=== PATIENT | male | born 1950 | race Caucasian/White ===

== ENCOUNTER 2019-03-19 15:45 | Outpatient (RCR) | payer MEDICARE, MEDICAID, SELFPAY | END 2019-04-15 00:01 | LOC: SPT 15:45 | PROVIDERS: Family Provider Family Medicine; Visit Provider Specialist | DX: M50.020 Cervical disc disorder with myelopathy, mid-cervical region, unspecified level (principal) | CPT/HCPCS: 97161; 97530 ==

== ENCOUNTER 2019-04-16 06:00 | Outpatient (RCR) | payer MEDICARE, MEDICAID, SELFPAY | END 2019-05-16 23:59 | disposition home or self-care (01) | LOC: SPT 06:00 | PROVIDERS: Family Provider Family Medicine; PCP Family Medicine; Visit Provider Specialist | DX: M50.020 Cervical disc disorder with myelopathy, mid-cervical region, unspecified level (principal); M25.512 Pain in left shoulder ==

== ENCOUNTER → 2019-04-22 10:00 | Outpatient (BNVA) | payer MEDICARE, MEDICAID, SELFPAY | PROVIDERS: Family Provider Family Medicine; PCP Family Medicine; Visit Provider Nurse Practitioner | DX: F50.01 Anorexia nervosa, restricting type (principal); F41.1 Generalized anxiety disorder; F33.2 Major depressive disorder, recurrent severe without psychotic features | CPT/HCPCS: 99214 ==

== ENCOUNTER → 2019-05-06 08:00 | Outpatient (BNVA) | payer MEDICARE, MEDICAID, SELFPAY | PROVIDERS: Family Provider Family Medicine; PCP Family Medicine; Referring Provider Specialist; Visit Provider Psychiatry & Neurology Neurology | DX: M54.12 Radiculopathy, cervical region (principal); M79.602 Pain in left arm | CPT/HCPCS: 95886; 95908 ==

== ENCOUNTER → 2019-06-17 14:46 | Outpatient (BNVA) | payer MEDICARE, MEDICAID, SELFPAY | PROVIDERS: Family Provider Family Medicine; PCP Family Medicine; Visit Provider Nurse Practitioner | DX: F41.1 Generalized anxiety disorder (principal); F33.2 Major depressive disorder, recurrent severe without psychotic features; F50.01 Anorexia nervosa, restricting type | CPT/HCPCS: 80061; 83036; 99214 ==

== ENCOUNTER 2019-08-13 15:31 | Inpatient (IN) | payer MEDICARE, MEDICAID, SELFPAY ==
[2019-08-13 15:45] VITALS: BP 143/92; PULSE 131; RESP 22; TEMP 36.9; O2SAT 97; BMI 20.5
--- NOTE | 2019-08-13 15:59 | ECG_ITS ---
Measurements Intervals [place] Rate: 119 P: 70 [place]: 160 QRS: 22 QRSD: 86 T: 64 QT: 308 QTc: 433 SINUS TACHYCARDIA POSSIBLE LEFT ATRIAL ENLARGEMENT [-0.1mV P WAVE IN V1/V2] POSSIBLE RIGHT VENTRICULAR CONDUCTION DELAY [RSR (QR) IN V1/V2] Compared to ECG 09/20/2017 11:52:07 Sinus rhythm no longer present Electronically Signed On 08-13-2019 19:29:06 CDT by Kait Angela M.D. [email or web address]
--- NOTE | 2019-08-13 16:00 | W.ED.SOB ---
HPI - SOB/Dyspnea General: Chief Complaint: Shortness of Breath/Dyspnea Stated Complaint: COUGHING UP BLOOD Time Seen by Provider: 08/13/19 15:49 Source: patient Mode of arrival: ambulatory Limitations: no limitations History of Present Illness: HPI Narrative: 69-year-old gentleman with a history of anxiety and depression presents to the emergency department today with complaints of hemoptysis. Symptoms started about 2 weeks ago, he says it is mild and it is just a light amount of blood that he is coughing up. He has been hoping that it would resolve MD elicited complaint: shortness of breath and cough Onset (ago): week(s) (2) Timing: intermittent Severity: mild Exacerbating factors: nothing Relieving factors: nothing Associated symptoms: Reports chest pain, cough and hemoptysis; Deny abdominal pain, fever(s), nausea, polydipsia, polyuria or vomiting Review of Systems General: Reports: 10 or more systems reviewed and unremarkable except in HPI and below Const: Denies: fever, chills or body aches Eyes: Denies: change in vision or blurry vision ENMT: Denies: throat pain, enlarged tonsils, painful swallowing, hoarseness, mouth pain or swelling of lips/tongue Card: Reports: chest pain Resp: Reports: coughing up blood GI: Denies: abdominal pain, nausea or vomiting : Denies: flank pain, painful urination, urinary frequency, urinary urgency or urinary hesitancy Musc: Denies: neck pain, back pain or extremity swelling Skin/Breast: Denies: rash, itching or redness Neuro: Denies: headache, numbness in extremities or weakness in extremities Endo: Denies: excessive urination, excessive thirst or tired all the time [facility] ED PFSH: Medical History (Updated 08/13/19 @ 17:31 by Anjana Gonzalez MD, [facility] [place] Anorexia nervosa, restricting type Generalized anxiety disorder Social History Smoking and tobacco status: current every day smoker Physical Exam Const: COMMON NORMALS: no apparent distress, average body habitus, oriented x3, no limitations, healthy appearing, alert and well nourished HENMT: COMMON NORMALS: normocephalic, head/scalp atraumatic and moist oral mucous membranes HEAD & SCALP: normocephalic and atraumatic Eye: COMMON NORMALS: PERRL, EOMs intact bilaterally, conjunctivae normal and no scleral icterus CONJUNCTIVA: Yes conjunctivae normal PUPIL: Yes PERRL Neck/C-Spine: COMMON NORMALS: full ROM, supple, no meningeal signs, no JVD and no carotid bruits Chest: COMMONS NORMALS: inspection of chest normal and palpation of chest normal Resp: COMMON NORMALS: normal respiratory effort, no retractions, no use of accessory muscles, clear to auscultation bilaterally and percussion normal AUSCULTATION: clear to auscultation bilaterally and diminished lung sounds on the right in the upper lung haines PERCUSSION: percussion normal Cardio: COMMON NORMALS: no JVD, regular rate, regular rhythm, S1 normal heart sound, S2 normal heart sound, no gallops, no clicks, no murmurs, no rub and peripheral pulses 2+ throughout RATE: regular rate RHYTHM: regular rhythm HEART SOUNDS: S1 normal and S2 normal PERIPHERAL PULSES: pulses 2+ throughout GI: COMMON NORMALS: normal to inspection, nondistended, normoactive bowel sounds, soft to palpation, non-tender, no hepatosplenomegaly, no masses and no bruits PALPATION: Yes soft and Yes no hepatosplenomegaly : COMMON NORMALS: Yes no CVA tenderness BLADDER/KIDNEY EXAM: Yes no CVA tenderness Back/Pelvis: COMMON NORMALS: no CVA tenderness Extremity: COMMON NORMALS: normal to inspection, full ROM, normal capillary refill, no calf tenderness and no pedal edema Neuro: COMMON NORMALS: oriented x3 SENSORIUM/ORIENTATION: Yes alert MENINGEAL SIGNS: Yes no meningeal signs Skin: COMMON NORMALS: no rashes or lesions noted, no wounds, skin turgor normal, no jaundice, no petechiae and no mottling GENERAL SKIN EXAM: no rashes or lesions noted and turgor normal Course Consultations: Consultation #1: Dr. Spain, patient's primary care provider. He kindly accepted the patient to his service. Time: 17:46 Consultation #2: Dr. Wong, deicer element winder machine. He will see the patient in the hospital tomorrow. Time: 17:55 Vital Signs: Vital signs: Vital Signs Temperature 98.4 F 08/13/19 15:45 Pulse Rate 103 H 08/13/19 18:02 Respiratory Rate 18 08/13/19 18:02 Blood Pressure 128/81 08/13/19 18:02 Pulse Oximetry 97 08/13/19 18:02 MDM - SOB/Dyspnea MDM Narrative: Medical decision making narrative: 69-year-old male who presented to the emergency department with concerns of hemoptysis. Evaluation in the emergency department shows a pretty large right lung mass likely malignant which is causing an obstruction of his right main bronchus with postobstructive atelectasis and pneumonia. He is also septic as evidenced by tachycardia, elevated lactic acid, and his CT findings. He is therefore admitted to the hospital for IV antibiotics and evaluation by the deicer element winder machine. Lab Data: Labs: Lab Results 08/13/19 08/13/19 08/13/19 Range/Units 16:02 16:02 16:02 WBC 28.6 H (4.0-10.0) 10^3/ uL RBC 4.03 L (4.1-5.3) 10^6/u L Hgb 11.0 L (11.7-16.6) g/dL Hct 36.3 L (42.0-52.0) % MCV 90.1 (80-94) fL MCH 27.3 L (28.0-34.0) pg MCHC 30.3 (30.0-36.0) g/dL RDW 13.6 (12.1-15.1) % Plt Count 395 (130-400) 10^3/c mm MPV 9.7 (7.4-10.4) fL Neut % (Auto) 91.4 % Lymph % (Auto) 4.3 % [place] % (Auto) 2.9 % Eos % (Auto) 0.3 % Baso % (Auto) 0.4 % Neut # (Auto) 26.1 H (1.8-7.7) 10^3/u L Lymph # (Auto) 1.2 (0.8-4.8) 10^3/u L [place] # (Auto) 0.8 (0.2-0.9) 10^3/u L Eos # (Auto) 0.1 (0.0-0.8) 10^3/u L Baso # (Auto) 0.1 (0.0-0.1) 10^3/u L Nucleated RBC % (a uto) 0 % Nucleated RBCs # 0.0 /100WBC D-Dimer 0.42 (0-0.59) ug/mIFE U Sodium 138 (136-145) mmol/L Potassium 4.1 (3.5-5.1) mmol/L Chloride 100 (98-107) mmol/L Carbon Dioxide 22 (22-29) mmol/L Anion Gap 20.1 H (5-19) BUN 20 (8-23) mg/dL Creatinine 1.6 H (0.7-1.2) mg/dL GFR Calculation 42.9 L (90-130) mL/min Glucose 192 H (65-115) mg/dL Calculated Osmolal ity 288 (285-295) mOsm/k g Lactic Acid (0.5-2.2) mmol/L Calcium 9.9 (8.5-10.5) mg/dL Total Bilirubin 0.2 (0.15-1.2) mg/dL AST 16 (0-40) U/L ALT 13 (0-41) U/L Alkaline Phosphata se 93 (40-130) IU/L Total Protein 8.3 (6.6-8.7) g/dL Albumin 4.0 (3.5-5.2) g/dL Globulin 4.3 (1.3-4.6) g/dL 08/13/19 Range/Units 16:02 WBC (4.0-10.0) 10^3/ uL RBC (4.1-5.3) 10^6/u L Hgb (11.7-16.6) g/dL Hct (42.0-52.0) % MCV (80-94) fL MCH (28.0-34.0) pg MCHC (30.0-36.0) g/dL RDW (12.1-15.1) % Plt Count (130-400) 10^3/c mm MPV (7.4-10.4) fL Neut % (Auto) % Lymph % (Auto) % [place] % (Auto) % Eos % (Auto) % Baso % (Auto) % Neut # (Auto) (1.8-7.7) 10^3/u L Lymph # (Auto) (0.8-4.8) 10^3/u L [place] # (Auto) (0.2-0.9) 10^3/u L Eos # (Auto) (0.0-0.8) 10^3/u L Baso # (Auto) (0.0-0.1) 10^3/u L Nucleated RBC % (a uto) % Nucleated RBCs # /100WBC D-Dimer (0-0.59) ug/mIFE U Sodium (136-145) mmol/L Potassium (3.5-5.1) mmol/L Chloride (98-107) mmol/L Carbon Dioxide (22-29) mmol/L Anion Gap (5-19) BUN (8-23) mg/dL Creatinine (0.7-1.2) mg/dL GFR Calculation (90-130) mL/min Glucose (65-115) mg/dL Calculated Osmolal ity (285-295) mOsm/k g Lactic Acid 2.8 H (0.5-2.2) mmol/L Calcium (8.5-10.5) mg/dL Total Bilirubin (0.15-1.2) mg/dL AST (0-40) U/L ALT (0-41) U/L Alkaline Phosphata se (40-130) IU/L Total Protein (6.6-8.7) g/dL Albumin (3.5-5.2) g/dL Globulin (1.3-4.6) g/dL Imaging Data^: CTA Chest: Attestation: I personally reviewed and interpreted this imaging study as follows: Radiologist's impression: [place] [address] CT Scan Report Signed Patient: Jevon Jeffrey #: [id number] : 1950Acct#:[id number] Age/Sex: 69 / MADM Date: 08/13/19 [facility] Attending Dr: Ordering Provider/Ordering MD: Anjana Gonzalez MD, [facility] [place] Date of Service: 08/13/19 Procedure(s): CT angio chest PE protcl [id number] Accession Number(s): [id number] Report Number: [id number] PROCEDURE INFORMATION: Exam: CT Angiography Chest With Contrast Exam date and time: 08/13/2019 4:46 PM Age: 69 years old Clinical indication: Other: Hemoptysis; Other: Pain between shoulder blades; Prior surgery; Surgery type: Gb; Additional info: Hemoptysis, interscapular pain TECHNIQUE: Imaging protocol: Computed tomographic angiography of the chest with intravenous contrast. 3D rendering: MIP and/or 3D reconstructed images were created by the technologist. Radiation optimization: All CT scans at this facility use at least one of these dose optimization techniques: automated exposure control; mA and/or kV adjustment per patient size (includes targeted exams where dose is matched to clinical indication); or iterative reconstruction. Contrast material: VISI 320; Contrast volume: 70 ml; Contrast route: IV; COMPARISON: No relevant prior studies available. RADIATION DOSE METRICS: Total DLP: 530.42 mGy-cm FINDINGS: Pulmonary arteries: Normal. No pulmonary emboli. Great vessels off aortic arch: Calcification of the thoracic aorta and/or great vessels consistent with atherosclerotic vessel disease. Aorta: Unremarkable. No aortic aneurysm. No aortic dissection. Lungs: 6.2 x 3.9 x 4.8 cm right right superior hilar/upper lobe mass with obstruction of the right upper lobe bronchus with postobstructive pneumonia/atelectasis and loss of volume. Probable lung cancer. Moderate centrilobular emphysema. Pleural space: Probable pleural based metastasis over the right upper lung field. Heart: Unremarkable. No cardiomegaly. No pericardial effusion. Lymph nodes: Moderate mediastinal and right hilar adenopathy. Gallbladder and bile ducts: Surgical clips in the gallbladder fossa consistent with cholecystectomy. Bones/joints: Postoperative metallic fixation of the cervical spine with or without metallic artifact. Soft tissues: Unremarkable. CT/CT angio chest PE protcl [id number] IMPRESSION: 1. 6.2 x 3.9 x 4.8 cm right right superior hilar/upper lobe mass with obstruction of the right upper lobe bronchus with postobstructive pneumonia/atelectasis and loss of volume. Probable lung cancer. 2. Moderate mediastinal and right hilar metastatic adenopathy. 3. Probable pleural based metastasis over the right upper lung field. 4. Moderate centrilobular emphysema. 5. No pulmonary embolus or aortic dissection. Radiation Dose CTDIVOL = (mGy): DLP = 530.42 (mGy-cm) Dictated By:Gino Stephen MD Signed By:Gino Stephenigned Date/Time:08/13/19 1711 EKG Data^: EKG 1: Attestation: I personally reviewed and interpreted this EKG as follows: EKG Interpretation Date: 08/13/19 EKG interpretation time: 15:54 Interpretation: Sinus tachycardia. Heart rate 119. Right ventricular conduction delay. No ST changes. Discharge Plan Discharge Patient Disposition: Home, Self-Care Clinical Impression: Lung mass, Bronchial obstruction Pneumonia Qualifiers: Pneumonia type: due to unspecified organism Laterality: right Lung location: upper lobe of lung Qualified Code(s): J18.9 - Pneumonia, unspecified organism Condition: Stable Discharge Orders: Discharge Order (Routine); Ordered 08/13/19 Ordered By: Anjana Gonzalez Coding Level of Care Code ED Prospecting Driller for jamaal Killian
[2019-08-13 16:14] LABS: Basophils # 0.1 10^3/uL (0.0-0.1); Basophils % 0.4 %; Eosinophils # 0.1 10^3/uL (0.0-0.8); Eosinophils % 0.3 %; Hematocrit 36.3 % (42.0-52.0); Lymphocytes # 1.2 10^3/uL (0.8-4.8); Lymphocytes % 4.3 %; Mean Corpuscular HGB Conc 30.3 g/dL (30.0-36.0); Mean Corpuscular Hemoglobin 27.3 pg (28.0-34.0); Mean Corpuscular Volume 90.1 fL (80-94); Mean Platelet Volume 9.7 fL (7.4-10.4); Monocytes # 0.8 10^3/uL (0.2-0.9); Monocytes % 2.9 %; Neutrophils # 26.1 10^3/uL (1.8-7.7); Neutrophils % 91.4 %; Nucleated Red Blood Cells % 0 %; Platelet Count 395 10^3/cmm (130-400); Red Blood Count 4.03 10^6/uL (4.1-5.3); Red Cell Distribution Width 13.6 % (12.1-15.1); White Blood Count 28.6 10^3/uL (4.0-10.0)
[2019-08-13 16:30] LABS: D Dimer 0.42 ug/mIFEU (0-0.59)
[2019-08-13 16:34] LABS: Lactic Sepsis W/Reflex 2.8 mmol/L (0.5-2.2)
[2019-08-13 16:35] LABS: Alanine Aminotransferase 13 U/L (0-41); Alkaline Phosphatase 93 IU/L (40-130); Anion Gap 20.1 (5-19); Aspartate Amino Transferase 16 U/L (0-40); Blood Urea Nitrogen 20 mg/dL (8-23); Calcium 9.9 mg/dL (8.5-10.5); Carbon Dioxide 22 mmol/L (22-29); Chloride 100 mmol/L (98-107); Globulin 4.3 g/dL (1.3-4.6); Glomerular Filtration Rate 42.9 mL/min (90-130); Glucose 192 mg/dL (65-115); Osmolality Calculated 288 mOsm/kg (285-295); Potassium 4.1 mmol/L (3.5-5.1); Sodium 138 mmol/L (136-145); Total Bilirubin 0.2 mg/dL (0.15-1.2); Total Protein 8.3 g/dL (6.6-8.7)
[2019-08-13] MEDS: iodixanol 320 mg/mL 100mL Btl IV (16:54)
[2019-08-13 17:28] VITALS: BP 104/71; PULSE 116; RESP 16; O2SAT 97
[2019-08-13] MEDS: cefTRIAXone 1,000 MG in sodium chloride 0.9% (plus) 50 ML 100 MG IV (17:36)
[2019-08-13 17:59] LABS: Reflex Lactate Order REFLEX LACTIC ORDERD
[2019-08-13] MEDS: sodium chloride 0.9% 1,000 ML 999 ML IV (18:01)
[2019-08-13 18:02] VITALS: BP 128/81; PULSE 103; RESP 18; O2SAT 97
[2019-08-13] MEDS: HYDROcodone-acetaminophen 5-325 mg Tablet 1 TAB PO (18:26)
[2019-08-13] MEDS: piperacillin-tazobactam 3.375 GM in sodium chloride 0.9% (plus) 50 ML IV (18:36)
[2019-08-13 18:55] VITALS: BP 128/82; PULSE 98; RESP 18; O2SAT 97
--- NOTE | 2019-08-13 19:19 | PC.NURSE ---
Report received from Leyda GARCIA at this time in the ER. Patient arrive in the ER today with complaint of coughing up blood for two weeks. Patient stated that he did not come sooner because he thought it would go away. CT scan in the ER shows possible lung cancer. Patient is A&Ox4 per Leyda GARCIA. Patient has a # 18 gauge in his left AC. Patient was given 1 liter of fluids, 1 gram of Rocephin and a Hydrocodone in the ER. Patient has Zosyn running.
[2019-08-13 20:11] VITALS: BP 103/69; PULSE 89; RESP 22; TEMP 36.8; O2SAT 96
--- NOTE | 2019-08-13 20:19 | P.HP_ITS ---
Providers/Chief Complaint Admitting Physician: Silverio Spain MD Primary Care Provider: Silverio Spain MD Chief Complaint: COUGHING UP BLOOD History of Present Illness Chalino Jeffrey is a 69 year old male with past medical history of anxiety and depression who presented to the emergency department with 2 weeks of coughing up blood. The patient said that he has had a mild cough that started approximately 2 weeks ago and initially there was minimal blood tinge in it and it gradually has worsened. There is not a large amount of blood at this time. The patient has also felt like he would be losing weight if not drinking Ensure on a regular basis. The patient has felt more fatigued in general. Otherwise he has been doing well without any chest pains, fever, significant change in dyspnea, abdominal pain, nausea, vomiting, diarrhea, constipation. Medications/Allergies Home Medications Medication Instructions Recorded Confirmed Last Taken Type alprazolam 0.5 mg tablet 0.5 mg PO BID PRN #60 tab 06/18/19 08/13/19 08/12/19 Rx Zoloft 200 mg PO DAILY 08/13/19 08/13/19 08/13/19 History Zyprexa 15 mg PO BEDTIME 08/13/19 08/13/19 08/12/19 History amoxicillin-pot clavulanate 1 tab PO BID #14 tab 08/13/19 Unknown Rx [Augmentin] multivitamin [Multiple Vitamins] 1 tab PO DAILY 08/13/19 08/13/19 08/12/19 History Allergies Allergy/AdvReac Type Severity Reaction Status Date / Time No Known Allergies Allergy Verified 05/06/19 08:09 PFSH Acute PFSH: Medical History (Updated 08/13/19 @ 20:23 by Silverio Spain MD) Anorexia nervosa, restricting type Closed left clavicular fracture Generalized anxiety disorder Surgical History (Updated 08/13/19 @ 20:23 by Silverio Spain MD) H/O neck surgery Hx of cholecystectomy Social History (Updated 08/13/19 @ 20:24 by Silverio Spain MD) Smoking and tobacco status: current every day smoker cigarettes Years cigarettes smoked: 50 Alcohol intake: current Alcohol intake frequency: few times a month Vitals/I&O/Wt Last Vital Signs Temp 98.4 F 08/13/19 15:45 Pulse 98 08/13/19 18:55 Resp 18 08/13/19 18:55 BP 128/82 08/13/19 18:55 Pulse Ox 97 08/13/19 18:55 08/13/19 08/13/19 08/13/19 06:59 14:59 22:59 Intake Total 50 / 50 Balance 50 / 50 Weight last 48 hrs Weight 135 lb Physical Exam Narrative: EXAM NARRATIVE: General: Alert and oriented x3 Eyes: PERRLA, EOMI Mouth: Mucous membranes moist without lesions Cardiac: Regular rhythm with mild tachycardia without murmurs Lungs: Decreased air entry bilaterally. Scattered rhonchi. Mildly decreased air entry in the right upper lung. No significant wheezes or crackles at this time. Abdomen: Soft, nontender, no hepatosplenomegaly noted Extremities: No edema Data : 08/13/19 16:02 08/13/19 16:02 A&P Assessment and plan (1) Lung mass: Status: Acute (2) Pneumonia: Status: Acute Qualifiers: Laterality: right Lung location: upper lobe of lung Pneumonia type: due to unspecified organism Qualified Code(s): J18.9 - Pneumonia, unspecified organism (3) Major depressive disorder, recurrent severe without psychotic features: Status: Acute Additional A&P Information 1. Lung mass -the patient has a new finding of a lung mass in the right upper l obe that is causing obstruction of the bronchus. The mass is 6.2 cm in diameter and is causing a postobstructive pneumonia. Dr. Wong has been consulted by the ER physician and further recommendations will be given. I appreciate his consultation. The patient is in agreement with proceeding with biopsy and treatment options. 2. Right upper lobe pneumonia -the patient has a postobstructive pneumonia secondary to the above lung mass. His lactic acid level is 2.8. We will recheck this level to be sure that it is improving. The patient will have his pro calcitonin level checked. He will be given another fluid bolus to complete the 30mL/kg bolus. Blood cultures have been ordered. The patient has been given Zosyn in the ER and I will add levofloxacin for coverage. I would expect to give the patient IV antibiotics for the next 2 to 3 days. Currently the patient is stable. We will have him on telemetry in case of signs that he is worsening. 3. Depression -the patient is currently stable and seems to be taking the news well. We will certainly watch for signs of this worsening. 4. Prophylaxis -Lovenox for DVT prophylaxis. Attestations Medical Necessity Statement*: The patient will be here for greater than 2 midnights for treatment of postobstructive pneumonia secondary to a new lung mass finding. Coding Level of Care Code Acute Crawler Crane Operator for Padmini Killian Diagnoses Lung mass R91.8 Pneumonia J18.9 Laterality: right Lung location: upper lobe of lung Pneumonia type: due to unspecified organism Major depressive disorder, recurrent severe without psychotic features F33.2
[2019-08-13 20:49] LABS: Procalcitonin 0.13 ng/mL (0-0.5)
[2019-08-13] MEDS: sodium chloride 0.9% 500 ML IV (21:23)
[2019-08-13] MEDS: heparin 5,000 unit/mL INJ 1 mL 5000 UNIT SUBCUT (21:23)
[2019-08-13] MEDS: OLANZapine 10 mg TABLET PO (21:23)
[2019-08-13] MEDS: OLANZapine 5 mg TABLET PO (21:23)
[2019-08-13] MEDS: levofloxacin-dextrose 5 % 500 MG/100 ML PREMIX 100 MG IV (21:24)
[2019-08-13 22:23] VITALS: O2SAT 98
[2019-08-13] MEDS: sodium chloride 0.9% 1,000 ML 100 ML IV (22:45)
[2019-08-14] VITALS: BP 101/68; PULSE 77; RESP 18; O2SAT 96
[2019-08-14] MEDS: piperacillin-tazobactam 3.375 GM in sodium chloride 0.9% (plus) 50 ML IV ×3 (01:54→17:36)
[2019-08-14 04:00] VITALS: BP 100/63; PULSE 79; RESP 20; TEMP 36.6; O2SAT 96
[2019-08-14] MEDS: heparin 5,000 unit/mL INJ 1 mL 5000 UNIT SUBCUT ×3 (05:15→21:20)
[2019-08-14 05:39] LABS: Basophils # 0.1 10^3/uL (0.0-0.1); Basophils % 0.6 %; Eosinophils # 0.5 10^3/uL (0.0-0.8); Eosinophils % 3.2 %; Hematocrit 31.9 % (42.0-52.0); Hemoglobin 9.7 g/dL (11.7-16.6); Lymphocytes # 2.3 10^3/uL (0.8-4.8); Lymphocytes % 16.4 %; Mean Corpuscular HGB Conc 30.4 g/dL (30.0-36.0); Mean Corpuscular Hemoglobin 27.2 pg (28.0-34.0); Mean Corpuscular Volume 89.4 fL (80-94); Mean Platelet Volume 9.6 fL (7.4-10.4); Monocytes % 6.9 %; Neutrophils # 10.3 10^3/uL (1.8-7.7); Neutrophils % 72.3 %; Nucleated Red Blood Cells % 0 %; Platelet Count 349 10^3/cmm (130-400); Red Blood Count 3.57 10^6/uL (4.1-5.3); Red Cell Distribution Width 13.6 % (12.1-15.1); White Blood Count 14.3 10^3/uL (4.0-10.0)
[2019-08-14 06:03] LABS: Blood Urea Nitrogen 16 mg/dL (8-23); Calcium 8.5 mg/dL (8.5-10.5); Carbon Dioxide 21 mmol/L (22-29); Chloride 110 mmol/L (98-107); Glomerular Filtration Rate 59.9 mL/min (90-130); Glucose 92 mg/dL (65-115); Osmolality Calculated 290 mOsm/kg (285-295); Sodium 142 mmol/L (136-145)
[2019-08-14 06:04] LABS: Lactic Acid level (Lactate) 0.5 mmol/L (0.5-2.2)
[2019-08-14 07:07] LABS: Procalcitonin 0.55 ng/mL (0-0.5)
[2019-08-14 07:47] VITALS: BP 123/74; PULSE 80; RESP 18; TEMP 36.4; O2SAT 98
[2019-08-14] MEDS: sertraline 100 mg Tablet 200 MG PO (08:34)
[2019-08-14] MEDS: multivitamin therapeutic Tablet 1 TAB PO (08:34)
[2019-08-14] MEDS: sodium chloride 0.9% 1,000 ML 100 ML IV ×2 (09:25→19:26)
--- NOTE | 2019-08-14 09:43 | P.CONIM_ITS ---
Providers/Reason For Consult Consulting Physican/Specialty*: Pulmonary critical care medicine Reason for Consult*: Right upper lobe lung mass Attending Physician: Silverio Spain MD Primary Care Provider: Silverio Spain MD History of Present Illness History of Present Illness Chalino Jeffrey is a 69 year old male who presented to the ED yesterday with a complaint of 2 weeks history of hemoptysis. The patient is an active smoker and prior to experiencing hemoptysis he was having chronic cough with sputum production intermittent wheezing and exertional shortness of breath with walking. When the patient presented to the ED with hemoptysis yesterday, he underwent a CT scan of the chest which revealed a 6.2 cm right upper lobe lung mass with cavitary lesion as well as significant volume loss on the right side. The patient was found to have leukocytosis with elevated lactic acid and was admitted with a diagnosis of pneumonia. Currently the patient is on piperacillin tazobactam and Levaquin. It appears that the patient had quit smoking and has been vaping with nicotine products over the past 6 or so years in an attempt to quit smoking. The patient was seen and examined today. Patient is comfortable in bed. Denies any resting shortness of breath. He is complaining of some nausea but no vomiting. He is denying any history of significant weight loss or loss of appetite. Review of Systems Narrative: General: No fevers chills night sweats. Positive for fatigue Skin: No rash HEENT: No nasal congestion, rhinitis, sinusitis, sneezing, hoarseness of voice. Neck: There is no neck swelling, mass or swollen glands. Respiratory: Please see my HPI. Cardiovascular: No chest pain, resting shortness of breath, orthopnea, proximal nocturnal dyspnea, palpitation or lower extremity edema. Gastrointestinal: Mild nausea but no abdominal pain, vomiting, melena or symptoms suggestive of GERD. Musculoskeletal: No joint pain or swelling, muscle weakness, morning stiffness, numbness or tingling. Neurological: Patient is awake alert and oriented x3, no paralysis, gross motor function is normal. Psychiatric: Has history of anxiety Meds/Allergies Home Medications and Allergies Home Medications Medication Instructions Recorded Confirmed Last Taken Type alprazolam 0.5 mg tablet 0.5 mg PO BID PRN #60 tab 06/18/19 08/13/19 08/12/19 Rx Zoloft 200 mg PO DAILY 0408/13/19 08/13/19 History Zyprexa 15 mg PO BEDTIME 08/13/19 08/13/19 08/12/19 History amoxicillin-pot clavulanate 1 tab PO BID #14 tab 08/13/19 Unknown Rx [Augmentin] multivitamin [Multiple Vitamins] 1 tab PO DAILY 08/13/19 08/13/19 08/12/19 History Allergies Allergy/AdvReac Type Severity Reaction Status Date / Time No Known Allergies Allergy Verified 05/06/19 08:09 Current Medications Current Medications Generic Name Dose Route Start Last Admin Trade Name Freq PRN Reason Stop Dose Admin Hydrocodone Bitart/Acetaminophen 1 tab 08/13/19 17:55 08/13/19 18:26 [place] 5-325 Mg PO 1 tab Q4H PRN Administration MODERATE TO SEVERE PAIN Heparin Sodium (Beef Lung) 5,000 unit 08/13/19 21:00 08/14/19 05:15 Heparin SUBCUT 5,000 unit Q8H VIKY Administration Sodium Chloride 1,000 mls @ 100 mls/hr 08/13/19 18:00 08/14/19 09:25 Sodium Chloride 0.9% IV 100 mls/hr .Q10H VIKY Administration Levofloxacin/Dextrose 500 mg in 100 mls @ 100 mls/hr 08/13/19 20:15 08/13/19 22:31 Levaquin-D5w IV Infused Q24H VIKY Infusion Protocol Piperacillin Sod/Tazobactam 50 mls @ 12.5 mls/hr 08/14/19 02:00 08/14/19 05:09 Sod 3.375 gm/ Sodium Chloride IV Infused Q8H VIKY Infusion Protocol Multivitamins Therapeutic 1 tab 08/14/19 09:00 08/14/19 08:34 Multivitamin Tab PO 1 tab DAILY VIKY Administration Olanzapine 10 mg 08/13/19 21:00 08/13/19 21:23 Zyprexa PO 10 mg BEDTIME VIKY Administration Olanzapine 5 mg 08/13/19 21:00 08/13/19 21:23 Zyprexa PO 5 mg BEDTIME VIKY Administration Sertraline HCl 200 mg 08/14/19 09:00 08/14/19 08:34 Zoloft PO 200 mg DAILY VIKY Administration PFSH Acute PFSH: Medical History Anorexia nervosa, restricting type Closed left clavicular fracture Generalized anxiety disorder Surgical History H/O neck surgery Hx of cholecystectomy Social History Smoking and tobacco status: current every day smoker cigarettes Years cigarettes smoked: 50 Alcohol intake: current Alcohol intake frequency: few times a month Vitals/I&O/Wt Last Vital Signs Temp 97.6 F 08/14/19 07:47 Pulse 80 08/14/19 07:47 Resp 18 08/14/19 07:47 BP 123/74 08/14/19 07:47 Pulse Ox 98 08/14/19 07:47 08/13/19 08/14/19 08/14/19 22:59 06:59 14:59 Intake Total 1945 / 1945 200 / 2145 1000 / 1000 Output Total 275 / 275 450 / 725 250 / 250 Balance 1670 / 1670 -250 / 1420 750 / 750 Weight last 48 hrs Weight 135 lb Physical Exam Narrative: EXAM NARRATIVE: General: Patient is awake alert and oriented, in no distress. HEENT: Pupil bilateral symmetric, light and accommodation reflex present, extraocular muscle movement intact, no deformity of the nose Neck: No JVD, no cervical or supraclavicular lymphadenopathy. Respiratory: Inspection: No visible deformity of the chest wall, no scar, no mass lesion Palpation: Trachea is deviated to the right, reduced expansion in the right hemithorax anteriorly, reduced vocal fremitus in the right upper anterior chest Percussion: Dullness to percussion over the right upper anterior chest, tympanic do not radiates Auscultation: Vesicular breath sound with prolonged expiration, no crackles or wheezing occasional rhonchi, reduced breath sound over the right anterior upper chest Cardiovascular: Regular rate and rhythm, S1-S2 present, no murmur, no right ventricular heave, no peripheral edema. Abdomen: Soft, nontender, nondistended, positive bowel sound. No palpable organomegaly. Musculoskeletal: No obvious joint deformity, gait was not examined Skin: No rash, no evidence of erythema nodosum or multiforme. Neuro: Mental status is normal, no gross cranial nerve deficit, normal motor and coordination. Data Micro: Micro: Microbiology 08/13/19 21:57 Blood Culture - Pr eliminary Blood SPECIMEN [facility] 08/13/19 18:02 Blood Culture - Pr eliminary Blood SPECIMEN [facility] Other Data: Other data: I have reviewed the patient's laboratory, microbiologic and radiologic data. As described in the history of present illness the patient has right upper lobe cavitary lesion which is likely malignant. The leukocytosis has improved significantly. The sputum culture is negative so far. A&P Assessment and plan (1) Lung mass: The patient has a 6.2 cm right upper lobe cavitary mass with loss of volume and infiltration of the right upper lobe bronchus. There is also mediastinal hilar lymphadenopathy. This is malignant unless proven otherwise. 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 The patient is currently on antibiotic therapy for postobstructive pneumonia. I am going to perform a bronchoscopy tomorrow. I have discussed the risks and benefits involved with the procedure with the patient. The patient will undergo a bronchoscopy with bronchoalveolar lavage, endobronchial and transbronchial biopsies as well as endobronchial ultrasound-guided transbronchial needle aspiration of lymph nodes. I will also possibly perform a transthoracic needle biopsy of the right upper lobe lung mass. The patient also has evidence of emphysema on the CT scan. He will need optimization if he has COPD. He will need pulmonary function test, 6-minute walk test with pulse oximetry as part of work-up for possible COPD as well as lung mass. The patient will stay n.p.o. past midnight today. Please hold the subcu heparin tomorrow morning. If the patient is stable otherwise he can be discharged home after the bronchoscopy tomorrow and he can follow-up with me in the office in a week. Thank you for the consultation! 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
[2019-08-14 10:43] VITALS: BP 132/77; PULSE 91; RESP 15; TEMP 36.4; O2SAT 92
--- NOTE | 2019-08-14 12:05 | PM.PN ---
Subjective Subjective: Interval history: The patient states that he is feeling better today. His cough is improving and he denies any hemoptysis today. The patient spoke with Dr. Wong and he is in agreement with the plan of care. Patient denies any abdominal pain, nausea, vomiting, diarrhea, constipation. Vitals/I&O/Wt Last Vital Signs Temp 97.6 F 08/14/19 10:43 Pulse 91 08/14/19 10:43 Resp 15 08/14/19 10:43 BP 132/77 08/14/19 10:43 Pulse Ox 92 08/14/19 10:43 08/13/19 08/14/19 08/14/19 22:59 06:59 14:59 Intake Total 1945 / 1945 200 / 2145 1000 / 1000 Output Total 275 / 275 450 / 725 850 / 850 Balance 1670 / 1670 -250 / 1420 150 / 150 Weight last 48 hrs Weight 135 lb Physical Exam Narrative: EXAM NARRATIVE: General: Alert and oriented x3 Cardiac: Regular rhythm with mild tachycardia without murmurs Lungs: Decreased air entry bilaterally. Scattered rhonchi. Mildly decreased air entry in the right upper lung. No significant wheezes or crackles at this time. Abdomen: Soft, nontender, no hepatosplenomegaly noted Extremities: No edema Data : 08/14/19 05:20 08/14/19 05:20 Micro: Microbiology 08/13/19 21:57 Blood Culture - Preliminary Blood SPECIMEN COLLECTED 08/13/19 18:02 Blood Culture - Preliminary Blood SPECIMEN COLLECTED A&P Assessment and plan (1) Lung mass: Status: Acute (2) Pneumonia: Status: Acute Qualifiers: Laterality: right Lung location: upper lobe of lung Pneumonia type: due to unspecified organism Qualified Code(s): J18.9 - Pneumonia, unspecified organism (3) Major depressive disorder, recurrent severe without psychotic features: Status: Acute Additional A&P Information 1. Lung mass -the patient has a new finding of a lung mass in the right upper lobe that is causing obstruction of the bronchus. The mass is 6.2 cm in diameter and is causing a postobstructive pneumonia. Dr. Wong has seen the patient and plans for a bronchoscopy with biopsy tomorrow. If he is doing well after this, the patient may be able to be discharged home in the afternoon. Further follow-up per Dr. Wong. 2. Right upper lobe pneumonia -the patient's lactic acid levels have improved and overall his white blood cell count has significantly improved from 28 to 14. We will continue with current IV antibiotics and if he continues to do well tomorrow we will plan for discharge home with outpatient antibiotics by mouth. This is certainly due to a postobstructive pneumonia. 3. Depression -the patient is currently stable and seems to be taking the news well. We will certainly watch for signs of this worsening. 4. Anemia -the patient has anemia and it is likely due to anemia of chronic disease, however I will check iron, vitamin B12 and folic acid levels and we will replace these if needed. 5. Prophylaxis -Heparin for DVT prophylaxis. We will hold tomorrow a.m.'s dose prior to procedure. Attestations Medical Necessity Statement*: The patient continues to need IV antibiotic therapy and inpatient therapy for the above issues. Possible discharge home over the next 1 to 2 days depending on his course. 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
[2019-08-14 12:45] LABS: Iron 55 ug/dL (59-158); Percent Saturation 28.2 % (20-50); Total Iron Binding Capacity 195 mcg/dl; Unsaturated Iron Binding 140 ug/dL (112-347)
[2019-08-14 13:01] LABS: Vitamin B12 708 pg/mL (232-1245)
[2019-08-14 13:02] LABS: Folate Level 16.1 ng/mL (4.5-32.2)
[2019-08-14] MEDS: HYDROcodone-acetaminophen 5-325 mg Tablet 1 TAB PO ×2 (13:53→21:20)
[2019-08-14 15:15] VITALS: BP 119/73; PULSE 83; RESP 20; TEMP 36.8
[2019-08-14] MEDS: nicotine 14 mg Patch 1 PATCH TRANSDERMA (16:42)
[2019-08-14 20:00] VITALS: BP 147/84; PULSE 99; RESP 20; TEMP 37.5; O2SAT 97
[2019-08-14] MEDS: levofloxacin-dextrose 5 % 500 MG/100 ML PREMIX 100 MG IV (21:17)
[2019-08-14] MEDS: OLANZapine 5 mg TABLET PO (21:19)
[2019-08-14] MEDS: ALPRAZolam 0.5 mg Tablet PO (21:20)
[2019-08-14] MEDS: OLANZapine 10 mg TABLET PO (21:20)
[2019-08-15] VITALS (20 sets, daily range): BP systolic 118–158; BP diastolic 71–103; PULSE 96–134; RESP 16–20; TEMP 35.9–37.2; O2SAT 94–100
[2019-08-15] MEDS: piperacillin-tazobactam 3.375 GM in sodium chloride 0.9% (plus) 50 ML IV (02:08)
[2019-08-15 05:06] LABS: Alanine Aminotransferase 10 U/L (0-41); Albumin Level 3.1 g/dL (3.5-5.2); Alkaline Phosphatase 68 IU/L (40-130); Anion Gap 15.5 (5-19); Aspartate Amino Transferase 15 U/L (0-40); Blood Urea Nitrogen 10 mg/dL (8-23); Calcium 8.6 mg/dL (8.5-10.5); Carbon Dioxide 20 mmol/L (22-29); Chloride 106 mmol/L (98-107); Globulin 3.8 g/dL (1.3-4.6); Glomerular Filtration Rate 73.9 mL/min (90-130); Glucose 92 mg/dL (65-115); Osmolality Calculated 282 mOsm/kg (285-295); Potassium 3.5 mmol/L (3.5-5.1); Sodium 138 mmol/L (136-145); Total Bilirubin 0.2 mg/dL (0.15-1.2); Total Protein 6.9 g/dL (6.6-8.7)
[2019-08-15 05:12] LABS: Basophils # 0.1 10^3/uL (0.0-0.1); Basophils % 0.6 %; Eosinophils # 0.5 10^3/uL (0.0-0.8); Hematocrit 34.2 % (42.0-52.0); Hemoglobin 9.6 g/dL (11.7-16.6); Lymphocytes # 2.4 10^3/uL (0.8-4.8); Lymphocytes % 18.8 %; Mean Corpuscular HGB Conc 28.1 g/dL (30.0-36.0); Mean Corpuscular Hemoglobin 27.3 pg (28.0-34.0); Mean Corpuscular Volume 97.2 fL (80-94); Mean Platelet Volume 9.9 fL (7.4-10.4); Monocytes # 0.9 10^3/uL (0.2-0.9); Monocytes % 6.5 %; Neutrophils # 9.1 10^3/uL (1.8-7.7); Neutrophils % 69.8 %; Nucleated Red Blood Cells % 0 %; Platelet Count 286 10^3/cmm (130-400); Red Blood Count 3.52 10^6/uL (4.1-5.3); Red Cell Distribution Width 13.5 % (12.1-15.1)
[2019-08-15] MEDS: sodium chloride 0.9% 1,000 ML 100 ML IV (05:30)
--- NOTE | 2019-08-15 07:25 | PC.NURSE ---
To surgery via wheelchair for Bronchoscopy
--- NOTE | 2019-08-15 07:34 | P.ANESASSM_ITS ---
Pre-Anesthetic Assessment Pre-Anesthetic Assessment: Height/Weight: Height 1.73 m Weight 61.235 kg Temp Pulse Resp BP Pulse Ox 98.5 F 108 H 18 158/91 98 08/15/19 07:28 08/15/19 07:28 08/15/19 07:28 08/15/19 07:28 08/15/19 07:28 Preop Diagnosis: hemoptysis Proposed Procedure: Operation Date: 08/15/19 09:10 Proposed Procedures p Ebus(Right) - Biplab MD Judith Familial anesthetic complications: None Was Beta Jenniffer taken within 24 hours: N/A Last intake: Intake Last Liquid Date 08/14/19 Last Liquid Time 22:00 Last Solid Date 08/14/19 Last Solid Time 17:00 Social: Social History: No alcohol Comment: vapes - nicotine Exam: Pre-Anes Outpt Exam: alert, oriented x 3, clear to auscultation bilaterally and regular rate & rhythm Airway: Cervical ROM: WNL MP: 3 Additional comments: dentures Pulmonary: Comments: hemoptysis, lung mass, pnrumonia, bronchial obstruction CV/HEM: CV/HEM: None reported : : None reported Hepatic: Hepatic: None reported GI: GI: None reported Metabolic: Metabolic: None reported Musc/skel: Musc/skel: None reported Neuropsych: Neuropsych: None reported Anesthetic Plan: ASA status: 3 Anesthesia: General Risk of > 500 ml blood loss (7ml/kg in children): No Meds/Allergies Current Medications: Current Medications Generic Name Dose Route Start Last Admin Trade Name Freq PRN Reason Stop Dose Admin Hydrocodone Bitart /Acetaminophen 1 tab 08/13/19 17:55 08/14/19 21:20 [place] 5-325 Mg PO 1 tab Q4H PRN Administration MODERATE TO SEVER E PAIN Alprazolam 0.5 mg 08/13/19 20:18 08/14/19 21:20 Xanax PO 0.5 mg BID PRN Administration anxiety Heparin Sodium (Be ef Lung) 5,000 unit 08/13/19 21:00 08/15/19 05:11 Heparin SUBCUT Not Given Q8H VIKY Sodium Chloride 1,000 mls @ 100 m ls/hr 08/13/19 18:00 08/15/19 05:30 Sodium Chloride 0.9% IV 100 mls/hr .Q10H VIYK Administration Levofloxacin/Dextr ose 500 mg in 100 mls @ 100 mls/hr 08/13/19 20:15 08/14/19 21:17 Levaquin-D5w IV 100 mls/hr Q24H VIKY Administration Protocol Piperacillin Sod/T azobactam 50 mls @ 12.5 mls /hr 08/14/19 02:00 08/15/19 06:18 Sod 3.375 gm/ So dium Chloride IV Infused Q8H VIKY Infusion Protocol Multivitamins Ther apeutic 1 tab 08/14/19 09:00 08/14/19 08:34 Multivitamin Tab PO 1 tab DAILY VIKY Administration Nicotine 1 patch 08/14/19 16:30 08/14/19 16:42 Nicoderm 14 Mg P atch TRANSDERMA 1 patch DAILY VIKY Administration Olanzapine 10 mg 08/13/19 21:00 08/14/19 21:20 Zyprexa PO 10 mg BEDTIME VIKY Administration Olanzapine 5 mg 08/13/19 21:00 08/14/19 21:19 Zyprexa PO 5 mg BEDTIME VIKY Administration Sertraline HCl 200 mg 08/14/19 09:00 08/14/19 08:34 Zoloft PO 200 mg DAILY VIKY Administration PFSH Anesthesia PFSH: Medical History Anorexia nervosa, restricting type Closed left clavicular fracture Generalized anxiety disorder Surgical History H/O neck surgery Hx of cholecystectomy Social History Smoking and tobacco status: current every day smoker cigarettes Years cigarettes smoked: 50 Alcohol intake: current Alcohol intake frequency: few times a month Data Anesthesia CBC & Chem 7: 08/15/19 03:44 08/15/19 03:44 Other Labs: Laboratory Results - last 48 hr 08/13/19 08/13/19 08/13/19 16:02 16:02 16:02 WBC 28.6 H RBC 4.03 L Hgb 11.0 L Hct 36.3 L MCV 90.1 MCH 27.3 L MCHC 30.3 RDW 13.6 Plt Count 395 MPV 9.7 Neut % (Auto) 91.4 Lymph % (Auto) 4.3 [place] % (Auto) 2.9 Eos % (Auto) 0.3 Baso % (Auto) 0.4 Neut # (Auto) 26.1 H Lymph # (Auto) 1.2 [place] # (Auto) 0.8 Eos # (Auto) 0.1 Baso # (Auto) 0.1 Nucleated RBC % (auto) 0 Nucleated RBCs # 0.0 D-Dimer 0.42 Sodium 138 Potassium 4.1 Chloride 100 Carbon Dioxide 22 Anion Gap 20.1 H BUN 20 Creatinine 1.6 H GFR Calculation 42.9 L Glucose 192 H Calculated Osmolality 288 Lactic Acid Lactic Acid (Sepsis) Calcium 9.9 Iron TIBC % Saturation Unsat Iron Binding Total Bilirubin 0.2 AST 16 ALT 13 Alkaline Phosphatase 93 C-React Prot High Sens Total Protein 8.3 Albumin 4.0 Globulin 4.3 Vitamin B12 Folate Procalcitonin 08/13/19 08/13/19 08/13/19 16:02 16:02 18:59 WBC RBC Hgb Hct MCV MCH MCHC RDW Plt Count MPV Neut % (Auto) Lymph % (Auto) [place] % (Auto) Eos % (Auto) Baso % (Auto) Neut # (Auto) Lymph # (Auto) [place] # (Auto) Eos # (Auto) Baso # (Auto) Nucleated RBC % (auto) Nucleated RBCs # D-Dimer Sodium Potassium Chloride Carbon Dioxide Anion Gap BUN Creatinine GFR Calculation Glucose Calculated Osmolality Lactic Acid 2.8 H Lactic Acid (Sepsis) 1.0 Calcium Iron TIBC % Saturation Unsat Iron Binding Total Bilirubin AST ALT Alkaline Phosphatase C-React Prot High Sens Total Protein Albumin Globulin Vitamin B12 Folate Procalcitonin 0.13 08/14/19 08/14/19 08/14/19 05:20 05:20 05:20 WBC 14.3 H RBC 3.57 L Hgb 9.7 L Hct 31.9 L MCV 89.4 MCH 27.2 L MCHC 30.4 RDW 13.6 Plt Count 349 MPV 9.6 Neut % (Auto) 72.3 Lymph % (Auto) 16.4 [place] % (Auto) 6.9 Eos % (Auto) 3.2 Baso % (Auto) 0.6 Neut # (Auto) 10.3 H Lymph # (Auto) 2.3 [place] # (Auto) 1.0 H Eos # (Auto) 0.5 Baso # (Auto) 0.1 Nucleated RBC % (auto) 0 Nucleated RBCs # 0.0 D-Dimer Sodium 142 Potassium 4.0 Chloride 110 H Carbon Dioxide 21 L Anion Gap 15.0 BUN 16 Creatinine 1.2 GFR Calculation 59.9 L Glucose 92 Calculated Osmolality 290 Lactic Acid Lactic Acid (Sepsis) Calcium 8.5 Iron TIBC % Saturation Unsat Iron Binding Total Bilirubin AST ALT Alkaline Phosphatase C-React Prot High Sens 6.200 H Total Protein Albumin Globulin Vitamin B12 Folate Procalcitonin 0.55 H 08/14/19 08/14/19 08/14/19 05:20 05:20 05:20 WBC RBC Hgb Hct MCV MCH MCHC RDW Plt Count MPV Neut % (Auto) Lymph % (Auto) [place] % (Auto) Eos % (Auto) Baso % (Auto) Neut # (Auto) Lymph # (Auto) [place] # (Auto) Eos # (Auto) Baso # (Auto) Nucleated RBC % (auto) Nucleated RBCs # D-Dimer Sodium Potassium Chloride Carbon Dioxide Anion Gap BUN Creatinine GFR Calculation Glucose Calculated Osmolality Lactic Acid Lactic Acid (Sepsis) 0.5 Calcium Iron 55 L TIBC 195 % Saturation 28.2 Unsat Iron Binding 140 Total Bilirubin AST ALT Alkaline Phosphatase C-React Prot High Sens Total Protein Albumin Globulin Vitamin B12 708 Folate 16.1 Procalcitonin 08/15/19 08/15/19 03:44 03:44 WBC 13.0 H RBC 3.52 L Hgb 9.6 L Hct 34.2 L MCV 97.2 H D MCH 27.3 L MCHC 28.1 L D RDW 13.5 Plt Count 286 MPV 9.9 Neut % (Auto) 69.8 Lymph % (Auto) 18.8 [place] % (Auto) 6.5 Eos % (Auto) 4.0 Baso % (Auto) 0.6 Neut # (Auto) 9.1 H Lymph # (Auto) 2.4 [place] # (Auto) 0.9 Eos # (Auto) 0.5 Baso # (Auto) 0.1 Nucleated RBC % (auto) 0 Nucleated RBCs # 0.0 D-Dimer Sodium 138 Potassium 3.5 Chloride 106 Carbon Dioxide 20 L Anion Gap 15.5 BUN 10 Creatinine 1.0 GFR Calculation 73.9 L Glucose 92 Calculated Osmolality 282 L Lactic Acid Lactic Acid (Sepsis) Calcium 8.6 Iron TIBC % Saturation Unsat Iron Binding Total Bilirubin 0.2 AST 15 ALT 10 Alkaline Phosphatase 68 C-React Prot High Sens 6.120 H Total Protein 6.9 Albumin 3.1 L Globulin 3.8 Vitamin B12 Folate Procalcitonin Micro: Microbiology 08/13/19 21:57 Blood Culture - Preliminary Blood NEGATIVE TO DATE 08/13/19 18:02 Blood Culture - Preliminary Blood NEGATIVE TO DATE Cardiac Studies: No Data to Display
[2019-08-15] MEDS: sodium chloride 0.9% 1,000 ML 30 ML IV (07:50)
--- NOTE | 2019-08-15 09:50 | PC.CHAP ---
Pastoral Care Encounter/Spiritual Assessment Type of Contact [] Declined pricing actuary visit [] Patient/Family/Request visit [] Outpatient visit [] Follow-up visit [] Physician referral [] Code/Alert []x Routine visit [] Staff referral [] Actively dying [] Patient sleeping [] Family support [] [x] Out of room [] Palliative care [] [] Receiving care in room [] Pre-surgical visit [] Trauma [] Long length of stay [] ICU visit [] Other: Relational/Emotional Strength [] Patient feels connected with others/family/visitors/staff [] Distress [] Loneliness/isolation [] Abandonment Spirituality of Patient [] Person of Maru [] Attends Tenriism of their Maru [] Believes in Prayer [] Reads Bible or Episcopalian materials [] There are Spiritual issues to be addressed Airworthiness Safety Inspector Interventions [] Prayer [] Active listening [] Non-anxious presence [] Spiritual/emotional support [] Crisis/trauma care [] Spiritual counseling [] Bereavement support [] Provided bereavement packet [] Provided Bible/devotional materials [] Provided toy/stuffed animal, coloring book to patient or family member [] Provided Communion [] Anointing/[place] [] Salvation [x] Completed spiritual assessment [] Other: Impact on Illness or Injury [] Angry [] Fearful [] Anxious [] Often cries [] Exhaustion [] Unable to work [] Unable to attend holiness [] Unable to walk/stand [] Unable to read [] Unable to drive [] Unable to eat/drink [] Unable to sleep [] Unable to be with family [] Patient intubated [] Other: Summary Patient not present Out for testing Time spent with patient
[2019-08-15] MEDS: lidocaine 1% INJ 20 mL 3 ML XX (10:04)
--- NOTE | 2019-08-15 10:53 | PM.OP ---
Operative Report Date of procedure: August 15, 2019 Pre-op Diagnosis: Right upper lobe lung mass suspicion for lung malignancy Post-op diagnosis: same Brief History: 69-year-old gentleman came into the hospital with 2 weeks history of hemoptysis. On chest CT scan was found to have right upper lobe cavitary lesion. Procedure: Name of the procedure: Bronchoscopy with inspection of the airway, endobronchial biopsies, bronchoalveolar lavage, Cytobrush, endobronchial ultrasound-guided transbronchial aspiration of lymph nodes, control of bleeding. Indication: Right upper lobe cavitary lung mass suspicious for lung malignancy Anesthesia: General anesthesia. Local anesthesia: The magaly in the right and left mainstem bronchi were anesthetized with 1% lidocaine, 3 mL. Description of the procedure: The procedure was explained to the patient and the consent was obtained. The patient was brought to the OR. The patient underwent endotracheal intubation for general anesthesia. Following induction of general anesthesia, the bronchoscope was advanced through the ET tube. The lower trachea appeared to be normal. The magaly was sharp. The magaly, the right and left mainstem bronchi are anesthetized with 1% lidocaine. In a systematic manner bilateral bronchial tree was then examined. The bronchoscope was advanced into the left mainstem bronchus. The left upper lobe, lingula and left lower lobe bronchi were examined up to the third subsegmental level and no abnormalities were identified. There is no endobronchial lesion, active bleeding or mucous plug. The bronchoscope was then introduced into the right mainstem bronchus. Submucosal involvement was seen in the right mainstem bronchus. There was significant submucosal spread of the cancer with narrowing of the right upper lobe bronchus. There is also distortion of the airway. The bronchus could not be passed through the right upper lobe bronchus to examine the mental and subsegmental bronchi. The right upper lobe bronchus was very friable and bled easily to touch. The right bronchus intermedius appeared to have narrowing secondary to submucosal involvement. The orifice of the right middle lobe bronchus was narrow and could not be traversed. There was involvement of the submucosal area of the right lower lobe bronchus as well. Bronchoalveolar lavage was performed from the right upper lobe. 60 mL of saline was instilled, 10 mL of bloody fluid returned. Endobronchial biopsies were performed from the right secondary magaly, right mainstem bronchus 1 cm from the magaly, and right bronchus intermedius. Specimens were sent in different containers. The endobronchial ultrasound was introduced through the ET tube. Mediastinal and hilar lymphadenopathy was identified with the ultrasound. Transbronchial needle aspiration was performed from right hilar mass, station 7 and 4R. Samples: 1. Bronchoalveolar lavage specimen was sent for Gram stain and culture, fungal stain and culture, AFB stain and culture, and cytology. 2. The endobronchial biopsies are sent for histopathology. 3. The transbronchial needle aspiration of the aforementioned lymph node groups were sent for cytology. Complications: There was no immediate complications. The patient was extubated and brought to the PACU in stable condition. Follow-up: 1. Please have the patient follow-up with me in clinic in 2 weeks.
--- NOTE | 2019-08-15 11:19 | SUR.PHASEI ---
1116- DR RIDLEY AT THE BEDSIDE, MEDICATION ADMINISTERED PER ANESTHESIA
--- NOTE | 2019-08-15 11:45 | PC.NURSE ---
Back From surgery post bronchoscopy Received pt from PACU. Pt is Alert, awake, oriented. Gag reflex present. Not in respiratory distress. Denies any pain. Afebrile. Vital signs post surgery monitored.
[2019-08-15] MEDS: acetaminophen 325 mg Tablet 650 MG PO (13:42)
--- NOTE | 2019-08-15 14:38 | PM.DCS ---
Discharge Providers Date of Admission: 08/13/19 18:01 Date of Discharge: August 15, 2019 Attending Provider at Admission: Silverio Sapin MD Attending Provider at Discharge: Silverio Spain MD Primary Care Provider: Silverio Spain MD Diagnoses at Discharge Discharge Diagnosis (1) Lung mass: Status: Acute (2) Pneumonia: Status: Acute Qualifiers: Laterality: right Lung location: upper lobe of lung Pneumonia type: due to unspecified organism Qualified Code(s): J18.9 - Pneumonia, unspecified organism (3) Major depressive disorder, recurrent severe without psychotic features: Status: Acute (4) Anemia, iron deficiency: Status: Acute (5) BPH with obstruction/lower urinary tract symptoms: Status: Acute Reason for Visit Reason for Visit: Reason For Visit: COUGHING UP BLOOD Hospital Course Hospital Course: The patient was admitted to the hospital with new findings of a lung mass in the right upper lobe. He was coughing up small amounts of blood for approximately 2 weeks prior to presentation. The patient was found to have a postobstructive pneumonia and was placed on Zosyn and Levaquin. He was given IV fluids. Symptomatically the patient improved rapidly and there are signs that his pneumonia is improving. For this he will be discharged home on Levaquin for the next 7 days. The patient had a bronchoscopy done on 08/15/2019 and biopsies were taken. Please see the bronchoscopy note for full details. It did appear to be cancerous especially in the right upper lobe and possibly middle and lower lobe. Biopsies were taken and results will be discussed with the patient by Dr. Wong. Referral to oncology will be made at that time if needed. The patient was found to have anemia and had low iron levels. He will be discharged home with iron twice a day. The patient also noted that he is having troubles with emptying his bladder well and we will start him on Flomax for treatment. Overall the patient is feeling better compared to when he presented and we will follow-up with the above findings as an outpatient. Physical Exam Narrative: EXAM NARRATIVE: General: Alert and oriented x3 Cardiac: Regular rhythm with mild tachycardia without murmurs Lungs: Decreased air entry bilaterally. Scattered rhonchi. Mildly decreased air entry in the right upper lung. No significant wheezes or crackles at this time. Abdomen: Soft, nontender, no hepatosplenomegaly noted Extremities: No edema Discharge Data Data Completed and Pending: Completed Studies During Hospitalization Category Date Time Status CT angio chest PE protcl 92477 Urge nt Cat Scan 08/13/19 15:59 Completed Pending at discharge Category Date Time Status Blood Culture Sta t Lab 08/13/19 21:57 Results Bronch Washing Cu lture & GS Routine Lab 08/15/19 10:05 Received Fungal Culture no t HR/SK/BL Routine Lab 08/15/19 10:05 Received Mycobacteria, Cul ture w/Fluor Routi ne Lab 08/15/19 10:05 Received Sputum Culture an d Gram Stain Routi ne Lab 08/13/19 20:17 Uncollected Cytology [PTH] Ro utine Pth 08/15/19 10:18 Received Cytology [PTH] Ro utine Pth 08/15/19 10:19 Received Cytology [PTH] Ro utine Pth 08/15/19 10:20 Received Cytology [PTH] Ro utine Pth 08/15/19 10:24 Received Cytology [PTH] Ro utine Pth 08/15/19 10:29 Received Cytology [PTH] Ro utine Pth 08/15/19 10:54 Received Cytology [PTH] Ro utine Pth 08/15/19 11:31 Received Pathology: Surgic al [PTH] Routine Pth 08/15/19 10:52 Received Labs from last 24 hours 08/15/19 08/15/19 03:44 03:44 WBC 13.0 H RBC 3.52 L Hgb 9.6 L Hct 34.2 L MCV 97.2 H D MCH 27.3 L MCHC 28.1 L D RDW 13.5 Plt Count 286 MPV 9.9 Neut % (Auto) 69.8 Lymph % (Auto) 18.8 Lipscomb % (Auto) 6.5 Eos % (Auto) 4.0 Baso % (Auto) 0.6 Neut # (Auto) 9.1 H Lymph # (Auto) 2.4 Lipscomb # (Auto) 0.9 Eos # (Auto) 0.5 Baso # (Auto) 0.1 Nucleated RBC % (a uto) 0 Nucleated RBCs # 0.0 Sodium 138 Potassium 3.5 Chloride 106 Carbon Dioxide 20 L Anion Gap 15.5 BUN 10 Creatinine 1.0 GFR Calculation 73.9 L Glucose 92 Calculated Osmolal ity 282 L Calcium 8.6 Total Bilirubin 0.2 AST 15 ALT 10 Alkaline Phosphata se 68 C-React Prot High Sens 6.120 H Total Protein 6.9 Albumin 3.1 L Globulin 3.8 Vitals: Last Vital Signs Temp 96.7 F L 08/15/19 12:00 Pulse 104 H 08/15/19 12:45 Resp 19 H 08/15/19 12:45 BP 133/82 08/15/19 12:45 Pulse Ox 96 08/15/19 12:45 Discharge Plan Discharge Patient Disposition: Home, Self-Care Condition: Stable Prescriptions: New levofloxacin 500 mg tablet 500 mg PO DAILY 7 Days Qty: 7 RF: 0 tamsulosin 0.4 mg capsule 0.4 mg PO .qhs Qty: 30 RF: 0 ferrous sulfate 325 mg (65 mg iron) tablet 325 mg PO BID Qty: 60 RF: 2 Continued alprazolam [Xanax] 0.5 mg tablet 0.5 mg PO BID PRN (Reason: anxiety) Qty: 60 RF: 1 Multiple Vitamins Tablet 1 tab PO DAILY RF: 0 Zoloft 100 mg tablet 200 mg PO DAILY RF: 0 Zyprexa 15 mg tablet 15 mg PO BEDTIME RF: 0 Discharge Orders: Discharge Order (Routine); Ordered 08/15/19 Ordered By: Silverio Spain Referrals: Kirby Wong MD [Physician] - 2 weeks Silverio Spain MD [Primary Care Provider] - 4-7 days Discharge Diet: Regular Discharge Activity: Resume usual activity Activity Restrictions/Additional Instructions: If you begin coughing up a significant amount of blood or have further difficulty breathing, or if fevers restart, please return to the emergency department. Please call [facility] for an appointment next week. Discharge Attestations Time Spent in Discharge Care*: less than 30 min Quality Metrics Clinical Quality Measures During this hospital stay, did patient experience: None Coding Level of Care Code Acute Senior Training Specialist for Chg Fwd Diagnoses Lung mass R91.8 Pneumonia J18.9 Laterality: right Lung location: upper lobe of lung Pneumonia type: due to unspecified organism Major depressive disorder, recurrent severe without psychotic features F33.2 Anemia, iron deficiency D50.9 BPH with obstruction/lower urinary tract symptoms N40.1; N13.8
--- NOTE | 2019-08-15 16:40 | PC.NURSE ---
Discharge to home Instructed pt to follow-up with his PCP on Sunday for a follow-up schedule. Informed pt on follow-up schedule with his nurse care manager. Educaated pt on nathaniel meds dosing, timing, frequency/duration and side effects. 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 Discharge papers provided to pt.
--- NOTE | 2019-08-19 14:28 | PC.NURSE ---
Postive blood cultures Dr. Spain notified of 1 of 4 bottles positive blood cultures with gram positive cocci.
== END 2019-08-15 17:09 | disposition home or self-care (01) | DRG 194 ==
LOC: ER 17:31 → MEDSURG 18:41
PROVIDERS: Internal Medicine Critical Care Medicine; Admitting Provider Family Medicine; Emergency Provider Family Medicine; Family Provider Family Medicine; PCP Family Medicine; Visit Provider Family Medicine
PROC: BB4BZZZ Ultrasonography of Pleura (ICD-10-PCS; principal; 2019-08-15 08:10)
DX: J18.9 Pneumonia, unspecified organism (principal); F33.2 Major depressive disorder, recurrent severe without psychotic features; R91.8 Other nonspecific abnormal finding of lung field; F41.1 Generalized anxiety disorder; F17.210 Nicotine dependence, cigarettes, uncomplicated; D50.0 Iron deficiency anemia secondary to blood loss (chronic)
CPT/HCPCS: 12345; 36415; 71275; 80048; 80053; 82607; 82746; 83540; 83550; 83605; 84145; 85025; 85378; 86141; 87040; 87070; 87102; 87205; 87206; 88112; 88173; 88305; 88341; 88342; 93005; 94664; 96372; 96375; 99283; J0696; J1644; J1956; J2001; J2250; J2370; J2405; J2543; J2704; J3010; J3490; J7030; J7040; Q9967

== ENCOUNTER → 2019-08-20 08:35 | Outpatient (BNVA) | payer MEDICARE, MEDICAID, SELFPAY | PROVIDERS: Family Provider Family Medicine; PCP Family Medicine; Visit Provider Nurse Practitioner | DX: F33.2 Major depressive disorder, recurrent severe without psychotic features (principal); F50.01 Anorexia nervosa, restricting type; F41.1 Generalized anxiety disorder | CPT/HCPCS: 99213 ==

== ENCOUNTER 2019-08-28 12:26 | Emergency (ER) | payer MEDICARE, MEDICAID, SELFPAY ==
[2019-08-28 12:31] VITALS: BP 130/83; PULSE 116; RESP 18; TEMP 36.8; O2SAT 98; BMI 21.1
--- NOTE | 2019-08-28 12:50 | XR_ITS ---
WS: [id number] PORTABLE CHEST HISTORY: short of breath, h/o lung cancer COMPARISON: 08/13/2019 Volume loss of the RIGHT lung due to obstructive neoplastic process in the RIGHT upper lung field. De creased in amount of postobstructive pneumonia. There is continued soft tissue thickening at the brandon r region. LEFT lung is clear. No pleural effusion or pneumothorax. Cardiac size: Normal. Mediastinum/Aorta: Increased soft tissue in the RIGHT paratracheal and RIGHT hilar region from the kn own neoplastic process. No osseous abnormality seen. XR/XR chest 1V portable [id number] IMPRESSION: 1. Known RIGHT upper lobe neoplasm with postobstructive pneumonia. Slight impr ovement in aeration since 08/13/2019. 2. No new pneumonia.
--- NOTE | 2019-08-28 12:52 | ED_ITS ---
HPI - Weakness General: Chief complaint: Weakness Stated complaint: abnormal hr Time Seen by Provider: 08/28/19 12:42 History of Present Illness: HPI Narrative: Patient reports that he has been lightheaded with standing since being discharge from the hospital a few weeks ago. he was admitted with a lung mass and post obstructive pneumonia. He was found to have lung cancer. He has a history of anxiety and depression - has no history of prior lung or heart problems. He notes that his heart rate has been high and thinks his BP was low at home. He was started on flomax for urinary issues and iron for anemia while in the hospital. he thinks he was also started on another new med but isn't sure what it is for. He has been having hemopytsis - that was the presentation of his lung mass - and that still happens occasionally. He has not started any treatment for the lung cancer. Dr. Spain is his PCP. MD Complaint: generalized weakness and lack of energy Onset (ago): week(s) (2) Duration: constant Location: generalized Severity: severe Exacerbating factors: movement and exertion Context: new medication, recent illness and depression Associated symptoms: Reports decreased appetite and short of breath; Denies chest pain, dysuria, fever(s) or myalgias Review of Systems General: Reports: 10 or more systems reviewed and unremarkable except in HPI and below Const: Denies: fever(s) Card: Denies: chest pain : Denies: dysuria [facility] ED PFSH: Medical History Anorexia nervosa, restricting type Closed left clavicular fracture Generalized anxiety disorder Surgical History H/O neck surgery Hx of cholecystectomy Social History Smoking and tobacco status: former smoker Alcohol intake: former Lives independently: Yes Household members: children Current occupational status: disabled History of recent travel: No Current gender identity: Male Physical Exam Const: COMMON NORMALS: no acute distress, average body habitus and alert GENERAL APPEARANCE: cooperative, well kempt and anxious HENMT: COMMON NORMALS: atraumatic HEAD & SCALP: atraumatic FACE & SINUS: normal facial exam Eye: COMMON NORMALS: Equal, round and reactive pupils present and EOMs intact bilaterally PUPIL: Yes Equal, round and reactive pupils present Neck/C-Spine: COMMON NORMALS: full ROM, no lymphadenopathy and supple Resp: COMMON NORMALS: normal respiratory effort and No use of accessory muscles AUSCULTATION: rhonchi (mild, greater on the right) throughout Cardio: COMMON NORMALS: regular rhythm, No gallops present (Cardio) and No murmurs present (Cardio) RATE: tachycardic RHYTHM: regular rhythm Neuro: SENSORIUM/ORIENTATION: Yes alert Psych: COMMON NORMALS: mental status grossly normal, Normal thought process present, cooperative, normal affect, speech normal and activity/motor behavior normal APPEARANCE: Yes well kempt ATTITUDE: Yes calm ACTIVITY/MOTOR BEHAVIOR: Yes appropriate eye contact SPEECH: Yes normal speech THOUGHT PROCESS: Normal thought process present INSIGHT: Good insight present (Psych) JUDGEMENT: Good judgement present (Psych) Course ED course: CXR with some evidence of pneumonia, but improved from prior. WBC elevated. Hgb improving. Sats fine, and HR improved with resting and a small amount of fluids. Discussed with Dr. Spain - will restart levaquin but patient looks well enough to go home. He will follow with Dr. Spain - he will return to the ED if worsening in any way. Consultations: Consultation #1: Dr. Spain Vital Signs: Vital signs: Vital Signs Temperature 98.2 F 08/28/19 12:31 Pulse Rate 96 08/28/19 17:13 Respiratory Rate 18 08/28/19 17:13 Blood Pressure 146/86 08/28/19 17:13 Pulse Oximetry 94 08/28/19 17:13 MDM - Weakness Lab Data: Labs: Lab Results 08/28/19 08/28/19 08/28/19 Range/Units 13:03 13:03 13:03 WBC 20.3 H (4.0-10.0) 10^3/ uL RBC 3.90 L (4.1-5.3) 10^6/u L Hgb 10.5 L (11.7-16.6) g/dL Hct 34.1 L (42.0-52.0) % MCV 87.4 (80-94) fL MCH 26.9 L (28.0-34.0) pg MCHC 30.8 (30.0-36.0) g/dL RDW 14.4 (12.1-15.1) % Plt Count 411 H (130-400) 10^3/c mm MPV 9.4 (7.4-10.4) fL Neut % (Auto) 84.6 % Lymph % (Auto) 9.4 % Erath % (Auto) 4.8 % Eos % (Auto) 0.4 % Baso % (Auto) 0.3 % Neut # (Auto) 17.1 H (1.8-7.7) 10^3/u L Lymph # (Auto) 1.9 (0.8-4.8) 10^3/u L Erath # (Auto) 1.0 H (0.2-0.9) 10^3/u L Eos # (Auto) 0.1 (0.0-0.8) 10^3/u L Baso # (Auto) 0.1 (0.0-0.1) 10^3/u L Nucleated RBC % (a uto) 0 % Nucleated RBCs # 0.0 /100WBC Sodium 136 (136-145) mmol/L Potassium 3.9 (3.5-5.1) mmol/L Chloride 98 (98-107) mmol/L Carbon Dioxide 24 (22-29) mmol/L Anion Gap 17.9 (5-19) BUN 14 (8-23) mg/dL Creatinine 1.0 (0.7-1.2) mg/dL GFR Calculation 73.9 L (90-130) mL/min Glucose 200 H (65-115) mg/dL Calculated Osmolal ity 284 L (285-295) mOsm/k g Lactate 1.7 (0.5-2.2) mmol/L Calcium 9.1 (8.5-10.5) mg/dL Total Bilirubin 0.2 (0.15-1.2) mg/dL AST 22 (0-40) U/L ALT 22 (0-41) U/L Alkaline Phosphata se 102 (40-130) IU/L Total Protein 7.6 (6.6-8.7) g/dL Albumin 3.8 (3.5-5.2) g/dL Globulin 3.8 (1.3-4.6) g/dL EKG Data^: EKG 1: EKG interpretation date: 08/28/19 EKG interpretation time: 17:01 Interpretation: sinus rhythm 98, normal intervals, no ischemic changes, normal axis. Discharge Plan Discharge Patient Disposition: Home, Self-Care Clinical Impression: Lung mass Pneumonia Qualifiers: Pneumonia type: due to unspecified organism Laterality: right Lung location: upper lobe of lung Qualified Code(s): J18.9 - Pneumonia, unspecified organism Condition: Stable Prescriptions: New levofloxacin 500 mg tablet 500 mg PO DAILY 5 Days Qty: 5 RF: 0 No Action Zoloft 100 mg tablet 200 mg PO DAILY Qty: 30 RF: 2 Zyprexa 15 mg tablet 15 mg PO BEDTIME Qty: 30 RF: 2 alprazolam [Xanax] 0.5 mg tablet 0.5 mg PO BID PRN (Reason: anxiety) Qty: 60 RF: 1 multivitamin [Multiple Vitamins] Tablet 1 tab PO DAILY RF: 0 tamsulosin 0.4 mg capsule 0.4 mg PO .qhs Qty: 30 RF: 0 ferrous sulfate 325 mg (65 mg iron) tablet 325 mg PO BID Qty: 60 RF: 2 ibuprofen 800 mg Tablet 800 mg PO Q6H PRN (Reason: PAIN/HEADACHE) RF: 0 metoprolol tartrate 25 mg tablet 12.5 mg PO BID RF: 0 Discharge Orders: Discharge Order (Routine); Ordered 08/28/19 Ordered By: Apoorva Chua Referrals: Silverio Spain MD [Primary Care Provider] - 4-7 days Discharge Diet: Usual diet Discharge Activity: Resume usual activity Patient Instructions: Pneumonia (ED) Activity Restrictions/Additional Instructions: Return to the ED if worse in any way including fever, cough, trouble breathing. Discharge Date/Time: 08/28/19 17:13 Coding Level of Care Code ED Bobbin Collector for Chg Fwd Exam Detailed
[2019-08-28 13:16] LABS: Basophils # 0.1 10^3/uL (0.0-0.1); Basophils % 0.3 %; Eosinophils # 0.1 10^3/uL (0.0-0.8); Eosinophils % 0.4 %; Hematocrit 34.1 % (42.0-52.0); Hemoglobin 10.5 g/dL (11.7-16.6); Lymphocytes # 1.9 10^3/uL (0.8-4.8); Lymphocytes % 9.4 %; Mean Corpuscular HGB Conc 30.8 g/dL (30.0-36.0); Mean Corpuscular Hemoglobin 26.9 pg (28.0-34.0); Mean Corpuscular Volume 87.4 fL (80-94); Mean Platelet Volume 9.4 fL (7.4-10.4); Monocytes % 4.8 %; Neutrophils # 17.1 10^3/uL (1.8-7.7); Neutrophils % 84.6 %; Nucleated Red Blood Cells % 0 %; Platelet Count 411 10^3/cmm (130-400); Red Cell Distribution Width 14.4 % (12.1-15.1); White Blood Count 20.3 10^3/uL (4.0-10.0)
[2019-08-28 13:26] VITALS: BP 112/75; PULSE 98; RESP 16; O2SAT 98
[2019-08-28] MEDS: sodium chloride 0.9% 500 ML IV (13:26)
[2019-08-28 13:29] LABS: Lactate (Lactic Acid level) 1.7 mmol/L (0.5-2.2)
[2019-08-28 14:33] VITALS: BP 124/80; PULSE 94; RESP 14; O2SAT 98
[2019-08-28 15:53] LABS: Alanine Aminotransferase 22 U/L (0-41); Albumin Level 3.8 g/dL (3.5-5.2); Alkaline Phosphatase 102 IU/L (40-130); Anion Gap 17.9 (5-19); Aspartate Amino Transferase 22 U/L (0-40); Blood Urea Nitrogen 14 mg/dL (8-23); Calcium 9.1 mg/dL (8.5-10.5); Carbon Dioxide 24 mmol/L (22-29); Chloride 98 mmol/L (98-107); Globulin 3.8 g/dL (1.3-4.6); Glomerular Filtration Rate 73.9 mL/min (90-130); Glucose 200 mg/dL (65-115); Osmolality Calculated 284 mOsm/kg (285-295); Potassium 3.9 mmol/L (3.5-5.1); Sodium 136 mmol/L (136-145); Total Bilirubin 0.2 mg/dL (0.15-1.2); Total Protein 7.6 g/dL (6.6-8.7)
--- NOTE | 2019-08-28 16:21 | ECG_ITS ---
Measurements Intervals Allison Rate: 98 P: 73 WV: 149 QRS: 54 QRSD: 75 T: 63 QT: 328 QTc: 419 SINUS RHYTHM WITH OCCASIONAL SUPRAVENTRICULAR PREMATURE COMPLEXES POSSIBLE LEFT ATRIAL ENLARGEMENT [-0.1mV P WAVE IN V1/V2] Compared to ECG 08/13/2019 15:54:03 Sinus tachycardia no longer present Electronically Signed On 08-29-2019 13:03:11 CDT by Sekou Salinas M.D. [id number]
[2019-08-28 17:13] VITALS: BP 146/86; PULSE 96; RESP 18; O2SAT 94
== END 2019-08-28 17:13 | disposition home or self-care (01) ==
PROVIDERS: Emergency Provider Emergency Medicine; PCP Family Medicine
DX: J18.9 Pneumonia, unspecified organism (principal); J98.4 Other disorders of lung; Z87.891 Personal history of nicotine dependence
CPT/HCPCS: 12345; 71045; 80053; 83605; 85025; 93005; 99282; J7040

== ENCOUNTER 2019-09-02 14:40 | Outpatient (CLI) | payer MEDICARE, MEDICAID, SELFPAY ==
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
--- NOTE | 2019-09-02 20:17 | ONC CON_ITS ---
Dr. Sibley New Patient Note Patient: Chalino Jeffrey < Unit #: [id number]: 1950 Dicatated By: Samia Sibley M.D.Date of Visit: September 02, 2019 Onc MED New Patient/Consult Referring Physician: Dr. LUZ BURNS M.D. History of Present Illness: Mr. Chalino Jeffrey, is a 69-year-old gentleman with history of hemoptysis, initially noticed in mid July 2019,, it was progressive in nature, as per patient he went to hospital and on 08/13/[address] angiogram which showed no pulmonary emboli but 6.2 x 3.9 x 4.8 cm right superior hilar/upper lobe mass with obstruction of right upper lobe bronchus with postobstructive pneumonia/atelectasis and also volume. Moderate mediastinal and right hilar metastatic adenopathy and probable pleural-based metastasis over the right upper lung field. Moderate centrilobular emphysema. Patient was referred to pulmonology and underwent bronchoscopy on 08/15/2019 biopsy was obtained from the mediastinal lymph nodes and right hilar mass and bronchial washing all confirmed non-small cell lung cancer with immunophenotype consistent with squamous cell carcinoma. Patient decided to go to [facility] far evaluation and management, as per patient he was informed that he has stage IIIB disease so he is not a candidate for surgery so chemoradiation was recommended but prior to that staging workup with CT PET scan and MRI scan of the head was recommended. Patient decided to come back to [place] for further workup and management. Patient still complaining of mild hemoptysis especially with cough otherwise no fever or chills, no nausea or vomiting, no chest pain, no headaches or blurred vision or double vision. No jaundice, no bony pains, appetite is good. Patient also recently diagnosed with persistent tachycardia etiology unknown Patient has history of heavy smoking the past but quit in 2015 since then he was smoking e-cigarette which he quit recently too. Past Medical History: Mr. Jeffrey's medical history consists of anxiety. Past Surgical History: Mr. Fan surgical/procedural history consists of bronchoscopy, cataract excision, cholecystectomy, and neck surgery. Medications: Ferrous Sulfate 1 Tablet (of 325 (65 fe) mg) Oral b.i.d., Flomax 1 Tablet (of 0.4 mg) Capsule Oral daily, Ibuprofen 1 - 2 Capsule (of 200 mg) Oral daily PRN, Metoprolol Tartrate 0.5 Tablet (of 25 mg) Oral b.i.d., Xanax 1 Tablet (of 0.5 mg) Oral b.i.d., Zoloft 2 Tablet (of 100 mg) Oral daily, ZyPREXA 1 Tablet (of 10 mg) Oral daily Allergies: No Known Allergies. Social History: Mr. Jeffrey is . Mr. Jeffrey quit smoking 5 years ago but had smoked for 45 years. He has no history of drinking. Mr. Jeffrey reports the following support systems: lives with spouse, significant other, family, or friends, lives in own house, supportive family/friends willing to assist with needs, and adequate transportation available for expected visits. His diet consists of regular meals. He indicates his activity level as: regular exercise. used vape device daily until 07/2019. Family History: Mr. Jeffrey's mother at age 70: Alzheimer's disease. Mr. Jeffrey's father at age 65. Review Of Symptoms: Constitutional - Complains of lack of appetite, fatigue and change in weight. Denies fever and night sweats, ENMT - Denies dysphagia, Respiratory - Denies cough, dyspnea and pleuritic chest pain, Gastrointestinal - Denies constipation, diarrhea, heartburn / dyspepsia, nausea and vomiting, Genitourinary (M) - Complains of frequency and incontinence. Denies dysuria, hematuria and urgency, Musculoskeletal - Denies bone pain and joint pain, Neurologic - Denies headaches, Psychiatric - Complains of depression and anxiety, Hematologic/Lymphatic - Denies easy bruising, Constitutional - Appetite is poor and weight is slowly decreasing. No fever, chills, hot flashes, or night sweats. Energy level is poor, ENMT - No sinus congestion/drainage. No mouth sores. No sore throat or difficulty swallowing, Hematologic/Lymphatic - No abnormal bruising or bleeding, Respiratory - No shortness of breath. No cough. No pleuritic pain or hemoptysis, Cardiovascular - No angina pain. No palpitations, Gastrointestinal - No nausea or vomiting. No heartburn or acid reflux. No diarrhea or constipation. No blood in the stool or black stools, Genitourinary (M) - No dysuria or hematuria. Positive for urinary frequency. No urgency. Positive for incontinence, Musculoskeletal - No joint or bone pain, Neurologic - No headache or dizziness. No numbness/paresthesias or other focal neurologic symptoms, Psychiatric - Positive for anxiety. Vital Signs: Performed on September 02, 2019 15:59: 67 in, 131.4 lbs, 97.9 F, 122, 18, 123/79 mm(hg), 97 %, 0, Performed on September 02, 2019 15:59: 20.58 kg/m2, and Performed on September 02, 2019 15:04: 1.69 sq.m. Performance Status: 0 - Fully active, able to carry on all predisease activities without restrictions. (ECOG) Physical Examination: ENMT - no mouth sores, no thrush, no jaundice, Respiratory - Lungs are clear , poor air entry, Cardiovascular - Regular rate and rhythm of heart , tachycardia, Abdomen - soft, bowel sounds present, nontender, Extremities - no edema or rash. Lab/Imaging: Most recent lab results are not available for this patient. Impression: squamous cell carcinoma Per bronchoscopy done on 08/15/2019 showed fine-needle aspiration from lymph node, station 7, station 4R, right hilar mass, bronchial brushing right upper lobe, all confirmed squamous cell carcinoma Chest CT angiogram done on 08/13/2019 showed 6.2 x 3.9 x 4.8 cm right suprahilar/upper lobe mass with obstruction of right upper lobe bronchus with postobstructive pneumonia/atelectasis. Moderate mediastinal and right hilar metastatic lymphadenopathy Probable pleural-based metastasis over right upper lung field. No pulmonary embolism. Plan: Discussed with patient regarding his disease status and further workup and possible treatment options. At this point, we'll proceed with CT PET scan and MRI scan of the head to complete stagging workup and in the meantime, we will refer him to radiation oncology for evaluation for progressive hemoptysis. we will also refer him to cardiology for evaluation of persistent tachycardia and also refer him to surgery for Port-A-Cath placement. Patient will return to clinic after CT PET scan and MRI scan done with CBC and CMP and at that time after reviewing CT PET scan and MRI scan had findings, we will make further recommendations e.g. if locoregional disease, we'll consider combined chemoradiation with weekly carboplatin/Taxol, if distant metastatic disease, then will consider palliative radiation therapy to control hemoptysis and to relieve obstruction and also consider next generation sequencing to identify targetable therapy. Signed By: Samia Sibley M.D. <<Signature on File>>
== END 2019-09-02 14:41 | disposition home or self-care (01) ==
LOC: ONCMED 14:41
PROVIDERS: PCP Family Medicine; Visit Provider Internal Medicine Hematology & Oncology
DX: C34.11 Malignant neoplasm of upper lobe, right bronchus or lung (principal); C77.1 Secondary and unspecified malignant neoplasm of intrathoracic lymph nodes; Z87.891 Personal history of nicotine dependence; R00.0 Tachycardia, unspecified
CPT/HCPCS: 99205; G0463

== ENCOUNTER 2019-09-22 08:02 | Outpatient (CLI) | payer MEDICARE, MEDICAID, SELFPAY ==
[2019-09-22 08:57] LABS: Basophils # 0.1 10^3/uL (0.0-0.1); Basophils % 0.6 %; Eosinophils # 0.3 10^3/uL (0.0-0.8); Eosinophils % 1.1 %; Hematocrit 37.9 % (42.0-52.0); Hemoglobin 10.8 g/dL (11.7-16.6); Lymphocytes # 2.1 10^3/uL (0.8-4.8); Lymphocytes % 8.8 %; Mean Corpuscular HGB Conc 28.5 g/dL (30.0-36.0); Mean Corpuscular Hemoglobin 26.4 pg (28.0-34.0); Mean Corpuscular Volume 92.7 fL (80-94); Mean Platelet Volume 9.7 fL (7.4-10.4); Monocytes # 1.4 10^3/uL (0.2-0.9); Monocytes % 5.8 %; Neutrophils # 19.8 10^3/uL (1.8-7.7); Neutrophils % 82.9 %; Nucleated Red Blood Cells % 0 %; Platelet Count 373 10^3/cmm (130-400); Red Blood Count 4.09 10^6/uL (4.1-5.3); Red Cell Distribution Width 14.5 % (12.1-15.1); White Blood Count 23.9 10^3/uL (4.0-10.0)
[2019-09-22 09:51] LABS: Alanine Aminotransferase 19 U/L (0-41); Albumin Level 3.5 g/dL (3.5-5.2); Alkaline Phosphatase 114 IU/L (40-130); Anion Gap 18.3 (5-19); Aspartate Amino Transferase 17 U/L (0-40); Blood Urea Nitrogen 19 mg/dL (8-23); Calcium 10.9 mg/dL (8.5-10.5); Carbon Dioxide 23 mmol/L (22-29); Chloride 97 mmol/L (98-107); Globulin 4.9 g/dL (1.3-4.6); Glomerular Filtration Rate 59.9 mL/min (90-130); Glucose 137 mg/dL (65-115); Osmolality Calculated 277 mOsm/kg (285-295); Potassium 4.3 mmol/L (3.5-5.1); Sodium 134 mmol/L (136-145); Total Bilirubin 0.3 mg/dL (0.15-1.2); Total Protein 8.4 g/dL (6.6-8.7)
[2019-09-22] MEDS: sodium chloride 0.9% 500 ML 999 ML IV (11:15)
[2019-09-22 12:39] LABS: Urine Appearance Clear (CLEAR); Urine Color Yellow (Yellow); pH Urine 5 (5-7)
[2019-09-22 12:40] LABS: Bilirubin Urine Neg (NEGATIVE); Blood Urine Neg (Negative); Glucose Urine UA Norm (Normal); Ketones Urine Negative (Negative); Leukocyte Esterase Urine Negative (Negative); Nitrate Urine Negative (Negative); Protein Urine Neg (Negative); Urobilinogen Urine Neg (Negative)
[2019-09-22 12:46] LABS: RBC Urine RARE /hpf (0-2); WBC Urine 0-4 /hpf (0-5)
[2019-09-22 12:47] LABS: Add Urine Culture? No; Bacteria Urine TRACE; Mucus Urine 1+
--- NOTE | 2019-09-22 15:25 | ONC FU_ITS ---
Dr. Sibley follow up note Patient: Chalino Jeffrey < Unit #: [id number]: 1950 Dicatated By: Samia Sibley M.D.Date of Visit:Sep 22, 2019 Onc Med Follow-up/Prog Note History of Present Illness: Mr. Chalino Jeffrey, is a 69-year-old gentleman with history of hemoptysis, initially noticed in mid July 2019,, it was progressive in nature, as per patient he went to hospital and on 08/13/[address] angiogram which showed no pulmonary emboli but 6.2 x 3.9 x 4.8 cm right superior hilar/upper lobe mass with obstruction of right upper lobe bronchus with postobstructive pneumonia/atelectasis and also volume. Moderate mediastinal and right hilar metastatic adenopathy and probable pleural-based metastasis over the right upper lung field. Moderate centrilobular emphysema. Patient was referred to pulmonology and underwent bronchoscopy on 08/15/2019 biopsy was obtained from the mediastinal lymph nodes and right hilar mass and bronchial washing all confirmed non-small cell lung cancer with immunophenotype consistent with squamous cell carcinoma. Patient decided to go to [facility] far evaluation and management, as per patient he was informed that he has stage IIIB disease so he is not a candidate for surgery so chemoradiation was recommended but prior to that staging workup with CT PET scan and MRI scan of the head was recommended. Patient decided to come back to [place] for further workup and management. Patient still complaining of mild hemoptysis especially with cough otherwise no fever or chills, no nausea or vomiting, no chest pain, no headaches or blurred vision or double vision. No jaundice, no bony pains, appetite is good. Patient also recently diagnosed with persistent tachycardia etiology unknown Patient has history of heavy smoking the past but quit in 2015 since then he was smoking e-cigarette which he quit recently too. Staging CT PET scan done on September 16, 2019 showed large FDG avid anterior right upper lobe mass extending into the mediastinum measuring 7.7 x 6.7 cm. There are few avid mediastinal precarinal and pretracheal nodes the largest of which measures 1.4 cm. There is a left supraclavicular FDG avid 1.2 cm node. There is a weakly avid posterior left upper lobe 8 mm node. There is a posterior basal left upper lobe perifissural 6 mm node that is non-avid. No evidence of distant metastatic disease otherwise below diaphragm. MRI scan of the head done on September 16, 2019 showed no evidence of metastatic disease Came for follow-up, complaining of generalized weakness and fatigue patient said he did not drink or eat anything since midnight, as he was scheduled for Port-A-Cath placement today. Also complaining of off and on hemoptysis. But no fever or chills, no nausea or vomiting but generalized weakness and fatigue and poor appetite. Medications: Ferrous Sulfate 1 Tablet (of 325 (65 fe) mg) Oral b.i.d., Flomax 1 Tablet (of 0.4 mg) Capsule Oral daily, Ibuprofen 1 - 2 Capsule (of 200 mg) Oral daily PRN, Metoprolol Tartrate 0.5 Tablet (of 25 mg) Oral b.i.d., Xanax 1 Tablet (of 0.5 mg) Oral b.i.d., Zoloft 2 Tablet (of 100 mg) Oral daily, ZyPREXA 1 Tablet (of 10 mg) Oral daily Allergies: No Known Allergies. Review of Systems: Constitutional - Appetite is poor and weight is slowly decreasing. No fever, chills, hot flashes, or night sweats. Energy level is poor, ENMT - No sinus congestion/drainage. No mouth sores. No sore throat or difficulty swallowing, Hematologic/Lymphatic - No abnormal bruising or bleeding, Respiratory - No shortness of breath. No cough. No pleuritic pain or hemoptysis, Cardiovascular - No angina pain. No palpitations, Gastrointestinal - No nausea or vomiting. No heartburn or acid reflux. No diarrhea or constipation. No blood in the stool or black stools, Genitourinary (M) - No dysuria or hematuria. Positive for urinary frequency. No urgency. Positive for incontinence, Musculoskeletal - No joint or bone pain, Neurologic - No headache or dizziness. No numbness/paresthesias or other focal neurologic symptoms, Psychiatric - Positive for anxiety. Vital Signs: Performed on Sep 22, 2019 09:28 Height - 67.00 in Weight - 127.0 lbs (LOW) BSA - 1.67 sq.m BMI - 19.89 Temperature - 99.2 F (HIGH) Pulse - 120 /min (HIGH) Respiration - 22 /min BP - 99/57 mm(hg) O2 Sat - 97 % Pain - 0 Performance Status: 1 - No physically strenuous activity, but ambulatory and able to carry out light or sedentary work (e.g. office work, light house work). (ECOG) Physical Examination: ENMT - No mouth sores, no thrush, Respiratory - Lungs are clear, Cardiovascular - Regular rate and rhythm of heart, Abdomen - Soft, bowel sounds present, Extremities - No edema or rash. Lab/Imaging: Test performed on Sep 22, 2019 09:25 Sodium 134 mmol/L Potassium 4.3 mmol/L Chloride 97 mmol/L CO2 23 mmol/L Anion Gap 18.3 BUN 19 mg/dL Creatinine 1.2 mg/dL Cr Clearance (Est) 46.6700 mL/min eGFR 59.9 mL/min Glucose 137 mg/dL Calcium 10.9 mg/dL Protein, Total 8.4 g/dL Albumin 3.5 g/dL Globulin 4.9 g/dL Bilirubin, Total 0.3 mg/dL ALT (SGPT) 19 U/L AST (SGOT) 17 U/L Alkaline Phosphatase 114 IU/L Test performed on Sep 22, 2019 08:14 WBC 23.9 10 3/uL RBC 4.09 10 6/uL HGB 10.8 g/dL HCT 37.9 % MCV 92.7 fL MCH 26.4 pg MCHC 28.5 g/dL RDW 14.5 % Platelet Count 373 10 3/cmm MPV 9.7 fL Neutrophils 19.8 10 3/uL Lymphocytes 2.1 10 3/uL Monocytes 1.4 10 3/uL Eosinophils 0.3 10 3/uL Basophils 0.1 10 3/uL Neutrophil % 82.9 % Lymphocyte % 8.8 % Monocyte % 5.8 % Eosinophil % 1.1 % Basophils % 0.6 % Impression: squamous cell carcinoma Per bronchoscopy done on 08/15/2019 showed fine-needle aspiration from lymph node, station 7, station 4R, right hilar mass, bronchial brushing right upper lobe, all confirmed squamous cell carcinoma Chest CT angiogram done on 08/13/2019 showed 6.2 x 3.9 x 4.8 cm right suprahilar/upper lobe mass with obstruction of right upper lobe bronchus with postobstructive pneumonia/atelectasis. Moderate mediastinal and right hilar metastatic lymphadenopathy Probable pleural-based metastasis over right upper lung field. No pulmonary embolism. Plan: Discussed with patient regarding his labs white blood count 23.9 hemoglobin 10.8 hematocrit 37.9 platelets 373,000 CMP within normal limits except calcium 10.9, follow-up CT PET scan shows right upper lobe mass extending into mediastinum and precarinal and pretracheal lymphadenopathy as well as left supraclavicular lymphadenopathy but MRI scan of the head was unremarkable Clinically, patient is doing reasonably well now with, persistent mild hemoptysis and today with generalized weakness and fatigue and mild hypotension probably due to dehydration as patient did not drink or eat anything since midnight and in fact, since yesterday evening as he is scheduled for Port-A-Cath placement. Case was discussed with Dr. Mann radiation oncology, at this point we will consider further work-up FNA or resection of left supraclavicular lymph node seen on CT PET scan to rule out metastatic disease in the meantime proceed with palliative radiotherapy to the right upper lobe mass causing off-and-on hemoptysis and follow-up labs shows persistent mild to moderate anemia. If left supraclavicular lymph node shows metastatic disease then will let patient finish palliative radiotherapy alone to the right lung mass and request pathology to check PDL 1 status as well as next addition sequencing to identify targetable therapy. Patient will return to clinic after the left supraclavicular lymph node biopsy and Dr. Cowan was also requested to postpone Port-A-Cath placement and to see if left supraclavicular lymph node biopsy as well as Port-A-Cath can be placed on same date. As for generalized weakness fatigue is concerned probably due to poor oral intake due to poor appetite as well as preparation for Port-A-Cath placement this morning. As Port-A-Cath placement has been postponed till left supraclavicular lymph node biopsy, we will give him hydration with normal saline 500 cc, as his blood pressure was 99/60 and patient was somewhat symptomatic and also provide him with some food We will also check a urinalysis and CBC shows leukocytosis but no obvious sign of infection, patient may have postobstructive pneumonitis so we will start him on Levaquin 500 milligrams p.o. daily, patient was advised in case there is a worsening of symptoms or any fever he need to go to hospital immediately otherwise he will see radiation oncology for palliative treatment. Signed By: Samia Sibley M.D. <<Signature on File>>
== END 2019-09-22 08:03 | disposition home or self-care (01) ==
LOC: ONCMED 08:06
PROVIDERS: PCP Family Medicine; Visit Provider Internal Medicine Hematology & Oncology
DX: C34.11 Malignant neoplasm of upper lobe, right bronchus or lung (principal); C77.1 Secondary and unspecified malignant neoplasm of intrathoracic lymph nodes; D72.829 Elevated white blood cell count, unspecified; I95.9 Hypotension, unspecified; R53.83 Other fatigue; R53.1 Weakness; R04.2 Hemoptysis; D64.9 Anemia, unspecified; R63.0 Anorexia; Z68.1 Body mass index [BMI] 19.9 or less, adult
CPT/HCPCS: 36415; 80053; 81001; 85025; 96360; 99214; J7040

== ENCOUNTER → 2019-10-02 15:55 | Outpatient (BNVA) | payer MEDICARE, MEDICAID, SELFPAY | PROVIDERS: PCP Family Medicine; Visit Provider Internal Medicine Cardiovascular Disease | DX: R00.0 Tachycardia, unspecified (principal); R06.02 Shortness of breath; C34.91 Malignant neoplasm of unspecified part of right bronchus or lung | CPT/HCPCS: 84439; 84443 ==

== ENCOUNTER 2019-10-07 06:53 | Outpatient (RCR) | payer MEDICARE, MEDICAID, SELFPAY ==
--- NOTE | 2019-09-29 | CT_ITS ---
Radiation Therapy Planning CT images; total exam DLP: 201.77 mGy-cm MTDD
--- NOTE | 2019-09-29 11:07 | ONCRAD EPV_ITS ---
Radiation Oncology Established Patient Visit Patient: Neris MR#: [id number] : 1950> Age: 69> Sex: Male> Dictated by: Dr. Gino Santana Date of Service: 09/29/2019 Referring Physician(s) : Dr. 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 Chief Complaint / History of Present Illness: Mr. Jeffrey was seen by Dr. Menendez 09/02/2019. He was known to not be a surgical candidate that at that time. It was recommended that he have a PET/CT for staging purposes prior to initiating any treatment. Mr. Jeffrey has had an MRI of the brain and PET/CT. The MRI of the brain is negative for metastatic disease. The PET/CT shows intense uptake in the known primary cancer as well as mediastinal and hilar nodes. He also has a suspicious left supraclavicular node and 2 left lung nodules that are very small, but suspicious for metastatic disease. Mr. Jeffrey saw Dr. Sibley in follow-up. Dr. Sibley discussed the case with Dr. Mann. They decided that it would be appropriate to proceed with either an FNA or resection of the left supraclavicular lymph node seen on PET/CT and to have a Port-A-Cath placed for systemic therapy. In the meantime, it is recommended that palliative radiation be given to the large primary cancer. Mr. Jeffrey does not have severely acute symptoms, but he is experiencing progressive fatigue, worsening appetite, and increased right posterior shoulder and back pain. In addition he continues to have some troublesome cough and mild hemoptysis. Current Medications: Ferrous Sulfate, flomax, ibuprofen, levoFLOXacin, metoprolol Tartrate, xanax, zoloft, zyPREXA. Allergies: No Known Allergies Current Complaints / Review of Systems: Constitutional - Complains of no appetite. Complains of severe fatigue. Complains of change in weight Has lost about 7 lbs. in 2 to 3 months. Denies fever and night sweats. Eyes - Denies blurred vision and double vision. ENMT - Complains of altered taste. Denies dysphagia, ear pain, mouth dryness, stomatitis and tinnitus. Neck - Denies neck pain. Integumentary - Denies rash. Cardiovascular - Complains of arrhythmias associated with during normal activties. Denies chest pain and edema. Respiratory - Complains of a mild cough which is non-productive. Complains of a scant amount of hemoptysis occasionally. Complains of wheezing occasionally. Gastrointestinal - Complains of occasional constipation. Denies abdominal pain, diarrhea, heartburn / dyspepsia, melena / GI bleeding, nausea and vomiting. Genitourinary (M) - Complains of nocturia gets up about 2 to 3 times per night. Denies dysuria, frequency and urgency. Musculoskeletal - Complains of joint pain in the right shoulder and back. Denies bone pain and muscle weakness. Neurologic - Complains of frequent dizziness that occurs upon sitting to standing. Denies headaches and insomnia. Endocrine - Denies diabetes and thyroid disease. Hematologic/Lymphatic - Denies tender or enlarged lymph nodes.. Vital Signs: Performed on 09/29/2019 9:37 AM BMI - 19.797 kg/m2, Height - 67.00 in, Weight - 126.4 lbs, Temperature - 98.5 f, Pulse - 121, Respiration - 20, O2 Sat - 97 %, Pain - 5 and BP - 107/ 75 mm(hg). Physical Exam: General: Alert and oriented x 3. No acute distress. HEENT: Normocephalic, atraumatic. Extraocular Movements Intact: NECK: Supple without supraclavicular or jugular lymphadenopathy. LUNGS: Clear to auscultation bilaterally without rales, rhonchi or wheeze. No dullness to percussion HEART: Regular rate and rhythm, normal S1 and S2 without murmur, gallop or rub. MUSCULOSKELETAL: No tenderness to percussion. Normal gait. ABDOMEN: Soft, nontender, nondistended without masses or organomegaly. Bowell sounds are present and normal. Performance Status: 3 - Capable of only limited self-care, confined to bed or chair more than 50% of waking hours. (ECOG) Lab: None pending. Test performed on 09/22/2019 8:14 AM WBC - 23.9 10 3/ul (high), RBC - 4.09 10 6/ul (low), HGB - 10.8 g/dl (low), HCT - 37.9 % (low), MCH - 26.4 pg (low), MCHC - 28.5 g/dl (low), Neutrophils - 19.8 10 3/ul (high), Monocytes - 1.4 10 3/ul (high), Test performed on 09/22/2019 9:25 AM Sodium - 134 mmol/l (low), Chloride - 97 mmol/l (low), Cr Clearance (Est) - 46.6700 ml/min (low), eGFR - 59.9 ml/min (low), Glucose - 137 mg/dl (high), Calcium - 10.9 mg/dl (high) and Globulin - 4.9 g/dl (high). 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 Imaging: See HPI Impression: Mr. Jeffrey has a locally advanced non-small cell carcinoma of the right lung. His PET scan strongly suggest the possibility of metastatic disease. He is moderately symptomatic from the cancer, experiencing fatigue, decreased appetite, mild weight loss, cough, hemoptysis, and right upper shoulder and back pain. He is a candidate for palliative radiation. I discussed the palliative nature of treatment. I discussed that systemic therapy with either chemotherapy, immunotherapy or combination of the two, is being contemplated. He is aware that a biopsy of the supraclavicular node and placement of Port-A-Cath are planned and that it will be attempted to do those procedures on the same day. I discussed the acute side effects of radiation such as increased fatigue, decreased appetite, increased hemoptysis, and increased cough. Also discussed that a mild skin reaction will probably develop. He would not be expected to have major morbidity from a palliative course of radiation, but I did discuss the small risk of cardiac injury, pulmonary injury, or neurovascular injury. He wishes to proceed with treatment as recommended. Disposition: Simulation will be performed today. Signed by: 09/29/2019 11:05:22 AM <<Signature on File>> Time spent with patient: CPT Code: CPT Code:
--- NOTE | 2019-10-07 11:13 | ONCRAD TMN_ITS ---
Radiation Oncology Weekly Treatment Management Patient: Chalino Jeffrey MR#: [id number] : 1950> Age: 69> Sex: Male Dictated by: Dr. Gino Santana Date of Service: 10/07/2019 Referring Physician(s) : Dr. Sibley Diagnosis: C34.11 - Malignant neoplasm of upper lobe, right bronchus or lung, Diagnosed 09/02/2019 (Active) C77.1 - Secondary and unspecified malignant neoplasm of intrathoracic lymph nodes, Diagnosed 09/02/2019 (Active) Radiotherapy to date: Course: RT Lung 2019, Treatment Site: RT [id number], Ref. ID: [id number], Energy: 15X, Dose/Fx (cGy): 250, #Fx: , Dose Correction (cGy): 0, Total Dose (cGy): 500, Start Date: 10/06/2019, Elapsed Days: 1 Chief Complaint/History of Present Illness: Mr. Jeffrey is seen after 2 treatments. His general condition is a little worse. He is having less appetite and increased fatigue. His cough and occasional hemoptysis persist. Since last night he has been experiencing some nausea. He has not had vomiting. He also has noticed an increased heart rate. He has a history of this but feels there is been no change. Our nurse detected a heart rate of 145. His pulse was 121 when he was seen 615 and I do not recall any remarkable cardiac sounds on listening to his heart. Mr. Chalino Jeffrey, is a 69-year-old gentleman with history of hemoptysis, initially noticed in mid July 2019,, it was progressive in nature, as per patient he went to hospital and on 08/13/[address] angiogram which showed no pulmonary emboli but 6.2 x 3.9 x 4.8 cm right superior hilar/upper lobe mass with obstruction of right upper lobe bronchus with postobstructive pneumonia/atelectasis and also volume. Moderate mediastinal and right hilar metastatic adenopathy and probable pleural-based metastasis over the right upper lung field. Moderate centrilobular emphysema. Patient was referred to pulmonology and underwent bronchoscopy on 08/15/2019 biopsy was obtained from the mediastinal lymph nodes and right hilar mass and bronchial washing all confirmed non-small cell lung cancer with immunophenotype consistent with squamous cell carcinoma. Patient decided to go to [place] far evaluation and management, as per patient he was informed that he has stage IIIB disease so he is not a candidate for surgery so chemoradiation was recommended but prior to that staging workup with CT PET scan and MRI scan of the head was recommended. Patient decided to come back to [place] for further workup and management. Patient still complaining of mild hemoptysis especially with cough otherwise no fever or chills, no nausea or vomiting, no chest pain, no headaches or blurred vision or double vision. No jaundice, no bony pains, appetite is good. Patient also recently diagnosed with persistent tachycardia etiology unknown Patient has history of heavy smoking the past but quit in 2015 since then he was smoking e-cigarette which he quit recently too. Staging CT PET scan done on September 16, 2019 showed large FDG avid anterior right upper lobe mass extending into the mediastinum measuring 7.7 x 6.7 cm. There are few avid mediastinal precarinal and pretracheal nodes the largest of which measures 1.4 cm. There is a left supraclavicular FDG avid 1.2 cm node. There is a weakly avid posterior left upper lobe 8 mm node. There is a posterior basal left upper lobe perifissural 6 mm node that is non-avid. No evidence of distant metastatic disease otherwise below diaphragm. MRI scan of the head done on September 16, 2019 showed no evidence of metastatic disease Came for follow-up, complaining of generalized weakness and fatigue patient said he did not drink or eat anything since midnight, as he was scheduled for Port-A-Cath placement today. Also complaining of off and on hemoptysis. But no fever or chills, no nausea or vomiting but generalized weakness and fatigue and poor appetite. Current Medications: Ferrous Sulfate, flomax, hydrocodone-Acetaminophen, ibuprofen, metoprolol Tartrate, xanax, zoloft, zyPREXA. Allergies: No Known Allergies Current Complaints/Review of Systems: Vital Signs: Physical Exam: Alert, oriented, no distress. He appears chronically ill and appears not to feel well at this time. No cervical or supraclavicular lymphadenopathy. Lungs are clear bilaterally. His heart rhythm is regular but the rate is very rapid, around 150 bpm. Abdomen no distention. No tenderness. No mass or organomegaly. Performance Status: 3 - Capable of only limited self-care, confined to bed or chair more than 50% of waking hours. (ECOG) Lab: None pending in Radiation Oncology. Test performed on 09/22/2019 8:14 AM WBC - 23.9 10 3/ul (high), RBC - 4.09 10 6/ul (low), HGB - 10.8 g/dl (low), HCT - 37.9 % (low), MCH - 26.4 pg (low), MCHC - 28.5 g/dl (low), Neutrophils - 19.8 10 3/ul (high), Monocytes - 1.4 10 3/ul (high), Test performed on 09/22/2019 9:25 AM Sodium - 134 mmol/l (low), Chloride - 97 mmol/l (low), Cr Clearance (Est) - 46.6700 ml/min (low), eGFR - 59.9 ml/min (low), Glucose - 137 mg/dl (high), Calcium - 10.9 mg/dl (high) and Globulin - 4.9 g/dl (high). Imaging: No new diagnostic imaging was performed since the last weekly treatment visit. All radiation therapy related imaging (including but not limited to kV, MV, and CBCT generated images) was reviewed. Appropriate changes, if any, were made to assure accurate target localization. Impression/Plan: Discussed that the nausea is probably not treatment related. We discussed his heart rate. He has had an elevated heart rate in the past but no specific diagnosis has been reached. I told him that I thought he should go to the emergency room. He was in agreement and left the radiation center headed for [facility] ER. CPT: 43144 Signed by: Dr. Sylvester Santana>10/07/2019 11:04:24 AM <<Signature on File>>
== END 2019-10-07 11:30 | disposition home or self-care (01) ==
LOC: ONCMED 06:53
PROVIDERS: PCP Family Medicine; Visit Provider Specialist
DX: Z51.0 Encounter for antineoplastic radiation therapy (principal); C34.11 Malignant neoplasm of upper lobe, right bronchus or lung; C77.1 Secondary and unspecified malignant neoplasm of intrathoracic lymph nodes; R53.83 Other fatigue; R63.0 Anorexia; M25.511 Pain in right shoulder
CPT/HCPCS: 77290; 77295; 77300; 77334; 77387; 77412; 99214

== ENCOUNTER 2019-10-07 11:03 | Emergency (ER) | payer MEDICARE, MEDICAID, SELFPAY ==
[2019-10-07] VITALS (8 sets, daily range): BP systolic 89–131; BP diastolic 65–81; PULSE 107–128; RESP 16–24; TEMP 36.7–37.1; O2SAT 94; BMI 19.7
--- NOTE | 2019-10-07 12:31 | ED_ITS ---
HPI - Weakness General: Chief complaint: Weakness Stated complaint: high hr Time Seen by Provider: 10/07/19 11:58 History of Present Illness: HPI Narrative: 69-year-old male who was recently diagnosed with lung CA has had 2 radiation treatments to the right lung has a large mass that was biopsied via bronchoscopy is a squamous cell CA. He was initially found in the emergency room about 2 months ago. He has been having rapid heart rates and today has been lightheaded and dizzy orthostatic whenever he stands up he gets nauseous he denies any abdominal pain denies any dysuria urgency or frequency has not had any GI or symptoms no signs of GI blood los s. Is not had any hemoptysis or any change in cough. He reports his stools are hard and dark but that is been since he started taking iron. He is not had any dark tarry stools at all. Is also in quite a bit of pain in the right upper lobe of his lung especially with breathing's been generally felt very weak. Although this coincided with the 2 radiation treatments. MD Complaint: generalized weakness and lack of energy Onset (ago): day(s) Duration: constant Location: generalized Migration: none Severity: severe Relieving factors: rest Exacerbating factors: movement and exertion Context: recent illness and other (Radiation for lung CA) Associated symptoms: Reports melena (Secondary to supplemental iron intake), myalgias and nausea; Denies chest pain, chills, dysuria or fever(s) Review of Systems Const: Denies: fever(s), chills, body aches, change in appetite, fatigue or malaise ENMT: Denies: throat pain, ear or mastoid pain, nasal discharge or nasal congestion Card: Denies: chest pain, edema, dyspnea on exertion or orthopnea Resp: Denies: dyspnea, productive cough or non-productive cough GI: Reports: nausea and melena (Secondary to supplemental iron intake) : Denies: flank pain, dysuria, urinary frequency or urinary urgency Skin/Breast: Denies: rash or pruritus PFSH ED PFSH: Medical History Anemia Anorexia nervosa, restricting type Closed left clavicular fracture Generalized anxiety disorder H/O clavicle fracture with hardware Sinus tachycardia An EKG was done today which revealed a sinus tachycardia with a rate of 129 bpm. Poor R wave progression. Possible left atrial enlargement. SOB (shortness of breath) Tachycardia Surgical History H/O neck surgery Hx of cholecystectomy Family History Mother Cancer Bladder Denies family history of Anesthesia complication Bleeding disorder Social History Smoking and tobacco status: former smoker Alcohol intake: former Lives independently: Yes Household members: children Current occupational status: disabled History of recent travel: No Current gender identity: Male Physical Exam Const: COMMON NORMALS: no acute distress GENERAL APPEARANCE: cooperative and comfortable ORIENTATION/CONSCIOUSNESS: Yes awake, Yes oriented to person, Yes oriented to place and Yes oriented to time HENMT: COMMON NORMALS: normocephalic, atraumatic, hearing grossly normal bilaterally, external ears normal, EAC's normal, TM's normal bilaterally, Normal nasal mucous membranes and turbinates present, moist oral mucous membranes and oropharynx normal HEAD & SCALP: normocephalic and atraumatic NOSE: Normal nasal mucous membranes and turbinates present EXTERNAL EAR: Yes external ears normal EXTERNAL AUDITORY CANAL: EAC's normal TYMPANIC MEMBRANE: TM's normal bilaterally Eye: COMMON NORMALS: Equal, round and reactive pupils present, EOMs intact bilaterally, conjunctivae normal and no scleral icterus CONJUNCTIVA: Yes conjunctivae normal PUPIL: Yes Equal, round and reactive pupils present Neck/C-Spine: COMMON NORMALS: full ROM, no lymphadenopathy, supple and no JVD Lymph: LYMPHATIC: no lymphadenopathy noted and no lymphedema noted Resp: COMMON NORMALS: normal respiratory effort, No retractions, No use of accessory muscles and clear to auscultation bilaterally AUSCULTATION: clear to auscultation bilaterally Cardio: COMMON NORMALS: no JVD, regular rate, regular rhythm and No murmurs present (Cardio) RATE: regular rate RHYTHM: regular rhythm GI: COMMON NORMALS: Soft to palpation and No hepatosplenomegaly present AUSCULTATION: Yes normoactive bowel sounds PALPATION: Yes Soft to palpation, No Tenderness to palpation present (GI), No Guarding due to palpation present (GI) and Yes No hepatosplenomegaly present Extremity: COMMON NORMALS: normal to inspection, capillary refill normal, no clubbing, cyanosis or edema, no calf tenderness and no pedal edema Neuro: SENSORIUM/ORIENTATION: Yes oriented to person, Yes oriented to place and Yes oriented to time Skin: COMMON NORMALS: no rashes or lesions noted GENERAL SKIN EXAM: no rashes or lesions noted Course Vital Signs: Vital signs: Vital Signs Temperature 98.0 F 10/07/19 14:55 Pulse Rate 115 H 10/07/19 16:12 Respiratory Rate 18 10/07/19 16:12 Blood Pressure 129/76 10/07/19 16:12 Pulse Oximetry 94 10/07/19 16:12 MDM - Weakness MDM Narrative: Medical decision making narrative: After IV fluids patient is feeling much better is tachycardia is improved he prefer to go home we will go ahead and discharge him home encouraged him to use antiemetics as prescribed for home he states he does have some if he has any worsening problems recheck encourage fluid intake as well Lab Data: Labs: Lab Results 10/07/19 10/07/19 10/07/19 Range/Units 11:24 11:24 13:12 WBC 22.6 H (4.0-10.0) 10^3/ uL RBC 3.84 L (4.1-5.3) 10^6/u L Hgb 9.9 L (11.7-16.6) g/dL Hct 32.9 L (42.0-52.0) % MCV 85.7 (80-94) fL MCH 25.8 L (28.0-34.0) pg MCHC 30.1 (30.0-36.0) g/dL RDW 14.6 (12.1-15.1) % Plt Count 511 H (130-400) 10^3/c mm MPV 9.7 (7.4-10.4) fL Neut % (Auto) 87.8 % Lymph % (Auto) 5.7 % [place] % (Auto) 5.1 % Eos % (Auto) 0.3 % Baso % (Auto) 0.4 % Neut # (Auto) 19.9 H (1.8-7.7) 10^3/u L Lymph # (Auto) 1.3 (0.8-4.8) 10^3/u L [place] # (Auto) 1.2 H (0.2-0.9) 10^3/u L Eos # (Auto) 0.1 (0.0-0.8) 10^3/u L Baso # (Auto) 0.1 (0.0-0.1) 10^3/u L Nucleated RBC % (a uto) 0 % Nucleated RBCs # 0.0 /100WBC Sodium 135 L (136-145) mmol/L Potassium 4.1 (3.5-5.1) mmol/L Chloride 98 (98-107) mmol/L Carbon Dioxide 24 (22-29) mmol/L Anion Gap 17.1 (5-19) BUN 19 (8-23) mg/dL Creatinine 0.9 (0.7-1.2) mg/dL GFR Calculation 83.4 L (90-130) mL/min Glucose 171 H (65-115) mg/dL Calculated Osmolal ity 281 L (285-295) mOsm/k g Calcium 10.1 (8.5-10.5) mg/dL Total Bilirubin 0.2 (0.15-1.2) mg/dL AST 16 (0-40) U/L ALT 17 (0-41) U/L Alkaline Phosphata se 114 (40-130) IU/L Total Protein 7.5 (6.6-8.7) g/dL Albumin 3.6 (3.5-5.2) g/dL Globulin 3.9 (1.3-4.6) g/dL Urine Color Yellow (Yellow) Urine Appearance Clear (CLEAR) Urine pH 7 (5-7) Ur Specific Gravit y 1.015 (1.005-1.030) Urine Protein Neg (Negative) Urine Glucose (UA) Norm (Normal) Urine Ketones Negative (Negative) Urine Blood Neg (Negative) Urine Nitrate Negative (Negative) Urine Bilirubin Neg (NEGATIVE) Urine Urobilinogen Norm (Negative) mg/dL Ur Leukocyte Tracie ase Negative (Negative) Discharge Plan Discharge Patient Disposition: Home, Self-Care Clinical Impression: Squamous cell lung cancer, Physical deconditioning, Sinus tachycardia, Acute dehydration Condition: Stable Prescriptions: No Action Zoloft 100 mg tablet 200 mg PO DAILY Qty: 30 RF: 2 Zyprexa 15 mg tablet 15 mg PO BEDTIME Qty: 30 RF: 2 alprazolam [Xanax] 0.5 mg tablet 0.5 mg PO BID PRN (Reason: anxiety) Qty: 60 RF: 1 multivitamin [Multiple Vitamins] Tablet 1 tab PO DAILY RF: 0 ferrous sulfate 325 mg (65 mg iron) tablet 325 mg PO BID Qty: 60 RF: 2 metoprolol tartrate 25 mg tablet 12.5 mg PO BID RF: 0 hydrocodone-acetaminophen 5-325 mg Tablet 1 tab PO Q6H PRN (Reason: Pain) RF: 0 tamsulosin 0.4 mg capsule 0.4 mg PO BEDTIME RF: 0 Discharge Orders: Discharge Order (Routine); Ordered 10/07/19 Ordered By: Frandy Ingram Referrals: Silverio Spain MD [Primary Care Provider] - Discharge Diet: Usual diet Discharge Activity: Increase activity as tolerated Discharge Date/Time: 10/07/19 16:14 Coding Level of Care Code ED Senior 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
--- NOTE | 2019-10-07 12:32 | XRR_ITS ---
PROCEDURE INFORMATION: Exam: XR Chest, 1 View Exam date and time: 10/07/2019 12:33 PM Age: 69 years old Clinical indication: Cough and dyspnea; Additional info: Dyspnea/cough TECHNIQUE: Imaging protocol: XR of the chest Views: 1 view. COMPARISON: No relevant prior studies available. FINDINGS: Lungs: Right-sided volume loss with prominent right upper lobe airspace disease. Emphysematous change and interstitial prominence. Pleural space: Right pleural thickening. Heart/Mediastinum: Suspected right mediastinal and hilar lymphadenopathy. No cardiomegaly. Bones/joints: Postoperative change in the cervical spine in left clavicle. XR/XR chest 1V portable [id number] IMPRESSION: 1. Suspected right mediastinal and hilar lymphadenopathy. 2. Right-sided volume loss with prominent right upper lobe airspace disease. 3. Additional findings as described above.
--- NOTE | 2019-10-07 12:32 | ECG_ITS ---
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 Measurements Intervals [place] Rate: 113 P: 68 WV: 166 QRS: 48 QRSD: 80 T: 62 QT: 291 QTc: 400 Interpretive Statements SINUS TACHYCARDIA POSSIBLE LEFT ATRIAL ENLARGEMENT [-0.1mV P WAVE IN V1/V2] POSSIBLE RIGHT VENTRICULAR CONDUCTION DELAY [RSR (QR) IN V1/V2] ABNORMAL RHYTHM ECG Compared to ECG 08/28/2019 17:04:32 Sinus rhythm no longer present Electronically Signed On 10-07-2019 23:42:05 CDT by Lopez Gutierrez M.D. [id number]
[2019-10-07] MEDS: ondansetron 2 mg/ML SDV 2 mL 4 MG IVP (12:47)
[2019-10-07] MEDS: morphine 4 mg/mL SDV 1 mL 6 MG IVP (12:51)
[2019-10-07] MEDS: sodium chloride 0.9% 1,000 ML 999 ML IV (13:12)
[2019-10-07 13:28] LABS: Basophils # 0.1 10^3/uL (0.0-0.1); Basophils % 0.4 %; Eosinophils # 0.1 10^3/uL (0.0-0.8); Eosinophils % 0.3 %; Hematocrit 32.9 % (42.0-52.0); Hemoglobin 9.9 g/dL (11.7-16.6); Lymphocytes # 1.3 10^3/uL (0.8-4.8); Lymphocytes % 5.7 %; Mean Corpuscular HGB Conc 30.1 g/dL (30.0-36.0); Mean Corpuscular Hemoglobin 25.8 pg (28.0-34.0); Mean Corpuscular Volume 85.7 fL (80-94); Mean Platelet Volume 9.7 fL (7.4-10.4); Monocytes # 1.2 10^3/uL (0.2-0.9); Monocytes % 5.1 %; Neutrophils # 19.9 10^3/uL (1.8-7.7); Neutrophils % 87.8 %; Nucleated Red Blood Cells % 0 %; Platelet Count 511 10^3/cmm (130-400); Red Blood Count 3.84 10^6/uL (4.1-5.3); Red Cell Distribution Width 14.6 % (12.1-15.1); White Blood Count 22.6 10^3/uL (4.0-10.0)
[2019-10-07 13:35] LABS: Add Urine Microscopic? NO
[2019-10-07 13:48] LABS: Urine Appearance Clear (CLEAR); Urine Color Yellow (Yellow)
[2019-10-07 13:49] LABS: Bilirubin Urine Neg (NEGATIVE); Blood Urine Neg (Negative); Glucose Urine UA Norm (Normal); Ketones Urine Negative (Negative); Leukocyte Esterase Urine Negative (Negative); Nitrate Urine Negative (Negative); Protein Urine Neg (Negative); Specific Gravity, Urine 1.015 (1.005-1.030); Urobilinogen Urine Norm (Negative); pH Urine 7 (5-7)
[2019-10-07 13:55] LABS: Alanine Aminotransferase 17 U/L (0-41); Albumin Level 3.6 g/dL (3.5-5.2); Alkaline Phosphatase 114 IU/L (40-130); Anion Gap 17.1 (5-19); Aspartate Amino Transferase 16 U/L (0-40); Blood Urea Nitrogen 19 mg/dL (8-23); Calcium 10.1 mg/dL (8.5-10.5); Carbon Dioxide 24 mmol/L (22-29); Chloride 98 mmol/L (98-107); Creatinine Clr Calc Pharmacy 67.5383; Globulin 3.9 g/dL (1.3-4.6); Glomerular Filtration Rate 83.4 mL/min (90-130); Glucose 171 mg/dL (65-115); Osmolality Calculated 281 mOsm/kg (285-295); Potassium 4.1 mmol/L (3.5-5.1); Sodium 135 mmol/L (136-145); Total Bilirubin 0.2 mg/dL (0.15-1.2); Total Protein 7.5 g/dL (6.6-8.7)
[2019-10-07] MEDS: sodium chloride 0.9% 500 ML 999 ML IV (15:22)
== END 2019-10-07 16:14 | disposition home or self-care (01) ==
PROVIDERS: Emergency Provider Family Medicine; PCP Family Medicine
DX: C34.90 Malignant neoplasm of unspecified part of unspecified bronchus or lung (principal); R00.0 Tachycardia, unspecified; E86.0 Dehydration; Z87.891 Personal history of nicotine dependence
CPT/HCPCS: 12345; 71045; 80053; 81003; 85025; 93005; 96361; 96374; 96375; 99283; 99284; J2270; J2405; J7030; J7040

== ENCOUNTER 2019-10-09 06:21 | Day surgery (SDC) | payer MEDICARE, MEDICAID, SELFPAY ==
[2019-10-08 12:47] VITALS: BMI 19.7
--- NOTE | 2019-10-09 | SCC_ITS ---
Procedure Done: Left subclavian PowerPort Port-A-Cath placement 19.7 seconds of fluoroscopic guidance, for a cumulative dose of 2.74 mGy, was provided to Dr. Cowan by the radiology department. C-arm images of the chest were saved for the patient's permanent record. [facility]
--- NOTE | 2019-10-09 06:36 | SC_ITS ---
WS: [id number] C-ARM RADIOGRAPHS CHEST; 3 IMAGES HISTORY: Port-A-Cath placement COMPARISON: None available. Intraoperative imaging during Port-A-Cath placement to the LEFT subclavian vein. SC/C-arm FL for CVA [id number] IMPRESSION: Intraoperative imaging during Port-A-Cath placement.
[2019-10-09 06:42] VITALS: BP 100/80; PULSE 140; RESP 20; TEMP 36.8; O2SAT 96
--- NOTE | 2019-10-09 07:00 | ECG_ITS ---
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 Measurements Intervals [place] Rate: 124 P: 68 NM: 161 QRS: 53 QRSD: 75 T: 63 QT: 305 QTc: 438 Interpretive Statements SINUS TACHYCARDIA INDETERMINATE AXIS POSSIBLE RIGHT VENTRICULAR CONDUCTION DELAY [RSR (QR) IN V1/V2] SEPTAL MYOCARDIAL INFARCTION [40+ ms Q WAVE IN V1/V2], OF INDETERMINATE AGE Compared to ECG 10/07/2019 12:46:59 Indeterminate axis now present Myocardial infarct finding now present Electronically Signed On 10-09-2019 21:14:29 CDT by Afshin Frey M.D. [id number]
[2019-10-09] MEDS: sodium chloride 0.9% 1,000 ML 30 ML IV (07:10)
--- NOTE | 2019-10-09 07:41 | ANES.PREANE2 ---
Pre-Anesthetic Assessment Pre-Anesthetic Assessment: Height/Weight: Height 1.7 m Weight 57.153 kg Temp Pulse Resp BP Pulse Ox 98.3 F 140 H 20 H 100/80 96 10/09/19 06:42 10/09/19 06:42 10/09/19 06:42 10/09/19 06:42 10/09/19 06:42 Preop Diagnosis: Lung cancer Proposed Procedure: Operation Date: 10/09/19 08:00 Proposed Procedures p Portacath Placement 81916 C34.90 40356 R22.2(Not Applicable) - Raheem Cowan MD s Left Supraclavicular Biopsy(Left) - Raheem Cowan MD Last intake: Intake Last Liquid Date 10/08/19 Last Liquid Time 17:00 Last Solid Date 10/08/19 Last Solid Time 17:00 Social: Social History: Tobacco (quit 08/2019) and No alcohol Exam: Pre-Anes Outpt Exam: alert, oriented x 3, clear to auscultation bilaterally and regular rate & rhythm Airway: Submandibular: WNL Cervical ROM: WNL MP: 2 Dentition: False (upper and lower) History/ROS: No significant history except as noted Pulmonary: Pulmonary: COPD and SIMPSON CV/HEM: CV/HEM: Anemia, Arrythmia (SVT) and HTN : : None reported Hepatic: Hepatic: None reported GI: GI: None reported Metabolic: Metabolic: None reported Musc/skel: Comments: neck pain Neuropsych: Neuropsych: None reported Anesthetic Plan: ASA status: 3 Anesthesia: Anesthesia Evaluation and General Risk of > 500 ml blood loss (7ml/kg in children): No Meds/Allergies Current Medications: Current Medications Generic Name Dose Route Start Last Admin Trade Name Freq PRN Reason Stop Dose Admin Sodium Chloride 1,000 mls @ 30 ml s/hr 10/09/19 06:45 10/09/19 07:10 Sodium Chloride 0.9% IV 10/10/19 06:44 30 mls/hr .Q24H VIKY Administration PFSH Anesthesia PFSH: Medical History Anemia Anorexia nervosa, restricting type Closed left clavicular fracture Generalized anxiety disorder H/O clavicle fracture with hardware Sinus tachycardia An EKG was done today which revealed a sinus tachycardia with a rate of 129 bpm. Poor R wave progression. Possible left atrial enlargement. SOB (shortness of breath) Tachycardia Surgical History H/O neck surgery Hx of cholecystectomy Family History Mother Cancer Bladder Denies family history of Anesthesia complication Bleeding disorder Social History Smoking and tobacco status: former smoker Alcohol intake: former Lives independently: Yes Household members: children Current occupational status: disabled History of recent travel: No Current gender identity: Male Data Anesthesia Cardiac Studies: No Data to Display
--- NOTE | 2019-10-09 08:09 | W.PM.OPSUD ---
Surgery/Procedure H&P Update DATE OF PROCEDURE: October 09, 2019 DATE H&P PERFORMED: 10/02/19 H&P UPDATE INFORMATION: I have reviewed H&P completed within last 30 days, I have examined patient prior to procedure and No changes to prior documentation PREOP DIAGNOSIS: Lung cancer PRIMARY INDICATION FOR PROCEDURE: The same PLANNED PROCEDURE: Operation Date: 10/09/19 08:00 Proposed Procedures p Portacath Placement 05547 C34.90 64435 R22.2(Not Applicable) - Raheem Cowan MD s Left Supraclavicular Biopsy(Left) - Raheem Cowan MD
[2019-10-09] MEDS: lidocaine 2% INJ 20 mL INJECTION (08:49)
[2019-10-09] MEDS: heparin, porcine 1,000 unit/mL INJ 10 mL 9000 UNIT INJECTION (08:52)
--- NOTE | 2019-10-09 08:59 | PM.OP ---
Operative Report Date of procedure: October 09, 2019 Pre-op Diagnosis: Lung cancer Post-op diagnosis: other (Right lung cancer and left supraclavicular mass) Post-op Findings: Large supraclavicular mass measures about 5 x 7 cm, that was not appreciated prior Procedure Done: Left subclavian PowerPort Port-A-Cath placement under fluoroscopic guidance and under my interpretation through the whole entire procedure. Multiple Donavon-Cut needle biopsies using 18-gauge needle of left supraclavicular mass Implants: Left subclavian PowerPort Specimens removed/disposition: Multiple Donavon-Cut biopsies of left supraclavicular mass Surgeon: Raheem Cowan Community Recreation Coordinator: medical service technician Genia Circulating nurse Patricia Coy Anesthesia: MAC (Abdifatah Little) Estimated blood loss (mL): 5 Condition: stable Disposition: same day Brief History: This is a pleasant 69 years old gentleman diagnosed with right lung cancer and was found to have a supraclavicular mass on PET CT scan . plan of care; After thorough history physical examination and reviewing the chart, I counseled the patient for Port-A-Cath placement, and biopsy of left supraclavicular mass indications, risks including pneumothorax and injury of major vascular structures, benefits,indications and alternatives were all discussed with the patient, patient understands and is interested to proceed. Rationale was carefully and clearly discussed with the patient.Appropriate informed consent have been reviewed and signed. Procedure: Patient was identified in the holding area and taken to the operative room and placed in supine position IV propofol was given by the anesthesia provider ,both arms were tucked,Time-out was done verifying the patient's name/date of /planned procedure and destination after the procedure, all were in agreement. SCDs confirmed to be functioning, preoperative antibiotics administered per protocol, and beta tapan protocol was confirmed, appropriate positioning of the patient was done by me. Medications were reviewed to assess for anticoagulant usage. Risks and benefits and prevention of central line associated blood stream infection (CLABSI) were discussed with the patient/CPOA, and a consent was obtained. Monitors were in place and monitored throughout the procedure. All necessary supplies were available prior to start. Hand hygiene was completed prior to starting. Maximum barrier technique was utilized including a sterile gown, sterile gloves with a hat and mask. Site was was prepped with [chlorhexidine] and a full body drape was placed. 5 mL of 2% lidocaine was injected into the skin with a 25 gauge needle. Prep& drape was done under the usual sterile technique, lidocaine 2% was injected at the site of the stick, started by left subclavian stick that retrieved venous blood was obtained from the first stick, a guidewire was then threaded and under the guidance of fluoroscopy position was confirmed to be in the IVC and my interpretation, there was no PVC changes, at that point the guidewire was secured to the drapes with a hemostat and the needle was taken out, attention was then deviated towards creation of a pocket for the port were lidocaine 2% was injected using an 15 blade knife skin incision was created dissection using the Bovie to create a pocket for the Port-A-Cath to be accommodated, hemostasis was secured, after the port being appropriately flushed it was inserted into the pocket and a tunneler was used to accommodate the catheter of the port cath to be delivered through the incision first created at the site of the stick, at that point under fluoroscopy an estimated length was measured for the catheter and was cut at the designed level, followed by that a dilator with the sheath introduced onto the guidewire the dilator and the wire were retrieved and the catheter of the port was introduced via the sheath where it was peeled off and the catheter maintained to be in the SVC that was confirmed with fluoroscopy, and the fluoroscopy interpretation was done by me throughout the entire procedure. The port maintained to be stable at the pocket created Following that 3-0 Vicryl deep subdermal interrupted sutures, skin was then closed by 4-0 Monocryl as subcuticular closure.The stick site was closed by 4-0 Monocryl. Appropriate flushing of the port was done with heparin Attention was now deviated towards left supraclavicular mass which was more appreciated while the patient is asleep, lidocaine 2% was injected followed by multiple Donavon-Cut needle biopsies using 18-gauge specimens were passed to the circulating nurse on a piece of Telfa to be placed in formalin for permanent pathology. Patient tolerated the procedure well was taken to the recovery area Count was correct at the end of the procedure I was present for the whole entire procedure Position of the catheter was checked with a postoperative chest x-ray and it was in good position without evidence of pneumothorax
--- NOTE | 2019-10-09 09:05 | XRR_ITS ---
PROCEDURE INFORMATION: Exam: XR Chest, 1 View Exam date and time: 10/09/2019 9:39 AM Age: 69 years old Clinical indication: Device placement; Prior surgery; Surgery date: Post-operative (0-2 days); Surgery type: Port placement; Additional info: Left subclavian vein powerport placement TECHNIQUE: Imaging protocol: XR of the chest Views: 1 view. COMPARISON: CR XR chest 1V portable [id number] 10/07/2019 12:53 PM FINDINGS: Tubes, catheters and devices: Left subclavian Port-A-Cath terminates within the distal SVC. Lungs: There is progressive right upper lobe opacification. Pleural space: Unremarkable. No pleural effusion. No pneumothorax. Heart/Mediastinum: Unremarkable. No cardiomegaly. Diaphragm: There is elevation the right hemidiaphragm. Bones/joints: Unremarkable. XR/XR chest 1V portable [id number] IMPRESSION: Progressive right upper lobe opacification.
[2019-10-09 09:08] VITALS: BP 98/69; PULSE 122; RESP 16; TEMP 37.3; O2SAT 94
[2019-10-09 09:37] VITALS: BP 106/67; PULSE 114; RESP 14; TEMP 37.1; O2SAT 96
== END 2019-10-09 09:52 | disposition home or self-care (01) ==
PROVIDERS: PCP Family Medicine; Visit Provider Surgery
PROC: (CPT 11106; principal; 2019-10-09 08:00)
PROC: (CPT 11106; 2019-10-09 08:00)
DX: C34.91 Malignant neoplasm of unspecified part of right bronchus or lung (principal); R22.2 Localized swelling, mass and lump, trunk; J44.9 Chronic obstructive pulmonary disease, unspecified; I10 Essential (primary) hypertension; Z87.891 Personal history of nicotine dependence; F41.9 Anxiety disorder, unspecified; C34.11 Malignant neoplasm of upper lobe, right bronchus or lung; Z51.0 Encounter for antineoplastic radiation therapy; C77.1 Secondary and unspecified malignant neoplasm of intrathoracic lymph nodes; D64.9 Anemia, unspecified; F33.2 Major depressive disorder, recurrent severe without psychotic features; F41.1 Generalized anxiety disorder; F50.01 Anorexia nervosa, restricting type
CPT/HCPCS: 11106; 36561; 12345; 71045; 76000; 77001; 77387; 77412; 88309; 93005; C1788; J0690; J1644; J2001; J2704; J3010; J7030

== ENCOUNTER 2019-10-14 06:51 | Outpatient (RCR) | payer MEDICARE, MEDICAID, SELFPAY | END 2019-10-14 23:59 | disposition home or self-care (01) | LOC: ONCMED 06:51 | PROVIDERS: PCP Family Medicine; Visit Provider Specialist | DX: Z51.0 Encounter for antineoplastic radiation therapy (principal); C34.11 Malignant neoplasm of upper lobe, right bronchus or lung; C77.1 Secondary and unspecified malignant neoplasm of intrathoracic lymph nodes; D64.9 Anemia, unspecified; F33.2 Major depressive disorder, recurrent severe without psychotic features; F41.1 Generalized anxiety disorder; F50.01 Anorexia nervosa, restricting type | CPT/HCPCS: 77014; 77387; 77412 ==

== ENCOUNTER 2019-10-15 11:50 | Inpatient (IN) | payer MEDICARE, MEDICAID, SELFPAY ==
[2019-10-15] VITALS (11 sets, daily range): BP systolic 98–132; BP diastolic 68–83; PULSE 77–139; RESP 17–29; TEMP 36.8–38.4; O2SAT 93–98; BMI 19.8
--- NOTE | 2019-10-15 11:54 | XRR_ITS ---
PROCEDURE INFORMATION: Exam: XR Chest, 1 View Exam date and time: 10/15/2019 12:53 PM Age: 69 years old Clinical indication: Patient HX: HX lung cancer. Shortness of breath. Direct admit to hospital; Additional info: Dyspnea/cough TECHNIQUE: Imaging protocol: XR of the chest Views: 1 view. COMPARISON: CR XR chest 1V portable [id number] 10/09/2019 9:27 AM FINDINGS: Tubes, catheters and devices: There is a left subclavian catheter whose tip is at the cavoatrial junction. Lungs: There is consolidation in the right upper lobe of the lung. Consolidation in the right lower lobe has improved. There is volume loss in the right hemithorax. The left lung remains clear. Pleural space: Unremarkable. No pleural effusion. No pneumothorax. Heart/Mediastinum: Unremarkable. No cardiomegaly. Bones/joints: Unremarkable. XR/XR chest 1V portable [id number] IMPRESSION: There is consolidation in the right upper lobe of the lung. Consolidation in the right lower lobe has improved when compared with 10/09/2019.
--- NOTE | 2019-10-15 11:54 | ECG_ITS ---
[facility] Test Date: 2019-10-15 Pat Name: Cahlino Jeffrey Department: Room: Gender: Male Polarity Tester: : 1950 Requested By: Frandy Miller Order Number: [id number] Vicky MD: Sekou Salinas M.D. Measurements Intervals [place] Rate: 113 P: 64 AR: 163 QRS: 35 QRSD: 64 T: 58 QT: 301 QTc: 413 Interpretive Statements SINUS TACHYCARDIA POSSIBLE LEFT ATRIAL ENLARGEMENT [-0.1mV P WAVE IN V1/V2] ABNORMAL RHYTHM ECG Compared to ECG 10/09/2019 07:12:46 Indeterminate axis no longer present Myocardial infarct finding no longer present Electronically Signed On 10-15-2019 17:44:48 CDT by Sekou Salinas M.D. [id number]
[2019-10-15 12:18] LABS: Basophils # 0.1 10^3/uL (0.0-0.1); Basophils % 0.3 %; Eosinophils # 0.1 10^3/uL (0.0-0.8); Eosinophils % 0.4 %; Hematocrit 28.8 % (42.0-52.0); Hemoglobin 8.6 g/dL (11.7-16.6); Lymphocytes # 1.3 10^3/uL (0.8-4.8); Mean Corpuscular HGB Conc 29.9 g/dL (30.0-36.0); Mean Corpuscular Hemoglobin 24.9 pg (28.0-34.0); Mean Corpuscular Volume 83.5 fL (80-94); Mean Platelet Volume 10.1 fL (7.4-10.4); Monocytes # 1.5 10^3/uL (0.2-0.9); Monocytes % 5.5 %; Neutrophils # 23.4 10^3/uL (1.8-7.7); Neutrophils % 87.9 %; Nucleated Red Blood Cells % 0 %; Platelet Count 385 10^3/cmm (130-400); Red Blood Count 3.45 10^6/uL (4.1-5.3); Red Cell Distribution Width 15.2 % (12.1-15.1); White Blood Count 26.7 10^3/uL (4.0-10.0)
[2019-10-15 12:18] LABS: ABG PCO2 34.8 mmHg (35-45); ABG PH Result 7.46 (7.35-7.45); Alveolar-Arterial Oxygen Gradi 28.3 mmHg (5-10); Arterial Blood Gas Hematocrit 25.4 % (42-52); Base Excess ABG 0.8 mmol/L (-2.0-2.0); Blood Gas Allen Test Pos; Blood Gas Sample Site Radial, right; Blood Gas Sample Type Arterial; Carboxyhemoglobin 1.3 %THgb (0.4-20.1); HCO3 ABG 24.6 mmol/L (22-26); HGB O2 Sat 94.9 % (95-100); Ionized Calcium Level - ABG 1.2 mmol/L (1.1-1.4); Methemoglobin 0.5 % (0.4-1.5); Oxygen Saturation ABG 96.7; PO2 ABG 76.7 mmHg (80.0-100.0); Potassium Level - ABG 4.1 mmol/L (3.5-5.0); Total Hemoglobin 8.3 g/dL (14-18)
--- NOTE | 2019-10-15 12:19 | W.ED.SOB ---
HPI - SOB/Dyspnea General: Chief Complaint: General Medical Stated Complaint: DIRECT ADMIT Time Seen by Provider: 10/15/19 11:54 History of Present Illness: HPI Narrative: 69-year-old male sent over by Dr. Sibley as a direct admission for postobstructive lung pneumonia secondary to right upper lobe squamous cell CA. He is failing outpatient treatment. He had been on some Levaquin they have been monitoring him his hemoglobin is dropped 8 4 he was in the office today and his heart rate was in the 130s of blood pressure in the 120s Dr. Sibley felt he needed to be admitted for onset of sepsis and a failure of outpatient therapy. Patient arrives here stating is having increasing cough fully denies any hemoptysis he has had increasing shortness of breath with any activity as well. MD elicited complaint: shortness of breath Pertinent past history: COPD and other (Right upper lobe squamous cell CA with postobstructive pneumonia ) Context: recent illness (Outpatient therapy for postobstructive pneumonia) Associated symptoms: Deny abdominal pain, chest pain, fever(s), nausea, orthopnea or vomiting Review of Systems Const: Denies: fever(s), chills, body aches, change in appetite, fatigue or malaise ENMT: Denies: throat pain, ear or mastoid pain, nasal discharge or nasal congestion Card: Denies: chest pain, edema, dyspnea on exertion or orthopnea Resp: Denies: dyspnea, productive cough or non-productive cough GI: Denies: abdominal pain, nausea, vomiting, hematemesis, coffee ground emesis, diarrhea, constipation, bloating, hematochezia or melena : Denies: flank pain, dysuria, urinary frequency or urinary urgency Skin/Breast: Denies: rash or pruritus PFSH ED PFSH: Medical History Anemia Anorexia nervosa, restricting type Closed left clavicular fracture Generalized anxiety disorder H/O clavicle fracture with hardware Sinus tachycardia An EKG was done today which revealed a sinus tachycardia with a rate of 129 bpm. Poor R wave progression. Possible left atrial enlargement. SOB (shortness of breath) Tachycardia Surgical History H/O neck surgery Hx of cholecystectomy Family History Mother Cancer Bladder Denies family history of Anesthesia complication Bleeding disorder Social History Smoking and tobacco status: former smoker Alcohol intake: former Lives independently: Yes Household members: children Current occupational status: disabled History of recent travel: No Current gender identity: Male Physical Exam Const: COMMON NORMALS: no acute distress GENERAL APPEARANCE: cooperative and comfortable ORIENTATION/CONSCIOUSNESS: Yes awake, Yes oriented to person, Yes oriented to place and Yes oriented to time HENMT: COMMON NORMALS: normocephalic, atraumatic, hearing grossly normal bilaterally, external ears normal, EAC's normal, TM's normal bilaterally, Normal nasal mucous membranes and turbinates present, moist oral mucous membranes and oropharynx normal HEAD & SCALP: normocephalic and atraumatic NOSE: Normal nasal mucous membranes and turbinates present EXTERNAL EAR: Yes external ears normal EXTERNAL AUDITORY CANAL: EAC's normal TYMPANIC MEMBRANE: TM's normal bilaterally Eye: COMMON NORMALS: Equal, round and reactive pupils present, EOMs intact bilaterally, conjunctivae normal and no scleral icterus CONJUNCTIVA: Yes conjunctivae normal PUPIL: Yes Equal, round and reactive pupils present Neck/C-Spine: COMMON NORMALS: full ROM, no lymphadenopathy, supple and no JVD Lymph: LYMPHATIC: no lymphadenopathy noted and no lymphedema noted Resp: COMMON NORMALS: normal respiratory effort, No retractions, No use of accessory muscles and clear to auscultation bilaterally AUSCULTATION: clear to auscultation bilaterally Cardio: COMMON NORMALS: no JVD, regular rate, regular rhythm and No murmurs present (Cardio) RATE: regular rate RHYTHM: regular rhythm GI: COMMON NORMALS: Soft to palpation and No hepatosplenomegaly present AUSCULTATION: Yes normoactive bowel sounds PALPATION: Yes Soft to palpation, No Tenderness to palpation present (GI), No Guarding due to palpation present (GI) and Yes No hepatosplenomegaly present Extremity: COMMON NORMALS: normal to inspection, capillary refill normal, no clubbing, cyanosis or edema, no calf tenderness and no pedal edema Neuro: SENSORIUM/ORIENTATION: Yes oriented to person, Yes oriented to place and Yes oriented to time Skin: COMMON NORMALS: no rashes or lesions noted GENERAL SKIN EXAM: no rashes or lesions noted Course Vital Signs: Vital signs: Vital Signs Temperature 98.5 F 10/17/19 12:00 Pulse Rate 113 H 10/17/19 12:00 Respiratory Rate 20 H 10/17/19 12:00 Blood Pressure 106/71 10/17/19 12:00 Pulse Oximetry 93 10/17/19 12:00 MDM - SOB/Dyspnea MDM Narrative: Medical decision making narrative: Patient was sent to the ER as a direct admission for failure as an outpatient therapy he has pneumonia white count 26,000 has failed outpatient therapy he is to continue inpatient palliative radiation to try to relieve the postoperative obstruction I discussed with Dr. De Oliveira he will accept the patient admission have started on Zosyn Levaquin vancomycin for now. Lab Data: Labs: Lab Results 10/15/19 10/15/19 10/15/19 Range/Units 12:00 12:05 12:05 WBC 26.7 H (4.0-10.0) 10^3/ uL RBC 3.45 L (4.1-5.3) 10^6/u L Hgb 8.6 L (11.7-16.6) g/dL Hct 28.8 L (42.0-52.0) % MCV 83.5 (80-94) fL MCH 24.9 L (28.0-34.0) pg MCHC 29.9 L (30.0-36.0) g/dL RDW 15.2 H (12.1-15.1) % Plt Count 385 (130-400) 10^3/c mm MPV 10.1 (7.4-10.4) fL Neut % (Auto) 87.9 % Lymph % (Auto) 5.0 % Corson % (Auto) 5.5 % Eos % (Auto) 0.4 % Baso % (Auto) 0.3 % Neut # (Auto) 23.4 H (1.8-7.7) 10^3/u L Lymph # (Auto) 1.3 (0.8-4.8) 10^3/u L Corson # (Auto) 1.5 H (0.2-0.9) 10^3/u L Eos # (Auto) 0.1 (0.0-0.8) 10^3/u L Baso # (Auto) 0.1 (0.0-0.1) 10^3/u L Nucleated RBC % (a uto) 0 % Nucleated RBCs # 0.0 /100WBC Specimen Type Sample Site ABG pH (7.35-7.45) ABG pCO2 (35-45) mmHg ABG pO2 (80.0-100.0) mmH g ABG HCO3 (22-26) mmol/L ABG O2 Saturation ABG Base Excess (-2.0-2.0) mmol/ L Zafar Test A-a O2 Gradient (5-10) mmHg Hematocrit (42-52) % Hgb O2 Saturation (95-100) % Carboxyhemoglobin (0.4-20.1) %THgb Methemoglobin (0.4-1.5) % Total Hemoglobin (14-18) g/dL Ionized Calcium (1.1-1.4) mmol/L O2 Delivery Device FiO2 % Cumulative Effects Analyst ID Sodium 132 L (136-145) mmol/L Potassium 4.5 (3.5-5.1) mmol/L Chloride 95 L (98-107) mmol/L Carbon Dioxide 23 (22-29) mmol/L Anion Gap 18.5 (5-19) BUN 17 (8-23) mg/dL Creatinine 0.8 (0.7-1.2) mg/dL GFR Calculation 95.6 (90-130) mL/min Glucose 158 H (65-115) mg/dL Calculated Osmolal ity 274 L (285-295) mOsm/k g Lactic Acid (0.5-2.2) mmol/L Calcium 9.5 (8.5-10.5) mg/dL Total Bilirubin 0.2 (0.15-1.2) mg/dL AST 20 (0-40) U/L ALT 18 (0-41) U/L Alkaline Phosphata se 129 (40-130) IU/L Total Protein 7.0 (6.6-8.7) g/dL Albumin 3.4 L (3.5-5.2) g/dL Globulin 3.6 (1.3-4.6) g/dL Serum Ketones (Negative) Nasal/Oral COVID-1 9 PCR Negative Influenza Type A A g (Negative) Influenza Type B A g (Negative) 10/15/19 10/15/19 10/15/19 Range/Units 12:05 12:05 12:07 WBC (4.0-10.0) 10^3/ uL RBC (4.1-5.3) 10^6/u L Hgb (11.7-16.6) g/dL Hct (42.0-52.0) % MCV (80-94) fL MCH (28.0-34.0) pg MCHC (30.0-36.0) g/dL RDW (12.1-15.1) % Plt Count (130-400) 10^3/c mm MPV (7.4-10.4) fL Neut % (Auto) % Lymph % (Auto) % Cors[place] % (Auto) % Eos % (Auto) % Baso % (Auto) % Neut # (Auto) (1.8-7.7) 10^3/u L Lymph # (Auto) (0.8-4.8) 10^3/u L Corson # (Auto) (0.2-0.9) 10^3/u L Eos # (Auto) (0.0-0.8) 10^3/u L Baso # (Auto) (0.0-0.1) 10^3/u L Nucleated RBC % (a uto) % Nucleated RBCs # /100WBC Specimen Type Arterial Sample Site Radial, right ABG pH 7.46 H (7.35-7.45) ABG pCO2 34.8 L (35-45) mmHg ABG pO2 76.7 L (80.0-100.0) mmH g ABG HCO3 24.6 (22-26) mmol/L ABG O2 Saturation 96.7 ABG Base Excess 0.8 (-2.0-2.0) mmol/ L Zafar Test Pos A-a O2 Gradient 28.3 H (5-10) mmHg Hematocrit 25.4 L (42-52) % Hgb O2 Saturation 94.9 L (95-100) % Carboxyhemoglobin 1.3 (0.4-20.1) %THgb Methemoglobin 0.5 (0.4-1.5) % Total Hemoglobin 8.3 L (14-18) g/dL Ionized Calcium 1.2 (1.1-1.4) mmol/L O2 Delivery Device None FiO2 21.0 % Cumulative Effects Analyst ID ed Sodium 133.0 (136-145) mmol/L Potassium 4.1 (3.5-5.1) mmol/L Chloride (98-107) mmol/L Carbon Dioxide (22-29) mmol/L Anion Gap (5-19) BUN (8-23) mg/dL Creatinine (0.7-1.2) mg/dL GFR Calculation (90-130) mL/min Glucose 145.0 H (65-115) mg/dL Calculated Osmolal ity (285-295) mOsm/k g Lactic Acid 1.9 (0.5-2.2) mmol/L Calcium (8.5-10.5) mg/dL Total Bilirubin (0.15-1.2) mg/dL AST (0-40) U/L ALT (0-41) U/L Alkaline Phosphata se (40-130) IU/L Total Protein (6.6-8.7) g/dL Albumin (3.5-5.2) g/dL Globulin (1.3-4.6) g/dL Serum Ketones Negative (Negative) Nasal/Oral COVID-1 9 PCR Influenza Type A A g (Negative) Influenza Type B A g (Negative) 10/15/19 Range/Units 12:10 WBC (4.0-10.0) 10^3/ uL RBC (4.1-5.3) 10^6/u L Hgb (11.7-16.6) g/dL Hct (42.0-52.0) % MCV (80-94) fL MCH (28.0-34.0) pg MCHC (30.0-36.0) g/dL RDW (12.1-15.1) % Plt Count (130-400) 10^3/c mm MPV (7.4-10.4) fL Neut % (Auto) % Lymph % (Auto) % Corson % (Auto) % Eos % (Auto) % Baso % (Auto) % Neut # (Auto) (1.8-7.7) 10^3/u L Lymph # (Auto) (0.8-4.8) 10^3/u L [place] # (Auto) (0.2-0.9) 10^3/u L Eos # (Auto) (0.0-0.8) 10^3/u L Baso # (Auto) (0.0-0.1) 10^3/u L Nucleated RBC % (a uto) % Nucleated RBCs # /100WBC Specimen Type Sample Site ABG pH (7.35-7.45) ABG pCO2 (35-45) mmHg ABG pO2 (80.0-100.0) mmH g ABG HCO3 (22-26) mmol/L ABG O2 Saturation ABG Base Excess (-2.0-2.0) mmol/ L Zafar Test A-a O2 Gradient (5-10) mmHg Hematocrit (42-52) % Hgb O2 Saturation (95-100) % Carboxyhemoglobin (0.4-20.1) %THgb Methemoglobin (0.4-1.5) % Total Hemoglobin (14-18) g/dL Ionized Calcium (1.1-1.4) mmol/L O2 Delivery Device FiO2 % Cumulative Effects Analyst ID Sodium (136-145) mmol/L Potassium (3.5-5.1) mmol/L Chloride (98-107) mmol/L Carbon Dioxide (22-29) mmol/L Anion Gap (5-19) BUN (8-23) mg/dL Creatinine (0.7-1.2) mg/dL GFR Calculation (90-130) mL/min Glucose (65-115) mg/dL Calculated Osmolal ity (285-295) mOsm/k g Lactic Acid (0.5-2.2) mmol/L Calcium (8.5-10.5) mg/dL Total Bilirubin (0.15-1.2) mg/dL AST (0-40) U/L ALT (0-41) U/L Alkaline Phosphata se (40-130) IU/L Total Protein (6.6-8.7) g/dL Albumin (3.5-5.2) g/dL Globulin (1.3-4.6) g/dL Serum Ketones (Negative) Nasal/Oral COVID-1 9 PCR Influenza Type A A g Negative (Negative) Influenza Type B A g Negative (Negative) Discharge Plan Discharge Patient Disposition: Admitted As Inpatient Admit Provider: Silverio Spain Clinical Impression: Pneumonia, Squamous cell lung cancer, Anemia Condition: Stable Referrals: Silverio Spain MD [Primary Care Provider] - Discharge Date/Time: 10/15/19 18:08 Coding Level of Care Code ED Seo Marketing Specialist for Chg Fwd Exam Comprehensive
[2019-10-15 12:31] LABS: Ketone (Acetest) Serum Negative (Negative)
[2019-10-15] MEDS: levofloxacin-dextrose 5 % 750 MG/150 ML PREMIX 100 MG IV (12:36)
[2019-10-15 12:37] LABS: Lactic Sepsis W/Reflex 1.9 mmol/L (0.5-2.2)
[2019-10-15 12:38] LABS: Alanine Aminotransferase 18 U/L (0-41); Albumin Level 3.4 g/dL (3.5-5.2); Alkaline Phosphatase 129 IU/L (40-130); Anion Gap 18.5 (5-19); Blood Urea Nitrogen 17 mg/dL (8-23); Calcium 9.5 mg/dL (8.5-10.5); Carbon Dioxide 23 mmol/L (22-29); Chloride 95 mmol/L (98-107); Globulin 3.6 g/dL (1.3-4.6); Glomerular Filtration Rate 95.6 mL/min (90-130); Glucose 158 mg/dL (65-115); Osmolality Calculated 274 mOsm/kg (285-295); Potassium 4.5 mmol/L (3.5-5.1); Sodium 132 mmol/L (136-145); Total Bilirubin 0.2 mg/dL (0.15-1.2)
[2019-10-15 12:53] LABS: Aspartate Amino Transferase 20 U/L (0-40)
[2019-10-15] MEDS: vancomycin 750 MG in sodium chloride 0.9% 250 ML 250 MG IV (13:11)
[2019-10-15] MEDS: piperacillin-tazobactam 3.375 GM in sodium chloride 0.9% (plus) 50 ML IV (13:40)
[2019-10-15 13:42] LABS: Add Urine Microscopic? NO
[2019-10-15] MEDS: morphine 4 mg/mL SDV 1 mL IVP ×2 (13:45→18:03)
[2019-10-15 13:56] LABS: Bilirubin Urine Neg (NEGATIVE); Blood Urine Neg (Negative); Glucose Urine UA Norm (Normal); Ketones Urine Negative (Negative); Leukocyte Esterase Urine Negative (Negative); Nitrate Urine Negative (Negative); Protein Urine Neg (Negative); Specific Gravity, Urine 1.005 (1.005-1.030); Urine Appearance Clear (CLEAR); Urine Color Yellow (Yellow); Urobilinogen Urine Neg (Negative); pH Urine 7 (5-7)
[2019-10-15 15:31] LABS: Influenza A by IFA Negative (Negative); Influenza B by IFA Negative (Negative)
--- NOTE | 2019-10-15 16:42 | PM.HP ---
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 The patient was seen at Dr. Sibley's office today with concern for sepsis and pneumonia, and was sent to the ER for further evaluation. In the ER the patient was found to have a right upper lobe postobstructive pneumonia. The patient was started on IV levofloxacin, Zosyn and vancomycin. His hemoglobin was also noted to be low, so he will be set up for a transfusion. The patient feels dehydrated. He has a cough with scant white sputum. The patient denies any hemoptysis currently. The patient denies any fevers. The patient denies nausea, vomiting, constipation, diarrhea and dysuria. Medications/Allergies Home Medications Medication Instructions Recorded Confirmed Last Taken Type multivitamin [Multiple Vitamins] 1 tab PO DAILY 08/13/19 10/15/19 10/15/19 History ferrous sulfate 325 mg PO BID #60 tab 08/15/19 10/15/19 10/15/19 Rx olanzapine 15 mg tablet 15 mg PO BEDTIME #30 tab 08/20/19 10/15/19 10/14/19 Rx sertraline 100 mg tablet 200 mg PO DAILY #30 tab 08/20/19 10/15/19 10/15/19 Rx alprazolam 0.5 mg tablet 0.5 mg PO BID PRN #60 tab 08/21/19 10/15/19 10/15/19 Rx metoprolol tartrate 12.5 mg PO BID 08/28/19 10/15/19 10/15/19 History hydrocodone-acetaminophen 1 - 2 tab PO Q6H PRN 10/07/19 10/15/19 10/15/19 History tamsulosin 0.4 mg PO BEDTIME 10/07/19 10/15/19 10/14/19 History Allergies Allergy/AdvReac Type Severity Reaction Status Date / Time No Known Allergies Allergy Verified 10/15/19 12:01 PFSH Acute PFSH: Medical History Anemia Anorexia nervosa, restricting type Closed left clavicular fracture Generalized anxiety disorder H/O clavicle fracture with hardware Sinus tachycardia An EKG was done today which revealed a sinus tachycardia with a rate of 129 bpm. Poor R wave progression. Possible left atrial enlargement. SOB (shortness of breath) Tachycardia Surgical History H/O neck surgery Hx of cholecystectomy Family History Mother Cancer Bladder Denies family history of Anesthesia complication Bleeding disorder Social History Smoking and tobacco status: former smoker Alcohol intake: former Lives independently: Yes Household members: children Current occupational status: disabled History of recent travel: No Current gender identity: Male Vitals/I&O/Wt Last Vital Signs Pulse 77 10/15/19 16:13 Resp 18 10/15/19 16:13 BP 120/82 10/15/19 16:13 Pulse Ox 93 10/15/19 16:13 10/15/19 10/15/19 10/15/19 06:59 14:59 22:59 Intake Total 250 / 250 Balance 250 / 250 Weight last 48 hrs Weight 127 lb Physical Exam Narrative: EXAM NARRATIVE: General: Alert and oriented x3 Eyes: PERRLA, EOMI Mouth: Mucous membranes moist. Neck: No masses appreciated Cardiac: Tachycardia with distant heart sounds Lungs: Rhonchi noted in the right upper lung with decreased air entry bilaterally. No significant wheezes. Abdomen: Soft, nontender without hepatosplenomegaly. Extremities: No edema Data : 10/15/19 12:05 10/15/19 12:05 Micro: Microbiology 10/15/19 12:12 Blood Culture - Preliminary Blood SPECIMEN COLLECTED 10/15/19 12:05 Blood Culture - Preliminary Blood SPECIMEN COLLECTED A&P Assessment and plan (1) Pneumonia: Status: Acute (2) Anemia: Status: Acute (3) Sinus tachycardia: Status: Acute (4) Squamous cell lung cancer: Status: Acute Additional A&P Information 1. Sepsis secondary to pneumonia -the patient has signs of a right upper lobe pneumonia that is likely postobstructive secondary to his lung cancer. The patient recently failed a round of levofloxacin as an outpatient. We will treat him with IV Zosyn, vancomycin and levofloxacin. We can alter these medications if needed. Blood cultures are pending. We will order sputum culture if able to produce one. The patient's white blood cell count is quite elevated, so a C. difficile will be checked if possible. 2. Anemia -the patient's hemoglobin is 8.7, however he seems to be dry and I am suspicious that this will drop further upon recheck of labs. Proceed with transfusion of 1 unit of blood and follow labs. 3. Sinus tachycardia -likely secondary to the underlying cancer, however cannot rule out the pneumonia being a factor as well. 4. Squamous cell lung cancer -the patient has a stage IIIb squamous cell lung cancer in the right upper lobe. The patient has not received any chemo or radiation at this time. He will likely get treatment once his pneumonia is clearing. 5. Pain management -the patient is currently taking hydrocodone for pain in his right upper back. The pain is likely secondary to the tumor. Okay to proceed with this and we can increase dosage if needed. 6. Prophylaxis -Lovenox for now. Attestations Medical Necessity Statement*: The patient will be here for greater than 2 midnights due to treatment of sepsis secondary to pneumonia. Coding Level of Care Code Acute [employer] Design Engineer for [facility] Diagnoses Pneumonia J18.9 Anemia D64.9 Sinus tachycardia R00.0 Squamous cell lung cancer C34.90
[2019-10-15] MEDS: sodium chloride 0.9% 1,000 ML 125 ML IV (19:41)
[2019-10-15] MEDS: OLANZapine 10 mg TABLET PO (22:03)
[2019-10-15] MEDS: tamsulosin 0.4 mg Capsule PO (22:03)
[2019-10-15] MEDS: HYDROcodone-acetaminophen 5-325 mg Tablet PO (22:03)
[2019-10-15] MEDS: OLANZapine 5 mg TABLET PO (22:04)
--- NOTE | 2019-10-15 23:04 | PC.NURSE ---
Patient tolerating blood transfusion. No reactions observed at this time.
[2019-10-15] MEDS: sodium chloride 0.9% (100 ml) 100 ML 20 ML (23:51)
[2019-10-16] VITALS (16 sets, daily range): BP systolic 89–162; BP diastolic 57–95; PULSE 106–130; RESP 17–33; TEMP 36.6–37.6; O2SAT 90–98
--- NOTE | 2019-10-16 00:22 | PC.NURSE ---
Blood transfusion complete. Patient tolerated well. Denies any discomfort. Reinforced transaction education and reportable s/s of such. Patient verbalized complete understanding. No distress observed.
[2019-10-16 00:54] LABS: Glucose Point of Care 117 mg/dL (70-110)
[2019-10-16] MEDS: ALPRAZolam 0.5 mg Tablet PO ×2 (00:57→22:40)
[2019-10-16] MEDS: vancomycin 750 MG in sodium chloride 0.9% 250 ML 250 MG IV (02:01)
[2019-10-16] MEDS: sodium chloride 0.9% 1,000 ML 125 ML IV (02:02)
[2019-10-16 04:01] LABS: Basophils # 0.1 10^3/uL (0.0-0.1); Basophils % 0.3 %; Eosinophils # 0.3 10^3/uL (0.0-0.8); Eosinophils % 1.5 %; Hematocrit 26.6 % (42.0-52.0); Hemoglobin 8.2 g/dL (11.7-16.6); Lymphocytes # 1.6 10^3/uL (0.8-4.8); Lymphocytes % 8.5 %; Mean Corpuscular HGB Conc 30.8 g/dL (30.0-36.0); Mean Corpuscular Hemoglobin 26.4 pg (28.0-34.0); Mean Corpuscular Volume 85.5 fL (80-94); Mean Platelet Volume 9.7 fL (7.4-10.4); Monocytes # 1.2 10^3/uL (0.2-0.9); Monocytes % 6.5 %; Neutrophils # 15.1 10^3/uL (1.8-7.7); Neutrophils % 82.4 %; Nucleated Red Blood Cells % 0 %; Platelet Count 323 10^3/cmm (130-400); Red Blood Count 3.11 10^6/uL (4.1-5.3); Red Cell Distribution Width 14.9 % (12.1-15.1); White Blood Count 18.3 10^3/uL (4.0-10.0)
[2019-10-16 04:36] LABS: Alanine Aminotransferase 14 U/L (0-41); Albumin Level 2.8 g/dL (3.5-5.2); Alkaline Phosphatase 105 IU/L (40-130); Aspartate Amino Transferase 10 U/L (0-40); Blood Urea Nitrogen 11 mg/dL (8-23); Carbon Dioxide 24 mmol/L (22-29); Chloride 98 mmol/L (98-107); Globulin 3.8 g/dL (1.3-4.6); Glomerular Filtration Rate 111.5 mL/min (90-130); Glucose 97 mg/dL (65-115); Magnesium 1.9 mg/dL (1.7-2.3); NT Pro B Type Natriuretic Pept 301 pg/mL (0-125); Osmolality Calculated 274 mOsm/kg (285-295); Phosphorus 3.8 mg/dL (2.5-4.5); Sodium 134 mmol/L (136-145); Total Bilirubin 0.5 mg/dL (0.15-1.2); Total Protein 6.6 g/dL (6.6-8.7)
--- NOTE | 2019-10-16 06:19 | PC.NURSE ---
Addendum entered by Jenniffer Cordova RN 10/16/19 06:36: Dr Spain aware of decreased blood pressure prior to Metoprolol administration. Original Note: Currently patient's heart at 130s to 170s. Patient denies any palpitations or discomforts. No distress observed. Spoke with Dr Spain and received order to continue home Metoprolol 12.5mg PO with first dose given now.
[2019-10-16] MEDS: metoprolol tartrate 25 mg Tablet 12.5 MG PO ×2 (06:34→16:20)
--- NOTE | 2019-10-16 07:20 | CTR_ITS ---
PROCEDURE INFORMATION: Exam: CT Angiography Chest With Contrast Exam date and time: 10/16/2019 2:30 PM Age: 69 years old Clinical indication: Abnormal findings; Abnormal diagnostic tests; Elevated d-dimer; Shortness of breath; Prior surgery; Surgery type: Gb; Additional info: Tachycardia, dyspnea TECHNIQUE: Imaging protocol: Computed tomographic angiography of the chest with intravenous contrast. 3D rendering: MIP and/or 3D reconstructed images were created by the technologist. Radiation optimization: All CT scans at this facility use at least one of these dose optimization techniques: automated exposure control; mA and/or kV adjustment per patient size (includes targeted exams where dose is matched to clinical indication); or iterative reconstruction. Contrast material: OMNI 350; Contrast volume: 61 ml; Contrast route: INTRAVENOUS (IV); COMPARISON: CT angio chest PE protcl [id number] 08/13/2019 4:51 PM RADIATION DOSE METRICS: Total DLP (mGy-cm): 559.34 FINDINGS: Tubes, catheters and devices: The left subclavian venous portacatheter tip is in the lower SVC. Pulmonary arteries: No pulmonary emboli. Aorta: Mild aortic arch and descending thoracic aortic atherosclerotic calcification without ectasia. Thyroid: The partially imaged bilateral thyroid lobes are unremarkable. Lungs: Interval increase in size of right apical and anterior upper chest mass, currently measuring approximately 8.9 x 7.8 x 16.8 cm. Mediastinal extension to the magaly is more conspicuous than on the preceding study (series 2, image 149). Central necrosis appears to be present within the mass (series 2, image 116). Right upper lobe bronchial occlusion, inter lobar bronchial narrowing, right middle lobe bronchial occlusion redemonstrated. Increased right middle lobe atelectasis. New right lower lobe upper anterolateral basilar segment 5.7 mm noncalcified pulmonary nodule. New right lower lobe anterior basilar segment inferior 4.3 mm noncalcified nodule. New left lower lobe anterolateral basilar segment 5 0.4 mm noncalcified pulmonary nodule. New lateral left upper lobe posterior segment subpleural 6.8 mm noncalcified pulmonary nodule. Interval increase in size of superior segment lingular posterior subpleural nodule measuring 8.2 mm, previously 3.6 mm. Interval increase in size of posterior apical noncalcified pulmonary nodule measuring 11.0 mm, previously 5.5 mm. Left lower lobe calcified pulmonary parenchymal granuloma. Pleural space: There is increased posterolateral pleural thickening Moderate right pleural effusion, new. Right posterior pulmonary partial passive atelectasis. Heart: The heart is normal in size and contour. Lymph nodes: No enlarged lymph nodes. Diaphragm: The right hemidiaphragm remains moderately elevated. Gallbladder and bile ducts: The gallbladder is surgically absent, with metallic clips in the gallbladder fossa. Spleen: Calcified splenic granuloma. Adrenals: Stable 13 mm right adrenal nodule. Stomach and bowel: Gastric fluid/gaseous distension. Bones/joints: Interval destructive changes anterolateral right 2nd rib (series 2, image 100). Similar findings involving the anterolateral right 3rd rib. Previous left shoulder coracoid process repair with orthopedic screw. Lower cervical spinal anterior fixation hardware. Soft tissues: Mild bilateral gynecomastia. CT/CT angio chest PE protcl [id number] IMPRESSION: 1. No pulmonary embolism identified. 2. Interval increase in size of right apical and anterior upper chest mass, with chest wall invasion of the anterolateral 2nd and 3rd ribs. 3. Increased right middle lobe atelectasis. 4. New bilateral noncalcified pulmonary nodules. 5. Interval increase in size of previous noncalcified pulmonary nodule. 6. Moderate right pleural effusion, new. 7. Stable 13 mm right adrenal nodule. 8. Gastric fluid/gaseous distension. 9 Prior cholecystectomy. Radiation Dose CTDIVOL = (mGy): DLP = 559.34 (mGy-cm)
--- NOTE | 2019-10-16 07:22 | PM.PN ---
Subjective Subjective: Interval history: The patient states he feels about the same as yesterday. He continues to have pain in his right upper back. Mild dyspnea. Mild cough. He denies any abdominal pain, nausea, vomiting, diarrhea, constipation. The patient says that he feels weak in general. Vitals/I&O/Wt Last Vital Signs Temp 98.8 F 10/16/19 03:22 Pulse 121 H 10/16/19 03:22 Resp 30 H 10/16/19 03:22 BP 89/61 10/16/19 03:22 Pulse Ox 98 10/16/19 03:22 10/15/19 10/16/19 10/16/19 22:59 06:59 14:59 Intake Total 100 / 350 1514.417 / 1864.417 Output Total 500 / 500 1050 / 1550 Balance -400 / -150 464.417 / 314.417 Weight last 48 hrs Weight 127 lb Physical Exam Narrative: EXAM NARRATIVE: General: Alert and oriented x3 Eyes: PERRLA, EOMI Mouth: Mucous membranes moist. Neck: No masses appreciated Cardiac: Tachycardia with distant heart sounds Lungs: Rhonchi noted in the right upper lung with decreased air entry bilaterally. No significant wheezes. Abdomen: Soft, nontender without hepatosplenomegaly. Extremities: No edema Data : 10/16/19 03:27 10/16/19 03:27 Micro: Microbiology 10/15/19 12:12 Blood Culture - Preliminary Blood SPECIMEN COLLECTED 10/15/19 12:05 Blood Culture - Preliminary Blood SPECIMEN COLLECTED A&P Assessment and plan (1) Pneumonia: Status: Acute (2) Anemia: Status: Acute (3) Sinus tachycardia: Status: Acute (4) Squamous cell lung cancer: Status: Acute Additional A&P Information 1. Sepsis secondary to pneumonia -the patient has signs of a right upper lobe pneumonia that is likely postobstructive secondary to his lung cancer. The patient recently failed a round of levofloxacin as an outpatient. We will treat him with IV Zosyn, vancomycin and levofloxacin. We can alter these medications if needed. Blood cultures are pending. We will get a sputum culture if able to produce one. The patient's white blood cell count is decreasing well. It may have been elevated partially secondary to dehydration as well. 2. Anemia -the patient's hemoglobin is decreased to 8.1. This is after 1 unit of blood. I will have them transfuse 1 more unit and recheck. Recheck CBC this afternoon. 3. Sinus tachycardia -the patient has sinus tachycardia and it has increased as high as 170 overnight. The patient did not receive his night dose of metoprolol and this may be the reason. The patient received his morning dose and his heart rate has come down to the 120s. Due to increased risk for pulmonary embolism, we will get a CT angios to rule out a PE. Other likely causes would be secondary to his pneumonia and underlying cancer. If it continues to be significantly elevated and we are not finding other causes, we may consider a cardiology consultation. 4. Squamous cell lung cancer -the patient has a stage IIIb squamous cell lung cancer in the right upper lobe. The patient has not received any chemo or radiation at this time. He will likely get treatment once his pneumonia is clearing. His prognosis overall is quite poor. 5. Pain management -the patient is currently taking hydrocodone for pain in his right upper back. The pain is likely secondary to the tumor. I will write for Percocet as he does not feel that the hydrocodone is helping sufficiently. We will be able to watch and see how he responds in terms of blood pressure this way while he is in the hospital. 6. Prophylaxis -Lovenox. Attestations Medical Necessity Statement*: The patient will be here for greater than 2 midnights due to treatment of the above issues. Coding Level of Care Code Acute Authors Motivational for [facility] Diagnoses Pneumonia J18.9 Anemia D64.9 Sinus tachycardia R00.0 Squamous cell lung cancer C34.90
[2019-10-16] MEDS: sertraline 100 mg Tablet 200 MG PO (08:07)
[2019-10-16] MEDS: ferrous sulfate EC 325 mg Tablet PO ×2 (08:08→16:20)
[2019-10-16] MEDS: multivitamin therapeutic Tablet 1 TAB PO (08:08)
[2019-10-16] MEDS: oxyCODONE-APAP 5-325 mg Tablet PO ×2 (08:17→16:25)
[2019-10-16] MEDS: sodium chloride 0.9% (100 ml) 100 ML 50 ML (09:33)
[2019-10-16] MEDS: sodium chloride 0.9% 1,000 ML 100 ML IV ×2 (12:10→22:40)
[2019-10-16 12:42] LABS: Coronavirus Lab Test PTC Negative
[2019-10-16 13:12] LABS: Vancomycin Trough 6.3 ug/mL (10-15)
--- NOTE | 2019-10-16 13:29 | PC.NURSE ---
NOTIFIED DR BURNS THAT PATIENT'S COVID TEST IS NEGATIVE.
[2019-10-16] MEDS: iohexol 350 mg/mL 100 mL Btl IV (14:48)
[2019-10-16] MEDS: vancomycin 1,000 MG in sodium chloride 0.9% 250 ML 250 MG IV (15:29)
[2019-10-16 15:54] LABS: Basophils # 0.1 10^3/uL (0.0-0.1); Basophils % 0.3 %; Eosinophils # 0.4 10^3/uL (0.0-0.8); Eosinophils % 1.9 %; Hemoglobin 10.3 g/dL (11.7-16.6); Lymphocytes # 1.6 10^3/uL (0.8-4.8); Lymphocytes % 8.7 %; Mean Corpuscular HGB Conc 30.3 g/dL (30.0-36.0); Mean Corpuscular Hemoglobin 25.2 pg (28.0-34.0); Mean Corpuscular Volume 83.3 fL (80-94); Mean Platelet Volume 9.6 fL (7.4-10.4); Monocytes # 1.3 10^3/uL (0.2-0.9); Monocytes % 6.9 %; Neutrophils # 14.8 10^3/uL (1.8-7.7); Neutrophils % 81.6 %; Nucleated Red Blood Cells % 0 %; Platelet Count 377 10^3/cmm (130-400); Red Blood Count 4.08 10^6/uL (4.1-5.3); Red Cell Distribution Width 14.9 % (12.1-15.1); White Blood Count 18.2 10^3/uL (4.0-10.0)
[2019-10-16] MEDS: enoxaparin 40 mg/0.4 mL Syringe SUBCUT (16:20)
[2019-10-16] MEDS: tamsulosin 0.4 mg Capsule PO (22:40)
[2019-10-16] MEDS: OLANZapine 10 mg TABLET PO (22:40)
[2019-10-16] MEDS: OLANZapine 5 mg TABLET PO (22:40)
--- NOTE | 2019-10-16 23:32 | PC.NURSE ---
Patient does not have any complaints at this time. Will monitor.
[2019-10-17] VITALS (11 sets, daily range): BP systolic 98–134; BP diastolic 67–85; PULSE 74–127; RESP 18–31; TEMP 36.6–36.9; O2SAT 90–96
--- NOTE | 2019-10-17 00:03 | PC.NURSE ---
Bedtime medications were late due to assisting with call lights and confused patients.
[2019-10-17] MEDS: vancomycin 1,000 MG in sodium chloride 0.9% 250 ML 250 MG IV ×2 (02:31→13:57)
[2019-10-17] MEDS: oxyCODONE-APAP 5-325 mg Tablet PO ×3 (04:00→20:27)
--- NOTE | 2019-10-17 04:01 | PC.NURSE ---
Patient placed on 1 L NC due to oxygen saturation of 89-90 percent.
[2019-10-17 04:29] LABS: Basophils # 0.1 10^3/uL (0.0-0.1); Basophils % 0.4 %; Eosinophils # 0.5 10^3/uL (0.0-0.8); Eosinophils % 2.6 %; Hematocrit 32.4 % (42.0-52.0); Hemoglobin 10.2 g/dL (11.7-16.6); Lymphocytes # 2.1 10^3/uL (0.8-4.8); Lymphocytes % 11.3 %; Mean Corpuscular HGB Conc 31.5 g/dL (30.0-36.0); Mean Corpuscular Hemoglobin 26.5 pg (28.0-34.0); Mean Corpuscular Volume 84.2 fL (80-94); Mean Platelet Volume 10.6 fL (7.4-10.4); Monocytes # 1.3 10^3/uL (0.2-0.9); Monocytes % 6.9 %; Neutrophils # 14.5 10^3/uL (1.8-7.7); Neutrophils % 77.9 %; Nucleated Red Blood Cells % 0 %; Platelet Count 391 10^3/cmm (130-400); Red Blood Count 3.85 10^6/uL (4.1-5.3); Red Cell Distribution Width 15.4 % (12.1-15.1); White Blood Count 18.6 10^3/uL (4.0-10.0)
[2019-10-17 04:52] LABS: Alanine Aminotransferase 15 U/L (0-41); Albumin Level 2.8 g/dL (3.5-5.2); Alkaline Phosphatase 136 IU/L (40-130); Anion Gap 15.6 (5-19); Aspartate Amino Transferase 11 U/L (0-40); Blood Urea Nitrogen 9 mg/dL (8-23); Calcium 8.5 mg/dL (8.5-10.5); Carbon Dioxide 23 mmol/L (22-29); Chloride 100 mmol/L (98-107); Globulin 4.4 g/dL (1.3-4.6); Glomerular Filtration Rate 111.5 mL/min (90-130); Glucose 100 mg/dL (65-115); Magnesium 1.9 mg/dL (1.7-2.3); Osmolality Calculated 276 mOsm/kg (285-295); Phosphorus 3.1 mg/dL (2.5-4.5); Potassium 3.6 mmol/L (3.5-5.1); Sodium 135 mmol/L (136-145); Total Bilirubin 0.3 mg/dL (0.15-1.2); Total Protein 7.2 g/dL (6.6-8.7)
--- NOTE | 2019-10-17 05:40 | PC.NURSE ---
Patient is currently resting with eyes closed.
--- NOTE | 2019-10-17 06:17 | PC.NURSE ---
Patient does not have any complaints at this time. Will monitor.
[2019-10-17 06:40] LABS: Glucose Point of Care 97 mg/dL (70-110)
[2019-10-17] MEDS: multivitamin therapeutic Tablet 1 TAB PO (08:14)
[2019-10-17] MEDS: ferrous sulfate EC 325 mg Tablet PO ×2 (08:14→17:19)
[2019-10-17] MEDS: metoprolol tartrate 25 mg Tablet 12.5 MG PO ×2 (08:14→17:19)
[2019-10-17] MEDS: sertraline 100 mg Tablet 200 MG PO (08:14)
[2019-10-17] MEDS: sodium chloride 0.9% 1,000 ML 100 ML IV (08:20)
--- NOTE | 2019-10-17 08:21 | PC.NURSE ---
IV fluids Fluids scanned late because prior bag was not empty yet.
--- NOTE | 2019-10-17 10:49 | P.PN_ITS ---
Subjective Subjective: Interval history: The patient states that his dyspnea is slightly improved from admission, however he still does have mild to moderate dyspnea. The patient denies any chest pains at this time. The patient states that the Percocet seemed to help with his overall pain in his right upper back. He denies any other concerns. Vitals/I&O/Wt Last Vital Signs Temp 98.3 F 10/17/19 07:30 Pulse 114 H 10/17/19 07:30 Resp 25 H 10/17/19 08:18 BP 114/75 10/17/19 07:30 Pulse Ox 92 10/17/19 08:18 10/16/19 10/17/19 10/17/19 22:59 06:59 14:59 Intake Total 1490 / 2960.000 650 / 3610.000 1785.000 / 1785.000 Output Total 1200 / 2425 950 / 3375 300 / 300 Balance 290 / 535.000 -300 / 625.860 1007.000 / 1485.000 Weight last 48 hrs Weight 130 lb 14.4 oz Weight 127 lb Physical Exam Narrative: EXAM NARRATIVE: General: Alert and oriented x3 Mouth: Mucous membranes moist. Neck: No masses appreciated Cardiac: Tachycardia with distant heart sounds Lungs: Rhonchi noted in the right upper lung with decreased air entry bilaterally. No significant wheezes. Abdomen: Soft, nontender without hepatosplenomegaly. Extremities: No edema Data : 10/17/19 03:55 10/17/19 03:55 Micro: Microbiology 10/15/19 12:12 Blood Culture - Preliminary Blood NEGATIVE TO DATE 10/15/19 12:05 Blood Culture - Preliminary Blood NEGATIVE TO DATE A&P Assessment and plan (1) Pneumonia: Status: Acute (2) Anemia: Status: Acute (3) Sinus tachycardia: Status: Acute (4) Squamous cell lung cancer: Status: Acute Additional A&P Information 1. Sepsis secondary to pneumonia -the patient has signs of a right upper lobe pneumonia that is likely postobstructive secondary to his lung cancer. The patient recently failed a round of levofloxacin as an outpatient. We will treat him with IV Zosyn, vancomycin and imipenem. We can alter these medications if needed. Blood cultures are negative so far. We will get a sputum culture if able to produce one. The patient's white blood cell count is stable from yesterday. 2. Anemia -the patient's hemoglobin is improved after 2 units of blood. We will continue to watch for further signs of this dropping. This is likely sec ondary to his cancer. 3. Sinus tachycardia -the patient has sinus tachycardia and this is likely se condary to his lung cancer. CTA did not show signs of a blood clot. Certainly pneumonia could be playing a part. As an outpatient his heart rate does tend to run in the 100-120 range. We will continue with metoprolol to help keep it in this range. We have not been able to increase his metoprolol dose secondary to blood pressure levels getting too low. Currently he seems to be well-hydrated. 4. Squamous cell lung cancer -the patient has a stage IIIb squamous cell lung cancer in the right upper lobe. The patient has not received any chemo or radiation at this time. He will likely get treatment once his pneumonia is clearing. His prognosis overall is quite poor. 5. Pain management -the patient's pain is well controlled with Percocet at this time. He states that it is doing a better job than the hydrocodone did. 6. Right-sided pleural effusion -the patient has a moderate sized pleural effusion on the right. At this time I do not feel that we need to drain it, however if it is worsening, or his dyspnea is worsening, we will need to plan to get this drained. This is likely secondary to his cancer. 7. Prophylaxis -Lovenox. Attestations Medical Necessity Statement*: The patient continues need inpatient care as we continue to treat his right upper lobe pneumonia. 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
[2019-10-17] MEDS: levofloxacin-dextrose 5 % 500 MG/100 ML PREMIX 100 MG IV (11:57)
--- NOTE | 2019-10-17 12:30 | PC.NURSE ---
Radiation Dr. Spain at bedside. Physician requests that nurse contact [facility] to schedule patient's radiation since patient missed his radiation appointment yesterday.
[2019-10-17 13:52] LABS: Vancomycin Trough 9.9 ug/mL (10-15)
--- NOTE | 2019-10-17 15:41 | PC.NURSE ---
Radiation update Radiation was not able to be scheduled for patient today. Dr. Spain notified. Physician requests that radiation be scheduled for Sunday, October 18.
--- NOTE | 2019-10-17 16:30 | PC.NURSE ---
Physician notification Patient exhibiting SOB, lungs course with crackles throughout, o2 sats 90% on RA. Dr. Spain notified of findings. Physician gave RBVO for RT assess and treat and oxygen per protocol. RT has been notified and will see patient.
[2019-10-17] MEDS: enoxaparin 40 mg/0.4 mL Syringe SUBCUT (17:18)
[2019-10-17] MEDS: ipratropium-albuterol 3 mL Neb INHALATION ×2 (18:00→20:46)
--- NOTE | 2019-10-17 19:40 | PC.NURSE ---
Rounding: Patient resting in bed. Patient is on 1L of oxygen saturating 96%. Patient denies any needs at this time. assessment completed.
[2019-10-17] MEDS: ALPRAZolam 0.5 mg Tablet PO (20:27)
[2019-10-17] MEDS: OLANZapine 10 mg TABLET PO (20:27)
[2019-10-17] MEDS: tamsulosin 0.4 mg Capsule PO (20:27)
[2019-10-17] MEDS: OLANZapine 5 mg TABLET PO (20:28)
[2019-10-18] VITALS (18 sets, daily range): BP systolic 105–151; BP diastolic 67–89; PULSE 113–131; RESP 16–32; TEMP 36.6–37.1; O2SAT 90–96
[2019-10-18] MEDS: vancomycin 1,000 MG in sodium chloride 0.9% 250 ML 250 MG IV ×2 (02:17→15:19)
[2019-10-18] MEDS: ipratropium-albuterol 3 mL Neb INHALATION ×5 (03:50→20:11)
[2019-10-18] MEDS: oxyCODONE-APAP 5-325 mg Tablet PO ×3 (04:55→21:11)
--- NOTE | 2019-10-18 05:46 | PC.NURSE ---
End of shift: Patient has had a uneventful shift. Patient has rested well. Patient heart rate has stayed between 115 to 125 bpm. No complaints of chest pain. Patient denies any needs at this time.
[2019-10-18 06:35] LABS: Basophils % 0.2 %; Eosinophils # 0.5 10^3/uL (0.0-0.8); Eosinophils % 2.6 %; Hematocrit 34.9 % (42.0-52.0); Hemoglobin 10.3 g/dL (11.7-16.6); Lymphocytes % 10.9 %; Mean Corpuscular HGB Conc 29.5 g/dL (30.0-36.0); Mean Corpuscular Hemoglobin 25.4 pg (28.0-34.0); Mean Corpuscular Volume 86.2 fL (80-94); Mean Platelet Volume 11.1 fL (7.4-10.4); Monocytes # 1.1 10^3/uL (0.2-0.9); Monocytes % 5.8 %; Neutrophils # 14.7 10^3/uL (1.8-7.7); Neutrophils % 79.8 %; Nucleated Red Blood Cells % 0 %; Red Blood Count 4.05 10^6/uL (4.1-5.3); Red Cell Distribution Width 15.4 % (12.1-15.1); White Blood Count 18.4 10^3/uL (4.0-10.0)
[2019-10-18 06:36] LABS: Platelet Count 299 10^3/cmm (130-400)
[2019-10-18 06:37] LABS: Slide Review Slide Review Perform
[2019-10-18 06:43] LABS: Alanine Aminotransferase 14 U/L (0-41); Alkaline Phosphatase 142 IU/L (40-130); Anion Gap 16.9 (5-19); Aspartate Amino Transferase 14 U/L (0-40); Blood Urea Nitrogen 10 mg/dL (8-23); Carbon Dioxide 24 mmol/L (22-29); Chloride 97 mmol/L (98-107); Globulin 4.2 g/dL (1.3-4.6); Glomerular Filtration Rate 111.5 mL/min (90-130); Glucose 102 mg/dL (65-115); Magnesium 1.9 mg/dL (1.7-2.3); Osmolality Calculated 274 mOsm/kg (285-295); Phosphorus 3.3 mg/dL (2.5-4.5); Potassium 3.9 mmol/L (3.5-5.1); Sodium 134 mmol/L (136-145); Total Bilirubin 0.2 mg/dL (0.15-1.2); Total Protein 7.2 g/dL (6.6-8.7)
[2019-10-18] MEDS: multivitamin therapeutic Tablet 1 TAB PO (08:39)
[2019-10-18] MEDS: sertraline 100 mg Tablet 200 MG PO (08:39)
[2019-10-18] MEDS: ferrous sulfate EC 325 mg Tablet PO ×2 (08:39→17:24)
[2019-10-18] MEDS: metoprolol tartrate 25 mg Tablet 12.5 MG PO (08:40)
--- NOTE | 2019-10-18 09:38 | PC.SOCIAL ---
Pg 2 IMM Explained to pt Pg 2 IMM. Pt verbally understands. Provided pt a copy. Signed, dated, & timed a copy & placed in pt's chart.
[2019-10-18] MEDS: enoxaparin 40 mg/0.4 mL Syringe SUBCUT (17:24)
[2019-10-18] MEDS: metoprolol tartrate 25 mg Tablet PO (17:25)
--- NOTE | 2019-10-18 17:30 | PC.NURSE ---
Patient reported to nurse symptoms of constipation. Prune juice was administered with breakfast. Patient was unsuccessful at producing a BM. Dr. Hidalgo notified. Physician gave telephone order for Miralax 17 gm PO daily PRN, RBVO.
[2019-10-18] MEDS: polyethylene glycol 3350 Pkt 17 gm PO (17:59)
--- NOTE | 2019-10-18 18:05 | P.PN_ITS ---
Subjective Subjective: Interval history: Patient states feeling much improved. He is able to get out of bed and walk around. He is currently off of any supplemental oxygen. States feeling much improved since the time he was first admitted. 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 Sepsis secondary to pneumonia -the patient has signs of a right upper lobe pneumonia that is likely postobstructive secondary to his lung cancer. The patient recently failed a round of levofloxacin as an outpatient. We can alter these medications if needed. Blood cultures are negative so far. We will get a sputum culture if able to produce one. The patient's white blood cell count is stable from yesterday. Unlikely that the postobstructive component will improve given findings on his recent bronchoscopy. He remains at high very high risk of recurrent pneumonias from time to time because of the postobstructive nature of this lesion. For now we will continue the imipenem. This will provide broad coverage for gram- negative gram-positive's and any anaerobes. Discontinue levofloxacin is unlikely to be an atypical pneumonia. Will check urine Legionella antigen to rule out . discontinue IV vancomycin. We will check a MRSA swab from the nares to see if he is potentially colonized with MRSA which may require vancomycin treatment in the future. Currently he is on antibiotics day 3. Sputum culture is pending. Blood culture remains negative to date. Leukocytosis at 18, appears to be patient has had slowly rising leukocytosis over the past month, which may in large part be contributed by obstructive nature of the lesion. 2. Anemia -the patient's hemoglobin is improved after 2 units of blood. We will continue to watch for further signs of this dropping. This is likely secondary to his cancer. 3. Sinus tachycardia -the patient has sinus tachycardia and this is likely secondary to his lung cancer. CTA did not show signs of a blood clot. Certainly pneumonia could be playing a part. As an outpatient his heart rate does tend to run in the 100-120 range. We will continue with metoprolol to help keep it in this range. We have not been able to increase his metoprolol dose secondary to blood pressure levels getting too low. Currently he seems to be well-hydrated. 4. Squamous cell lung cancer -the patient has a stage IIIb squamous cell lung cancer in the right upper lobe. Patient states he has thus far received about 5 cycles of radiation starting next week. He is scheduled for another cycle on Sunday. He will likely get treatment once his pneumonia is clearing, however on the flip side, the pneumonia is unlikely to improve unless his underlying obstruction/anatomical issues are addressed concurrently.. His prognosis overall is quite poor. 5. Pain management -the patient's pain is well controlled with Percocet at this time. He states that it is doing a better job than the hydrocodone did. 6. Right-sided pleural effusion -the patient has a moderate sized pleural effusion on the right. At this time I do not feel that we need to drain it, however if it is worsening, or his dyspnea is worsening, we will need to plan to get this drained. This is likely secondary to his cancer. 7. Prophylaxis -Lovenox. 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
--- NOTE | 2019-10-18 18:39 | PC.NURSE ---
Patient had uneventful shift. Patient states that his feelings of shortness of breath has improved. Patient has been up to chair for meals and bathed himself today with minimal assist. Patient maintained o2 sats without supplemental o2 throughout shift. Voicemail was left at [facility] to schedule radiation appointment for Sunday.
--- NOTE | 2019-10-18 19:02 | PC.NURSE ---
Rounding: Patient resting in bed and watching tv. Patient denies any pain at this time. Will continue to monitor.
[2019-10-18] MEDS: OLANZapine 5 mg TABLET PO (21:10)
[2019-10-18] MEDS: OLANZapine 10 mg TABLET PO (21:10)
[2019-10-18] MEDS: tamsulosin 0.4 mg Capsule PO (21:11)
[2019-10-18] MEDS: ALPRAZolam 0.5 mg Tablet PO (21:11)
[2019-10-19] VITALS (12 sets, daily range): BP systolic 107–136; BP diastolic 66–95; PULSE 112–121; RESP 18–24; TEMP 36.6–37.2; O2SAT 90–92
[2019-10-19] MEDS: oxyCODONE-APAP 5-325 mg Tablet PO ×3 (04:47→20:33)
[2019-10-19 04:49] LABS: Basophils % 0.2 %; Eosinophils # 0.5 10^3/uL (0.0-0.8); Eosinophils % 2.7 %; Hematocrit 31.9 % (42.0-52.0); Hemoglobin 9.4 g/dL (11.7-16.6); Lymphocytes # 1.5 10^3/uL (0.8-4.8); Lymphocytes % 8.5 %; Mean Corpuscular HGB Conc 29.5 g/dL (30.0-36.0); Mean Corpuscular Hemoglobin 25.1 pg (28.0-34.0); Mean Corpuscular Volume 85.1 fL (80-94); Neutrophils # 14.1 10^3/uL (1.8-7.7); Neutrophils % 81.8 %; Nucleated Red Blood Cells % 0 %; Platelet Count 334 10^3/cmm (130-400); Red Blood Count 3.75 10^6/uL (4.1-5.3); Red Cell Distribution Width 15.4 % (12.1-15.1); White Blood Count 17.2 10^3/uL (4.0-10.0)
[2019-10-19 05:12] LABS: Alanine Aminotransferase 19 U/L (0-41); Albumin Level 2.5 g/dL (3.5-5.2); Alkaline Phosphatase 135 IU/L (40-130); Anion Gap 15.8 (5-19); Aspartate Amino Transferase 20 U/L (0-40); Blood Urea Nitrogen 10 mg/dL (8-23); Calcium 8.6 mg/dL (8.5-10.5); Carbon Dioxide 24 mmol/L (22-29); Chloride 98 mmol/L (98-107); Globulin 4.2 g/dL (1.3-4.6); Glomerular Filtration Rate 133.2 mL/min (90-130); Glucose 94 mg/dL (65-115); Osmolality Calculated 274 mOsm/kg (285-295); Potassium 3.8 mmol/L (3.5-5.1); Sodium 134 mmol/L (136-145); Total Bilirubin 0.2 mg/dL (0.15-1.2); Total Protein 6.7 g/dL (6.6-8.7)
--- NOTE | 2019-10-19 05:51 | PC.NURSE ---
End of shift: Patient has had uneventful shift and has rested well. Patient has had some back pain. No complaints of shortness of breath. Heart rate has been between 112-125 bpm.
[2019-10-19] MEDS: ferrous sulfate EC 325 mg Tablet PO ×2 (08:25→17:31)
[2019-10-19] MEDS: sertraline 100 mg Tablet 200 MG PO (08:25)
[2019-10-19] MEDS: multivitamin therapeutic Tablet 1 TAB PO (08:25)
[2019-10-19] MEDS: metoprolol tartrate 25 mg Tablet 12.5 MG PO ×2 (08:25→17:31)
--- NOTE | 2019-10-19 16:23 | PC.NURSE ---
Rt reports patient refusal of breathing treatments; patient asked about refusal patient states I don't feel like they are doing much for me. patient is not short of breath at this time no cough.
[2019-10-19] MEDS: enoxaparin 40 mg/0.4 mL Syringe SUBCUT (17:30)
--- NOTE | 2019-10-19 17:40 | PC.NURSE ---
patient has had a very poor appetite this shift only drinking his ensure with meals refusing to eat anything.
[2019-10-19] MEDS: ipratropium-albuterol 3 mL Neb INHALATION (20:02)
--- NOTE | 2019-10-19 20:09 | PC.NURSE ---
REPORT RECEIVED FROM OFF GOING SHIFT. PT C/O 10/23 PAIN IN LOWER BACK. PT REQUEST THAT THIS NURSE BRING PRN PERCOCET WITH NIGHT TIME MEDS. THIS NURSE INFORMED THE PT THAT THEY COULD HAVE PAIN MEDS NOW AND PT SAID NO JUST BRING THEM WITH MY NIGHT MEDS. PT ALSO STATES THAT ROOM IS TOO HOT. THIS NURSE ADJUSTED TEMPERATURE FOR THE ROOM AND SHOWED THE PT HOW TO USE THE REMOTE FOR TEMPERATURE CONTROL. WILL CONTINUE TO MONITOR.
[2019-10-19] MEDS: tamsulosin 0.4 mg Capsule PO (20:32)
[2019-10-19] MEDS: OLANZapine 5 mg TABLET 15 MG PO (20:32)
--- NOTE | 2019-10-19 21:17 | P.PN_ITS ---
Subjective Subjective: Interval history: Patient seen and examined earlier this morning. Feels well overall, no new symptoms. WBC stable at 17. Afebrile. refusing some of his nebulizations today. C/o pain over right chest wall. remains on room air Medications: Reviewed: Yes Vitals/I&O/Wt Last Vital Signs Temp 98.9 F 10/19/19 19:20 Pulse 119 H 10/19/19 20:10 Resp 24 H 10/19/19 20:33 BP 136/95 10/19/19 19:20 Pulse Ox 92 10/19/19 20:33 10/19/19 10/19/19 10/19/19 06:59 14:59 22:59 Intake Total 300 / 2550 460 / 460 460 / 920 Output Total 400 / 1325 200 / 200 520 / 720 Balance -100 / 1225 260 / 260 -60 / 200 Weight last 48 hrs Weight 59.33 kg Weight 59.012 kg Physical Exam Narrative: EXAM NARRATIVE: GEN: Awake, alert and oriented, no acute distress CVS: S1S2 N RS: Reduced air entry right upper lobe Abd: Soft, nt/nd , bs+ 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 Sepsis secondary to pneumonia -the patient has signs of a right upper lobe pneumonia that is likely postobstructive secondary to his lung cancer. The patient recently failed a round of levofloxacin as an outpatient. We can alter these medications if needed. Blood cultures are negative so far. Sputum cx with polymicrobial gram stain, likely to represent oral todd, awaiting final cultures. The patient's white blood cell count is stable from yesterday. Unlikely that the postobstructive component will improve given findings on his recent bronchoscopy unless underlying mass significantly changes. Unfortunately, he remains at high very high risk of recurrent pneumonias from time to time because of the postobstructive nature of this lesion. For now we will continue the imipenem. This will provide broad coverage for gram-negative gram-positive's and any anaerobes. Discontinued levofloxacin as is unlikely to be an atypical pneumonia. Will check urine Legionella antigen to rule out Bacterial antigen panel negative. discontinue IV vancomycin as MRSA nares screen negative. Currently he is on antibiotics day 4. Blood culture remains negative to date. Leukocytosis at 17,stable, appears to be patient has had slowly rising leukocytosis over the past month, which may in large part be contributed by obstructive nature of the lesion. 2. Anemia -the patient's hemoglobin is improved after 2 units of blood. currently at 9.4, mildly dropped since yesterday, We will continue to watch for further signs of this dropping. This is likely secondary to his cancer. 3. Sinus tachycardia -the patient has sinus tachycardia and this is likely secondary to his lung cancer. CTA did not show signs of a blood clot. Certainly pneumonia could be playing a part. As an outpatient his heart rate does tend to run in the 100-120 range. We will continue with metoprolol to help keep it in this range. We have not been able to increase his metoprolol dose secondary to blood pressure levels getting too low. Currently he seems to be well-hydrated. 4. Squamous cell lung cancer -the patient has a stage IIIb squamous cell lung cancer in the right upper lobe. Patient states he has thus far received about 5 cycles of radiation starting last week. He is scheduled for another cycle on Sunday. He will likely get treatment once his pneumonia is clearing, however on the flip side, the pneumonia is unlikely to improve unless his underlying obstruction/anatomical issues are addressed concurrently.. His prognosis overall is quite poor. 5. Pain management -the patient's pain is well controlled with Percocet at this time. He states that it is doing a better job than the hydrocodone did. add lidocaine patch to see if it helps 6. Right-sided pleural effusion -the patient has a moderate sized pleural effusion on the right. At this time I do not feel that we need to drain it, how ever if it is worsening, or his dyspnea is worsening, we will need to plan to get this drained. This is likely secondary to his cancer. 7. Prophylaxis -Lovenox. Attestations Medical Necessity Statement*: planned for radiation treatment tomorrow Coding Level of Care Code Acute Range Technician for [facility] Fwd Diagnoses Pneumonia J18.9 Anemia D64.9 Sinus tachycardia R00.0 Squamous cell lung cancer C34.90
[2019-10-20] VITALS (16 sets, daily range): BP systolic 96–144; BP diastolic 65–99; PULSE 79–148; RESP 16–31; TEMP 36.6–37.2; O2SAT 90–97
--- NOTE | 2019-10-20 06:19 | PC.NURSE ---
PT HAD AN UNEVENTFUL NIGHT. PT APPEARED TO BE SLEEPING MOST OF THE NIGHT. IV IN LEFT FA WAS REMOVED WITH CATHETER TIP INTACT. WILL GIVE REPORT TO ON COMING SHIFT.
--- NOTE | 2019-10-20 07:19 | PC.NURSE ---
Patient spilled urine in bed after using urinal. Total linen change performed. Patient in bathroom cleaning self up and attempting to have a BM. No further needs identified at this time.
--- NOTE | 2019-10-20 08:03 | PC.NURSE ---
Patient refused breakfast stating he just doesn't have an appetite. Nurse asked patient if he would drink his ensure. Patient was agreeable. Nurse to continue to monitor.
[2019-10-20] MEDS: sertraline 100 mg Tablet 200 MG PO (08:16)
[2019-10-20] MEDS: ferrous sulfate EC 325 mg Tablet PO ×2 (08:17→17:59)
[2019-10-20] MEDS: oxyCODONE-APAP 5-325 mg Tablet PO ×3 (08:17→20:47)
[2019-10-20] MEDS: metoprolol tartrate 25 mg Tablet 12.5 MG PO ×2 (08:18→17:59)
[2019-10-20] MEDS: multivitamin therapeutic Tablet 1 TAB PO (08:18)
[2019-10-20] MEDS: lidocaine 5% Patch 1 PATCH TOPICAL (08:19)
[2019-10-20] MEDS: polyethylene glycol 3350 Pkt 17 gm PO (08:23)
[2019-10-20] MEDS: ipratropium-albuterol 3 mL Neb INHALATION ×3 (08:27→15:26)
--- NOTE | 2019-10-20 09:58 | PC.NURSE ---
Patient to radiation. Transported by [facility]. Patient stable at this time.
--- NOTE | 2019-10-20 10:00 | XRR_ITS ---
PROCEDURE INFORMATION: Exam: XR Chest, 2 Views Exam date and time: 10/20/2019 6:34 PM Age: 69 years old Clinical indication: Dyspnea; Prior surgery; Additional info: Dyspnea, pneumonia, pleural effusion TECHNIQUE: Imaging protocol: XR of the chest Views: 2 views. COMPARISON: CR XR chest 1V portable [id number] 10/15/2019 12:43 PM FINDINGS: Tubes, catheters and devices: Chest port via the left subclavian approach with the tip overlying the superior vena cava. Lungs: Dense right hilum. Airspace consolidation right upper lobe. Volume loss with elevation right hemidiaphragm. Subpulmonic effusion. Left lung is well aerated. Pleural space: See Lungs finding. Heart/Mediastinum: Unremarkable. No cardiomegaly. Bones/joints: Prior surgical fixation of the caudal aspect of the cervical spine. XR/XR chest 2V* [id number] IMPRESSION: 1. Dense right hilum. Airspace consolidation right upper lobe. Volume loss with elevation right hemidiaphragm. Subpulmonic effusion. 2. Left lung is well aerated.
--- NOTE | 2019-10-20 10:46 | PC.NURSE ---
Patient back in room from radiation. VS stable, no changes in condition. Nurse to continue to monitor.
[2019-10-20] MEDS: ondansetron 2 mg/ML SDV 2 mL 4 MG IVP (11:44)
--- NOTE | 2019-10-20 11:54 | PC.NURSE ---
Patient refused lunch stating he was nauseous. Zofran administered. Nurse to continue to monitor.
--- NOTE | 2019-10-20 12:34 | PC.SOCIAL ---
IMM Updated Updated pt on Pg 2 IMM. Pt verbally understands. Provided pt a copy. Signed, dated, & timed the copy in pt's chart.
[2019-10-20 12:42] LABS: Basophils # 0.1 10^3/uL (0.0-0.1); Basophils % 0.4 %; Eosinophils # 0.1 10^3/uL (0.0-0.8); Eosinophils % 0.3 %; Hematocrit 31.3 % (42.0-52.0); Hemoglobin 9.5 g/dL (11.7-16.6); Lymphocytes % 5.2 %; Mean Corpuscular HGB Conc 30.4 g/dL (30.0-36.0); Mean Corpuscular Hemoglobin 26.1 pg (28.0-34.0); Mean Platelet Volume 9.5 fL (7.4-10.4); Monocytes % 5.1 %; Nucleated Red Blood Cells % 0 %; Platelet Count 349 10^3/cmm (130-400); Red Blood Count 3.64 10^6/uL (4.1-5.3); Red Cell Distribution Width 15.5 % (12.1-15.1); White Blood Count 19.3 10^3/uL (4.0-10.0)
[2019-10-20 13:19] LABS: Alanine Aminotransferase 24 U/L (0-41); Albumin Level 2.8 g/dL (3.5-5.2); Alkaline Phosphatase 143 IU/L (40-130); Anion Gap 16.8 (5-19); Aspartate Amino Transferase 19 U/L (0-40); Blood Urea Nitrogen 12 mg/dL (8-23); Calcium 8.8 mg/dL (8.5-10.5); Carbon Dioxide 26 mmol/L (22-29); Chloride 96 mmol/L (98-107); Globulin 4.1 g/dL (1.3-4.6); Glomerular Filtration Rate 133.2 mL/min (90-130); Glucose 148 mg/dL (65-115); Osmolality Calculated 279 mOsm/kg (285-295); Potassium 3.8 mmol/L (3.5-5.1); Sodium 135 mmol/L (136-145); Total Bilirubin 0.2 mg/dL (0.15-1.2); Total Protein 6.9 g/dL (6.6-8.7)
--- NOTE | 2019-10-20 16:50 | PM.PN ---
Subjective Subjective: Interval history: The patient felt nauseous this morning, however is feeling little better today. The patient had some constipation that improved with MiraLAX. The patient did receive radiation and had no complications with this. The patient continues to have some dyspnea. Medications: Reviewed: Yes Vitals/I&O/Wt Last Vital Signs Temp 98.4 F 10/20/19 15:04 Pulse 109 H 10/20/19 15:32 Resp 16 10/20/19 15:32 BP 108/68 10/20/19 15:04 Pulse Ox 92 10/20/19 15:32 10/20/19 10/20/19 10/20/19 06:59 14:59 22:59 Intake Total 450 / 1370 460 / 460 Output Total 1100 / 1820 450 / 450 625 / 1075 Balance -650 / -450 -625 / -615 Weight last 48 hrs Weight 130 lb 12.8 oz Physical Exam Narrative: EXAM NARRATIVE: General: Alert and oriented x3 Mouth: Mucous membranes moist. Neck: No masses appreciated Cardiac: Tachycardia with distant heart sounds Lungs: Decreased air entry in the right lower lung. Mild rhonchi noted in the right mid and upper lung. Abdomen: Soft, nontender without hepatosplenomegaly. Extremities: No edema Data : 10/20/19 11:50 10/20/19 11:50 Micro: Microbiology 10/15/19 12:12 Blood Culture - Final Blood NO GROWTH AFTER 5 DAYS 10/15/19 12:05 Blood Culture - Final Blood NO GROWTH AFTER 5 DAYS 10/17/19 17:45 Gram Stain - Final Sputum - Expectorated Sputum Sputum Culture - Preliminary 10/18/19 18:30 MRSA Culture - Final Nose A&P Assessment and plan (1) Pneumonia: Status: Acute (2) Anemia: Status: Acute (3) Sinus tachycardia: Status: Acute (4) Squamous cell lung cancer: Status: Acute Additional A&P Information 1. Sepsis secondary to pneumonia -the patient has signs of a right upper lobe pneumonia that is likely postobstructive secondary to his lung cancer. The patient is currently on imipenem and symptomatically improving, however continuing to have some dyspnea with exertion and his labs have not improved significantly recently. I agree that the patient's pneumonia will likely not improve until the obstruction is relieved either with radiation, chemo or a stent. Continue with imipenem for now and look for discharge over the next 1 to 2 days depending on how he is doing. 2. Anemia -the patient's hemoglobin is improved after 2 units of blood. We will continue to watch for further signs of this dropping. This is likely secondary to his cancer. 3. Sinus tachycardia -the patient has sinus tachycardia and this is likely secondary to his lung cancer. CTA did not show signs of a blood clot. Certainly pneumonia could be playing a part. As an outpatient his heart rate does tend to run in the 100-120 range. We will continue with metoprolol to help keep it in this range. We have not been able to increase his metoprolol dose secondary to blood pressure levels getting too low. Currently he seems to be well-hydrated. 4. Squamous cell lung cancer -the patient has a stage IIIb squamous cell lung cancer in the right upper lobe. The patient received radiation today. He will receive this daily this week. Continue with treatments per oncology. 5. Pain management -the patient's pain is well controlled with Percocet at this time. Lidocaine patch is helping with the pain on his back. 6. Right-sided pleural effusion -the patient has a moderate sized pleural effusion on the right. Will get a repeat chest x-ray today to see if this is worsening. If it is stable, we will hold off on draining it, however if it is worsening, we may consider draining. 7. Prophylaxis -Lovenox. Attestations Medical Necessity Statement*: The patient continues need inpatient therapy with IV antibiotics. Plan for discharge home over the next 1 to 2 days depending on his course. 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
--- NOTE | 2019-10-20 18:15 | PC.NURSE ---
Addendum entered by Annamarie Su 10/20/19 18:39: Dr. Spain contacted nurse and gave telephone order for Lovenox dose to be discontinued. Physician ordered Heparin 5000 units subq q8 hours to replace lovenox. RBVO. Original Note: Lovenox administration delay Nurse clarified lovenox administration with Dr. Spain as physician is tentatively planning a thoracentesis if the chest x-ray depicts worsening of the pleural effusion. Physician gave verbal order for nurse to administer dose of lovenox as ordered.
[2019-10-20] MEDS: heparin 5,000 unit/mL INJ 1 mL 5000 UNIT SUBCUT (20:48)
[2019-10-20] MEDS: tamsulosin 0.4 mg Capsule PO (20:48)
[2019-10-20] MEDS: OLANZapine 5 mg TABLET 15 MG PO (20:48)
--- NOTE | 2019-10-20 21:16 | PC.NURSE ---
Rounding: Patient resting in bed. Remains alert and oriented. Patient denies any needs at this time. Will continue to monitor.
[2019-10-21] VITALS (11 sets, daily range): BP systolic 96–111; BP diastolic 58–76; PULSE 78–119; RESP 14–22; TEMP 36.6–36.8; O2SAT 90–98
[2019-10-21] MEDS: oxyCODONE-APAP 5-325 mg Tablet PO ×2 (03:13→09:58)
[2019-10-21] MEDS: heparin 5,000 unit/mL INJ 1 mL 5000 UNIT SUBCUT (05:20)
--- NOTE | 2019-10-21 05:38 | PC.NURSE ---
End of shift: Patient has had a uneventful shift. Patient has rested this shift. Patient has had pain medication twice for back pain. No complaints of shortness of breath. Will continue to monitor.
[2019-10-21 05:55] LABS: Basophils % 0.3 %; Eosinophils # 0.4 10^3/uL (0.0-0.8); Eosinophils % 2.9 %; Hematocrit 31.4 % (42.0-52.0); Hemoglobin 9.4 g/dL (11.7-16.6); Lymphocytes % 6.5 %; Mean Corpuscular HGB Conc 29.9 g/dL (30.0-36.0); Mean Corpuscular Hemoglobin 25.8 pg (28.0-34.0); Mean Platelet Volume 9.6 fL (7.4-10.4); Monocytes # 0.9 10^3/uL (0.2-0.9); Monocytes % 5.7 %; Neutrophils # 12.9 10^3/uL (1.8-7.7); Neutrophils % 83.9 %; Nucleated Red Blood Cells % 0 %; Platelet Count 334 10^3/cmm (130-400); Red Blood Count 3.65 10^6/uL (4.1-5.3); Red Cell Distribution Width 15.5 % (12.1-15.1); White Blood Count 15.4 10^3/uL (4.0-10.0)
[2019-10-21 06:39] LABS: Alanine Aminotransferase 20 U/L (0-41); Albumin Level 2.7 g/dL (3.5-5.2); Alkaline Phosphatase 117 IU/L (40-130); Anion Gap 12.7 (5-19); Aspartate Amino Transferase 16 U/L (0-40); Blood Urea Nitrogen 13 mg/dL (8-23); Calcium 9.3 mg/dL (8.5-10.5); Carbon Dioxide 27 mmol/L (22-29); Chloride 100 mmol/L (98-107); Globulin 3.7 g/dL (1.3-4.6); Glomerular Filtration Rate 111.5 mL/min (90-130); Glucose 90 mg/dL (65-115); Osmolality Calculated 278 mOsm/kg (285-295); Potassium 3.7 mmol/L (3.5-5.1); Sodium 136 mmol/L (136-145); Total Bilirubin 0.2 mg/dL (0.15-1.2); Total Protein 6.4 g/dL (6.6-8.7)
--- NOTE | 2019-10-21 07:31 | P.PN_ITS ---
Subjective Subjective: Interval history: The patient states that he is feeling well overall. He continues to have some pain, however it is controlled. The patient denies significant dyspnea at rest. Medications: Reviewed: Yes Vitals/I&O/Wt Last Vital Signs Temp 97.9 F 10/21/19 07:18 Pulse 110 H 10/21/19 07:18 Resp 20 H 10/21/19 07:18 BP 110/69 10/21/19 07:18 Pulse Ox 90 10/21/19 07:18 10/20/19 10/21/19 10/21/19 22:59 06:59 14:59 Intake Total 460 / 920 400 / 1320 Output Total 625 / 1075 650 / 1725 200 / 200 Balance -165 / -155 -250 / -405 -200 / -200 Physical Exam Narrative: EXAM NARRATIVE: General: Alert and oriented x3 Mouth: Mucous membranes moist. Neck: No masses appreciated Cardiac: Tachycardia with distant heart sounds Lungs: Decreased air entry in the right lower lung, however slightly improved from yesterday. Mild rhonchi noted in the right lower, mid and upper lung. Abdomen: Soft, nontender without hepatosplenomegaly. Extremities: No edema Data : 10/21/19 04:43 10/21/19 04:43 Micro: Microbiology 10/15/19 12:12 Blood Culture - Final Blood NO GROWTH AFTER 5 DAYS 10/15/19 12:05 Blood Culture - Final Blood NO GROWTH AFTER 5 DAYS 10/17/19 17:45 Gram Stain - Final Sputum - Expectorated Sputum Sputum Culture - Preliminary A&P Assessment and plan (1) Pneumonia: Status: Acute (2) Anemia: Status: Acute (3) Sinus tachycardia: Status: Acute (4) Squamous cell lung cancer: Status: Acute Additional A&P Information 1. Sepsis secondary to pneumonia -the patient has signs of a right upper lobe pneumonia that is likely postobstructive secondary to his lung cancer. The patient is currently on imipenem and symptomatically improving, however continuing to have some dyspnea with exertion. His white blood cell count is starting to trend downwards. I agree that the patient's pneumonia will likely not improve until the obstruction is relieved either with radiation, chemo or a stent. Continue with imipenem for now and look for discharge over the next 1 to 2 days depending on how he is doing. 2. Anemia -the patient's hemoglobin is stable after 2 units of blood. 3. Sinus tachycardia -the patient has sinus tachycardia and this is likely secondary to his lung cancer. CTA did not show signs of a blood clot. Certainly pneumonia could be playing a part. As an outpatient his heart rate does tend to run in the 100-120 range. We will continue with metoprolol to help keep it in this range. We have not been able to increase his metoprolol dose secondary to blood pressure levels getting too low. Currently he seems to be well-hydrated. 4. Squamous cell lung cancer -the patient has a stage IIIb squamous cell lung cancer in the right upper lobe. The patient received radiation today. He will receive this daily this week. Continue with treatments per oncology. 5. Pain management -the patient's pain is well controlled with Percocet at this time. Lidocaine patch is helping with the pain on his back. 6. Right-sided pleural effusion -the patient has a moderate sized pleural ef fusion on the right. His repeat chest x-ray shows signs of a likely elevated hemidiaphragm. I will discuss with radiology today to see if they feel that this is a significant effusion that could be drained or not. If so, we will look at draining as he does have dyspnea with exertion. If not, we will likely look at discharge home as he is more stable than before. 7. Prophylaxis -Lovenox. Attestations Medical Necessity Statement*: The patient is currently hospitalized for the above issues. We will look for discharge home soon depending on the results of the chest x-ray. Coding Level of Care Code Acute [facility] for [facility] [place] Diagnoses Pneumonia J18.9 Anemia D64.9 Sinus tachycardia R00.0 Squamous cell lung cancer C34.90
--- NOTE | 2019-10-21 08:50 | P.DS_ITS ---
Discharge Providers Date of Admission: 10/15/19 13:15 Date of Discharge: October 21, 2019 Attending Provider at Admission: Silverio Spain MD Attending Provider at Discharge: Brianna Hidalgo MD Primary Care Provider: Silverio Spain MD Diagnoses at Discharge Discharge Diagnosis (1) Pneumonia: Status: Acute (2) Anemia: Status: Acute (3) Sinus tachycardia: Status: Acute (4) Squamous cell lung cancer: Status: Acute Reason for Visit Reason for Visit: DIRECT ADMIT Hospital Course Hospital Course: Patient was admitted with postobstructive pneumonia secondary to lung cancer. The patient had a significantly elevated white blood cell count and failed outpatient treatment with levofloxacin. The patient was continuing t o worsen, so was admitted for IV therapy. He was initially started on Zosyn, levofloxacin and vancomycin. After 2 days, he did not make significant improvement, so Zosyn was changed to imipenem. With this therapy he began to improve. The vancomycin and levofloxacin were discontinued. Imipenem was continued for total of 5 days IV. He will be discharged on Cefdinir for further treatment. The patient's white blood cell count has decreased to 15 from 26. It is unlikely that his pneumonia will completely clear until his tumor has shrunk. Continue with radiation and hopefully be able to start chemotherapy will be the best chance at this clearing. The patient did have a moderate pleural effusion and I discussed this case with the radiologist who felt that there was not enough there to be able to drain without the patient having significant risk from it. I am in agreement. The patient has no significant dyspnea at rest, however with exertion he does have dyspnea. We will need to c lishainue to follow for worsening of this and he may end up needing this fluid drained at some point. The patient has done well without oxygen so far, however he also may need oxygen at some point. The patient was also found to be anemic upon presentation and he was given 2 units of blood. He responded well to this and his blood count did maintain. The likely underlying causes his cancer. He will continue to take iron supplement to help with this. Overall patient is improved compared to when he was admitted. He continues to have some tachycardia which is stable and likely secondary to his tumor. His baseline rate at this time is in the 1 teens to 120s with metoprolol 12.5 mg twice a day. The patient is in agreement with discharge home at this time. All questions were answered. Physical Exam Narrative: EXAM NARRATIVE: General: Alert and oriented x3 Mouth: Mucous membranes moist. Neck: No masses appreciated Cardiac: Tachycardia with distant heart sounds Lungs: Decreased air entry in the right lower lung, however slightly improved from yesterday. Mild rhonchi noted in the right lower, mid and upper lung. Abdomen: Soft, nontender without hepatosplenomegaly. Extremities: No edema Discharge Data Data Completed and Pending: Completed Studies During Hospitalization Category Date Time Status CT angio chest PE protcl 40135 Rout ine Cat Scan 10/16/19 07:20 Completed XR chest 1V radha ble 55721 Stat Exams 10/15/19 11:54 Completed XR chest 2V* 7104 6 Routine Exams 10/20/19 10:00 Completed Pending at discharge Category Date Time Status Legionella Antige n STAT Routine Lab 10/19/19 21:22 Uncollected Sputum Culture an d Gram Stain Routi ne Lab 10/17/19 17:45 Results Labs from last 24 hours 10/21/19 10/21/19 10/20/19 04:43 04:43 11:50 WBC 15.4 H RBC 3.65 L Hgb 9.4 L Hct 31.4 L MCV 86.0 MCH 25.8 L MCHC 29.9 L RDW 15.5 H Plt Count 334 MPV 9.6 Neut % (Auto) 83.9 Lymph % (Auto) 6.5 [place] % (Auto) 5.7 Eos % (Auto) 2.9 Baso % (Auto) 0.3 Neut # (Auto) 12.9 H Lymph # (Auto) 1.0 [place] # (Auto) 0.9 Eos # (Auto) 0.4 Baso # (Auto) 0.0 Nucleated RBC % (a uto) 0 Nucleated RBCs # 0.0 Sodium 136 135 L Potassium 3.7 3.8 Chloride 100 96 L Carbon Dioxide 27 26 Anion Gap 12.7 16.8 BUN 13 12 Creatinine 0.7 0.6 L GFR Calculation 111.5 133.2 H Glucose 90 148 H Calculated Osmolal ity 278 L 279 L Calcium 9.3 8.8 Total Bilirubin 0.2 0.2 AST 16 19 ALT 20 24 Alkaline Phosphata se 117 143 H C-React Prot High Sens 15.430 H 17.270 H Total Protein 6.4 L 6.9 Albumin 2.7 L 2.8 L Globulin 3.7 4.1 10/20/19 11:50 WBC 19.3 H RBC 3.64 L Hgb 9.5 L Hct 31.3 L MCV 86.0 MCH 26.1 L MCHC 30.4 RDW 15.5 H Plt Count 349 MPV 9.5 Neut % (Auto) 88.0 Lymph % (Auto) 5.2 [place] % (Auto) 5.1 Eos % (Auto) 0.3 Baso % (Auto) 0.4 Neut # (Auto) 17.0 H Lymph # (Auto) 1.0 [place] # (Auto) 1.0 H Eos # (Auto) 0.1 Baso # (Auto) 0.1 Nucleated RBC % (a uto) 0 Nucleated RBCs # 0.0 Sodium Potassium Chloride Carbon Dioxide Anion Gap BUN Creatinine GFR Calculation Glucose Calculated Osmolal ity Calcium Total Bilirubin AST ALT Alkaline Phosphata se C-React Prot High Sens Total Protein Albumin Globulin Vitals: Last Vital Signs Temp 97.9 F 10/21/19 07:18 Pulse 110 H 10/21/19 07:18 Resp 20 H 10/21/19 07:18 BP 110/69 10/21/19 07:18 Pulse Ox 90 10/21/19 07:18 Discharge Plan Discharge Patient Disposition: Home, Self-Care Condition: Stable Prescriptions: New oxycodone-acetaminophen 5-325 mg Tablet 1 - 2 tab PO Q4H PRN (Reason: Moderate To Severe Pain) Qty: 120 RF: 0 cefdinir 300 mg capsule 300 mg PO BID 10 Days Qty: 20 RF: 0 Continued Zoloft 100 mg tablet 200 mg PO DAILY Qty: 30 RF: 2 Zyprexa 15 mg tablet 15 mg PO BEDTIME Qty: 30 RF: 2 alprazolam [Xanax] 0.5 mg tablet 0.5 mg PO BID PRN (Reason: anxiety) Qty: 60 RF: 1 multivitamin [Multiple Vitamins] Tablet 1 tab PO DAILY RF: 0 ferrous sulfate 325 mg (65 mg iron) tablet 325 mg PO BID Qty: 60 RF: 2 metoprolol tartrate 25 mg tablet 12.5 mg PO BID RF: 0 tamsulosin 0.4 mg capsule 0.4 mg PO BEDTIME RF: 0 Discontinued hydrocodone-acetaminophen 5-325 mg Tablet 1 - 2 tab PO Q6H PRN (Reason: Pain) RF: 0 Discharge Orders: Discharge Order (Routine); Ordered 10/21/19 Ordered By: Silverio Spain Referrals: Samia Sibley MD [Staff Physician] - 4-7 days Silverio Spain MD [Primary Care Provider] - 1 week Discharge Diet: Regular Discharge Activity: Increase activity as tolerated Discharge Attestations Time Spent in Discharge Care*: greater than 30 min Quality Metrics Clinical Quality Measures During this hospital stay, did patient experience: None Coding Level of Care Code Acute [employer] for [employer] Diagnoses Pneumonia J18.9 Anemia D64.9 Sinus tachycardia R00.0 Squamous cell lung cancer C34.90
[2019-10-21] MEDS: ipratropium-albuterol 3 mL Neb INHALATION ×2 (08:54→13:00)
[2019-10-21] MEDS: ferrous sulfate EC 325 mg Tablet PO (09:25)
[2019-10-21] MEDS: sertraline 100 mg Tablet 200 MG PO (09:25)
[2019-10-21] MEDS: lidocaine 5% Patch 1 PATCH TOPICAL (09:25)
[2019-10-21] MEDS: multivitamin therapeutic Tablet 1 TAB PO (09:26)
[2019-10-21] MEDS: metoprolol tartrate 25 mg Tablet 12.5 MG PO (09:26)
--- NOTE | 2019-10-21 12:06 | PC.NURSE ---
de-access port a cath: pac flushed with 5 cc ns.good blood return noted.pac flushed with 5000 units heparin.pac de-accessed using aseptic technique.bandaid applied.pt tolerated procedure well.
== END 2019-10-21 13:40 | disposition home or self-care (01) | DRG 871 ==
LOC: ER 12:41 → CSU 14:59
PROVIDERS: Family Medicine; Admitting Provider Family Medicine; PCP Family Medicine; Visit Provider Student in an Organized Health Care Education/Training Program
DX: A41.9 Sepsis, unspecified organism (principal); J18.9 Pneumonia, unspecified organism; J90 Pleural effusion, not elsewhere classified; C34.91 Malignant neoplasm of unspecified part of right bronchus or lung; Z79.899 Other long term (current) drug therapy; D63.0 Anemia in neoplastic disease; F41.1 Generalized anxiety disorder; Z87.891 Personal history of nicotine dependence
CPT/HCPCS: 12345; 36415; 36416; 36430; 36591; 36592; 36600; 71045; 71046; 71275; 77336; 77387; 77412; 80051; 80053; 80202; 81003; 82009; 82803; 82810; 82962; 83605; 83735; 83880; 83986; 84100; 85025; 86141; 86403; 86850; 86900; 86920; 87040; 87070; 87205; 87635; 87641; 87804; 93005; 94640; 94664; 96372; 96375; 99214; 99283; J0743; J1642; J1644; J1650; J1956; J2270; J2405; J2543; J3370; J7030; J7050; P9016; Q9967

== ENCOUNTER 2019-11-07 07:00 | Outpatient (RCR) | payer MEDICARE, MEDICAID, SELFPAY ==
[2019-10-15 10:09] LABS: Basophils # 0.1 10^3/uL (0.0-0.1); Basophils % 0.3 %; Eosinophils # 0.1 10^3/uL (0.0-0.8); Eosinophils % 0.5 %; Hematocrit 28.6 % (42.0-52.0); Hemoglobin 8.4 g/dL (11.7-16.6); Lymphocytes # 0.9 10^3/uL (0.8-4.8); Lymphocytes % 3.4 %; Mean Corpuscular HGB Conc 29.4 g/dL (30.0-36.0); Mean Corpuscular Hemoglobin 24.9 pg (28.0-34.0); Mean Corpuscular Volume 84.6 fL (80-94); Mean Platelet Volume 9.7 fL (7.4-10.4); Monocytes % 3.7 %; Neutrophils # 23.9 10^3/uL (1.8-7.7); Neutrophils % 90.8 %; Nucleated Red Blood Cells % 0 %; Platelet Count 405 10^3/cmm (130-400); Red Blood Count 3.38 10^6/uL (4.1-5.3); Red Cell Distribution Width 15.1 % (12.1-15.1); White Blood Count 26.4 10^3/uL (4.0-10.0)
[2019-10-15 10:41] LABS: Alanine Aminotransferase 17 U/L (0-41); Albumin Level 3.2 g/dL (3.5-5.2); Alkaline Phosphatase 121 IU/L (40-130); Anion Gap 18.1 (5-19); Aspartate Amino Transferase 13 U/L (0-40); Blood Urea Nitrogen 16 mg/dL (8-23); Calcium 9.4 mg/dL (8.5-10.5); Carbon Dioxide 23 mmol/L (22-29); Chloride 95 mmol/L (98-107); Globulin 4.1 g/dL (1.3-4.6); Glomerular Filtration Rate 95.6 mL/min (90-130); Glucose 208 mg/dL (65-115); Osmolality Calculated 276 mOsm/kg (285-295); Potassium 4.1 mmol/L (3.5-5.1); Sodium 132 mmol/L (136-145); Total Bilirubin 0.3 mg/dL (0.15-1.2); Total Protein 7.3 g/dL (6.6-8.7)
--- NOTE | 2019-10-15 13:38 | ONC FU_ITS ---
Dr. Sibley follow up note Patient: Chalino Jeffrey Unit #: [id number]: 1950 Dicatated By: Samia Sibley M.D.Date of Visit:Oct 15, 2019 Onc Med Follow-up/Prog Note History of Present Illness: Mr. Chalino Jeffrey, is a 69-year-old gentleman with history of hemoptysis, initially noticed in mid July 2019,, it was progressive in nature, as per patient he went to hospital and on 08/13/[address] angiogram which showed no pulmonary emboli but 6.2 x 3.9 x 4.8 cm right superior hilar/upper lobe mass with obstruction of right upper lobe bronchus with postobstructive pneumonia/atelectasis and also volume. Moderate mediastinal and right hilar metastatic adenopathy and probable pleural-based metastasis over the right upper lung field. Moderate centrilobular emphysema. Patient was referred to pulmonology and underwent bronchoscopy on 08/15/2019 biopsy was obtained from the mediastinal lymph nodes and right hilar mass and bronchial washing all confirmed non-small cell lung cancer with immunophenotype consistent with squamous cell carcinoma. Patient decided to go to [facility] far evaluation and management, as per patient he was informed that he has stage IIIB disease so he is not a candidate for surgery so chemoradiation was recommended but prior to that staging workup with CT PET scan and MRI scan of the head was recommended. Patient decided to come back to [place] for further workup and management. Patient still complaining of mild hemoptysis especially with cough otherwise no fever or chills, no nausea or vomiting, no chest pain, no headaches or blurred vision or double vision. No jaundice, no bony pains, appetite is good. Patient also recently diagnosed with persistent tachycardia etiology unknown Patient has history of heavy smoking the past but quit in 2015 since then he was smoking e-cigarette which he quit recently too. Staging CT PET scan done on September 16, 2019 showed large FDG avid anterior right upper lobe mass extending into the mediastinum measuring 7.7 x 6.7 cm. There are few avid mediastinal precarinal and pretracheal nodes the largest of which measures 1.4 cm. There is a left supraclavicular FDG avid 1.2 cm node. There is a weakly avid posterior left upper lobe 8 mm node. There is a posterior basal left upper lobe perifissural 6 mm node that is non-avid. No evidence of distant metastatic disease otherwise below diaphragm. MRI scan of the head done on September 16, 2019 showed no evidence of metastatic disease Because of persistent off and on hemoptysis and probable post obstructive pneumonitis, he was referred to radiation oncology for palliative radiation therapy which was started on October 06, 2019, and patient was also referred to Dr. everett for Port-A-Cath placement and left supraclavicular lymph node biopsy, patient underwent left supraclavicular biopsy on October 09, 2019 and final pathology report came back benign fibrous soft tissue, adipose fat and dystrophic calcification, no malignancy identified. ? missed lymphnode versus inflammation Came for follow-up, complaining of generalized weakness and fatigue dyspnea on exertion off and on mild hemoptysis but no fever chills, no nausea or vomiting but poor appetite and also complaining of palpitation. Not being treated with radiation therapy to the right lung Medications: Ferrous Sulfate 1 Tablet (of 325 (65 fe) mg) Tablet Oral b.i.d., Flomax 1 Tablet (of 0.4 mg) Capsule Oral daily, Hydrocodone-Acetaminophen 1 Tablet (of 5-325 mg) Tablet Oral q 6 hours, Metoprolol Tartrate 0.5 Tablet (of 25 mg) Oral b.i.d., Xanax 1 Tablet (of 0.5 mg) Oral b.i.d., Zoloft 2 Tablet (of 100 mg) Oral daily, ZyPREXA 1 Tablet (of 10 mg) Oral daily Allergies: No Known Allergies. Review of Systems: Review of Systems is not available for this patient. Vital Signs: Performed on Oct 15, 2019 11:09 Height - 67.00 in Weight - 127.0 lbs (LOW) BSA - 1.67 sq.m BMI - 19.89 Temperature - 98.9 F (HIGH) Pulse - 121 /min (HIGH) Respiration - 26 /min BP - 121/74 mm(hg) O2 Sat - 98 % Pain - 4 Performance Status: 2 - Ambulatory/capable of all self-care, unable to perform any work activities. Up and about more than 50% of waking hours. (ECOG) Physical Examination: ENMT - Dry mucosa, poor oral hygiene, no thrush or jaundice, Respiratory - Decreased breath sound right otherwise clear, Cardiovascular - Tachycardia otherwise regular rhythm, Abdomen - Soft, bowel sounds present, nontender, Extremities - No edema or rash. Lab/Imaging: Test performed on Sep 22, 2019 09:25 Sodium 134 mmol/L Potassium 4.3 mmol/L Chloride 97 mmol/L CO2 23 mmol/L Anion Gap 18.3 BUN 19 mg/dL Creatinine 1.2 mg/dL Cr Clearance (Est) 46.6700 mL/min eGFR 59.9 mL/min Glucose 137 mg/dL Calcium 10.9 mg/dL Protein, Total 8.4 g/dL Albumin 3.5 g/dL Globulin 4.9 g/dL Bilirubin, Total 0.3 mg/dL ALT (SGPT) 19 U/L AST (SGOT) 17 U/L Alkaline Phosphatase 114 IU/L Test performed on Sep 22, 2019 08:14 WBC 23.9 10 3/uL RBC 4.09 10 6/uL HGB 10.8 g/dL HCT 37.9 % MCV 92.7 fL MCH 26.4 pg MCHC 28.5 g/dL RDW 14.5 % Platelet Count 373 10 3/cmm MPV 9.7 fL Neutrophils 19.8 10 3/uL Lymphocytes 2.1 10 3/uL Monocytes 1.4 10 3/uL Eosinophils 0.3 10 3/uL Basophils 0.1 10 3/uL Neutrophil % 82.9 % Lymphocyte % 8.8 % Monocyte % 5.8 % Eosinophil % 1.1 % Basophils % 0.6 % Impression: squamous cell carcinoma Per bronchoscopy done on 08/15/2019 showed fine-needle aspiration from lymph node, station 7, station 4R, right hilar mass, bronchial brushing right upper lobe, all confirmed squamous cell carcinoma Chest CT angiogram done on 08/13/2019 showed 6.2 x 3.9 x 4.8 cm right suprahilar/upper lobe mass with obstruction of right upper lobe bronchus with postobstructive pneumonia/atelectasis. Moderate mediastinal and right hilar metastatic lymphadenopathy Probable pleural-based metastasis over right upper lung field. No pulmonary embolism. Plan: Discussed with patient regarding his labs white blood count 26.4 hemoglobin 8.4 hematocrit 28.6 platelets 405,000 CMP within normal limit except sodium 132 and glucose 208 Clinically, patient is not doing too well, looks fatigued and washed out his vitals showed pulse 121/min blood pressure 121/74 and CBC showed significant leukocytosis with left shift, concern is whether patient is developing sepsis and also there is a further drop in his hemoglobin could be due to chronic blood loss due to bronchial involvement with the tumor. Patient was given a course of antibiotic with Levaquin which he finished recently without significant improve in his persistent leukocytosis, at this point will refer him [place] [facility] [place] case was discussed with the ER physician for evaluation and possible inpatient care with IV antibiotics, patient may require blood transfusion as now he is symptomatic due to progressive anemia. Next GEN sequencing could not be done on tumor because of insufficient specimen and left supraclavicular lymph node which was seen on CT PET scan, was biopsied and pathology report showed no sign of malignancy but benign fibrous soft tissue, adipose tissue and concern was whether involved lymph node was missed or patient had inflammation seen on CT PET scan. We will consider next nation sequencing on the blood although yield is low but if it shows any abnormality to consider targeted therapy, will consider targeted therapy otherwise consider weekly carboplatin Taxol concurrent with radiation or after radiation is completed. He will return to clinic in 1 week with CBC CMP in the meantime we will get approval for chemotherapy with carboplatin AUC 2 and Taxol 50 mg/m??? weekly Signed By: Samia Sibley M.D. <<Signature on File>>
--- NOTE | 2019-10-22 13:52 | ONCRAD TMN_ITS ---
Radiation Oncology Weekly Treatment Management Patient: Cahlino Jeffrey MR#: [id number] : 1950 Age: 69 Sex: Male Dictated by: Dr. Tiago Rodas Date of Service: 10/22/2019 Referring Physician(s) : Diagnosis: C34.11 - Malignant neoplasm of upper lobe, right bronchus or lung, Diagnosed 09/02/2019 (Active) C77.1 - Secondary and unspecified malignant neoplasm of intrathoracic lymph nodes, Diagnosed 09/02/2019 (Active) Radiotherapy to date: Course: RT Lung 2019, Treatment Site: RT [id number], Ref. ID: [id number], Energy: 15X, Dose/Fx (cGy): 250, #Fx: , Dose Correction (cGy): 0, Total Dose (cGy): 2,250, Start Date: 10/06/2019, Elapsed Days: 16 Chief Complaint/History of Present Illness: lung cancer The patient is seen on today's on treatment visit after recently being discharged from the hospital due to a diagnosis of pneumonia/sepsis. Although the patient has an indwelling chemotherapy port, he reports that he has not been able to receive chemotherapy yet. The patient also shares that he does not have a good appetite and he continues to lose weight. The past week, his weight is down 2.8 pounds. The patient shares that food simply does not taste good and he is not eating secondary to nausea. He reports no chest wall pain, no hemoptysis, no painful swallowing, and no recent fever/chills. Current Medications: Ferrous Sulfate, flomax, hydrocodone-Acetaminophen, metoprolol Tartrate, xanax, zoloft, zyPREXA. Allergies: No Known Allergies Current Complaints/Review of Systems: Vital Signs: Performed on 10/22/2019 10:28 AM BMI - 19.547 kg/m2, Height - 67.00 in, Weight - 124.8 lbs, Temperature - 98.5 f, Pulse - 120, Respiration - 22, O2 Sat - 96 %, Pain - 0 and BP - 94/ 67 mm(hg). Physical Exam: Appears stable, no skin erythema or desquamation. Performance Status: 2 - Ambulatory/capable of all self-care, unable to perform any work activities. Up and about more than 50% of waking hours. (ECOG) Lab: None pending in Radiation Oncology. Test performed on 10/15/2019 9:50 AM WBC - 26.4 10 3/ul (high), RBC - 3.38 10 6/ul (low), HGB - 8.4 g/dl (low), HCT - 28.6 % (low), MCH - 24.9 pg (low), MCHC - 29.4 g/dl (low), Platelet Count - 405 10 3/cmm (high), Neutrophils - 23.9 10 3/ul (high), Monocytes - 1.0 10 3/ul (high), Sodium - 132 mmol/l (low), Chloride - 95 mmol/l (low), Glucose - 208 mg/dl (high) and Albumin - 3.2 g/dl (low). Imaging: No new diagnostic imaging was performed since the last weekly treatment visit. All radiation therapy related imaging (including but not limited to kV, MV, and CBCT generated images) was reviewed. Appropriate changes, if any, were made to assure accurate target localization. Impression/Plan: Tolerating treatment well with expected side effects. Continue treatment as planned. The patient was given a prescription for Zofran 8 mg p.o. every 8 hours as needed. We had a candid discussion regarding nutrition and the patient believes that with an appropriate antiemetic, he would be able to eat. CPT: 69954 Signed by: Dr. Tiago Rodas>10/22/2019 1:50:21 PM <<Signature on File>>
[2019-10-28 14:15] LABS: Basophils # 0.1 10^3/uL (0.0-0.1); Basophils % 0.4 %; Eosinophils # 0.3 10^3/uL (0.0-0.8); Eosinophils % 1.6 %; Hematocrit 36.4 % (42.0-52.0); Hemoglobin 10.8 g/dL (11.7-16.6); Lymphocytes # 1.6 10^3/uL (0.8-4.8); Lymphocytes % 7.7 %; Mean Corpuscular HGB Conc 29.7 g/dL (30.0-36.0); Mean Corpuscular Hemoglobin 24.8 pg (28.0-34.0); Mean Corpuscular Volume 83.7 fL (80-94); Mean Platelet Volume 9.8 fL (7.4-10.4); Monocytes # 1.2 10^3/uL (0.2-0.9); Neutrophils # 16.89 10^3/uL (1.8-7.7); Neutrophils % 83.6 %; Nucleated Red Blood Cells % 0 %; Platelet Count 430 10^3/cmm (130-400); Red Blood Count 4.35 10^6/uL (4.1-5.3); Red Cell Distribution Width 15.3 % (12.1-15.1); White Blood Count 20.2 10^3/uL (4.0-10.0)
[2019-10-28 14:48] LABS: C Reactive Protein 80.7 mg/L (0.0-4.9)
--- NOTE | 2019-10-28 15:07 | ONC FU_ITS ---
Dr. Sibley follow up note Patient: Chalino Jeffrey < Unit #: [id number]: 1950 Dicatated By: Samia Sibley M.D.Date of Visit:Oct 28, 2019 Onc Med Follow-up/Prog Note History of Present Illness: Mr. Chalino Jeffrey, is a 69-year-old gentleman with history of hemoptysis, initially noticed in mid July 2019,, it was progressive in nature, as per patient he went to hospital and on 08/13/[address] angiogram which showed no pulmonary emboli but 6.2 x 3.9 x 4.8 cm right superior hilar/upper lobe mass with obstruction of right upper lobe bronchus with postobstructive pneumonia/atelectasis and also volume. Moderate mediastinal and right hilar metastatic adenopathy and probable pleural-based metastasis over the right upper lung field. Moderate centrilobular emphysema. Patient was referred to pulmonology and underwent bronchoscopy on 08/15/2019 biopsy was obtained from the mediastinal lymph nodes and right hilar mass and bronchial washing all confirmed non-small cell lung cancer with immunophenotype consistent with squamous cell carcinoma. Patient decided to go to [facility] far evaluation and management, as per patient he was informed that he has stage IIIB disease so he is not a candidate for surgery, so chemoradiation was recommended but prior to that staging workup with CT PET scan and MRI scan of the head was recommended. Patient decided to come back to [place] for further workup and management. Patient still complaining of mild hemoptysis especially with cough otherwise no fever or chills, no nausea or vomiting, no chest pain, no headaches or blurred vision or double vision. No jaundice, no bony pains, appetite is good. Patient also recently diagnosed with persistent tachycardia etiology unknown Patient has history of heavy smoking the past but quit in 2015 since then he was smoking e-cigarette which he quit recently too. Staging CT PET scan done on September 16, 2019 showed large FDG avid anterior right upper lobe mass extending into the mediastinum measuring 7.7 x 6.7 cm. There are few avid mediastinal precarinal and pretracheal nodes the largest of which measures 1.4 cm. There is a left supraclavicular FDG avid 1.2 cm node. There is a weakly avid posterior left upper lobe 8 mm node. There is a posterior basal left upper lobe perifissural 6 mm node that is non-avid. No evidence of distant metastatic disease otherwise below diaphragm. MRI scan of the head done on September 16, 2019 showed no evidence of metastatic disease Because of persistent off and on hemoptysis and probable post obstructive pneumonitis, he was referred to radiation oncology for palliative radiation therapy which was started on October 06, 2019, and patient was also referred to Dr. everett for Port-A-Cath placement and left supraclavicular lymph node biopsy, patient underwent left supraclavicular biopsy on October 09, 2019 and final pathology report came back benign fibrous soft tissue, adipose fat and dystrophic calcification, no malignancy identified. ? missed lymphnode versus inflammation Patient was admitted to hospital on October 15, 2019 because of postobstructive pneumonia, tachycardia and leukocytosis, chest x-ray done on October 15, 2019 shows dense right hilum, airspace consolidation right upper lobe with volume loss, he was treated with broad-spectrum antibiotics Zosyn, levofloxacin and vancomycin, after 2 days it did not make significant improvement so Zosyn was changed to imipenem with that he started improving his blood count started improving white blood count dropped from 26,000-15,000 and patient was also receiving palliative radiation therapy for obstructive pneumonitis, his dyspnea improved and patient was also given 2 units of packed RBCs and continue with oral iron supplement. Patient also had CT angiogram done on October 16, 2019 which showed no pulmonary embolus identified, interval increase in size of right apical and right upper chest mass with chest wall invasion of anterior lateral second and third rib, moderate right pleural effusion, and new right lower lobe 5.7 mm noncalcified pulmonary nodule. Came for follow-up, denies any specific complaints, feeling much better since last visit and no more comfortable, breathing better, tolerating palliative radiation therapy well. No hemoptysis, no fever or chills no nausea or vomiting, appetite is better. Medications: Ferrous Sulfate 1 Tablet (of 325 (65 fe) mg) Tablet Oral b.i.d., Flomax 1 Tablet (of 0.4 mg) Capsule Oral daily, Metoprolol Tartrate 0.5 Tablet (of 25 mg) Oral b.i.d., oxyCODONE-Acetaminophen 1 Tablet (of 5-325 mg) Tablet Oral q 4 to 6 hours PRN, Xanax 1 Tablet (of 0.5 mg) Oral b.i.d., Zoloft 2 Tablet (of 100 mg) Oral daily, ZyPREXA 1 Tablet (of 10 mg) Oral daily Allergies: No Known Allergies. Review of Systems: Constitutional - Complains of a poor appetite. Complains of severe fatigue. Complains of night sweats which occur occasionally. Complains of change in weight down 3.2 lbs. since last OTV on 10/22/19. Drinks about 3 Ensures per day. Denies fever, ENMT - Complains of altered taste. Denies dysphagia and stomatitis, Cardiovascular - Denies arrhythmias, chest pain and edema, Respiratory - Complains of a mild cough which is non-productive. Complains of dyspnea associated with normal activity. Complains of wheezing occasionally. Denies hemoptysis, Constitutional - Appetite is poor and weight is slowly decreasing. No fever, chills, hot flashes, or night sweats. Energy level is poor, ENMT - No sinus congestion/drainage. No mouth sores. No sore throat or difficulty swallowing, Hematologic/Lymphatic - No abnormal bruising or bleeding, Respiratory - Positive for shortness of breath and cough. No pleuritic pain or hemoptysis, Cardiovascular - No angina pain. No palpitations, Gastrointestinal - No nausea or vomiting. No heartburn or acid reflux. No diarrhea or constipation. No blood in the stool or black stools, Genitourinary (M) - No dysuria or hematuria. Positive for urinary frequency. No urgency. Positive for incontinence, Musculoskeletal - No joint or bone pain, Neurologic - No headache or dizziness. No numbness/paresthesias or other focal neurologic symptoms, Psychiatric - Positive for anxiety. Vital Signs: Performed on Oct 28, 2019 10:40 Height - 67.00 in Weight - 121.6 lbs Temperature - 98.9 F Pulse - 117 Respiration - 24 BP - 107/75 mm(hg) O2 Sat - 98 % Pain - 3 Performed on Oct 28, 2019 10:40 BMI - 19.045 kg/m2 Performed on Oct 28, 2019 09:29 Height - 67.00 in Weight - 121.6 lbs (LOW) BSA - 1.64 sq.m BMI - 19.05 Temperature - 98.9 F (HIGH) Pulse - 122 /min (HIGH) Respiration - 24 /min BP - 107/75 mm(hg) O2 Sat - 98 % Pain - 4 Performance Status: 1 - No physically strenuous activity, but ambulatory and able to carry out light or sedentary work (e.g. office work, light house work). (ECOG) Physical Examination: ENMT - No mouth sores, no thrush no jaundice, Respiratory - Poor air entry, decreased breath sound at right base, Cardiovascular - Regular rate and rhythm of heart, Abdomen - Soft, bowel sounds present, Extremities - No visible edema. Lab/Imaging: Test performed on Oct 15, 2019 09:50 Sodium 132 mmol/L Potassium 4.1 mmol/L Chloride 95 mmol/L CO2 23 mmol/L Anion Gap 18.1 BUN 16 mg/dL Creatinine 0.8 mg/dL Cr Clearance (Est) 70.0100 mL/min eGFR 95.6 mL/min Glucose 208 mg/dL Calcium 9.4 mg/dL Protein, Total 7.3 g/dL Albumin 3.2 g/dL Globulin 4.1 g/dL Bilirubin, Total 0.3 mg/dL ALT (SGPT) 17 U/L AST (SGOT) 13 U/L Alkaline Phosphatase 121 IU/L WBC 26.4 10 3/uL RBC 3.38 10 6/uL HGB 8.4 g/dL HCT 28.6 % MCV 84.6 fL MCH 24.9 pg MCHC 29.4 g/dL RDW 15.1 % Platelet Count 405 10 3/cmm MPV 9.7 fL Neutrophils 23.9 10 3/uL Lymphocytes 0.9 10 3/uL Monocytes 1.0 10 3/uL Eosinophils 0.1 10 3/uL Basophils 0.1 10 3/uL Neutrophil % 90.8 % Lymphocyte % 3.4 % Monocyte % 3.7 % Eosinophil % 0.5 % Basophils % 0.3 % NRBC % 0 % Impression: squamous cell carcinoma Per bronchoscopy done on 08/15/2019 showed fine-needle aspiration from lymph node, station 7, station 4R, right hilar mass, bronchial brushing right upper lobe, all confirmed squamous cell carcinoma Chest CT angiogram done on 08/13/2019 showed 6.2 x 3.9 x 4.8 cm right suprahilar/upper lobe mass with obstruction of right upper lobe bronchus with postobstructive pneumonia/atelectasis. Moderate mediastinal and right hilar metastatic lymphadenopathy Probable pleural-based metastasis over right upper lung field. No pulmonary embolism. Plan: Discussed with patient regarding his labs from hospital done on October 21, 2019 which showed white blood count 15.4 compared to 26,000 earlier at the time of admission on October 15, 2019 hemoglobin 9.4 hematocrit 31.4 platelets 334,000, creatinine 0.7 Clinically, patient is doing reasonably well, now being treated with palliative radiation therapy to the right lung for postobstructive pneumonitis, and his postobstructive pneumonia was treated as inpatient with broad-spectrum antibiotics with good results, improvement in his leukocytosis and overall symptoms, now pneumonia is resolving Case was discussed with radiation oncology, his left supraclavicular lymph node biopsy was negative but concern was whether it was a missed target or inflammation. So planning was to proceed with a definitive combined chemoradiation but concern was now second and third rib involvement with tumor, so radiation oncology is planning to repeat CT scan of chest as a planning for definitive combined chemoradiation, in the meantime we will consider adding weekly carboplatin Taxol concurrent with radiation therapy will continue with oral antibiotics. All the risk versus benefits associated with chemotherapy especially in the setting of postobstructive pneumonia although is improving, were discussed with patient's son and patient, both agreed with the plan. And after conclusion of combined chemoradiation we will consider repeating scan and if it shows excellent response, then we may consider either resection of left supraclavicular lymph node or radiation. All the side effects possible benefit associated with weekly chemotherapy carboplatin/Taxol were discussed again, further teaching will be done by chemotherapy nurse., Patient already has Port-A-Cath placement. We will obtain approval for chemotherapy from the insurance and then patient return to clinic 1 week after chemotherapy initiated with CBC CMP Signed By: Samia Sibley M.D. <<Signature on File>>
--- NOTE | 2019-10-28 17:12 | ONCRAD TMN_ITS ---
Radiation Oncology Weekly Treatment Management Patient: Chalino Jeffrey MR#: [id number] : 1950> Age: 69> Sex: Male Dictated by: Dr. Tiago Rodas Date of Service: 10/28/2019 Referring Physician(s) : Diagnosis: C34.11 - Malignant neoplasm of upper lobe, right bronchus or lung, Diagnosed 09/02/2019 (Active) C77.1 - Secondary and unspecified malignant neoplasm of intrathoracic lymph nodes, Diagnosed 09/02/2019 (Active) Radiotherapy to date: Course: RT Lung 2019, Treatment Site: RT [id number], Ref. ID: [id number], Energy: 15X, Dose/Fx (cGy): 250, #Fx: , Dose Correction (cGy): 0, Total Dose (cGy): 3,250, Start Date: 10/06/2019, Elapsed Days: Chief Complaint/Current History: lung cancer The patient is seen today as part of his weekly on treatment visit. He reports severe fatigue, and a poor appetite. He has had weight loss of 3.2 pounds since the prior week. The patient is frustrated that his food has no taste. Furthermore, the patient has a nonproductive cough. He reports no shortness of breath, no swallowing difficulties, and no hemoptysis. Current Medications: Ferrous Sulfate, flomax, metoprolol Tartrate, ondansetron HCl, oxyCODONE-Acetaminophen, xanax, zoloft, zyPREXA. Allergies: No Known Allergies Current Complaints/Review of Systems: ROS Constitutional - Appetite is poor and weight is slowly decreasing. No fever, chills, hot flashes, or night sweats. Energy level is poor. ROS ENMT - No sinus congestion/drainage. No mouth sores. No sore throat or difficulty swallowing. ROS Hematologic/Lymphatic - No abnormal bruising or bleeding. ROS Respiratory - Positive for shortness of breath and cough. No pleuritic pain or hemoptysis. ROS Cardiovascular - No angina pain. No palpitations. ROS Gastrointestinal - No nausea or vomiting. No heartburn or acid reflux. No diarrhea or constipation. No blood in the stool or black stools. ROS Genitourinary (M) - No dysuria or hematuria. Positive for urinary frequency. No urgency. Positive for incontinence. ROS Musculoskeletal - No joint or bone pain. ROS Neurologic - No headache or dizziness. No numbness/paresthesias or other focal neurologic symptoms. ROS Psychiatric - Positive for anxiety. Vital Signs: Performed on 10/28/2019 9:29 AM Height - 67.00 in, Weight - 121.6 lbs (low), BSA - 1.64 sq.m, BMI - 19.05, Temperature - 98.9 f (high), Pulse - 122 /min (high), Respiration - 24 /min, O2 Sat - 98 %, Pain - 4 and BP - 107/ 75 mm(hg). Physical Exam: Appears stable, no skin erythema or desquamation. Performance Status: 3 - Capable of only limited self-care, confined to bed or chair more than 50% of waking hours. (ECOG) Lab: None pending in Radiation Oncology. Test performed on 10/15/2019 9:50 AM WBC - 26.4 10 3/ul (high), RBC - 3.38 10 6/ul (low), HGB - 8.4 g/dl (low), HCT - 28.6 % (low), MCH - 24.9 pg (low), MCHC - 29.4 g/dl (low), Platelet Count - 405 10 3/cmm (high), Neutrophils - 23.9 10 3/ul (high), Monocytes - 1.0 10 3/ul (high), Sodium - 132 mmol/l (low), Chloride - 95 mmol/l (low), Glucose - 208 mg/dl (high) and Albumin - 3.2 g/dl (low). Imaging: No new diagnostic imaging was performed since the last weekly treatment visit. All radiation therapy related imaging (including but not limited to kV, MV, and CBCT generated images) was reviewed. Appropriate changes, if any, were made to assure accurate target localization. Impression/Plan: The patient is tolerating treatment well. The patient's prescription will be modified such that the aggregate planned dose will be an equivalent dose to 60 Gy in 2 Gy fractions. Therefore, I am prescribing an additional 24 Gy in 12 fractions. We will complete a repeat CT simulation. Tolerating treatment well with expected side effects. Continue treatment as planned. CPT: 57603 Signed by: Dr. Tiago Rodas>10/28/2019 5:10:29 PM <<Signature on File>>
--- NOTE | 2019-10-29 | CT_ITS ---
Radiation Therapy Planning CT images; total exam DLP: 1152.51 mGy-cm MTDD
[2019-11-04 11:23] LABS: Basophils # 0.1 10^3/uL (0.0-0.1); Basophils % 0.4 %; Eosinophils # 0.3 10^3/uL (0.0-0.8); Eosinophils % 1.9 %; Hematocrit 36.9 % (42.0-52.0); Hemoglobin 10.9 g/dL (11.7-16.6); Lymphocytes # 0.8 10^3/uL (0.8-4.8); Lymphocytes % 6.2 %; Mean Corpuscular HGB Conc 29.5 g/dL (30.0-36.0); Mean Corpuscular Volume 84.6 fL (80-94); Mean Platelet Volume 9.8 fL (7.4-10.4); Monocytes # 0.8 10^3/uL (0.2-0.9); Neutrophils # 11.38 10^3/uL (1.8-7.7); Neutrophils % 84.8 %; Nucleated Red Blood Cells % 0 %; Platelet Count 298 10^3/cmm (130-400); Red Blood Count 4.36 10^6/uL (4.1-5.3); Red Cell Distribution Width 15.9 % (12.1-15.1); White Blood Count 13.4 10^3/uL (4.0-10.0)
[2019-11-04 11:33] LABS: Alanine Aminotransferase 17 U/L (0-41); Albumin Level 3.7 g/dL (3.5-5.2); Alkaline Phosphatase 143 IU/L (40-130); Anion Gap 13.4 (5-19); Aspartate Amino Transferase 18 U/L (0-40); Blood Urea Nitrogen 19 mg/dL (8-23); Calcium 9.5 mg/dL (8.5-10.5); Carbon Dioxide 25 mmol/L (22-29); Chloride 99 mmol/L (98-107); Globulin 4.1 g/dL (1.3-4.6); Glomerular Filtration Rate 95.6 mL/min (90-130); Glucose 119 mg/dL (65-115); Osmolality Calculated 274 mOsm/kg (285-295); Potassium 4.4 mmol/L (3.5-5.1); Sodium 133 mmol/L (136-145); Total Bilirubin 0.2 mg/dL (0.15-1.2); Total Protein 7.8 g/dL (6.6-8.7)
--- NOTE | 2019-11-04 12:54 | ONCRAD TMN_ITS ---
Radiation Oncology Weekly Treatment Management Patient: Chalino Jeffrey MR#: [id number] : 1950> Age: 69> Sex: Male Dictated by: Dr. Tiago Rodas Date of Service: 11/04/2019 Referring Physician(s) : Diagnosis: C34.11 - Malignant neoplasm of upper lobe, right bronchus or lung, Diagnosed 09/02/2019 (Active) C77.1 - Secondary and unspecified malignant neoplasm of intrathoracic lymph nodes, Diagnosed 09/02/2019 (Active) Radiotherapy to date: Course: RT Lung 2019, Treatment Site: RT [id number], Ref. ID: [id number], Energy: 15X, Dose/Fx (cGy): 250, #Fx: 14 / 14, Dose Correction (cGy): 0, Total Dose (cGy): 3,500, Start Date: 10/06/2019, End Date: 10/29/2019, Elapsed Days: 23 RT Lung 2019, Treatment Site: RT [id number], Ref. ID: [id number], Energy: 15X/6X, Dose/Fx (cGy): 200, #Fx: 12, Dose Correction (cGy): 0, Total Dose (cGy): 200, Start Date: 11/04/2019, Elapsed Days: 0 Current History: The patient reports no new symptoms from this past week. He still has a persistent mild cough which is nonproductive, and last week he had an episode where he had blood-tinged sputum but this has self resolved. He reports no progressive shortness of breath, Current Medications: Dexamethasone, ferrous Sulfate, flomax, lORazepam, metoprolol Tartrate, ondansetron HCl, oxyCODONE-Acetaminophen, xanax, zoloft, zyPREXA. Allergies: No Known Allergies Current Complaints/Review of Systems: Constitutional - Complains of mild fatigue. Denies lack of appetite, fever, night sweats and change in weight. ENMT - Denies dysphagia and stomatitis. Integumentary - Has no redness to the area of treatment. Cardiovascular - Denies chest pain but has right low chest wall pain. Respiratory - Complains of a mild cough which is non-productive. Complains of hemoptysis which happened a couple of times last week and none since then. Vital Signs: Performed on 11/04/2019 10:37 AM BMI - 19.139 kg/m2, Height - 67.00 in, Weight - 122.2 lbs, Temperature - 97.8 f, Pulse - 109, Respiration - 22, O2 Sat - 96 %, Pain - 0 and BP - 102/ 72 mm(hg). Physical Exam: Lungs are clear on the left. On the right, coarse & diminished breath sounds are appreciated. Performance Status: 1 - No physically strenuous activity, but ambulatory and able to carry out light or sedentary work (e.g. office work, light house work). (ECOG) Lab: None pending in Radiation Oncology. Test performed on 10/15/2019 9:50 AM WBC - 26.4 10 3/ul (high), RBC - 3.38 10 6/ul (low), HGB - 8.4 g/dl (low), HCT - 28.6 % (low), MCH - 24.9 pg (low), MCHC - 29.4 g/dl (low), Platelet Count - 405 10 3/cmm (high), Neutrophils - 23.9 10 3/ul (high), Monocytes - 1.0 10 3/ul (high), Sodium - 132 mmol/l (low), Chloride - 95 mmol/l (low), Glucose - 208 mg/dl (high) and Albumin - 3.2 g/dl (low). Imaging: Radiation therapy related imaging (including but not limited to kV, MV, and CBCT generated images) was reviewed. Appropriate changes, if any, were made to assure accurate target localization. Impression/Plan: Tolerating treatment well with expected side effects. Continue treatment as planned. Following completion of radiation therapy, I have requested office staff to schedule the patient for biopsy of his left supraclavicular lymph nodes on November 20, with a request for the patient to see Dr. Sibley in follow-up on November 24. CPT: 78367 Signed by: Dr. Tiago Rodas>11/04/2019 12:52:21 PM <<Signature on File>>
--- NOTE | 2019-11-05 11:32 | XRR_ITS ---
PROCEDURE INFORMATION: Exam: XR Chest, 2 Views Exam date and time: 11/05/2019 11:45 AM Age: 69 years old Clinical indication: Chest pain; Type not specified; Additional info: Lung cancer, chest pain TECHNIQUE: Imaging protocol: XR of the chest Views: 2 views. COMPARISON: CR XR chest 2V* [id number] 10/20/2019 6:29 PM FINDINGS: Lungs: Dense right hilum. Persistent opacity within the lung parenchyma in the suprahilar region mildly improved. Apical pleural thickening and or fluid. Volume loss right hemithorax. Subpulmonic effusion versus pleural thickening. Pleural space: See Lungs finding. Heart/Mediastinum: Unremarkable. No cardiomegaly. Vasculature: Chest port via the left subclavian approach with the tip overlying the superior vena cava. Bones/joints: Prior surgical fixation of the caudal aspect of the cervical spine. XR/XR chest 2V* [id number] IMPRESSION: 1. Dense right hilum. Persistent opacity within the lung parenchyma in the suprahilar region mildly improved. Apical pleural thickening and or fluid. 2. Volume loss right hemithorax. Subpulmonic effusion versus pleural thickening. Stable.
[2019-11-06] MEDS: sodium chloride 0.9% 250 ML 75 ML IV (10:50)
--- NOTE | 2019-11-07 11:14 | ONC FU_ITS ---
Dr. Sibley follow up note Patient: Chalino Jeffrey Unit #: [id number]: 1950 Dicatated By: Samia Sibley M.D.Date of Visit:Nov 07, 2019 Onc Med Follow-up/Prog Note History of Present Illness: Mr. Chalino Jeffrey, is a 69-year-old gentleman with history of hemoptysis, initially noticed in mid July 2019,, it was progressive in nature, as per patient he went to hospital and on 08/13/[address] angiogram which showed no pulmonary emboli but 6.2 x 3.9 x 4.8 cm right superior hilar/upper lobe mass with obstruction of right upper lobe bronchus with postobstructive pneumonia/atelectasis and also volume. Moderate mediastinal and right hilar metastatic adenopathy and probable pleural-based metastasis over the right upper lung field. Moderate centrilobular emphysema. Patient was referred to pulmonology and underwent bronchoscopy on 08/15/2019 biopsy was obtained from the mediastinal lymph nodes and right hilar mass and bronchial washing all confirmed non-small cell lung cancer with immunophenotype consistent with squamous cell carcinoma. Patient decided to go to [facility] far evaluation and management, as per patient he was informed that he has stage IIIB disease so he is not a candidate for surgery, so chemoradiation was recommended but prior to that staging workup with CT PET scan and MRI scan of the head was recommended. Patient decided to come back to [facility] for further workup and management. Patient still complaining of mild hemoptysis especially with cough otherwise no fever or chills, no nausea or vomiting, no chest pain, no headaches or blurred vision or double vision. No jaundice, no bony pains, appetite is good. Patient also recently diagnosed with persistent tachycardia etiology unknown Patient has history of heavy smoking the past but quit in 2015 since then he was smoking e-cigarette which he quit recently too. Staging CT PET scan done on September 16, 2019 showed large FDG avid anterior right upper lobe mass extending into the mediastinum measuring 7.7 x 6.7 cm. There are few avid mediastinal precarinal and pretracheal nodes the largest of which measures 1.4 cm. There is a left supraclavicular FDG avid 1.2 cm node. There is a weakly avid posterior left upper lobe 8 mm node. There is a posterior basal left upper lobe perifissural 6 mm node that is non-avid. No evidence of distant metastatic disease otherwise below diaphragm. MRI scan of the head done on September 16, 2019 showed no evidence of metastatic disease Because of persistent off and on hemoptysis and probable post obstructive pneumonitis, he was referred to radiation oncology for palliative radiation therapy which was started on October 06, 2019, and patient was also referred to Dr. everett for Port-A-Cath placement and left supraclavicular lymph node biopsy, patient underwent left supraclavicular biopsy on October 09, 2019 and final pathology report came back benign fibrous soft tissue, adipose fat and dystrophic calcification, no malignancy identified. ? missed lymphnode versus inflammation Patient was admitted to hospital on October 15, 2019 because of postobstructive pneumonia, tachycardia and leukocytosis, chest x-ray done on October 15, 2019 shows dense right hilum, airspace consolidation right upper lobe with volume loss, he was treated with broad-spectrum antibiotics Zosyn, levofloxacin and vancomycin, after 2 days it did not make significant improvement so Zosyn was changed to imipenem with that he started improving his blood count started improving white blood count dropped from 26,000-15,000 and patient was also receiving palliative radiation therapy for obstructive pneumonitis, his dyspnea improved and patient was also given 2 units of packed RBCs and continue with oral iron supplement. Patient also had CT angiogram done on October 16, 2019 which showed no pulmonary embolus identified, interval increase in size of right apical and right upper chest mass with chest wall invasion of anterior lateral second and third rib, moderate right pleural effusion, and new right lower lobe 5.7 mm noncalcified pulmonary nodule. Came for follow-up, complaining of episode of fall this morning, patient said he felt lightheaded dizzy immediately after he took his blood pressure medicine, he was also having shakes and chills but no fever. No seizure-like activity, no headaches blurred vision or double vision, no palpitation or tachycardia. Patient received his weekly chemotherapy concurrent with radiation therapy day before yesterday. Patient has been drinking of fluids.He was recently treated as inpatient for postobstructive pneumonia Medications: Ferrous Sulfate 1 Tablet (of 325 (65 fe) mg) Tablet Oral b.i.d., Flomax 1 Tablet (of 0.4 mg) Capsule Oral daily, Metoprolol Tartrate 0.5 Tablet (of 25 mg) Oral b.i.d., oxyCODONE-Acetaminophen 1 Tablet (of 5-325 mg) Tablet Oral q 4 to 6 hours PRN, Xanax 1 Tablet (of 0.5 mg) Oral b.i.d., Zoloft 2 Tablet (of 100 mg) Oral daily, ZyPREXA 1 Tablet (of 10 mg) Oral daily Allergies: No Known Allergies. Review of Systems: Review of Systems is not available for this patient. Vital Signs: Performed on Nov 07, 2019 10:58 Height - 67.00 in Temperature - 98.2 F (LOW) Pulse - 92 /min Respiration - 18 /min BP - 88/60 mm(hg) (LOW) O2 Sat - 85 % (LOW) Performance Status: 2 - Ambulatory/capable of all self-care, unable to perform any work activities. Up and about more than 50% of waking hours. (ECOG) Physical Examination: ENMT - No mouth sores, no thrush, no jaundice, Respiratory - Poor air entry, Cardiovascular - Regular rate and rhythm of heart, Abdomen - Soft, bowel sounds present, Extremities - No visible edema, gross neuro exam, nonfocal. Lab/Imaging: Test performed on Nov 04, 2019 11:00 Sodium 133 mmol/L Potassium 4.4 mmol/L Chloride 99 mmol/L CO2 25 mmol/L Anion Gap 13.4 BUN 19 mg/dL Creatinine 0.8 mg/dL Cr Clearance (Est) 67.3600 mL/min eGFR 95.6 mL/min Glucose 119 mg/dL Calcium 9.5 mg/dL Protein, Total 7.8 g/dL Albumin 3.7 g/dL Globulin 4.1 g/dL Bilirubin, Total 0.2 mg/dL ALT (SGPT) 17 U/L AST (SGOT) 18 U/L Alkaline Phosphatase 143 IU/L WBC 13.4 10 3/uL RBC 4.36 10 6/uL HGB 10.9 g/dL HCT 36.9 % MCV 84.6 fL MCH 25.0 pg MCHC 29.5 g/dL RDW 15.9 % Platelet Count 298 10 3/cmm MPV 9.8 fL Neutrophils 11.38 10 3/uL Lymphocytes 0.8 10 3/uL Monocytes 0.8 10 3/uL Eosinophils 0.3 10 3/uL Basophils 0.1 10 3/uL Neutrophil % 84.8 % Lymphocyte % 6.2 % Monocyte % 6.0 % Eosinophil % 1.9 % Basophils % 0.4 % NRBC % 0 % Impression: squamous cell carcinoma Per bronchoscopy done on 08/15/2019 showed fine-needle aspiration from lymph node, station 7, station 4R, right hilar mass, bronchial brushing right upper lobe, all confirmed squamous cell carcinoma Chest CT angiogram done on 08/13/2019 showed 6.2 x 3.9 x 4.8 cm right suprahilar/upper lobe mass with obstruction of right upper lobe bronchus with postobstructive pneumonia/atelectasis. Moderate mediastinal and right hilar metastatic lymphadenopathy Probable pleural-based metastasis over right upper lung field. No pulmonary embolism. Plan: Discussed with patient and his son regarding possibilities causing fall this morning and now his blood pressure is 88/60, pulse is 92/min regular temperature 98.2 and pulse ox is 85%, clinically it appears patient may have sepsis, due to persistent or unresolved postobstructive pneumonia and recently received weekly chemotherapy concurrent with radiation or other possibility could be due to mild to moderate dehydration due to poor oral intake and metoprolol he took this morning., Case was discussed with ER physician, patient being sent to ER for evaluation, for possible inpatient care as he is a high risk for sepsis And other possibility for fall could be seizure-like activity but patient denies any seizures or brain mets Signed By: Samia Sibley M.D. <<Signature on File>>
== END 2019-11-07 11:20 | disposition home or self-care (01) ==
LOC: ONCMED 07:00
PROVIDERS: Internal Medicine Hematology & Oncology; Absent Provider Radiology Radiation Oncology; PCP Family Medicine; Visit Provider Radiology Radiation Oncology
DX: Z51.0 Encounter for antineoplastic radiation therapy (principal); Z51.11 Encounter for antineoplastic chemotherapy; C34.11 Malignant neoplasm of upper lobe, right bronchus or lung; C77.1 Secondary and unspecified malignant neoplasm of intrathoracic lymph nodes; D72.829 Elevated white blood cell count, unspecified; D64.9 Anemia, unspecified; R59.0 Localized enlarged lymph nodes; R11.0 Nausea; J18.8 Other pneumonia, unspecified organism; Z79.899 Other long term (current) drug therapy
CPT/HCPCS: 36591; 71046; 77290; 77300; 77301; 77336; 77338; 77386; 77387; 77412; 80053; 85025; 86140; 96367; 96413; 96417; 99214; J1100; J1200; J2469; J3490; J7030; J7050; J9045; J9267

== ENCOUNTER 2019-11-07 11:02 | Observation (INO) | payer MEDICARE, MEDICAID, SELFPAY ==
[2019-11-07] VITALS (17 sets, daily range): BP systolic 73–122; BP diastolic 49–81; PULSE 106–175; RESP 16–27; TEMP 37; O2SAT 93–99; BMI 18.9
--- NOTE | 2019-11-07 11:19 | XRR_ITS ---
PROCEDURE INFORMATION: Exam: XR Chest, 1 View Exam date and time: 11/07/2019 12:01 PM Age: 69 years old Clinical indication: Dyspnea TECHNIQUE: Imaging protocol: XR of the chest Views: 1 view. COMPARISON: CR XR chest 2V* [id number] 11/05/2019 11:42 AM FINDINGS: Tubes, catheters and devices: Stable positioning of med port catheter. Lungs: Emphysematous change and interstitial prominence. Stable right upper lobe scarring and elevation of the right hemidiaphragm. Pleural space: Right pleural thickening. Heart/Mediastinum: Stable right mediastinal widening. Bones/joints: Cervical spine fusion. Osteopenia and degenerative change. Stigmata of remote trauma and postoperative change in the left clavicle. When correlating with the previous study, no significant interval changes are present. XR/XR chest 1V portable [id number] IMPRESSION: Stable appearance of the chest, not significantly changed from 11/05/2019 .
--- NOTE | 2019-11-07 11:20 | ECG_ITS ---
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 Measurements Intervals [place] Rate: 102 P: 66 MT: 152 QRS: 42 QRSD: 76 T: 64 QT: 343 QTc: 448 Interpretive Statements SINUS TACHYCARDIA WITH OCCASIONAL SUPRAVENTRICULAR PREMATURE COMPLEXES POSSIBLE LEFT ATRIAL ENLARGEMENT [-0.1mV P WAVE IN V1/V2] SEPTAL MYOCARDIAL INFARCTION , OF INDETERMINATE AGE [40+ ms Q WAVE IN V1/V2] Compared to ECG 10/15/2019 12:50:11 Myocardial infarct finding now present Electronically Signed On 11-07-2019 20:13:45 CDT by Afshin Frey M.D. [email or web address]
--- NOTE | 2019-11-07 11:39 | ED_ITS ---
HPI - Arrhythmia/Palpitations General: Chief Complaint: Arrhythmia/Palpitations Stated Complaint: FALL, DIZZY, LOW BP CANCER PT Time Seen by Provider: 11/07/19 11:13 History of Present Illness: HPI narrative: This patient is a pleasant 69-year-old male presenting today with a near syncopal episode this morning, high heart rate and low blood pressure. He said his oxygen level was also low. He was sent from Dr. Sibley's office this morning where he was being seen for radiation treatment. He has stage IV lung cancer and had his first chemotherapy treatment this week as well. He has not been feeling well for some time but just got this weak and dizzy over the last day or 2. He cannot feel the rapid heart rate. MD complaint: rapid heart beat Onset (ago): unknown Duration: constant Severity: severe Context: occurred during rest Arrhythmia history: other (Has had resting tachycardia in the 120s since his cancer diagnosis and recent bout of pneumonia.) Associated symptoms: Reports pre-syncope (While sitting on the edge of his bed today, he became dizzy and fell. He does not think he lost consciousness. He denies injury.) and short of breath; Deny nausea or vomiting Review of Systems General: Reports: 10 or more systems reviewed and unremarkable except in HPI and below Const: Reports: fatigue and malaise; Denies: fever(s) or chills Eyes: Denies: change in vision ENMT: Denies: odynophagia Card: Reports: pre-syncope (While sitting on the edge of his bed today, he became dizzy and fell. He does not think he lost consciousness. He denies injury.) Resp: Reports: dyspnea; Denies: productive cough or non-productive cough GI: Denies: abdominal pain, nausea or vomiting : Denies: flank pain Musc: Denies: neck pain or back pain Skin/Breast: Denies: rash Neuro: Reports: dizziness; Denies: headache(s), numbness in extremities or weakness in extremities Ignacio/Lymph: Denies: easy bruising or easy bleeding [facility] ED PFSH: Medical History (Updated 11/07/19 @ 14:09 by Dimas Demarco MD) Anemia Anorexia nervosa, restricting type Closed left clavicular fracture Generalized anxiety disorder H/O clavicle fracture with hardware Major depressive disorder, recurrent severe without psychotic features Sinus tachycardia SOB (shortness of breath) Squamous cell lung cancer Tachycardia Surgical History H/O neck surgery Hx of cholecystectomy Family History Mother Cancer Bladder Denies family history of Anesthesia complication Bleeding disorder Social History Smoking and tobacco status: former smoker Alcohol intake: former Lives independently: Yes Household members: children Current occupational status: disabled History of recent travel: No Current gender identity: Male Physical Exam Const: COMMON NORMALS: no acute distress, patient oriented x3, no limitations and alert GENERAL APPEARANCE: cooperative, anxious, ill appearing and frail appearing NUTRITIONAL APPEARANCE: thin HENMT: HEAD & SCALP: normal to inspection FACE & SINUS: normal facial exam Eye: GENERAL EYE: appearance normal, both eyes and all related structures Neck/C-Spine: COMMON NORMALS: supple, no meningeal signs and no JVD Chest: COMMONS NORMALS: normal inspection of the chest Resp: COMMON NORMALS: normal respiratory effort and No use of accessory muscles AUSCULTATION: diminished lung sounds on the right Cardio: COMMON NORMALS: no JVD and regular rhythm RATE: tachycardic RHYTHM: regular rhythm GI: COMMON NORMALS: Normal to inspection, nondistended, normoactive bowel sounds present, Soft to palpation and non-tender INSPECTION: Yes normal to inspection AUSCULTATION: Yes normoactive bowel sounds PALPATION: Yes Soft to palpation Back/Pelvis: COMMON NORMALS: thoracic and lumbar spine normal to inspection Extremity: COMMON NORMALS: normal to inspection Neuro: COMMON NORMALS: patient oriented x3, moves all extremities, no focal motor deficits and no sensory deficits noted SENSORIUM/ORIENTATION: Yes alert MENINGEAL SIGNS: Yes no meningeal signs Psych: COMMON NORMALS: mental status grossly normal, cooperative and normal affect Skin: COMMON NORMALS: no rashes or lesions noted and turgor normal GENERAL SKIN EXAM: no rashes or lesions noted and turgor normal Course Reevaluation(s): Reevaluation #1: Heart rate dropped from 170s to 110s. It was initially a sinus rhythm at the 110s and then sped back up into the 140s with what looked more like A. fib. I believe the initial EKG was sinus tachycardia but the baseline is very wavy and hard to interpret. With his heart rate down in the 120s to 110s he said he felt better and his blood pressure was 90/70. Time: 11:51 Reevaluation #2: Heart rate returned into the 170s and remain there. Blood pressure remained in the 90s. After the patient got about 750 mL's of fluid I did go ahead and give him a 10 mg IV bolus of Cardizem. Following that his heart rate was back to the 110s and definitely sinus. Consultations: Consultation #1: Dr. Demarco will admit Vital Signs: Vital signs: Vital Signs Temperature 98.6 F 11/07/19 11:32 Pulse Rate 119 H 11/07/19 17:58 Respiratory Rate 20 H 11/07/19 17:00 Blood Pressure 116/69 11/07/19 17:00 Pulse Oximetry 98 11/07/19 17:58 MDM - Arrhythmia/Palpitations Lab Data: Labs: Lab Results 11/07/19 11/07/19 11/07/19 Range/Units 11:28 11:31 11:31 WBC 21.2 H (4.0-10.0) 10^3/ uL RBC 4.64 (4.1-5.3) 10^6/u L Hgb 11.6 L (11.7-16.6) g/dL Hct 39.1 L (42.0-52.0) % MCV 84.3 (80-94) fL MCH 25.0 L (28.0-34.0) pg MCHC 29.7 L (30.0-36.0) g/dL RDW 16.8 H (12.1-15.1) % Plt Count 377 (130-400) 10^3/c mm MPV 9.9 (7.4-10.4) fL Neut % (Auto) 92.8 % Lymph % (Auto) 3.6 % Hardin % (Auto) 2.8 % Eos % (Auto) 0.0 % Baso % (Auto) 0.1 % Neut # (Auto) 19.65 H (1.8-7.7) 10^3/u L Lymph # (Auto) 0.8 (0.8-4.8) 10^3/u L Hardin # (Auto) 0.6 (0.2-0.9) 10^3/u L Eos # (Auto) 0.0 (0.0-0.8) 10^3/u L Baso # (Auto) 0.0 (0.0-0.1) 10^3/u L Nucleated RBC % (a uto) 0 % Nucleated RBCs # 0.0 /100WBC PT 14.70 H (10.5-13.3) SECO NDS INR 1.11 (0.8-1.2) D-Dimer (0-0.59) ug/mIFE U Specimen Type Arterial Sample Site Radial, right ABG pH 7.48 H (7.35-7.45) ABG pCO2 25.7 L (35-45) mmHg ABG pO2 145.0 H (80.0-100.0) mmH g ABG HCO3 19.0 L (22-26) mmol/L ABG Base Excess -3.2 L (-2.0-2.0) mmol/ L Zafar Test Pos Hematocrit 37.0 L (42-52) % O2 Delivery Device Room air Outreach Librarian ID cak Lactate (0.5-2.2) mmol/L Magnesium (1.7-2.3) mg/dL Troponin T Baselin e (0-15) ng/L Procalcitonin (0-0.5) ng/mL Urine Color (Yellow) Urine Appearance (CLEAR) Urine pH (5-7) Ur Specific Gravit y (1.005-1.030) Urine Protein (Negative) Urine Glucose (UA) (Normal) Urine Ketones (Negative) Urine Blood (Negative) Urine Nitrate (Negative) Urine Bilirubin (NEGATIVE) Urine Urobilinogen (Negative) mg/dL Ur Leukocyte Tracie ase (Negative) Blood Type Rho(D) Type Antibody Screen 11/07/19 11/07/19 11/07/19 Range/Units 11:31 11:31 11:31 WBC (4.0-10.0) 10^3/ uL RBC (4.1-5.3) 10^6/u L Hgb (11.7-16.6) g/dL Hct (42.0-52.0) % MCV (80-94) fL MCH (28.0-34.0) pg MCHC (30.0-36.0) g/dL RDW (12.1-15.1) % Plt Count (130-400) 10^3/c mm MPV (7.4-10.4) fL Neut % (Auto) % Lymph % (Auto) % Hardin % (Auto) % Eos % (Auto) % Baso % (Auto) % Neut # (Auto) (1.8-7.7) 10^3/u L Lymph # (Auto) (0.8-4.8) 10^3/u L Hardin # (Auto) (0.2-0.9) 10^3/u L Eos # (Auto) (0.0-0.8) 10^3/u L Baso # (Auto) (0.0-0.1) 10^3/u L Nucleated RBC % (a uto) % Nucleated RBCs # /100WBC PT (10.5-13.3) SECO NDS INR (0.8-1.2) D-Dimer (0-0.59) ug/mIFE U Specimen Type Sample Site ABG pH (7.35-7.45) ABG pCO2 (35-45) mmHg ABG pO2 (80.0-100.0) mmH g ABG HCO3 (22-26) mmol/L ABG Base Excess (-2.0-2.0) mmol/ L Zafar Test Hematocrit (42-52) % O2 Delivery Device Outreach Librarian ID Lactate 2.9 H (0.5-2.2) mmol/L Magnesium 2.0 (1.7-2.3) mg/dL Troponin T Baselin e (0-15) ng/L Procalcitonin 0.18 (0-0.5) ng/mL Urine Color (Yellow) Urine Appearance (CLEAR) Urine pH (5-7) Ur Specific Gravit y (1.005-1.030) Urine Protein (Negative) Urine Glucose (UA) (Normal) Urine Ketones (Negative) Urine Blood (Negative) Urine Nitrate (Negative) Urine Bilirubin (NEGATIVE) Urine Urobilinogen (Negative) mg/dL Ur Leukocyte Tracie ase (Negative) Blood Type O Positive Rho(D) Type Positive Antibody Screen Negative 11/07/19 11/07/19 11/07/19 Range/Units 11:31 11:31 13:16 WBC (4.0-10.0) 10^3/ uL RBC (4.1-5.3) 10^6/u L Hgb (11.7-16.6) g/dL Hct (42.0-52.0) % MCV (80-94) fL MCH (28.0-34.0) pg MCHC (30.0-36.0) g/dL RDW (12.1-15.1) % Plt Count (130-400) 10^3/c mm MPV (7.4-10.4) fL Neut % (Auto) % Lymph % (Auto) % Hardin % (Auto) % Eos % (Auto) % Baso % (Auto) % Neut # (Auto) (1.8-7.7) 10^3/u L Lymph # (Auto) (0.8-4.8) 10^3/u L Hardin # (Auto) (0.2-0.9) 10^3/u L Eos # (Auto) (0.0-0.8) 10^3/u L Baso # (Auto) (0.0-0.1) 10^3/u L Nucleated RBC % (a uto) % Nucleated RBCs # /100WBC PT (10.5-13.3) SECO NDS INR (0.8-1.2) D-Dimer 0.72 H (0-0.59) ug/mIFE U Specimen Type Sample Site ABG pH (7.35-7.45) ABG pCO2 (35-45) mmHg ABG pO2 (80.0-100.0) mmH g ABG HCO3 (22-26) mmol/L ABG Base Excess (-2.0-2.0) mmol/ L Zafar Test Hematocrit (42-52) % O2 Delivery Device Outreach Librarian ID Lactate (0.5-2.2) mmol/L Magnesium (1.7-2.3) mg/dL Troponin T Baselin e 17 H (0-15) ng/L Procalcitonin (0-0.5) ng/mL Urine Color Yellow (Yellow) Urine Appearance Clear (CLEAR) Urine pH 6.5 (5-7) Ur Specific Gravit y 1.015 (1.005-1.030) Urine Protein Neg (Negative) Urine Glucose (UA) Norm (Normal) Urine Ketones Negative (Negative) Urine Blood Neg (Negative) Urine Nitrate Negative (Negative) Urine Bilirubin Neg (NEGATIVE) Urine Urobilinogen Norm (Negative) mg/dL Ur Leukocyte Tracie ase Negative (Negative) Blood Type Rho(D) Type Antibody Screen EKG Data^: EKG 1: EKG interpretation date: 11/07/19 EKG interpretation time: 11:31 Interpretation: Tachycardia with a rate of 178. The computer interpretation was atrial fibrillation but I suspect this is actually sinus tach as I can definitely see P waves in most areas. There is much artifact in the baseline making it difficult to be certain. QRS duration is normal. No clear ST changes. Other EKG comments: Chest X-Ray 11/07/19 11:19 IMPRESSION: Stable appearance of the chest, not significantly changed from 11/05/2019 . 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
[2019-11-07] MEDS: sodium chloride 0.9% 1,000 ML 999 ML IV (11:40)
[2019-11-07 11:42] LABS: Basophils % 0.1 %; Hematocrit 39.1 % (42.0-52.0); Hemoglobin 11.6 g/dL (11.7-16.6); Lymphocytes # 0.8 10^3/uL (0.8-4.8); Lymphocytes % 3.6 %; Mean Corpuscular HGB Conc 29.7 g/dL (30.0-36.0); Mean Corpuscular Volume 84.3 fL (80-94); Mean Platelet Volume 9.9 fL (7.4-10.4); Monocytes # 0.6 10^3/uL (0.2-0.9); Monocytes % 2.8 %; Neutrophils # 19.65 10^3/uL (1.8-7.7); Neutrophils % 92.8 %; Nucleated Red Blood Cells % 0 %; Platelet Count 377 10^3/cmm (130-400); Red Blood Count 4.64 10^6/uL (4.1-5.3); Red Cell Distribution Width 16.8 % (12.1-15.1); White Blood Count 21.2 10^3/uL (4.0-10.0)
[2019-11-07 11:43] LABS: ABG PCO2 25.7 mmHg (35-45); ABG PH Result 7.48 (7.35-7.45); Base Excess ABG -3.2 mmol/L (-2.0-2.0); Blood Gas Allen Test Pos; Blood Gas Sample Site Radial, right; Blood Gas Sample Type Arterial; Oxygen Device ROOM AIR
[2019-11-07 11:52] LABS: INR 1.11 (0.8-1.2)
--- NOTE | 2019-11-07 11:56 | PC.NURSE ---
portable chest xray at bedside
[2019-11-07 12:02] LABS: Lactate (Lactic Acid level) 2.9 mmol/L (0.5-2.2)
[2019-11-07 12:04] LABS: Troponin(5th) Baseline 17 ng/L (0-15)
[2019-11-07] MEDS: morphine 4 mg/mL SDV 1 mL IVP (12:21)
[2019-11-07] MEDS: ondansetron 2 mg/ML SDV 2 mL 4 MG IVP (12:21)
[2019-11-07 12:24] LABS: Procalcitonin 0.18 ng/mL (0-0.5)
--- NOTE | 2019-11-07 12:36 | PC.NURSE ---
Repeat EKG done at 1235 and shown to ER doctor
--- NOTE | 2019-11-07 12:39 | ECG_ITS ---
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 Measurements Intervals Hobbs Rate: 178 P: VA: -1 QRS: 51 QRSD: 73 T: 64 QT: 249 QTc: 429 Interpretive Statements ATRIAL FIBRILLATION WITH RAPID VENTRICULAR RESPONSE POSSIBLE RIGHT VENTRICULAR CONDUCTION DELAY [RSR (QR) IN V1/V2] CRITICAL TEST RESULT Compared to ECG 10/15/2019 12:50:11 Sinus tachycardia no longer present Electronically Signed On 11-07-2019 20:14:15 CDT by Afshin Frey M.D. [id number]
--- NOTE | 2019-11-07 13:20 | ECG_ITS ---
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 Measurements Intervals Wilson Rate: 106 P: 66 NH: 150 QRS: 42 QRSD: 76 T: 60 QT: 331 QTc: 441 Interpretive Statements SINUS TACHYCARDIA POSSIBLE LEFT ATRIAL ENLARGEMENT [-0.1mV P WAVE IN V1/V2] POSSIBLE RIGHT VENTRICULAR CONDUCTION DELAY [RSR (QR) IN V1/V2] SEPTAL MYOCARDIAL INFARCTION , PROBABLY OLD [40+ ms Q WAVE IN V1/V2] Compared to ECG 11/07/2019 12:43:22 No significant changes Electronically Signed On 11-07-2019 20:16:28 CDT by Afshin Frey M.D. [id number]
[2019-11-07 13:48] LABS: Add Urine Microscopic? NO
[2019-11-07 13:52] LABS: Urine Appearance Clear (CLEAR); Urine Color Yellow (Yellow); pH Urine 6.5 (5-7)
[2019-11-07 13:53] LABS: Bilirubin Urine Neg (NEGATIVE); Blood Urine Neg (Negative); Glucose Urine UA Norm (Normal); Ketones Urine Negative (Negative); Leukocyte Esterase Urine Negative (Negative); Nitrate Urine Negative (Negative); Protein Urine Neg (Negative); Specific Gravity, Urine 1.015 (1.005-1.030); Urobilinogen Urine Norm (Negative)
[2019-11-07 13:55] LABS: D Dimer 0.72 ug/mIFEU (0-0.59)
--- NOTE | 2019-11-07 13:59 | PM.HP ---
Providers/Chief Complaint Primary Care Provider: Silverio Spain MD Chief Complaint: FALL, DIZZY, LOW BP CANCER PT History of Present Illness Chalino Jeffrey is a 69 year old male that presents to the emergency department from his radiation oncology visit. He reports he is currently getting chemotherapy as well as radiation. Last chemotherapy treatment Sunday. Radiation treatment was today and following the radiation his heart rate was 180 and he was feeling dizzy so he was sent to the ER. He denies any fever lately. Denies any change in his cough. Does report some hemoptysis around a week ago with initiation of his radiation which she was told was normal. No more shortness of breath than usual. Reports often his blood pressure is low. No chest pain. No vomiting, blood in stool, black or tarry stool. Reports this morning he felt dizzy, and fell over out of bed. He denies loss of consciousness. While in the emergency department several EKGs were done. Initial appears to show atrial fibrillation with rapid ventricular rate. He received some Cardizem, and converted to sinus tachycardia and then has drifted down to almost a normal rhythm. He reports he has some constipation as well, and would like something for this. Review of Systems General: Reports: 10 or more systems reviewed and unremarkable except in HPI and below Const: Denies: fever(s) or chills Eyes: Denies: change in vision ENMT: Denies: throat pain Card: Reports: lightheadedness; Denies: chest pain Resp: Reports: dyspnea; Denies: productive cough GI: Denies: abdominal pain, nausea or vomiting : Denies: flank pain or difficulty urinating Musc: Denies: neck pain Skin/Breast: Denies: rash Neuro: Reports: dizziness; Denies: headache(s) Psych: Denies: anxiety or depression Endo: Denies: polyuria Ignacio/Lymph: Denies: easy bruising All/Imm: Denies: urticaria Medications/Allergies Home Medications Medication Instructions Recorded Confirmed Last Taken Type multivitamin [Multiple Vitamins] 1 tab PO DAILY 08/13/19 11/07/19 11/07/19 08:00 History ferrous sulfate 325 mg PO BID #60 tab 08/15/19 11/07/19 11/07/19 08:00 Rx olanzapine 15 mg tablet 15 mg PO BEDTIME #30 tab 08/20/19 11/07/19 11/06/19 Rx sertraline 100 mg tablet 200 mg PO DAILY #30 tab 08/20/19 11/07/19 11/07/19 08:00 Rx alprazolam 0.5 mg tablet 0.5 mg PO BID PRN #60 tab 08/21/19 11/07/19 10/15/19 Rx metoprolol tartrate 12.5 mg PO BID 08/28/19 11/07/19 11/07/19 08:00 History tamsulosin 0.4 mg PO BEDTIME 10/07/19 11/07/19 11/06/19 History oxycodone-acetaminophen 1 - 2 tab PO Q4H PRN #120 tab 10/21/19 11/07/19 11/06/19 Rx dexamethasone See Rx Instructions .ROUTE .COMPLEX 11/07/19 11/07/19 11/05/19 History lorazepam 0.5 - 1 mg PO TID PRN 11/07/19 11/07/19 11/07/19 History ondansetron 8 mg PO Q8H PRN 11/07/19 11/07/19 Unknown History prochlorperazine maleate 10 mg PO Q4H PRN 11/07/19 11/07/19 11/07/19 08:00 History zolpidem 5 - 10 mg PO BEDTIME PRN 11/07/19 11/07/19 11/06/19 History 5 mg Allergies Allergy/AdvReac Type Severity Reaction Status Date / Time No Known Allergies Allergy Verified 11/07/19 12:16 PFSH Acute PFSH: Medical History (Updated 11/07/19 @ 14:09 by Dimas Demarco MD) Anemia Anorexia nervosa, restricting type Closed left clavicular fracture Generalized anxiety disorder H/O clavicle fracture with hardware Major depressive disorder, recurrent severe without psychotic features Sinus tachycardia SOB (shortness of breath) Squamous cell lung cancer Tachycardia Surgical History H/O neck surgery Hx of cholecystectomy Family History Mother Cancer Bladder Denies family history of Anesthesia complication Bleeding disorder Social History Smoking and tobacco status: former smoker Alcohol intake: former Lives independently: Yes Household members: children Current occupational status: disabled History of recent travel: No Current gender identity: Male Vitals/I&O/Wt Last Vital Signs Temp 98.6 F 11/07/19 11:32 Pulse 108 H 11/07/19 13:20 Resp 23 H 11/07/19 13:20 BP 73/49 11/07/19 13:20 Pulse Ox 98 11/07/19 13:20 11/06/19 11/07/19 11/07/19 22:59 06:59 14:59 Intake Total 1000 / 1000 Balance 1000 / 1000 Weight last 48 hrs Weight 54.885 kg Physical Exam Narrative: EXAM NARRATIVE: General exam demonstrates an elderly white male, reporting no particular concerns. Heart rate approximately 100. HEENT: Pupils equally round. Oropharynx clear. Neck is supple no lymphadenopathy or thyromegaly Cardiovascular slight tachycardia, regular, no murmur Lungs greatly diminished breath sounds right side of chest. Left clear. Abdomen is soft, positive bowel sounds, no obvious organomegaly was deferred Extremities no cyanosis clubbing or edema, cap refill brisk Skin no rash Neuro no focal deficits. Data : 11/07/19 11:31 11/07/19 13:41 Micro: Microbiology 11/07/19 11:54 Blood Culture - Preliminary Blood SPECIMEN COLLECTED 11/07/19 11:31 Blood Culture - Preliminary Blood SPECIMEN COLLECTED Other data: D-dimer is only slightly elevated at 0.72. ABG demonstrates pH of 7.48, PCO2 of 25, PO2 of 145 CMP is pending Lactate elevated at 2.9 Troponin XVII Urinalysis negative Recent TSH normal Chest x-ray no changes from previous, right pleural thickening with right upper lobe scarring, COPD A&P Assessment and plan (1) Atrial fibrillation with rapid ventricular response: Received Cardizem in the emergency department, and patient's rhythm converted to sinus. Although he does not have hypertension, diabetes, or qualify for age and his hypercoagulable state secondary to malignancy I think his risk of CVA is higher than baseline. He also has a significantly higher risk of DVT and pulmonary embolism. Secondary to this I will initiate Eliquis 2.5 mg twice daily. Risks and benefits discussed with the patient in detail including severe life-threatening bleeding. Initiate digoxin 500 mcg IV for control of heart rate, as his blood pressure will not tolerate increasing metoprolol further. Will reevaluate further digoxin dosing tomorrow. Continue metoprolol at current rate Telemetry Fluids Check magnesium, potassium Status: Acute (2) Acute hypotension: IV fluids Monitor closely Status: Acute (3) Leukocytosis: Procalcitonin level is normal. Recently completed 10 days of Levaquin following IV course of imipenem Monitor closely for improvement without antibiotics Status: Acute (4) Squamous cell lung cancer: Currently undergoing chemotherapy and radiation Status: Acute (5) Major depressive disorder, recurrent severe without psychotic features: Continue home medication Status: Acute Additional A&P Information Anemia, stable continue to monitor BPH, continue home meds Constipation. Initiate senna Full code Lovenox will suffice for DVT prophylaxis Attestations Medical Necessity Statement*: Will need less than 2 midnight stay for evaluation and treatment of atrial fibrillation with rapid ventricular rate. Time Spent in Patient Care: Greater than 35 minutes Coding Level of Care Code Acute Associate Media Director for [facility] Fwd Diagnoses Atrial fibrillation with rapid ventricular response I48.91 Acute hypotension I95.9 Leukocytosis D72.829 Squamous cell lung cancer C34.90 Major depressive disorder, recurrent severe without psychotic features F33.2
[2019-11-07 14:13] LABS: Alanine Aminotransferase 32 U/L (0-41); Albumin Level 3.1 g/dL (3.5-5.2); Alkaline Phosphatase 143 IU/L (40-130); Anion Gap 13.6 (5-19); Aspartate Amino Transferase 25 U/L (0-40); Blood Urea Nitrogen 27 mg/dL (8-23); Calcium 7.8 mg/dL (8.5-10.5); Carbon Dioxide 23 mmol/L (22-29); Chloride 104 mmol/L (98-107); Globulin 3.7 g/dL (1.3-4.6); Glomerular Filtration Rate 111.5 mL/min (90-130); Glucose 138 mg/dL (65-115); Osmolality Calculated 283 mOsm/kg (285-295); Potassium 3.6 mmol/L (3.5-5.1); Sodium 137 mmol/L (136-145); Total Bilirubin 0.2 mg/dL (0.15-1.2); Total Protein 6.8 g/dL (6.6-8.7)
[2019-11-07 14:14] LABS: Troponin 5 2HR 17.79 ng/L (0-15); Troponin 5 2HR Delta 0.79 ABS# (0-10)
--- NOTE | 2019-11-07 15:09 | USCV_ITS ---
Chalino Jeffrey Age: 69 Gender: M : 1950 Exam Date: 11/07/2019 15:39 Ordering Phys: Dimas Demarco MD Technologist: Yung Johnson Exam Location: [facility] [place] Indication: AFIB BP: 97 / 62 HR: 107 Rhythm: Sinus Technical Quality: Very technically difficult study MEASUREMENTS (Male / Female) Normal Values 2D ECHO LV Diastolic Diameter PLAX 3.3 cm 4.2 - 5.9 / 3.9 - 5.3 cm LV Systolic Diameter PLAX 2.4 cm IVS Diastolic Thickness 1.0 cm 0.6 - 1.0 / 0.6 - 0.9 cm IVS Systolic Thickness 0.9 cm LVPW Diastolic Thickness 0.8 cm 0.6 - 1.0 / 0.6 - 0.9 cm LVPW Systolic Thickness 1.1 cm LVOT Diameter 2.1 cm LV Ejection Fraction 2D Teich 57.9 % LA Diameter 3.5 cm LA Width 2.8 cm LA Height 3.5 cm RA Width 2.8 cm RA Height 3.3 cm M-MODE LV Diastolic Diameter MM 4.5 cm 4.2 - 5.9 / 3.9 - 5.3 cm LV Systolic Diameter MM 3.3 cm LV Ejection Fraction MM Teich 52.9 % IVS Diastolic Thickness MM 0.8 cm 0.6 - 1.0 / 0.6 - 0.9 cm IVS Systolic Thickness MM 0.9 cm LVPW Diastolic Thickness MM 0.9 cm 0.6 - 1.0 / 0.6 - 0.9 cm LVPW Systolic Thickness MM 1.5 cm RV Diastolic Diameter MM 0.8 cm Aortic Annulus Diameter 3.4 cm LA Ao Ratio MM 1.0 DOPPLER AV Peak Velocity 106.0 cm/s LVOT Peak Velocity 71.0 cm/s AV Area Cont Eq vti 2.7 cm squared AV Area Cont Eq pk 2.3 cm squared MV Area PHT 5.6 cm squared Mitral E to A Ratio 1.6 MV E' Velocity 56.0 cm/s TR Peak Velocity 118.0 cm/s TR Peak Gradient 5.5 mmHg TV Peak E Velocity 83.0 cm/s Right Atrial Pressure 3.0 mmHg Pulmonary Artery Systolic Pressu 8.6 mmHg PV Peak Velocity 121.0 cm/s FINDINGS Left Ventricle Technically very difficult study because of poor ultrasonic window. The left ventricular size and ejection fraction appears to be within normal limits . Segmental wall motion analysis difficult. Right Ventricle Right ventricle ,possibly of normal size and ejection fraction Right Atrium Right atrium not well visualized. Left Atrium Possibly of normal size Mitral Valve No gross abnormalities noted Aortic Valve Aortic valve appears to be thickened and stenotic. The leaflets morphology could not be delineated well Tricuspid Valve Tricuspid valve not well visualized. Pulmonic Valve Pulmonic valve not well visualized. Pericardium No pericardial effusion. Aorta Normal aortic annulus size. CONCLUSIONS Possibly normal LV size and ejection fraction. Aortic valve appears to be stenotic. Possibly normal RV size and ejection fraction. No pericardial effusion Technically very limited study. No previous study is available for comparison. Dr Lopez Gutierrez MD FACC (Electronically Signed) Final Date: 09 November 2019 19:41 S
[2019-11-07] MEDS: sodium chloride 0.9% 1,000 ML 50 ML IV (15:35)
[2019-11-07] MEDS: digoxin 250 mcg/ml INJ 2 mL 500 MCG IVP (15:38)
--- NOTE | 2019-11-07 16:35 | PC.NURSE ---
Admissions Note Patient arrived to floor from ER [facility]. Patient ambulated to bed. Patient denies any dizziness, palpitations, or chest pain at this time. See VS and physical assessments. Dr. Demarco gave verbal instruction to nurse to notify physician if patient HR becomes greater than 120 in sinus tach or if rhythm returns to a-fib. Administer Digoxin and continue to monitor. Patient oriented to room and call light. Patient does not have any further requests at this time.
--- NOTE | 2019-11-07 17:01 | PC.NURSE ---
Physician Claification Nurse clarified evening metoprolol administration with Dr. Demarco as SBP averaging high 90s- low 100s. Physician gave nurse telephone order to administer metoprolol if SBP is greater than 100. RBVO. Nurse to continue to monitor.
--- NOTE | 2019-11-07 17:20 | ECG_ITS ---
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 Measurements Intervals [place] Rate: 119 P: 69 MA: 147 QRS: 48 QRSD: 72 T: 66 QT: 314 QTc: 442 Interpretive Statements SINUS TACHYCARDIA POSSIBLE LEFT ATRIAL ENLARGEMENT [-0.1mV P WAVE IN V1/V2] POSSIBLE RIGHT VENTRICULAR CONDUCTION DELAY [RSR (QR) IN V1/V2] ABNORMAL RHYTHM ECG Compared to ECG 11/07/2019 13:30:08 Myocardial infarct finding no longer present Electronically Signed On 11-07-2019 20:16:45 CDT by Afshin Frey M.D. [id number]
[2019-11-07 17:39] LABS: Troponin 5 6HR 19.04 ng/L (0-15); Troponin 5 6HR Delta 2.04 ng/L (0-12)
[2019-11-07] MEDS: metoprolol tartrate 25 mg Tablet 12.5 MG PO (17:48)
[2019-11-07] MEDS: apixaban 5 mg Tablet 2.5 MG PO (17:49)
[2019-11-07] MEDS: sennosides 8.6 mg Tablet 17.2 MG PO (17:50)
--- NOTE | 2019-11-07 18:23 | PC.NURSE ---
Shift Summary Patient has remained ST 110s-120s on telemetry. Other VSS. Patient denies any pain. Patient resting in bed watching TV, even nonlabored breathing. No further needs identified at this time.
--- NOTE | 2019-11-07 19:24 | PC.NURSE ---
Rounding: Patient resting in bed watching TV. Patient denies any pain or needs. Will continue to monitor.
[2019-11-07] MEDS: oxyCODONE-APAP 5-325 mg Tablet 1 TAB PO (20:38)
[2019-11-07] MEDS: tamsulosin 0.4 mg Capsule PO (20:38)
[2019-11-07] MEDS: OLANZapine 10 mg TABLET 15 MG PO (20:39)
[2019-11-07] MEDS: LORazepam 0.5 mg Tablet 0.25 MG PO (20:40)
--- NOTE | 2019-11-07 21:26 | PC.NURSE ---
Patient requested his Ambien for sleep. Informed Doctor Ronak medications given to patient and Ambien 5mg ordered to help patient rest as patient requested. Doctor will put in the order.
[2019-11-07] MEDS: zolpidem 5 mg Tablet PO (21:34)
[2019-11-08] VITALS: BP 87/69; PULSE 103; RESP 95; TEMP 36.8; O2SAT 95
[2019-11-08 04:00] VITALS: BP 90/65; PULSE 112; RESP 21; TEMP 36.8; O2SAT 95
[2019-11-08 04:40] LABS: Basophils % 0.2 %; Eosinophils % 0.3 %; Hematocrit 31.6 % (42.0-52.0); Hemoglobin 9.3 g/dL (11.7-16.6); Lymphocytes # 0.8 10^3/uL (0.8-4.8); Lymphocytes % 9.4 %; Mean Corpuscular HGB Conc 29.4 g/dL (30.0-36.0); Mean Corpuscular Volume 84.9 fL (80-94); Mean Platelet Volume 10.1 fL (7.4-10.4); Monocytes # 0.4 10^3/uL (0.2-0.9); Monocytes % 4.2 %; Neutrophils # 7.47 10^3/uL (1.8-7.7); Neutrophils % 85.3 %; Nucleated Red Blood Cells % 0 %; Platelet Count 238 10^3/cmm (130-400); Red Blood Count 3.72 10^6/uL (4.1-5.3); Red Cell Distribution Width 16.9 % (12.1-15.1); White Blood Count 8.8 10^3/uL (4.0-10.0)
[2019-11-08 05:04] LABS: Anion Gap 12.2 (5-19); Blood Urea Nitrogen 21 mg/dL (8-23); Carbon Dioxide 25 mmol/L (22-29); Chloride 106 mmol/L (98-107); Glomerular Filtration Rate 111.5 mL/min (90-130); Glucose 79 mg/dL (65-115); Osmolality Calculated 284 mOsm/kg (285-295); Potassium 4.2 mmol/L (3.5-5.1); Sodium 139 mmol/L (136-145)
--- NOTE | 2019-11-08 05:23 | PC.NURSE ---
End of shift: Patient is has had a uneventful shift. Patient has rested well this shift. Patient remains alert and oriented. Will continue to monitor.
[2019-11-08 06:58] VITALS: BP 100/71; PULSE 119; RESP 17; TEMP 36.9; O2SAT 96
[2019-11-08] MEDS: digoxin 250 mcg/ml INJ 2 mL IVP (08:11)
[2019-11-08] MEDS: sennosides 8.6 mg Tablet 17.2 MG PO (08:11)
[2019-11-08] MEDS: metoprolol tartrate 25 mg Tablet 12.5 MG PO (08:11)
[2019-11-08] MEDS: multivitamin therapeutic Tablet 1 TAB PO (08:12)
[2019-11-08] MEDS: apixaban 5 mg Tablet 2.5 MG PO (08:12)
[2019-11-08] MEDS: sertraline 100 mg Tablet 200 MG PO (08:39)
[2019-11-08 10:41] VITALS: RESP 18
[2019-11-08] MEDS: oxyCODONE-APAP 5-325 mg Tablet 1 TAB PO (10:41)
[2019-11-08] MEDS: sodium chloride 0.9% 1,000 ML 50 ML IV (10:46)
[2019-11-08 10:47] VITALS: BP 94/69; PULSE 113; RESP 20; TEMP 37.2; O2SAT 95
--- NOTE | 2019-11-08 13:10 | PM.DCS ---
Discharge Providers Date of Admission: 11/07/19 13:36 Date of Discharge: November 08, 2019 Attending Provider at Admission: Dimas Demarco MD Attending Provider at Discharge: Dimas Demarco MD Primary Care Provider: Silverio Spain MD Diagnoses at Discharge Discharge Diagnosis (1) Atrial fibrillation with rapid ventricular response: Status: Acute Problem details: Converted to sinus tachycardia in the ER Initiated Eliquis Added digoxin to metoprolol. (2) Acute hypotension: Status: Acute (3) Leukocytosis: Status: Acute (4) Squamous cell lung cancer: Status: Acute (5) Major depressive disorder, recurrent severe without psychotic features: Status: Acute Reason for Visit Reason for Visit: FALL, DIZZY, LOW BP CANCER PT Hospital Course Hospital Course: Chalino is a 69-year-old white male who following his radiation treatment was noted to have a significantly elevated heart rate 1 60-1 80. Diagnosed with atrial fibrillation with rapid ventricular rate in the ER and given Cardizem, with improvement of heart rate to sinus tachycardia, 100. Electrolytes normal. Troponin with no significant delta. EKG with no ischemic changes. White blood cell count elevated but chest x-ray without new infiltrate and pro calcitonin normal so no antibiotics were started. During his hospital course digoxin was added to his regimen. Metoprolol at low-dose was continued but not increased secondary to borderline hypotension which is his baseline. The following day his heart rate ranged from 105-1 20, sinus tachycardia at rest which is what his baseline was last admission and at discharge. White blood cell count had decreased to normal. He had had no fevers. He felt back to his baseline, and therefore was discharged home. He refused home health. He will follow-up with his primary in 3 days. Physical Exam Narrative: EXAM NARRATIVE: General exam no apparent distress Cardiovascular tachycardic, regular with a heart rate of 110 during my examination. Lungs with significantly diminished breath sounds right lung Abdomen is soft with positive bowel sounds Extremities no cyanosis clubbing or edema Discharge Data Data Completed and Pending: Completed Studies During Hospitalization Category Date Time Status XR chest 1V radha ble [id number] Stat Exams 11/07/19 11:19 Completed Pending at discharge Category Date Time Status Blood Culture Sta t Lab 11/07/19 11:54 Results CV echo complete* [id number] Routine Ultrasound 11/07/19 15:09 Taken Labs from last 24 hours 11/08/19 11/08/1911/06/20 03:38 03:38 17:20 WBC 8.8 RBC 3.72 L Hgb 9.3 L Hct 31.6 L MCV 84.9 MCH 25.0 L MCHC 29.4 L RDW 16.9 H Plt Count 238 MPV 10.1 Neut % (Auto) 85.3 Lymph % (Auto) 9.4 [place] % (Auto) 4.2 Eos % (Auto) 0.3 Baso % (Auto) 0.2 Neut # (Auto) 7.47 Lymph # (Auto) 0.8 [place] # (Auto) 0.4 Eos # (Auto) 0.0 Baso # (Auto) 0.0 Nucleated RBC % (a uto) 0 Nucleated RBCs # 0.0 D-Dimer Sodium 139 Potassium 4.2 Chloride 106 Carbon Dioxide 25 Anion Gap 12.2 BUN 21 Creatinine 0.7 GFR Calculation 111.5 Glucose 79 Calculated Osmolal ity 284 L Calcium 8.0 L Magnesium Total Bilirubin AST ALT Alkaline Phosphata se Troponin T 120 Min [place] Troponin T Troponin T Hi Sens 6Hr 19.04 H Troponin T Hi Sens 6Hr [place] 2.04 Total Protein Albumin Globulin Urine Color Urine Appearance Urine pH Ur Specific Gravit y Urine Protein Urine Glucose (UA) Urine Ketones Urine Blood Urine Nitrate Urine Bilirubin Urine Urobilinogen Ur Leukocyte Tracie ase 11/07/19 11/07/19 11/07/19 13:41 13:41 13:41 WBC RBC Hgb Hct MCV MCH MCHC RDW Plt Count MPV Neut % (Auto) Lymph % (Auto) [place] % (Auto) Eos % (Auto) Baso % (Auto) Neut # (Auto) Lymph # (Auto) [place] # (Auto) Eos # (Auto) Baso # (Auto) Nucleated RBC % (a uto) Nucleated RBCs # D-Dimer Sodium 137 Potassium 3.6 Chloride 104 Carbon Dioxide 23 Anion Gap 13.6 BUN 27 H Creatinine 0.7 GFR Calculation 111.5 Glucose 138 H Calculated Osmolal ity 283 L Calcium 7.8 L Magnesium 2.0 Total Bilirubin 0.2 AST 25 ALT 32 Alkaline Phosphata se 143 H Troponin T 120 Min [place] 17.79 H Delta Troponin T 0.79 Troponin T Hi Sens 6Hr Troponin T Hi Sens 6Hr [place] Total Protein 6.8 Albumin 3.1 L Globulin 3.7 Urine Color Urine Appearance Urine pH Ur Specific Gravit y Urine Protein Urine Glucose (UA) Urine Ketones Urine Blood Urine Nitrate Urine Bilirubin Urine Urobilinogen Ur Leukocyte Tracie ase 11/07/19 11/07/19 13:16 11:31 WBC RBC Hgb Hct MCV MCH MCHC RDW Plt Count MPV Neut % (Auto) Lymph % (Auto) [place] % (Auto) Eos % (Auto) Baso % (Auto) Neut # (Auto) Lymph # (Auto) [place] # (Auto) Eos # (Auto) Baso # (Auto) Nucleated RBC % (a uto) Nucleated RBCs # D-Dimer 0.72 H Sodium Potassium Chloride Carbon Dioxide Anion Gap BUN Creatinine GFR Calculation Glucose Calculated Osmolal ity Calcium Magnesium Total Bilirubin AST ALT Alkaline Phosphata se Troponin T 120 Min [place] Troponin T Troponin T Hi Sens 6Hr Troponin T Hi Sens 6Hr [place] Total Protein Albumin Globulin Urine Color Yellow Urine Appearance Clear Urine pH 6.5 Ur Specific Gravit y 1.015 Urine Protein Neg Urine Glucose (UA) Norm Urine Ketones Negative Urine Blood Neg Urine Nitrate Negative Urine Bilirubin Neg Urine Urobilinogen Norm Ur Leukocyte Tracie ase Negative Vitals: Last Vital Signs Temp 98.9 F 11/08/19 10:47 Pulse 113 H 11/08/19 10:47 Resp 20 H 11/08/19 10:47 BP 94/69 11/08/19 10:47 Pulse Ox 95 11/08/19 10:47 Discharge Plan Discharge Patient Disposition: Home Condition: Stable Prescriptions: New Eliquis 5 mg Tablet 2.5 mg PO BID Qty: 60 RF: 0 digoxin 250 mcg (0.25 mg) tablet 250 mcg PO DAILY Qty: 30 RF: 0 Continued Zoloft 100 mg tablet 200 mg PO DAILY Qty: 30 RF: 2 Zyprexa 15 mg tablet 15 mg PO BEDTIME Qty: 30 RF: 2 alprazolam [Xanax] 0.5 mg tablet 0.5 mg PO BID PRN (Reason: anxiety) Qty: 60 RF: 1 multivitamin [Multiple Vitamins] Tablet 1 tab PO DAILY RF: 0 ferrous sulfate 325 mg (65 mg iron) tablet 325 mg PO BID Qty: 60 RF: 2 metoprolol tartrate 25 mg tablet 12.5 mg PO BID RF: 0 tamsulosin 0.4 mg capsule 0.4 mg PO BEDTIME RF: 0 oxycodone-acetaminophen 5-325 mg Tablet 1 - 2 tab PO Q4H PRN (Reason: Moderate To Severe Pain) Qty: 120 RF: 0 prochlorperazine maleate 10 mg tablet 10 mg PO Q4H PRN (Reason: mild nausea) RF: 0 ondansetron 8 mg tablet,disintegrating 8 mg PO Q8H PRN (Reason: unknown) RF: 0 dexamethasone 4 mg tablet See Rx Instructions .ROUTE .COMPLEX RF: 0 zolpidem 5 mg tablet 5 - 10 mg PO BEDTIME PRN (Reason: Sleep) RF: 0 lorazepam 1 mg tablet 0.5 - 1 mg PO TID PRN (Reason: unknown) RF: 0 Referrals: Silverio Spain MD [Primary Care Provider] - 1-3 days Discharge Diet: Usual diet Discharge Activity: Increase activity as tolerated Discharge Attestations Time Spent in Discharge Care*: greater than 30 min Quality Metrics Clinical Quality Measures During this hospital stay, did patient experience: None Coding Level of Care Code Acute Sieve Maker for jamaal Fwd Diagnoses Atrial fibrillation with rapid ventricular response I48.91 Acute hypotension I95.9 Leukocytosis D72.829 Squamous cell lung cancer C34.90 Major depressive disorder, recurrent severe without psychotic features F33.2
[2019-11-08 13:26] VITALS: BP 94/69; PULSE 113; RESP 20; TEMP 37.2; O2SAT 95
== END 2019-11-08 14:12 | disposition home or self-care (01) ==
LOC: ER 14:04 → CSU 14:17
PROVIDERS: Emergency Medicine; Admitting Provider Internal Medicine; PCP Family Medicine; Visit Provider Internal Medicine
DX: I48.91 Unspecified atrial fibrillation (principal); I95.9 Hypotension, unspecified; D72.829 Elevated white blood cell count, unspecified; C34.90 Malignant neoplasm of unspecified part of unspecified bronchus or lung; F33.2 Major depressive disorder, recurrent severe without psychotic features; D64.9 Anemia, unspecified; K59.00 Constipation, unspecified; Z79.891 Long term (current) use of opiate analgesic; Z87.891 Personal history of nicotine dependence
CPT/HCPCS: 12345; 36415; 36600; 71045; 80048; 80053; 81003; 82803; 83605; 83735; 84145; 84484; 85025; 85378; 85610; 86850; 86900; 87040; 93005; 93306; 96361; 96365; 96366; 96375; 99284; 99285; G0378; J0743; J1160; J2270; J2405; J3490; J7030

== ENCOUNTER 2019-11-12 12:09 | Emergency (ER) | payer MEDICARE, MEDICAID, SELFPAY ==
[2019-11-12 12:13] VITALS: BMI 18.8
[2019-11-12 12:15] VITALS: BP 132/84; PULSE 113; RESP 18; TEMP 36.8; O2SAT 98
--- NOTE | 2019-11-12 12:20 | ECG_ITS ---
[facility] Test Date: 2019-11-12 Pat Name: Chalino Jeffrey Department: Room: Gender: Male Client Service Associate: : 1950 Requested By: Frandy Miller Order Number: [id number] Vicky MD: Lopez Gutierrez M.D. Measurements Intervals [place] Rate: 111 P: 72 NC: 161 QRS: 49 QRSD: 67 T: 70 QT: 298 QTc: 405 Interpretive Statements SINUS TACHYCARDIA ABNORMAL RHYTHM ECG Compared to ECG 11/07/2019 17:46:30 No significant changes Electronically Signed On 11-13-2019 0:20:47 CDT by Lopez Gutierrez M.D. [id number]
--- NOTE | 2019-11-12 12:21 | XRR_ITS ---
PROCEDURE INFORMATION: Exam: XR Chest, 1 View Exam date and time: 11/12/2019 12:22 PM Age: 69 years old Clinical indication: Cough and dyspnea; Additional info: Dyspnea/cough TECHNIQUE: Imaging protocol: XR of the chest Views: 1 view. COMPARISON: CR XR chest 1V portable [id number] 11/07/2019 11:51 AM FINDINGS: Tubes, catheters and devices: Left chest port in place, unchanged. Lungs: See Heart/Mediastinum finding. Pleural space: See heart/mediastinum below. No pneumothorax. Heart/Mediastinum: Continued right upper lobe mass/consolidation with mediastinal extension and surrounding right apical region pleural fluid or pleural thickening. Probable increasing right upper lung region volume loss with further elevation of right hemidiaphragm. Bones/joints: Unremarkable. XR/XR chest 1V portable [id number] IMPRESSION: Continued right upper lobe mass/consolidation with mediastinal extension and surrounding right apical region pleural fluid or pleural thickening. Probable increasing right upper lung region volume loss with further elevation of right hemidiaphragm.
--- NOTE | 2019-11-12 12:39 | ED_ITS ---
HPI - General Adult General: Chief complaint: General Medical Stated complaint: sent from cancer treatment Time Seen by Provider: 11/12/19 12:20 History of Present Illness: HPI narrative: 69-year-old male sent here from the cancer center. This morning he was supposed to go to radiation he felt very weak he has fallen 3 times as several near syncopal-like episodes he did not injure himself when he fell is not actually lost consciousness he was recently hospitalized for A. fib with a RVR and was started on Eliquis when he went home he was discharged 4 days ago. He had a little bit of rectal bleeding with blood on the toilet paper this morning but no recognizable blood in the stool or on the feces itself. He denies any chest pain no respiratory symptoms at all he is not had any cough or hemoptysis. Onset (ago): hour(s) Radiation: non-radiation Severity: moderate Quality: burning and aching Pain Consistency: intermittent Relieving factors: none Associated symptoms: Deny chest pain, dyspnea, malaise, nausea, rash or vomiting Review of Systems Const: Denies: fever(s), chills, body aches, change in appetite, fatigue or malaise ENMT: Denies: throat pain, ear or mastoid pain, nasal discharge or nasal congestion Card: Denies: chest pain, edema, dyspnea on exertion or orthopnea Resp: Denies: dyspnea, productive cough or non-productive cough GI: Denies: abdominal pain, nausea, vomiting, hematemesis, coffee ground emesis, diarrhea, constipation, bloating, hematochezia or melena : Denies: flank pain, dysuria, urinary frequency or urinary urgency Skin/Breast: Denies: rash or pruritus PFSH ED PFSH: Medical History Anemia Anorexia nervosa, restricting type Closed left clavicular fracture Generalized anxiety disorder H/O clavicle fracture with hardware Major depressive disorder, recurrent severe without psychotic features Sinus tachycardia SOB (shortness of breath) Squamous cell lung cancer Tachycardia Surgical History H/O neck surgery Hx of cholecystectomy Family History Mother Cancer Bladder Denies family history of Anesthesia complication Bleeding disorder Social History Smoking and tobacco status: former smoker Alcohol intake: former Lives independently: Yes Household members: children Current occupational status: disabled History of recent travel: No Current gender identity: Male Physical Exam Const: COMMON NORMALS: no acute distress GENERAL APPEARANCE: cooperative and comfortable ORIENTATION/CONSCIOUSNESS: Yes awake, Yes oriented to person, Yes oriented to place and Yes oriented to time HENMT: COMMON NORMALS: normocephalic, atraumatic, hearing grossly normal bilaterally, external ears normal, EAC's normal, TM's normal bilaterally, Normal nasal mucous membranes and turbinates present, moist oral mucous membranes and oropharynx normal HEAD & SCALP: normocephalic and atraumatic NOSE: Normal nasal mucous membranes and turbinates present EXTERNAL EAR: Yes external ears normal EXTERNAL AUDITORY CANAL: EAC's normal TYMPANIC MEMBRANE: TM's normal bilaterally Eye: COMMON NORMALS: Equal, round and reactive pupils present, EOMs intact bilaterally, conjunctivae normal and no scleral icterus CONJUNCTIVA: Yes conjunctivae normal PUPIL: Yes Equal, round and reactive pupils present Neck/C-Spine: COMMON NORMALS: full ROM, no lymphadenopathy, supple and no JVD Lymph: LYMPHATIC: no lymphadenopathy noted and no lymphedema noted Resp: COMMON NORMALS: normal respiratory effort, No retractions, No use of accessory muscles and clear to auscultation bilaterally AUSCULTATION: clear to auscultation bilaterally Cardio: COMMON NORMALS: no JVD, regular rate, regular rhythm and No murmurs present (Cardio) RATE: regular rate RHYTHM: regular rhythm GI: COMMON NORMALS: Soft to palpation and No hepatosplenomegaly present AUSCULTATION: Yes normoactive bowel sounds PALPATION: Yes Soft to palpation, No Tenderness to palpation present (GI), No Guarding due to palpation present (GI) and Yes No hepatosplenomegaly present Extremity: COMMON NORMALS: normal to inspection, capillary refill normal, no clubbing, cyanosis or edema, no calf tenderness and no pedal edema Neuro: SENSORIUM/ORIENTATION: Yes oriented to person, Yes oriented to place and Yes oriented to time Skin: COMMON NORMALS: no rashes or lesions noted GENERAL SKIN EXAM: no rashes or lesions noted Course Vital Signs: Vital signs: Vital Signs Temperature 98.2 F 11/12/19 12:15 Pulse Rate 110 H 11/12/19 16:05 Respiratory Rate 16 11/12/19 16:05 Blood Pressure 135/88 11/12/19 16:05 Pulse Oximetry 97 11/12/19 16:05 MDM - General Adult MDM Narrative: Medical decision making narrative: The only rectal bleeding the patient has had is been small amount of streaking on the stool is not significantly discolored the toilet water. He is also noticed little bit of blood on the paper. He is feeling much better he prefer to go home we will go ahead and discharge home he needs to have a repeat hemoglobin tomorrow with his regular doctor if he has any worsening or change return to the emergency room. His hemoglobin today is actually improved from recent. Lab Data: Labs: Lab Results 11/12/19 11/12/19 11/12/19 Range/Units 13:09 13:09 13:09 WBC 6.8 (4.0-10.0) 10^3/ uL RBC 4.11 (4.1-5.3) 10^6/u L Hgb 10.4 L (11.7-16.6) g/dL Hct 35.0 L (42.0-52.0) % MCV 85.2 (80-94) fL MCH 25.3 L (28.0-34.0) pg MCHC 29.7 L (30.0-36.0) g/dL RDW 16.5 H (12.1-15.1) % Plt Count 272 (130-400) 10^3/c mm MPV 10.0 (7.4-10.4) fL Neut % (Auto) 92.8 % Lymph % (Auto) 4.8 % [place] % (Auto) 1.6 % Eos % (Auto) 0.0 % Baso % (Auto) 0.1 % Neut # (Auto) 6.33 (1.8-7.7) 10^3/u L Lymph # (Auto) 0.3 L (0.8-4.8) 10^3/u L [place] # (Auto) 0.1 L (0.2-0.9) 10^3/u L Eos # (Auto) 0.0 (0.0-0.8) 10^3/u L Baso # (Auto) 0.0 (0.0-0.1) 10^3/u L Nucleated RBC % (a uto) 0 % Nucleated RBCs # 0.0 /100WBC Sodium 133 L (136-145) mmol/L Potassium 4.8 (3.5-5.1) mmol/L Chloride 98 (98-107) mmol/L Carbon Dioxide 23 (22-29) mmol/L Anion Gap 16.8 (5-19) BUN 19 (8-23) mg/dL Creatinine 0.6 L (0.7-1.2) mg/dL GFR Calculation 133.2 H (90-130) mL/min Glucose 124 H (65-115) mg/dL Calculated Osmolal ity 274 L (285-295) mOsm/k g Lactic Acid 1.6 (0.5-2.2) mmol/L Calcium 9.3 (8.5-10.5) mg/dL Total Bilirubin 0.2 (0.15-1.2) mg/dL AST 17 (0-40) U/L ALT 20 (0-41) U/L Alkaline Phosphata se 133 H (40-130) IU/L Troponin T Baselin e (0-15) ng/L Troponin T 120 Min ede (0-15) ng/L Delta Troponin T (0-10) ABS# Total Protein 7.7 (6.6-8.7) g/dL Albumin 3.6 (3.5-5.2) g/dL Globulin 4.1 (1.3-4.6) g/dL Urine Color (Yellow) Urine Appearance (CLEAR) Urine pH (5-7) Ur Specific Gravit y (1.005-1.030) Urine Protein (Negative) Urine Glucose (UA) (Normal) Urine Ketones (Negative) Urine Blood (Negative) Urine Nitrate (Negative) Urine Bilirubin (NEGATIVE) Urine Urobilinogen (Negative) mg/dL Ur Leukocyte Tracie ase (Negative) 11/12/19 11/12/19 11/12/19 Range/Units 13:09 14:00 15:26 WBC (4.0-10.0) 10^3/ uL RBC (4.1-5.3) 10^6/u L Hgb (11.7-16.6) g/dL Hct (42.0-52.0) % MCV (80-94) fL MCH (28.0-34.0) pg MCHC (30.0-36.0) g/dL RDW (12.1-15.1) % Plt Count (130-400) 10^3/c mm MPV (7.4-10.4) fL Neut % (Auto) % Lymph % (Auto) % [place] % (Auto) % Eos % (Auto) % Baso % (Auto) % Neut # (Auto) (1.8-7.7) 10^3/u L Lymph # (Auto) (0.8-4.8) 10^3/u L [place] # (Auto) (0.2-0.9) 10^3/u L Eos # (Auto) (0.0-0.8) 10^3/u L Baso # (Auto) (0.0-0.1) 10^3/u L Nucleated RBC % (a uto) % Nucleated RBCs # /100WBC Sodium (136-145) mmol/L Potassium (3.5-5.1) mmol/L Chloride (98-107) mmol/L Carbon Dioxide (22-29) mmol/L Anion Gap (5-19) BUN (8-23) mg/dL Creatinine (0.7-1.2) mg/dL GFR Calculation (90-130) mL/min Glucose (65-115) mg/dL Calculated Osmolal ity (285-295) mOsm/k g Lactic Acid (0.5-2.2) mmol/L Calcium (8.5-10.5) mg/dL Total Bilirubin (0.15-1.2) mg/dL AST (0-40) U/L ALT (0-41) U/L Alkaline Phosphata se (40-130) IU/L Troponin T Baselin e 8 (0-15) ng/L Troponin T 120 Min ede 10.19 (0-15) ng/L Delta Troponin T 2.19 (0-10) ABS# Total Protein (6.6-8.7) g/dL Albumin (3.5-5.2) g/dL Globulin (1.3-4.6) g/dL Urine Color Yellow (Yellow) Urine Appearance Clear (CLEAR) Urine pH 7 (5-7) Ur Specific Gravit y 1.005 (1.005-1.030) Urine Protein Neg (Negative) Urine Glucose (UA) Norm (Normal) Urine Ketones Negative (Negative) Urine Blood Neg (Negative) Urine Nitrate Negative (Negative) Urine Bilirubin Neg (NEGATIVE) Urine Urobilinogen Norm (Negative) mg/dL Ur Leukocyte Tracie ase Negative (Negative) Discharge Plan Discharge Patient Disposition: Home Clinical Impression: Hematochezia, Anemia, Metastatic lung cancer (metastasis from lung to other site) Condition: Stable Prescriptions: New sennosides-docusate sodium 8.6-50 mg capsule 1 tab-cap PO BID Qty: 60 RF: 6 No Action Zoloft 100 mg tablet 200 mg PO DAILY Qty: 30 RF: 2 Zyprexa 15 mg tablet 15 mg PO BEDTIME Qty: 30 RF: 2 alprazolam [Xanax] 0.5 mg tablet 0.5 mg PO BID PRN (Reason: anxiety) Qty: 60 RF: 1 multivitamin [Multiple Vitamins] Tablet 1 tab PO DAILY RF: 0 ferrous sulfate 325 mg (65 mg iron) tablet 325 mg PO BID Qty: 60 RF: 2 metoprolol tartrate 25 mg tablet 12.5 mg PO BID RF: 0 tamsulosin 0.4 mg capsule 0.4 mg PO BEDTIME RF: 0 oxycodone-acetaminophen 5-325 mg Tablet 1 - 2 tab PO Q4H PRN (Reason: Moderate To Severe Pain) Qty: 120 RF: 0 prochlorperazine maleate 10 mg tablet 10 mg PO Q4H PRN (Reason: mild nausea) RF: 0 ondansetron 8 mg tablet,disintegrating 8 mg PO Q8H PRN (Reason: unknown) RF: 0 dexamethasone 4 mg tablet See Rx Instructions .ROUTE .COMPLEX RF: 0 zolpidem 5 mg tablet 5 - 10 mg PO BEDTIME PRN (Reason: Sleep) RF: 0 lorazepam 1 mg tablet 0.5 - 1 mg PO TID PRN (Reason: unknown) RF: 0 Eliquis 5 mg Tablet 2.5 mg PO BID Qty: 60 RF: 0 digoxin 250 mcg (0.25 mg) tablet 250 mcg PO DAILY Qty: 30 RF: 0 Discharge Orders: Discharge Order (Routine); Ordered 11/12/19 Ordered By: Frandy Ingram Referrals: Silverio Spain MD [Primary Care Provider] - Discharge Diet: Usual diet Discharge Activity: Resume usual activity Activity Restrictions/Additional Instructions: Follow-up with your primary care doctor tomorrow for repeat hemoglobin Discharge Date/Time: 11/12/19 16:07 Coding Level of Care Code ED Candy Maker for Chg Fwd Exam Comprehensive
[2019-11-12 13:14] LABS: Basophils % 0.1 %; Hemoglobin 10.4 g/dL (11.7-16.6); Lymphocytes # 0.3 10^3/uL (0.8-4.8); Lymphocytes % 4.8 %; Mean Corpuscular HGB Conc 29.7 g/dL (30.0-36.0); Mean Corpuscular Hemoglobin 25.3 pg (28.0-34.0); Mean Corpuscular Volume 85.2 fL (80-94); Monocytes # 0.1 10^3/uL (0.2-0.9); Monocytes % 1.6 %; Neutrophils # 6.33 10^3/uL (1.8-7.7); Neutrophils % 92.8 %; Nucleated Red Blood Cells % 0 %; Platelet Count 272 10^3/cmm (130-400); Red Blood Count 4.11 10^6/uL (4.1-5.3); Red Cell Distribution Width 16.5 % (12.1-15.1); White Blood Count 6.8 10^3/uL (4.0-10.0)
[2019-11-12 13:30] LABS: Lactic Sepsis W/Reflex 1.6 mmol/L (0.5-2.2)
[2019-11-12 13:31] LABS: Alanine Aminotransferase 20 U/L (0-41); Albumin Level 3.6 g/dL (3.5-5.2); Alkaline Phosphatase 133 IU/L (40-130); Anion Gap 16.8 (5-19); Aspartate Amino Transferase 17 U/L (0-40); Blood Urea Nitrogen 19 mg/dL (8-23); Calcium 9.3 mg/dL (8.5-10.5); Carbon Dioxide 23 mmol/L (22-29); Chloride 98 mmol/L (98-107); Globulin 4.1 g/dL (1.3-4.6); Glomerular Filtration Rate 133.2 mL/min (90-130); Glucose 124 mg/dL (65-115); Osmolality Calculated 274 mOsm/kg (285-295); Potassium 4.8 mmol/L (3.5-5.1); Sodium 133 mmol/L (136-145); Total Bilirubin 0.2 mg/dL (0.15-1.2); Total Protein 7.7 g/dL (6.6-8.7)
[2019-11-12 14:03] LABS: Troponin(5th) Baseline 8 ng/L (0-15)
[2019-11-12] MEDS: ondansetron 2 mg/ML SDV 2 mL 4 MG IVP (14:06)
[2019-11-12] MEDS: sodium chloride 0.9% 1,000 ML 999 ML IV (14:06)
[2019-11-12 14:12] LABS: Add Urine Microscopic? NO
[2019-11-12 14:18] LABS: Bilirubin Urine Neg (NEGATIVE); Blood Urine Neg (Negative); Glucose Urine UA Norm (Normal); Ketones Urine Negative (Negative); Leukocyte Esterase Urine Negative (Negative); Nitrate Urine Negative (Negative); Protein Urine Neg (Negative); Specific Gravity, Urine 1.005 (1.005-1.030); Urine Appearance Clear (CLEAR); Urine Color Yellow (Yellow); Urobilinogen Urine Norm (Negative); pH Urine 7 (5-7)
--- NOTE | 2019-11-12 15:19 | ECG_ITS ---
[facility] Test Date: 2019-11-12 Pat Name: Chalino Jeffrey Department: Room: Gender: Male Safety Assistant: : 1950 Requested By: Frandy Miller Order Number: [id number] Vicky MD: Lopez Gutierrez M.D. Measurements Intervals [place] Rate: 111 P: 68 ND: 165 QRS: 60 QRSD: 68 T: 73 QT: 301 QTc: 410 Interpretive Statements SINUS TACHYCARDIA ABNORMAL RHYTHM ECG Compared to ECG 11/12/2019 12:46:51 No significant changes Electronically Signed On 11-13-2019 0:29:28 CDT by Lopez Gutierrez M.D. [id number]
[2019-11-12 15:58] LABS: Troponin 5 2HR 10.19 ng/L (0-15); Troponin 5 2HR Delta 2.19 ABS# (0-10)
[2019-11-12 16:05] VITALS: BP 135/88; PULSE 110; RESP 16; O2SAT 97
== END 2019-11-12 16:07 | disposition home or self-care (01) ==
PROVIDERS: Emergency Provider Family Medicine; PCP Family Medicine
DX: K92.1 Melena (principal); D64.9 Anemia, unspecified; C34.90 Malignant neoplasm of unspecified part of unspecified bronchus or lung; Z79.01 Long term (current) use of anticoagulants; Z87.891 Personal history of nicotine dependence
CPT/HCPCS: 12345; 36415; 71045; 80053; 81003; 83605; 84484; 85025; 87040; 93005; 96360; 96361; 96374; 96375; 99283; 99284; J2405; J7030

== ENCOUNTER 2019-11-14 06:52 | Outpatient (RCR) | payer MEDICARE, MEDICAID, SELFPAY ==
--- NOTE | 2019-11-12 08:24 | ONCRAD TMN_ITS ---
Radiation Oncology Weekly Treatment Management Patient: Chalino Jeffrey MR#: [id number] : 1950> Age: 69> Sex: Male Dictated by: Dr. Tiago Rodas Date of Service: 11/11/2019 Referring Physician(s) : Diagnosis: C34.11 - Malignant neoplasm of upper lobe, right bronchus or lung, Diagnosed 09/02/2019 (Active) C77.1 - Secondary and unspecified malignant neoplasm of intrathoracic lymph nodes, Diagnosed 09/02/2019 (Active) Radiotherapy to date: Course: RT Lung 2019, Treatment Site: RT [id number], Ref. ID: [id number], Energy: 15X, Dose/Fx (cGy): 250, #Fx: 14 / 14, Dose Correction (cGy): 0, Total Dose (cGy): 3,500, Start Date: 10/06/2019, End Date: 10/29/2019, Elapsed Days: 23 RT Lung 2019, Treatment Site: RT [id number], Ref. ID: [id number], Energy: 15X/6X, Dose/Fx (cGy): 200, #Fx: , Dose Correction (cGy): 0, Total Dose (cGy): 1,200, Start Date: 11/04/2019, Elapsed Days: 7 Interim history: During today's weekly on treatment visit, the patient reports that he has a mild cough which is productive for clear sputum, his appetite is poor and his weight is down 1.2 pounds. He reports odynophagia, but he declined an offer for pain medication. Current Medications: CARBOplatin, dexamethasone, dexamethasone Sodium Phosphate, diphenhydrAMINE HCl, famotidine in NaCl, ferrous Sulfate, flomax, lORazepam, metoprolol Tartrate, ondansetron HCl, oxyCODONE-Acetaminophen, pACLitaxel, palonosetron HCl, prochlorperazine Maleate, xanax, zoloft, zyPREXA. Allergies: No Known Allergies Current Complaints/Review of Systems: Constitutional - Complains of a poor appetite. Complains of moderate fatigue. Complains of change in weight down 1.2 lbs. since last OTV. Denies fever and night sweats. ENMT - Complains of dysphagia that occurred recently. Complains of stomatitis. Complains of altered taste. Cardiovascular - Complains of infrequent arrhythmias. Denies chest pain and edema. Respiratory - Complains of a mild cough which is productive. Complains of dyspnea associated with normal activity. Complains of a scant amount of hemoptysis which happened this morning 1 time. Denies wheezing. Vital Signs: Performed on 11/11/2019 10:47 AM BMI - 18.951 kg/m2, Height - 67.00 in, Weight - 121.0 lbs, Temperature - 98.6 f, Pulse - 124, Respiration - 18, O2 Sat - 98 %, Pain - 5 and BP - 90/ 65 mm(hg). Physical Exam: Appears stable, no skin erythema or desquamation. Performance Status: 2 - Ambulatory/capable of all self-care, unable to perform any work activities. Up and about more than 50% of waking hours. (ECOG) Lab: None pending in Radiation Oncology. Imaging: . All radiation therapy related imaging (including but not limited to kV, MV, and CBCT generated images) was reviewed. Appropriate changes, if any, were made to assure accurate target localization. Impression/Plan: Tolerating treatment well with expected side effects. Continue treatment as planned. CPT: 93248 Signed by: Dr. Tiago Rodas>11/12/2019 8:22:23 AM <<Signature on File>>
[2019-11-12 10:57] LABS: Hematocrit 34.4 % (42.0-52.0); Hemoglobin 10.1 g/dL (11.7-16.6); Lymphocytes # 0.2 10^3/uL (0.8-4.8); Lymphocytes % 4.4 %; Mean Corpuscular HGB Conc 29.4 g/dL (30.0-36.0); Mean Corpuscular Hemoglobin 24.6 pg (28.0-34.0); Mean Corpuscular Volume 83.9 fL (80-94); Mean Platelet Volume 9.3 fL (7.4-10.4); Monocytes % 0.4 %; Neutrophils # 5.15 10^3/uL (1.8-7.7); Neutrophils % 94.5 %; Nucleated Red Blood Cells % 0 %; Platelet Count 278 10^3/cmm (130-400); Red Cell Distribution Width 16.5 % (12.1-15.1); White Blood Count 5.5 10^3/uL (4.0-10.0)
[2019-11-12 11:18] LABS: Alanine Aminotransferase 21 U/L (0-41); Albumin Level 3.8 g/dL (3.5-5.2); Alkaline Phosphatase 137 IU/L (40-130); Anion Gap 17.4 (5-19); Aspartate Amino Transferase 16 U/L (0-40); Blood Urea Nitrogen 19 mg/dL (8-23); Calcium 9.2 mg/dL (8.5-10.5); Carbon Dioxide 23 mmol/L (22-29); Chloride 97 mmol/L (98-107); Globulin 3.9 g/dL (1.3-4.6); Glomerular Filtration Rate 95.6 mL/min (90-130); Glucose 230 mg/dL (65-115); Osmolality Calculated 280 mOsm/kg (285-295); Potassium 4.4 mmol/L (3.5-5.1); Sodium 133 mmol/L (136-145); Total Bilirubin 0.2 mg/dL (0.15-1.2); Total Protein 7.7 g/dL (6.6-8.7)
[2019-11-13] MEDS: sodium chloride 0.9% 500 ML 999 ML IV (10:40)
[2019-11-13 11:06] LABS: Basophils % 0.1 %; Hematocrit 34.9 % (42.0-52.0); Hemoglobin 10.4 g/dL (11.7-16.6); Lymphocytes # 0.2 10^3/uL (0.8-4.8); Lymphocytes % 2.4 %; Mean Corpuscular HGB Conc 29.8 g/dL (30.0-36.0); Mean Corpuscular Hemoglobin 24.9 pg (28.0-34.0); Mean Corpuscular Volume 83.7 fL (80-94); Mean Platelet Volume 9.7 fL (7.4-10.4); Monocytes # 0.3 10^3/uL (0.2-0.9); Neutrophils # 8.39 10^3/uL (1.8-7.7); Neutrophils % 92.9 %; Nucleated Red Blood Cells % 0 %; Platelet Count 366 10^3/cmm (130-400); Red Blood Count 4.17 10^6/uL (4.1-5.3); Red Cell Distribution Width 17.2 % (12.1-15.1)
[2019-11-13] MEDS: sodium chloride 0.9% 250 ML 75 ML IV (12:22)
[2019-11-14 10:44] VITALS: RESP 16
[2019-11-14] MEDS: sodium chloride 0.9% 500 ML 999 ML IV (10:44)
[2019-11-14] MEDS: oxyCODONE 5 mg IR Tab/Cap PO (10:44)
--- NOTE | 2019-11-14 13:31 | ONC FU_ITS ---
Dr. Sibley follow up note Patient: Chalino Jeffrey < Unit #: [id number]: 1950 Dicatated By: Samia Sibley M.D.Date of Visit:Nov 13, 2019 Onc Med Follow-up/Prog Note History of Present Illness: Mr. Chalino Jeffrey, is a 69-year-old gentleman with history of hemoptysis, initially noticed in mid July 2019,, it was progressive in nature, as per patient he went to hospital and on 08/13/[address] angiogram which showed no pulmonary emboli but 6.2 x 3.9 x 4.8 cm right superior hilar/upper lobe mass with obstruction of right upper lobe bronchus with postobstructive pneumonia/atelectasis and also volume. Moderate mediastinal and right hilar metastatic adenopathy and probable pleural-based metastasis over the right upper lung field. Moderate centrilobular emphysema. Patient was referred to pulmonology and underwent bronchoscopy on 08/15/2019 biopsy was obtained from the mediastinal lymph nodes and right hilar mass and bronchial washing all confirmed non-small cell lung cancer with immunophenotype consistent with squamous cell carcinoma. Patient decided to go to [facility] far evaluation and management, as per patient he was informed that he has stage IIIB disease so he is not a candidate for surgery, so chemoradiation was recommended but prior to that staging workup with CT PET scan and MRI scan of the head was recommended. Patient decided to come back to [place] for further workup and management. Patient still complaining of mild hemoptysis especially with cough otherwise no fever or chills, no nausea or vomiting, no chest pain, no headaches or blurred vision or double vision. No jaundice, no bony pains, appetite is good. Patient also recently diagnosed with persistent tachycardia etiology unknown Patient has history of heavy smoking the past but quit in 2015 since then he was smoking e-cigarette which he quit recently too. Staging CT PET scan done on September 16, 2019 showed large FDG avid anterior right upper lobe mass extending into the mediastinum measuring 7.7 x 6.7 cm. There are few avid mediastinal precarinal and pretracheal nodes the largest of which measures 1.4 cm. There is a left supraclavicular FDG avid 1.2 cm node. There is a weakly avid posterior left upper lobe 8 mm node. There is a posterior basal left upper lobe perifissural 6 mm node that is non-avid. No evidence of distant metastatic disease otherwise below diaphragm. MRI scan of the head done on September 16, 2019 showed no evidence of metastatic disease Because of persistent off and on hemoptysis and probable post obstructive pneumonitis, he was referred to radiation oncology for palliative radiation therapy which was started on October 06, 2019, and patient was also referred to Dr. everett for Port-A-Cath placement and left supraclavicular lymph node biopsy, patient underwent left supraclavicular biopsy on October 09, 2019 and final pathology report came back benign fibrous soft tissue, adipose fat and dystrophic calcification, no malignancy identified. ? missed lymphnode versus inflammation Patient was admitted to hospital on October 15, 2019 because of postobstructive pneumonia, tachycardia and leukocytosis, chest x-ray done on October 15, 2019 shows dense right hilum, airspace consolidation right upper lobe with volume loss, he was treated with broad-spectrum antibiotics Zosyn, levofloxacin and vancomycin, after 2 days it did not make significant improvement so Zosyn was changed to imipenem with that he started improving his blood count started improving white blood count dropped from 26,000-15,000 and patient was also receiving palliative radiation therapy for obstructive pneumonitis, his dyspnea improved and patient was also given 2 units of packed RBCs and continue with oral iron supplement. Patient also had CT angiogram done on October 16, 2019 which showed no pulmonary embolus identified, interval increase in size of right apical and right upper chest mass with chest wall invasion of anterior lateral second and third rib, moderate right pleural effusion, and new right lower lobe 5.7 mm noncalcified pulmonary nodule. Came for follow-up, complaining of generalized weakness and fatigue and also has episode of dizziness this morning. Patient said he has history of lightheaded dizziness off and on for the last 3 years and now more frequent. Patient has history of atrial fibrillation now on Eliquis and being followed by Dr. Gutierrez, design transferrer. Patient also had episode of small rectal bleed x1. But denies any fever chills denies any nausea or vomiting denies any diarrhea or constipation denies any more blood in his stool. Tolerating radiation therapy and chemotherapy with weekly carboplatin/Taxol reasonably well Medications: Digoxin 1 Tablet (of 125 mcg) Oral daily, Eliquis 1 Tablet (of 2.5 mg) Oral b.i.d., Ferrous Sulfate 1 Tablet (of 325 (65 fe) mg) Tablet Oral b.i.d., Flomax 1 Tablet (of 0.4 mg) Capsule Oral daily, Metoprolol Tartrate 0.5 Tablet (of 25 mg) Oral b.i.d., oxyCODONE-Acetaminophen 1 Tablet (of 5-325 mg) Tablet Oral q 4 to 6 hours PRN, Xanax 1 Tablet (of 0.5 mg) Oral b.i.d. PRN, Zoloft 2 Tablet (of 100 mg) Oral daily, ZyPREXA 1 Tablet (of 10 mg) Oral daily Allergies: No Known Allergies. Review of Systems: Review of Systems is not available for this patient. Vital Signs: Performed on Nov 13, 2019 08:54 Height - 67.00 in Temperature - 98.4 F Pulse - 114 /min (HIGH) Respiration - 24 /min BP - 105/72 mm(hg) O2 Sat - 97 % Pain - 0 Performance Status: 2 - Ambulatory/capable of all self-care, unable to perform any work activities. Up and about more than 50% of waking hours. (ECOG) Physical Examination: ENMT - Dry oral mucosa but no thrush or mucositis, Respiratory - Poor air entry otherwise clear, Cardiovascular - Irregular rhythm/rate, tachycardia, Abdomen - Soft, bowel sounds present, Extremities - No visible edema. Lab/Imaging: Test performed on Nov 13, 2019 10:40 WBC 9.0 10 3/uL RBC 4.17 10 6/uL HGB 10.4 g/dL HCT 34.9 % MCV 83.7 fL MCH 24.9 pg MCHC 29.8 g/dL RDW 17.2 % Platelet Count 366 10 3/cmm MPV 9.7 fL Neutrophils 8.39 10 3/uL Lymphocytes 0.2 10 3/uL Monocytes 0.3 10 3/uL Eosinophils 0.0 10 3/uL Basophils 0.0 10 3/uL Neutrophil % 92.9 % Lymphocyte % 2.4 % Monocyte % 3.0 % Eosinophil % 0.0 % Basophils % 0.1 % NRBC % 0 % Test performed on Nov 12, 2019 10:50 Sodium 133 mmol/L Potassium 4.4 mmol/L Chloride 97 mmol/L CO2 23 mmol/L Anion Gap 17.4 BUN 19 mg/dL Creatinine 0.8 mg/dL Cr Clearance (Est) 67.3600 mL/min eGFR 95.6 mL/min Glucose 230 mg/dL Calcium 9.2 mg/dL Protein, Total 7.7 g/dL Albumin 3.8 g/dL Globulin 3.9 g/dL Bilirubin, Total 0.2 mg/dL ALT (SGPT) 21 U/L AST (SGOT) 16 U/L Alkaline Phosphatase 137 IU/L Impression: squamous cell carcinoma Per bronchoscopy done on 08/15/2019 showed fine-needle aspiration from lymph node, station 7, station 4R, right hilar mass, bronchial brushing right upper lobe, all confirmed squamous cell carcinoma Chest CT angiogram done on 08/13/2019 showed 6.2 x 3.9 x 4.8 cm right suprahilar/upper lobe mass with obstruction of right upper lobe bronchus with postobstructive pneumonia/atelectasis. Moderate mediastinal and right hilar metastatic lymphadenopathy Probable pleural-based metastasis over right upper lung field. No pulmonary embolism. Atrial fibrillation on Eliquis Plan: Discussed with patient regarding his labs white blood count 5.5 globin 10.1 hematocrit 34.4 platelets 278,000 CMP within normal limit except glucose 230 Clinically, patient is doing reasonably well but now with off and on dizziness, patient has orthostasis,, may be causing off and on dizziness and now responded well to hydration, feeling much better, will consider his next weekly dose of chemotherapy with weekly carboplatin and Taxol concurrent with radiation therapy and patient was encouraged to maintain good hydration in the meantime we will hydrate him on daily basis or every other day during radiation therapy. As far as hyperglycemia is concerned, patient took steroids as premedication for Taxol last night, we will consider sliding scale, discussed with his son, who will monitor at home. We will also consider MRI scan of the head to rule out brain mets. Patient was advised in case he has any more episode of GI bleeding, need to go to hospital and then will discuss with Dr. Gutierrez regarding anticoagulation for atrial fibrillation. Patient will return to clinic in 1 week with CBC CMP. Signed By: Samia Sibley M.D. <<Signature on File>>
== END 2019-11-14 23:59 | disposition home or self-care (01) ==
LOC: ONCMED 06:52
PROVIDERS: Internal Medicine Hematology & Oncology; Absent Provider Radiology Radiation Oncology; PCP Family Medicine; Visit Provider Radiology Radiation Oncology
DX: Z51.0 Encounter for antineoplastic radiation therapy (principal); Z51.11 Encounter for antineoplastic chemotherapy; C34.11 Malignant neoplasm of upper lobe, right bronchus or lung; C77.1 Secondary and unspecified malignant neoplasm of intrathoracic lymph nodes; I48.91 Unspecified atrial fibrillation; J43.2 Centrilobular emphysema; Z79.891 Long term (current) use of opiate analgesic; Z79.01 Long term (current) use of anticoagulants; R00.0 Tachycardia, unspecified; Z87.891 Personal history of nicotine dependence; Z87.01 Personal history of pneumonia (recurrent)
CPT/HCPCS: 36591; 77014; 77336; 77386; 80053; 85025; 96360; 96361; 96367; 96413; 96417; 99214; J1100; J1200; J2469; J3490; J7030; J7040; J7050; J9045; J9267

== ENCOUNTER 2019-11-19 05:38 | Outpatient (RCR) | payer MEDICARE, MEDICAID, SELFPAY ==
[2019-11-17] MEDS: sodium chloride 0.9% 500 ML 999 ML IV (10:40)
[2019-11-18] MEDS: sodium chloride 0.9% 500 ML 999 ML IV (11:04)
[2019-11-18 11:59] LABS: INR 1.05 (0.8-1.2)
--- NOTE | 2019-11-18 17:30 | ONCRAD TMN_ITS ---
Radiation Oncology Weekly Treatment Management Patient: Chalino Jeffrey MR#: [id number] : 1950> Age: 69> Sex: Male Dictated by: Dr. Tiago Rodas Date of Service: 11/18/2019 Diagnosis: Locally advanced versus metastatic non-small cell lung carcinoma (right upper lobe of lung) with concern for disease in the left supraclavicular region (biopsy pending 11/19/2019). Treatment Plan: Initially, palliative concurrent chemoradiation therapy was planned using weekly carbotaxol. Per the request of the medical oncologist, definitive concurrent chemoradiation therapy was requested. Initially, 35 Gy in 14 fractions was prescribed and then the radiation dose was modified to provide an EQD2 of 60 Gy (i.e., 24 Gy in 12 fractions boost). Radiotherapy to date: Course: RT Lung 2019, Treatment Site: RT [email or web address], Ref. ID: [id number], Energy: 15X, Dose/Fx (cGy): 250, #Fx: / 14, Dose Correction (cGy): 0, Total Dose (cGy): 3,500, Start Date: 10/06/2019, End Date: 10/29/2019, Elapsed Days: 23 RT Lung 2019, Treatment Site: RT [email or web address], Ref. ID: [id number], Energy: 15X/6X, Dose/Fx (cGy): 200, #Fx: , Dose Correction (cGy): 0, Total Dose (cGy): 2,200, Start Date: 11/04/2019, Elapsed Days: 14 Reason for visit: The patient is being seen today as part of their regularly scheduled weekly on treatment visits to assess for acute toxicities for radiotherapy. Interim History: The patient reports a poor appetite, moderate fatigue, and tolerable painful swallowing. Current Medications: CARBOplatin, dexamethasone, dexamethasone Sodium Phosphate, digoxin, diphenhydrAMINE HCl, eliquis, famotidine in NaCl, ferrous Sulfate, flomax, lORazepam, metoprolol Tartrate, ondansetron HCl, oxyCODONE-Acetaminophen, pACLitaxel, palonosetron HCl, prochlorperazine Maleate, sodium Chloride, xanax, zoloft, zyPREXA. Allergies: No Known Allergies Current Complaints/Review of Systems: Constitutional - Complains of a poor appetite. Complains of moderate fatigue. Complains of change in weight. Denies fever and night sweats. ENMT - Complains of dysphagia that occurred recently. Complains of stomatitis. Complains of altered taste. Cardiovascular - Denies chest pain and edema. Respiratory - Complains of a mild cough which is non-productive. Complains of mild dyspnea associated with normal activity. Complains of mild wheezing. Denies hemoptysis. Vital Signs: Performed on 11/18/2019 10:11 AM BMI - 18.763 kg/m2, Height - 67.00 in, Weight - 119.8 lbs, Temperature - 98.5 f, Pulse - 118, Respiration - 24, O2 Sat - 97 %, Pain - 0 and BP - 94/ 66 mm(hg). Physical Exam: Appears stable, no skin erythema or desquamation. Lungs are clear to auscultation bilaterally. Performance Status: 3 - Capable of only limited self-care, confined to bed or chair more than 50% of waking hours. (ECOG) Lab: None pending in Radiation Oncology. Test performed on 11/12/2019 10:50 AM Sodium - 133 mmol/l (low), Chloride - 97 mmol/l (low), Cr Clearance (Est) - 67.3600 ml/min (low), Glucose - 230 mg/dl (high), Alkaline Phosphatase - 137 iu/l (high), Test performed on 11/13/2019 10:40 AM HGB - 10.4 g/dl (low), HCT - 34.9 % (low), MCH - 24.9 pg (low), MCHC - 29.8 g/dl (low), RDW - 17.2 % (high), Neutrophils - 8.39 10 3/ul (high) and Lymphocytes - 0.2 10 3/ul (low). Imaging: Radiation therapy imaging related to accurate target localization (i.e. KV, MV and CBCT) was reviewed. Appropriate changes, if any, were made to ensure treatment accuracy. Plan: The patient is tolerating therapy reasonably well. Radiotherapy will continue as planned. He is scheduled to have a biopsy of the left supraclavicular lymph node tomorrow. CPT: 41574 Signed by: Dr. Tiago Rodas>11/18/2019 5:28:52 PM <<Signature on File>>
[2019-11-19] MEDS: sodium chloride 0.9% 500 ML 999 ML IV (09:55)
== END 2019-11-19 18:00 | disposition home or self-care (01) ==
LOC: ONCMED 05:38
PROVIDERS: Absent Provider Radiology Radiation Oncology; PCP Family Medicine; Visit Provider Radiology Radiation Oncology
DX: Z51.0 Encounter for antineoplastic radiation therapy (principal); Z01.812 Encounter for preprocedural laboratory examination; C34.11 Malignant neoplasm of upper lobe, right bronchus or lung; C77.1 Secondary and unspecified malignant neoplasm of intrathoracic lymph nodes; Z79.899 Other long term (current) drug therapy; Z79.01 Long term (current) use of anticoagulants
CPT/HCPCS: 77336; 77386; 85610; 88112; 88173; 96360; J7040

== ENCOUNTER → 2019-11-19 07:33 | Day surgery (SDC) | payer MEDICARE, MEDICAID, SELFPAY ==
[2019-11-19 07:46] VITALS: BP 124/88; PULSE 131; RESP 18; TEMP 36.1; O2SAT 98
--- NOTE | 2019-11-19 08:30 | US_ITS ---
WS: [id number] ULTRASOUND GUIDED BIOPSY LEFT NECK LYMPH NODE. HISTORY: Biopsy of left supraclavicular lymph node Procedure, risks, and complications are explained to the patient. Consent was obtained. Skin is clean sed with ChloraPrep and anesthetized with 1% buffered lidocaine. Prior imaging studies are reviewed. Abnormal lymph node is noted within the LEFT neck in the supraclavicular region. Skin is cleansed wit h ChloraPrep and anesthetized with 1% buffered lidocaine. Multiple fine-needle aspirations are obtain ed and placed in saline. Pathologist was also present and slides were prepared. No complications were encountered. Sterile dressing is placed over the puncture site. US/US biopsy lymph node [id number] IMPRESSION: Uncomplicated fine-needle aspiration of the LEFT supraclavicular lymph node. [facility] pathology results are pending.
[2019-11-19 09:04] VITALS: BP 107/70; PULSE 106; RESP 18; O2SAT 96
[2019-11-19 09:30] VITALS: BP 121/81; PULSE 112; RESP 18; O2SAT 96
[2019-11-19 09:39] VITALS: BP 113/78; PULSE 112; RESP 18; O2SAT 96
[2019-11-19 09:53] VITALS: BP 119/81; PULSE 116; RESP 18; O2SAT 97
== END ==
PROVIDERS: PCP Family Medicine; Visit Provider Radiology Diagnostic Radiology
DX: R59.0 Localized enlarged lymph nodes (principal)
CPT/HCPCS: 10005; 38505; 76942; 88305; 96374

== ENCOUNTER 2019-11-30 08:14 | Inpatient (IN) | payer MEDICARE, MEDICAID, SELFPAY ==
[2019-11-30] VITALS (14 sets, daily range): BP systolic 82–135; BP diastolic 57–85; PULSE 94–134; RESP 16–36; TEMP 36.3–37.3; O2SAT 86–99; BMI 17.2
--- NOTE | 2019-11-30 08:20 | ECG_ITS ---
[facility] Test Date: 2019-11-30 Pat Name: Chalino Jeffrey Department: Room: Gender: Male Porter Baggage: : 1950 Requested By: Wagner Phelps Order Number: [id number] Vicky MD: Afshin Frey M.D. Measurements Intervals [place] Rate: 134 P: 71 WA: 162 QRS: 26 QRSD: 71 T: 96 QT: 331 QTc: 495 Interpretive Statements SINUS TACHYCARDIA WITH OCCASIONAL ECTOPIC PREMATURE COMPLEXES POSSIBLE RIGHT VENTRICULAR CONDUCTION DELAY [RSR (QR) IN V1/V2] NONSPECIFIC ST & T-WAVE ABNORMALITY Compared to ECG 11/12/2019 15:20:05 T-wave abnormality now present Electronically Signed On 11-30-2019 18:12:02 CDT by Afshin Frey M.D. [id number]
--- NOTE | 2019-11-30 08:20 | XRR_ITS ---
PROCEDURE INFORMATION: Exam: XR Chest, 1 View Exam date and time: 11/30/2019 8:52 AM Age: 69 years old Clinical indication: Shortness of breath; Additional info: SOB TECHNIQUE: Imaging protocol: XR of the chest Views: 1 view. COMPARISON: CR XR chest 1V portable [id number] 11/12/2019 12:26 PM FINDINGS: Tubes, catheters and devices: Left chest wall port catheter tip terminates in the SVC. Lungs: Airspace consolidation/mass noted in the right lung apex. Pleural space: No pleural effusion. No pneumothorax. Heart/Mediastinum: Cardiomediastinal silhouette is unchanged. Bones/joints: Postsurgical changes of the cervical spine and distal left clavicle. XR/XR chest 1V portable [id number] IMPRESSION: No interval change.
--- NOTE | 2019-11-30 08:20 | CTR_ITS ---
PROCEDURE INFORMATION: Exam: CT Angiography Chest With Contrast Exam date and time: 11/30/2019 9:51 AM Age: 69 years old Clinical indication: Shortness of breath; Additional info: SOB TECHNIQUE: Imaging protocol: Computed tomographic angiography of the chest with intravenous contrast. 3D rendering: MIP and/or 3D reconstructed images were created by the technologist. Radiation optimization: All CT scans at this facility use at least one of these dose optimization techniques: automated exposure control; mA and/or kV adjustment per patient size (includes targeted exams where dose is matched to clinical indication); or iterative reconstruction. Contrast material: OMNIPAQUE 350; Contrast volume: 65 ml; Contrast route: INTRAVENOUS (IV); COMPARISON: CT angio chest PE protcl [id number] 10/16/2019 2:37 PM RADIATION DOSE METRICS: Total DLP (mGy-cm): 517.5 FINDINGS: Pulmonary arteries: Normal. No pulmonary emboli. Aorta: Unremarkable. No aortic aneurysm. No aortic dissection. Lungs: There is a heterogeneous mass involving the anterior and apical right lung which has decreased in size when compared to the prior study. At the apex the lesion currently measures 5.9 by 4.1 cm in the transverse/AP dimensions compared to 7.1 x 7.6 cm on the prior study. There are multiple noncalcified nodular densities in the lungs similar to the prior CT scan. Largest noncalcified nodular density is at the left lung apex posteriorly measuring 10 mm. This has not significantly changed when compared to the prior study. Pulmonary ground-glass opacities, more prominent on the left. Pleural space: Unremarkable. No pneumothorax. No pleural effusion. Heart: Unremarkable. No cardiomegaly. No pericardial effusion. Mediastinal space: There is mucosal thickening of the esophagus. Lymph nodes: Perihilar and mediastinal lymph nodes appear similar to the prior study. Bones/joints: Unremarkable. No acute fracture. Soft tissues: Unremarkable. CT/CT angio chest PE protcl [id number] IMPRESSION: 1. No evidence for pulmonary embolus. 2. There is mucosal thickening of the esophagus. Differential includes nonspecific esophagitis and neoplasm. 3. Interval decrease in size of the heterogeneous mass lesion at the anterior it and apical aspect of the right lung. 4. There are multiple noncalcified nodular densities in the lungs similar to the prior CT scan. Largest noncalcified nodular density measures 10 mm and is similar to the prior study.For patients at low risk (minimal or absent history of smoking and of other known risk factors), recommend CT at 3-6 months, then consider CT at 18-24 months. For patients at high risk (history of smoking or of other known risk factors), recommend CT at 3-6 months, then CT at 18-24 months. (Lauren et al., Fleischner Society, 2017) 5. Pulmonary ground-glass opacities, more prominent on the left. Differential includes pneumonia, pneumonitis, and pulmonary edema. Radiation Dose CTDIVOL = (mGy): DLP = 517.5 (mGy-cm)
--- NOTE | 2019-11-30 08:22 | W.ED.SOB ---
HPI - SOB/Dyspnea General: Chief Complaint: Shortness of Breath/Dyspnea Stated Complaint: SOB Time Seen by Provider: 11/30/19 08:16 Source: patient Mode of arrival: EMS Limitations: no limitations History of Present Illness: HPI Narrative: 69-year-old male with history of lung cancer. Patient states he was on chemo but has had a treatment in 2 weeks due to a pneumonia. Patient finished his antibiotics 2 weeks ago for pneumonia and states he had been doing improved. He states over the last week he has had shortness of breath and continues to have a cough. He states his cough is dry in nature. Denies any vomiting. Patient has been afebrile. Associated symptoms: Reports chest pain; Deny abdominal pain, fever(s), nausea or vomiting Review of Systems Const: Denies: fever(s), chills, body aches or change in appetite Eyes: Denies: blurry vision or eye discomfort ENMT: Denies: throat pain or dental pain Card: Reports: chest pain Resp: Reports: dyspnea GI: Denies: abdominal pain, nausea, vomiting or diarrhea : Denies: dysuria Musc: Denies: neck pain or back pain Skin/Breast: Denies: rash Neuro: Denies: headache(s) Psych: Denies: depression Ignacio/Lymph: Denies: easy bruising All/Imm: Denies: urticaria PFSH ED PFSH: Medical History Anemia Anorexia nervosa, restricting type Closed left clavicular fracture Generalized anxiety disorder H/O clavicle fracture with hardware Major depressive disorder, recurrent severe without psychotic features Sinus tachycardia SOB (shortness of breath) Squamous cell lung cancer Tachycardia Surgical History H/O neck surgery Hx of cholecystectomy Family History Mother Cancer Bladder Denies family history of Anesthesia complication Bleeding disorder Social History Smoking and tobacco status: former smoker Alcohol intake: former Lives independently: Yes Household members: children Current occupational status: disabled History of recent travel: No Current gender identity: Male Physical Exam Const: COMMON NORMALS: no acute distress, patient oriented x3 and healthy appearing HENMT: COMMON NORMALS: normocephalic and atraumatic HEAD & SCALP: normocephalic and atraumatic Eye: COMMON NORMALS: Equal, round and reactive pupils present and EOMs intact bilaterally PUPIL: Yes Equal, round and reactive pupils present Neck/C-Spine: COMMON NORMALS: full ROM and supple Chest: COMMONS NORMALS: normal inspection of the chest and normal palpation of entire chest wall Resp: COMMON NORMALS: No retractions, No use of accessory muscles and clear to auscultation bilaterally EFFORT & INSPECTION: Yes tachypneic AUSCULTATION: clear to auscultation bilaterally Cardio: COMMON NORMALS: regular rhythm and No murmurs present (Cardio) RATE: tachycardic RHYTHM: regular rhythm GI: COMMON NORMALS: Normal to inspection, nondistended, normoactive bowel sounds present, Soft to palpation, non-tender and no masses PALPATION: Yes Soft to palpation Extremity: COMMON NORMALS: normal to inspection and full ROM Neuro: COMMON NORMALS: patient oriented x3, moves all extremities and no focal motor deficits Psych: COMMON NORMALS: mental status grossly normal, Normal thought process present and cooperative THOUGHT PROCESS: Normal thought process present Skin: COMMON NORMALS: no rashes or lesions noted and no wounds GENERAL SKIN EXAM: no rashes or lesions noted Course Vital Signs: Vital signs: Vital Signs Temperature 99.1 F 11/30/19 08:26 Pulse Rate 111 H 11/30/19 10:33 Respiratory Rate 18 11/30/19 10:33 Blood Pressure 82/57 11/30/19 10:33 Pulse Oximetry 99 11/30/19 10:33 MDM - SOB/Dyspnea MDM Narrative: Medical decision making narrative: Patient presents here with cough along with shortness of breath has a history of lung cancer finishing radiation a few weeks ago. Patient CT shows possible pneumonitis versus pneumonia. Patient here is requiring 3 L of oxygen is typically on room air. Will start IV antibiotics I spoke to hospitalist and will admit. Patient given steroids here as well. Patient's blood pressure was originally in the 90s but is improved with IV fluids and is currently 122/72. Lab Data: Labs: Lab Results 11/30/19 11/30/19 11/30/19 Range/Units 08:38 08:38 08:38 WBC 6.5 (4.0-10.0) 10^3/ uL RBC 3.36 L (4.1-5.3) 10^6/u L Hgb 8.4 L (11.7-16.6) g/dL Hct 28.6 L (42.0-52.0) % MCV 85.1 (80-94) fL MCH 25.0 L (28.0-34.0) pg MCHC 29.4 L (30.0-36.0) g/dL RDW 18.6 H (12.1-15.1) % Plt Count 184 (130-400) 10^3/c mm MPV 10.1 (7.4-10.4) fL Neut % (Auto) 77.5 % Lymph % (Auto) 13.1 % Christian % (Auto) 7.4 % Eos % (Auto) 1.2 % Baso % (Auto) 0.5 % Neut # (Auto) 5.05 (1.8-7.7) 10^3/u L Lymph # (Auto) 0.9 (0.8-4.8) 10^3/u L Christian # (Auto) 0.5 (0.2-0.9) 10^3/u L Eos # (Auto) 0.1 (0.0-0.8) 10^3/u L Baso # (Auto) 0.0 (0.0-0.1) 10^3/u L Nucleated RBC % (a uto) 0 % Nucleated RBCs # 0.0 /100WBC Sodium 132 L (136-145) mmol/L Potassium 3.8 (3.5-5.1) mmol/L Chloride 99 (98-107) mmol/L Carbon Dioxide 22 (22-29) mmol/L Anion Gap 14.8 (5-19) BUN 9 (8-23) mg/dL Creatinine 0.6 L (0.7-1.2) mg/dL GFR Calculation 133.2 H (90-130) mL/min Glucose 210 H (65-115) mg/dL Calculated Osmolal ity 276 L (285-295) mOsm/k g Lactate 2.4 H (0.5-2.2) mmol/L Calcium 8.1 L (8.5-10.5) mg/dL Total Bilirubin 0.3 (0.15-1.2) mg/dL AST 17 (0-40) U/L ALT 12 (0-41) U/L Alkaline Phosphata se 114 (40-130) IU/L NT-Pro-B Natriuret Pep 705 H (0-125) pg/mL Total Protein 6.7 (6.6-8.7) g/dL Albumin 3.0 L (3.5-5.2) g/dL Globulin 3.7 (1.3-4.6) g/dL Imaging Data^: CT Chest: Radiologist's impression: [address] [place] [address] CT Scan Report Signed Patient: Chalino Jeffrey Unit #: [id number] : 1950 Age/Sex: 69 / M ADM Date: 11/30/19 Loc: ER Room/Bed: Attending Dr: Ordering Provider/Ordering MD: Wagner Phelps MD Date of Service: 11/30/19 Procedure(s): CT angio chest PE protcl [id number] Accession Number(s): [id number] Report Number: [id number] PROCEDURE INFORMATION: Exam: CT Angiography Chest With Contrast Exam date and time: 11/30/2019 9:51 AM Age: 69 years old Clinical indication: Shortness of breath; Additional info: SOB TECHNIQUE: Imaging protocol: Computed tomographic angiography of the chest with intravenous contrast. 3D rendering: MIP and/or 3D reconstructed images were created by the technologist. Radiation optimization: All CT scans at this facility use at least one of these dose optimization techniques: automated exposure control; mA and/or kV adjustment per patient size (includes targeted exams where dose is matched to clinical indication); or iterative reconstruction. Contrast material: OMNIPAQUE 350; Contrast volume: 65 ml; Contrast route: INTRAVENOUS (IV); COMPARISON: CT angio chest PE protcl [id number] 10/16/2019 2:37 PM RADIATION DOSE METRICS: Total DLP (mGy-cm): 517.5 FINDINGS: Pulmonary arteries: Normal. No pulmonary emboli. Aorta: Unremarkable. No aortic aneurysm. No aortic dissection. Lungs: There is a heterogeneous mass involving the anterior and apical right lung which has decreased in size when compared to the prior study. At the apex the lesion currently measures 5.9 by 4.1 cm in the transverse/AP dimensions compared to 7.1 x 7.6 cm on the prior study. There are multiple noncalcified nodular densities in the lungs similar to the prior CT scan. Largest noncalcified nodular density is at the left lung apex posteriorly measuring 10 mm. This has not significantly changed when compared to the prior study. Pulmonary ground-glass opacities, more prominent on the left. Pleural space: Unremarkable. No pneumothorax. No pleural effusion. Heart: Unremarkable. No cardiomegaly. No pericardial effusion. Mediastinal space: There is mucosal thickening of the esophagus. Lymph nodes: Perihilar and mediastinal lymph nodes appear similar to the prior study. Bones/joints: Unremarkable. No acute fracture. Soft tissues: Unremarkable. CT/CT angio chest PE protcl [id number] IMPRESSION: 1. No evidence for pulmonary embolus. 2. There is mucosal thickening of the esophagus. Differential includes nonspecific esophagitis and neoplasm. 3. Interval decrease in size of the heterogeneous mass lesion at the anterior it and apical aspect of the right lung. 4. There are multiple noncalcified nodular densities in the lungs similar to the prior CT scan. Largest noncalcified nodular density measures 10 mm and is similar to the prior study.For patients at low risk (minimal or absent history of smoking and of other known risk factors), recommend CT at 3-6 months, then consider CT at 18-24 months. For patients at high risk (history of smoking or of other known risk factors), recommend CT at 3-6 months, then CT at 18-24 months. (Lauren et al., Fleischner Society, 2017) 5. Pulmonary ground-glass opacities, more prominent on the left. Differential includes pneumonia, pneumonitis, and pulmonary edema. EKG Data^: EKG 1: Attestation: I personally reviewed and interpreted this EKG as follows: EKG Interpretation Date: 11/30/19 EKG interpretation time: 08:30 Interpretation: Sinus tachycardia heart rate [address] or T wave abnormalities QRS 71 QTc 410 Discharge Plan Discharge Patient Disposition: Admitted As Inpatient Clinical Impression: Pneumonia Condition: Stable Coding Level of Care Code ED Drop Wire Aligner for Chg Fwd Exam Comprehensive
[2019-11-30 08:45] LABS: Basophils % 0.5 %; Eosinophils # 0.1 10^3/uL (0.0-0.8); Eosinophils % 1.2 %; Hematocrit 28.6 % (42.0-52.0); Hemoglobin 8.4 g/dL (11.7-16.6); Lymphocytes # 0.9 10^3/uL (0.8-4.8); Lymphocytes % 13.1 %; Mean Corpuscular HGB Conc 29.4 g/dL (30.0-36.0); Mean Corpuscular Volume 85.1 fL (80-94); Mean Platelet Volume 10.1 fL (7.4-10.4); Monocytes # 0.5 10^3/uL (0.2-0.9); Monocytes % 7.4 %; Neutrophils # 5.05 10^3/uL (1.8-7.7); Neutrophils % 77.5 %; Nucleated Red Blood Cells % 0 %; Platelet Count 184 10^3/cmm (130-400); Red Blood Count 3.36 10^6/uL (4.1-5.3); Red Cell Distribution Width 18.6 % (12.1-15.1); White Blood Count 6.5 10^3/uL (4.0-10.0)
[2019-11-30] MEDS: LORazepam 2 mg/mL INJ 1 mL 1 MG IVP (08:51)
[2019-11-30] MEDS: ipratropium-albuterol 3 mL Neb INHALATION (09:00)
[2019-11-30 09:37] LABS: Alanine Aminotransferase 12 U/L (0-41); Alkaline Phosphatase 114 IU/L (40-130); Anion Gap 14.8 (5-19); Aspartate Amino Transferase 17 U/L (0-40); Blood Urea Nitrogen 9 mg/dL (8-23); Calcium 8.1 mg/dL (8.5-10.5); Carbon Dioxide 22 mmol/L (22-29); Chloride 99 mmol/L (98-107); Globulin 3.7 g/dL (1.3-4.6); Glomerular Filtration Rate 133.2 mL/min (90-130); Glucose 210 mg/dL (65-115); NT Pro B Type Natriuretic Pept 705 pg/mL (0-125); Osmolality Calculated 276 mOsm/kg (285-295); Potassium 3.8 mmol/L (3.5-5.1); Sodium 132 mmol/L (136-145); Total Bilirubin 0.3 mg/dL (0.15-1.2); Total Protein 6.7 g/dL (6.6-8.7)
[2019-11-30] MEDS: sodium chloride 0.9% 1,000 ML 999 ML IV (09:37)
[2019-11-30 09:48] LABS: Creatinine Clr Calc Pharmacy 60.6363
[2019-11-30] MEDS: iohexol 350 mg/mL 100 mL Btl IV (10:09)
[2019-11-30 11:01] LABS: Lactate (Lactic Acid level) 2.4 mmol/L (0.5-2.2)
[2019-11-30] MEDS: vancomycin 1,000 MG in sodium chloride 0.9% 250 ML 250 MG IV (11:06)
[2019-11-30] MEDS: piperacillin-tazobactam 3.375 GM in sodium chloride 0.9% (plus) 50 ML IV ×2 (11:07→17:53)
[2019-11-30 11:50] LABS: Add Urine Microscopic? NO
[2019-11-30 12:07] LABS: SARS Covid-2 Antigen Negative (Negative)
[2019-11-30 12:10] LABS: Bilirubin Urine Neg (NEGATIVE); Blood Urine Neg (Negative); Glucose Urine UA Norm (Normal); Ketones Urine Negative (Negative); Leukocyte Esterase Urine Negative (Negative); Nitrate Urine Negative (Negative); Protein Urine Neg (Negative); Urine Appearance Clear (CLEAR); Urine Color Yellow (Yellow); Urobilinogen Urine Norm (Negative); pH Urine 7 (5-7)
--- NOTE | 2019-11-30 12:20 | PM.HP ---
Providers/Chief Complaint Admitting Physician: Cathleen Gil MD Primary Care Provider: Silverio Spain MD Chief Complaint: SOB History of Present Illness Chalino Jeffrey is a 69 year old male with past medical history noted below presents accompanied by his son due to generally feeling unwell, dry cough, shortness of breath for approximately 2 weeks. He has a known history of squamous cell carcinoma and recently completed radiation therapy. There has been discussion about initiation of chemotherapy pending lymph node biopsy. Last radiation treatment was on November 18. Overall patient has had dizziness, gait instability and poor balance, typically ambulates with a walker. He has had some falls though denies any loss of consciousness or head trauma. He denies any fever/chills, chest pain or chest tightness, abdominal pain, nausea/vomiting, changes in his urination or bowel habits. He has had issues with decreased appetite and subsequent weight loss. He quit smoking approximately 3 months ago. He is not oxygen dependent at baseline. He has been admitted last month during which time he was treated for new onset A. fib with RVR and has been on digoxin and metoprolol as well as Eliquis for anticoagulation. He was found to be somewhat hypoxic on his arrival so is currently on 2 L nasal cannula. He is febrile with a temperature of 101.9F, with otherwise normal vital signs. Labs indicate a normal white count at 6.5, hemoglobin of 8.4, sodium of 132, normal renal function, blood glucose of 210, BNP of 205, lactate of 2.4, normal LFTs. Urinalysis is negative. I requested rapid COVID-19 testing which is negative. CT scanning of the chest shows bilateral lower lobe groundglass opacities, more apparent on the left as well as mucosal thickening of the esophagus which could be indicative of esophagitis. He has received vancomycin and Zosyn as well as IV steroids. He does not appear to be in any distress acutely during my assessment in the ER. Son is present at bedside during my encounter. He will require further IV antibiotics and close monitoring of his respiratory status with noted fever, oxygen requirement. Review of Systems Const: Reports: change in appetite (decreased appetite, chronic) and fatigue; Denies: fever(s) or chills Eyes: Denies: change in vision ENMT: Reports: dry mouth Card: Reports: dyspnea on exertion; Denies: chest pain, edema, swelling of feet/ankles, lightheadedness, syncope or pre-syncope Resp: Reports: dyspnea and non-productive cough; Denies: hemoptysis GI: Denies: abdominal pain, nausea, vomiting, hematemesis or hematochezia : Denies: dysuria, urinary frequency or hematuria Musc: Denies: back pain Skin/Breast: Denies: rash Neuro: Reports: weakness in extremities; Denies: numbness in extremities, difficulty walking, dizziness or confusion Psych: Denies: anxiety Medications/Allergies Home Medications Medication Instructions Recorded Confirmed Last Taken Type multivitamin [Multiple Vitamins] 1 tab PO DAILY 08/13/19 11/30/19 11/29/19 History ferrous sulfate 325 mg PO BID #60 tab 08/15/19 11/30/19 11/29/19 Rx metoprolol tartrate 12.5 mg PO BID 08/28/19 11/30/19 11/29/19 History tamsulosin 0.4 mg PO BEDTIME 10/07/19 11/30/19 11/29/19 History oxycodone-acetaminophen 1 - 2 tab PO Q4H PRN #120 tab 10/21/19 11/30/19 11/17/19 Rx lorazepam 0.5 - 1 mg PO TID PRN 11/07/19 11/30/19 11/29/19 History ondansetron 8 mg PO Q8H PRN 11/07/19 11/30/19 11/17/19 History prochlorperazine maleate 10 mg PO Q4H PRN 11/07/19 11/30/19 11/15/19 History zolpidem 5 - 10 mg PO BEDTIME PRN 11/07/19 11/30/19 11/29/19 History apixaban [Eliquis] 2.5 mg PO BID #60 tab 11/08/19 11/30/19 11/30/19 Rx digoxin 250 mcg PO DAILY #30 tab 11/08/19 11/30/19 11/30/19 Rx sennosides-docusate sodium 1 tab-cap PO BID #60 cap 11/12/19 11/30/19 11/29/19 Rx alprazolam 0.5 mg tablet 0.5 mg PO BID PRN #60 tab 11/13/19 11/30/19 11/29/19 Rx olanzapine 15 mg tablet 15 mg PO BEDTIME #30 tab 11/13/19 11/30/19 11/29/19 Rx sertraline 100 mg tablet 200 mg PO DAILY #30 tab 11/13/19 11/30/19 11/29/19 Rx Allergies Allergy/AdvReac Type Severity Reaction Status Date / Time No Known Allergies Allergy Verified 11/30/19 08:30 PFSH Acute PFSH: Medical History Anemia Anorexia nervosa, restricting type Closed left clavicular fracture Generalized anxiety disorder H/O clavicle fracture with hardware Major depressive disorder, recurrent severe without psychotic features Sinus tachycardia SOB (shortness of breath) Squamous cell lung cancer Tachycardia Surgical History H/O neck surgery Hx of cholecystectomy Family History Mother Cancer Bladder Denies family history of Anesthesia complication Bleeding disorder Social History (Updated 11/30/19 @ 20:55 by Cathleen Gil MD) Smoking and tobacco status: former smoker Quit status (tobacco): has quit using tobacco Former quit date comment: 3 months ago Alcohol intake: former Lives independently: Yes Household members: children Current occupational status: disabled History of recent travel: No Current gender identity: Male Vitals/I&O/Wt Last Vital Signs Temp 99.1 F 11/30/19 08:26 Pulse 111 H 11/30/19 10:33 Resp 18 11/30/19 10:33 BP 82/57 11/30/19 10:33 Pulse Ox 99 11/30/19 10:33 Weight last 48 hrs Weight 49.895 kg Physical Exam Const: COMMON NORMALS: no acute distress, patient oriented x3 and alert GENERAL APPEARANCE: cooperative and comfortable ORIENTATION/CONSCIOUSNESS: Yes awake OTHER: -appears pale HENMT: COMMON NORMALS: normocephalic, atraumatic, hearing grossly normal bilaterally and moist oral mucous membranes HEAD & SCALP: normocephalic and atraumatic Eye: COMMON NORMALS: Equal, round and reactive pupils present, EOMs intact bilaterally and conjunctivae normal CONJUNCTIVA: Yes conjunctivae normal PUPIL: Yes Equal, round and reactive pupils present Neck/C-Spine: COMMON NORMALS: full ROM GENERAL: Yes normal visual inspection and Yes trachea midline Chest: CHEST: Yes Vascular access present (port-A-cath in place on L; no drainage, no erythema) Resp: COMMON NORMALS: normal respiratory effort, No retractions and No use of accessory muscles EFFORT & INSPECTION: Yes able to speak in complete sentences, Yes symmetric chest movement and No tachypneic AUSCULTATION: diminished lung sounds OTHER: -on 2-3 L NC Cardio: COMMON NORMALS: regular rate, regular rhythm, S1 normal heart sound present, S2 normal heart sound present and No murmurs present (Cardio) RATE: regular rate RHYTHM: regular rhythm HEART SOUNDS: S1 normal heart sound present and S2 normal heart sound present GI: COMMON NORMALS: Normal to inspection, nondistended, normoactive bowel sounds present, Soft to palpation and non-tender PALPATION: Yes Soft to palpation Extremity: COMMON NORMALS: normal to inspection, full ROM and no clubbing, cyanosis or edema; negative for no pedal edema Neuro: COMMON NORMALS: patient oriented x3, moves all extremities, no focal motor deficits and no sensory deficits noted Psych: COMMON NORMALS: mental status grossly normal, Normal thought process present, cooperative, normal affect and speech normal SPEECH: Yes normal speech THOUGHT PROCESS: Normal thought process present Skin: COMMON NORMALS: no rashes or lesions noted, no jaundice, no petechiae and no mottling GENERAL SKIN EXAM: no rashes or lesions noted Data : 11/30/19 08:38 11/30/19 08:38 Micro: Microbiology 11/30/19 08:38 Blood Culture - Preliminary Blood SPECIMEN COLLECTED 11/30/19 11:00 Blood Culture - Preliminary Blood SPECIMEN COLLECTED A&P Assessment and plan (1) Pneumonia: -presented with c/o SOB, dry cough, found to be febrile (temp-101.7 F), hypoxic, -Chest x-ray pending report -CT scan of the chest is negative for PE, noted pulmonary groundglass opacities, more prominent on the left, multiple noncalcified nodular densities, interval decrease in size of mass involving the anterior and apical right lung -Currently requiring supplemental oxygen support -Monitor respiratory status closely -No leukocytosis, lactic acid 2.4, vital signs otherwise stable -Continue to monitor vital signs -Received dose of vancomycin, Zosyn in the ER; will continue this and add Levaquin -rapid COVID-19 negative -order bacterial antigens, Legionella, MRSA PCR -f/u blood cx -received IV steroids in ED, will continue oral steroids -gentle IVF hydration -not oxygen dependent at baseline Status: Acute Qualifiers: Pneumonia type: due to unspecified organism Laterality: bilateral Lung location: lower lobe of lung Qualified Code(s): J18.9 - Pneumonia, unspecified organism (2) Squamous cell lung cancer: -Has known history of squamous cell carcinoma involving the right lung with probable pleural-based metastasis of the right upper lung field -Had recent left clavicular lymph node biopsy done on 11/18 with pathology showing findings consistent with squamous cell carcinoma -Is pending further evaluation in [place] before initiation of chemotherapy -Completed radiation therapy on 11/18 -Follows up with Dr. Sibley -MRI head (09/2019): no evidence of metastatic disease -has port-A-cath in place Status: Chronic Qualifiers: Laterality: right Qualified Code(s): C34.91 - Malignant neoplasm of unspecified part of right bronchus or lung (3) Anemia: -Has known history of chronic normocytic anemia with baseline hemoglobin of around 10 -likely multifactorial given iron deficiency, underlying malignancy, poor nutrition status -Monitor H&H closely -Transfuse blood products if needed -Resume iron supplementation Status: Acute Qualifiers: Anemia type: unspecified type Qualified Code(s): D64.9 - Anemia, unspecified Additional A&P Information -Was recently diagnosed with new onset atrial fibrillation and started on anticoagulation with Eliquis. If blood pressure allows will resume beta-tapan and digoxin; check level in AM -Anxiety/depression; resume meds -At least moderate protein calorie malnutrition: BMI-17 kg/m2; liberal diet with Ensure supplements -Physical deconditioning: strict fall precautions, PT evaluation -GI ppx with PPI -DVT ppx with SCDs, no AC due to anemia -Dispo: home, lives with son -Code status: FULL code, discussed at bedside Attestations Medical Necessity Statement*: Chalino Jeffrey's hospital stay will require greater than 2 midnights for treatment of pneumonia in a patient with underlying immunocompromise secondary to squamous cell carcinoma, requires close monitoring of hemodynamic and respiratory status, IV antibiotics. Time Spent in Patient Care: Greater than 35 minutes (>than 50% of time spent in counselling and/or direct pt care on unit). Coding Level of Care Code Acute Order Fulfillment Specialist for Padmini Fwd Diagnoses Pneumonia J18.9 Pneumonia type: due to unspecified organism Laterality: bilateral Lung location: lower lobe of lung Squamous cell lung cancer C34.91 Laterality: right Anemia D64.9 Anemia type: unspecified type
[2019-11-30] MEDS: sodium chloride 0.9% 1,000 ML 75 ML IV (14:09)
[2019-11-30] MEDS: levofloxacin-dextrose 5 % 750 MG/150 ML PREMIX 100 MG IV (14:10)
[2019-11-30] MEDS: apixaban 5 mg Tablet 2.5 MG PO (17:53)
[2019-11-30] MEDS: metoprolol tartrate 25 mg Tablet 12.5 MG PO (17:53)
[2019-11-30] MEDS: sennosides-docusate Tablet 1 TAB PO (17:53)
[2019-11-30] MEDS: ferrous sulfate EC 325 mg Tablet PO (17:53)
[2019-11-30] MEDS: OLANZapine 10 mg TABLET PO (21:51)
[2019-11-30] MEDS: OLANZapine 5 mg TABLET PO (21:51)
[2019-11-30] MEDS: tamsulosin 0.4 mg Capsule PO (21:52)
[2019-12-01] VITALS (23 sets, daily range): BP systolic 110–169; BP diastolic 69–106; PULSE 77–121; RESP 16–22; TEMP 36.6–37.3; O2SAT 90–96; BMI 17.2
[2019-12-01] MEDS: piperacillin-tazobactam 3.375 GM in sodium chloride 0.9% (plus) 50 ML IV ×3 (01:08→17:12)
[2019-12-01 03:11] LABS: Basophils % 0.2 %; Hematocrit 26.9 % (42.0-52.0); Hemoglobin 7.8 g/dL (11.7-16.6); Lymphocytes # 0.9 10^3/uL (0.8-4.8); Lymphocytes % 15.1 %; Mean Corpuscular Hemoglobin 24.8 pg (28.0-34.0); Mean Corpuscular Volume 85.7 fL (80-94); Mean Platelet Volume 11.3 fL (7.4-10.4); Monocytes # 0.6 10^3/uL (0.2-0.9); Monocytes % 9.8 %; Neutrophils # 4.22 10^3/uL (1.8-7.7); Neutrophils % 73.8 %; Nucleated Red Blood Cells % 0 %; Platelet Count 184 10^3/cmm (130-400); Red Blood Count 3.14 10^6/uL (4.1-5.3); Red Cell Distribution Width 18.6 % (12.1-15.1); White Blood Count 5.7 10^3/uL (4.0-10.0)
[2019-12-01 03:31] LABS: Anion Gap 16.1 (5-19); Blood Urea Nitrogen 9 mg/dL (8-23); Calcium 8.7 mg/dL (8.5-10.5); Carbon Dioxide 22 mmol/L (22-29); Chloride 106 mmol/L (98-107); Creatinine Clr Calc Pharmacy 60.6363; Glomerular Filtration Rate 164.4 mL/min (90-130); Glucose 110 mg/dL (65-115); Osmolality Calculated 287 mOsm/kg (285-295); Potassium 4.1 mmol/L (3.5-5.1); Sodium 140 mmol/L (136-145)
[2019-12-01] MEDS: sodium chloride 0.9% 1,000 ML 75 ML IV ×2 (06:07→20:02)
[2019-12-01] MEDS: ferrous sulfate EC 325 mg Tablet PO ×2 (08:04→17:13)
[2019-12-01] MEDS: metoprolol tartrate 25 mg Tablet 12.5 MG PO ×2 (08:04→17:12)
[2019-12-01] MEDS: pantoprazole DR 40 mg Tablet PO (08:05)
[2019-12-01] MEDS: sennosides-docusate Tablet 1 TAB PO ×2 (08:05→17:12)
[2019-12-01] MEDS: apixaban 5 mg Tablet 2.5 MG PO ×2 (08:05→17:12)
[2019-12-01] MEDS: digoxin 250 mcg Tablet PO (08:05)
[2019-12-01] MEDS: multivitamin therapeutic Tablet 1 TAB PO (08:06)
[2019-12-01] MEDS: sertraline 100 mg Tablet 200 MG PO (08:06)
--- NOTE | 2019-12-01 08:16 | P.PN_ITS ---
Subjective Subjective: Interval history: The patient states that he feels slightly better than yesterday. He continues to be short of breath at rest and feel like he has little energy. He has not had a significant amount of coughing, however has had some mild cough. The patient states that he has had 2 biopsies done here and has not had sufficient material for an adequate biopsy. He says that they are planning to do a biopsy in [place] to further evaluate. The patient denies active chest pains. He continues to have pain in his right upper back. Vitals/I&O/Wt Last Vital Signs Temp 98.4 F 12/01/19 04:00 Pulse 110 H 12/01/19 08:05 Resp 17 12/01/19 07:46 BP 135/71 12/01/19 04:00 Pulse Ox 96 12/01/19 07:46 11/30/19 12/01/19 12/01/19 22:59 06:59 14:59 Intake Total 170 / 170 1050 / 1220 Output Total 1150 / 1150 1200 / 2350 500 / 500 Balance -980 / -980 -150 / -1130 -500 / -500 Weight last 48 hrs Weight 110 lb Physical Exam Narrative: EXAM NARRATIVE: General: Alert and oriented x3, slightly dyspneic at rest. Mouth: No lesions noted Cardiac: Tachycardic rate with regular rhythm Lungs: Decreased air entry in the right base with scattered rhonchi diffusely. No significant wheezes at this time. Abdomen: Soft, nontender Extremities: No edema Data : 12/01/19 02:39 12/01/19 02:39 Micro: Microbiology 11/30/19 08:38 Blood Culture - Preliminary Blood SPECIMEN COLLECTED 11/30/19 11:00 Blood Culture - Preliminary Blood SPECIMEN COLLECTED A&P Additional A&P Information 1. Bilateral pneumonia -the patient has groundglass opacities in the bilateral lungs. The question is whether this is due to a pneumonia versus pulmonary edema. The patient is currently being treated for pneumonia with Zosyn, Levaquin and vancomycin. We will consider a dose of Lasix if he is not improving clinically. We will certainly need to watch for signs of complications in regards to transfusion. 2. Anemia -the patient's hemoglobin has dropped from 8.4-7.8. He is dyspneic at rest and weak in general. The underlying cause is likely secondary to the radiation and anemia of chronic disease. We will transfuse 2 units of blood and watch for signs of fluid overload. 3. Hypoxia -the patient is currently on 2 L of oxygen. The reason for his hypoxia is neither the underlying pneumonia versus fluid overload. We will follow to see how he improves overall. 4. Metastatic lung cancer -the patient's tumor has shrunk with radiation t reatments. There are scattered nodules present though. The patient will have another biopsy done in [place] for further evaluation. 5. Pain control -the patient's pain seems to be well controlled with Percocet. Continue with this medication and change if needed. 6. Prophylaxis -the patient is currently on Eliquis for A. fib prophylaxis and this should cover him for DVT prophylaxis as well. Attestations Medical Necessity Statement*: The patient continues need inpatient therapy and will be here for greater than 2 midnights. Coding Level of Care Code Acute Velocity Shooter for Padmini Killian
[2019-12-01] MEDS: vancomycin 1,000 MG in sodium chloride 0.9% 250 ML 250 MG IV (10:58)
[2019-12-01] MEDS: oxyCODONE-APAP 5-325 mg Tablet PO ×2 (11:35→19:59)
[2019-12-01] MEDS: FUROsemide 10 mg/mL SDV 4mL 40 MG IVP (12:07)
[2019-12-01] MEDS: sodium chloride 0.9% (100 ml) 100 ML 125 ML (12:10)
[2019-12-01] MEDS: levofloxacin-dextrose 5 % 750 MG/150 ML PREMIX 100 MG IV (14:57)
[2019-12-01] MEDS: predniSONE 20 mg Tablet 40 MG PO (15:03)
[2019-12-01] MEDS: sodium chloride 0.9% (100 ml) 100 ML (17:11)
[2019-12-01] MEDS: tamsulosin 0.4 mg Capsule PO (22:22)
[2019-12-01] MEDS: OLANZapine 5 mg TABLET PO (22:22)
[2019-12-01] MEDS: OLANZapine 10 mg TABLET PO (22:22)
[2019-12-01] MEDS: zolpidem 5 mg Tablet PO (22:22)
[2019-12-02] VITALS (16 sets, daily range): BP systolic 117–138; BP diastolic 62–84; PULSE 74–125; RESP 18–24; TEMP 36.7–37.2; O2SAT 83–97
[2019-12-02] MEDS: piperacillin-tazobactam 3.375 GM in sodium chloride 0.9% (plus) 50 ML IV ×2 (03:30→16:18)
[2019-12-02 04:49] LABS: Basophils % 0.1 %; Eosinophils % 0.1 %; Hematocrit 36.8 % (42.0-52.0); Hemoglobin 11.6 g/dL (11.7-16.6); Lymphocytes % 12.8 %; Mean Corpuscular HGB Conc 31.5 g/dL (30.0-36.0); Mean Corpuscular Hemoglobin 26.1 pg (28.0-34.0); Mean Corpuscular Volume 82.7 fL (80-94); Mean Platelet Volume 9.9 fL (7.4-10.4); Monocytes # 0.6 10^3/uL (0.2-0.9); Monocytes % 7.3 %; Neutrophils # 6.22 10^3/uL (1.8-7.7); Neutrophils % 78.8 %; Nucleated Red Blood Cells % 0 %; Platelet Count 186 10^3/cmm (130-400); Red Blood Count 4.45 10^6/uL (4.1-5.3); Red Cell Distribution Width 18.5 % (12.1-15.1); White Blood Count 7.9 10^3/uL (4.0-10.0)
[2019-12-02 05:36] LABS: Alanine Aminotransferase 23 U/L (0-41); Alkaline Phosphatase 137 IU/L (40-130); Anion Gap 11.8 (5-19); Aspartate Amino Transferase 17 U/L (0-40); Blood Urea Nitrogen 10 mg/dL (8-23); Calcium 8.4 mg/dL (8.5-10.5); Carbon Dioxide 26 mmol/L (22-29); Chloride 106 mmol/L (98-107); Creatinine Clr Calc Pharmacy 60.6363; Globulin 3.8 g/dL (1.3-4.6); Glomerular Filtration Rate 164.4 mL/min (90-130); Glucose 110 mg/dL (65-115); NT Pro B Type Natriuretic Pept 1325 pg/mL (0-125); Osmolality Calculated 287 mOsm/kg (285-295); Phosphorus 3.3 mg/dL (2.5-4.5); Potassium 3.8 mmol/L (3.5-5.1); Sodium 140 mmol/L (136-145); Total Bilirubin 0.3 mg/dL (0.15-1.2); Total Protein 6.8 g/dL (6.6-8.7)
[2019-12-02] MEDS: ipratropium-albuterol 3 mL Neb INHALATION ×3 (07:30→20:56)
--- NOTE | 2019-12-02 08:15 | P.PN_ITS ---
Subjective Subjective: Interval history: The patient states that he is feeling more dyspneic this morning. He denies any chest pains. It has been gradual since receiving transfusion. Vitals/I&O/Wt Last Vital Signs Temp 98.2 F 12/02/19 07:39 Pulse 103 H 12/02/19 07:39 Resp 22 H 12/02/19 07:39 BP 124/84 12/02/19 07:39 Pulse Ox 92 12/02/19 07:39 12/01/19 12/02/19 12/02/19 22:59 06:59 14:59 Intake Total 1730 / 2380 140 / 2520 Output Total 1940 / 3640 450 / 450 Balance -210 / -1260 140 / -1120 -450 / -450 Weight last 48 hrs Weight 110 lb Weight 110 lb Physical Exam Narrative: EXAM NARRATIVE: General: Alert and oriented x3, slightly dyspneic at rest. Mouth: No lesions noted Cardiac: Tachycardic rate with regular rhythm Lungs: Decreased air entry in the right base with scattered rhonchi diffusely. Occasional wheezes present. Crackles present at the bilateral bases. Abdomen: Soft, nontender Extremities: Trace edema Data : 12/02/19 04:37 12/02/19 04:37 Micro: Microbiology 11/30/19 08:38 Blood Culture - Preliminary Blood NEGATIVE TO DATE 11/30/19 11:00 Blood Culture - Preliminary Blood NEGATIVE TO DATE A&P Additional A&P Information 1. Bilateral pneumonia -the patient has groundglass opacities in the bilateral lungs. The question is whether this is due to a pneumonia versus pulmonary edema. The patient is currently being treated for pneumonia with Zosyn, Levaquin and vancomycin. His breathing has worsened overnight. Certainly the transfusion could have done this. We will give Lasix twice daily and stop his IV fluids. His I's and O's yesterday had an overall negative balance, however he continues to have crackles in the lungs. 2. Anemia -the patient's hemoglobin improved to 11.4. No need for further transfusion at this time. 3. Hypoxia -the patient is currently on 4 L of oxygen. The underlying cause is likely secondary to a combination of pneumonia and fluid overload. We will treat the fluid overload and continue with IV antibiotics. 4. Metastatic lung cancer -the patient's tumor has shrunk with radiation treatments. There are scattered nodules present though. The patient will have another biopsy done in [place] for further evaluation. I spoke with his nurse who will help facilitate setting up his appointment for biopsy. 5. Pain control -the patient's pain seems to be well controlled with Percocet. Continue with this medication and change if needed. 6. Prophylaxis -the patient is currently on Eliquis for A. fib prophylaxis and this should cover him for DVT prophylaxis as well. Attestations Medical Necessity Statement*: The patient continues need inpatient care as we manage the above issues. Coding Level of Care Code Acute Senior Technical Business Analyst for Padmini Killian
[2019-12-02] MEDS: pantoprazole DR 40 mg Tablet PO (09:16)
[2019-12-02] MEDS: sertraline 100 mg Tablet 200 MG PO (09:16)
[2019-12-02] MEDS: sennosides-docusate Tablet 1 TAB PO ×2 (09:17→17:36)
[2019-12-02] MEDS: apixaban 5 mg Tablet 2.5 MG PO ×2 (09:17→17:36)
[2019-12-02] MEDS: digoxin 250 mcg Tablet PO (09:17)
[2019-12-02] MEDS: multivitamin therapeutic Tablet 1 TAB PO (09:17)
[2019-12-02] MEDS: ferrous sulfate EC 325 mg Tablet PO ×2 (09:17→17:36)
[2019-12-02] MEDS: FUROsemide 10 mg/mL SDV 10mL 60 MG IVP ×2 (09:18→22:08)
[2019-12-02] MEDS: metoprolol tartrate 25 mg Tablet 12.5 MG PO ×2 (09:19→17:37)
[2019-12-02] MEDS: oxyCODONE-APAP 5-325 mg Tablet PO ×3 (10:43→22:12)
[2019-12-02] MEDS: vancomycin 1,000 MG in sodium chloride 0.9% 250 ML 250 MG IV (13:24)
[2019-12-02] MEDS: OLANZapine 10 mg TABLET PO (22:11)
[2019-12-02] MEDS: tamsulosin 0.4 mg Capsule PO (22:11)
[2019-12-02] MEDS: zolpidem 5 mg Tablet PO (22:11)
[2019-12-02] MEDS: levofloxacin-dextrose 5 % 750 MG/150 ML PREMIX 100 MG IV (22:13)
[2019-12-02] MEDS: OLANZapine 5 mg TABLET PO (22:13)
[2019-12-03] VITALS (14 sets, daily range): BP systolic 97–130; BP diastolic 50–76; PULSE 62–115; RESP 17–22; TEMP 36.6–37.2; O2SAT 89–97
[2019-12-03] MEDS: ipratropium-albuterol 3 mL Neb INHALATION ×2 (02:27→20:18)
[2019-12-03] MEDS: piperacillin-tazobactam 3.375 GM in sodium chloride 0.9% (plus) 50 ML IV ×3 (02:38→17:17)
[2019-12-03 04:56] LABS: Basophils % 0.1 %; Hematocrit 39.1 % (42.0-52.0); Lymphocytes # 0.5 10^3/uL (0.8-4.8); Lymphocytes % 4.8 %; Mean Corpuscular HGB Conc 30.7 g/dL (30.0-36.0); Mean Corpuscular Hemoglobin 25.5 pg (28.0-34.0); Mean Corpuscular Volume 83.2 fL (80-94); Mean Platelet Volume 10.3 fL (7.4-10.4); Monocytes # 0.4 10^3/uL (0.2-0.9); Monocytes % 3.6 %; Neutrophils % 90.7 %; Nucleated Red Blood Cells % 0 %; Platelet Count 212 10^3/cmm (130-400); Red Cell Distribution Width 18.6 % (12.1-15.1); White Blood Count 10.8 10^3/uL (4.0-10.0)
[2019-12-03 05:31] LABS: Alanine Aminotransferase 22 U/L (0-41); Albumin Level 3.1 g/dL (3.5-5.2); Alkaline Phosphatase 156 IU/L (40-130); Anion Gap 15.4 (5-19); Aspartate Amino Transferase 19 U/L (0-40); Blood Urea Nitrogen 17 mg/dL (8-23); Calcium 8.4 mg/dL (8.5-10.5); Carbon Dioxide 28 mmol/L (22-29); Chloride 96 mmol/L (98-107); Globulin 4.1 g/dL (1.3-4.6); Glomerular Filtration Rate 133.2 mL/min (90-130); Glucose 162 mg/dL (65-115); Magnesium 2.2 mg/dL (1.7-2.3); NT Pro B Type Natriuretic Pept 807 pg/mL (0-125); Osmolality Calculated 282 mOsm/kg (285-295); Phosphorus 3.4 mg/dL (2.5-4.5); Potassium 3.4 mmol/L (3.5-5.1); Sodium 136 mmol/L (136-145); Total Bilirubin 0.3 mg/dL (0.15-1.2); Total Protein 7.2 g/dL (6.6-8.7)
[2019-12-03] MEDS: sertraline 100 mg Tablet 200 MG PO (08:19)
[2019-12-03] MEDS: apixaban 5 mg Tablet 2.5 MG PO ×2 (08:19→17:18)
[2019-12-03] MEDS: LORazepam 1 mg Tablet 0.5 MG PO ×2 (08:19→22:29)
[2019-12-03] MEDS: multivitamin therapeutic Tablet 1 TAB PO (08:19)
[2019-12-03] MEDS: digoxin 250 mcg Tablet PO (08:19)
[2019-12-03] MEDS: pantoprazole DR 40 mg Tablet PO (08:19)
[2019-12-03] MEDS: ferrous sulfate EC 325 mg Tablet PO ×2 (08:20→17:18)
[2019-12-03] MEDS: sennosides-docusate Tablet 1 TAB PO ×2 (08:20→17:18)
--- NOTE | 2019-12-03 08:20 | PM.PN ---
Subjective Subjective: Interval history: The patient is improving today. His shortness of breath is much more stable. The patient felt that the Lasix has helped. The patient is also having complaints of not being able to sleep well at night and would like to have Ambien again. Vitals/I&O/Wt Last Vital Signs Temp 98.2 F 12/03/19 07:13 Pulse 64 12/03/19 07:13 Resp 20 H 12/03/19 07:13 BP 102/50 12/03/19 07:13 Pulse Ox 96 12/03/19 07:13 12/02/19 12/03/19 12/03/19 22:59 06:59 14:59 Intake Total 530 / 1300 240 / 1540 Output Total 700 / 3325 140 / 3465 300 / 300 Balance -170 / -2025 100 / -1925 -300 / -300 Weight last 48 hrs Weight 121 lb 6.4 oz Weight 110 lb Physical Exam Narrative: EXAM NARRATIVE: General: Alert and oriented x3, slightly dyspneic at rest. Mouth: No lesions noted Cardiac: Tachycardic rate with regular rhythm Lungs: Decreased air entry in the right base with scattered rhonchi diffusely. Occasional wheezes present. Crackles present at the bilateral bases. Abdomen: Soft, nontender Extremities: Trace edema Data : 12/03/19 04:14 12/03/19 04:14 A&P Additional A&P Information 1. Bilateral pneumonia -the patient has groundglass opacities in the bilateral lungs. The patient is currently being treated for pneumonia with Zosyn, Levaquin and vancomycin. 2. Anemia -the patient's hemoglobin is stable. 3. Hypoxia -the patient is currently on 5 L of oxygen. The underlying cause is likely secondary to a combination of pneumonia and fluid overload. The patient's overall dyspnea has improved with Lasix therapy. We will continue with Lasix today and replace potassium by mouth. 4. Metastatic lung cancer -the patient's tumor has shrunk with radiation treatments. There are scattered nodules present though. The patient will have another biopsy done in [place] for further evaluation. I spoke with his nurse who will help facilitate setting up his appointment for biopsy. 5. Pain control -the patient's pain seems to be well controlled with Percocet. Continue with this medication and change if needed. 6. Prophylaxis -the patient is currently on Eliquis for A. fib prophylaxis and this should cover him for DVT prophylaxis as well. Attestations Medical Necessity Statement*: The patient will be here for greater than 2 midnights due to treatment of the above issues. My hope is that he will be able to be discharged over the next couple of days depending on his course. He may need to be discharged home with oxygen. Coding Level of Care Code Acute Solar Sales Manager for Padmini Killian
[2019-12-03] MEDS: FUROsemide 10 mg/mL SDV 10mL 60 MG IVP ×2 (08:22→22:39)
--- NOTE | 2019-12-03 08:30 | PC.SOCIAL ---
IMM Page 2 of IMM explained to patient. Initialed, dated, and timed and placed in chart. Copy provided to patient.
[2019-12-03] MEDS: potassium chloride ER 10 mEq Tablet 40 MEQ PO ×2 (08:46→17:18)
[2019-12-03 12:39] LABS: Vancomycin Trough 4.9 ug/mL (10-15)
[2019-12-03] MEDS: vancomycin 1,000 MG in sodium chloride 0.9% 250 ML 250 MG IV (13:22)
[2019-12-03] MEDS: metoprolol tartrate 25 mg Tablet 12.5 MG PO (17:18)
[2019-12-03] MEDS: oxyCODONE-APAP 5-325 mg Tablet PO ×2 (17:28→22:29)
[2019-12-03] MEDS: OLANZapine 10 mg TABLET PO (22:07)
[2019-12-03] MEDS: OLANZapine 5 mg TABLET PO (22:08)
[2019-12-03] MEDS: tamsulosin 0.4 mg Capsule PO (22:08)
[2019-12-03] MEDS: levofloxacin-dextrose 5 % 750 MG/150 ML PREMIX 100 MG IV (22:38)
[2019-12-04] VITALS (11 sets, daily range): BP systolic 101–133; BP diastolic 66–87; PULSE 95–117; RESP 16–22; TEMP 36.3–36.9; O2SAT 93–99
[2019-12-04] MEDS: piperacillin-tazobactam 3.375 GM in sodium chloride 0.9% (plus) 50 ML IV ×3 (02:29→17:27)
[2019-12-04] MEDS: vancomycin 750 MG in sodium chloride 0.9% 250 ML 250 MG IV ×2 (02:40→14:55)
[2019-12-04 05:41] LABS: Basophils % 0.2 %; Eosinophils % 0.1 %; Hematocrit 42.4 % (42.0-52.0); Hemoglobin 12.8 g/dL (11.7-16.6); Lymphocytes # 0.7 10^3/uL (0.8-4.8); Lymphocytes % 6.6 %; Mean Corpuscular HGB Conc 30.2 g/dL (30.0-36.0); Mean Corpuscular Hemoglobin 25.8 pg (28.0-34.0); Mean Corpuscular Volume 85.3 fL (80-94); Monocytes # 0.4 10^3/uL (0.2-0.9); Monocytes % 4.1 %; Neutrophils # 9.33 10^3/uL (1.8-7.7); Neutrophils % 87.9 %; Nucleated Red Blood Cells % 0 %; Platelet Count 207 10^3/cmm (130-400); Red Blood Count 4.97 10^6/uL (4.1-5.3); Red Cell Distribution Width 19.1 % (12.1-15.1); White Blood Count 10.6 10^3/uL (4.0-10.0)
[2019-12-04 06:26] LABS: Alanine Aminotransferase 31 U/L (0-41); Albumin Level 3.1 g/dL (3.5-5.2); Alkaline Phosphatase 169 IU/L (40-130); Anion Gap 12.7 (5-19); Aspartate Amino Transferase 24 U/L (0-40); Blood Urea Nitrogen 26 mg/dL (8-23); Calcium 8.9 mg/dL (8.5-10.5); Carbon Dioxide 29 mmol/L (22-29); Chloride 100 mmol/L (98-107); Globulin 4.5 g/dL (1.3-4.6); Glomerular Filtration Rate 111.5 mL/min (90-130); Glucose 133 mg/dL (65-115); NT Pro B Type Natriuretic Pept 320 pg/mL (0-125); Osmolality Calculated 283 mOsm/kg (285-295); Potassium 4.7 mmol/L (3.5-5.1); Sodium 137 mmol/L (136-145); Total Bilirubin 0.3 mg/dL (0.15-1.2); Total Protein 7.6 g/dL (6.6-8.7)
--- NOTE | 2019-12-04 08:12 | P.PN_ITS ---
Subjective Subjective: Interval history: The patient states that his breathing is starting to improve. He was able to get to the bathroom on his own, however still feels weak. He is still on oxygen at 4.5 L/min. Vitals/I&O/Wt Last Vital Signs Temp 97.8 F 12/04/19 07:39 Pulse 105 H 12/04/19 07:39 Resp 20 H 12/04/19 07:39 BP 110/73 12/04/19 07:39 Pulse Ox 95 12/04/19 07:39 12/03/19 12/04/19 12/04/19 22:59 06:59 14:59 Intake Total 690 / 1830 50 / 1880 Output Total 250 / 1500 1150 / 2650 Balance 440 / 330 -1100 / -770 Weight last 48 hrs Weight 118 lb 4.8 oz Weight 121 lb 6.4 oz Physical Exam Narrative: EXAM NARRATIVE: General: Alert and oriented x3, slightly dyspneic at rest. Mouth: No lesions noted Cardiac: Tachycardic rate with regular rhythm Lungs: Decreased air entry in the right base with scattered rhonchi diffusely. Occasional wheezes present. No crackles. Abdomen: Soft, nontender Extremities: Trace edema Data : 12/04/19 05:15 12/04/19 05:15 A&P Additional A&P Information 1. Bilateral pneumonia -the patient has groundglass opacities in the bilateral lungs. The patient is currently being treated for pneumonia with Zosyn, Levaquin and vancomycin. 2. Anemia -the patient's hemoglobin is stable. 3. Hypoxia -the patient is currently on 4.5 L of oxygen. The underlying cause is likely secondary to a combination of pneumonia and fluid overload. The patient's overall dyspnea has improved with Lasix therapy. I will switch to oral Lasix today. 4. Metastatic lung cancer -the patient's tumor has shrunk with radiation treatments. There are scattered nodules present though. The patient will have another biopsy done in [place] for further evaluation. I spoke with his nurse who will help facilitate setting up his appointment for biopsy. 5. Pain control -the patient's pain seems to be well controlled with Percocet. Continue with this medication and change if needed. 6. Prophylaxis -the patient is currently on Eliquis for A. fib prophylaxis and this should cover him for DVT prophylaxis as well. Attestations Medical Necessity Statement*: Patient continues need inpatient care and we will look at discharge over the next 1 to 2 days. Coding Level of Care Code Acute Ore Dressing Engineer for Padmini Killian
[2019-12-04] MEDS: ferrous sulfate EC 325 mg Tablet PO ×2 (08:51→17:28)
[2019-12-04] MEDS: metoprolol tartrate 25 mg Tablet 12.5 MG PO (08:51)
[2019-12-04] MEDS: sertraline 100 mg Tablet 200 MG PO (08:51)
[2019-12-04] MEDS: multivitamin therapeutic Tablet 1 TAB PO (08:51)
[2019-12-04] MEDS: sennosides-docusate Tablet 1 TAB PO ×2 (08:51→17:28)
[2019-12-04] MEDS: digoxin 250 mcg Tablet PO (08:51)
[2019-12-04] MEDS: apixaban 5 mg Tablet 2.5 MG PO ×2 (08:52→17:27)
[2019-12-04] MEDS: pantoprazole DR 40 mg Tablet PO (08:52)
[2019-12-04] MEDS: ondansetron 2 mg/ML SDV 2 mL 4 MG IVP (17:30)
[2019-12-04] MEDS: ipratropium-albuterol 3 mL Neb INHALATION (20:52)
[2019-12-04] MEDS: OLANZapine 10 mg TABLET PO (21:59)
[2019-12-04] MEDS: zolpidem 5 mg Tablet PO (21:59)
[2019-12-04] MEDS: OLANZapine 5 mg TABLET PO (21:59)
[2019-12-04] MEDS: tamsulosin 0.4 mg Capsule PO (21:59)
[2019-12-04] MEDS: levofloxacin-dextrose 5 % 750 MG/150 ML PREMIX 100 MG IV (22:19)
[2019-12-04] MEDS: oxyCODONE-APAP 5-325 mg Tablet PO (22:42)
[2019-12-05] VITALS (10 sets, daily range): BP systolic 110–130; BP diastolic 72–81; PULSE 89–112; RESP 16–22; TEMP 36.3–36.7; O2SAT 83–97
[2019-12-05] MEDS: piperacillin-tazobactam 3.375 GM in sodium chloride 0.9% (plus) 50 ML IV ×3 (01:25→16:31)
[2019-12-05] MEDS: vancomycin 750 MG in sodium chloride 0.9% 250 ML 250 MG IV ×2 (02:33→15:28)
[2019-12-05 04:29] LABS: Basophils % 0.1 %; Eosinophils % 0.2 %; Hematocrit 41.1 % (42.0-52.0); Hemoglobin 12.4 g/dL (11.7-16.6); Lymphocytes # 0.8 10^3/uL (0.8-4.8); Lymphocytes % 7.7 %; Mean Corpuscular HGB Conc 30.2 g/dL (30.0-36.0); Mean Corpuscular Hemoglobin 26.2 pg (28.0-34.0); Mean Corpuscular Volume 86.7 fL (80-94); Mean Platelet Volume 10.6 fL (7.4-10.4); Monocytes # 0.4 10^3/uL (0.2-0.9); Monocytes % 3.7 %; Neutrophils # 9.35 10^3/uL (1.8-7.7); Neutrophils % 87.5 %; Nucleated Red Blood Cells % 0 %; Platelet Count 217 10^3/cmm (130-400); Red Blood Count 4.74 10^6/uL (4.1-5.3); Red Cell Distribution Width 18.8 % (12.1-15.1); White Blood Count 10.7 10^3/uL (4.0-10.0)
[2019-12-05 04:58] LABS: Alanine Aminotransferase 42 U/L (0-41); Albumin Level 3.1 g/dL (3.5-5.2); Alkaline Phosphatase 152 IU/L (40-130); Anion Gap 11.9 (5-19); Aspartate Amino Transferase 30 U/L (0-40); Blood Urea Nitrogen 25 mg/dL (8-23); Carbon Dioxide 30 mmol/L (22-29); Chloride 101 mmol/L (98-107); Creatinine Clr Calc Pharmacy 66.4247; Glomerular Filtration Rate 111.5 mL/min (90-130); Glucose 101 mg/dL (65-115); NT Pro B Type Natriuretic Pept 274 pg/mL (0-125); Osmolality Calculated 283 mOsm/kg (285-295); Potassium 4.9 mmol/L (3.5-5.1); Sodium 138 mmol/L (136-145); Total Bilirubin 0.3 mg/dL (0.15-1.2); Total Protein 7.1 g/dL (6.6-8.7)
[2019-12-05] MEDS: multivitamin therapeutic Tablet 1 TAB PO (08:03)
[2019-12-05] MEDS: ferrous sulfate EC 325 mg Tablet PO ×2 (08:03→17:17)
[2019-12-05] MEDS: sertraline 100 mg Tablet 200 MG PO (08:03)
[2019-12-05] MEDS: metoprolol tartrate 25 mg Tablet 12.5 MG PO ×2 (08:04→17:16)
[2019-12-05] MEDS: sennosides-docusate Tablet 1 TAB PO ×2 (08:04→17:15)
[2019-12-05] MEDS: pantoprazole DR 40 mg Tablet PO (08:05)
[2019-12-05] MEDS: digoxin 250 mcg Tablet PO (08:05)
[2019-12-05] MEDS: FUROsemide 40 mg Tablet PO (08:06)
[2019-12-05] MEDS: apixaban 5 mg Tablet 2.5 MG PO ×2 (08:06→17:15)
[2019-12-05] MEDS: ipratropium-albuterol 3 mL Neb INHALATION (08:59)
--- NOTE | 2019-12-05 10:11 | DCPLANNER ---
Pg 2 of IM updated and reviewed with pt. No questions, copy provided.
[2019-12-05] MEDS: oxyCODONE-APAP 5-325 mg Tablet PO ×2 (10:23→21:16)
[2019-12-05] MEDS: ondansetron 2 mg/ML SDV 2 mL 4 MG IVP (13:03)
[2019-12-05 13:58] LABS: Vancomycin Trough 13.1 ug/mL (10-15)
--- NOTE | 2019-12-05 14:48 | P.PN_ITS ---
Subjective Subjective: Interval history: The patient continues to have some shortness of breath and had difficulty with getting to the bathroom today. Patient denies any chest pains at this time. He has had some dizziness. Vitals/I&O/Wt Last Vital Signs Temp 98.0 F 12/05/19 11:59 Pulse 106 H 12/05/19 11:59 Resp 16 12/05/19 11:59 BP 120/81 12/05/19 11:59 Pulse Ox 97 12/05/19 11:59 12/04/19 12/05/19 12/05/19 22:59 06:59 14:59 Intake Total 660 / 710 530 / 1240 480 / 480 Output Total 550 / 1350 30 / 30 Balance 660 / -90 -20 / -110 450 / 450 Weight last 48 hrs Weight 120 lb 8 oz Physical Exam Narrative: EXAM NARRATIVE: General: Alert and oriented x3, slightly dyspneic at rest. Mouth: No lesions noted Cardiac: Tachycardic rate with regular rhythm Lungs: Decreased air entry in the right base with scattered rhonchi diffusely. Occasional wheezes present. No crackles. Abdomen: Soft, nontender Extremities: Trace edema Data : 12/05/19 04:05 12/05/19 04:05 Micro: Microbiology 12/04/19 14:00 MRSA Culture - Final Nose 11/30/19 08:38 Blood Culture - Final Blood NO GROWTH AFTER 5 DAYS 11/30/19 11:00 Blood Culture - Final Blood NO GROWTH AFTER 5 DAYS 11/30/19 14:00 Legionella Urinary Antigen - Final Urine,Voided A&P Additional A&P Information 1. Bilateral pneumonia -the patient has groundglass opacities in the bilateral lungs. The patient is currently being treated for pneumonia with Zosyn, Levaquin and vancomycin. His CRP levels have been gradually improving that to me are consistent with the underlying process being a pneumonia. He continues to have some dyspnea, but is improving. Likely discharge home tomorrow. 2. Anemia -the patient's hemoglobin is stable. 3. Hypoxia -the patient is currently on 4 L of oxygen. The underlying cause is likely secondary to pneumonia in conjunction with his lung cancer. Fluid overload was a portion of this, however I feel that his fluid status is now euvolemic. I will stop Lasix for now. 4. Metastatic lung cancer -the patient's tumor has shrunk with radiation treatments. There are scattered nodules present though. The patient will have another biopsy done in [place] for further evaluation. I spoke with his nurse who will help facilitate setting up his appointment for biopsy. Currently still awaiting biopsy appointment in [place]. 5. Pain control -the patient's pain seems to be well controlled with Percocet. Continue with this medication and change if needed. 6. Prophylaxis -the patient is currently on Eliquis for A. fib prophylaxis and this should cover him for DVT prophylaxis as well. Attestations Medical Necessity Statement*: The patient still has significant difficulty with getting to the bathroom with dyspnea. I feel that 1 more day of IV antibiotics would be in line given his underlying significant cancer. He does show signs of improvement each day and I believe that he will be able to be discharged home over the weekend. Coding Level of Care Code Acute Saddle Stitching Machine Operator for Padmini Killian
--- NOTE | 2019-12-05 14:51 | XR_ITS ---
WS: [id number] EXAM: AP CHEST: PORTABLE UPRIGHT DATE OF EXAM: 12/05/2019, 1455 hours COMPARISON: Chest x-rays from 10/15/2019, 11/12/2019 and 11/30/2019 HISTORY: Patient is 69 years old with shortness of breath and pneumonia. Follow-up. History of lung cancer.. FINDINGS: The cardiac silhouette is stable and within normal limits The mediastinal contours are similar. So ft tissue mass extending out of the right hilum into the right upper lobe with right upper lobe colla pse again seen. The degree of apical capping appears similar. The degree of infiltrate involving the right upper lobe has slightly regressed. Left-sided port catheter remains in place with the catheter ending in the distal SVC region.. The pulmonary vascularity is normal. Patchy infiltrate within th e left mid and lower chest is new since 10/15/2019, unchanged in the short-term most likely representin g a pneumonia. 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 No effusion or pneumothorax. Postsurgical juany nges are seen in the cervical spine as well as in the left shoulder clavicle/coracoid process junctur e. XR/XR chest 1V portable [id number] IMPRESSION: Persistent findings of an infiltrate suggesting an interstitial pneumonitis lef t mid and lower chest. New since October. Not extensively changed in the last 5 da ys. Slight regression in infiltrate involving the right upper lobe. Persistent find ings of a tumor mass in the right hilum with right hilar retraction and apical capping on the right. Elevated of the right hemidiaphragm most likely represented paralyzed right hem idiaphragm.
--- NOTE | 2019-12-05 15:01 | PC.NURSE ---
Patient offered bath and linen change. Patient refused.
[2019-12-05] MEDS: tamsulosin 0.4 mg Capsule PO (21:16)
[2019-12-05] MEDS: OLANZapine 5 mg TABLET PO (21:16)
[2019-12-05] MEDS: OLANZapine 10 mg TABLET PO (21:16)
[2019-12-05] MEDS: levofloxacin-dextrose 5 % 750 MG/150 ML PREMIX 100 MG IV (21:17)
[2019-12-05] MEDS: zolpidem 5 mg Tablet PO (21:17)
[2019-12-06] VITALS (14 sets, daily range): BP systolic 108–140; BP diastolic 64–78; PULSE 72–126; RESP 18–20; TEMP 36.3–36.8; O2SAT 92–97
[2019-12-06] MEDS: vancomycin 750 MG in sodium chloride 0.9% 250 ML 250 MG IV ×2 (01:07→14:32)
[2019-12-06] MEDS: piperacillin-tazobactam 3.375 GM in sodium chloride 0.9% (plus) 50 ML IV ×3 (02:14→17:30)
[2019-12-06 04:29] LABS: Basophils % 0.1 %; Eosinophils % 0.2 %; Hematocrit 42.9 % (42.0-52.0); Hemoglobin 12.9 g/dL (11.7-16.6); Lymphocytes # 0.9 10^3/uL (0.8-4.8); Lymphocytes % 9.4 %; Mean Corpuscular HGB Conc 30.1 g/dL (30.0-36.0); Mean Corpuscular Hemoglobin 25.9 pg (28.0-34.0); Mean Corpuscular Volume 86.1 fL (80-94); Mean Platelet Volume 10.5 fL (7.4-10.4); Monocytes # 0.4 10^3/uL (0.2-0.9); Monocytes % 4.2 %; Neutrophils # 8.49 10^3/uL (1.8-7.7); Nucleated Red Blood Cells % 0 %; Platelet Count 252 10^3/cmm (130-400); Red Blood Count 4.98 10^6/uL (4.1-5.3); Red Cell Distribution Width 18.6 % (12.1-15.1)
[2019-12-06 05:03] LABS: Alanine Aminotransferase 39 U/L (0-41); Albumin Level 3.2 g/dL (3.5-5.2); Alkaline Phosphatase 161 IU/L (40-130); Anion Gap 12.7 (5-19); Aspartate Amino Transferase 22 U/L (0-40); Blood Urea Nitrogen 24 mg/dL (8-23); Calcium 8.7 mg/dL (8.5-10.5); Carbon Dioxide 30 mmol/L (22-29); Chloride 100 mmol/L (98-107); Creatinine Clr Calc Pharmacy 66.4247; Globulin 3.8 g/dL (1.3-4.6); Glomerular Filtration Rate 111.5 mL/min (90-130); Glucose 114 mg/dL (65-115); NT Pro B Type Natriuretic Pept 255 pg/mL (0-125); Osmolality Calculated 284 mOsm/kg (285-295); Potassium 4.7 mmol/L (3.5-5.1); Sodium 138 mmol/L (136-145); Total Bilirubin 0.3 mg/dL (0.15-1.2)
[2019-12-06] MEDS: sertraline 100 mg Tablet 200 MG PO (08:30)
[2019-12-06] MEDS: ferrous sulfate EC 325 mg Tablet PO ×2 (08:30→17:30)
[2019-12-06] MEDS: sennosides-docusate Tablet 1 TAB PO ×2 (08:30→17:30)
[2019-12-06] MEDS: pantoprazole DR 40 mg Tablet PO (08:30)
[2019-12-06] MEDS: digoxin 250 mcg Tablet PO (08:30)
[2019-12-06] MEDS: apixaban 5 mg Tablet 2.5 MG PO ×2 (08:31→17:31)
[2019-12-06] MEDS: multivitamin therapeutic Tablet 1 TAB PO (08:31)
[2019-12-06] MEDS: metoprolol tartrate 25 mg Tablet 12.5 MG PO ×2 (08:31→17:30)
[2019-12-06] MEDS: oxyCODONE-APAP 5-325 mg Tablet PO ×2 (12:28→21:14)
--- NOTE | 2019-12-06 14:36 | PM.PN ---
Subjective Subjective: Interval history: Chalino reports he is very winded, even with little amount of exertion. He was wanting to go home today, but when we got him up to moving around he recognizes he needs to stay until his oxygen requirement is less. Medications: Reviewed: Yes Vitals/I&O/Wt Last Vital Signs Temp 97.6 F 12/06/19 11:45 Pulse 72 12/06/19 11:45 Resp 20 H 12/06/19 12:28 BP 122/64 12/06/19 11:45 Pulse Ox 96 12/06/19 12:28 12/05/19 12/06/19 12/06/19 22:59 06:59 14:59 Intake Total 660 / 1190 300 / 1490 640 / 640 Output Total 100 / 130 800 / 930 1100 / 1100 Balance 560 / 1060 -500 / 560 -460 / -460 Weight last 48 hrs Weight 53.116 kg Physical Exam Narrative: EXAM NARRATIVE: General exam no apparent distress Cardiovascular regular rate and rhythm Lungs coarse bibasilar Abdomen is soft with positive bowel sounds Extremities no cyanosis clubbing or edema Data : 12/06/19 04:08 12/06/19 04:08 Micro: Microbiology 12/04/19 14:00 MRSA Culture - Final Nose 11/30/19 08:38 Blood Culture - Final Blood NO GROWTH AFTER 5 DAYS 11/30/19 11:00 Blood Culture - Final Blood NO GROWTH AFTER 5 DAYS A&P Assessment and plan (1) Pneumonia: On Zosyn, Levaquin, and vancomycin CT chest negative for pulmonary embolism COVID testing was negative As MRSA PCR negative, will discontinue vancomycin Blood culture is negative Discontinue IV steroids, changed to prednisone Nebulized treatments every 6 hours Wean oxygen as tolerated Status: Acute Qualifiers: Laterality: bilateral Lung location: lower lobe of lung Pneumonia type: due to unspecified organism Qualified Code(s): J18.9 - Pneumonia, unspecified organism (2) Squamous cell lung cancer: -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 Sibley -MRI head (09/2019): no evidence of metastatic disease -has port-A-cath in place Status: Chronic Qualifiers: Laterality: right Qualified Code(s): C34.91 - Malignant neoplasm of unspecified part of right bronchus or lung (3) Anemia: -Has known history of chronic normocytic anemia with baseline hemoglobin of around 10 -likely multifactorial given iron deficiency, underlying malignancy, poor nutrition status -Monitor H&H closely -Transfuse blood products if needed -Resume iron supplementation Status: Acute Qualifiers: Anemia type: unspecified type Qualified Code(s): D64.9 - Anemia, unspecified Additional A&P Information Atrial fibrillation, paroxysmal. Currently on Eliquis, for anticoagulation. On beta-blockers and digoini for rate control Probable COPD with acute exacerbation. Change to oral prednisone. Scheduled breathing treatments. Anxiety/depression, continue home meds Full code Eliquis for DVT prophylaxis No need for laboratory tomorrow, unless needed after review of clinical improvement tomorrow. Attestations Medical Necessity Statement*: Needs continued hospitalization for IV antibiotics secondary to pneumonia. Coding Level of Care Code Acute Mergers And Acquisitions Associate for Padmini Killian Diagnoses Pneumonia J18.9 Laterality: bilateral Lung location: lower lobe of lung Pneumonia type: due to unspecified organism Squamous cell lung cancer C34.91 Laterality: right Anemia D64.9 Anemia type: unspecified type
[2019-12-06] MEDS: ipratropium-albuterol 3 mL Neb INHALATION ×2 (15:12→22:08)
--- NOTE | 2019-12-06 15:21 | PC.CHAP ---
Pastoral Care Encounter/Spiritual Assessment Type of Contact [] Declined driller and reamer visit [] Patient/Family/Request visit [] Outpatient visit [] Follow-up visit [] Physician referral [] Code/Alert [X] Routine visit [] Staff referral [] Actively dying [] Patient sleeping [] Family support [] [] Out of room [] Palliative care [] [] Receiving care in room [] Pre-surgical visit [] Trauma [] Long length of stay [] ICU visit [] Other: Relational/Emotional Strength [X] Patient feels connected with others/family/visitors/staff [] Distress [] Loneliness/isolation [] Abandonment Spirituality of Patient [] Person of Maru [] Attends Oriental Orthodox of their [place] [] Believes in Prayer [] Reads Bible or Taoism materials [] There are Spiritual issues to be addressed Mailer Interventions [] Prayer [] Active listening [X] Non-anxious presence [] Spiritual/emotional support [] Crisis/trauma care [] Spiritual counseling [] Bereavement support [] Provided bereavement packet [] Provided Bible/devotional materials [] Provided toy/stuffed animal, coloring book to patient or family member [] Provided Communion [] Anointing/[place] [] Salvation [X] Completed spiritual assessment [] Other: Impact on Illness or Injury [] Angry [] Fearful [] Anxious [] Often cries [] Exhaustion [] Unable to work [] Unable to attend islam [] Unable to walk/stand [] Unable to read [] Unable to drive [] Unable to eat/drink [] Unable to sleep [] Unable to be with family [] Patient intubated [] Other: Summary: Pt hoping to be discharged tomorrow. He has lung cancer dx'ed in July. He has had 2 chemo tx but they've stopped in order to do another bx (per patient) before resuming chemo. He was solidly engaged in [employer] playoff game so I'll visit him again tomorrow. He was receptive to the visit, despite the basketball game. He lives with his son. Time spent with patient: <5mins
[2019-12-06] MEDS: OLANZapine 5 mg TABLET PO (21:14)
[2019-12-06] MEDS: levofloxacin-dextrose 5 % 750 MG/150 ML PREMIX 100 MG IV (21:14)
[2019-12-06] MEDS: OLANZapine 10 mg TABLET PO (21:14)
[2019-12-06] MEDS: zolpidem 5 mg Tablet PO (21:14)
[2019-12-06] MEDS: tamsulosin 0.4 mg Capsule PO (21:14)
[2019-12-07] VITALS (17 sets, daily range): BP systolic 97–126; BP diastolic 63–84; PULSE 68–120; RESP 16–22; TEMP 36.4–36.9; O2SAT 92–99; BMI 18.3
[2019-12-07] MEDS: piperacillin-tazobactam 3.375 GM in sodium chloride 0.9% (plus) 50 ML IV ×3 (00:32→16:39)
[2019-12-07] MEDS: ipratropium-albuterol 3 mL Neb INHALATION ×4 (03:23→20:24)
[2019-12-07] MEDS: metoprolol tartrate 25 mg Tablet 12.5 MG PO ×2 (08:36→16:40)
[2019-12-07] MEDS: sertraline 100 mg Tablet 200 MG PO (08:36)
[2019-12-07] MEDS: sennosides-docusate Tablet 1 TAB PO ×2 (08:36→16:39)
[2019-12-07] MEDS: predniSONE 20 mg Tablet 40 MG PO (08:36)
[2019-12-07] MEDS: ferrous sulfate EC 325 mg Tablet PO ×2 (08:37→16:43)
[2019-12-07] MEDS: digoxin 250 mcg Tablet PO (08:37)
[2019-12-07] MEDS: multivitamin therapeutic Tablet 1 TAB PO (08:37)
[2019-12-07] MEDS: apixaban 5 mg Tablet 2.5 MG PO ×2 (08:37→16:42)
[2019-12-07] MEDS: pantoprazole DR 40 mg Tablet PO (08:37)
--- NOTE | 2019-12-07 11:22 | PM.PN ---
Subjective Subjective: Interval history: Chalino reports he still feels pretty rough. Still pretty short of breath with any exertion. Yesterday when he got up his oxygen saturation dipped into the 70s with mild exertion. Medications: Reviewed: Yes Vitals/I&O/Wt Last Vital Signs Temp 98.3 F 12/07/19 08:12 Pulse 117 H 12/07/19 09:01 Resp 16 12/07/19 08:55 BP 124/84 12/07/19 08:12 Pulse Ox 96 12/07/19 08:55 12/06/19 12/07/19 12/07/19 22:59 06:59 14:59 Intake Total 830 / 1520 270 / 1790 820 / 820 Output Total 1200 / 2300 480 / 2780 180 / 180 Balance -370 / -780 -210 / -990 640 / 640 Weight last 48 hrs Weight 53.116 kg Weight 53.116 kg Physical Exam Narrative: EXAM NARRATIVE: General exam no apparent distress. Still requiring 4 L per nasal cannula Cardiovascular regular rate and rhythm Lungs coarse bibasilar Abdomen is soft with positive bowel sounds Extremities no cyanosis clubbing or edema Data : 12/06/19 04:08 12/06/19 04:08 Micro: Microbiology 12/06/19 14:35 Bacterial Antigens - Final Urine,Clean Catch A&P Assessment and plan (1) Pneumonia: On Zosyn, Levaquin. Vancomycin discontinued as MRSA PCR negative CT chest negative for pulmonary embolism COVID testing was negative Blood culture is negative Currently on steroids by mouth Nebulized treatments every 6 hours Wean oxygen as tolerated. 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 Sibley -MRI head (09/2019): no evidence of metastatic disease -has port-A-cath in place Status: Chronic Qualifiers: Laterality: right Qualified Code(s): C34.91 - Malignant neoplasm of unspecified part of right bronchus or lung (3) Anemia: -Has known history of chronic normocytic anemia with baseline hemoglobin of around 10 -likely multifactorial given iron deficiency, underlying malignancy, poor nutrition status -Monitor H&H closely -Transfuse blood products if needed -Resume iron supplementation Status: Acute Qualifiers: Anemia type: unspecified type Qualified Code(s): D64.9 - Anemia, unspecified Additional A&P Information Atrial fibrillation, paroxysmal. Currently on Eliquis, for anticoagulation. On beta-blockers and digoxin for rate control Probable COPD with acute exacerbation. Nebs, oral prednisone Anxiety/depression, continue home meds Full code Eliquis for DVT prophylaxis Attestations Medical Necessity Statement*: Needs continued hospitalization for IV antibiotics secondary to pneumonia. Coding Level of Care Code Acute Art Consultant for [facility] Fwd Diagnoses Pneumonia J18.9 Laterality: bilateral Lung location: lower lobe of lung Pneumonia type: due to unspecified organism Squamous cell lung cancer C34.91 Laterality: right Anemia D64.9 Anemia type: unspecified type
--- NOTE | 2019-12-07 15:14 | DCPLANNER ---
Pg 2 of IM updated and reviewed with pt. No questions, copy provided.
[2019-12-07] MEDS: guaiFENesin 600 mg Tablet PO (16:40)
[2019-12-07] MEDS: oxyCODONE-APAP 5-325 mg Tablet PO (20:15)
[2019-12-07] MEDS: OLANZapine 5 mg TABLET PO (20:17)
[2019-12-07] MEDS: levofloxacin-dextrose 5 % 750 MG/150 ML PREMIX 100 MG IV (20:17)
[2019-12-07] MEDS: OLANZapine 10 mg TABLET PO (20:17)
[2019-12-07] MEDS: zolpidem 5 mg Tablet PO (20:17)
[2019-12-07] MEDS: tamsulosin 0.4 mg Capsule PO (20:17)
[2019-12-08] VITALS (14 sets, daily range): BP systolic 99–111; BP diastolic 64–74; PULSE 77–127; RESP 16–22; TEMP 36.2–37.1; O2SAT 93–99
[2019-12-08] MEDS: piperacillin-tazobactam 3.375 GM in sodium chloride 0.9% (plus) 50 ML IV (00:54)
[2019-12-08] MEDS: ipratropium-albuterol 3 mL Neb INHALATION ×3 (02:31→14:39)
[2019-12-08 04:28] LABS: Basophils % 0.2 %; Eosinophils # 0.2 10^3/uL (0.0-0.8); Eosinophils % 2.4 %; Hematocrit 38.6 % (42.0-52.0); Hemoglobin 11.4 g/dL (11.7-16.6); Lymphocytes # 1.1 10^3/uL (0.8-4.8); Lymphocytes % 13.8 %; Mean Corpuscular HGB Conc 29.5 g/dL (30.0-36.0); Mean Corpuscular Hemoglobin 25.4 pg (28.0-34.0); Mean Corpuscular Volume 86.2 fL (80-94); Mean Platelet Volume 10.8 fL (7.4-10.4); Monocytes # 0.5 10^3/uL (0.2-0.9); Monocytes % 5.5 %; Neutrophils # 6.24 10^3/uL (1.8-7.7); Neutrophils % 76.5 %; Nucleated Red Blood Cells % 0 %; Platelet Count 245 10^3/cmm (130-400); Red Blood Count 4.48 10^6/uL (4.1-5.3); Red Cell Distribution Width 18.5 % (12.1-15.1); White Blood Count 8.2 10^3/uL (4.0-10.0)
[2019-12-08 04:48] LABS: Anion Gap 12.7 (5-19); Blood Urea Nitrogen 17 mg/dL (8-23); Calcium 8.8 mg/dL (8.5-10.5); Carbon Dioxide 30 mmol/L (22-29); Chloride 102 mmol/L (98-107); Glomerular Filtration Rate 111.5 mL/min (90-130); Glucose 92 mg/dL (65-115); Osmolality Calculated 288 mOsm/kg (285-295); Potassium 3.7 mmol/L (3.5-5.1); Sodium 141 mmol/L (136-145)
--- NOTE | 2019-12-08 08:22 | P.PN_ITS ---
Subjective Subjective: Interval history: The patient has continued to have a cough that is nonproductive. He feels like there is something in his lungs that will not come up. The patient becomes very short of breath with any exertion and even with standing at the bedside his oxygen will drop into the 70% range even with 4 L oxygen via nasal cannula. The patient denies any chest pains at this time. Medications: Reviewed: Yes Vitals/I&O/Wt Last Vital Signs Temp 97.6 F 12/08/19 07:22 Pulse 107 H 12/08/19 07:22 Resp 18 12/08/19 07:22 BP 102/74 12/08/19 07:22 Pulse Ox 97 12/08/19 07:22 12/07/19 12/08/19 12/08/19 22:59 06:59 14:59 Intake Total 410 / 1280 500 / 1780 Output Total 1000 / 1480 900 / 2380 250 / 250 Balance -590 / -200 -400 / -600 -250 / -250 Weight last 48 hrs Weight 117 lb 1.6 oz Weight 117 lb 1.6 oz Physical Exam Narrative: EXAM NARRATIVE: General: Alert and oriented x3, slightly dyspneic at rest. Mouth: No lesions noted Cardiac: Tachycardic rate with regular rhythm Lungs: Decreased air entry in the right base with scattered rhonchi diffusely. Occasional wheezes present. No crackles. Abdomen: Soft, nontender Extremities: Trace edema Data : 12/08/19 03:54 12/08/19 03:54 A&P Additional A&P Information 1. Bilateral pneumonia -the patient has groundglass opacities in the bilateral lungs. The patient is currently being treated for pneumonia with Zosyn and Levaquin and I will switch this regimen to Levaquin, imipenem and Bactrim To cover more atypical infections and resistant infections. His CRP levels have been gradually improving but clinically he continues to have significant dyspnea. Certainly his cancer is playing a part in this, however I feel that there is still a portion of infection that is playing a part as well. We will need to continue with inpatient care as we try this regimen. 2. Anemia -the patient's hemoglobin is stable. 3. Hypoxia -the patient is currently on 4 L of oxygen. His oxygen continues to desaturate with any levels of exertion. I would like this to improve to some degree prior to discharge. 4. Metastatic lung cancer -the patient's tumor has shrunk with radiation treatments. There are scattered nodules present though. The patient will have another biopsy done in [place] for further evaluation. I spoke with his nurse who will help facilitate setting up his appointment for biopsy. Currently still awaiting biopsy appointment in [place]. 5. Pain control -the patient's pain seems to be well controlled with Percocet. Continue with this medication and change if needed. 6. Prophylaxis -the patient is currently on Eliquis for A. fib prophylaxis and this should cover him for DVT prophylaxis as well. Attestations Medical Necessity Statement*: The patient continues need inpatient care as his oxygen saturations dropped significantly with any exertion. Coding Level of Care Code Acute Commission Specialist for Padmini Killian
[2019-12-08] MEDS: pantoprazole DR 40 mg Tablet PO (09:20)
[2019-12-08] MEDS: predniSONE 20 mg Tablet 40 MG PO (09:20)
[2019-12-08] MEDS: guaiFENesin 600 mg Tablet PO ×2 (09:21→17:10)
[2019-12-08] MEDS: digoxin 250 mcg Tablet PO (09:21)
[2019-12-08] MEDS: sennosides-docusate Tablet 1 TAB PO ×2 (09:21→17:10)
[2019-12-08] MEDS: sertraline 100 mg Tablet 200 MG PO (09:21)
[2019-12-08] MEDS: apixaban 5 mg Tablet 2.5 MG PO ×2 (09:23→17:10)
[2019-12-08] MEDS: multivitamin therapeutic Tablet 1 TAB PO (09:24)
[2019-12-08] MEDS: metoprolol tartrate 25 mg Tablet 12.5 MG PO ×2 (09:24→17:11)
[2019-12-08] MEDS: ferrous sulfate EC 325 mg Tablet PO ×2 (09:25→17:10)
[2019-12-08] MEDS: sulfamethoxazole-trimeth DS 160-800 mg Tablet 1 TAB PO ×2 (09:25→17:10)
--- NOTE | 2019-12-08 10:07 | PC.OT ---
OT note: Pt's heart rate 120 bpm, O2 sat 91% at rest sitting in chair. Pt requested back to bed, able to do independently. HR continued at 120 bpm and O2 sat continued at 91% on nasal cannula. Held further activity at this time. RN alerted to pt's status.
[2019-12-08] MEDS: tamsulosin 0.4 mg Capsule PO (20:51)
[2019-12-08] MEDS: OLANZapine 5 mg TABLET PO (20:51)
[2019-12-08] MEDS: OLANZapine 10 mg TABLET PO (20:51)
[2019-12-08] MEDS: oxyCODONE-APAP 5-325 mg Tablet PO (20:51)
[2019-12-08] MEDS: levofloxacin-dextrose 5 % 750 MG/150 ML PREMIX 100 MG IV (20:53)
[2019-12-08] MEDS: zolpidem 5 mg Tablet PO (22:33)
[2019-12-09] VITALS (13 sets, daily range): BP systolic 105–126; BP diastolic 69–80; PULSE 110–132; RESP 16–24; TEMP 36.6–36.9; O2SAT 87–98
[2019-12-09 05:02] LABS: Basophils % 0.2 %; Eosinophils # 0.3 10^3/uL (0.0-0.8); Eosinophils % 2.5 %; Hematocrit 41.3 % (42.0-52.0); Hemoglobin 12.4 g/dL (11.7-16.6); Lymphocytes % 9.3 %; Mean Corpuscular Hemoglobin 26.3 pg (28.0-34.0); Mean Corpuscular Volume 87.5 fL (80-94); Mean Platelet Volume 10.8 fL (7.4-10.4); Monocytes # 0.6 10^3/uL (0.2-0.9); Monocytes % 5.5 %; Neutrophils # 9.08 10^3/uL (1.8-7.7); Neutrophils % 81.4 %; Nucleated Red Blood Cells % 0 %; Platelet Count 251 10^3/cmm (130-400); Red Blood Count 4.72 10^6/uL (4.1-5.3); Red Cell Distribution Width 18.8 % (12.1-15.1); White Blood Count 11.2 10^3/uL (4.0-10.0)
[2019-12-09 05:43] LABS: Alanine Aminotransferase 34 U/L (0-41); Alkaline Phosphatase 138 IU/L (40-130); Anion Gap 11.3 (5-19); Aspartate Amino Transferase 23 U/L (0-40); Blood Urea Nitrogen 20 mg/dL (8-23); Calcium 8.6 mg/dL (8.5-10.5); Carbon Dioxide 28 mmol/L (22-29); Chloride 104 mmol/L (98-107); Globulin 3.5 g/dL (1.3-4.6); Glomerular Filtration Rate 133.2 mL/min (90-130); Glucose 88 mg/dL (65-115); NT Pro B Type Natriuretic Pept 366 pg/mL (0-125); Osmolality Calculated 284 mOsm/kg (285-295); Potassium 4.3 mmol/L (3.5-5.1); Sodium 139 mmol/L (136-145); Total Bilirubin 0.2 mg/dL (0.15-1.2); Total Protein 6.5 g/dL (6.6-8.7)
--- NOTE | 2019-12-09 08:26 | P.PN_ITS ---
Subjective Subjective: Interval history: The patient states that even with sitting up in bed he is feeling more short of breath than before. The patient denies any chest pains. He feels like he has some congestion in his lungs that he cannot get out. He has no productive cough currently. He feels that he is worse today than yesterday. Medications: Reviewed: Yes Vitals/I&O/Wt Last Vital Signs Temp 98.4 F 12/09/19 07:41 Pulse 122 H 12/09/19 07:41 Resp 16 12/09/19 07:41 BP 105/71 12/09/19 07:41 Pulse Ox 93 12/09/19 07:41 12/08/19 12/09/19 12/09/19 22:59 06:59 14:59 Intake Total 400 / 837 Output Total 550 / 1050 450 / 1500 380 / 380 Balance -150 / -213 -450 / -663 -380 / -380 Weight last 48 hrs Weight 117 lb 1.6 oz Physical Exam Narrative: EXAM NARRATIVE: General: Alert and oriented x3, slightly dyspneic at rest. Mouth: No lesions noted Cardiac: Tachycardic rate with regular rhythm Lungs: Decreased air entry in the right base with mild scattered rhonchi diffusely. Occasional wheezes present. No crackles. Abdomen: Soft, nontender Extremities: Trace edema Data : 12/09/19 04:33 12/09/19 04:33 A&P Additional A&P Information 1. Bilateral pneumonia - The patient is currently being treated for pneumonia with Levaquin, imipenem and Bactrim. He was on Levaquin and Zosyn for 9 days without significant improvement, so was changed to the current regiment on 12/08/2019 to help cover for atypicals or resistant strains. The patient is not improving well at this time. The underlying causes could be secondary to his underlying cancer. We will continue with current antibiotics. I will add IV steroids back and will consult pulmonology to further evaluate. 2. Anemia -the patient's hemoglobin is stable. 3. Hypoxia -the patient is currently on 4 L of oxygen. His oxygen continues to desaturate with any levels of exertion. I would like this to improve to some degree prior to discharge. 4. Metastatic lung cancer -the patient's tumor has shrunk with radiation treatments. There are scattered nodules present though. The patient will have another biopsy done in [place] for further evaluation. I spoke with his nurse today who will help facilitate setting up his appointment for biopsy. Currently still awaiting biopsy appointment in [place]. The patient sees Dr. Sibley locally. 5. Pain control -the patient's pain seems to be well controlled with Percocet. Continue with this medication and change if needed. 6. Prophylaxis -the patient is currently on Eliquis for A. fib prophylaxis and this should cover him for DVT prophylaxis as well. Attestations Medical Necessity Statement*: The patient continues need inpatient care as his breathing is not improving and continues need significant amounts of oxygen. Coding Level of Care Code Acute Procurement Professional Logistics for Padmini Killian
--- NOTE | 2019-12-09 08:30 | XRR_ITS ---
PROCEDURE INFORMATION: Exam: XR Chest, 1 View Exam date and time: 12/09/2019 8:46 AM Age: 69 years old Clinical indication: Shortness of breath; Additional info: Pneumonia TECHNIQUE: Imaging protocol: XR of the chest Views: Frontal portable view of the chest. COMPARISON: CR XR chest 1V portable [id number] 12/05/2019 2:54 PM FINDINGS: Tubes, catheters and devices: A left subclavian catheter is present with the tip in the cavoatrial junction. Lower cervical spinal anterior fixation hardware. EKG leads are present overlying the chest. Lungs: Right hilar pulmonary mass and right upper lobe atelectasis/scarring, stable. Increase in patchy infiltrates in the left mid-lower lung zone. The pulmonary vasculature is obscured by increased lung attenuation. Pleural space: No pleural effusion. No pneumothorax. Heart/Mediastinum: The heart is normal in size and contour. Mediastinum: Stable. Vasculature: Mild aortic arch atherosclerotic calcification without ectasia. Diaphragm: The right hemidiaphragm remains moderately elevated. Bones/joints: Stable. Organs: The gallbladder is likely surgically absent, with metallic clips overlying the gallbladder fossa. XR/XR chest 1V portable [id number] IMPRESSION: 1. Right hilar pulmonary mass and right upper lobe atelectasis/scarring, stable. 2. Increase in patchy infiltrates in the left mid-lower lung zone. Pneumonitis is difficult to exclude. Clinical correlation is recommended. 3. Prior cholecystectomy.
--- NOTE | 2019-12-09 09:17 | PC.RESP ---
Pt HR 126
[2019-12-09 09:39] LABS: ABG PCO2 38.8 mmHg (35-45); ABG PH Result 7.45 (7.35-7.45); Alveolar-Arterial Oxygen Gradi 16.7 mmHg (5-10); Arterial Blood Gas Hematocrit 41.6 % (42-52); Base Excess ABG 2.9 mmol/L (-2.0-2.0); Blood Gas Operator Identificat glc; Blood Gas Sample Site Brachial, left; Blood Gas Sample Type Arterial; Carboxyhemoglobin 1.1 %THgb (0.4-20.1); HGB O2 Sat 95.3 % (95-100); Ionized Calcium Level - ABG 1.3 mmol/L (1.1-1.4); Methemoglobin 0.8 % (0.4-1.5); Oxygen Device NC; Oxygen Saturation ABG 97.2; PO2 ABG 80.4 mmHg (80.0-100.0); Potassium Level - ABG 3.8 mmol/L (3.5-5.0); Total Hemoglobin 13.6 g/dL (14-18)
[2019-12-09] MEDS: guaiFENesin 600 mg Tablet PO ×2 (09:59→17:23)
[2019-12-09] MEDS: digoxin 250 mcg Tablet PO (09:59)
[2019-12-09] MEDS: sertraline 100 mg Tablet 200 MG PO (09:59)
[2019-12-09] MEDS: multivitamin therapeutic Tablet 1 TAB PO (10:00)
[2019-12-09] MEDS: sulfamethoxazole-trimeth DS 160-800 mg Tablet 1 TAB PO ×2 (10:00→17:21)
[2019-12-09] MEDS: apixaban 5 mg Tablet 2.5 MG PO ×2 (10:01→17:22)
[2019-12-09] MEDS: ferrous sulfate EC 325 mg Tablet PO ×2 (10:01→17:23)
[2019-12-09] MEDS: sennosides-docusate Tablet 1 TAB PO ×2 (10:01→17:23)
[2019-12-09] MEDS: pantoprazole DR 40 mg Tablet PO (10:01)
[2019-12-09] MEDS: metoprolol tartrate 25 mg Tablet 12.5 MG PO ×2 (10:02→17:23)
[2019-12-09] MEDS: ondansetron 2 mg/ML SDV 2 mL 4 MG IVP (10:49)
--- NOTE | 2019-12-09 11:34 | DCPLANNER ---
Pg 2 of IM updated and reviewed with pt. No questions, copy provided.
[2019-12-09] MEDS: ipratropium-albuterol 3 mL Neb INHALATION (14:47)
[2019-12-09] MEDS: oxyCODONE-APAP 5-325 mg Tablet PO ×2 (17:19→22:04)
[2019-12-09] MEDS: OLANZapine 10 mg TABLET PO (22:05)
[2019-12-09] MEDS: tamsulosin 0.4 mg Capsule PO (22:06)
[2019-12-09] MEDS: zolpidem 5 mg Tablet PO (22:06)
[2019-12-09] MEDS: OLANZapine 5 mg TABLET PO (22:06)
[2019-12-09] MEDS: levofloxacin-dextrose 5 % 750 MG/150 ML PREMIX 100 MG IV (22:48)
[2019-12-10] VITALS (15 sets, daily range): BP systolic 96–117; BP diastolic 63–81; PULSE 97–140; RESP 16–24; TEMP 36.5–36.9; O2SAT 84–97
[2019-12-10] MEDS: ipratropium-albuterol 3 mL Neb INHALATION ×2 (03:26→08:57)
[2019-12-10 05:17] LABS: Basophils % 0.1 %; Hematocrit 40.6 % (42.0-52.0); Hemoglobin 12.3 g/dL (11.7-16.6); Lymphocytes # 0.8 10^3/uL (0.8-4.8); Lymphocytes % 5.8 %; Mean Corpuscular HGB Conc 30.3 g/dL (30.0-36.0); Mean Corpuscular Hemoglobin 25.9 pg (28.0-34.0); Mean Corpuscular Volume 85.7 fL (80-94); Mean Platelet Volume 9.8 fL (7.4-10.4); Monocytes # 0.2 10^3/uL (0.2-0.9); Monocytes % 1.4 %; Neutrophils # 11.72 10^3/uL (1.8-7.7); Neutrophils % 91.3 %; Nucleated Red Blood Cells % 0 %; Platelet Count 292 10^3/cmm (130-400); Red Blood Count 4.74 10^6/uL (4.1-5.3); Red Cell Distribution Width 18.8 % (12.1-15.1); White Blood Count 12.8 10^3/uL (4.0-10.0)
[2019-12-10 05:49] LABS: Alanine Aminotransferase 30 U/L (0-41); Albumin Level 3.1 g/dL (3.5-5.2); Alkaline Phosphatase 156 IU/L (40-130); Anion Gap 11.9 (5-19); Aspartate Amino Transferase 17 U/L (0-40); Blood Urea Nitrogen 22 mg/dL (8-23); Calcium 8.9 mg/dL (8.5-10.5); Carbon Dioxide 28 mmol/L (22-29); Chloride 100 mmol/L (98-107); Glomerular Filtration Rate 133.2 mL/min (90-130); Glucose 139 mg/dL (65-115); NT Pro B Type Natriuretic Pept 361 pg/mL (0-125); Osmolality Calculated 279 mOsm/kg (285-295); Potassium 4.9 mmol/L (3.5-5.1); Sodium 135 mmol/L (136-145); Total Bilirubin 0.2 mg/dL (0.15-1.2); Total Protein 7.1 g/dL (6.6-8.7)
[2019-12-10] MEDS: apixaban 5 mg Tablet 2.5 MG PO ×2 (09:10→17:18)
[2019-12-10] MEDS: ferrous sulfate EC 325 mg Tablet PO ×2 (09:11→17:17)
[2019-12-10] MEDS: pantoprazole DR 40 mg Tablet PO (09:11)
[2019-12-10] MEDS: metoprolol tartrate 25 mg Tablet 12.5 MG PO ×2 (09:11→17:18)
[2019-12-10] MEDS: sulfamethoxazole-trimeth DS 160-800 mg Tablet 1 TAB PO ×2 (09:11→17:17)
[2019-12-10] MEDS: multivitamin therapeutic Tablet 1 TAB PO (09:12)
[2019-12-10] MEDS: sertraline 100 mg Tablet 200 MG PO (09:12)
[2019-12-10] MEDS: guaiFENesin 600 mg Tablet PO ×2 (09:12→17:17)
[2019-12-10] MEDS: sennosides-docusate Tablet 1 TAB PO ×2 (09:13→17:17)
[2019-12-10] MEDS: digoxin 250 mcg Tablet PO (09:16)
[2019-12-10] MEDS: ondansetron 2 mg/ML SDV 2 mL 4 MG IVP (13:47)
[2019-12-10] MEDS: oxyCODONE-APAP 5-325 mg Tablet PO ×2 (17:17→22:12)
--- NOTE | 2019-12-10 18:28 | PM.PN ---
Subjective Subjective: Interval history: The patient felt like his breathing was slightly better this morning, however he woke up nauseous. His nausea has improved with Zofran and it is overall better, however he continues to have some nausea. He denies any abdominal pain associated with this. He has a mild cough without any chest pains. Medications: Reviewed: Yes Vitals/I&O/Wt Last Vital Signs Temp 98.4 F 12/10/19 15:14 Pulse 123 H 12/10/19 15:14 Resp 16 12/10/19 17:17 BP 112/70 12/10/19 15:14 Pulse Ox 93 12/10/19 17:17 12/10/19 12/10/19 12/10/19 06:59 14:59 22:59 Intake Total 200 / 1140 720 / 720 Output Total 500 / 1760 1200 / 1200 Balance -300 / -620 -480 / -480 Physical Exam Narrative: EXAM NARRATIVE: General: Alert and oriented x3, slightly dyspneic at rest. Mouth: No lesions noted Cardiac: Tachycardic rate with regular rhythm Lungs: Decreased air entry in the right base with mild scattered rhonchi diffusely. Occasional wheezes present. No crackles. Abdomen: Soft, nontender Extremities: Trace edema Data : 12/10/19 04:24 12/10/19 04:24 A&P Additional A&P Information 1. Bilateral pneumonia - The patient is currently being treated for pneumonia with Levaquin, imipenem and Bactrim. He was on Levaquin and Zosyn for 9 days without significant improvement, so was changed to the current regimen on 12/08/2019 to help cover for atypicals or resistant strains. The patient is not improving well at this time. The underlying causes could be secondary to his underlying cancer. We will continue with current antibiotics for now, however I may need to change them if the nausea is persistent as it may be a side effect for him. I will continue with IV steroids. I spoke with Dr. Wong who agreed to evaluate the patient and plans to do a bronchoscopy and repeat biopsy. He will try and see if anything can be done to open up the right upper lobe. He plans to do the bronchoscopy on Sunday. 2. Anemia -the patient's hemoglobin is stable. 3. Hypoxia -the patient is currently on 4 L of oxygen. His oxygen continues to desaturate with any levels of exertion. I would like this to improve to some degree prior to discharge. 4. Metastatic lung cancer -the patient's tumor has shrunk with radiation treatments. There are scattered nodules present though. 5. Pain control -the patient's pain seems to be well controlled with Percocet. Continue with this medication and change if needed. 6. Nausea -this improved with Zofran. The patient currently does not have significant nausea. We may need to change antibiotics if they are causing too much nausea as his overall appetite is quite low. Promethazine would be okay if needed. 7. Prophylaxis -the patient is currently on Eliquis for A. fib prophylaxis and this should cover him for DVT prophylaxis as well. Attestations Medical Necessity Statement*: The patient continues need inpatient care as he is treated for the above issues. Likely bronchoscopy on Sunday. Coding Level of Care Code Acute Dining Service Inspector for Padmini Killian
[2019-12-10] MEDS: OLANZapine 5 mg TABLET PO (22:11)
[2019-12-10] MEDS: levofloxacin-dextrose 5 % 750 MG/150 ML PREMIX 100 MG IV (22:11)
[2019-12-10] MEDS: OLANZapine 10 mg TABLET PO (22:11)
[2019-12-10] MEDS: tamsulosin 0.4 mg Capsule PO (22:11)
[2019-12-10] MEDS: zolpidem 5 mg Tablet PO (22:12)
[2019-12-11] VITALS (16 sets, daily range): BP systolic 100–110; BP diastolic 60–71; PULSE 74–116; RESP 15–22; TEMP 36.7–36.8; O2SAT 5–96
[2019-12-11] MEDS: levalbuterol 1.25 mg/3 mL Neb INHALATION ×4 (02:04→21:36)
[2019-12-11 05:11] LABS: Basophils % 0.1 %; Hematocrit 41.6 % (42.0-52.0); Hemoglobin 12.3 g/dL (11.7-16.6); Lymphocytes # 0.5 10^3/uL (0.8-4.8); Lymphocytes % 3.4 %; Mean Corpuscular HGB Conc 29.6 g/dL (30.0-36.0); Mean Corpuscular Hemoglobin 25.4 pg (28.0-34.0); Mean Corpuscular Volume 85.8 fL (80-94); Mean Platelet Volume 9.8 fL (7.4-10.4); Monocytes # 0.3 10^3/uL (0.2-0.9); Neutrophils # 13.32 10^3/uL (1.8-7.7); Nucleated Red Blood Cells % 0 %; Platelet Count 306 10^3/cmm (130-400); Red Blood Count 4.85 10^6/uL (4.1-5.3); White Blood Count 14.3 10^3/uL (4.0-10.0)
[2019-12-11 06:13] LABS: Alanine Aminotransferase 31 U/L (0-41); Albumin Level 3.3 g/dL (3.5-5.2); Alkaline Phosphatase 175 IU/L (40-130); Anion Gap 14.9 (5-19); Aspartate Amino Transferase 20 U/L (0-40); Blood Urea Nitrogen 26 mg/dL (8-23); Calcium 8.9 mg/dL (8.5-10.5); Carbon Dioxide 27 mmol/L (22-29); Chloride 99 mmol/L (98-107); Globulin 3.7 g/dL (1.3-4.6); Glomerular Filtration Rate 111.5 mL/min (90-130); Glucose 203 mg/dL (65-115); NT Pro B Type Natriuretic Pept 377 pg/mL (0-125); Osmolality Calculated 285 mOsm/kg (285-295); Potassium 4.9 mmol/L (3.5-5.1); Sodium 136 mmol/L (136-145); Total Bilirubin 0.2 mg/dL (0.15-1.2)
--- NOTE | 2019-12-11 07:24 | PM.PN ---
Subjective Subjective: Interval history: Patient states that his nausea is improved today. His breathing is slightly better than yesterday. He continues to have significant shortness of breath with getting to the bathroom. Medications: Reviewed: Yes Vitals/I&O/Wt Last Vital Signs Temp 98.2 F 12/11/19 04:00 Pulse 110 H 12/11/19 04:00 Resp 18 12/11/19 04:00 BP 100/60 12/11/19 04:00 Pulse Ox 95 12/11/19 04:00 12/10/19 12/11/19 12/11/19 22:59 06:59 14:59 Intake Total 100 / 920 340 / 1260 Output Total 550 / 1750 1000 / 2750 Balance -450 / -830 -660 / -1490 Weight last 48 hrs Weight 115 lb 6.2 oz Physical Exam Narrative: EXAM NARRATIVE: General: Alert and oriented x3, slightly dyspneic at rest. Mouth: No lesions noted Cardiac: Tachycardic rate with regular rhythm Lungs: Decreased air entry in the right base with mild scattered rhonchi diffusely. Occasional wheezes present. No crackles. Abdomen: Soft, nontender Extremities: Trace edema Data : 12/11/19 04:31 12/11/19 04:31 A&P Additional A&P Information 1. Bilateral pneumonia - The patient is currently being treated for pneumonia with Levaquin, imipenem and Bactrim. He was on Levaquin and Zosyn for 9 days without significant improvement, so was changed to the current regimen on 12/08/2019 to help cover for atypicals or resistant strains. The patient is clinically slightly better, however his white blood cell count is increasing gradually. The underlying causes could be secondary to his underlying cancer. We will continue with current antibiotics for now. May consider adjusting meds again if not improving. I will continue with IV steroids. I spoke with Dr. Wong who agreed to evaluate the patient and plans to do a bronchoscopy and repeat biopsy. He will try and see if anything can be done to open up the right upper lobe. He plans to do the bronchoscopy on Sunday. 2. Anemia -the patient's hemoglobin is stable. 3. Hypoxia -the patient is currently on 4 L of oxygen. His oxygen continues to desaturate with any levels of exertion. I would like this to improve to some degree prior to discharge. 4. Metastatic lung cancer -the patient's tumor has shrunk with radiation treatments. There are scattered nodules present though. 5. Pain control -the patient's pain seems to be well controlled with Percocet. Continue with this medication and change if needed. 6. Nausea -this improved with Zofran. The patient currently does not have significant nausea. We may need to change antibiotics if they are causing too much nausea as his overall appetite is quite low. Promethazine would be okay if needed. 7. Prophylaxis -the patient is currently on Eliquis for A. fib prophylaxis and this should cover him for DVT prophylaxis as well. Attestations Medical Necessity Statement*: The patient continues to need inpatient care as he has significant dyspnea with any exertion. Coding Level of Care Code Acute Lumber Kiln Operator for Padmini Killian
[2019-12-11] MEDS: multivitamin therapeutic Tablet 1 TAB PO (08:15)
[2019-12-11] MEDS: apixaban 5 mg Tablet 2.5 MG PO ×2 (08:16→17:46)
[2019-12-11] MEDS: sertraline 100 mg Tablet 200 MG PO (08:16)
[2019-12-11] MEDS: guaiFENesin 600 mg Tablet PO ×2 (08:16→17:46)
[2019-12-11] MEDS: metoprolol tartrate 25 mg Tablet 12.5 MG PO ×2 (08:16→18:04)
[2019-12-11] MEDS: pantoprazole DR 40 mg Tablet PO (08:17)
[2019-12-11] MEDS: sulfamethoxazole-trimeth DS 160-800 mg Tablet 1 TAB PO ×2 (08:17→17:46)
[2019-12-11] MEDS: digoxin 250 mcg Tablet PO (08:17)
[2019-12-11] MEDS: sennosides-docusate Tablet 1 TAB PO ×2 (08:17→17:46)
[2019-12-11] MEDS: ferrous sulfate EC 325 mg Tablet PO ×2 (08:17→17:46)
--- NOTE | 2019-12-11 09:25 | PC.SOCIAL ---
IMM Updated Page 2 of IMM updated and given to patient. Initialed, dated, and timed and placed back in chart.
[2019-12-11] MEDS: oxyCODONE-APAP 5-325 mg Tablet PO ×2 (13:01→20:19)
[2019-12-11] MEDS: levofloxacin-dextrose 5 % 750 MG/150 ML PREMIX 100 MG IV (20:17)
[2019-12-11] MEDS: OLANZapine 5 mg TABLET PO (20:18)
[2019-12-11] MEDS: OLANZapine 10 mg TABLET PO (20:18)
[2019-12-11] MEDS: tamsulosin 0.4 mg Capsule PO (20:19)
[2019-12-12] VITALS (14 sets, daily range): BP systolic 101–129; BP diastolic 65–82; PULSE 103–123; RESP 16–20; TEMP 36.4–37; O2SAT 91–98
[2019-12-12 04:18] LABS: Basophils % 0.1 %; Hematocrit 41.7 % (42.0-52.0); Lymphocytes # 0.7 10^3/uL (0.8-4.8); Lymphocytes % 4.4 %; Mean Corpuscular HGB Conc 31.2 g/dL (30.0-36.0); Mean Corpuscular Hemoglobin 26.7 pg (28.0-34.0); Mean Corpuscular Volume 85.8 fL (80-94); Mean Platelet Volume 10.1 fL (7.4-10.4); Monocytes # 0.4 10^3/uL (0.2-0.9); Monocytes % 2.7 %; Neutrophils # 13.39 10^3/uL (1.8-7.7); Nucleated Red Blood Cells % 0 %; Platelet Count 329 10^3/cmm (130-400); Red Blood Count 4.86 10^6/uL (4.1-5.3); Red Cell Distribution Width 19.2 % (12.1-15.1); White Blood Count 14.7 10^3/uL (4.0-10.0)
[2019-12-12 04:51] LABS: Alanine Aminotransferase 37 U/L (0-41); Albumin Level 3.4 g/dL (3.5-5.2); Alkaline Phosphatase 178 IU/L (40-130); Anion Gap 12.8 (5-19); Aspartate Amino Transferase 21 U/L (0-40); Blood Urea Nitrogen 26 mg/dL (8-23); Calcium 9.5 mg/dL (8.5-10.5); Carbon Dioxide 29 mmol/L (22-29); Chloride 99 mmol/L (98-107); Globulin 3.8 g/dL (1.3-4.6); Glomerular Filtration Rate 83.4 mL/min (90-130); Glucose 124 mg/dL (65-115); Magnesium 2.4 mg/dL (1.7-2.3); NT Pro B Type Natriuretic Pept 322 pg/mL (0-125); Osmolality Calculated 280 mOsm/kg (285-295); Potassium 4.8 mmol/L (3.5-5.1); Sodium 136 mmol/L (136-145); Total Bilirubin 0.2 mg/dL (0.15-1.2); Total Protein 7.2 g/dL (6.6-8.7)
[2019-12-12] MEDS: levalbuterol 1.25 mg/3 mL Neb INHALATION ×3 (09:00→21:43)
[2019-12-12] MEDS: apixaban 5 mg Tablet 2.5 MG PO ×2 (10:57→17:34)
[2019-12-12] MEDS: digoxin 250 mcg Tablet PO (10:59)
[2019-12-12] MEDS: ferrous sulfate EC 325 mg Tablet PO ×2 (11:00→17:35)
[2019-12-12] MEDS: metoprolol tartrate 25 mg Tablet 12.5 MG PO ×2 (11:01→17:35)
[2019-12-12] MEDS: guaiFENesin 600 mg Tablet PO ×2 (11:01→17:34)
[2019-12-12] MEDS: multivitamin therapeutic Tablet 1 TAB PO (11:05)
[2019-12-12] MEDS: pantoprazole DR 40 mg Tablet PO (11:07)
[2019-12-12] MEDS: sertraline 100 mg Tablet 200 MG PO (11:08)
[2019-12-12] MEDS: sennosides-docusate Tablet 1 TAB PO ×2 (11:08→17:35)
[2019-12-12] MEDS: sulfamethoxazole-trimeth DS 160-800 mg Tablet 1 TAB PO ×2 (11:09→17:34)
--- NOTE | 2019-12-12 12:33 | PC.NURSE ---
Charted by the Nursing students
--- NOTE | 2019-12-12 14:05 | PM.PN ---
Subjective Subjective: Interval history: Patient continues to feel more dyspneic throughout the day. He says that even with light activity he gets very short of breath. The patient has been coughing up some dark-colored phlegm. He denies any pain otherwise. Medications: Reviewed: Yes Vitals/I&O/Wt Last Vital Signs Temp 97.6 F 12/12/19 11:24 Pulse 123 H 12/12/19 11:24 Resp 16 12/12/19 11:24 BP 129/82 12/12/19 11:24 Pulse Ox 92 12/12/19 11:24 12/11/19 12/12/19 12/12/19 22:59 06:59 14:59 Intake Total 820 / 1640 200 / 1840 Output Total 875 / 1650 100 / 1750 200 / 200 Balance -55 / -10 100 / 90 -200 / -200 Weight last 48 hrs Weight 116 lb 1.6 oz Physical Exam Narrative: EXAM NARRATIVE: General: Alert and oriented x3, slightly dyspneic at rest. Mouth: No lesions noted Cardiac: Tachycardic rate with regular rhythm Lungs: Decreased air entry in the right base with mild scattered rhonchi diffusely. Occasional wheezes present. No crackles. Abdomen: Soft, nontender Extremities: Trace edema Data : 12/14/19 04:06 12/14/19 04:06 A&P Additional A&P Information 1. Bilateral pneumonia - The patient is currently being treated for pneumonia with Levaquin, imipenem and Bactrim. He was on Levaquin and Zosyn for 9 days without significant improvement, so was changed to the current regimen on 12/08/2019 to help cover for atypicals or resistant strains. I will switch the imipenem to cefepime today. The underlying causes could be secondary to his underlying cancer. We will continue with current antibiotics for now. I will continue with IV steroids. 2. Anemia -the patient's hemoglobin is stable. 3. Hypoxia -the patient is currently on 5L of oxygen. His oxygen continues to desaturate with any levels of exertion. I would like this to improve to some degree prior to discharge. 4. Metastatic lung cancer -the patient's tumor has shrunk with radiation treatments. There are scattered nodules present though. I am concerned that the cancer is advancing clinically though. I had spoken with Dr. Wong who would plan to do a bronchoscopy this morning, however with the patient's overall clinical status being worsened and his high need for oxygen being present, he is concerned that doing a bronchoscopy could make his clinical status worse. At this time he would be happy to do a bronchoscopy if the patient is able to be discharged home as an outpatient. He is quite concerned that the patient's overall prognosis is poor and that a discussion of hospice may need to be made. I spoke with the patient regarding hospice today as well as options for continuing with treatment and the patient will think about hospice, however for now would prefer to continue to try antibiotic treatments. The patient is aware that his overall prognosis is poor. 5. Pain control -the patient's pain seems to be well controlled with Percocet. Continue with this medication and change if needed. 6. Nausea -this improved with Zofran. The patient currently does not have significant nausea. We may need to change antibiotics if they are causing too much nausea as his overall appetite is quite low. Promethazine would be okay if needed. 7. Prophylaxis -the patient is currently on Eliquis for A. fib prophylaxis and this should cover him for DVT prophylaxis as well. Attestations Medical Necessity Statement*: The patient continues need inpatient care as he is significantly dyspneic. Unfortunately he is showing signs of worsening and not improvement. Continue as above. Coding Level of Care Code Acute Bookbinding Machine Operator for Padmini Killian
[2019-12-12] MEDS: cefepime 2,000 MG in sodium chloride 0.9% (plus) 50 ML 100 MG IV (14:49)
[2019-12-12] MEDS: FUROsemide 10 mg/mL SDV 10mL 60 MG IVP (14:50)
[2019-12-12] MEDS: oxyCODONE-APAP 5-325 mg Tablet PO ×2 (16:37→22:04)
[2019-12-12] MEDS: OLANZapine 10 mg TABLET PO (22:03)
[2019-12-12] MEDS: OLANZapine 5 mg TABLET PO (22:03)
[2019-12-12] MEDS: levofloxacin-dextrose 5 % 750 MG/150 ML PREMIX 100 MG IV (22:03)
[2019-12-12] MEDS: tamsulosin 0.4 mg Capsule PO (22:04)
[2019-12-12] MEDS: zolpidem 5 mg Tablet PO (22:12)
[2019-12-13] VITALS (13 sets, daily range): BP systolic 102–121; BP diastolic 67–78; PULSE 99–123; RESP 17–22; TEMP 36.6–36.9; O2SAT 90–98
[2019-12-13] MEDS: cefepime 2,000 MG in sodium chloride 0.9% (plus) 50 ML 100 MG IV ×2 (03:35→15:57)
[2019-12-13 04:15] LABS: Basophils % 0.1 %; Eosinophils % 0.1 %; Hematocrit 43.6 % (42.0-52.0); Hemoglobin 13.4 g/dL (11.7-16.6); Lymphocytes # 0.8 10^3/uL (0.8-4.8); Lymphocytes % 5.7 %; Mean Corpuscular HGB Conc 30.7 g/dL (30.0-36.0); Mean Corpuscular Hemoglobin 26.1 pg (28.0-34.0); Mean Platelet Volume 9.5 fL (7.4-10.4); Monocytes # 0.6 10^3/uL (0.2-0.9); Monocytes % 4.3 %; Neutrophils # 12.37 10^3/uL (1.8-7.7); Neutrophils % 87.8 %; Nucleated Red Blood Cells % 0 %; Platelet Count 331 10^3/cmm (130-400); Red Blood Count 5.13 10^6/uL (4.1-5.3); Red Cell Distribution Width 19.5 % (12.1-15.1); White Blood Count 14.1 10^3/uL (4.0-10.0)
[2019-12-13 04:46] LABS: Alanine Aminotransferase 41 U/L (0-41); Albumin Level 3.5 g/dL (3.5-5.2); Alkaline Phosphatase 153 IU/L (40-130); Aspartate Amino Transferase 20 U/L (0-40); Blood Urea Nitrogen 35 mg/dL (8-23); Carbon Dioxide 27 mmol/L (22-29); Chloride 95 mmol/L (98-107); Globulin 3.8 g/dL (1.3-4.6); Glomerular Filtration Rate 95.6 mL/min (90-130); Glucose 124 mg/dL (65-115); NT Pro B Type Natriuretic Pept 373 pg/mL (0-125); Osmolality Calculated 277 mOsm/kg (285-295); Sodium 134 mmol/L (136-145); Total Bilirubin 0.2 mg/dL (0.15-1.2); Total Protein 7.3 g/dL (6.6-8.7)
--- NOTE | 2019-12-13 06:29 | PC.NURSE ---
Shift Summary Pt c/o of back pain early in shift, pain was relieved with oral pain meds. Pt was ablet to take medications with no complaints. Pt slept well throughout the night, awaking to use the urinal and to get medications.
[2019-12-13] MEDS: digoxin 250 mcg Tablet PO (08:32)
[2019-12-13] MEDS: multivitamin therapeutic Tablet 1 TAB PO (08:32)
[2019-12-13] MEDS: pantoprazole DR 40 mg Tablet PO (08:32)
[2019-12-13] MEDS: sertraline 100 mg Tablet 200 MG PO (08:32)
[2019-12-13] MEDS: sennosides-docusate Tablet 1 TAB PO ×2 (08:33→19:04)
[2019-12-13] MEDS: ferrous sulfate EC 325 mg Tablet PO ×2 (08:33→19:04)
[2019-12-13] MEDS: sulfamethoxazole-trimeth DS 160-800 mg Tablet 1 TAB PO ×2 (08:33→19:04)
[2019-12-13] MEDS: metoprolol tartrate 25 mg Tablet 12.5 MG PO ×2 (08:33→19:04)
[2019-12-13] MEDS: guaiFENesin 600 mg Tablet PO ×2 (08:33→19:04)
[2019-12-13] MEDS: apixaban 5 mg Tablet 2.5 MG PO ×2 (08:34→19:04)
--- NOTE | 2019-12-13 11:50 | PC.SOCIAL ---
IMM Updated Page 2 of IMM updated and given to patient. Initialed, dated, and timed and placed back in chart.
[2019-12-13] MEDS: oxyCODONE-APAP 5-325 mg Tablet PO ×2 (13:44→23:28)
[2019-12-13] MEDS: tamsulosin 0.4 mg Capsule PO (20:33)
[2019-12-13] MEDS: levofloxacin-dextrose 5 % 750 MG/150 ML PREMIX 100 MG IV (20:33)
[2019-12-13] MEDS: OLANZapine 10 mg TABLET PO (20:33)
[2019-12-13] MEDS: OLANZapine 5 mg TABLET PO (20:33)
--- NOTE | 2019-12-13 22:09 | P.PN_ITS ---
Subjective Subjective: Interval history: He states his been getting generally pretty weak. Having trouble getting very far without getting very tired. Vitals/I&O/Wt Last Vital Signs Temp 98.4 F 12/13/19 19:59 Pulse 122 H 12/13/19 21:09 Resp 18 12/13/19 21:09 BP 121/75 12/13/19 19:59 Pulse Ox 92 12/13/19 21:09 12/13/19 12/13/19 12/13/19 06:59 14:59 22:59 Intake Total 1160 / 1160 240 / 1400 Output Total 300 / 1765 200 / 200 575 / 775 Balance -300 / -1375 960 / 960 -335 / 625 Physical Exam Const: COMMON NORMALS: no acute distress and alert GENERAL APPEARANCE: frail appearing and other (Weak) NUTRITIONAL APPEARANCE: thin ORIENTATION/CONSCIOUSNESS: Yes awake HENMT: COMMON NORMALS: oropharynx normal Neck/C-Spine: COMMON NORMALS: no JVD Resp: COMMON NORMALS: normal respiratory effort AUSCULTATION: diminished lung sounds Cardio: COMMON NORMALS: no JVD, S1 normal heart sound present, S2 normal heart sound present and No murmurs present (Cardio) RATE: tachycardic HEART SOUNDS: S1 normal heart sound present and S2 normal heart sound present GI: COMMON NORMALS: Normal to inspection, nondistended, normoactive bowel sounds present, Soft to palpation and non-tender PALPATION: Yes Soft to palpation Extremity: COMMON NORMALS: no joint enlargement and no pedal edema Neuro: COMMON NORMALS: moves all extremities SENSORIUM/ORIENTATION: Yes alert Skin: COMMON NORMALS: no rashes or lesions noted GENERAL SKIN EXAM: no rashes or lesions noted Data : 12/13/19 04:03 12/13/19 04:03 A&P Assessment and plan (1) Pneumonia: Antibiotic was changed to Levaquin, cefepime. Bactrim. Continue current regimen. White blood cell count appears stabilized at 14. Still diminished air entry. Continue Solu-Medrol 60 mg every [address] chest negative for pulmonary embolism COVID testing was negative Blood culture is negative Nebulized treatments every 6 hours Wean oxygen as tolerated. 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 Sibley -MRI head (09/2019): no evidence of metastatic disease -has port-A-cath in place Has not been tolerating physical therapy, and so this had to be stopped. Reportedly patient does not feel ready for hospice care. Status: Chronic Qualifiers: Laterality: right Qualified Code(s): C34.91 - Malignant neoplasm of unspecified part of right bronchus or lung (3) Anemia: Hold iron supplement while there is suspicion of active infection. -Has known history of chronic normocytic anemia with baseline hemoglobin of around 10 -likely multifactorial given iron deficiency, underlying malignancy, poor nutrition status -Transfuse blood products if needed -Resume iron supplementation Status: Acute Qualifiers: Anemia type: unspecified type Qualified Code(s): D64.9 - Anemia, unspecified Additional A&P Information Atrial fibrillation, paroxysmal. Currently on Eliquis, for anticoagulation. On beta-blockers and digoxin for rate control Probable COPD with acute exacerbation. Nebs, IV steroid, antibiotics as above. Anxiety/depression, continue home meds Full code Eliquis for DVT prophylaxis Attestations Medical Necessity Statement*: Continue admission for assessment of management of respiratory failure secondary to pneumonia with underlying metastatic lung cancer, with easy fatigability, severe dyspnea on exertion. Coding Level of Care Code Acute Weigh Boss for [facility] Fwd Diagnoses Pneumonia J18.9 Laterality: bilateral Lung location: lower lobe of lung Pneumonia type: due to unspecified organism Squamous cell lung cancer C34.91 Laterality: right Anemia D64.9 Anemia type: unspecified type
[2019-12-13] MEDS: zolpidem 5 mg Tablet PO (23:28)
[2019-12-14] VITALS (50 sets, daily range): BP systolic 77–152; BP diastolic 45–107; PULSE 102–145; RESP 17–46; TEMP 36–37.2; O2SAT 87–98
[2019-12-14] MEDS: cefepime 2,000 MG in sodium chloride 0.9% (plus) 50 ML 100 MG IV ×2 (03:54→14:36)
[2019-12-14 04:30] LABS: Basophils % 0.2 %; Eosinophils % 0.1 %; Hematocrit 44.9 % (42.0-52.0); Hemoglobin 13.9 g/dL (11.7-16.6); Lymphocytes % 5.9 %; Mean Corpuscular Hemoglobin 26.6 pg (28.0-34.0); Mean Platelet Volume 10.2 fL (7.4-10.4); Monocytes # 0.9 10^3/uL (0.2-0.9); Monocytes % 5.2 %; Neutrophils % 85.6 %; Nucleated Red Blood Cells % 0 %; Platelet Count 355 10^3/cmm (130-400); Red Blood Count 5.22 10^6/uL (4.1-5.3); Red Cell Distribution Width 19.8 % (12.1-15.1); White Blood Count 17.3 10^3/uL (4.0-10.0)
[2019-12-14 04:50] LABS: Alanine Aminotransferase 46 U/L (0-41); Albumin Level 3.4 g/dL (3.5-5.2); Alkaline Phosphatase 182 IU/L (40-130); Anion Gap 11.1 (5-19); Aspartate Amino Transferase 25 U/L (0-40); Blood Urea Nitrogen 37 mg/dL (8-23); Calcium 8.9 mg/dL (8.5-10.5); Carbon Dioxide 30 mmol/L (22-29); Chloride 98 mmol/L (98-107); Globulin 3.8 g/dL (1.3-4.6); Glomerular Filtration Rate 111.5 mL/min (90-130); Glucose 130 mg/dL (65-115); Osmolality Calculated 277 mOsm/kg (285-295); Potassium 5.1 mmol/L (3.5-5.1); Sodium 134 mmol/L (136-145); Total Bilirubin 0.2 mg/dL (0.15-1.2); Total Protein 7.2 g/dL (6.6-8.7)
[2019-12-14] MEDS: levalbuterol 1.25 mg/3 mL Neb INHALATION ×3 (08:11→20:15)
[2019-12-14] MEDS: sennosides-docusate Tablet 1 TAB PO ×2 (08:25→17:54)
[2019-12-14] MEDS: pantoprazole DR 40 mg Tablet PO (08:25)
[2019-12-14] MEDS: multivitamin therapeutic Tablet 1 TAB PO (08:25)
[2019-12-14] MEDS: sertraline 100 mg Tablet 200 MG PO (08:25)
[2019-12-14] MEDS: sulfamethoxazole-trimeth DS 160-800 mg Tablet 1 TAB PO ×2 (08:25→17:54)
[2019-12-14] MEDS: apixaban 5 mg Tablet 2.5 MG PO ×2 (08:25→17:54)
[2019-12-14] MEDS: guaiFENesin 600 mg Tablet PO ×2 (08:25→17:54)
[2019-12-14] MEDS: metoprolol tartrate 25 mg Tablet 12.5 MG PO ×2 (08:27→17:55)
[2019-12-14] MEDS: digoxin 250 mcg Tablet PO (08:27)
--- NOTE | 2019-12-14 08:59 | ECG_ITS ---
[facility] Test Date: 2019-12-14 Pat Name: Chalino Jeffrey Department: Room: ICU08 Gender: Male Assistant Kitchen Manager: : 1950 Requested By: Tc Spann Order Number: [id number] Vicky MD: Lopez Gutierrez M.D. Measurements Intervals Daisy Rate: 130 P: 75 WY: 168 QRS: -26 QRSD: 70 T: 80 QT: 333 QTc: 490 Interpretive Statements SINUS TACHYCARDIA WITH FREQUENT SUPRAVENTRICULAR PREMATURE COMPLEXES Possible left atrial enlargement BORDERLINE LEFT AXIS DEVIATION [QRS AXIS < -20] POSSIBLE RIGHT VENTRICULAR CONDUCTION DELAY [RSR (QR) IN V1/V2] NONSPECIFIC ST & T-WAVE ABNORMALITY ABNORMAL RHYTHM ECG Compared to ECG 11/30/2019 08:30:28 No significant changes Electronically Signed On 12-15-2019 0:17:24 CDT by Lopez Gutierrez M.D. [email or web address] [id number]
--- NOTE | 2019-12-14 09:00 | PC.NURSE ---
Nurse notified by DRUM SANDER of pt's O2 sat 86% on 4L NC. This nurse turned O2 to 6L-- no improvement in sat. Notified RT Bernie and asked for breathing treatment-- no improvement. Notified Dr. Spann. Orders given to place on heated high-flow. Pt was placed on 80% 40L heated high flow with no improvement. Dr. Spann to room to assess pt. Orders given to transfer to ICU.
--- NOTE | 2019-12-14 09:01 | XRR_ITS ---
PROCEDURE INFORMATION: Exam: XR Chest, 1 View Exam date and time: 12/14/2019 9:01 AM Age: 69 years old Clinical indication: Hyperventilation; Additional info: Hypoxia TECHNIQUE: Imaging protocol: XR of the chest Views: 1 view. COMPARISON: CR XR chest 1V portable [id number] 12/09/2019 8:54 AM FINDINGS: Lungs: There is a right perihilar and upper lobe mass lesion interstitial congestion is present in the right upper lobe adjacent to the mass. There is chronic diffuse interstitial densities in the left mid and lower lobe similar to prior examination. Volume loss is present in the right hemithorax the lower right lung is clear. Pleural space: There is right side apical pleural thickening No pleural effusion. No pneumothorax. Elevated right hemidiaphragm is seen similar to prior Heart/Mediastinum: Unremarkable. No cardiomegaly. Bones/joints: Orthopedic hardware is seen in the cervical spine. A metallic screw is seen in the distal shaft of the left clavicle. A left central line is in place extending into the SVC . XR/XR chest 1V portable [id number] IMPRESSION: 1. Stable right perihilar and upper lobe mass lesion compared to prior. 2. Stable right apical pleural thickening and interstitial congestion. 3. Chronic diffuse interstitial lung densities left mid and lower lobe. 4. Postsurgical hardware cervical spine and left clavicle 5. Left central line is in good position. 5. Elevation right hemidiaphragm, right lung volume loss
--- NOTE | 2019-12-14 09:29 | PC.NURSE ---
Called son, Milad Jeffrey, to update that pt had been moved to ICU. No answer, no voicemail set up to leave a message. Will continue to attempt to notify family.
--- NOTE | 2019-12-14 09:48 | PC.NURSE ---
recieved to icu 8 dyspnic and diaphortic placed on bipap at this time .. placed to monitor shows afib rvr
[2019-12-14 10:07] LABS: Troponin(5th) Baseline 6 ng/L (0-15)
--- NOTE | 2019-12-14 10:14 | PC.NURSE ---
Spoke to sonMilad. Updated on events that led pt to being transferred to ICU, room number, and nurse.
--- NOTE | 2019-12-14 10:21 | P.PN_ITS ---
Subjective Subjective: Interval history: This morning he is feeling somewhat anxious, is having respiratory difficulty. Noted to be tachycardic. Denies chest pain, or Other discomfort, apart from feeling is somewhat more difficult to breathe. He is agreeable for BiPAP if necessary. Vitals/I&O/Wt Last Vital Signs Temp 98.3 F 12/14/19 08:00 Pulse 134 H 12/14/19 09:45 Resp 23 H 12/14/19 09:45 BP 139/98 12/14/19 09:45 Pulse Ox 94 12/14/19 09:45 12/13/19 12/14/19 12/14/19 22:59 06:59 14:59 Intake Total 290 / 1450 240 / 1690 240 / 240 Output Total 575 / 775 300 / 1075 Balance -285 / 675 -60 / 615 240 / 240 Physical Exam Const: COMMON NORMALS: alert GENERAL APPEARANCE: anxious, frail appearing and other (Weak) NUTRITIONAL APPEARANCE: thin ORIENTATION/CONSCIOUSNESS: Yes awake HENMT: COMMON NORMALS: oropharynx normal Neck/C-Spine: COMMON NORMALS: no JVD Resp: COMMON NORMALS: normal respiratory effort AUSCULTATION: diminished lung sounds (But today better air entry.) Cardio: COMMON NORMALS: no JVD, S1 normal heart sound present, S2 normal heart sound present and No murmurs present (Cardio) RATE: tachycardic HEART SOUNDS: S1 normal heart sound present and S2 normal heart sound present GI: COMMON NORMALS: Normal to inspection, nondistended, normoactive bowel sounds present, Soft to palpation and non-tender PALPATION: Yes Soft to palpation Extremity: COMMON NORMALS: no joint enlargement and no pedal edema Neuro: COMMON NORMALS: moves all extremities SENSORIUM/ORIENTATION: Yes alert Skin: COMMON NORMALS: no rashes or lesions noted GENERAL SKIN EXAM: no rashes or lesions noted Data : 12/14/19 04:06 12/14/19 04:06 A&P Assessment and plan (1) Pneumonia: Antibiotic was changed to Levaquin, cefepime. Bactrim. Continue current regimen. WBC up to 17 Air entry sounds better today. Even though white count is up, and he is having some dyspnea, will reduce Solu-Medrol dose to 40 mg as appears he is more anxious today, and wonder if this may be contributing to his tachycardia, causing symptoms of deterioration today. Continue Solu-Medrol 60 mg every 8 hours. Today I do not hear wheezing. This morning he is more dyspneic, tachycardic, with some worsening hypoxia, switched over to high flow cannula, although suspect this may be secondary to his tachypnea, anxiety, tachycardia. Monitor in ICU. He has no chest pain. Tachycardia as below. Add minimal dose Xanax PRN for anxiety. CT chest negative for pulmonary embolism COVID testing was negative Blood culture is negative Nebulized treatments every 6 hours Wean oxygen as tolerated. 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 Sibley -MRI head (09/2019): no evidence of metastatic disease -has port-A-cath in place Has not been tolerating physical therapy, and so this had to be stopped. Reportedly patient does not feel ready for hospice care. Continue to readdress goals of care. Status: Chronic Qualifiers: Laterality: right Qualified Code(s): C34.91 - Malignant neoplasm of unspecified part of right bronchus or lung (3) Anemia: Hold iron supplement while there is suspicion of active infection. -Has known history of chronic normocytic anemia with baseline hemoglobin of around 10 -likely multifactorial given iron deficiency, underlying malignancy, poor nutrition status -Transfuse blood products if needed -Resume iron supplementation Status: Acute Qualifiers: Anemia type: unspecified type Qualified Code(s): D64.9 - Anemia, unspecified Additional A&P Information Atrial fibrillation, paroxysmal. This morning tachycardia, appears fairly regular, but heart rates 130s-140s, difficult to say whether he has some extra P waves there possibly secondary flutter. Currently on Eliquis, for anticoagulation. On beta-blockers and digoxin for rate control. Will check digoxin level. Check Mg. Probable COPD with acute exacerbation. Nebs, IV steroid, antibiotics as above. Anxiety/depression, continue home meds Full code Eliquis for DVT prophylaxis Attestations Medical Necessity Statement*: Continue admission for assessment management of respiratory failure, pneumonia, tachycardia, with underlying squamous cell lung cancer. Coding Level of Care Code Acute Snowblower Mechanic for Chg Fwd Exam Comprehensive Diagnoses Pneumonia J18.9 Laterality: bilateral Lung location: lower lobe of lung Pneumonia type: due to unspecified organism Squamous cell lung cancer C34.91 Laterality: right Anemia D64.9 Anemia type: unspecified type
[2019-12-14] MEDS: ALPRAZolam 0.25 mg Tablet 0.125 MG PO (10:51)
[2019-12-14] MEDS: metoprolol tartrate 1 mg/1 mL SDV 5 mL 2.5 MG IV (10:51)
--- NOTE | 2019-12-14 10:59 | ECG_ITS ---
[facility] Test Date: 2019-12-14 Pat Name: Chalino Jeffrey Department: Room: ICU08 Gender: Male Library Supervisor: : [id number] Requested By: Tc Spann Order Number: [id number] Vicky MD: Lopez Gutierrez M.D. Measurements Intervals Flora Rate: 115 P: 65 WI: 165 QRS: -25 QRSD: 64 T: 71 QT: 342 QTc: 474 Interpretive Statements SINUS TACHYCARDIA POSSIBLE LEFT ATRIAL ENLARGEMENT [-0.1mV P WAVE IN V1/V2] BORDERLINE LEFT AXIS DEVIATION [QRS AXIS < -20] NONSPECIFIC ST & T-WAVE ABNORMALITY ABNORMAL RHYTHM ECG Compared to ECG 12/14/2019 10:15:44 No significant changes Electronically Signed On 12-15-2019 0:35:14 CDT by Lopez Gutierrez M.D. [email or web address]
[2019-12-14 11:48] LABS: Magnesium 2.5 mg/dL (1.7-2.3)
[2019-12-14 12:07] LABS: Troponin 5 2HR Delta 0 ABS# (0-10)
[2019-12-14 12:34] LABS: Digoxin 3.2 ng/mL (0.6-1.2)
--- NOTE | 2019-12-14 12:57 | PC.NURSE ---
scale on bed no working at this time.
[2019-12-14 13:02] LABS: Digoxin 1.8 ng/mL (0.6-1.2)
[2019-12-14] MEDS: oxyCODONE-APAP 5-325 mg Tablet PO ×2 (14:34→21:21)
--- NOTE | 2019-12-14 14:53 | PC.NURSE ---
assisted o.t. to get pt. to side of bed. care done slowly with encouragement to breathe slow and deeply. o2 sat only to 88% and recovered within 5 min. only drank a carton of milk and bottle of ensure for lunch.
[2019-12-14 16:19] LABS: Troponin 5 6HR Delta 0 ng/L (0-12)
--- NOTE | 2019-12-14 17:40 | PC.NURSE ---
1715 recd. post c.c to recover before going to [facility]
--- NOTE | 2019-12-14 17:40 | PC.NURSE ---
1730 no c/o of pain except shoulders. s.r.
[2019-12-14] MEDS: levofloxacin-dextrose 5 % 750 MG/150 ML PREMIX 100 MG IV (21:21)
[2019-12-14] MEDS: tamsulosin 0.4 mg Capsule PO (21:22)
[2019-12-14] MEDS: OLANZapine 10 mg TABLET PO (21:22)
[2019-12-14] MEDS: OLANZapine 5 mg TABLET PO (21:23)
[2019-12-14] MEDS: zolpidem 5 mg Tablet PO (22:17)
[2019-12-15] VITALS (56 sets, daily range): BP systolic 93–128; BP diastolic 63–86; PULSE 101–135; RESP 12–27; TEMP 36.5–37.4; O2SAT 88–98
[2019-12-15] MEDS: levalbuterol 1.25 mg/3 mL Neb INHALATION ×4 (02:41→20:27)
[2019-12-15 03:30] LABS: Basophils # 0.1 10^3/uL (0.0-0.1); Basophils % 0.4 %; Eosinophils % 0.1 %; Hematocrit 41.1 % (42.0-52.0); Hemoglobin 12.5 g/dL (11.7-16.6); Lymphocytes # 0.8 10^3/uL (0.8-4.8); Lymphocytes % 5.4 %; Mean Corpuscular HGB Conc 30.4 g/dL (30.0-36.0); Mean Corpuscular Hemoglobin 25.9 pg (28.0-34.0); Mean Corpuscular Volume 85.3 fL (80-94); Mean Platelet Volume 9.7 fL (7.4-10.4); Monocytes # 0.7 10^3/uL (0.2-0.9); Monocytes % 4.5 %; Neutrophils # 13.03 10^3/uL (1.8-7.7); Neutrophils % 85.6 %; Nucleated Red Blood Cells % 0 %; Platelet Count 281 10^3/cmm (130-400); Red Blood Count 4.82 10^6/uL (4.1-5.3); Red Cell Distribution Width 19.2 % (12.1-15.1); White Blood Count 15.2 10^3/uL (4.0-10.0)
[2019-12-15 03:45] LABS: Alanine Aminotransferase 33 U/L (0-41); Albumin Level 3.2 g/dL (3.5-5.2); Alkaline Phosphatase 156 IU/L (40-130); Anion Gap 13.7 (5-19); Aspartate Amino Transferase 17 U/L (0-40); Blood Urea Nitrogen 36 mg/dL (8-23); Calcium 8.9 mg/dL (8.5-10.5); Carbon Dioxide 28 mmol/L (22-29); Chloride 97 mmol/L (98-107); Globulin 3.1 g/dL (1.3-4.6); Glomerular Filtration Rate 83.4 mL/min (90-130); Glucose 116 mg/dL (65-115); Osmolality Calculated 276 mOsm/kg (285-295); Potassium 4.7 mmol/L (3.5-5.1); Sodium 134 mmol/L (136-145); Total Bilirubin 0.2 mg/dL (0.15-1.2); Total Protein 6.3 g/dL (6.6-8.7)
[2019-12-15] MEDS: cefepime 2,000 MG in sodium chloride 0.9% (plus) 50 ML 100 MG IV ×2 (04:04→15:14)
--- NOTE | 2019-12-15 07:53 | PC.NURSE ---
recd. resting quietly. awakened easily for breakfast. encouraged to eat. sat. down to 88% on 40%
[2019-12-15] MEDS: metoprolol tartrate 25 mg Tablet 12.5 MG PO ×2 (08:38→18:05)
[2019-12-15] MEDS: sulfamethoxazole-trimeth DS 160-800 mg Tablet 1 TAB PO ×2 (08:38→18:05)
[2019-12-15] MEDS: pantoprazole DR 40 mg Tablet PO (08:38)
[2019-12-15] MEDS: guaiFENesin 600 mg Tablet PO ×2 (08:38→18:05)
[2019-12-15] MEDS: sertraline 100 mg Tablet 200 MG PO (08:38)
[2019-12-15] MEDS: sennosides-docusate Tablet 1 TAB PO ×2 (08:38→18:05)
[2019-12-15] MEDS: multivitamin therapeutic Tablet 1 TAB PO (08:38)
[2019-12-15] MEDS: apixaban 5 mg Tablet 2.5 MG PO ×2 (08:39→18:05)
[2019-12-15 09:18] LABS: Digoxin 1.7 ng/mL (0.6-1.2)
[2019-12-15] MEDS: ALPRAZolam 0.25 mg Tablet 0.125 MG PO ×2 (11:18→22:55)
--- NOTE | 2019-12-15 11:23 | PC.NURSE ---
c/o increased feeling of shortness of breath. o2 sat 94. 45%fio2 on hi-aiyana. xanax given in attempt to decrease feeling of shortness of breath.
--- NOTE | 2019-12-15 11:43 | DCPLANNER ---
Pg 2 of IM updated and reviewed with pt. No questions, copy provided.
--- NOTE | 2019-12-15 11:53 | CT_ITS ---
WS: [id number] CT CHEST ANGIOGRAPHY WITH REFORMATS HISTORY: Dyspnea, Lung cancer TECHNIQUE: Contiguous axial images are obtained through the chest during arterial injection of intrav enous contrast. Images are reconstructed to evaluate the pulmonary arteries. MIP imaging also reviewe d. All CT scans at [facility] use at least one of these dose optimization techniques: aut omated exposure control; mA and/or kV adjustment per patient size (includes targeted exams where dose is matched to clinical indication); or iterative reconstruction. CONTRAST: Omnipaque 350; 95 mL IV. DLP: 488.67 mGy.cm COMPARISON: 11/30/2019 Excellent opacification of the pulmonary arteries. No filling defects or pulmonary embolism. Normal s ize pulmonary artery. Atherosclerosis of the thoracic aorta with no aneurysm. LEFT subclavian Port-A-Cath with tip in the distal SVC. There is continued decrease in size of the de nse solid consolidation in the RIGHT upper lobe. Improved aeration in the RIGHT upper lung field with the area of consolidation now measuring approximately 7.0 x 3.7 cm. There is continued encasement of the central bronchial structures and RIGHT upper lobe bronchus. There is extensive airspace disease and scattered consolidation throughout the LEFT lung which has actually progressed since 11/30/2019. S uperimposed interstitial pneumonitis and bronchitis should be considered. This involves the LEFT uppe r LEFT lower lobes. LEFT paratracheal lymph node measures 1.2 cm and is unchanged. LEFT hilar adenopa thy measures up to 1.0 cm. Mildly enlarged cardiac chambers. Prior cholecystectomy. Visualized liver is negative. Mild LEFT adre nal hyperplasia. Mild diffuse esophageal thickening. CT/CT angio chest PE protcl [id number] IMPRESSION: 1. No pulmonary embolism. 2. Continued slow improvement of the dense neoplastic consolidation in the RIG HT upper lobe with volume loss and extension to encase the RIGHT hilar structur es. 3. Diffuse worsening of opacifications throughout the LEFT lung consistent wit h superimposed pneumonia. 4. Mild diffuse esophageal mucosal thickening is similar to the prior study.
--- NOTE | 2019-12-15 11:54 | PM.PN ---
Subjective Subjective: Interval history: The patient continues to feel dyspneic and with any ambulation gets significantly short of breath. The patient is currently on 45% oxygen on high flow nasal cannula. The patient denies any chest pains currently and denies any sputum production. His pain is currently well controlled. He denies any abdominal pain. Medications: Reviewed: Yes Vitals/I&O/Wt Last Vital Signs Temp 97.7 F 12/15/19 09:30 Pulse 117 H 12/15/19 11:00 Resp 19 H 12/15/19 11:00 BP 116/72 12/15/19 11:00 Pulse Ox 95 12/15/19 11:00 12/14/19 12/15/19 12/15/19 22:59 06:59 14:59 Intake Total 710 / 1460 320 / 1780 360 / 360 Output Total 475 / 675 200 / 875 Balance 235 / 785 120 / 905 360 / 360 Weight last 48 hrs Weight 116 lb 4.8 oz Weight 116 lb 4.8 oz Weight 116 lb 1.6 oz Physical Exam Narrative: EXAM NARRATIVE: General: Alert and oriented x3, slightly dyspneic at rest. Mouth: Signs of oral thrush present. Cardiac: Tachycardic rate with regular rhythm Lungs: Decreased air entry in the right base with scattered bilateral wheezes. Abdomen: Soft, nontender Extremities: Trace edema Data : 12/15/19 03:05 12/15/19 03:05 A&P Additional A&P Information 1. Bilateral pneumonia - The patient is currently being treated for pneumonia with Levaquin, cefepime and Bactrim. He was on Levaquin and Zosyn for 9 days without significant improvement, so was changed to imipenem with Bactrim and Levaquin on 12/08/2019 to help cover for atypicals or resistant strains. The imipenem has been switched to cefepime on 12/12/2019. The underlying cause is certainly secondary to postobstructive pneumonia from his cancer. Continue with current antibiotics. 2. Anemia -the patient's hemoglobin is stable. 3. Hypoxia -the patient is currently on 45% oxygen via high flow nasal cannula. His oxygen continues to desaturate with any levels of exertion. I will set up a CT for PE protocol to rule out a new PE and check for other underlying reasons for his dyspnea. 4. Metastatic lung cancer -the patient's tumor has shrunk with radiation treatments. There are scattered nodules present though. I am concerned that the cancer is advancing clinically though. I had spoken with Dr. Wong who would plan to do a bronchoscopy this morning, however with the patient's overall clinical status being worsened and his high need for oxygen being present, he is concerned that doing a bronchoscopy could make his clinical status worse. At this time he would be happy to do a bronchoscopy if the patient is able to be discharged home as an outpatient. He is quite concerned that the patient's overall prognosis is poor and that a discussion of hospice may need to be made. I spoke with the patient regarding hospice on 12/12/2019 as well as options for continuing with treatment and the patient will think about hospice, however for now would prefer to continue to try antibiotic treatments. The patient is aware that his overall prognosis is poor. 5. Pain control -the patient's pain seems to be well controlled with Percocet. Continue with this medication and change if needed. 6. Nausea -this improved with Zofran. The patient currently does not have significant nausea. We may need to change antibiotics if they are causing too much nausea as his overall appetite is quite low. Promethazine would be okay if needed. 7. Thrush -I will prescribe nystatin to swish and swallow for treatment. 8. Elevated digoxin level -I will hold the digoxin today and recheck level in the morning. If level is okay, we will plan to restart at 125 mcg daily. 9. Prophylaxis -the patient is currently on Eliquis for A. fib prophylaxis and this should cover him for DVT prophylaxis as well. Attestations Medical Necessity Statement*: The patient will be here for greater than 2 midnights and continues need inpatient ICU care secondary to significant dyspnea and worsening oxygen levels. Critical Care Time: Critical Care Time (min): 30 Coding Level of Care Code Acute Sheetmetal Patternmaker for Padmini Killian
[2019-12-15] MEDS: oxyCODONE-APAP 5-325 mg Tablet 1 TAB PO (12:50)
--- NOTE | 2019-12-15 12:51 | PC.NURSE ---
THERAPY HERE. PT. DIDNT WANT TO GET OUT OF BED BUT WAS WILLING TO DO EXERCISES IN BED. ONLY KEPT ENSURE FOR LUNCH
[2019-12-15] MEDS: nystatin 100,000 unit/mL UDC 5 mL 500000 UNIT PO ×2 (14:27→18:04)
[2019-12-15] MEDS: iohexol 350 mg/mL 100 mL Btl IV (14:57)
--- NOTE | 2019-12-15 15:09 | PC.NURSE ---
natividad from ct. tol. shelton.
[2019-12-15] MEDS: levofloxacin-dextrose 5 % 750 MG/150 ML PREMIX 100 MG IV (20:11)
[2019-12-15] MEDS: OLANZapine 5 mg TABLET PO (20:12)
[2019-12-15] MEDS: OLANZapine 10 mg TABLET PO (20:12)
[2019-12-15] MEDS: tamsulosin 0.4 mg Capsule PO (20:12)
[2019-12-15] MEDS: zolpidem 5 mg Tablet PO (22:55)
[2019-12-16] VITALS (58 sets, daily range): BP systolic 92–132; BP diastolic 62–88; PULSE 102–134; RESP 9–39; TEMP 36.7–37.5; O2SAT 90–97
[2019-12-16] MEDS: cefepime 2,000 MG in sodium chloride 0.9% (plus) 50 ML 100 MG IV ×2 (02:32→14:50)
[2019-12-16] MEDS: levalbuterol 1.25 mg/3 mL Neb INHALATION ×4 (03:03→20:42)
[2019-12-16 04:29] LABS: Basophils % 0.1 %; Eosinophils % 0.2 %; Hematocrit 39.3 % (42.0-52.0); Lymphocytes # 0.9 10^3/uL (0.8-4.8); Lymphocytes % 5.7 %; Mean Corpuscular HGB Conc 30.5 g/dL (30.0-36.0); Mean Corpuscular Hemoglobin 26.5 pg (28.0-34.0); Mean Corpuscular Volume 86.8 fL (80-94); Mean Platelet Volume 10.2 fL (7.4-10.4); Monocytes # 0.6 10^3/uL (0.2-0.9); Neutrophils # 12.73 10^3/uL (1.8-7.7); Neutrophils % 85.5 %; Nucleated Red Blood Cells % 0 %; Platelet Count 252 10^3/cmm (130-400); Red Blood Count 4.53 10^6/uL (4.1-5.3); Red Cell Distribution Width 19.4 % (12.1-15.1); White Blood Count 14.9 10^3/uL (4.0-10.0)
[2019-12-16 04:55] LABS: Alanine Aminotransferase 30 U/L (0-41); Albumin Level 3.3 g/dL (3.5-5.2); Alkaline Phosphatase 148 IU/L (40-130); Anion Gap 17.8 (5-19); Aspartate Amino Transferase 16 U/L (0-40); Blood Urea Nitrogen 36 mg/dL (8-23); Calcium 8.5 mg/dL (8.5-10.5); Carbon Dioxide 23 mmol/L (22-29); Chloride 99 mmol/L (98-107); Glomerular Filtration Rate 111.5 mL/min (90-130); Glucose 121 mg/dL (65-115); Osmolality Calculated 279 mOsm/kg (285-295); Potassium 4.8 mmol/L (3.5-5.1); Sodium 135 mmol/L (136-145); Total Bilirubin 0.2 mg/dL (0.15-1.2); Total Protein 6.3 g/dL (6.6-8.7)
[2019-12-16 05:06] LABS: Digoxin 1.3 ng/mL (0.6-1.2)
[2019-12-16 05:09] LABS: NT Pro B Type Natriuretic Pept 308 pg/mL (0-125)
--- NOTE | 2019-12-16 08:10 | P.PN_ITS ---
Subjective Subjective: Interval history: The patient states that his breathing overall is better. He feels like the high flow nasal oxygen is improved. The patient feels like his sore throat has also improved. He denies any chest pains or abdominal pain. Medications: Reviewed: Yes Vitals/I&O/Wt Last Vital Signs Temp 99.0 F 12/16/19 04:00 Pulse 118 H 12/16/19 07:00 Resp 19 H 12/16/19 07:00 BP 107/68 12/16/19 07:00 Pulse Ox 94 12/16/19 07:00 12/15/19 12/16/19 12/16/19 22:59 06:59 14:59 Intake Total 900 / 1260 110 / 1370 Output Total 275 / 525 150 / 675 Balance 625 / 735 -40 / 695 Weight last 48 hrs Weight 116 lb 4.8 oz Weight 116 lb 4.8 oz Weight 116 lb 1.6 oz Physical Exam Narrative: EXAM NARRATIVE: General: Alert and oriented x3, slightly dyspneic at rest. Mouth: Signs of oral thrush present but improving. Cardiac: Tachycardic rate with regular rhythm Lungs: Decreased air entry in the right base with scattered bilateral wheezes and rhonchi in the left lower lungs. Abdomen: Soft, nontender Extremities: Trace edema Data : 12/16/19 03:55 12/16/19 03:55 A&P Additional A&P Information 1. Bilateral pneumonia - The patient is currently being treated for pneumonia with Levaquin, cefepime and Bactrim. He was on Levaquin and Zosyn for 9 days without significant improvement, so was changed to imipenem with Bactrim and Levaquin on 12/08/2019 to help cover for atypicals or resistant strains. The imipenem has been switched to cefepime on 12/12/2019. The underlying cause is certainly secondary to postobstructive pneumonia from his cancer. Continue with current antibiotics. 2. Anemia -the patient's hemoglobin is stable. 3. Hypoxia -the patient is currently on 35% oxygen via high flow nasal cannula and his oxygen levels are in the upper 80s. His oxygen continues to desaturate with any levels of exertion. CT scan did not show any signs of pulmonary embolism, however continues to show signs of pneumonia as well as advancing cancer. We will try using the flutter valve to see if this helps to clear some of the mucus from his lungs. 4. Metastatic lung cancer -the patient's tumor has shrunk with radiation treatments. There are scattered nodules present though. I am concerned that the cancer is advancing clinically though. I had spoken with Dr. Wong who would plan to do a bronchoscopy this morning, however with the patient's overall clini ivanna status being worsened and his high need for oxygen being present, he is concerned that doing a bronchoscopy could make his clinical status worse. At this time he would be happy to do a bronchoscopy if the patient is able to be discharged home as an outpatient. He is quite concerned that the patient's overall prognosis is poor and that a discussion of hospice may need to be made. I spoke with the patient regarding hospice on 12/12/2019 as well as options for continuing with treatment and the patient will think about hospice, however for now would prefer to continue to try antibiotic treatments. The patient is aware that his overall prognosis is poor. 5. Pain control -the patient's pain seems to be well controlled with Percocet. Continue with this medication and change if needed. 6. Nausea -improved at this time. The patient is able to tolerate food by mouth well. 7. Thrush -continue with nystatin to swish and swallow for treatment. 8. Elevated digoxin level -digoxin level still elevated. We will consider restarting this tomorrow. Recheck levels then. 9. Prophylaxis -the patient is currently on Eliquis for A. fib prophylaxis and this should cover him for DVT prophylaxis as well. Attestations Medical Necessity Statement*: The patient continues to need inpatient care in the ICU as he is needing high levels of oxygen. Time Spent in Patient Care: 16 - 35 minutes Coding Level of Care Code Acute Catering Truck Operator for Padmini Killian
[2019-12-16] MEDS: apixaban 5 mg Tablet 2.5 MG PO ×2 (08:41→18:26)
[2019-12-16] MEDS: metoprolol tartrate 25 mg Tablet 12.5 MG PO ×2 (08:42→18:27)
[2019-12-16] MEDS: guaiFENesin 600 mg Tablet PO ×2 (08:42→18:27)
[2019-12-16] MEDS: multivitamin therapeutic Tablet 1 TAB PO (08:43)
[2019-12-16] MEDS: sertraline 100 mg Tablet 200 MG PO (08:44)
[2019-12-16] MEDS: nystatin 100,000 unit/mL UDC 5 mL 500000 UNIT PO ×4 (08:44→20:40)
[2019-12-16] MEDS: pantoprazole DR 40 mg Tablet PO (08:44)
[2019-12-16] MEDS: sulfamethoxazole-trimeth DS 160-800 mg Tablet 1 TAB PO ×2 (08:45→18:28)
[2019-12-16] MEDS: sennosides-docusate Tablet 1 TAB PO ×2 (08:46→18:28)
--- NOTE | 2019-12-16 10:52 | PC.NURSE ---
Offered repositioning to the patient, patient declined.
[2019-12-16] MEDS: oxyCODONE-APAP 5-325 mg Tablet 1 TAB PO (15:09)
--- NOTE | 2019-12-16 15:10 | PC.NURSE ---
patient report headache. rated as a 6/10. Provided prn oxycodone for pain relief.
--- NOTE | 2019-12-16 18:32 | PC.NURSE ---
offered patient oral care and hygeine, patient declined.
[2019-12-16] MEDS: tamsulosin 0.4 mg Capsule PO (20:40)
[2019-12-16] MEDS: OLANZapine 5 mg TABLET PO (20:41)
[2019-12-16] MEDS: OLANZapine 10 mg TABLET PO (20:41)
[2019-12-16] MEDS: levofloxacin-dextrose 5 % 750 MG/150 ML PREMIX 100 MG IV (20:51)
[2019-12-16] MEDS: ALPRAZolam 0.25 mg Tablet 0.125 MG PO (22:09)
[2019-12-16] MEDS: zolpidem 5 mg Tablet PO (22:09)
--- NOTE | 2019-12-16 23:42 | PC.NURSE ---
Answers questions appropriately, regular unlabored RR High Flow NC, roll dough divider Strong and equal, radial pulses +3 and equal, supine 45 degrees, turns self, call light within reach
[2019-12-17] VITALS (32 sets, daily range): BP systolic 83–140; BP diastolic 51–86; PULSE 93–130; RESP 14–25; TEMP 36.6–37.6; O2SAT 92–97; BMI 16.9
[2019-12-17] MEDS: levalbuterol 1.25 mg/3 mL Neb INHALATION ×4 (02:21→21:22)
[2019-12-17] MEDS: cefepime 2,000 MG in sodium chloride 0.9% (plus) 50 ML 100 MG IV ×2 (02:46→15:37)
[2019-12-17 04:09] LABS: Basophils % 0.3 %; Eosinophils % 0.1 %; Hematocrit 36.9 % (42.0-52.0); Hemoglobin 11.3 g/dL (11.7-16.6); Lymphocytes # 0.8 10^3/uL (0.8-4.8); Lymphocytes % 5.6 %; Mean Corpuscular HGB Conc 30.6 g/dL (30.0-36.0); Mean Corpuscular Hemoglobin 26.3 pg (28.0-34.0); Mean Corpuscular Volume 85.8 fL (80-94); Mean Platelet Volume 10.3 fL (7.4-10.4); Monocytes # 0.6 10^3/uL (0.2-0.9); Monocytes % 4.4 %; Neutrophils # 11.91 10^3/uL (1.8-7.7); Neutrophils % 85.1 %; Nucleated Red Blood Cells % 0 %; Platelet Count 230 10^3/cmm (130-400); Red Cell Distribution Width 19.6 % (12.1-15.1)
[2019-12-17 04:30] LABS: Digoxin 0.7 ng/mL (0.6-1.2)
[2019-12-17 04:45] LABS: Alanine Aminotransferase 32 U/L (0-41); Albumin Level 3.3 g/dL (3.5-5.2); Alkaline Phosphatase 153 IU/L (40-130); Anion Gap 19.6 (5-19); Aspartate Amino Transferase 22 U/L (0-40); Blood Urea Nitrogen 32 mg/dL (8-23); Calcium 8.5 mg/dL (8.5-10.5); Carbon Dioxide 22 mmol/L (22-29); Chloride 98 mmol/L (98-107); Globulin 2.8 g/dL (1.3-4.6); Glomerular Filtration Rate 111.5 mL/min (90-130); Glucose 141 mg/dL (65-115); NT Pro B Type Natriuretic Pept 305 pg/mL (0-125); Osmolality Calculated 280 mOsm/kg (285-295); Phosphorus 2.8 mg/dL (2.5-4.5); Potassium 4.6 mmol/L (3.5-5.1); Sodium 135 mmol/L (136-145); Total Bilirubin 0.2 mg/dL (0.15-1.2); Total Protein 6.1 g/dL (6.6-8.7)
--- NOTE | 2019-12-17 08:50 | P.PN_ITS ---
Subjective Subjective: Interval history: The patient is feeling short of breath this morning. He is coughing up some phlegm. He denies any chest pains. He does feel short of breath. Medications: Reviewed: Yes Vitals/I&O/Wt Last Vital Signs Temp 98.2 F 12/16/19 22:00 Pulse 115 H 12/17/19 07:48 Resp 22 H 12/17/19 07:48 BP 106/67 12/17/19 06:35 Pulse Ox 96 12/17/19 07:48 12/16/19 12/17/19 12/17/19 22:59 06:59 14:59 Intake Total 770 / 1250 200 / 1450 360 / 360 Output Total 200 / 600 600 / 1200 275 / 275 Balance 570 / 650 -400 / 250 85 / 85 Weight last 48 hrs Weight 116 lb 4.8 oz Physical Exam Narrative: EXAM NARRATIVE: General: Alert and oriented x3, slightly dyspneic at rest. Mouth: Signs of oral thrush present but improving. Cardiac: Tachycardic rate with regular rhythm Lungs: Decreased air entry in the right base with scattered bilateral wheezes and rhonchi in the left lower lungs. Abdomen: Soft, nontender Extremities: Trace edema Data : 12/18/19 03:45 12/18/19 03:45 A&P Additional A&P Information 1. Bilateral pneumonia - The patient is currently being treated for pneumonia with Levaquin, cefepime and Bactrim. He was on Levaquin and Zosyn for 9 days without significant improvement, so was changed to imipenem with Bactrim and Levaquin on 12/08/2019 to help cover for atypicals or resistant strains. The imipenem has been switched to cefepime on 12/12/2019. The underlying cause is certainly secondary to postobstructive pneumonia from his cancer. New sputum sample was sent down and culture is pending. We will look for possibility of other underlying resistant infection. Continue with current antibiotics. 2. Anemia -the patient's hemoglobin is stable. 3. Hypoxia -the patient is currently on 40% oxygen via high flow nasal cannula and his oxygen levels are in the upper 80s. His oxygen continues to desaturate with any levels of exertion. CT scan did not show any signs of pulmonary embolism, however continues to show signs of pneumonia as well as advancing cancer. We will try using the flutter valve to see if this helps to clear some of the mucus from his lungs. 4. Metastatic lung cancer -the patient's tumor has shrunk with radiation treatments. There are scattered nodules present though. I am concerned that the cancer is advancing clinically though. I had spoken with Dr. Wong who would plan to do a bronchoscopy this morning, however with the patient's overall clinical status being worsened and his high need for oxygen being present, he is concerned that doing a bronchoscopy could make his clinical status worse. At this time he would be happy to do a bronchoscopy if the patient is able to be discharged home as an outpatient. He is quite concerned that the patient's overall prognosis is poor and that a discussion of hospice may need to be made. I spoke with the patient regarding hospice on 12/12/2019 as well as options for continuing with treatment and the patient will think about hospice, however for now would prefer to continue to try antibiotic treatments. The patient is aware that his overall prognosis is poor. 5. Pain control -the patient's pain seems to be well controlled with Percocet. Continue with this medication and change if needed. 6. Nausea -improved at this time. The patient is able to tolerate food by mouth well. 7. Thrush -continue with nystatin to swish and swallow for treatment. 8. Elevated digoxin level -digoxin level down to normal range today. We will restart digoxin as his heart rate is in the 130s. We will restart at 0.125 mg daily. This is half the dose that he was on previously. 9. Prophylaxis -the patient is currently on Eliquis for A. fib prophylaxis and this should cover him for DVT prophylaxis as well. Attestations Medical Necessity Statement*: The patient continues need ICU care secondary to the need for significant levels of oxygen. Time Spent in Patient Care: 16 - 35 minutes Coding Level of Care Code Acute Insecticide Expert for Padmini Killian
[2019-12-17] MEDS: nystatin 100,000 unit/mL UDC 5 mL 500000 UNIT PO ×4 (09:04→21:09)
[2019-12-17] MEDS: sennosides-docusate Tablet 1 TAB PO ×2 (09:05→18:03)
[2019-12-17] MEDS: sulfamethoxazole-trimeth DS 160-800 mg Tablet 1 TAB PO ×2 (09:06→18:03)
[2019-12-17] MEDS: metoprolol tartrate 25 mg Tablet 12.5 MG PO ×2 (09:06→18:03)
[2019-12-17] MEDS: apixaban 5 mg Tablet 2.5 MG PO ×2 (09:07→18:02)
[2019-12-17] MEDS: multivitamin therapeutic Tablet 1 TAB PO (09:07)
[2019-12-17] MEDS: guaiFENesin 600 mg Tablet PO ×2 (09:08→18:03)
[2019-12-17] MEDS: pantoprazole DR 40 mg Tablet PO (09:08)
[2019-12-17] MEDS: digoxin 125 mcg Tablet PO (09:08)
[2019-12-17] MEDS: sertraline 100 mg Tablet 200 MG PO (09:09)
--- NOTE | 2019-12-17 11:19 | PC.NURSE ---
ADL'S DONE WITH OT. LINENS CHANGED. TOLERATED WELL. OT REPORTS THAT SAT DROPPED TO 84% DURING THERAPY. SITTING UP COMFORTABLY AFTERWARDS.
--- NOTE | 2019-12-17 14:08 | PC.NURSE ---
Nurse Offered patient oral care, bed bath, and change of linens. Patient declines all at this time. He had a Bed bath provided by PT earlier today
--- NOTE | 2019-12-17 14:43 | PC.SOCIAL ---
IMM Updated Page 2 of IMM updated and given to patient. He verbalizes understanding. Initialed, dated, and timed and placed back in chart.
[2019-12-17] MEDS: OLANZapine 10 mg TABLET PO (21:07)
[2019-12-17] MEDS: OLANZapine 5 mg TABLET PO (21:07)
[2019-12-17] MEDS: tamsulosin 0.4 mg Capsule PO (21:07)
[2019-12-17] MEDS: oxyCODONE-APAP 5-325 mg Tablet 1 TAB PO (21:08)
[2019-12-17] MEDS: levofloxacin-dextrose 5 % 750 MG/150 ML PREMIX 100 MG IV (21:09)
[2019-12-17] MEDS: ALPRAZolam 0.25 mg Tablet 0.125 MG PO (23:26)
[2019-12-17] MEDS: zolpidem 5 mg Tablet PO (23:26)
[2019-12-18] VITALS (51 sets, daily range): BP systolic 91–140; BP diastolic 62–96; PULSE 100–137; RESP 4–35; TEMP 36.5–37.4; O2SAT 89–98
[2019-12-18] MEDS: levalbuterol 1.25 mg/3 mL Neb INHALATION ×4 (02:53→21:48)
[2019-12-18] MEDS: cefepime 2,000 MG in sodium chloride 0.9% (plus) 50 ML 100 MG IV ×2 (03:17→15:17)
[2019-12-18 04:14] LABS: Basophils % 0.2 %; Eosinophils % 0.1 %; Hematocrit 39.1 % (42.0-52.0); Hemoglobin 11.7 g/dL (11.7-16.6); Lymphocytes # 0.8 10^3/uL (0.8-4.8); Mean Corpuscular HGB Conc 29.9 g/dL (30.0-36.0); Mean Corpuscular Hemoglobin 26.1 pg (28.0-34.0); Mean Corpuscular Volume 87.3 fL (80-94); Mean Platelet Volume 10.2 fL (7.4-10.4); Monocytes # 0.6 10^3/uL (0.2-0.9); Monocytes % 4.3 %; Neutrophils # 11.42 10^3/uL (1.8-7.7); Neutrophils % 82.7 %; Nucleated Red Blood Cells % 0 %; Platelet Count 232 10^3/cmm (130-400); Red Blood Count 4.48 10^6/uL (4.1-5.3); Red Cell Distribution Width 19.7 % (12.1-15.1); White Blood Count 13.8 10^3/uL (4.0-10.0)
[2019-12-18 04:58] LABS: Alanine Aminotransferase 35 U/L (0-41); Albumin Level 3.4 g/dL (3.5-5.2); Alkaline Phosphatase 167 IU/L (40-130); Anion Gap 14.3 (5-19); Aspartate Amino Transferase 21 U/L (0-40); Blood Urea Nitrogen 30 mg/dL (8-23); CRP High Sensitivity Cardiac < 0.150 mg/dL (0.0-0.3); Calcium 8.5 mg/dL (8.5-10.5); Carbon Dioxide 28 mmol/L (22-29); Chloride 98 mmol/L (98-107); Glomerular Filtration Rate 133.2 mL/min (90-130); Glucose 130 mg/dL (65-115); NT Pro B Type Natriuretic Pept 347 pg/mL (0-125); Osmolality Calculated 281 mOsm/kg (285-295); Potassium 4.3 mmol/L (3.5-5.1); Sodium 136 mmol/L (136-145); Total Bilirubin 0.2 mg/dL (0.15-1.2); Total Protein 6.4 g/dL (6.6-8.7)
[2019-12-18 05:49] LABS: Slide Review Slide Review Perform
[2019-12-18] MEDS: guaiFENesin 600 mg Tablet PO ×2 (08:43→17:59)
[2019-12-18] MEDS: pantoprazole DR 40 mg Tablet PO (08:43)
[2019-12-18] MEDS: metoprolol tartrate 25 mg Tablet 12.5 MG PO ×2 (08:44→18:00)
[2019-12-18] MEDS: multivitamin therapeutic Tablet 1 TAB PO (08:45)
[2019-12-18] MEDS: apixaban 5 mg Tablet 2.5 MG PO ×2 (08:45→18:00)
[2019-12-18] MEDS: sertraline 100 mg Tablet 200 MG PO (08:46)
[2019-12-18] MEDS: sennosides-docusate Tablet 1 TAB PO ×2 (08:46→18:00)
[2019-12-18] MEDS: sulfamethoxazole-trimeth DS 160-800 mg Tablet 1 TAB PO ×2 (08:46→18:00)
[2019-12-18] MEDS: digoxin 125 mcg Tablet PO (08:47)
[2019-12-18] MEDS: nystatin 100,000 unit/mL UDC 5 mL 500000 UNIT PO ×4 (08:47→21:07)
--- NOTE | 2019-12-18 08:49 | P.PN_ITS ---
Subjective Subjective: Interval history: The patient is breathing slightly better today. He has been able to cough up some phlegm. He has been using the flutter valve and it seems to help. The patient is eating well. Medications: Reviewed: Yes Vitals/I&O/Wt Last Vital Signs Temp 99.6 F 12/17/19 19:00 Pulse 122 H 12/18/19 08:32 Resp 18 12/18/19 08:30 BP 126/76 12/18/19 06:00 Pulse Ox 92 12/18/19 08:30 12/17/19 12/18/19 12/18/19 22:59 06:59 14:59 Intake Total 530 / 1130 150 / 1280 360 / 360 Output Total 600 / 1015 600 / 1615 175 / 175 Balance -70 / 115 -450 / -335 185 / 185 Weight last 48 hrs Weight 109 lb Weight 108 lb 8 oz Physical Exam Narrative: EXAM NARRATIVE: General: Alert and oriented x3, slightly dyspneic at rest. Mouth: No further thrush noted. Cardiac: Tachycardic rate with regular rhythm Lungs: Decreased air entry in the right base with scattered bilateral wheezes and rhonchi in the left lower lungs. Abdomen: Soft, nontender Extremities: Trace edema Data : 12/18/19 03:45 12/18/19 03:45 A&P Additional A&P Information 1. Bilateral pneumonia - The patient is currently being treated for pneumonia with Levaquin, cefepime and Bactrim. He was on Levaquin and Zosyn for 9 days without significant improvement, so was changed to imipenem with Bactrim and Levaquin on 12/08/2019 to help cover for atypicals or resistant strains. The imipenem has been switched to cefepime on 12/12/2019. The underlying cause is certainly secondary to postobstructive pneumonia from his cancer. New sputum sample was sent down and culture is pending. We will look for possibility of other underlying resistant infection. Continue with current antibiotics. 2. Anemia -the patient's hemoglobin is stable. 3. Hypoxia -the patient is currently on 40% oxygen via high flow nasal cannula and his oxygen levels are in the lower 90s. His oxygen continues to desaturate with any levels of exertion. CT scan did not show any signs of pulmonary embolism, however continues to show signs of pneumonia as well as advancing cancer. Continue with flutter valve. 4. Metastatic lung cancer -the patient's tumor has shrunk with radiation treatments. There are scattered nodules present though. I am concerned that the cancer is advancing clinically. I spoke with the patient regarding hospice on 12/12/2019 as well as options for continuing with treatment and the patient will think about hospice, however for now would prefer to continue to try antibiotic treatments. The patient is aware that his overall prognosis is poor. 5. Pain control -the patient's pain seems to be well controlled with Percocet. Continue with this medication and change if needed. 6. Nausea -improved at this time. The patient is able to tolerate food by mouth well. 7. Thrush -continue with nystatin to swish and swallow for treatment. 8. Elevated digoxin level -digoxin level down to normal range. Digoxin has been restarted at 0.125 mg daily. His heart rate has improved from the 130s to the 115 range. 9. Prophylaxis -the patient is currently on Eliquis for A. fib prophylaxis and this should cover him for DVT prophylaxis as well. Attestations Medical Necessity Statement*: The patient continues to be on high flow oxygen and continues to need ICU care. Time Spent in Patient Care: 16 - 35 minutes Coding Level of Care Code Acute Paperboard Boxes Estimator for Padmini Killian
[2019-12-18] MEDS: ondansetron 2 mg/ML SDV 2 mL 4 MG IVP (11:48)
[2019-12-18] MEDS: oxyCODONE-APAP 5-325 mg Tablet 1 TAB PO ×2 (15:15→21:25)
--- NOTE | 2019-12-18 16:41 | PC.OT ---
OT Note: Patient refused therapy this afternoon. Will reattempt tomorrow.
--- NOTE | 2019-12-18 16:48 | PC.NURSE ---
Patient declined multiple offers for a bath, linen change and assistance with oral care this shift.
[2019-12-18] MEDS: tamsulosin 0.4 mg Capsule PO (20:58)
[2019-12-18] MEDS: levofloxacin-dextrose 5 % 750 MG/150 ML PREMIX 100 MG IV (20:58)
[2019-12-18] MEDS: OLANZapine 10 mg TABLET PO (20:58)
[2019-12-18] MEDS: OLANZapine 5 mg TABLET PO (20:58)
[2019-12-18] MEDS: ALPRAZolam 0.25 mg Tablet 0.125 MG PO (22:34)
[2019-12-18] MEDS: zolpidem 5 mg Tablet PO (22:34)
[2019-12-19] VITALS (29 sets, daily range): BP systolic 89–121; BP diastolic 58–82; PULSE 98–133; RESP 10–26; TEMP 36.4–37.1; O2SAT 92–98
[2019-12-19] MEDS: cefepime 2,000 MG in sodium chloride 0.9% (plus) 50 ML 100 MG IV ×2 (04:06→15:03)
[2019-12-19] MEDS: levalbuterol 1.25 mg/3 mL Neb INHALATION ×4 (04:37→21:10)
--- NOTE | 2019-12-19 06:22 | PC.NURSE ---
Patient refused to turn throughout shift despite education re: turning.
[2019-12-19] MEDS: guaiFENesin 600 mg Tablet PO ×2 (09:43→18:11)
[2019-12-19] MEDS: multivitamin therapeutic Tablet 1 TAB PO (09:43)
[2019-12-19] MEDS: digoxin 125 mcg Tablet PO (09:43)
[2019-12-19] MEDS: sertraline 100 mg Tablet 200 MG PO (09:43)
[2019-12-19] MEDS: sennosides-docusate Tablet 1 TAB PO ×2 (09:43→18:11)
[2019-12-19] MEDS: nystatin 100,000 unit/mL UDC 5 mL 500000 UNIT PO ×4 (09:43→22:08)
[2019-12-19] MEDS: pantoprazole DR 40 mg Tablet PO (09:43)
[2019-12-19] MEDS: sulfamethoxazole-trimeth DS 160-800 mg Tablet 1 TAB PO ×2 (09:43→18:11)
[2019-12-19] MEDS: apixaban 5 mg Tablet 2.5 MG PO ×2 (09:43→18:11)
[2019-12-19] MEDS: metoprolol tartrate 25 mg Tablet 12.5 MG PO ×2 (09:44→18:11)
--- NOTE | 2019-12-19 11:30 | PC.SOCIAL ---
IMM Update Pg. 2 of IMM updated and reviewed with patient who verbalized understanding. Copy provided.
--- NOTE | 2019-12-19 13:09 | PM.PN ---
Subjective Subjective: Interval history: The patient feels like his breathing has improved today. He has been able to cough up some phlegm and feels like he has little more energy. The patient's oxygen levels are staying in the mid 90s on 40% FiO2 currently. Medications: Reviewed: Yes Vitals/I&O/Wt Last Vital Signs Temp 97.6 F 12/19/19 04:00 Pulse 133 H 12/19/19 10:00 Resp 21 H 12/19/19 10:00 BP 97/65 12/19/19 10:00 Pulse Ox 92 12/19/19 10:00 12/18/19 12/19/19 12/19/19 22:59 06:59 14:59 Intake Total 290 / 890 Output Total 730 / 1305 560 / 1865 50 / 50 Balance -440 / -415 -560 / -975 -50 / -50 Weight last 48 hrs Weight 108 lb Weight 109 lb Physical Exam Narrative: EXAM NARRATIVE: General: Alert and oriented x3, slightly dyspneic at rest. Mouth: No further thrush noted. Cardiac: Tachycardic rate with regular rhythm Lungs: Decreased air entry in the right base with scattered bilateral wheezes and rhonchi in the left lower lungs. Abdomen: Soft, nontender Extremities: Trace edema Data : 12/18/19 03:45 12/18/19 03:45 A&P Additional A&P Information 1. Bilateral pneumonia - The patient is currently being treated for pneumonia with Levaquin, cefepime and Bactrim. He was on Levaquin and Zosyn for 9 days without significant improvement, so was changed to imipenem with Bactrim and Levaquin on 12/08/2019 to help cover for atypicals or resistant strains. The imipenem has been switched to cefepime on 12/12/2019. The underlying cause is certainly secondary to postobstructive pneumonia from his cancer. New sputum sample was sent down and culture is pending. We will look for possibility of other underlying resistant infection. Continue with current antibiotics. 2. Anemia -the patient's hemoglobin is stable. 3. Hypoxia -the patient is currently on 40% oxygen via high flow nasal cannula and his oxygen levels are in the mid-90s. His oxygen continues to desaturate with any levels of exertion. CT scan did not show any signs of pulmonary embolism, however continues to show signs of pneumonia as well as advancing cancer. Continue with flutter valve. He is showing some signs of improvement in this area and hopefully his oxygen levels can be weaned. 4. Metastatic lung cancer -the patient's tumor has shrunk with radiation treatments. There are scattered nodules present though. I am concerned that the cancer is advancing clinically. I spoke with the patient regarding hospice on 12/12/2019 as well as options for continuing with treatment and the patient will think about hospice, however for now would prefer to continue to try antibiotic treatments. The patient is aware that his overall prognosis is poor. 5. Pain control -the patient's pain seems to be well controlled with Percocet. Continue with this medication and change if needed. 6. Nausea -improved at this time. The patient is able to tolerate food by mouth well. 7. Thrush -continue with nystatin to swish and swallow for treatment. 8. Elevated digoxin level -digoxin level down to normal range. Digoxin has been restarted at 0.125 mg daily. His heart rate has improved from the 130s to the 115 range. 9. Prophylaxis -the patient is currently on Eliquis for A. fib prophylaxis and this should cover him for DVT prophylaxis as well. Attestations Medical Necessity Statement*: The patient continues need ICU care at this time. If he continues to improve, he may be able to be moved from the ICU over the next couple of days. Time Spent in Patient Care: 16 - 35 minutes Coding Level of Care Code Acute Outboard Motor Mechanic for Padmini Killian
[2019-12-19] MEDS: ALPRAZolam 0.25 mg Tablet 0.125 MG PO ×2 (15:06→22:11)
--- NOTE | 2019-12-19 15:35 | PC.NURSE ---
Report faxed to [facility]. Further verbal report given to Herson Mistry.
--- NOTE | 2019-12-19 15:36 | PC.NURSE ---
Pt's son Milad, notified via telephone of impending transfer to [facility].
--- NOTE | 2019-12-19 15:58 | PC.NURSE ---
Pt transferred to [facility] via bed, with all of his belongings.
[2019-12-19] MEDS: oxyCODONE-APAP 5-325 mg Tablet 1 TAB PO (16:53)
[2019-12-19] MEDS: tamsulosin 0.4 mg Capsule PO (22:08)
[2019-12-19] MEDS: OLANZapine 5 mg TABLET PO (22:08)
[2019-12-19] MEDS: levofloxacin-dextrose 5 % 750 MG/150 ML PREMIX 100 MG IV (22:08)
[2019-12-19] MEDS: OLANZapine 10 mg TABLET PO (22:08)
[2019-12-19] MEDS: zolpidem 5 mg Tablet PO (22:12)
[2019-12-20] VITALS (18 sets, daily range): BP systolic 95–108; BP diastolic 61–74; PULSE 65–128; RESP 16–20; TEMP 36.7–37.2; O2SAT 91–98
[2019-12-20] MEDS: levalbuterol 1.25 mg/3 mL Neb INHALATION ×4 (02:34→20:42)
[2019-12-20] MEDS: cefepime 2,000 MG in sodium chloride 0.9% (plus) 50 ML 100 MG IV ×2 (03:58→14:49)
[2019-12-20 07:21] LABS: Basophils # 0.1 10^3/uL (0.0-0.1); Basophils % 0.3 %; Eosinophils # 0.1 10^3/uL (0.0-0.8); Eosinophils % 0.3 %; Hematocrit 39.8 % (42.0-52.0); Hemoglobin 12.2 g/dL (11.7-16.6); Lymphocytes # 1.2 10^3/uL (0.8-4.8); Lymphocytes % 7.6 %; Mean Corpuscular HGB Conc 30.7 g/dL (30.0-36.0); Mean Corpuscular Hemoglobin 26.8 pg (28.0-34.0); Mean Corpuscular Volume 87.5 fL (80-94); Mean Platelet Volume 9.6 fL (7.4-10.4); Monocytes # 0.8 10^3/uL (0.2-0.9); Monocytes % 5.1 %; Nucleated Red Blood Cells % 0 %; Platelet Count 217 10^3/cmm (130-400); Red Blood Count 4.55 10^6/uL (4.1-5.3); Red Cell Distribution Width 19.8 % (12.1-15.1); White Blood Count 15.8 10^3/uL (4.0-10.0)
--- NOTE | 2019-12-20 07:24 | P.PN_ITS ---
Subjective Subjective: Interval history: No new complaints today. FiO2 down to 30% currently at 20 L/min. Complaining of new onset headache today Medications: Reviewed: Yes Vitals/I&O/Wt Last Vital Signs Temp 98.3 F 12/20/19 04:00 Pulse 112 H 12/20/19 05:46 Resp 20 H 12/20/19 05:46 BP 95/63 12/20/19 04:00 Pulse Ox 95 12/20/19 05:46 12/19/19 12/20/19 12/20/19 22:59 06:59 14:59 Intake Total 450 / 1200 240 / 1440 Output Total 1125 / 1425 Balance 450 / 900 -885 / 15 Weight last 48 hrs Weight 50.621 kg Weight 48.988 kg Physical Exam Narrative: EXAM NARRATIVE: GEN: Awake, alert and oriented, no acute distress CVS: S1S2 N RS: Bilateral scattered wheezing on auscultation Abd: Soft, nt/nd , bs+ BRIDGES SUPERVISOR: no focal neuro deficits Data : 12/20/19 07:11 12/20/19 07:11 Micro: Microbiology 12/19/19 12:01 Gram Stain - Final Sputum - Expectorated Sputum A&P Assessment and plan (1) Pneumonia: Continue Levaquin, cefepime. Bactrim. Continue current regimen. WBC trending down Continue Solu-Medrol dose to 40 mg iv q8h Currently on 30% FiO2 from 40% FiO2 yesterday, 20 L/min heated high flow CT chest negative for pulmonary embolism COVID testing was negative Blood culture is negative Nebulized treatments every 6 hours Wean oxygen as tolerated. 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 Sibley -MRI head (09/2019): no evidence of metastatic disease -has port-A-cath in place Has not been tolerating physical therapy, and so this had to be stopped. Reportedly patient does not feel ready for hospice care. Continue to readdress goals of care. Status: Chronic Qualifiers: Laterality: right Qualified Code(s): C34.91 - Malignant neoplasm of unspecified part of right bronchus or lung (3) Anemia: Hold iron supplement while there is suspicion of active infection. -Has known history of chronic normocytic anemia with baseline hemoglobin of around 10 -likely multifactorial given iron deficiency, underlying malignancy, poor nutrition status -Transfuse blood products if needed -Resume iron supplementation Status: Acute Qualifiers: Anemia type: unspecified type Qualified Code(s): D64.9 - Anemia, unspecified Additional A&P Information 1. Bilateral pneumonia - The patient is currently being treated for pneumonia with Levaquin, cefepime and Bactrim. He was on Levaquin and Zosyn for 9 days without significant improvement, so was changed to imipenem with Bactrim and Levaquin on 12/08/2019 to help cover for atypicals or resistant strains. The imipenem has been switched to cefepime on 12/12/2019. The underlying cause is certainly secondary to postobstructive pneumonia from his cancer. New sputum sample was sent down and culture is pending. We will look for possibility of other underlying resistant infection. Continue with current antibiotics. 2. Anemia -the patient's hemoglobin is stable. 3. Hypoxia -the patient is currently on 40% oxygen via high flow nasal cannula and his oxygen levels are in the mid-90s. His oxygen continues to desaturate with any levels of exertion. CT scan did not show any signs of pulmonary embolism, however continues to show signs of pneumonia as well as advancing cancer. Continue with flutter valve. He is showing some signs of improvement in this area and hopefully his oxygen levels can be weaned. 4. Metastatic lung cancer -the patient's tumor has shrunk with radiation treatments. There are scattered nodules present though. concerned that the cancer is advancing clinically. Declined hospice on 12/12/2019 as well as options for continuing with treatment and the patient will think about hospice, however for now would prefer to continue to try antibiotic treatments. The kristin jacobs is aware that his overall prognosis is poor. 5. Pain control -the patient's pain seems to be well controlled with Percocet. Continue with this medication and change if needed. 6. Nausea -improved at this time. The patient is able to tolerate food by mouth well. 7. Thrush -continue with nystatin to swish and swallow for treatment. 8. Elevated digoxin level -digoxin level down to normal range. Digoxin has been restarted at 0.125 mg daily. His heart rate has improved from the 130s to the 115 range. 9. Prophylaxis -the patient is currently on Eliquis for A. fib prophylaxis and this should cover him for DVT prophylaxis as well. #10 complains of new headache today: We will obtain CT head to rule out any metastatic disease Attestations Medical Necessity Statement*: High oxygen requirements,, continues to be on high flow nasal cannula, headache requiring CT head Coding Level of Care Code Acute Sweatband Drummer for [facility] Fwd Diagnoses Pneumonia J18.9 Laterality: bilateral Lung location: lower lobe of lung Pneumonia type: due to unspecified organism Squamous cell lung cancer C34.91 Laterality: right Anemia D64.9 Anemia type: unspecified type
[2019-12-20 07:26] LABS: Neutrophils % 86.7 %
[2019-12-20 07:53] LABS: Alanine Aminotransferase 40 U/L (0-41); Albumin Level 3.6 g/dL (3.5-5.2); Alkaline Phosphatase 128 IU/L (40-130); Anion Gap 13.6 (5-19); Aspartate Amino Transferase 24 U/L (0-40); Blood Urea Nitrogen 34 mg/dL (8-23); CRP High Sensitivity Cardiac < 0.150 mg/dL (0.0-0.3); Calcium 8.5 mg/dL (8.5-10.5); Carbon Dioxide 27 mmol/L (22-29); Chloride 100 mmol/L (98-107); Globulin 2.9 g/dL (1.3-4.6); Glomerular Filtration Rate 133.2 mL/min (90-130); Glucose 124 mg/dL (65-115); Lactate Dehydrogenase 200 U/L (135-225); NT Pro B Type Natriuretic Pept 228 pg/mL (0-125); Osmolality Calculated 281 mOsm/kg (285-295); Potassium 4.6 mmol/L (3.5-5.1); Sodium 136 mmol/L (136-145); Total Bilirubin 0.2 mg/dL (0.15-1.2); Total Protein 6.5 g/dL (6.6-8.7)
[2019-12-20] MEDS: nystatin 100,000 unit/mL UDC 5 mL 500000 UNIT PO ×4 (08:46→22:31)
[2019-12-20] MEDS: sennosides-docusate Tablet 1 TAB PO ×2 (08:46→17:32)
[2019-12-20] MEDS: sertraline 100 mg Tablet 200 MG PO (08:47)
[2019-12-20] MEDS: apixaban 5 mg Tablet 2.5 MG PO ×2 (08:47→17:26)
[2019-12-20] MEDS: guaiFENesin 600 mg Tablet PO ×2 (08:47→17:26)
[2019-12-20] MEDS: sulfamethoxazole-trimeth DS 160-800 mg Tablet 1 TAB PO ×2 (08:47→17:27)
[2019-12-20] MEDS: pantoprazole DR 40 mg Tablet PO (08:47)
[2019-12-20] MEDS: multivitamin therapeutic Tablet 1 TAB PO (08:47)
[2019-12-20] MEDS: metoprolol tartrate 25 mg Tablet 12.5 MG PO ×2 (08:48→17:31)
[2019-12-20] MEDS: digoxin 125 mcg Tablet PO (08:48)
[2019-12-20] MEDS: ALPRAZolam 0.25 mg Tablet 0.125 MG PO ×2 (08:48→22:41)
--- NOTE | 2019-12-20 16:30 | CTR_ITS ---
PROCEDURE INFORMATION: Exam: CT Head Without Contrast Exam date and time: 12/20/2019 5:13 PM Age: 69 years old Clinical indication: Pain; Headache not specified; Patient HX: HX of lung CA w new onset CHOUDHURY; Additional info: New headache, lung cancer, evaluate for metastasis TECHNIQUE: Imaging protocol: Computed tomography of the head without contrast. Radiation optimization: All CT scans at this facility use at least one of these dose optimization techniques: automated exposure control; mA and/or kV adjustment per patient size (includes targeted exams where dose is matched to clinical indication); or iterative reconstruction. COMPARISON: MRI Head w/wo* [id number] 09/16/2019 9:30 AM RADIATION DOSE METRICS: Total DLP (mGy-cm): 745.68 FINDINGS: Brain: There is diffuse cerebral atrophy present, consistent with this patient's age. Periventricular and subcortical white matter low densities are present which at this age likely represent microvascular ischemic change. No evidence for large acute ischemic infarction. Please note acute ischemia can be occult by head CT. Ventricles: Normal. No ventriculomegaly. Bones/joints: Unremarkable. No acute fracture. Sinuses: Visualized sinuses are unremarkable. No fluid levels. Mastoid air cells: Visualized mastoid air cells are well aerated. Vasculature: Calcified plaque is present within the carotid siphons. Soft tissues: Unremarkable. CT/CT head wo con* [id number] IMPRESSION: There are senescent changes of the brain as described above. No evidence for metastatic disease. Please note this is not optimally evaluated by CT scan without contrast. Radiation Dose CTDIVOL = (mGy): DLP = 745.68 (mGy-cm)
[2019-12-20] MEDS: oxyCODONE-APAP 5-325 mg Tablet 1 TAB PO (18:51)
[2019-12-20] MEDS: tamsulosin 0.4 mg Capsule PO (22:31)
[2019-12-20] MEDS: OLANZapine 10 mg TABLET PO (22:31)
[2019-12-20] MEDS: OLANZapine 5 mg TABLET PO (22:31)
[2019-12-20] MEDS: levofloxacin-dextrose 5 % 750 MG/150 ML PREMIX 100 MG IV (22:32)
[2019-12-20] MEDS: zolpidem 5 mg Tablet PO (22:41)
[2019-12-21] VITALS (13 sets, daily range): BP systolic 90–119; BP diastolic 60–69; PULSE 96–178; RESP 13–24; TEMP 36.3–37.1; O2SAT 92–99
[2019-12-21] MEDS: levalbuterol 1.25 mg/3 mL Neb INHALATION ×2 (03:12→14:29)
[2019-12-21] MEDS: cefepime 2,000 MG in sodium chloride 0.9% (plus) 50 ML 100 MG IV ×2 (03:36→14:37)
[2019-12-21] MEDS: sennosides-docusate Tablet 1 TAB PO ×2 (10:08→18:12)
[2019-12-21] MEDS: apixaban 5 mg Tablet 2.5 MG PO ×2 (10:08→18:25)
[2019-12-21] MEDS: sulfamethoxazole-trimeth DS 160-800 mg Tablet 1 TAB PO ×2 (10:09→18:13)
[2019-12-21] MEDS: digoxin 125 mcg Tablet PO (10:09)
[2019-12-21] MEDS: multivitamin therapeutic Tablet 1 TAB PO (10:09)
[2019-12-21] MEDS: pantoprazole DR 40 mg Tablet PO (10:10)
[2019-12-21] MEDS: metoprolol tartrate 25 mg Tablet 12.5 MG PO (10:10)
[2019-12-21] MEDS: sertraline 100 mg Tablet 200 MG PO (10:16)
[2019-12-21] MEDS: guaiFENesin 600 mg Tablet PO ×2 (10:16→18:12)
--- NOTE | 2019-12-21 10:36 | PC.SOCIAL ---
IMM Updated Updated pt on Pg 2 IMM. No questions voiced. Provided pt a copy. Signed, dated, & timed copy in chart.
--- NOTE | 2019-12-21 11:58 | PC.CHAP ---
Pastoral Care Encounter/Spiritual Assessment Type of Contact [xx] Declined children's choir director visit [] Patient/Family/Request visit [] Outpatient visit [] Follow-up visit [] Physician referral [] Code/Alert [xx] Routine visit [] Staff referral [] Actively dying [] Patient sleeping [] Family support [] [] Out of room [] Palliative care [] [] Receiving care in room [] Pre-surgical visit [] Trauma [] Long length of stay [] ICU visit [] Other: Relational/Emotional Strength [] Patient feels connected with others/family/visitors/staff [] Distress [] Loneliness/isolation [] Abandonment Spirituality of Patient [] Person of Maru [] Attends Druze of their Maru [] Believes in Prayer [] Reads Bible or Mormonism materials [] There are Spiritual issues to be addressed Lining Strap Closer Interventions [] Prayer [] Active listening [] Non-anxious presence [] Spiritual/emotional support [] Crisis/trauma care [] Spiritual counseling [] Bereavement support [] Provided bereavement packet [] Provided Bible/devotional materials [] Provided toy/stuffed animal, coloring book to patient or family member [] Provided Communion [] Anointing/[place] [] Salvation [] Completed spiritual assessment [] Other: Impact on Illness or Injury [] Angry [] Fearful [] Anxious [] Often cries [] Exhaustion [] Unable to work [] Unable to attend episcopalian [] Unable to walk/stand [] Unable to read [] Unable to drive [] Unable to eat/drink [] Unable to sleep [] Unable to be with family [] Patient intubated [] Other: Summary: Unfortunately, my timing on this floor intersected with lunch deliveries. Regardless, Mr. Jeffrey declined a visit today. Time spent with patient: 3 mins
--- NOTE | 2019-12-21 13:09 | PC.NURSE ---
received into room 111-1 from 2nd floor at 0915.report received.pt transferred due to afib w/rvr and requiring cardizem drip.pt is alert and oriented x 4.denies pain,sob,dizziness,cp.no diaphoresis noted.bp stable.hr 120-130's.cardizem drip initiated at 5 mg/ as ordered.titrated up to 12.5 mg for cont hr over 110.appears to have converted to st w/freq pac's shortly after arrival to [facility].
--- NOTE | 2019-12-21 15:55 | P.PN_ITS ---
Subjective Subjective: Interval history: This morning patient had an episode of A. fib with RVR with his heart rate going up to 170 during the event. He was symptomatic, felt palpitations and vague chest discomfort. He converted back to sinus rhythm with Cardizem 10 mg push and thereafter been started on a Cardizem infusion. His oxygen requirements are currently improving. He was titrated d own from heated high flow down to high flow nasal cannula at 6 to 8 L/min. Medications: Reviewed: Yes Vitals/I&O/Wt Last Vital Signs Temp 98.7 F 12/21/19 12:00 Pulse 108 H 12/21/19 14:36 Resp 20 H 12/21/19 14:31 BP 119/69 12/21/19 12:00 Pulse Ox 99 12/21/19 14:31 12/21/19 12/21/19 12/21/19 06:59 14:59 22:59 Intake Total 290 / 1745 491.25 / 491.25 Output Total 1275 / 2150 200 / 200 Balance -985 / -405 291.25 / 291.25 Weight last 48 hrs Weight 55.083 kg Weight 50.621 kg Physical Exam Narrative: EXAM NARRATIVE: GEN: Awake, alert and oriented, no acute distress, working with OT at the time of exam CVS: S1S2 N RS: Bilateral scattered wheezing on auscultation Abd: Soft, nt/nd , bs+ CHEMISTRY LECTURER: no focal neuro deficits Data : 12/20/19 07:11 12/20/19 07:11 Micro: Microbiology 12/19/19 12:01 Gram Stain - Final Sputum - Expectorated Sputum Sputum Culture - Final A&P Assessment and plan (1) Pneumonia: Continue Levaquin, cefepime. Bactrim. Continue current regimen. WBC trending down Continue Solu-Medrol dose to 40 mg iv q8h Currently he has been able to be titrated down to high flow nasal cannula from heated high flow. Currently between 6 to 8 L/min, continue the same and titrate for O2 sats 90 to 92%. CT chest negative for pulmonary embolism COVID testing was negative Blood culture is negative Nebulized treatments every 6 hours Wean oxygen as tolerated. 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 Sibley -MRI head (09/2019): no evidence of metastatic disease -has port-A-cath in place Has not been tolerating physical therapy, and so this had to be stopped. Currently is working with OT. Reportedly patient does not feel ready for hospice care. Continue to readdress goals of care. Status: Chronic Qualifiers: Laterality: right Qualified Code(s): C34.91 - Malignant neoplasm of unspecified part of right bronchus or lung (3) Anemia: Hold iron supplement while there is suspicion of active infection. -Has known history of chronic normocytic anemia with baseline hemoglobin of around 10 -likely multifactorial given iron deficiency, underlying malignancy, poor nutrition status -Transfuse blood products if needed -Resume iron supplementation Status: Acute Qualifiers: Anemia type: unspecified type Qualified Code(s): D64.9 - Anemia, unspecified Additional A&P Information 1. Bilateral pneumonia - The patient is currently being treated for pneumonia with Levaquin, cefepime and Bactrim. He was on Levaquin and Zosyn for 9 days without significant improvement, so was changed to imipenem with Bactrim and Levaquin on 12/08/2019 to help cover for atypicals or resistant strains. The imipenem has been switched to cefepime on 12/12/2019. The underlying cause is certainly secondary to postobstructive pneumonia from his cancer. New sputum sample was sent down and culture is pending. We will look for possibility of other underlying resistant infection. Continue with current antibiotics. 2. Anemia -the patient's hemoglobin is stable. 3. Hypoxia -today the patient has been able to be weaned down from heated high flow to high flow nasal cannula. His oxygen continues to desaturate with any levels of exertion. CT scan did not show any signs of pulmonary embolism, however continues to show signs of pneumonia as well as advancing cancer. Continue with flutter valve. He is showing some signs of improvement in this area and hopefully his oxygen levels can be weaned. 4. Metastatic lung cancer -the patient's tumor has shrunk with radiation treatments. There are scattered nodules present though. concerned that the cancer is advancing clinically. Declined hospice on 12/12/2019 as well as options for continuing with treatment and the patient will think about hospice, however for now would prefer to continue to try antibiotic treatments. The patient is aware that his overall prognosis is poor. 5. Pain control -the patient's pain seems to be well controlled at this present time. 6. Nausea -improved at this time. The patient is able to tolerate food by mouth well. 7. Thrush now resolved after nystatin swish and swallow. 8. Elevated digoxin level -digoxin level down to normal range. Digoxin has been restarted at 0.125 mg daily. 9. Prophylaxis -the patient is currently on Eliquis for A. fib prophylaxis and this should cover him for DVT prophylaxis as well. #10 Headace: CT head without evidence of acute intracranial events. # A fib with RVR this morning, given cardizem push and started on infusion, now converted back to sinus rhythm. Increase metroprolol dosing and wean off cardizem Attestations Medical Necessity Statement*: A fib with RVR, optmization of respiratory status Coding Level of Care Code Acute Director Of Programming for [facility] Fwd Diagnoses Pneumonia J18.9 Laterality: bilateral Lung location: lower lobe of lung Pneumonia type: due to unspecified organism Squamous cell lung cancer C34.91 Laterality: right Anemia D64.9 Anemia type: unspecified type
[2019-12-21] MEDS: metoprolol tartrate 25 mg Tablet PO (18:13)
--- NOTE | 2019-12-21 19:15 | PC.NURSE ---
metoprolol increased to 25 mg po bid.pt remains in sr-st with now occas pac's.cardizem drip has been weaned off.
[2019-12-21] MEDS: OLANZapine 10 mg TABLET PO (21:27)
[2019-12-21] MEDS: zolpidem 5 mg Tablet PO (21:27)
[2019-12-21] MEDS: tamsulosin 0.4 mg Capsule PO (21:27)
[2019-12-21] MEDS: levofloxacin-dextrose 5 % 750 MG/150 ML PREMIX 100 MG IV (21:27)
[2019-12-21] MEDS: OLANZapine 5 mg TABLET PO (21:27)
[2019-12-21] MEDS: ALPRAZolam 0.25 mg Tablet 0.125 MG PO (21:29)
[2019-12-22] VITALS (11 sets, daily range): BP systolic 88–125; BP diastolic 59–78; PULSE 89–159; RESP 13–22; TEMP 36.4–36.7; O2SAT 93–99; BMI 19.3
[2019-12-22] MEDS: cefepime 2,000 MG in sodium chloride 0.9% (plus) 50 ML 100 MG IV ×2 (02:43→14:43)
[2019-12-22] MEDS: levalbuterol 1.25 mg/3 mL Neb INHALATION ×2 (02:43)
[2019-12-22 05:59] LABS: Basophils % 0.2 %; Eosinophils % 0.1 %; Hemoglobin 11.3 g/dL (11.7-16.6); Lymphocytes # 1.2 10^3/uL (0.8-4.8); Lymphocytes % 6.7 %; Mean Corpuscular HGB Conc 30.5 g/dL (30.0-36.0); Mean Corpuscular Hemoglobin 26.8 pg (28.0-34.0); Mean Corpuscular Volume 87.9 fL (80-94); Mean Platelet Volume 9.7 fL (7.4-10.4); Monocytes # 0.6 10^3/uL (0.2-0.9); Monocytes % 3.5 %; Neutrophils # 14.77 10^3/uL (1.8-7.7); Neutrophils % 84.1 %; Nucleated Red Blood Cells % 0 %; Platelet Count 206 10^3/cmm (130-400); Red Blood Count 4.21 10^6/uL (4.1-5.3); Red Cell Distribution Width 19.8 % (12.1-15.1); White Blood Count 17.6 10^3/uL (4.0-10.0)
[2019-12-22 06:25] LABS: Alanine Aminotransferase 34 U/L (0-41); Albumin Level 3.5 g/dL (3.5-5.2); Alkaline Phosphatase 117 IU/L (40-130); Anion Gap 12.4 (5-19); Aspartate Amino Transferase 18 U/L (0-40); Blood Urea Nitrogen 33 mg/dL (8-23); Calcium 8.6 mg/dL (8.5-10.5); Carbon Dioxide 29 mmol/L (22-29); Chloride 100 mmol/L (98-107); Globulin 2.8 g/dL (1.3-4.6); Glomerular Filtration Rate 164.4 mL/min (90-130); Glucose 134 mg/dL (65-115); Osmolality Calculated 283 mOsm/kg (285-295); Potassium 4.4 mmol/L (3.5-5.1); Sodium 137 mmol/L (136-145); Total Bilirubin 0.2 mg/dL (0.15-1.2); Total Protein 6.3 g/dL (6.6-8.7)
[2019-12-22 06:35] LABS: Slide Review Slide Review Perform
[2019-12-22] MEDS: metoprolol tartrate 25 mg Tablet PO ×3 (08:37→17:53)
[2019-12-22] MEDS: sennosides-docusate Tablet 1 TAB PO ×2 (08:37→17:53)
[2019-12-22] MEDS: digoxin 125 mcg Tablet PO (08:37)
[2019-12-22] MEDS: pantoprazole DR 40 mg Tablet PO (08:37)
[2019-12-22] MEDS: sertraline 100 mg Tablet 200 MG PO (08:37)
[2019-12-22] MEDS: guaiFENesin 600 mg Tablet PO ×2 (08:37→17:52)
[2019-12-22] MEDS: multivitamin therapeutic Tablet 1 TAB PO (08:37)
[2019-12-22] MEDS: sulfamethoxazole-trimeth DS 160-800 mg Tablet 1 TAB PO ×2 (08:37→17:52)
[2019-12-22] MEDS: apixaban 5 mg Tablet 2.5 MG PO ×2 (08:38→17:53)
--- NOTE | 2019-12-22 10:14 | PC.NURSE ---
dr rhodes notifed of pt heart rate being 110-130 at this time. digoxin and metoprolol administered per order this morning at 0837. will continue to monitor pt and wait for dr soriano.
--- NOTE | 2019-12-22 11:00 | PC.NURSE ---
metoprolol administered, heart rate improved to 85-95's. will continue to monitor.
--- NOTE | 2019-12-22 14:38 | P.PN_ITS ---
Subjective Subjective: Interval history: He reports he is doing little bit better. Shortness of breath little bit better now that his heart rate is better compared to this morning. Vitals/I&O/Wt Last Vital Signs Temp 97.5 F L 12/22/19 12:00 Pulse 89 12/22/19 12:00 Resp 21 H 12/22/19 12:00 BP 100/68 12/22/19 12:00 Pulse Ox 99 12/22/19 12:00 12/21/19 12/22/19 12/22/19 22:59 06:59 14:59 Intake Total 141.125 / 632.375 600 / 1232.375 480 / 480 Output Total 425 / 625 550 / 1175 475 / 475 Balance -283.875 / 7.375 50 / 57.375 5 / 5 Weight last 48 hrs Weight 55.99 kg Weight 55.083 kg Physical Exam Const: COMMON NORMALS: alert GENERAL APPEARANCE: cooperative, comfortable, frail appearing and other (Weak, easily fatigable) NUTRITIONAL APPEARANCE: thin ORIENTATION/CONSCIOUSNESS: Yes awake HENMT: COMMON NORMALS: oropharynx normal Neck/C-Spine: COMMON NORMALS: no JVD Resp: COMMON NORMALS: normal respiratory effort AUSCULTATION: diminished lung sounds OTHER: Coarse breath sounds, few rhonchi on the L Cardio: COMMON NORMALS: no JVD, S1 normal heart sound present, S2 normal heart sound present and No murmurs present (Cardio) RATE: tachycardic HEART SOUNDS: S1 normal heart sound present and S2 normal heart sound present GI: COMMON NORMALS: Normal to inspection, nondistended, normoactive bowel sounds present, Soft to palpation and non-tender PALPATION: Yes Soft to palpation Extremity: COMMON NORMALS: no joint enlargement and no pedal edema Neuro: COMMON NORMALS: moves all extremities SENSORIUM/ORIENTATION: Yes alert Skin: COMMON NORMALS: no rashes or lesions noted GENERAL SKIN EXAM: no rashes or lesions noted Data : 12/22/19 05:35 12/22/19 05:35 Micro: Microbiology 12/19/19 12:01 Gram Stain - Final Sputum - Expectorated Sputum Sputum Culture - Final A&P Assessment and plan (1) Atrial fibrillation with rapid ventricular response: Heart rates persist in 130s this morning. Recorded as high as 160 around 8:15. Received 25 mg metoprolol this morning. Heart rate still persistent 130s, so given extra dose 25 mg which he tolerated well. Blood pressure is somewhat in the soft side, and so for now we will hold off on changing to standing dose. Continue to monitor and reevaluate. He reports he is feeling better. Denies more shortness of breath. Has been weaning down on his oxygen requirement slowly. Continues on reduced dose Eliquis. Status: Acute (2) Pneumonia: Concern for postobstructive pneumonia. Pneumocystis, Fungitell pending. Viral panel pending. Continue Levaquin, cefepime. Bactrim. WBC today and came up at 17,000. Afebrile. Oxygenation is gradually improving. Currently he is feeling better after his heart rates are more controlled. Solu-Medrol dose was reduced to 40 mg iv q12h CT chest negative for pulmonary embolism COVID testing was negative Blood culture is negative Nebulized treatments every 6 hours Wean oxygen as tolerated. 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 Sibley -MRI head (09/2019): no evidence of metastatic disease -has port-A-cath in place Has not been tolerating physical therapy, and so this had to be stopped. Working with OT. Reportedly patient did not feel ready for hospice care. Continue to readdress goals of care. Status: Chronic Qualifiers: Laterality: right Qualified Code(s): C34.91 - Malignant neoplasm of unspecified part of right bronchus or lung (4) Anemia: Some fluctuation of hemoglobin, but overall appears stable. Today he moglobin is 1.3. Hold iron supplement while there is suspicion of active infection. -Has known history of chronic normocytic anemia with baseline hemoglobin of around 10 -likely multifactorial given iron deficiency, underlying malignancy, poor nutrition status Status: Acute Qualifiers: Anemia type: unspecified type Qualified Code(s): D64.9 - Anemia, unspecified Additional A&P Information Hypoxia -continue to wean down oxygen as tolerating. He reports he is using his flutter valve. Follow-up additional studies and treatment for pneumonia as above. Pain control - currently is not in pain. Nausea -improved. The patient is able to tolerate food by mouth well. Thrush now resolved after nystatin swish and swallow. Elevated digoxin level -improved. Continues on oral digoxin. Headache: Not complaining of headache currently. CT head without evidence of acute intracranial events. Attestations Medical Necessity Statement*: Continue admission for monitoring and optimization of treatment of A. fib with RVR, assessment of management of pneumonia, hypoxia with underlying squamous cell cancer. Coding Level of Care Code Acute [employer] for [facility] Maria D Diagnoses Atrial fibrillation with rapid ventricular response I48.91 Pneumonia J18.9 Laterality: bilateral Lung location: lower lobe of lung Pneumonia type: due to unspecified organism Squamous cell lung cancer C34.91 Laterality: right Anemia D64.9 Anemia type: unspecified type
--- NOTE | 2019-12-22 18:17 | PC.NURSE ---
pt resting in bed. pt had an uneventful day after heart rate got controlled this morning with an additional dose of metoprolol ordered. denies any pain at this time. call light in reach no other needs at this time. will continue to monitor.
[2019-12-22] MEDS: tamsulosin 0.4 mg Capsule PO (20:57)
[2019-12-22] MEDS: OLANZapine 10 mg TABLET PO (20:57)
[2019-12-22] MEDS: levofloxacin-dextrose 5 % 750 MG/150 ML PREMIX 100 MG IV (20:58)
[2019-12-22] MEDS: OLANZapine 5 mg TABLET PO (20:58)
[2019-12-22] MEDS: ALPRAZolam 0.25 mg Tablet 0.125 MG PO (20:58)
[2019-12-23] VITALS (15 sets, daily range): BP systolic 85–117; BP diastolic 59–74; PULSE 93–146; RESP 14–23; TEMP 36.5–36.8; O2SAT 92–100
[2019-12-23] MEDS: cefepime 2,000 MG in sodium chloride 0.9% (plus) 50 ML 100 MG IV ×2 (03:14→15:26)
[2019-12-23 05:07] LABS: Basophils % 0.2 %; Eosinophils % 0.1 %; Hematocrit 38.1 % (42.0-52.0); Hemoglobin 11.4 g/dL (11.7-16.6); Lymphocytes # 1.1 10^3/uL (0.8-4.8); Lymphocytes % 5.6 %; Mean Corpuscular HGB Conc 29.9 g/dL (30.0-36.0); Mean Corpuscular Hemoglobin 26.8 pg (28.0-34.0); Mean Corpuscular Volume 89.6 fL (80-94); Monocytes % 5.2 %; Neutrophils # 16.04 10^3/uL (1.8-7.7); Neutrophils % 84.8 %; Nucleated Red Blood Cells % 0 %; Platelet Count 208 10^3/cmm (130-400); Red Blood Count 4.25 10^6/uL (4.1-5.3); Red Cell Distribution Width 19.9 % (12.1-15.1); White Blood Count 18.9 10^3/uL (4.0-10.0)
[2019-12-23 05:35] LABS: Anion Gap 11.7 (5-19); Blood Urea Nitrogen 30 mg/dL (8-23); Calcium 8.8 mg/dL (8.5-10.5); Carbon Dioxide 30 mmol/L (22-29); Chloride 101 mmol/L (98-107); Glomerular Filtration Rate 111.5 mL/min (90-130); Glucose 138 mg/dL (65-115); Osmolality Calculated 285 mOsm/kg (285-295); Potassium 4.7 mmol/L (3.5-5.1); Sodium 138 mmol/L (136-145)
--- NOTE | 2019-12-23 08:18 | PC.SOCIAL ---
IMM Update Pg. 2 of IMM updated and explained to patient and verbalized understanding. Copy provided.
[2019-12-23] MEDS: levalbuterol 1.25 mg/3 mL Neb INHALATION ×3 (08:24→21:12)
[2019-12-23] MEDS: sertraline 100 mg Tablet 200 MG PO (08:32)
[2019-12-23] MEDS: apixaban 5 mg Tablet 2.5 MG PO ×2 (08:32→17:13)
[2019-12-23] MEDS: multivitamin therapeutic Tablet 1 TAB PO (08:33)
[2019-12-23] MEDS: sulfamethoxazole-trimeth DS 160-800 mg Tablet 1 TAB PO ×2 (08:33→17:12)
[2019-12-23] MEDS: digoxin 125 mcg Tablet PO (08:33)
[2019-12-23] MEDS: guaiFENesin 600 mg Tablet PO ×2 (08:33→17:13)
[2019-12-23] MEDS: sennosides-docusate Tablet 1 TAB PO ×2 (08:34→17:13)
[2019-12-23] MEDS: pantoprazole DR 40 mg Tablet PO (08:34)
--- NOTE | 2019-12-23 08:35 | PC.NURSE ---
Patient entered a flutter with RVR while Dr. Spain at bedside. Physician gave verbal order to administer 5 mg IV metoprolol ONCE. Hold PO metoprolol for now. Recheck BP in one hour. If SBP> 100, give PO Metoprolol. RBVO. Nurse to continue to monitor.
[2019-12-23] MEDS: metoprolol tartrate 1 mg/1 mL SDV 5 mL 5 MG IV (08:36)
--- NOTE | 2019-12-23 08:36 | P.PN_ITS ---
Subjective Subjective: Interval history: The patient feels like his breathing is starting to improve, however he has been having runs of fast heart rate and he feels dizzy with these. The patient denies any chest pains associated with them currently. Medications: Reviewed: Yes Vitals/I&O/Wt Last Vital Signs Temp 97.7 F 12/23/19 07:08 Pulse 146 H 12/23/19 08:33 Resp 20 H 12/23/19 07:08 BP 117/74 12/23/19 07:08 Pulse Ox 98 12/23/19 07:08 12/22/19 12/23/19 12/23/19 22:59 06:59 14:59 Intake Total 560 / 1040 Output Total 450 / 925 100 / 1025 150 / 150 Balance 110 / 115 -100 / 15 -150 / -150 Weight last 48 hrs Weight 123 lb 6.4 oz Weight 123 lb 7 oz Physical Exam Narrative: EXAM NARRATIVE: General: Alert and oriented x3. On nasal cannula oxygen at 6 L/min. Mouth: No further thrush noted. Cardiac: Tachycardic rate with irregular rhythm. Lungs: Decreased air entry in the right base with scattered bilateral wheezes and rhonchi in the left lower lungs. Abdomen: Soft, nontender Extremities: Trace edema Data : 12/23/19 03:59 12/23/19 03:59 A&P Additional A&P Information 1. Bilateral pneumonia - The patient is currently being treated for pneumonia with Levaquin, cefepime and Bactrim. He was on Levaquin and Zosyn for 9 days without significant improvement, so was changed to imipenem with Bactrim and Levaquin on 12/08/2019 to help cover for atypicals or resistant strains. The imipenem has been switched to cefepime on 12/12/2019. The underlying cause is likely secondary to postobstructive pneumonia from his cancer. New sputum sample did not show a specific bacteria as the source. I will stop Levaquin secondary to cardiac issues. 2. Anemia -the patient's hemoglobin is stable. 3. Hypoxia -the patient's oxygen needs have been decreasing and he is now on 6 L via nasal cannula. CT scan did not show any signs of pulmonary embolism, however continues to show signs of pneumonia as well as advancing cancer. Continue with flutter valve. He is showing some signs of improvement in this area and hopefully his oxygen levels can be weaned. 4. Metastatic lung cancer -the patient's tumor has shrunk with radiation treatments. There are scattered nodules present though. I am concerned that the cancer is advancing clinically. I spoke with the patient regarding hospice on 12/12/2019 as well as options for continuing with treatment and the patient will think about hospice, however for now would prefer to continue to try antibiotic treatments. The patient is aware that his overall prognosis is poor. 5. Pain control -the patient's pain seems to be well controlled with Percocet. Continue with this medication and change if needed. 6. Nausea -improved at this time. The patient is able to tolerate food by mouth well. 7. Thrush -continue with nystatin to swish and swallow for treatment. 8. Elevated digoxin level -digoxin level down to normal range. Digoxin has been restarted at 0.125 mg daily. His heart rate has improved from the 130s to the 115 range. 9. Atrial flutter with RVR -we will give the patient 5 mg of metoprolol IV and follow. I spoke with Dr. Gutierrez who agreed to see the patient and give further recommendations. The patient had been on metoprolol 12.5 mg twice daily previously and this is been increased to 25 mg twice daily. He does feel a little more lightheaded with this dose. The patient had previously been on digoxin 250 mcg, however his levels got too high. He is currently on 125 mcg daily. There could be interactions with his IV antibiotics. Levaquin will be discontinued for this reason. 10. Prophylaxis -the patient is currently on Eliquis for A. fib prophylaxis and this should cover him for DVT prophylaxis as well. Attestations Medical Necessity Statement*: The patient will be here for continued inpatient therapy for the above issues. Coding Level of Care Code Acute Supervisor Records Change for Padmini Killian
--- NOTE | 2019-12-23 09:12 | P.CONIM_ITS ---
Providers/Reason For Consult Consulting Physican/Specialty*: STEPHANIE Gutierrez MD/cardiology Reason for Consult*: Patient with atrial fibrillation/flutter, uncontrolled ventricular response rate with symptoms Attending Physician: Tc Spann Primary Care Provider: Silverio Spain MD History of Present Illness History of Present Illness Chalino Jeffrey is a 69 year old male is admitted to the hospital with increasing shortness of breath. Patient was found to have bilateral pneumonia. 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 He was found to be not a candidate for surgery. He has been undergoing radiation treatment. He has features of obstructive pneumonia. He also was found to be in intermittent atrial fibrillation/flutter. He is on long-term oral anticoagulation. He has a history of hemoptysis and rectal bleed. He also has a history of? Pulmonary embolism. He is on Eliquis 2.5 mg p.o. twice daily. He was getting digoxin and metoprolol for the rate control. Yesterday, his heart rate went up to 170. He was complaining of palpitations/discomfort in the chest. This morning again, he went back into flutter/fibrillation. He was given a stat dose of metoprolol. He denies any chest pain as such. No fever or chills. Occasional dry cough. No other specific complaints. He has no previous history for coronary artery disease, myocardial infarction or congestive heart failure. Patient had an echocardiogram done on 06 November which revealed normal LV size ejection fraction with no significant wall motion normalities. No significant valvular dysfunction. Patient has no previous history for cardiac arrhythmia. Review of Systems Narrative: CONSTITUTIONAL: No fever or chills. EYES: No blurring of vision or other visual disturbances lately. ENT: No hoarseness of voice, auditory disturbances or sore throat. CARDIOVASCULAR: As mentioned above. RESPIRATORY: History of hemoptysis/pulmonary embolism GASTROINTESTINAL: History of rectal bleed GENITOURINARY: No dysuria or hematuria. INTEGUMENTARY: No skin rashes or history of skin cancer. NEURO: No transient ischemic attacks or amaurosis. PSYCHIATRIC: No history of psychosis or major depression. HEMATOLOGIC: Anemia, normocytic normochromic ENDOCRINE: No history of polyuria or polydipsia. MUSCULOSKELETAL: No recent joint pain or swelling. ALLERGY/IMMUNOLOGY: As mentioned above. Meds/Allergies Home Medications and Allergies Home Medications Medication Instructions Recorded Confirmed Last Taken Type multivitamin [Multiple Vitamins] 1 tab PO DAILY 08/13/19 11/30/19 11/29/19 History ferrous sulfate 325 mg PO BID #60 tab 08/15/19 11/30/19 11/29/19 Rx metoprolol tartrate 12.5 mg PO BID 08/28/19 11/30/19 11/29/19 History tamsulosin 0.4 mg PO BEDTIME 10/07/19 11/30/19 11/29/19 History oxycodone-acetaminophen 1 - 2 tab PO Q4H PRN #120 tab 10/21/19 11/30/19 11/17/19 Rx lorazepam 0.5 - 1 mg PO TID PRN 11/07/19 11/30/19 11/29/19 History ondansetron 8 mg PO Q8H PRN 11/07/19 11/30/19 11/17/19 History prochlorperazine maleate 10 mg PO Q4H PRN 11/07/19 11/30/19 11/15/19 History zolpidem 5 - 10 mg PO BEDTIME PRN 11/07/19 11/30/19 11/29/19 History apixaban [Eliquis] 2.5 mg PO BID #60 tab 11/08/19 11/30/19 11/30/19 Rx digoxin 250 mcg PO DAILY #30 tab 11/08/19 11/30/19 11/30/19 Rx sennosides-docusate sodium 1 tab-cap PO BID #60 cap 11/12/19 11/30/19 11/29/19 Rx alprazolam 0.5 mg tablet 0.5 mg PO BID PRN #60 tab 11/13/19 11/30/19 11/29/19 Rx olanzapine 15 mg tablet 15 mg PO BEDTIME #30 tab 11/13/19 11/30/19 11/29/19 Rx sertraline 100 mg tablet 200 mg PO DAILY #30 tab 11/13/19 11/30/19 11/29/19 Rx Allergies Allergy/AdvReac Type Severity Reaction Status Date / Time No Known Allergies Allergy Verified 11/30/19 08:30 Current Medications Current Medications Generic Name Dose Route Start Last Admin Trade Name Freq PRN Reason Stop Dose Admin Alprazolam 0.125 mg 12/21/19 16:41 12/22/19 20:58 Xanax PO 0.125 mg TID PRN Administration ANXIETY Apixaban 2.5 mg 11/30/19 18:00 12/23/19 08:32 Eliquis PO 2.5 mg BID VIKY Administration Digoxin 125 mcg 12/17/19 09:00 12/23/19 08:33 Lanoxin PO 125 mcg DAILY VIKY Administration Guaifenesin 600 mg 12/07/19 18:00 12/23/19 08:33 Mucinex PO 600 mg BID VIKY Administration Cefepime HCl 2,000 mg/ Sodium 50 mls @ 100 mls/hr 12/12/19 15:00 12/23/19 03:14 Chloride IV 100 mls/hr Q12H VIKY Administration Protocol Diltiazem HCl 125 mg/ Sodium 125 mls @ 0 mls/hr 12/21/19 08:45 12/23/19 08:44 Chloride IV Infused .Q0M VIKY Titration Protocol Per Protocol Levalbuterol HCl 1.25 mg 12/11/19 03:00 12/23/19 08:24 Xopenex INHALATION 1.25 mg Q6H.RESPIRATORY VIKY Administration Methylprednisolone Sodium Succinate 40 mg 12/21/19 22:00 12/22/19 21:13 Solu-Medrol IVP 40 mg Q12H VIKY Administration Metoprolol Tartrate 25 mg 12/21/19 18:00 12/22/19 17:53 Lopressor PO 25 mg BID VIKY Administration Multivitamins Therapeutic 1 tab 12/01/19 09:00 12/23/19 08:33 Multivitamin Tab PO 1 tab DAILY VIKY Administration Olanzapine 10 mg 11/30/19 21:00 12/22/19 20:57 Zyprexa PO 10 mg BEDTIME VIKY Administration Olanzapine 5 mg 11/30/19 21:00 12/22/19 20:58 Zyprexa PO 5 mg BEDTIME VIKY Administration Ondansetron HCl 4 mg 11/30/19 13:15 12/18/19 11:48 Zofran IVP 4 mg Q6H PRN Administration vomiting, or N/V if npo Pantoprazole Sodium 40 mg 12/01/19 09:00 12/23/19 08:34 Protonix PO 40 mg DAILY VIKY Administration Senna/Docusate Sodium 1 tab 11/30/19 18:00 12/23/19 08:34 Senna-S PO 1 tab BID VIKY Administration Sertraline HCl 200 mg 12/01/19 09:00 12/23/19 08:32 Zoloft PO 200 mg DAILY VIKY Administration Tamsulosin HCl 0.4 mg 11/30/19 21:00 12/22/19 20:57 Flomax PO 0.4 mg BEDTIME VIKY Administration Trimethoprim/Sulfamethoxazole 1 tab 12/08/19 09:00 12/23/19 08:33 Bactrim Ds PO 1 tab BID VIKY Administration Protocol Zolpidem Tartrate 5 mg 12/21/19 16:07 12/21/19 21:27 Ambien PO 5 mg BEDTIME PRN Administration ANXIETY PFSH Acute PFSH: Medical History (Updated 12/23/19 @ 09:45 by Lopez Gutierrez MD) Anemia Anorexia nervosa, restricting type Closed left clavicular fracture Generalized anxiety disorder H/O clavicle fracture with hardware History of pulmonary embolism Intermittent atrial fibrillation Major depressive disorder, recurrent severe without psychotic features Sinus tachycardia SOB (shortness of breath) Squamous cell lung cancer Tachycardia Surgical History (Updated 12/23/19 @ 09:39 by Lopez Gutierrez MD) H/O neck surgery History of shoulder surgery Hx of cholecystectomy Family History Mother Cancer Bladder Denies family history of Anesthesia complication Bleeding disorder Social History Smoking and tobacco status: former smoker Quit status (tobacco): has quit using tobacco Former quit date comment: 3 months ago Alcohol intake: former Lives independently: Yes Household members: children Current occupational status: disabled History of recent travel: No Current gender identity: Male Vitals/I&O/Wt Last Vital Signs Temp 97.7 F 12/23/19 07:08 Pulse 115 H 12/23/19 08:35 Resp 18 12/23/19 08:30 BP 117/74 12/23/19 07:08 Pulse Ox 92 12/23/19 08:30 12/22/19 12/23/19 12/23/19 22:59 06:59 14:59 Intake Total 560 / 1040 240 / 240 Output Total 450 / 925 100 / 1025 150 / 150 Balance 110 / 115 -100 / 15 90 / 90 Weight last 48 hrs Weight 123 lb 6.4 oz Weight 123 lb 7 oz Physical Exam Narrative: EXAM NARRATIVE: GENERAL: The patient is alert and oriented times three. Not in any acute distress. Somewhat emaciated and ill looking HEENT: Mild pallor, icterus or lymphadenopathy. The pupils are reactant to light. Oral cavity: There are no mucous membrane lesions. Funduscopic examination: The fundus is not visualized NECK: Trachea appears to be central. No masses noted. No JVD or thyromegaly appreciated. No carotid bruit. RESPIRATORY: Chest is symmetrical. No intercostals muscle retraction or any accessory muscle activation. There is no chest wall tenderness. Breath sounds are heard bilaterally. Few coarse crackles at the right upper zone, posteriorly HEART: The PMI is in the 5th left intercostals space just inside the midclavicular line. No palpable precordial events. S1 and S2 are normal. No S3 or S4 heard. No pericardial rub or any click heard. ABDOMEN: No vessel pulsations or distention. No tenderness. No organomegaly appreciated. No abdominal bruit. Bowel sounds are normally heard. : Deferred. RECTAL: Deferred. LYMPHATIC: No lymphadenopathy noted in the neck or groin. EXTREMITIES: No edema or cyanosis. No clubbing. The pulses are symmetrical bilaterally. The radial, femoral, dorsalis pedis and the posterior tibial pulses are palpated and found to be in good volume and amplitude. MUSCULOSKELETAL: No acute joint deformities or swelling SKIN: No significant rashes or ecchymosis NEUROPSYCHIATRIC: The patient is alert and oriented x3. Appears to be in a good mood. The higher functions are grossly within normal limits. No tremors or rigidity noted. Data Labs: Other Labs: Laboratory Last Values WBC 18.9 10^3/uL (4.0 -10.0) H 12/23/19 03:59 RBC 4.25 10^6/uL (4.1 -5.3) 12/23/19 03:59 Hgb 11.4 g/dL (11.7-1 6.6) L 12/23/19 03:59 Hct 38.1 % (42.0-52.0 ) L 12/23/19 03:59 MCV 89.6 fL (80-94) 12/23/19 03:59 MCH 26.8 pg (28.0-34. 0) L 12/23/19 03:59 MCHC 29.9 g/dL (30.0-3 6.0) L 12/23/19 03:59 RDW 19.9 % (12.1-15.1 ) H 12/23/19 03:59 Plt Count 208 10^3/cmm (130 -400) 12/23/19 03:59 MPV 10.0 fL (7.4-10.4 ) 12/23/19 03:59 Neut % (Auto) 84.8 % 12/23/19 03:59 Lymph % (Auto) 5.6 % 12/23/19 03:59 [place] % (Auto) 5.2 % 12/23/19 03:59 Eos % (Auto) 0.1 % 12/23/19 03:59 Baso % (Auto) 0.2 % 12/23/19 03:59 Neut # (Auto) 16.04 10^3/uL (1. 8-7.7) H 12/23/19 03:59 Lymph # (Auto) 1.1 10^3/uL (0.8- 4.8) 12/23/19 03:59 [place] # (Auto) 1.0 10^3/uL (0.2- 0.9) H 12/23/19 03:59 Eos # (Auto) 0.0 10^3/uL (0.0- 0.8) 12/23/19 03:59 Baso # (Auto) 0.0 10^3/uL (0.0- 0.1) 12/23/19 03:59 Nucleated RBC % (a uto) 0 % 12/23/19 03:59 Nucleated RBCs # 0.0 /100WBC 12/23/19 03:59 Specimen Type Arterial 12/09/19 09:29 Sample Site Brachial, left 12/09/19 09:29 ABG pH 7.45 (7.35-7.45) 12/09/19 09:29 ABG pCO2 38.8 mmHg (35-45) 12/09/19 09:29 ABG pO2 80.4 mmHg (80.0-1 00.0) 12/09/19 09:29 ABG HCO3 27.0 mmol/L (22-2 6) H 12/09/19 09:29 ABG O2 Saturation 97.2 12/09/19 09:29 ABG Base Excess 2.9 mmol/L (-2.0- 2.0) H 12/09/19 09:29 Zafar Test N/a 12/09/19 09:29 A-a O2 Gradient 16.7 mmHg (5-10) H 12/09/19 09:29 Hematocrit 41.6 % (42-52) L 12/09/19 09:29 Hgb O2 Saturation 95.3 % (95-100) 12/09/19 09:29 Carboxyhemoglobin 1.1 %THgb (0.4-20 .1) 12/09/19 09:29 Methemoglobin 0.8 % (0.4-1.5) 12/09/19 09:29 Total Hemoglobin 13.6 g/dL (14-18) L 12/09/19 09:29 Sodium 136.0 mmol/L (131 -143) 12/09/19 09:29 Potassium 3.8 mmol/L (3.5-5 .0) 12/09/19 09:29 Glucose 134.0 mg/dL (70-1 15) H 12/09/19 09:29 Ionized Calcium 1.3 mmol/L (1.1-1 .4) 12/09/19 09:29 O2 Delivery Device Nc 12/09/19 09:29 O2 Liters/Min 4.0 % 12/09/19 09:29 FiO2 36.0 % 12/09/19 09:29 Photo Machine Operator ID glc 12/09/19 09:29 Sodium 138 mmol/L (136-1 45) 12/23/19 03:59 Potassium 4.7 mmol/L (3.5-5 .1) 12/23/19 03:59 Chloride 101 mmol/L (98-10 7) 12/23/19 03:59 Carbon Dioxide 30 mmol/L (22-29) H 12/23/19 03:59 Anion Gap 11.7 (5-19) 12/23/19 03:59 BUN 30 mg/dL (8-23) H 12/23/19 03:59 Creatinine 0.7 mg/dL (0.7-1. 2) 12/23/19 03:59 GFR Calculation 111.5 mL/min (90- 130) 12/23/19 03:59 Glucose 138 mg/dL (65-115 ) H 12/23/19 03:59 Calculated Osmolal ity 285 mOsm/kg (285- 295) 12/23/19 03:59 Lactate 2.4 mmol/L (0.5-2 .2) H 11/30/19 08:38 Calcium 8.8 mg/dL (8.5-10 .5) 12/23/19 03:59 Phosphorus 2.8 mg/dL (2.5-4. 5) 12/17/19 03:43 Magnesium 2.5 mg/dL (1.7-2. 3) H 12/14/19 04:06 Total Bilirubin 0.2 mg/dL (0.15-1 .2) 12/22/19 05:35 AST 18 U/L (0-40) 12/22/19 05:35 ALT 34 U/L (0-41) 12/22/19 05:35 Alkaline Phosphata se 117 IU/L (40-130) 12/22/19 05:35 Lactate Dehydrogen ase 200 U/L (135-225) 12/20/19 07:11 Troponin T Baselin e 6 ng/L (0-15) 12/14/19 09:30 Troponin T 120 Min [place] 6.00 ng/L (0-15) 12/14/19 11:28 Delta Troponin T 0 ABS# (0-10) 12/14/19 11:28 Troponin T Hi Sens 6Hr 6.00 ng/L (0-15) 12/14/19 15:53 Troponin T Hi Sens 6Hr Delta 0 ng/L (0-12) 12/14/19 15:53 C-React Prot High Sens < 0.150 mg/dL (0. 0-0.3) 12/20/19 07:11 NT-Pro-B Natriuret Pep 228 pg/mL (0-125) H 12/20/19 07:11 Total Protein 6.3 g/dL (6.6-8.7 ) L 12/22/19 05:35 Albumin 3.5 g/dL (3.5-5.2 ) 12/22/19 05:35 Globulin 2.8 g/dL (1.3-4.6 ) 12/22/19 05:35 Urine Color Yellow (Yellow) 11/30/19 11:27 Urine Appearance Clear (CLEAR) 11/30/19 11:27 Urine pH 7 (5-7) 11/30/19 11:27 Ur Specific Gravit y 1.000 (1.005-1.0 30) L 11/30/19 11:27 Urine Protein Neg (Negative) 11/30/19 11:27 Urine Glucose (UA) Norm (Normal) 11/30/19 11:27 Urine Ketones Negative (Negati ve) 11/30/19 11:27 Urine Blood Neg (Negative) 11/30/19 11:27 Urine Nitrate Negative (Negati ve) 11/30/19 11:27 Urine Bilirubin Neg (NEGATIVE) 11/30/19 11:27 Urine Urobilinogen Norm mg/dL (Negat hafsa) 11/30/19 11:27 Ur Leukocyte Tracie ase Negative (Negati ve) 11/30/19 11:27 Vancomycin Trough 13.1 ug/mL (10-15 ) 12/05/19 13:20 Digoxin 1.0 ng/mL (0.6-1. 2) 12/20/19 07:11 SARS-CoV-2 Ag (Rap id) Negative (Negati ve) 11/30/19 11:38 Blood Type O Positive 12/01/19 08:26 Rho(D) Type Positive 12/01/19 08:26 Antibody Screen Negative 12/01/19 08:26 Crossmatch See Detail 12/01/19 08:26 Imaging^: CT Chest: Radiologist's impression: 1. No pulmonary embolism. 2. Continued slow improvement of the dense neoplastic consolidation in the RIGHT upper lobe with volume loss and extension to encase the RIGHT hilar structures. 3. Diffuse worsening of opacifications throughout the LEFT lung consistent with superimposed pneumonia. 4. Mild diffuse esophageal mucosal thickening is similar to the prior study Echo: My impression: Echocardiogram done on 11/07/2019 revealed Possibly normal LV size and ejection fraction. Aortic valve appears to be stenotic. Possibly normal RV size and ejection fraction. No pericardial effusion Technically very limited study. No previous study is available for comparison. CXR: Radiologist's impression: Chest x-ray done on 12/14/2019 revealed Stable right perihilar and upper lobe mass lesion compared to prior. 2. Stable right apical pleural thickening and interstitial congestion. 3. Chronic diffuse interstitial lung densities left mid and lower lobe. 4. Postsurgical hardware cervical spine and left clavicle 5. Left central line is in good position. 5. Elevation right hemidiaphragm, right lung volume loss EKG^: EKG 1: My Interpretation: Sinus tachycardia with rate 110 bpm. Minimal left axis deviation. Diffuse nonspecific ST-T changes. Possible left atrial enlargement. Patient apparently had several episodes of atrial flutter/fibrillation on the telemetry, based on my review. All the EKGs that are available in the chart shows sinus rhythm/tachycardia A&P Assessment and plan (1) Intermittent atrial fibrillation: Because of the symptomatic atrial fibrillation with rapid ventricular rate, I may start the patient on flecainide 50 mg p.o. now and twice daily. Will discontinue the digoxin. Continue on the metoprolol. We will be closely monitoring the rhythm. Status: Acute (2) Squamous cell lung cancer: Management as per the oncology service. Status: Chronic Qualifiers: Laterality: right Qualified Code(s): C34.91 - Malignant neoplasm of unspecified part of right bronchus or lung (3) Anemia: Her hemoglobin seems to be fairly stable. Continue monitoring hemoglobin and hematocrit Status: Acute Qualifiers: Anemia type: unspecified type Qualified Code(s): D64.9 - Anemia, unspecified (4) History of pulmonary embolism: May continue on the current measures. Status: Acute (5) Obstructive pneumonia: Continue aggressive management as per the primary Status: Acute Additional A&P Information Based on the patient clinical progress, further recommendations will be made. Thank you for the opportunity to eval this patient make these recommendations. Coding Level of Care Code Acute Compression Molding Machine Tender for Padmini Killian Diagnoses Intermittent atrial fibrillation I48.0 Squamous cell lung cancer C34.91 Laterality: right Anemia D64.9 Anemia type: unspecified type History of pulmonary embolism Z86.711 Obstructive pneumonia J18.9
--- NOTE | 2019-12-23 09:35 | PC.NURSE ---
BP rechecked, 91/67. Dr. Gutierrez notified. Physician gave verbal order to administer 250 ml NS bolus over 30 minutes. RBVO. Physician to adjust scheduled medications.
[2019-12-23] MEDS: sodium chloride 0.9% 250 ML 500 ML IV (09:46)
[2019-12-23] MEDS: flecainide 100 mg Tablet 50 MG PO ×2 (10:22→22:08)
--- NOTE | 2019-12-23 15:05 | PC.OT ---
Addendum entered by Cuate Obrien 12/23/19 15:07: Co- signature : Carleen LEZAMA Original Note: Ot treatment attempted. Nursing requests OT treatment be withheld at this time secondary to pt displaying unstable heart rate. Will attempt to resume tx again tomorrow.
[2019-12-23] MEDS: oxyCODONE-APAP 5-325 mg Tablet 1 TAB PO (15:31)
--- NOTE | 2019-12-23 17:00 | PC.NURSE ---
Evening metoprolol administration clarified with Dr. Gutierrez, telephone RBVO received to administer metoprolol 25 BID. Nurse to continue to monitor.
[2019-12-23] MEDS: metoprolol tartrate 25 mg Tablet PO (17:12)
--- NOTE | 2019-12-23 18:26 | PC.NURSE ---
Shift Summary No further acute events throughout shift. O2 titrated as tolerated per RT. Patient assisted to side of bed for dinner, refused to get in chair. Patient tolerated well. No further needs identified at this time. Nurse to continue to monitor.
--- NOTE | 2019-12-23 19:25 | PC.NURSE ---
Rounding: Patient resting in bed. Patient alert and oriented denies any pain. Will continue to monitor.
[2019-12-23] MEDS: zolpidem 5 mg Tablet PO (22:07)
[2019-12-23] MEDS: ALPRAZolam 0.25 mg Tablet 0.125 MG PO (22:09)
[2019-12-23] MEDS: OLANZapine 5 mg TABLET PO (22:09)
[2019-12-23] MEDS: tamsulosin 0.4 mg Capsule PO (22:09)
[2019-12-23] MEDS: OLANZapine 10 mg TABLET PO (22:09)
[2019-12-24] VITALS (14 sets, daily range): BP systolic 86–121; BP diastolic 56–79; PULSE 92–115; RESP 16–38; TEMP 36.6–37; O2SAT 88–99; BMI 19.3
[2019-12-24] MEDS: cefepime 2,000 MG in sodium chloride 0.9% (plus) 50 ML 100 MG IV ×2 (03:28→14:28)
[2019-12-24 04:48] LABS: Basophils % 0.2 %; Eosinophils % 0.2 %; Hematocrit 36.2 % (42.0-52.0); Hemoglobin 10.6 g/dL (11.7-16.6); Lymphocytes # 1.1 10^3/uL (0.8-4.8); Lymphocytes % 6.3 %; Mean Corpuscular HGB Conc 29.3 g/dL (30.0-36.0); Mean Corpuscular Volume 92.3 fL (80-94); Mean Platelet Volume 10.7 fL (7.4-10.4); Monocytes # 0.6 10^3/uL (0.2-0.9); Monocytes % 3.8 %; Neutrophils # 14.25 10^3/uL (1.8-7.7); Nucleated Red Blood Cells % 0 %; Platelet Count 237 10^3/cmm (130-400); Red Blood Count 3.92 10^6/uL (4.1-5.3); Red Cell Distribution Width 20.3 % (12.1-15.1); White Blood Count 16.8 10^3/uL (4.0-10.0)
[2019-12-24 05:45] LABS: Alanine Aminotransferase 38 U/L (0-41); Albumin Level 3.3 g/dL (3.5-5.2); Alkaline Phosphatase 112 IU/L (40-130); Anion Gap 12.7 (5-19); Aspartate Amino Transferase 23 U/L (0-40); Blood Urea Nitrogen 30 mg/dL (8-23); Calcium 8.3 mg/dL (8.5-10.5); Carbon Dioxide 27 mmol/L (22-29); Chloride 101 mmol/L (98-107); Globulin 2.5 g/dL (1.3-4.6); Glomerular Filtration Rate 133.2 mL/min (90-130); Glucose 135 mg/dL (65-115); Magnesium 2.2 mg/dL (1.7-2.3); NT Pro B Type Natriuretic Pept 303 pg/mL (0-125); Osmolality Calculated 281 mOsm/kg (285-295); Phosphorus 3.9 mg/dL (2.5-4.5); Potassium 4.7 mmol/L (3.5-5.1); Sodium 136 mmol/L (136-145); Total Bilirubin 0.2 mg/dL (0.15-1.2); Total Protein 5.8 g/dL (6.6-8.7)
--- NOTE | 2019-12-24 07:00 | PC.NURSE ---
Patient assisted to chair this am. o2 saturations were 96% on 3.5 L while resting. Sats dropped to mid 80s with activity. Upon resting in chair, oxygen saturations recovered without titrating o2 up. Nurse to continue to monitor.
--- NOTE | 2019-12-24 07:46 | PM.PN ---
Subjective Subjective: Interval history: The patient's heart rate has been better controlled overnight with the change to flecainide. He has had no further rapid heartbeat problems. The patient's oxygen levels were decreased to 3.5 L overnight and the patient did well with this while in bed. This morning with getting the patient up to the chair, he became very dyspneic and his oxygen levels dropped to the mid 80s. His oxygen had to be turned up with this. He denies any active chest pains. Medications: Reviewed: Yes Vitals/I&O/Wt Last Vital Signs Temp 98.1 F 12/24/19 06:55 Pulse 114 H 12/24/19 06:55 Resp 26 H 12/24/19 06:55 BP 121/79 12/24/19 06:55 Pulse Ox 96 12/24/19 06:55 12/23/19 12/24/19 12/24/19 22:59 06:59 14:59 Intake Total 650 / 1740 350 / 2090 Output Total 550 / 825 650 / 1475 Balance 100 / 915 -300 / 615 Weight last 48 hrs Weight 123 lb 6.4 oz Weight 123 lb 6.4 oz Physical Exam Narrative: EXAM NARRATIVE: General: Alert and oriented x3. On nasal cannula oxygen at 3.5 L/min. Cardiac: Tachycardic rate with irregular rhythm. Lungs: Decreased air entry in the right base with scattered bilateral wheezes and rhonchi in the left lower lungs. Abdomen: Soft, nontender Extremities: Trace edema Data : 12/24/19 04:13 12/24/19 04:13 A&P Additional A&P Information 1. Bilateral pneumonia - The patient is currently being treated for pneumonia with cefepime and Bactrim. He was on Levaquin and Zosyn for 9 days without significant improvement, so was changed to imipenem with Bactrim and Levaquin on 12/08/2019 to help cover for atypicals or resistant strains. The imipenem has been switched to cefepime on 12/12/2019. Levaquin was discontinued on 12/23/2019. The underlying cause is likely secondary to postobstructive pneumonia from his cancer. New sputum sample did not show a specific bacteria as the source. Pneumonitis is likely playing a part in this process as well. 2. Anemia -the patient's hemoglobin is stable. 3. Hypoxia -the patient's oxygen needs have been decreasing and he is now on 3.5L via nasal cannula at rest but needs 5 to 6 L after getting up to the chair at bedside. CT scan did Not show any signs of pulmonary embolism, however continues to show signs of pneumonia as well as advancing cancer. Continue with flutter valve. He is showing some signs of improvement in this area and hopefully his oxygen levels can be gradually weaned. He is still significantly short of breath even with getting from the bed to bedside chair. 4. Metastatic lung cancer -the patient's tumor has shrunk with radiation treatments. There are scattered nodules present though. I am concerned that the cancer is advancing clinically. I spoke with the patient regarding hospice on 12/12/2019 as well as options for continuing with treatment and the patient will think about hospice, however for now would prefer to continue to try antibiotic treatments. The patient is aware that his overall prognosis is poor. 5. Pain control -the patient's pain seems to be well controlled with Percocet. Continue with this medication and change if needed. 6. Nausea -improved at this time. The patient is able to tolerate food by mouth well. 7. Thrush -continue with nystatin to swish and swallow for treatment. 8. Elevated digoxin level -digoxin has now been discontinued. 9. Atrial flutter with RVR -appreciate Dr. Gutierrez's assistance with this patient. He has changed the patient to flecainide and discontinue digoxin. He is continued metoprolol. His heart rate is doing well with these changes so far. 10. Prophylaxis -the patient is currently on Eliquis for A. fib prophylaxis and this should cover him for DVT prophylaxis as well. Attestations Medical Necessity Statement*: The patient continues to have need for inpatient monitoring due to significant hypoxia. His oxygen needs are starting to decrease gradually. He will need to be able to ambulate better without significant desaturation prior to discharge. Coding Level of Care Code Acute Salesforce Administrator for Padmini Killian
[2019-12-24] MEDS: sertraline 100 mg Tablet 200 MG PO (08:13)
[2019-12-24] MEDS: sulfamethoxazole-trimeth DS 160-800 mg Tablet 1 TAB PO ×2 (08:13→17:22)
[2019-12-24] MEDS: apixaban 5 mg Tablet 2.5 MG PO ×2 (08:14→17:22)
[2019-12-24] MEDS: guaiFENesin 600 mg Tablet PO ×2 (08:14→17:22)
[2019-12-24] MEDS: multivitamin therapeutic Tablet 1 TAB PO (08:14)
[2019-12-24] MEDS: pantoprazole DR 40 mg Tablet PO (08:14)
[2019-12-24] MEDS: sennosides-docusate Tablet 1 TAB PO ×2 (08:14→17:22)
[2019-12-24] MEDS: metoprolol tartrate 25 mg Tablet PO ×2 (08:14→17:22)
[2019-12-24] MEDS: oxyCODONE-APAP 5-325 mg Tablet 1 TAB PO (08:17)
--- NOTE | 2019-12-24 08:39 | P.PN_ITS ---
Subjective Subjective: Interval history: This patient is feeling okay. He has no recurrence of the atrial flutter/fibrillation, since yesterday morning. He still has the shortness of breath with activities. No orthopnea. He was requiring oxygen of 6 L/min by nasal cannula. Currently he is back to 5 L. Medications: Reviewed: Yes Medication Review Details: Current Medications Alprazolam (Xanax) 0.125 mg PO TID PRN PRN Reason: ANXIETY Last Admin: 12/23/19 22:09 Dose: 0.125 mg Documented by: Apixaban (Eliquis) 2.5 mg PO BID [facility] Last Admin: 12/24/19 08:14 Dose: 2.5 mg Documented by: Flecainide Acetate (Tambocor) 50 mg PO Q12H [facility] Last Admin: 12/23/19 22:08 Dose: 50 mg Documented by: Guaifenesin (Mucinex) 600 mg PO BID [facility] Last Admin: 12/24/19 08:14 Dose: 600 mg Documented by: Cefepime HCl 2,000 mg/ Sodium (Chloride) 50 mls @ 100 mls/hr IV Q12H [facility]; Protocol Last Admin: 12/24/19 03:28 Dose: 100 mls/hr Documented by: Levalbuterol HCl (Xopenex) 1.25 mg INHALATION Q6H.RESPIRATORY [facility] Last Admin: 12/24/19 04:15 Dose: Not Given Documented by: Methylprednisolone Sodium Succinate (Solu-Medrol) 40 mg IVP Q12H [facility] Last Admin: 12/23/19 22:10 Dose: 40 mg Documented by: Metoprolol Tartrate (Lopressor) 25 mg PO BID [facility] Last Admin: 12/24/19 08:14 Dose: 25 mg Documented by: Multivitamins Therapeutic (Multivitamin Tab) 1 tab PO DAILY [facility] Last Admin: 12/24/19 08:14 Dose: 1 tab Documented by: Olanzapine (Zyprexa) 10 mg PO BEDTIME [facility] Last Admin: 12/23/19 22:09 Dose: 10 mg Documented by: Olanzapine (Zyprexa) 5 mg PO BEDTIME [facility] Last Admin: 12/23/19 22:09 Dose: 5 mg Documented by: Ondansetron HCl (Zofran) 4 mg IVP Q6H PRN PRN Reason: vomiting, or N/V if npo Last Admin: 12/18/19 11:48 Dose: 4 mg Documented by: Oxycodone/Acetaminophen (Percocet 5-325 Mg) 1 tab PO Q4H PRN PRN Reason: MODERATE PAIN Last Admin: 12/24/19 08:17 Dose: 1 tab Documented by: Pantoprazole Sodium (Protonix) 40 mg PO DAILY [facility] Last Admin: 12/24/19 08:14 Dose: 40 mg Documented by: Prochlorperazine (Compazine) 10 mg PO Q4H PRN PRN Reason: mild nausea Promethazine HCl (Phenergan) 25 mg PO Q6H PRN PRN Reason: NAUSEA Senna/Docusate Sodium (Senna-S) 1 tab PO BID [facility] Last Admin: 12/24/19 08:14 Dose: 1 tab Documented by: Sertraline HCl (Zoloft) 200 mg PO DAILY [facility] Last Admin: 12/24/19 08:13 Dose: 200 mg Documented by: Tamsulosin HCl (Flomax) 0.4 mg PO BEDTIME [facility] Last Admin: 12/23/19 22:09 Dose: 0.4 mg Documented by: Trimethoprim/Sulfamethoxazole (Bactrim Ds) 1 tab PO BID [facility]; Protocol Last Admin: 12/24/19 08:13 Dose: 1 tab Documented by: Zolpidem Tartrate (Ambien) 5 mg PO BEDTIME PRN PRN Reason: ANXIETY Last Admin: 12/23/19 22:07 Dose: 5 mg Documented by: Vitals/I&O/Wt Last Vital Signs Temp 98.1 F 12/24/19 06:55 Pulse 114 H 12/24/19 06:55 Resp 26 H 12/24/19 08:17 BP 121/79 12/24/19 06:55 Pulse Ox 89 L 12/24/19 08:17 12/23/19 12/24/19 12/24/19 22:59 06:59 14:59 Intake Total 650 / 1740 350 / 2090 240 / 240 Output Total 550 / 825 650 / 1475 375 / 375 Balance 100 / 915 -300 / 615 -135 / -135 Weight last 48 hrs Weight 123 lb 6.4 oz Weight 123 lb 6.4 oz Physical Exam Narrative: EXAM NARRATIVE: GENERAL: The patient is alert and oriented times three. Not in any acute distress. Somewhat emaciated and ill looking HEENT: Mild pallor, icterus or lymphadenopathy. NECK: Trachea appears to be central. No masses noted. No JVD or thyromegaly appreciated. No carotid bruit. RESPIRATORY: Chest is symmetrical. No intercostals muscle retraction or any accessory muscle activation. There is no chest wall tenderness. Breath sounds are heard bilaterally. Few coarse crackles at the right upper zone, posteriorly HEART: The PMI is in the 5th left intercostals space just inside the midclavicular line. No palpable precordial events. S1 and S2 are normal. No S3 or S4 heard. No pericardial rub or any click heard. ABDOMEN: No vessel pulsations or distention. No tenderness. No organomegaly appreciated. No abdominal bruit. Bowel sounds are normally heard. : Deferred. RECTAL: Deferred. LYMPHATIC: No lymphadenopathy noted in the neck or groin. EXTREMITIES: No edema or cyanosis. No clubbing. The pulses are symmetrical bilaterally. The radial, femoral, dorsalis pedis and the posterior tibial pulses are palpated and found to be in good volume and amplitude. MUSCULOSKELETAL: No acute joint deformities or swelling SKIN: No significant rashes or ecchymosis NEUROPSYCHIATRIC: The patient is alert and oriented x3. Appears to be in a good mood. The higher functions are grossly within normal limits. No tremors or rigidity noted. Data : 12/24/19 04:13 12/24/19 04:13 Other Labs: Laboratory Last Values WBC 16.8 10^3/uL (4.0-10.0) H 12/24/19 04:13 RBC 3.92 10^6/uL (4.1-5.3) L 12/24/19 04:13 Hgb 10.6 g/dL (11.7-16.6) L 12/24/19 04:13 Hct 36.2 % (42.0-52.0) L 12/24/19 04:13 MCV 92.3 fL (80-94) 12/24/19 04:13 MCH 27.0 pg (28.0-34.0) L 12/24/19 04:13 MCHC 29.3 g/dL (30.0-36.0) L 12/24/19 04:13 RDW 20.3 % (12.1-15.1) H 12/24/19 04:13 Plt Count 237 10^3/cmm (130-400) 12/24/19 04:13 MPV 10.7 fL (7.4-10.4) H 12/24/19 04:13 Neut % (Auto) 85.0 % 12/24/19 04:13 Lymph % (Auto) 6.3 % 12/24/19 04:13 [place] % (Auto) 3.8 % 12/24/19 04:13 Eos % (Auto) 0.2 % 12/24/19 04:13 Baso % (Auto) 0.2 % 12/24/19 04:13 Neut # (Auto) 14.25 10^3/uL (1.8-7.7) H 12/24/19 04:13 Lymph # (Auto) 1.1 10^3/uL (0.8-4.8) 12/24/19 04:13 [place] # (Auto) 0.6 10^3/uL (0.2-0.9) 12/24/19 04:13 Eos # (Auto) 0.0 10^3/uL (0.0-0.8) 12/24/19 04:13 Baso # (Auto) 0.0 10^3/uL (0.0-0.1) 12/24/19 04:13 Nucleated RBC % (auto) 0 % 12/24/19 04:13 Nucleated RBCs # 0.0 /100WBC 12/24/19 04:13 Specimen Type Arterial 12/09/19 09:29 Sample Site Brachial, left 12/09/19 09:29 ABG pH 7.45 (7.35-7.45) 12/09/19 09:29 ABG pCO2 38.8 mmHg (35-45) 12/09/19 09: ABG pO2 80.4 mmHg (80.0-100.0) 12/09/19 09:29 ABG HCO3 27.0 mmol/L (22-26) H 12/09/19 09:29 ABG O2 Saturation 97.2 12/09/19 09:29 ABG Base Excess 2.9 mmol/L (-2.0-2.0) H 12/09/19 09:29 Zafar Test N/a 12/09/19 09:29 A-a O2 Gradient 16.7 mmHg (5-10) H 12/09/19 09:29 Hematocrit 41.6 % (42-52) L 12/09/19 09:29 Hgb O2 Saturation 95.3 % (95-100) 12/09/19 09:29 Carboxyhemoglobin 1.1 %THgb (0.4-20.1) 12/09/19 09:29 Methemoglobin 0.8 % (0.4-1.5) 12/09/19 09:29 Total Hemoglobin 13.6 g/dL (14-18) L 12/09/19 09:29 Sodium 136.0 mmol/L (131-143) 12/09/19 09:29 Potassium 3.8 mmol/L (3.5-5.0) 12/09/19 09:29 Glucose 134.0 mg/dL (70-115) H 12/09/19 09:29 Ionized Calcium 1.3 mmol/L (1.1-1.4) 12/09/19 09:29 O2 Delivery Device Nc 12/09/19 09:29 O2 Liters/Min 4.0 % 12/09/19 09:29 FiO2 36.0 % 12/09/19 09:29 Contract Writer ID [email or web address] 12/09/19 09:29 Sodium 136 mmol/L (136-145) 12/24/19 04:13 Potassium 4.7 mmol/L (3.5-5.1) 12/24/19 04:13 Chloride 101 mmol/L (98-107) 12/24/19 04:13 Carbon Dioxide 27 mmol/L (22-29) 12/24/19 04:13 Anion Gap 12.7 (5-19) 12/24/19 04:13 BUN 30 mg/dL (8-23) H 12/24/19 04:13 Creatinine 0.6 mg/dL (0.7-1.2) L 12/24/19 04:13 GFR Calculation 133.2 mL/min (90-130) H 12/24/19 04:13 Glucose 135 mg/dL (65-115) H 12/24/19 04:13 Calculated Osmolality 281 mOsm/kg (285-295) L 12/24/19 04:13 Lactate 2.4 mmol/L (0.5-2.2) H 11/30/19 08:38 Calcium 8.3 mg/dL (8.5-10.5) L 12/24/19 04:13 Phosphorus 3.9 mg/dL (2.5-4.5) 12/24/19 04:13 Magnesium 2.2 mg/dL (1.7-2.3) 12/24/19 04:13 Total Bilirubin 0.2 mg/dL (0.15-1.2) 12/24/19 04:13 AST 23 U/L (0-40) 12/24/19 04:13 ALT 38 U/L (0-41) 12/24/19 04:13 Alkaline Phosphatase 112 IU/L (40-130) 12/24/19 04:13 Lactate Dehydrogenase 200 U/L (135-225) 12/20/19 07:11 Troponin T Baseline 6 ng/L (0-15) 12/14/19 09:30 Troponin T 120 Minute 6.00 ng/L (0-15) 12/14/19 11:28 Delta Troponin T 0 ABS# (0-10) 12/14/19 11:28 Troponin T Hi Sens 6Hr 6.00 ng/L (0-15) 12/14/19 15:53 Troponin T Hi Sens 6Hr Delta 0 ng/L (0-12) 12/14/19 15:53 C-React Prot High Sens 0.260 mg/dL (0.0-0.3) 12/24/19 04:13 NT-Pro-B Natriuret Pep 303 pg/mL (0-125) H 12/24/19 04:13 Total Protein 5.8 g/dL (6.6-8.7) L 12/24/19 04:13 Albumin 3.3 g/dL (3.5-5.2) L 12/24/19 04:13 Globulin 2.5 g/dL (1.3-4.6) 12/24/19 04:13 Urine Color Yellow (Yellow) 11/30/19 11:27 Urine Appearance Clear (CLEAR) 11/30/19 11:27 Urine pH 7 (5-7) 11/30/19 11:27 Ur Specific [place] 1.000 (1.005-1.030) L 11/30/19 11:27 Urine Protein Neg (Negative) 11/30/19 11:27 Urine Glucose (UA) Norm (Normal) 11/30/19 11:27 Urine Ketones Negative (Negative) 11/30/19 11:27 Urine Blood Neg (Negative) 11/30/19 11:27 Urine Nitrate Negative (Negative) 11/30/19 11:27 Urine Bilirubin Neg (NEGATIVE) 11/30/19 11:27 Urine Urobilinogen Norm mg/dL (Negative) 11/30/19 11:27 Ur Leukocyte Esterase Negative (Negative) 11/30/19 11:27 Vancomycin Trough 13.1 ug/mL (10-15) 12/05/19 13:20 Digoxin 1.0 ng/mL (0.6-1.2) 12/20/19 07:11 SARS-CoV-2 Ag (Rapid) Negative (Negative) 11/30/19 11:38 Blood Type O Positive 12/01/19 08:26 Rho(D) Type Positive 12/01/19 08:26 Antibody Screen Negative 12/01/19 08:26 Crossmatch See Detail 12/01/19 08:26 A&P Assessment and plan (1) Intermittent atrial fibrillation: Patient is tolerating flecainide so far well. He has no side effects. Blood pressure seems to be stable. May continue on this medication at this time. Status: Acute (2) Squamous cell lung cancer: Management as per the oncology service. Status: Chronic Qualifiers: Laterality: right Qualified Code(s): C34.91 - Malignant neoplasm of unspecified part of right bronchus or lung (3) Anemia: Her hemoglobin seems to be fairly stable. Continue monitoring hemoglobin and hematocrit Status: Acute Qualifiers: Anemia type: unspecified type Qualified Code(s): D64.9 - Anemia, unspecified (4) History of pulmonary embolism: May continue on the current measures. Status: Acute (5) Obstructive pneumonia: Continue aggressive management as per the primary Status: Acute Additional A&P Information Since the rhythm is stable, patient may not require any further investigation at this point. Advised to continue on the current medications. Attestations Medical Necessity Statement*: Disposition as per the primary Coding Level of Care Code Acute Chronic Disease Epidemiologist for [facility] Fwd Diagnoses Intermittent atrial fibrillation I48.0 Squamous cell lung cancer C34.91 Laterality: right Anemia D64.9 Anemia type: unspecified type History of pulmonary embolism Z86.711 Obstructive pneumonia J18.9
--- NOTE | 2019-12-24 08:52 | PC.NURSE ---
While up in chair, o2 sats maintained in mid 80s. O2 increased to 6L NC. O2 sats fluctuated between 88-92% while patient ate breakfast. Dr. [place] notified of increased oxygen requirement with activity. Verbal order received to keep O2 sats 90% or greater. Patient assisted back to bed following breakfast. o2 sats 98% on 6L o2. Nurse to titrate down as tolerated while resting.
[2019-12-24] MEDS: flecainide 100 mg Tablet 50 MG PO ×2 (09:18→20:25)
[2019-12-24] MEDS: levalbuterol 1.25 mg/3 mL Neb INHALATION ×3 (09:22→20:20)
--- NOTE | 2019-12-24 18:49 | PC.NURSE ---
Shift Summary Rest of shift uneventful. O2 requirements fluctuated between 3-6 L NC. Patient refused to get OOB for dinner or lunch. Patient worked with OT this pm and tolerated sponge bath well. VSS, Nurse to continue to monitor.
--- NOTE | 2019-12-24 19:10 | PC.NURSE ---
Rounding: Patient resting in bed watching TV. Patient is alert and oriented and denies any pain at this time. Will continue to monitor.
[2019-12-24] MEDS: ALPRAZolam 0.25 mg Tablet 0.125 MG PO (20:23)
[2019-12-24] MEDS: tamsulosin 0.4 mg Capsule PO (20:23)
[2019-12-24] MEDS: zolpidem 5 mg Tablet PO (20:23)
[2019-12-24] MEDS: OLANZapine 5 mg TABLET PO (20:23)
[2019-12-24] MEDS: OLANZapine 10 mg TABLET PO (20:23)
--- NOTE | 2019-12-24 20:59 | PM.PN ---
Subjective Medications: Reviewed: Yes Medication Review Details: Current Medications Alprazolam (Xanax) 0.125 mg PO TID PRN PRN Reason: ANXIETY Last Admin: 12/24/19 20:23 Dose: 0.125 mg Documented by: Apixaban (Eliquis) 2.5 mg PO BID [facility] Last Admin: 12/25/19 08:29 Dose: 2.5 mg Documented by: Flecainide Acetate (Tambocor) 50 mg PO Q12H [facility] Last Admin: 12/25/19 09:12 Dose: 50 mg Documented by: Guaifenesin (Mucinex) 600 mg PO BID [facility] Last Admin: 12/25/19 08:28 Dose: 600 mg Documented by: Cefepime HCl 2,000 mg/ Sodium (Chloride) 50 mls @ 100 mls/hr IV Q12H [facility]; Protocol Last Infusion: 12/25/19 15:41 Dose: Infused Documented by: Levalbuterol HCl (Xopenex) 1.25 mg INHALATION Q6H.RESPIRATORY [facility] Last Admin: 12/25/19 08:08 Dose: 1.25 mg Documented by: Methylprednisolone Sodium Succinate (Solu-Medrol) 40 mg IVP Q12H [facility] Last Admin: 12/25/19 09:13 Dose: 40 mg Documented by: Metoprolol Tartrate (Lopressor) 25 mg PO BID [facility] Last Admin: 12/25/19 08:30 Dose: 25 mg Documented by: Multivitamins Therapeutic (Multivitamin Tab) 1 tab PO DAILY [facility] Last Admin: 12/25/19 08:29 Dose: 1 tab Documented by: Olanzapine (Zyprexa) 10 mg PO BEDTIME [facility] Last Admin: 12/24/19 20:23 Dose: 10 mg Documented by: Olanzapine (Zyprexa) 5 mg PO BEDTIME [facility] Last Admin: 12/24/19 20:23 Dose: 5 mg Documented by: Ondansetron HCl (Zofran) 4 mg IVP Q6H PRN PRN Reason: vomiting, or N/V if npo Last Admin: 12/18/19 11:48 Dose: 4 mg Documented by: Oxycodone/Acetaminophen (Percocet 5-325 Mg) 1 tab PO Q4H PRN PRN Reason: MODERATE PAIN Last Admin: 12/25/19 08:32 Dose: 1 tab Documented by: Pantoprazole Sodium (Protonix) 40 mg PO DAILY [facility] Last Admin: 12/25/19 08:29 Dose: 40 mg Documented by: Prochlorperazine (Compazine) 10 mg PO Q4H PRN PRN Reason: mild nausea Promethazine HCl (Phenergan) 25 mg PO Q6H PRN PRN Reason: NAUSEA Senna/Docusate Sodium (Senna-S) 1 tab PO BID [facility] Last Admin: 12/25/19 08:29 Dose: 1 tab Documented by: Sertraline HCl (Zoloft) 200 mg PO DAILY [facility] Last Admin: 12/25/19 08:29 Dose: 200 mg Documented by: Tamsulosin HCl (Flomax) 0.4 mg PO BEDTIME [facility] Last Admin: 12/24/19 20:23 Dose: 0.4 mg Documented by: Trimethoprim/Sulfamethoxazole (Bactrim Ds) 1 tab PO BID [facility]; Protocol Last Admin: 12/25/19 08:30 Dose: 1 tab Documented by: Zolpidem Tartrate (Ambien) 5 mg PO BEDTIME PRN PRN Reason: ANXIETY Last Admin: 12/24/19 20:23 Dose: 5 mg Documented by: Vitals/I&O/Wt Last Vital Signs Temp 98 F 12/24/19 20:00 Pulse 106 H 12/24/19 20:24 Resp 16 12/24/19 20:24 BP 92/59 12/24/19 20:00 Pulse Ox 97 12/24/19 20:24 12/24/19 12/24/19 12/24/19 06:59 14:59 22:59 Intake Total 400 / 2140 480 / 480 290 / 770 Output Total 650 / 1475 675 / 675 Balance -250 / 665 -195 / -195 290 / 95 Weight last 48 hrs Weight 123 lb 6.4 oz Weight 123 lb 6.4 oz Physical Exam Narrative: EXAM NARRATIVE: GENERAL: The patient is alert and oriented times three. Not in any acute distress. Somewhat emaciated and ill looking HEENT: Mild pallor, icterus or lymphadenopathy. NECK: Trachea appears to be central. No masses noted. No JVD or thyromegaly appreciated. No carotid bruit. RESPIRATORY: Chest is symmetrical. No intercostals muscle retraction or any accessory muscle activation. There is no chest wall tenderness. Breath sounds are heard bilaterally. Few coarse crackles at the right upper zone, posteriorly HEART: The PMI is in the 5th left intercostals space just inside the midclavicular line. No palpable precordial events. S1 and S2 are normal. No S3 or S4 heard. No pericardial rub or any click heard. ABDOMEN: No vessel pulsations or distention. No tenderness. No organomegaly appreciated. No abdominal bruit. Bowel sounds are normally heard. : Deferred. RECTAL: Deferred. LYMPHATIC: No lymphadenopathy noted in the neck or groin. EXTREMITIES: No edema or cyanosis. No clubbing. The pulses are symmetrical bilaterally. The radial, femoral, dorsalis pedis and the posterior tibial pulses are palpated and found to be in good volume and amplitude. MUSCULOSKELETAL: No acute joint deformities or swelling SKIN: No significant rashes or ecchymosis NEUROPSYCHIATRIC: The patient is alert and oriented x3. Appears to be in a good mood. The higher functions are grossly within normal limits. No tremors or rigidity noted. Data : 12/25/19 04:23 12/24/19 04:13 A&P Assessment and plan (1) Intermittent atrial fibrillation: Patient is tolerating flecainide so far well. He has no side effects. Blood pressure seems to be stable. May continue on this medication at this time. Status: Acute (2) Squamous cell lung cancer: Management as per the oncology service. Status: Chronic Qualifiers: Laterality: right Qualified Code(s): C34.91 - Malignant neoplasm of unspecified part of right bronchus or lung (3) Anemia: Her hemoglobin seems to be fairly stable. Continue monitoring hemoglobin and hematocrit Status: Acute Qualifiers: Anemia type: unspecified type Qualified Code(s): D64.9 - Anemia, unspecified (4) History of pulmonary embolism: May continue on the current measures. Status: Acute (5) Obstructive pneumonia: Continue aggressive management as per the primary Status: Acute Additional A&P Information Since the rhythm is stable, patient may not require any further investigation at this point. Advised to continue on the current medications. Coding Level of Care Code Acute Renderer for [facility] Fwd Diagnoses Intermittent atrial fibrillation I48.0 Squamous cell lung cancer C34.91 Laterality: right Anemia D64.9 Anemia type: unspecified type History of pulmonary embolism Z86.711 Obstructive pneumonia J18.9
[2019-12-25] VITALS (12 sets, daily range): BP systolic 88–110; BP diastolic 58–92; PULSE 94–127; RESP 18–27; TEMP 36.6–37.1; O2SAT 87–100
[2019-12-25] MEDS: cefepime 2,000 MG in sodium chloride 0.9% (plus) 50 ML 100 MG IV ×2 (03:03→15:11)
[2019-12-25 04:53] LABS: Basophils % 0.2 %; Eosinophils % 0.2 %; Hematocrit 34.2 % (42.0-52.0); Hemoglobin 10.2 g/dL (11.7-16.6); Lymphocytes # 1.3 10^3/uL (0.8-4.8); Lymphocytes % 8.6 %; Mean Corpuscular HGB Conc 29.8 g/dL (30.0-36.0); Mean Corpuscular Hemoglobin 26.6 pg (28.0-34.0); Mean Corpuscular Volume 89.3 fL (80-94); Mean Platelet Volume 10.2 fL (7.4-10.4); Monocytes # 0.7 10^3/uL (0.2-0.9); Monocytes % 4.3 %; Neutrophils # 12.78 10^3/uL (1.8-7.7); Neutrophils % 83.5 %; Nucleated Red Blood Cells % 0 %; Platelet Count 187 10^3/cmm (130-400); Red Blood Count 3.83 10^6/uL (4.1-5.3); Red Cell Distribution Width 19.9 % (12.1-15.1); White Blood Count 15.3 10^3/uL (4.0-10.0)
[2019-12-25] MEDS: levalbuterol 1.25 mg/3 mL Neb INHALATION ×3 (08:08→21:09)
[2019-12-25] MEDS: guaiFENesin 600 mg Tablet PO ×2 (08:28→17:13)
[2019-12-25] MEDS: pantoprazole DR 40 mg Tablet PO (08:29)
[2019-12-25] MEDS: sertraline 100 mg Tablet 200 MG PO (08:29)
[2019-12-25] MEDS: apixaban 5 mg Tablet 2.5 MG PO ×2 (08:29→17:12)
[2019-12-25] MEDS: multivitamin therapeutic Tablet 1 TAB PO (08:29)
[2019-12-25] MEDS: sennosides-docusate Tablet 1 TAB PO ×2 (08:29→17:12)
[2019-12-25] MEDS: metoprolol tartrate 25 mg Tablet PO ×2 (08:30→17:12)
[2019-12-25] MEDS: sulfamethoxazole-trimeth DS 160-800 mg Tablet 1 TAB PO ×2 (08:30→17:13)
[2019-12-25] MEDS: oxyCODONE-APAP 5-325 mg Tablet 1 TAB PO (08:32)
--- NOTE | 2019-12-25 08:42 | P.PN_ITS ---
Subjective Subjective: Interval history: The patient's continue to have significant breathing issues with getting from the bed to the chair. His oxygen levels desaturate. Overall the patient is feeling some better at rest. He is not coughing up much phlegm. He denies any chest pains at this time. He has not had any feelings of palpitations like he was before. Vitals/I&O/Wt Last Vital Signs Temp 97.9 F 12/25/19 07:30 Pulse 118 H 12/25/19 08:20 Resp 26 H 12/25/19 08:32 BP 107/92 12/25/19 07:30 Pulse Ox 90 12/25/19 08:32 12/24/19 12/25/19 12/25/19 22:59 06:59 14:59 Intake Total 290 / 770 150 / 920 240 / 240 Output Total 250 / 925 800 / 1725 Balance 40 / -155 -650 / -805 240 / 240 Weight last 48 hrs Weight 127 lb 12.8 oz Weight 123 lb 6.4 oz Physical Exam Narrative: EXAM NARRATIVE: General: Alert and oriented x3. On nasal cannula oxygen at 3.5 L/min. Cardiac: Tachycardic rate with irregular rhythm. Lungs: Decreased air entry in the right base with scattered bilateral wheezes and rhonchi in the left lower lungs. Abdomen: Soft, nontender Extremities: Trace edema Data : 12/25/19 04:23 12/24/19 04:13 A&P Additional A&P Information 1. Bilateral pneumonia - The patient is currently being treated for pneumonia and pneumonitis with cefepime and Bactrim. He was on Levaquin and Zosyn for 9 days without significant improvement, so was changed to imipenem with Bactrim and Levaquin on 12/08/2019 to help cover for atypicals or resistant strains. The imipenem has been switched to cefepime on 12/12/2019. Levaquin was discontinued on 12/23/2019. The underlying cause is likely secondary to postobstructive pneumonia from his cancer. New sputum sample did not show a specific bacteria as the source. Pneumonitis is likely playing a part in this process as well. 2. Anemia -the patient's hemoglobin is stable. 3. Hypoxia -the patient's oxygen needs have increased some to 6 L via nasal cannula. He is now able to get to the bedside chair but with significant desaturations. He is showing gradual improvement, however it is very slow. 4. Metastatic lung cancer -the patient's tumor has shrunk with radiation treatments. There are scattered nodules present though. I am concerned that the cancer is advancing clinically. I spoke with the patient regarding hospice on 12/12/2019 as well as options for continuing with treatment and the patient will think about hospice, however for now would prefer to continue to try antibiotic treatments. The patient is aware that his overall prognosis is poor. 5. Pain control -the patient's pain seems to be well controlled with Percocet. Continue with this medication and change if needed. 6. Nausea -improved at this time. The patient is able to tolerate food by mouth well. 7. Thrush -continue with nystatin to swish and swallow for treatment. 8. Elevated digoxin level -digoxin has now been discontinued. 9. Atrial flutter with RVR -I appreciate Dr. Gutierrez's assistance with this patient. He has changed the patient to flecainide and discontinued digoxin. He is continued on metoprolol. His heart rate is doing well with these changes so far. 10. Prophylaxis -the patient is currently on Eliquis for A. fib prophylaxis and this should cover him for DVT prophylaxis as well. Attestations Medical Necessity Statement*: The patient continues need inpatient care as he has significant desaturations with any exertion. Coding Level of Care Code Acute Double End Chucking Machine Operator for [facility]
--- NOTE | 2019-12-25 09:10 | PC.SOCIAL ---
IMM Updated Updated pt on Pg 2 IMM. No questions voiced. Provided pt a copy. Signed, dated, & timed copy in chart.
[2019-12-25] MEDS: flecainide 100 mg Tablet 50 MG PO ×2 (09:12→21:04)
[2019-12-25 14:56] LABS: Adenovirus Not Detected (Not Detected); Human Metapneumovirus Not Detected (Not Detected); Human Parainflu Virus 1 Not Detected (Not Detected); Human Parainflu Virus 2 Not Detected (Not Detected); Human Parainflu Virus 3 Not Detected (Not Detected); Human Rsv A Not Detected (Not Detected); Influenza A Not Detected (Not Detected); Influenza B Not Detected (Not Detected); Rhinovirus/Enterovirus Not Detected (Not Detected)
--- NOTE | 2019-12-25 17:24 | PM.PN ---
Subjective Subjective: Interval history: The patient seems to be doing okay with no chest pain or palpitations. No dizziness or syncope. Telemetry shows sinus rhythm/sinus tachycardia. Occasional PVCs. No recurrence of atrial fibrillation, since started on flecainide. Apparently his oxygenation status seems to be fluctuating. He was requiring 10 L of oxygen by nasal cannula to maintain the oxygen saturation above 90% Medications: Reviewed: Yes Medication Review Details: Current Medications Alprazolam (Xanax) 0.125 mg PO TID PRN PRN Reason: ANXIETY Last Admin: 12/24/19 20:23 Dose: 0.125 mg Documented by: Apixaban (Eliquis) 2.5 mg PO BID [facility] Last Admin: 12/25/19 17:12 Dose: 2.5 mg Documented by: Flecainide Acetate (Tambocor) 50 mg PO Q12H [facility] Last Admin: 12/25/19 09:12 Dose: 50 mg Documented by: Guaifenesin (Mucinex) 600 mg PO BID [facility] Last Admin: 12/25/19 17:13 Dose: 600 mg Documented by: Cefepime HCl 2,000 mg/ Sodium (Chloride) 50 mls @ 100 mls/hr IV Q12H [facility]; Protocol Last Infusion: 12/25/19 15:41 Dose: Infused Documented by: Levalbuterol HCl (Xopenex) 1.25 mg INHALATION Q6H.RESPIRATORY [facility] Last Admin: 12/25/19 16:48 Dose: 1.25 mg Documented by: Methylprednisolone Sodium Succinate (Solu-Medrol) 40 mg IVP Q12H [facility] Last Admin: 12/25/19 09:13 Dose: 40 mg Documented by: Metoprolol Tartrate (Lopressor) 25 mg PO BID [facility] Last Admin: 12/25/19 17:12 Dose: 25 mg Documented by: Multivitamins Therapeutic (Multivitamin Tab) 1 tab PO DAILY [facility] Last Admin: 12/25/19 08:29 Dose: 1 tab Documented by: Olanzapine (Zyprexa) 10 mg PO BEDTIME [facility] Last Admin: 12/24/19 20:23 Dose: 10 mg Documented by: Olanzapine (Zyprexa) 5 mg PO BEDTIME [facility] Last Admin: 12/24/19 20:23 Dose: 5 mg Documented by: Ondansetron HCl (Zofran) 4 mg IVP Q6H PRN PRN Reason: vomiting, or N/V if npo Last Admin: 12/18/19 11:48 Dose: 4 mg Documented by: Oxycodone/Acetaminophen (Percocet 5-325 Mg) 1 tab PO Q4H PRN PRN Reason: MODERATE PAIN Last Admin: 12/25/19 08:32 Dose: 1 tab Documented by: Pantoprazole Sodium (Protonix) 40 mg PO DAILY [facility] Last Admin: 12/25/19 08:29 Dose: 40 mg Documented by: Prochlorperazine (Compazine) 10 mg PO Q4H PRN PRN Reason: mild nausea Promethazine HCl (Phenergan) 25 mg PO Q6H PRN PRN Reason: NAUSEA Senna/Docusate Sodium (Senna-S) 1 tab PO BID [facility] Last Admin: 12/25/19 17:12 Dose: 1 tab Documented by: Sertraline HCl (Zoloft) 200 mg PO DAILY [facility] Last Admin: 12/25/19 08:29 Dose: 200 mg Documented by: Tamsulosin HCl (Flomax) 0.4 mg PO BEDTIME [facility] Last Admin: 12/24/19 20:23 Dose: 0.4 mg Documented by: Trimethoprim/Sulfamethoxazole (Bactrim Ds) 1 tab PO BID [facility]; Protocol Last Admin: 12/25/19 17:13 Dose: 1 tab Documented by: Zolpidem Tartrate (Ambien) 5 mg PO BEDTIME PRN PRN Reason: ANXIETY Last Admin: 12/24/19 20:23 Dose: 5 mg Documented by: Vitals/I&O/Wt Last Vital Signs Temp 98.4 F 12/25/19 15:15 Pulse 110 H 12/25/19 16:53 Resp 18 12/25/19 16:48 BP 110/71 12/25/19 15:15 Pulse Ox 100 12/25/19 16:48 12/25/19 12/25/19 12/25/19 06:59 14:59 22:59 Intake Total 150 / 920 720 / 720 290 / 1010 Output Total 800 / 1725 75 / 75 Balance -650 / -805 720 / 720 215 / 935 Weight last 48 hrs Weight 127 lb 12.8 oz Weight 123 lb 6.4 oz Physical Exam Narrative: EXAM NARRATIVE: GENERAL: The patient is alert and oriented times three. Not in any acute distress. HEENT: No significant pallor, icterus or lymphadenopathy.Oral cavity: There are no mucous membrane lesions. NECK: Trachea appears to be central. No masses noted. No JVD or thyromegaly appreciated. RESPIRATORY: Chest is symmetrical. No intercostals muscle retraction or any accessory muscle activation. There is no chest wall tenderness. Breath sounds are heard bilaterally. Occasional coarse crackles bilaterally. BREASTS: Deferred. HEART: The heart sounds are normal. No S3 or S4. No significant murmurs. No pericardial rub ABDOMEN: No vessel pulsations or distention. No tenderness. No organomegaly appreciated. Bowel sounds are normally heard. : Deferred. RECTAL: Deferred. LYMPHATIC: No lymphadenopathy noted in the neck or groin. EXTREMITIES: No edema or cyanosis. No clubbing. Peripheral pulses are palpated in fairly good volume and amplitude MUSCULOSKELETAL: No acute joint deformities or swelling SKIN: There are no significant rashes or ecchymosis NEUROPSYCHIATRIC: The patient is alert and oriented x3. Appears to be in a good mood. No tremors or rigidity noted. Data : 12/25/19 04:23 12/24/19 04:13 A&P Assessment and plan (1) Intermittent atrial fibrillation: Patient is tolerating flecainide so far well. He has no side effects. Blood pressure seems to be stable. May continue on this medication at this time. Status: Acute (2) Squamous cell lung cancer: The worsening oxygen saturation, could be related to the metastatic lung disease. No evidence of heart failure. Management as per the oncology service. Status: Chronic Qualifiers: Laterality: right Qualified Code(s): C34.91 - Malignant neoplasm of unspecified part of right bronchus or lung (3) Anemia: Her hemoglobin seems to be fairly stable. Continue monitoring hemoglobin and hematocrit Status: Acute Qualifiers: Anemia type: unspecified type Qualified Code(s): D64.9 - Anemia, unspecified (4) History of pulmonary embolism: May continue on the current measures. Status: Acute (5) Obstructive pneumonia: Patient is on antibiotic therapy. Clinically seems to be improving. Status: Acute Attestations Medical Necessity Statement*: Disposition as per the primary Coding Level of Care Code Acute Toolroom Helper for [facility] Diagnoses Intermittent atrial fibrillation I48.0 Squamous cell lung cancer C34.91 Laterality: right Anemia D64.9 Anemia type: unspecified type History of pulmonary embolism Z86.711 Obstructive pneumonia J18.9
--- NOTE | 2019-12-25 18:50 | PC.NURSE ---
Shift Summary No acute events throughout shift. Patient was able to participate with PT. Patient up to chair and side of bed throughout shift. Patient continues to have increased oxygen requirements. Nurse to continue to monitor.
[2019-12-25] MEDS: OLANZapine 5 mg TABLET PO (20:14)
[2019-12-25] MEDS: OLANZapine 10 mg TABLET PO (20:14)
[2019-12-25] MEDS: tamsulosin 0.4 mg Capsule PO (20:14)
[2019-12-25] MEDS: zolpidem 5 mg Tablet PO (21:04)
--- NOTE | 2019-12-25 21:52 | PC.NURSE ---
Patient resting quietly in room watching a football game. Patient denies any needs at this time.
[2019-12-26] VITALS (17 sets, daily range): BP systolic 85–106; BP diastolic 55–73; PULSE 86–116; RESP 17–25; TEMP 36.6–36.9; O2SAT 95–100
--- NOTE | 2019-12-26 01:39 | PC.NURSE ---
Patient continues to rest quietly with no complaints or concerns noted. O2 sats remaining at high 90's. Continue care.
[2019-12-26] MEDS: cefepime 2,000 MG in sodium chloride 0.9% (plus) 50 ML 100 MG IV ×2 (02:09→15:03)
[2019-12-26] MEDS: levalbuterol 1.25 mg/3 mL Neb INHALATION ×4 (03:00→20:29)
--- NOTE | 2019-12-26 04:14 | PC.NURSE ---
Implanted port dressing changed today at 0400 per sterile technique.Patient tolerated well. Continue care
--- NOTE | 2019-12-26 07:32 | PC.NURSE ---
pt resting in bed. pt stated that he slept pretty good last night. assessment was performed. urinal emptied. call light placed within reach, will continue to monitor.
[2019-12-26] MEDS: pantoprazole DR 40 mg Tablet PO (09:13)
[2019-12-26] MEDS: guaiFENesin 600 mg Tablet PO ×2 (09:13→17:38)
[2019-12-26] MEDS: sennosides-docusate Tablet 1 TAB PO ×2 (09:13→17:38)
[2019-12-26] MEDS: multivitamin therapeutic Tablet 1 TAB PO (09:13)
[2019-12-26] MEDS: metoprolol tartrate 25 mg Tablet PO ×2 (09:13→17:38)
[2019-12-26] MEDS: sulfamethoxazole-trimeth DS 160-800 mg Tablet 1 TAB PO ×2 (09:13→17:38)
[2019-12-26] MEDS: flecainide 100 mg Tablet 50 MG PO ×2 (09:13→20:42)
[2019-12-26] MEDS: sertraline 100 mg Tablet 200 MG PO (09:13)
[2019-12-26] MEDS: apixaban 5 mg Tablet 2.5 MG PO ×2 (09:14→17:38)
--- NOTE | 2019-12-26 10:34 | PM.PN ---
Subjective Subjective: Interval history: Patient continues to have shortness of breath, especially with exertion he seems to seems to be desaturating. Currently he is on 9 L of oxygen by nasal cannula. Denies any chest pain or palpitation. Telemetry shows sinus rhythm/sinus tachycardia with the heart rate ranging anywhere from 90 to 110 bpm. He has occasional PVCs. Medications: Reviewed: Yes Medication Review Details: Current Medications Alprazolam (Xanax) 0.125 mg PO TID PRN PRN Reason: ANXIETY Last Admin: 12/24/19 20:23 Dose: 0.125 mg Documented by: Apixaban (Eliquis) 2.5 mg PO BID [facility] Last Admin: 12/26/19 09:14 Dose: 2.5 mg Documented by: Flecainide Acetate (Tambocor) 50 mg PO Q12H [facility] Last Admin: 12/26/19 09:13 Dose: 50 mg Documented by: Guaifenesin (Mucinex) 600 mg PO BID [facility] Last Admin: 12/26/19 09:13 Dose: 600 mg Documented by: Cefepime HCl 2,000 mg/ Sodium (Chloride) 50 mls @ 100 mls/hr IV Q12H [facility]; Protocol Last Admin: 12/26/19 02:09 Dose: 100 mls/hr Documented by: Levalbuterol HCl (Xopenex) 1.25 mg INHALATION Q6H.RESPIRATORY [facility] Last Admin: 12/26/19 08:45 Dose: 1.25 mg Documented by: Methylprednisolone Sodium Succinate (Solu-Medrol) 40 mg IVP Q12H [facility] Last Admin: 12/26/19 09:13 Dose: 40 mg Documented by: Metoprolol Tartrate (Lopressor) 25 mg PO BID [facility] Last Admin: 12/26/19 09:13 Dose: 25 mg Documented by: Multivitamins Therapeutic (Multivitamin Tab) 1 tab PO DAILY [facility] Last Admin: 12/26/19 09:13 Dose: 1 tab Documented by: Olanzapine (Zyprexa) 10 mg PO BEDTIME [facility] Last Admin: 12/25/19 20:14 Dose: 10 mg Documented by: Olanzapine (Zyprexa) 5 mg PO BEDTIME [facility] Last Admin: 12/25/19 20:14 Dose: 5 mg Documented by: Ondansetron HCl (Zofran) 4 mg IVP Q6H PRN PRN Reason: vomiting, or N/V if npo Last Admin: 12/18/19 11:48 Dose: 4 mg Documented by: Oxycodone/Acetaminophen (Percocet 5-325 Mg) 1 tab PO Q4H PRN PRN Reason: MODERATE PAIN Last Admin: 12/25/19 08:32 Dose: 1 tab Documented by: Pantoprazole Sodium (Protonix) 40 mg PO DAILY [facility] Last Admin: 12/26/19 09:13 Dose: 40 mg Documented by: Prochlorperazine (Compazine) 10 mg PO Q4H PRN PRN Reason: mild nausea Promethazine HCl (Phenergan) 25 mg PO Q6H PRN PRN Reason: NAUSEA Senna/Docusate Sodium (Senna-S) 1 tab PO BID [facility] Last Admin: 12/26/19 09:13 Dose: 1 tab Documented by: Sertraline HCl (Zoloft) 200 mg PO DAILY [facility] Last Admin: 12/26/19 09:13 Dose: 200 mg Documented by: Tamsulosin HCl (Flomax) 0.4 mg PO BEDTIME [facility] Last Admin: 12/25/19 20:14 Dose: 0.4 mg Documented by: Trimethoprim/Sulfamethoxazole (Bactrim Ds) 1 tab PO BID [facility]; Protocol Last Admin: 12/26/19 09:13 Dose: 1 tab Documented by: Zolpidem Tartrate (Ambien) 5 mg PO BEDTIME PRN PRN Reason: ANXIETY Last Admin: 12/25/19 21:04 Dose: 5 mg Documented by: Vitals/I&O/Wt Last Vital Signs Temp 97.8 F 12/26/19 08:00 Pulse 108 H 12/26/19 08:47 Resp 18 12/26/19 08:47 BP 98/70 12/26/19 08:00 Pulse Ox 99 12/26/19 08:47 12/25/19 12/26/19 12/26/19 22:59 06:59 14:59 Intake Total 290 / 1010 480 / 480 Output Total 375 / 375 1450 / 1825 Balance -85 / 635 -1450 / -815 480 / 480 Weight last 48 hrs Weight 118 lb 9.6 oz Weight 127 lb 12.8 oz Physical Exam Narrative: EXAM NARRATIVE: GENERAL: The patient is alert and oriented times three. Not in any acute distress. HEENT: No significant pallor, icterus or lymphadenopathy.Oral cavity: There are no mucous membrane lesions. NECK: Trachea appears to be central. No masses noted. No JVD or thyromegaly appreciated. RESPIRATORY: Chest is symmetrical. No intercostals muscle retraction or any accessory muscle activation. There is no chest wall tenderness. Breath sounds are heard bilaterally. Occasional coarse crackles bilaterally. BREASTS: Deferred. HEART: The heart sounds are normal. No S3 or S4. No significant murmurs. No pericardial rub ABDOMEN: No vessel pulsations or distention. No tenderness. No organomegaly appreciated. Bowel sounds are normally heard. : Deferred. RECTAL: Deferred. LYMPHATIC: No lymphadenopathy noted in the neck or groin. EXTREMITIES: No edema or cyanosis. No clubbing. Peripheral pulses are palpated in fairly good volume and amplitude MUSCULOSKELETAL: No acute joint deformities or swelling SKIN: There are no significant rashes or ecchymosis NEUROPSYCHIATRIC: The patient is alert and oriented x3. Appears to be in a good mood. No tremors or rigidity noted. Data : 12/25/19 04:23 12/24/19 04:13 Other Labs: Laboratory Last Values WBC 15.3 10^3/uL (4.0-10.0) H 12/25/19 04:23 RBC 3.83 10^6/uL (4.1-5.3) L 12/25/19 04:23 Hgb 10.2 g/dL (11.7-16.6) L 12/25/19 04:23 Hct 34.2 % (42.0-52.0) L 12/25/19 04:23 MCV 89.3 fL (80-94) 12/25/19 04:23 MCH 26.6 pg (28.0-34.0) L 12/25/19 04:23 MCHC 29.8 g/dL (30.0-36.0) L 12/25/19 04:23 RDW 19.9 % (12.1-15.1) H 12/25/19 04:23 Plt Count 187 10^3/cmm (130-400) 12/25/19 04:23 MPV 10.2 fL (7.4-10.4) 12/25/19 04:23 Neut % (Auto) 83.5 % 12/25/19 04:23 Lymph % (Auto) 8.6 % 12/25/19 04:23 [place] % (Auto) 4.3 % 12/25/19 04:23 Eos % (Auto) 0.2 % 12/25/19 04:23 Baso % (Auto) 0.2 % 12/25/19 04:23 Neut # (Auto) 12.78 10^3/uL (1.8-7.7) H 12/25/19 04:23 Lymph # (Auto) 1.3 10^3/uL (0.8-4.8) 12/25/19 04:23 [place] # (Auto) 0.7 10^3/uL (0.2-0.9) 12/25/19 04:23 Eos # (Auto) 0.0 10^3/uL (0.0-0.8) 12/25/19 04:23 Baso # (Auto) 0.0 10^3/uL (0.0-0.1) 12/25/19 04:23 Nucleated RBC % (auto) 0 % 12/25/19 04:23 Nucleated RBCs # 0.0 /100WBC 12/25/19 04:23 Specimen Type Arterial 12/09/19 09:29 Sample Site Brachial, left 12/09/19 09:29 ABG pH 7.45 (7.35-7.45) 12/09/19 09: ABG pCO2 38.8 mmHg (35-45) 12/09/19 09: ABG pO2 80.4 mmHg (80.0-100.0) 12/09/19 09:29 ABG HCO3 27.0 mmol/L (22-26) H 12/09/19 09:29 ABG O2 Saturation 97.2 12/09/19 09:29 ABG Base Excess 2.9 mmol/L (-2.0-2.0) H 12/09/19 09: Zafar Test N/a 12/09/19 09: A-a O2 Gradient 16.7 mmHg (5-10) H 12/09/19 09:29 Hematocrit 41.6 % (42-52) L 12/09/19 09:29 Hgb O2 Saturation 95.3 % (95-100) 12/09/19 09:29 Carboxyhemoglobin 1.1 %THgb (0.4-20.1) 12/09/19 09:29 Methemoglobin 0.8 % (0.4-1.5) 12/09/19 09:29 Total Hemoglobin 13.6 g/dL (14-18) L 12/09/19 09:29 Sodium 136.0 mmol/L (131-143) 12/09/19 09:29 Potassium 3.8 mmol/L (3.5-5.0) 12/09/19 09:29 Glucose 134.0 mg/dL (70-115) H 12/09/19 09:29 Ionized Calcium 1.3 mmol/L (1.1-1.4) 12/09/19 09:29 O2 Delivery Device Nc 12/09/19 09:29 O2 Liters/Min 4.0 % 12/09/19 09:29 FiO2 36.0 % 12/09/19 09:29 Chief Construction Inspector ID glc 12/09/19 09:29 Sodium 136 mmol/L (136-145) 12/24/19 04:13 Potassium 4.7 mmol/L (3.5-5.1) 12/24/19 04:13 Chloride 101 mmol/L (98-107) 12/24/19 04:13 Carbon Dioxide 27 mmol/L (22-29) 12/24/19 04:13 Anion Gap 12.7 (5-19) 12/24/19 04:13 BUN 30 mg/dL (8-23) H 12/24/19 04:13 Creatinine 0.6 mg/dL (0.7-1.2) L 12/24/19 04:13 GFR Calculation 133.2 mL/min (90-130) H 12/24/19 04:13 Glucose 135 mg/dL (65-115) H 12/24/19 04:13 Calculated Osmolality 281 mOsm/kg (285-295) L 12/24/19 04:13 Lactate 2.4 mmol/L (0.5-2.2) H 11/30/19 08:38 Calcium 8.3 mg/dL (8.5-10.5) L 12/24/19 04:13 Phosphorus 3.9 mg/dL (2.5-4.5) 12/24/19 04:13 Magnesium 2.2 mg/dL (1.7-2.3) 12/24/19 04:13 Total Bilirubin 0.2 mg/dL (0.15-1.2) 12/24/19 04:13 AST 23 U/L (0-40) 12/24/19 04:13 ALT 38 U/L (0-41) 12/24/19 04:13 Alkaline Phosphatase 112 IU/L (40-130) 12/24/19 04:13 Lactate Dehydrogenase 200 U/L (135-225) 12/20/19 07:11 Troponin T Baseline 6 ng/L (0-15) 12/14/19 09:30 Troponin T 120 Minute 6.00 ng/L (0-15) 12/14/19 11:28 Delta Troponin T 0 ABS# (0-10) 12/14/19 11:28 Troponin T Hi Sens 6Hr 6.00 ng/L (0-15) 12/14/19 15:53 Troponin T Hi Sens 6Hr Delta 0 ng/L (0-12) 12/14/19 15:53 C-React Prot High Sens 0.260 mg/dL (0.0-0.3) 12/24/19 04:13 NT-Pro-B Natriuret Pep 303 pg/mL (0-125) H 12/24/19 04:13 Total Protein 5.8 g/dL (6.6-8.7) L 12/24/19 04:13 Albumin 3.3 g/dL (3.5-5.2) L 12/24/19 04:13 Globulin 2.5 g/dL (1.3-4.6) 12/24/19 04:13 Urine Color Yellow (Yellow) 11/30/19 11:27 Urine Appearance Clear (CLEAR) 11/30/19 11:27 Urine pH 7 (5-7) 11/30/19 11:27 Ur Specific [place] 1.000 (1.005-1.030) L 11/30/19 11:27 Urine Protein Neg (Negative) 11/30/19 11:27 Urine Glucose (UA) Norm (Normal) 11/30/19 11:27 Urine Ketones Negative (Negative) 11/30/19 11:27 Urine Blood Neg (Negative) 11/30/19 11:27 Urine Nitrate Negative (Negative) 11/30/19 11:27 Urine Bilirubin Neg (NEGATIVE) 11/30/19 11:27 Urine Urobilinogen Norm mg/dL (Negative) 11/30/19 11:27 Ur Leukocyte Esterase Negative (Negative) 11/30/19 11:27 RSV Nasal Swab Not detected (Not Detected) 12/20/19 10:30 RSV Nasal Swab Int Cntl Not detected (Not Detected) 12/20/19 10:30 Vancomycin Trough 13.1 ug/mL (10-15) 12/05/19 13:20 Digoxin 1.0 ng/mL (0.6-1.2) 12/20/19 07:11 Adenovirus (PCR) Not detected (Not Detected) 12/20/19 10:30 Human Metapneumovir PCR Not detected (Not Detected) 12/20/19 10:30 Influenza A (RT-PCR) Not detected (Not Detected) 12/20/19 10:30 Influenza A (H1) PCR Not detected (Not Detected) 12/20/19 10:30 Influenza A (H3) PCR Not detected (Not Detected) 12/20/19 10:30 Influenza B (RT-PCR) Not detected (Not Detected) 12/20/19 10:30 Parainfluenzae Type 1 Not detected (Not Detected) 12/20/19 10:30 Parainfluenzae Type 2 Not detected (Not Detected) 12/20/19 10:30 Parainfluenzae Type 3 Not detected (Not Detected) 12/20/19 10:30 RSV Ab Comment see note 12/20/19 10:30 Rhinovirus (PCR) Not detected (Not Detected) 12/20/19 10:30 SARS-CoV-2 Ag (Rapid) Negative (Negative) 11/30/19 11:38 Misc Test Reference See comment 12/19/19 03:45 Blood Type O Positive 12/01/19 08:26 Rho(D) Type Positive 12/01/19 08:26 Antibody Screen Negative 12/01/19 08:26 Crossmatch See Detail 12/01/19 08:26 A&P Assessment and plan (1) Intermittent atrial fibrillation: Patient is tolerating flecainide so far well. He has no side effects. Blood pressure seems to be stable. May continue on this medication at this time. May be discharged home on this medication. Status: Acute (2) Squamous cell lung cancer: The worsening oxygen saturation, could be related to the metastatic lung disease. No evidence of heart failure. Management as per the oncology service. Status: Chronic Qualifiers: Laterality: right Qualified Code(s): C34.91 - Malignant neoplasm of unspecified part of right bronchus or lung (3) Anemia: Her hemoglobin seems to be fairly stable. Continue monitoring hemoglobin and hematocrit Status: Acute Qualifiers: Anemia type: unspecified type Qualified Code(s): D64.9 - Anemia, unspecified (4) History of pulmonary embolism: May continue on the current measures. Status: Acute (5) Obstructive pneumonia: Patient is on antibiotic . Clinically seems to be improving. Status: Acute Additional A&P Information If the patient is going to be discharged home over the weekend, please make an appointment to be seen in the office in 1 month Attestations Medical Necessity Statement*: Disposition as per the primary Coding Level of Care Code Acute Sciences Dean for [facility] Diagnoses Intermittent atrial fibrillation I48.0 Squamous cell lung cancer C34.91 Laterality: right Anemia D64.9 Anemia type: unspecified type History of pulmonary embolism Z86.711 Obstructive pneumonia J18.9
[2019-12-26] MEDS: oxyCODONE-APAP 5-325 mg Tablet 1 TAB PO ×2 (15:26→20:43)
--- NOTE | 2019-12-26 17:07 | PM.PN ---
Subjective Subjective: Interval history: The patient was able to get to the bathroom today and was significantly short of breath, however was able to recover after approximately 5 to 10 minutes. At rest he is able to be on 4 L of oxygen via nasal cannula. He denies any chest pains. He is coughing up a mild amount of clear phlegm. He is continuing to use his flutter valve. He is eating well without nausea or vomiting. Vitals/I&O/Wt Last Vital Signs Temp 98.4 F 12/26/19 15:32 Pulse 108 H 12/26/19 15:32 Resp 25 H 12/26/19 15:32 BP 95/62 12/26/19 15:32 Pulse Ox 96 12/26/19 15:32 12/26/19 12/26/19 12/26/19 06:59 14:59 22:59 Intake Total 50 / 1060 720 / 720 50 / 770 Output Total 1450 / 1825 325 / 325 100 / 425 Balance -1400 / -765 395 / 395 -50 / 345 Weight last 48 hrs Weight 118 lb 9.6 oz Weight 127 lb 12.8 oz Physical Exam Narrative: EXAM NARRATIVE: General: Alert and oriented x3. On nasal cannula oxygen at 3.5 L/min. Cardiac: Tachycardic rate with irregular rhythm. Lungs: Decreased air entry bilaterally with mild diffuse wheezes. No crackles in the bases. Abdomen: Soft, nontender without masses noted. Extremities: Trace edema Data : 12/25/19 04:23 12/24/19 04:13 A&P Additional A&P Information 1. Bilateral pneumonia - The patient is currently being treated for pneumonia and pneumonitis with cefepime and Bactrim. He was on Levaquin and Zosyn for 9 days without significant improvement, so was changed to imipenem with Bactrim and Levaquin on 12/08/2019 to help cover for atypicals or resistant strains. The imipenem has been switched to cefepime on 12/12/2019. Levaquin was discontinued on 12/23/2019. The underlying cause is likely secondary to postobstructive pneumonia from his cancer. New sputum sample did not show a specific bacteria as the source. Pneumonitis is likely playing a part in this process as well. 2. Anemia -the patient's hemoglobin is stable. 3. Hypoxia -the patient's oxygen needs have improved at rest. The patient has been able to get to the bathroom today. He had significant desaturations with this, however this is a step in the right direction. The patient continues to desaturate even with sitting up in bed, however he is recovering more quickly. In terms of discharge home, he will need to be able to get to the bathroom and back without significantly desaturating. We have discussed possibly sending him to [facility] for treatment as he has had a prolonged hospital stay. Further evaluation will be made on Sunday. At that time we will be able to see if he is making rapid improvement and possibly being able to be discharged home, versus continuing to have hypoxic issues and will need a longer stay at [facility]. I believe that he would be a good candidate for this unless he happens to make significant improvements over the weekend. 4. Metastatic lung cancer -the patient's tumor has shrunk with radiation treatments. There are scattered nodules present though. I am concerned that the cancer is advancing clinically. I spoke with the patient regarding hospice on 12/12/2019 as well as options for continuing with treatment and the patient will think about hospice, however for now would prefer to continue to try antibiotic treatments. The patient is aware that his overall prognosis is poor. I also spoke to the patient's son regarding this on 12/26/2019 and they are still in favor with continuing with aggressive treatment. If his overall status starts to worsen, we will readdress hospice and other similar resources at that time. 5. Pain control -the patient's pain seems to be well controlled with Percocet. Continue with this medication and change if needed. 6. Nausea -improved at this time. The patient is able to tolerate food by mouth well. 7. Thrush -continue with nystatin to swish and swallow for treatment. 8. Elevated digoxin level -digoxin has now been discontinued. 9. Atrial flutter with RVR -I appreciate Dr. Gutierrez's assistance with this patient. He has changed the patient to flecainide and discontinued digoxin. He is continued on metoprolol. His heart rate is doing well with these changes so far. The patient feels well with these changes as well. 10. Prophylaxis -the patient is currently on Eliquis for A. fib prophylaxis and this should cover him for DVT prophylaxis as well. Attestations Medical Necessity Statement*: The patient continues to need inpatient therapy secondary to significant desaturations with any exertion. Coding Level of Care Code Acute Process Line Operator for [facility]
--- NOTE | 2019-12-26 17:15 | PC.NURSE ---
dr maradiaga rounded, plans to keep pt and send him [facility] possibly.
--- NOTE | 2019-12-26 18:18 | PC.NURSE ---
pt had an uneventful shift. will continue to decrease oxygen as saturation tolerates. will try to get pt to [facility].
[2019-12-26] MEDS: zolpidem 5 mg Tablet PO (20:43)
[2019-12-26] MEDS: tamsulosin 0.4 mg Capsule PO (20:43)
[2019-12-26] MEDS: OLANZapine 10 mg TABLET PO (20:43)
[2019-12-26] MEDS: OLANZapine 5 mg TABLET PO (20:43)
[2019-12-27] VITALS (11 sets, daily range): BP systolic 86–115; BP diastolic 59–77; PULSE 15–110; RESP 18–30; TEMP 36.3–36.8; O2SAT 95–99
[2019-12-27] MEDS: cefepime 2,000 MG in sodium chloride 0.9% (plus) 50 ML 100 MG IV ×2 (02:49→15:27)
[2019-12-27] MEDS: levalbuterol 1.25 mg/3 mL Neb INHALATION ×3 (08:54→20:22)
--- NOTE | 2019-12-27 09:28 | PC.SOCIAL ---
IMM Updated Page 2 of IMM updated and given to patient. Initialed, dated, and timed and placed back in chart.
[2019-12-27] MEDS: pantoprazole DR 40 mg Tablet PO (09:47)
[2019-12-27] MEDS: flecainide 100 mg Tablet 50 MG PO ×2 (09:48→22:18)
[2019-12-27] MEDS: sertraline 100 mg Tablet 200 MG PO (09:48)
[2019-12-27] MEDS: apixaban 5 mg Tablet 2.5 MG PO ×2 (09:48→18:14)
[2019-12-27] MEDS: metoprolol tartrate 25 mg Tablet PO ×2 (09:48→18:14)
[2019-12-27] MEDS: sennosides-docusate Tablet 1 TAB PO ×2 (09:49→18:13)
[2019-12-27] MEDS: guaiFENesin 600 mg Tablet PO ×2 (09:49→18:13)
[2019-12-27] MEDS: multivitamin therapeutic Tablet 1 TAB PO (09:50)
[2019-12-27] MEDS: sulfamethoxazole-trimeth DS 160-800 mg Tablet 1 TAB PO ×2 (09:50→18:13)
[2019-12-27] MEDS: oxyCODONE-APAP 5-325 mg Tablet 1 TAB PO ×2 (09:53→18:14)
[2019-12-27] MEDS: ALPRAZolam 0.25 mg Tablet 0.125 MG PO (12:56)
[2019-12-27] MEDS: OLANZapine 10 mg TABLET PO (20:10)
[2019-12-27] MEDS: OLANZapine 5 mg TABLET PO (20:10)
[2019-12-27] MEDS: tamsulosin 0.4 mg Capsule PO (20:10)
--- NOTE | 2019-12-27 20:56 | P.PN_ITS ---
Subjective Subjective: Interval history: Subjectively he is actually feeling a little better. He is happy to report that he has been making some slow but improvement. Vitals/I&O/Wt Last Vital Signs Temp 98.1 F 12/27/19 19:23 Pulse 85 12/27/19 20:22 Resp 18 12/27/19 20:22 BP 103/64 12/27/19 19:23 Pulse Ox 96 12/27/19 20:22 12/27/19 12/27/19 12/27/19 06:59 14:59 22:59 Intake Total 150 / 1260 640 / 640 Output Total 300 / 1225 655 / 655 340 / 995 Balance -150 / 35 -15 / -15 -340 / -355 Weight last 48 hrs Weight 53.66 kg Weight 53.796 kg Physical Exam Const: COMMON NORMALS: alert GENERAL APPEARANCE: cooperative, comfortable, frail appearing and other (Weak, easily fatigable) NUTRITIONAL APPEARANCE: thin ORIENTATION/CONSCIOUSNESS: Yes awake HENMT: COMMON NORMALS: oropharynx normal Neck/C-Spine: COMMON NORMALS: no JVD Resp: COMMON NORMALS: normal respiratory effort AUSCULTATION: diminished lung sounds OTHER: Coarse breath sounds, better air entry. No wheezing. Cardio: COMMON NORMALS: no JVD, S1 normal heart sound present, S2 normal heart sound present and No murmurs present (Cardio) RATE: tachycardic HEART SOUNDS: S1 normal heart sound present and S2 normal heart sound present GI: COMMON NORMALS: Normal to inspection, nondistended, normoactive bowel sounds present, Soft to palpation and non-tender PALPATION: Yes Soft to palpation Extremity: COMMON NORMALS: no joint enlargement and no pedal edema Neuro: COMMON NORMALS: moves all extremities SENSORIUM/ORIENTATION: Yes alert Skin: COMMON NORMALS: no rashes or lesions noted GENERAL SKIN EXAM: no rashes or lesions noted Data : 12/25/19 04:23 12/24/19 04:13 A&P Assessment and plan (1) Pneumonia: Currently on cefepime and Bactrim. He is clinically actually showing some slow improvement. Down to 4 L nasal cannula today. Leukocytosis slowly decreasing, down to 15.3. Air entry appears to be improving on exam. We will try to cut down methylprednisolone to 20 mg every 12 hours. He has no chest pain. Continue minimal dose Xanax PRN for anxiety. CT chest negative for pulmonary embolism COVID testing was negative, viral panel negative, RSV not detected Blood culture is negative Nebulized treatments every 6 hours Wean oxygen as tolerated. Mucinex secondary to thick secretions Status: Acute Qualifiers: Laterality: bilateral Lung location: lower lobe of lung Pneumonia type : due to unspecified organism Qualified Code(s): J18.9 - Pneumonia, unspecified organism (2) Atrial fibrillation with rapid ventricular response: Continue flecainide per cardiology. 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 Sibley -MRI head (09/2019): no evidence of metastatic disease -has port-A-cath in place Continue attempts to mobilize. Wean oxygen as tolerating. Continue to revisit goals of care. Status: Chronic Qualifiers: Laterality: right Qualified Code(s): C34.91 - Malignant neoplasm of unspecified part of right bronchus or lung (4) Anemia: Holding iron supplement while there is suspicion of active infection. -Has known history of chronic normocytic anemia with baseline hemoglobin of around 10 -likely multifactorial given iron deficiency, underlying malignancy, poor nutrition status -Transfuse blood products if needed -Resume iron supplementation Status: Acute Qualifiers: Anemia type: unspecified type Qualified Code(s): D64.9 - Anemia, unspecified Additional A&P Information Hypoxia -continue to wean down oxygen as tolerating. He reports he is using his flutter valve. Follow-up additional studies and treatment for pneumonia as above. Pain control - currently is not in pain. Nausea -improved. The patient is able to tolerate food by mouth well. Thrush resolved after nystatin swish and swallow. Elevated digoxin level -improved. Continues on oral digoxin. Headache: Not complaining of headache currently. CT head without evidence of acute intracranial events. Attestations Medical Necessity Statement*: Continue admission for assessment management of pneumonia, hypoxia in the setting of pulmonary malignancy, difficult to control atrial fibrillation. Coding Level of Care Code Acute Desktop Manager for [facility] Diagnoses Pneumonia J18.9 Laterality: bilateral Lung location: lower lobe of lung Pneumonia type: due to unspecified organism Atrial fibrillation with rapid ventricular response I48.91 Squamous cell lung cancer C34.91 Laterality: right Anemia D64.9 Anemia type: unspecified type
[2019-12-27] MEDS: zolpidem 5 mg Tablet PO (22:18)
[2019-12-28] VITALS (18 sets, daily range): BP systolic 84–115; BP diastolic 55–76; PULSE 81–112; RESP 18–28; TEMP 36.4–36.8; O2SAT 93–100
[2019-12-28] MEDS: levalbuterol 1.25 mg/3 mL Neb INHALATION ×4 (02:04→22:31)
[2019-12-28] MEDS: cefepime 2,000 MG in sodium chloride 0.9% (plus) 50 ML 100 MG IV ×2 (03:29→16:17)
--- NOTE | 2019-12-28 05:46 | PC.NURSE ---
PT HAD AN UNEVENTFUL NIGHT. V/S WNL. PT DENIES PAIN AT THIS TIME. WILL CONTINUE TO MONITOR. WILL GIVE REPORT TO ONCOMING NURSE.
[2019-12-28 06:18] LABS: Basophils % 0.2 %; Eosinophils # 0.1 10^3/uL (0.0-0.8); Eosinophils % 0.8 %; Hematocrit 37.9 % (42.0-52.0); Hemoglobin 11.2 g/dL (11.7-16.6); Lymphocytes # 1.3 10^3/uL (0.8-4.8); Lymphocytes % 10.3 %; Mean Corpuscular HGB Conc 29.6 g/dL (30.0-36.0); Mean Corpuscular Hemoglobin 26.7 pg (28.0-34.0); Mean Corpuscular Volume 90.5 fL (80-94); Mean Platelet Volume 10.6 fL (7.4-10.4); Monocytes # 0.6 10^3/uL (0.2-0.9); Monocytes % 4.3 %; Neutrophils # 10.54 10^3/uL (1.8-7.7); Neutrophils % 80.6 %; Nucleated Red Blood Cells % 0 %; Platelet Count 185 10^3/cmm (130-400); Red Blood Count 4.19 10^6/uL (4.1-5.3); Red Cell Distribution Width 20.3 % (12.1-15.1); White Blood Count 13.1 10^3/uL (4.0-10.0)
[2019-12-28 07:03] LABS: Anion Gap 14.6 (5-19); Blood Urea Nitrogen 24 mg/dL (8-23); Calcium 9.2 mg/dL (8.5-10.5); Carbon Dioxide 29 mmol/L (22-29); Chloride 99 mmol/L (98-107); Glomerular Filtration Rate 133.2 mL/min (90-130); Glucose 120 mg/dL (65-115); Osmolality Calculated 284 mOsm/kg (285-295); Potassium 4.6 mmol/L (3.5-5.1); Sodium 138 mmol/L (136-145)
[2019-12-28] MEDS: guaiFENesin 600 mg Tablet PO ×2 (08:11→17:56)
[2019-12-28] MEDS: sertraline 100 mg Tablet 200 MG PO (08:11)
[2019-12-28] MEDS: sulfamethoxazole-trimeth DS 160-800 mg Tablet 1 TAB PO ×2 (08:12→17:57)
[2019-12-28] MEDS: metoprolol tartrate 25 mg Tablet PO ×2 (08:12→17:56)
[2019-12-28] MEDS: pantoprazole DR 40 mg Tablet PO (08:12)
[2019-12-28] MEDS: multivitamin therapeutic Tablet 1 TAB PO (08:12)
[2019-12-28] MEDS: sennosides-docusate Tablet 1 TAB PO ×2 (08:12→17:56)
[2019-12-28] MEDS: apixaban 5 mg Tablet 2.5 MG PO ×2 (08:12→17:56)
[2019-12-28] MEDS: oxyCODONE-APAP 5-325 mg Tablet 1 TAB PO ×3 (08:15→22:30)
--- NOTE | 2019-12-28 10:01 | PM.PN ---
Subjective Subjective: Interval history: Says today he is bothered by nausea. Otherwise is doing okay. No chest pain. No worsening breathing today. Vitals/I&O/Wt Last Vital Signs Temp 97.8 F 12/28/19 07:28 Pulse 107 H 12/28/19 08:14 Resp 24 H 12/28/19 08:15 BP 110/67 12/28/19 07:28 Pulse Ox 97 12/28/19 08:08 12/27/19 12/28/19 12/28/19 22:59 06:59 14:59 Intake Total 100 / 740 50 / 790 Output Total 490 / 1145 875 / 2020 300 / 300 Balance -390 / -405 -825 / -1230 -300 / -300 Weight last 48 hrs Weight 56.971 kg Weight 53.66 kg Physical Exam Const: COMMON NORMALS: alert GENERAL APPEARANCE: cooperative, comfortable, frail appearing and other (Weak, easily fatigable) NUTRITIONAL APPEARANCE: thin ORIENTATION/CONSCIOUSNESS: Yes awake HENMT: COMMON NORMALS: oropharynx normal Neck/C-Spine: COMMON NORMALS: no JVD Resp: COMMON NORMALS: normal respiratory effort AUSCULTATION: diminished lung sounds OTHER: Coarse breath sounds, few rhonchi. Moderately good air entry. No wheezing. Cardio: COMMON NORMALS: no JVD, S1 normal heart sound present, S2 normal heart sound present and No murmurs present (Cardio) RATE: tachycardic HEART SOUNDS: S1 normal heart sound present and S2 normal heart sound present GI: COMMON NORMALS: Normal to inspection, nondistended, normoactive bowel sounds present, Soft to palpation and non-tender PALPATION: Yes Soft to palpation Extremity: COMMON NORMALS: no joint enlargement and no pedal edema OTHER: Thin Neuro: COMMON NORMALS: moves all extremities SENSORIUM/ORIENTATION: Yes alert Skin: COMMON NORMALS: no rashes or lesions noted GENERAL SKIN EXAM: no rashes or lesions noted Data : 12/28/19 05:40 12/28/19 05:40 A&P Assessment and plan (1) Nausea: Bothered by nausea today. No abdominal pain. Abdomen soft. No vomiting. Continue PPI. Decreased methylprednisolone dose. Zofran as needed. Add sucralfate due to length of steroid therapy, concern for steroid induced gastritis. Status: Acute (2) Pneumonia: WBC count gradually improving. Oxygenation slowly improving. Currently on cefepime and Bactrim. Down to 4 L nasal cannula today. Air entry appears to be improving on exam. Cut down methylprednisolone to 20 mg every 12 hours. Continue to taper off if continues to improve and may consider transition to oral steroid. He has no chest pain. Continue minimal dose Xanax PRN for anxiety. CT chest negative for pulmonary embolism COVID testing was negative, viral panel negative, RSV not detected Blood culture is negative Nebulized treatments every 6 hours Wean oxygen as tolerated. Mucinex secondary to thick secretions Status: Acute Qualifiers: Laterality: bilateral Lung location: lower lobe of lung Pneumonia type: due to unspecified organism Qualified Code(s): J18.9 - Pneumonia, unspecified organism (3) Atrial fibrillation with rapid ventricular response: Continue flecainide per cardiology. Metoprolol. 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 Sibley -MRI head (09/2019): no evidence of metastatic disease -has port-A-cath in place Continue attempts to mobilize. Wean oxygen as tolerating. Continue to revisit goals of care. Status: Chronic Qualifiers: Laterality: right Qualified Code(s): C34.91 - Malignant neoplasm of unspecified part of right bronchus or lung (5) Anemia: Holding iron supplement while there is suspicion of active infection. -Has known history of chronic normocytic anemia with baseline hemoglobin of around 10 -likely multifactorial given iron deficiency, underlying malignancy, poor nutrition status -Transfuse blood products if needed -Resume iron supplementation Status: Acute Qualifiers: Anemia type: unspecified type Qualified Code(s): D64.9 - Anemia, unspecified Additional A&P Information Hypoxia -continue to wean down oxygen as tolerating. He reports he is using his flutter valve. Follow-up additional studies and treatment for pneumonia as above. Pain control - currently is not in pain. Thrush resolved after nystatin swish and swallow. Elevated digoxin level -improved. Off oral digoxin. Headache: Not complaining of headache currently. CT head without evidence of acute intracranial events. Attestations Medical Necessity Statement*: Continue patient for assessment management of slow to improve respiratory failure, pneumonia with underlying pulmonary malignancy. Coding Level of Care Code Acute Single Stayer Operator for g Fwd Diagnoses Nausea R11.0 Pneumonia J18.9 Laterality: bilateral Lung location: lower lobe of lung Pneumonia type: due to unspecified organism Atrial fibrillation with rapid ventricular response I48.91 Squamous cell lung cancer C34.91 Laterality: right Anemia D64.9 Anemia type: unspecified type
[2019-12-28] MEDS: flecainide 100 mg Tablet 50 MG PO ×2 (10:53→21:06)
[2019-12-28] MEDS: ondansetron 2 mg/ML SDV 2 mL 4 MG IVP (11:00)
[2019-12-28] MEDS: sucralfate 1 gm/10 mL Oral Liq UDC PO ×3 (11:28→21:06)
--- NOTE | 2019-12-28 13:05 | PM.PN ---
Subjective Subjective: Interval history: Please note that this is a progress note for yesterday as I forget to write after my examination. Progress note is dated 12/26/2089 feeling better heart rate is under control breathing better. Vitals/I&O/Wt Last Vital Signs Temp 97.5 F L 12/28/19 12:00 Pulse 99 12/28/19 12:00 Resp 22 H 12/28/19 12:00 BP 109/75 12/28/19 12:00 Pulse Ox 100 12/28/19 12:00 12/27/19 12/28/19 12/28/19 22:59 06:59 14:59 Intake Total 100 / 740 50 / 790 360 / 360 Output Total 490 / 1145 875 / 2020 300 / 300 Balance -390 / -405 -825 / -1230 60 / 60 Weight last 48 hrs Weight 125 lb 9.6 oz Weight 118 lb 4.8 oz Physical Exam Narrative: EXAM NARRATIVE: GENERAL: Patient is alert, awake and oriented x3. NECK: No jugular vein distension. HEENT: No cyanosis. No icterus. No pallor. HEART: Regular S1 and S2. No murmur, rub or gallop. LUNGS: Left lower lobe inspiratory crackles ABDOMEN: Soft, nontender and nondistended. Positive bowel sounds. No guarding, rebound or tenderness. CENTRAL NERVOUS SYSTEM: Grossly nonfocal. EXTREMITIES: Lower extremities without edema bilaterally. Data : 12/28/19 05:40 12/28/19 05:40 A&P Assessment and plan (1) Intermittent atrial fibrillation: Currently continues to be in sinus rhythm. We will continue same medicine continue propafenone. He is on anticoagulation. Status: Acute (2) Pneumonia: Appear to be improving. Continue as per medicine. Status: Acute Qualifiers: Laterality: bilateral Lung location: lower lobe of lung Pneumonia type: due to unspecified organism Qualified Code(s): J18.9 - Pneumonia, unspecified organism Attestations Medical Necessity Statement*: Require continuation hospitalization for above defined care Coding Level of Care Code Acute Commercial Finance Manager for [facility] Fw Diagnoses Intermittent atrial fibrillation I48.0 Pneumonia J18.9 Laterality: bilateral Lung location: lower lobe of lung Pneumonia type: due to unspecified organism
--- NOTE | 2019-12-28 13:09 | PM.PN ---
Subjective Subjective: Interval history: Feeling nauseous however remains in sinus rhythm appeared to be improving by physical examination vital mcmillan. Medications: Reviewed: Yes Medication Review Details: Current Medications Alprazolam (Xanax) 0.125 mg PO TID PRN PRN Reason: ANXIETY Last Admin: 12/24/19 20:23 Dose: 0.125 mg Documented by: Apixaban (Eliquis) 2.5 mg PO BID VIKY Last Admin: 12/26/19 09:14 Dose: 2.5 mg Documented by: Flecainide Acetate (Tambocor) 50 mg PO Q12H VIKY Last Admin: 12/26/19 09:13 Dose: 50 mg Documented by: Guaifenesin (Mucinex) 600 mg PO BID VIKY Last Admin: 12/26/19 09:13 Dose: 600 mg Documented by: Cefepime HCl 2,000 mg/ Sodium (Chloride) 50 mls @ 100 mls/hr IV Q12H VIKY; Protocol Last Admin: 12/26/19 02:09 Dose: 100 mls/hr Documented by: Levalbuterol HCl (Xopenex) 1.25 mg INHALATION Q6H.RESPIRATORY VIKY Last Admin: 12/26/19 08:45 Dose: 1.25 mg Documented by: Methylprednisolone Sodium Succinate (Solu-Medrol) 40 mg IVP Q12H VIKY Last Admin: 12/26/19 09:13 Dose: 40 mg Documented by: Metoprolol Tartrate (Lopressor) 25 mg PO BID VIKY Last Admin: 12/26/19 09:13 Dose: 25 mg Documented by: Multivitamins Therapeutic (Multivitamin Tab) 1 tab PO DAILY VIKY Last Admin: 12/26/19 09:13 Dose: 1 tab Documented by: Olanzapine (Zyprexa) 10 mg PO BEDTIME VIKY Last Admin: 12/25/19 20:14 Dose: 10 mg Documented by: Olanzapine (Zyprexa) 5 mg PO BEDTIME VIKY Last Admin: 12/25/19 20:14 Dose: 5 mg Documented by: Ondansetron HCl (Zofran) 4 mg IVP Q6H PRN PRN Reason: vomiting, or N/V if npo Last Admin: 12/18/19 11:48 Dose: 4 mg Documented by: Oxycodone/Acetaminophen (Percocet 5-325 Mg) 1 tab PO Q4H PRN PRN Reason: MODERATE PAIN Last Admin: 12/25/19 08:32 Dose: 1 tab Documented by: Pantoprazole Sodium (Protonix) 40 mg PO DAILY [facility] Last Admin: 12/26/19 09:13 Dose: 40 mg Documented by: Prochlorperazine (Compazine) 10 mg PO Q4H PRN PRN Reason: mild nausea Promethazine HCl (Phenergan) 25 mg PO Q6H PRN PRN Reason: NAUSEA Senna/Docusate Sodium (Senna-S) 1 tab PO BID [facility] Last Admin: 12/26/19 09:13 Dose: 1 tab Documented by: Sertraline HCl (Zoloft) 200 mg PO DAILY [facility] Last Admin: 12/26/19 09:13 Dose: 200 mg Documented by: Tamsulosin HCl (Flomax) 0.4 mg PO BEDTIME [facility] Last Admin: 12/25/19 20:14 Dose: 0.4 mg Documented by: Trimethoprim/Sulfamethoxazole (Bactrim Ds) 1 tab PO BID [facility]; Protocol Last Admin: 12/26/19 09:13 Dose: 1 tab Documented by: Zolpidem Tartrate (Ambien) 5 mg PO BEDTIME PRN PRN Reason: ANXIETY Last Admin: 12/25/19 21:04 Dose: 5 mg Documented by: Vitals/I&O/Wt Last Vital Signs Temp 97.5 F L 12/28/19 12:00 Pulse 99 12/28/19 12:00 Resp 22 H 12/28/19 12:00 BP 109/75 12/28/19 12:00 Pulse Ox 100 12/28/19 12:00 12/27/19 12/28/19 12/28/19 22:59 06:59 14:59 Intake Total 100 / 740 50 / 790 360 / 360 Output Total 490 / 1145 / 2020 300 / 300 Balance -390 / -405 -825 / -1230 60 / 60 Weight last 48 hrs Weight 125 lb 9.6 oz Weight 118 lb 4.8 oz Physical Exam Narrative: EXAM NARRATIVE: GENERAL: Patient is alert, awake and oriented x3. NECK: No jugular vein distension. HEENT: No cyanosis. No icterus. No pallor. HEART: Regular S1 and S2. No murmur, rub or gallop. LUNGS: Left lower lobe inspiratory crackles ABDOMEN: Soft, nontender and nondistended. Positive bowel sounds. No guarding, rebound or tenderness. CENTRAL NERVOUS SYSTEM: Grossly nonfocal. EXTREMITIES: Lower extremities without edema bilaterally. Data : 12/28/19 05:40 12/28/19 05:40 A&P Assessment and plan (1) Intermittent atrial fibrillation: We will continue current regimen. Stable in sinus rhythm. Status: Acute (2) Pneumonia: Continue as per medicine Status: Acute Qualifiers: Laterality: bilateral Lung location: lower lobe of lung Pneumonia type: due to unspecified organism Qualified Code(s): J18.9 - Pneumonia, unspecified organism Additional A&P Information If the patient is going to be discharged home over the weekend, please make an appointment to be seen in the office in 1 month Attestations Medical Necessity Statement*: Require continuation of hospitalization for above defined care Coding Level of Care Code Established Pt Acute Auto Driver for [facility] Patient Type Established History Expanded Problem Focused Exam Expanded Problem Focused Medical Decision Making Moderate Complexity Diagnoses Intermittent atrial fibrillation I48.0 Pneumonia J18.9 Laterality: bilateral Lung location: lower lobe of lung Pneumonia type: due to unspecified organism
[2019-12-28] MEDS: OLANZapine 5 mg TABLET PO (21:07)
[2019-12-28] MEDS: OLANZapine 10 mg TABLET PO (21:07)
[2019-12-28] MEDS: tamsulosin 0.4 mg Capsule PO (21:07)
[2019-12-28] MEDS: zolpidem 5 mg Tablet PO (22:30)
[2019-12-29] VITALS (12 sets, daily range): BP systolic 97–117; BP diastolic 59–80; PULSE 102–117; RESP 15–33; TEMP 36.4–37.1; O2SAT 90–99
--- NOTE | 2019-12-29 00:31 | PC.NURSE ---
ASSUMED CARE AT SHIFT CHANGE. PT RESTING IN BED. PT DID WANT PRN AMBIEN AND OXYCODONE BEFORE HE WENT TO SLEEP. PT RATES PAIN 8/10. PRNS GIVEN. WILL CONTINUE TO MONITOR.
[2019-12-29] MEDS: cefepime 2,000 MG in sodium chloride 0.9% (plus) 50 ML 100 MG IV ×2 (03:26→14:54)
--- NOTE | 2019-12-29 06:22 | PC.NURSE ---
PT HAD AN UNEVENTFUL NIGHT. V/S WNL, PT HR WAS TACHY THROUGHOUT NIGHT 90-120'S. PT DENIES PAIN AT THIS TIME. WILL CONTINUE TO MONITOR. WILL GIVE REPORT TO ONCOMING NURSE.
[2019-12-29] MEDS: sucralfate 1 gm/10 mL Oral Liq UDC PO ×4 (06:33→21:15)
[2019-12-29] MEDS: guaiFENesin 600 mg Tablet PO ×2 (08:32→17:42)
[2019-12-29] MEDS: oxyCODONE-APAP 5-325 mg Tablet 1 TAB PO ×2 (08:32→22:55)
[2019-12-29] MEDS: metoprolol tartrate 25 mg Tablet PO ×2 (08:33→17:42)
[2019-12-29] MEDS: sennosides-docusate Tablet 1 TAB PO ×2 (08:33→17:42)
[2019-12-29] MEDS: sulfamethoxazole-trimeth DS 160-800 mg Tablet 1 TAB PO ×2 (08:33→17:42)
[2019-12-29] MEDS: pantoprazole DR 40 mg Tablet PO (08:33)
[2019-12-29] MEDS: apixaban 5 mg Tablet 2.5 MG PO ×2 (08:33→17:42)
[2019-12-29] MEDS: sertraline 100 mg Tablet 200 MG PO (08:33)
[2019-12-29] MEDS: multivitamin therapeutic Tablet 1 TAB PO (08:33)
--- NOTE | 2019-12-29 08:39 | PC.NURSE ---
Patient assisted to side of bed for approximately 30 minutes while eating breakfast. Patient became short of breath with exertion and had an increased oxygen demand of 5L to keep o2 sats at 90%. Patient tolerated activity fair. Nurse to continue to monitor.
[2019-12-29] MEDS: levalbuterol 1.25 mg/3 mL Neb INHALATION ×2 (08:51→15:40)
[2019-12-29] MEDS: flecainide 100 mg Tablet 50 MG PO ×2 (09:23→21:15)
--- NOTE | 2019-12-29 10:50 | PC.SOCIAL ---
IMM Updated Page 2 of IMM updated and given to patient. Initialed, dated, and timed and placed back in chart.
[2019-12-29] MEDS: ondansetron 2 mg/ML SDV 2 mL 4 MG IVP (12:05)
--- NOTE | 2019-12-29 12:15 | PC.NURSE ---
Nurse encouraged patient to get OOB for meal, patient refused stating he didn't feel well and didn't feel like eating. Patient states he is nauseous, zofran administered. Nurse to continue to monitor.
--- NOTE | 2019-12-29 18:19 | P.PN_ITS ---
Subjective Subjective: Interval history: The patient is having less shortness of breath at rest and is able to get by with 3.5 L at rest, however with any exertion he quickly desaturates and needs approximately 8 to 10 L of oxygen to recover. This can be as little exertion as getting from his bed to the chair next to his bed. He denies any cough or chest pains. He is eating well. Vitals/I&O/Wt Last Vital Signs Temp 98.7 F 12/29/19 17:12 Pulse 112 H 12/29/19 17:12 Resp 33 H 12/29/19 17:12 BP 109/73 12/29/19 17:12 Pulse Ox 97 12/29/19 17:12 12/29/19 12/29/19 12/29/19 06:59 14:59 22:59 Intake Total 50 / 920 960 / 960 240 / 1200 Output Total 525 / 1430 125 / 125 125 / 250 Balance -475 / -510 835 / 835 115 / 950 Weight last 48 hrs Weight 126 lb 3.2 oz Weight 125 lb 9.6 oz Physical Exam Narrative: EXAM NARRATIVE: General: Alert and oriented x3. On nasal cannula oxygen at 3.5 L/min. Cardiac: Tachycardic rate with irregular rhythm. Lungs: Decreased air entry bilaterally with mild diffuse wheezes. No crackles in the bases. Abdomen: Soft, nontender without masses noted. Extremities: Trace edema Data : 12/28/19 05:40 12/28/19 05:40 A&P Additional A&P Information 1. Bilateral pneumonia - The patient is currently being treated for pneumonia and pneumonitis with cefepime and Bactrim. He was on Levaquin and Zosyn for 9 days without significant improvement, so was changed to imipenem with Bactrim and Levaquin on 12/08/2019 to help cover for atypicals or resistant strains. The imipenem has been switched to cefepime on 12/12/2019. Levaquin was discontinued on 12/23/2019. The underlying cause is likely secondary to postobstructive pneumonia from his cancer. New sputum sample did not show a specific bacteria as the source. Pneumonitis is likely playing a part in this process as well. 2. Anemia -the patient's hemoglobin is stable. 3. Hypoxia -the patient's oxygen needs have improved at rest. The patient continues to desaturate even with sitting up in bed, however he is recovering more quickly. In terms of discharge home, he will need to be able to get to the bathroom and back without significantly desaturating. We have discussed possibly sending him to [place] for treatment as he has had a prolonged hospital stay and he is in agreement with this. He continues to have significant desaturation with any exertion. 4. Metastatic lung cancer -the patient's tumor has shrunk with radiation tr eatments. There are scattered nodules present though. I am concerned that the cancer is advancing clinically. I spoke with the patient regarding hospice on 12/12/2019 as well as options for continuing with treatment and the patient will think about hospice, however for now would prefer to continue to try antibiotic treatments. The patient is aware that his overall prognosis is poor. I also spoke to the patient's son regarding this on 12/26/2019 and they are still in favor with continuing with aggressive treatment. If his overall status starts to worsen, we will readdress hospice and other similar resources at that time. 5. Pain control -the patient's pain seems to be well controlled with Percocet. Continue with this medication and change if needed. 6. Nausea -improved at this time. The patient is able to tolerate food by mouth well. 7. Thrush -continue with nystatin to swish and swallow for treatment. 8. Elevated digoxin level -digoxin has now been discontinued. 9. Atrial flutter with RVR -I appreciate Dr. Gutierrez's assistance with this patient. He has changed the patient to flecainide and discontinued digoxin. He is continued on metoprolol. His heart rate is doing well with these changes so far. The patient feels well with these changes as well. 10. Prophylaxis -the patient is currently on Eliquis for A. fib prophylaxis and this should cover him for DVT prophylaxis as well. Attestations Medical Necessity Statement*: The patient is continued to make improvements and we will continue with the above treatment. His stay will continue to cross 2 midnights. 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
--- NOTE | 2019-12-29 18:39 | PC.NURSE ---
Shift uneventful. Dr. Gutierrez updated on patient condition via telephone. No further needs identified at this time. Nurse to continue to monitor.
--- NOTE | 2019-12-29 19:30 | PM.PN ---
Subjective Subjective: Interval history: Patient continues to have the shortness of breath with activities. He still requiring high rates of oxygen. Denies any chest pain. No fever or chills. Telemetry shows sinus rhythm/sinus tachycardia. No recurrence of atrial fibrillation. Medications: Reviewed: Yes Medication Review Details: Current Medications Alprazolam (Xanax) 0.125 mg PO TID PRN PRN Reason: ANXIETY Last Admin: 12/27/19 12:56 Dose: 0.125 mg Documented by: Apixaban (Eliquis) 2.5 mg PO BID [facility] Last Admin: 12/29/19 17:42 Dose: 2.5 mg Documented by: Flecainide Acetate (Tambocor) 50 mg PO Q12H [facility] Last Admin: 12/29/19 09:23 Dose: 50 mg Documented by: Guaifenesin (Mucinex) 600 mg PO BID [facility] Last Admin: 12/29/19 17:42 Dose: 600 mg Documented by: Cefepime HCl 2,000 mg/ Sodium (Chloride) 50 mls @ 100 mls/hr IV Q12H [facility]; Protocol Last Admin: 12/29/19 14:54 Dose: 100 mls/hr Documented by: Levalbuterol HCl (Xopenex) 1.25 mg INHALATION Q6H.RESPIRATORY [facility] Last Admin: 12/29/19 15:40 Dose: 1.25 mg Documented by: Methylprednisolone Sodium Succinate (Solu-Medrol) 20 mg IVP Q12H [facility] Last Admin: 12/29/19 09:24 Dose: 20 mg Documented by: Metoprolol Tartrate (Lopressor) 25 mg PO BID [facility] Last Admin: 12/29/19 17:42 Dose: 25 mg Documented by: Multivitamins Therapeutic (Multivitamin Tab) 1 tab PO DAILY [facility] Last Admin: 12/29/19 08:33 Dose: 1 tab Documented by: Olanzapine (Zyprexa) 10 mg PO BEDTIME [facility] Last Admin: 12/28/19 21:07 Dose: 10 mg Documented by: Olanzapine (Zyprexa) 5 mg PO BEDTIME [facility] Last Admin: 12/28/19 21:07 Dose: 5 mg Documented by: Ondansetron HCl (Zofran) 4 mg IVP Q6H PRN PRN Reason: vomiting, or N/V if npo Last Admin: 12/29/19 12:05 Dose: 4 mg Documented by: Oxycodone/Acetaminophen (Percocet 5-325 Mg) 1 tab PO Q4H PRN PRN Reason: MODERATE PAIN Last Admin: 12/29/19 08:32 Dose: 1 tab Documented by: Pantoprazole Sodium (Protonix) 40 mg PO DAILY [facility] Last Admin: 12/29/19 08:33 Dose: 40 mg Documented by: Prochlorperazine (Compazine) 10 mg PO Q4H PRN PRN Reason: mild nausea Promethazine HCl (Phenergan) 25 mg PO Q6H PRN PRN Reason: NAUSEA Senna/Docusate Sodium (Senna-S) 1 tab PO BID [facility] Last Admin: 12/29/19 17:42 Dose: 1 tab Documented by: Sertraline HCl (Zoloft) 200 mg PO DAILY [facility] Last Admin: 12/29/19 08:33 Dose: 200 mg Documented by: Sucralfate (Carafate Oral Liq) 1 gm PO AC&BEDTIME [facility] Last Admin: 12/29/19 17:41 Dose: 1 gm Documented by: Tamsulosin HCl (Flomax) 0.4 mg PO BEDTIME [facility] Last Admin: 12/28/19 21:07 Dose: 0.4 mg Documented by: Trimethoprim/Sulfamethoxazole (Bactrim Ds) 1 tab PO BID [facility]; Protocol Last Admin: 12/29/19 17:42 Dose: 1 tab Documented by: Zolpidem Tartrate (Ambien) 5 mg PO BEDTIME PRN PRN Reason: ANXIETY Last Admin: 12/28/19 22:30 Dose: 5 mg Documented by: Vitals/I&O/Wt Last Vital Signs Temp 98.7 F 12/29/19 17:12 Pulse 112 H 12/29/19 17:12 Resp 33 H 12/29/19 17:12 BP 109/73 12/29/19 17:12 Pulse Ox 97 12/29/19 17:12 12/29/19 12/29/19 12/29/19 06:59 14:59 22:59 Intake Total 50 / 920 960 / 960 240 / 1200 Output Total 525 / 1430 125 / 125 475 / 600 Balance -475 / -510 835 / 835 -235 / 600 Weight last 48 hrs Weight 126 lb 3.2 oz Weight 125 lb 9.6 oz Physical Exam Narrative: EXAM NARRATIVE: GENERAL: The patient is alert and oriented times three. Not in any acute distress. HEENT: No significant pallor, icterus or lymphadenopathy.Oral cavity: There are no mucous membrane lesions. NECK: Trachea appears to be central. No masses noted. No JVD or thyromegaly appreciated. RESPIRATORY: Chest is symmetrical. No intercostals muscle retraction or any accessory muscle activation. There is no chest wall tenderness. Breath sounds are heard bilaterally. Scattered coarse crackles bilaterally. BREASTS: Deferred. HEART: The heart sounds are normal. No S3 or S4. No significant murmurs. No pericardial rub ABDOMEN: No vessel pulsations or distention. No tenderness. No organomegaly appreciated. Bowel sounds are normally heard. : Deferred. RECTAL: Deferred. LYMPHATIC: No lymphadenopathy noted in the neck or groin. EXTREMITIES: No edema or cyanosis. No clubbing. Peripheral pulses are palpated in fairly good volume and amplitude MUSCULOSKELETAL: No acute joint deformities or swelling SKIN: There are no significant rashes or ecchymosis NEUROPSYCHIATRIC: The patient is alert and oriented x3. Appears to be in a good mood. No tremors or rigidity noted. Data : 12/28/19 05:40 12/28/19 05:40 Other Labs: Laboratory Last Values WBC 13.1 10^3/uL (4.0-10.0) H 12/28/19 05:40 RBC 4.19 10^6/uL (4.1-5.3) 12/28/19 05:40 Hgb 11.2 g/dL (11.7-16.6) L 12/28/19 05:40 Hct 37.9 % (42.0-52.0) L 12/28/19 05:40 MCV 90.5 fL (80-94) 12/28/19 05:40 MCH 26.7 pg (28.0-34.0) L 12/28/19 05:40 MCHC 29.6 g/dL (30.0-36.0) L 12/28/19 05:40 RDW 20.3 % (12.1-15.1) H 12/28/19 05:40 Plt Count 185 10^3/cmm (130-400) 12/28/19 05:40 MPV 10.6 fL (7.4-10.4) H 12/28/19 05:40 Neut % (Auto) 80.6 % 12/28/19 05:40 Lymph % (Auto) 10.3 % 12/28/19 05:40 [place] % (Auto) 4.3 % 12/28/19 05:40 Eos % (Auto) 0.8 % 12/28/19 05:40 Baso % (Auto) 0.2 % 12/28/19 05:40 Neut # (Auto) 10.54 10^3/uL (1.8-7.7) H 12/28/19 05:40 Lymph # (Auto) 1.3 10^3/uL (0.8-4.8) 12/28/19 05:40 [place] # (Auto) 0.6 10^3/uL (0.2-0.9) 12/28/19 05:40 Eos # (Auto) 0.1 10^3/uL (0.0-0.8) 12/28/19 05:40 Baso # (Auto) 0.0 10^3/uL (0.0-0.1) 12/28/19 05:40 Nucleated RBC % (auto) 0 % 12/28/19 05:40 Nucleated RBCs # 0.0 /100WBC 12/28/19 05:40 Specimen Type Arterial 12/09/19 09:29 Sample Site Brachial, left 12/09/19 09:29 ABG pH 7.45 (7.35-7.45) 12/09/19 09:29 ABG pCO2 38.8 mmHg (35-45) 12/09/19 09:29 ABG pO2 80.4 mmHg (80.0-100.0) 12/09/19 09:29 ABG HCO3 27.0 mmol/L (22-26) H 12/09/19 09:29 ABG O2 Saturation 97.2 12/09/19 09:29 ABG Base Excess 2.9 mmol/L (-2.0-2.0) H 12/09/19 09:29 Zafar Test N/a 12/09/19 09:29 A-a O2 Gradient 16.7 mmHg (5-10) H 12/09/19 09:29 Hematocrit 41.6 % (42-52) L 12/09/19 09:29 Hgb O2 Saturation 95.3 % (95-100) 12/09/19 09:29 Carboxyhemoglobin 1.1 %THgb (0.4-20.1) 12/09/19 09:29 Methemoglobin 0.8 % (0.4-1.5) 12/09/19 09:29 Total Hemoglobin 13.6 g/dL (14-18) L 12/09/19 09:29 Sodium 136.0 mmol/L (131-143) 12/09/19 09:29 Potassium 3.8 mmol/L (3.5-5.0) 12/09/19 09:29 Glucose 134.0 mg/dL (70-115) H 12/09/19 09:29 Ionized Calcium 1.3 mmol/L (1.1-1.4) 12/09/19 09:29 O2 Delivery Device Nc 12/09/19 09:29 O2 Liters/Min 4.0 % 12/09/19 09:29 FiO2 36.0 % 12/09/19 09:29 Spike Machine Heater ID glc 12/09/19 09:29 Sodium 138 mmol/L (136-145) 12/28/19 05:40 Potassium 4.6 mmol/L (3.5-5.1) 12/28/19 05:40 Chloride 99 mmol/L (98-107) 12/28/19 05:40 Carbon Dioxide 29 mmol/L (22-29) 12/28/19 05:40 Anion Gap 14.6 (5-19) 12/28/19 05:40 BUN 24 mg/dL (8-23) H 12/28/19 05:40 Creatinine 0.6 mg/dL (0.7-1.2) L 12/28/19 05:40 GFR Calculation 133.2 mL/min (90-130) H 12/28/19 05:40 Glucose 120 mg/dL (65-115) H 12/28/19 05:40 Calculated Osmolality 284 mOsm/kg (285-295) L 12/28/19 05:40 Lactate 2.4 mmol/L (0.5-2.2) H 11/30/19 08:38 Calcium 9.2 mg/dL (8.5-10.5) 12/28/19 05:40 Phosphorus 3.9 mg/dL (2.5-4.5) 12/24/19 04:13 Magnesium 2.2 mg/dL (1.7-2.3) 12/24/19 04:13 Total Bilirubin 0.2 mg/dL (0.15-1.2) 12/24/19 04:13 AST 23 U/L (0-40) 12/24/19 04:13 ALT 38 U/L (0-41) 12/24/19 04:13 Alkaline Phosphatase 112 IU/L (40-130) 12/24/19 04:13 Lactate Dehydrogenase 200 U/L (135-225) 12/20/19 07:11 Troponin T Baseline 6 ng/L (0-15) 12/14/19 09:30 Troponin T 120 Minute 6.00 ng/L (0-15) 12/14/19 11:28 Delta Troponin T 0 ABS# (0-10) 12/14/19 11:28 Troponin T Hi Sens 6Hr 6.00 ng/L (0-15) 12/14/19 15:53 Troponin T Hi Sens 6Hr Delta 0 ng/L (0-12) 12/14/19 15:53 C-React Prot High Sens 0.260 mg/dL (0.0-0.3) 12/24/19 04:13 NT-Pro-B Natriuret Pep 303 pg/mL (0-125) H 12/24/19 04:13 Total Protein 5.8 g/dL (6.6-8.7) L 12/24/19 04:13 Albumin 3.3 g/dL (3.5-5.2) L 12/24/19 04:13 Globulin 2.5 g/dL (1.3-4.6) 12/24/19 04:13 Urine Color Yellow (Yellow) 11/30/19 11:27 Urine Appearance Clear (CLEAR) 11/30/19 11:27 Urine pH 7 (5-7) 11/30/19 11:27 Ur Specific [place] 1.000 (1.005-1.030) L 11/30/19 11:27 Urine Protein Neg (Negative) 11/30/19 11:27 Urine Glucose (UA) Norm (Normal) 11/30/19 11:27 Urine Ketones Negative (Negative) 11/30/19 11:27 Urine Blood Neg (Negative) 11/30/19 11:27 Urine Nitrate Negative (Negative) 11/30/19 11:27 Urine Bilirubin Neg (NEGATIVE) 11/30/19 11:27 Urine Urobilinogen Norm mg/dL (Negative) 11/30/19 11:27 Ur Leukocyte Esterase Negative (Negative) 11/30/19 11:27 RSV Nasal Swab Not detected (Not Detected) 12/20/19 10:30 RSV Nasal Swab Int Cntl Not detected (Not Detected) 12/20/19 10:30 Vancomycin Trough 13.1 ug/mL (10-15) 12/05/19 13:20 Digoxin 1.0 ng/mL (0.6-1.2) 12/20/19 07:11 Adenovirus (PCR) Not detected (Not Detected) 12/20/19 10:30 Human Metapneumovir PCR Not detected (Not Detected) 12/20/19 10:30 Influenza A (RT-PCR) Not detected (Not Detected) 12/20/19 10:30 Influenza A (H1) PCR Not detected (Not Detected) 12/20/19 10:30 Influenza A (H3) PCR Not detected (Not Detected) 12/20/19 10:30 Influenza B (RT-PCR) Not detected (Not Detected) 12/20/19 10:30 Parainfluenzae Type 1 Not detected (Not Detected) 12/20/19 10:30 Parainfluenzae Type 2 Not detected (Not Detected) 12/20/19 10:30 Parainfluenzae Type 3 Not detected (Not Detected) 12/20/19 10:30 RSV Ab Comment see note 12/20/19 10:30 Rhinovirus (PCR) Not detected (Not Detected) 12/20/19 10:30 SARS-CoV-2 Ag (Rapid) Negative (Negative) 11/30/19 11:38 Misc Test Reference See comment 12/19/19 03:45 Blood Type O Positive 12/01/19 08:26 Rho(D) Type Positive 12/01/19 08:26 Antibody Screen Negative 12/01/19 08:26 Crossmatch See Detail 12/01/19 08:26 A&P Assessment and plan (1) Intermittent atrial fibrillation: Patient is tolerating flecainide so far well. He has no side effects. Blood pressure seems to be stable. May continue the current dose of the medication. Status: Acute (2) Squamous cell lung cancer: The worsening oxygen saturation, could be related to the metastatic lung disease. No evidence of heart failure. Management as per the oncology service. Status: Chronic Qualifiers: Laterality: right Qualified Code(s): C34.91 - Malignant neoplasm of unspecified part of right bronchus or lung (3) Anemia: Her hemoglobin seems to be fairly stable. Continue monitoring hemoglobin and hematocrit Status: Acute Qualifiers: Anemia type: unspecified type Qualified Code(s): D64.9 - Anemia, unspecified (4) History of pulmonary embolism: May continue on the current measures. Status: Acute (5) Obstructive pneumonia: Management as per the primary clinically seems to be improving. Status: Acute Additional A&P Information Patient apparently is waiting for [facility] care transfer. 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
[2019-12-29] MEDS: OLANZapine 5 mg TABLET PO (21:15)
[2019-12-29] MEDS: OLANZapine 10 mg TABLET PO (21:15)
[2019-12-29] MEDS: tamsulosin 0.4 mg Capsule PO (21:15)
[2019-12-29] MEDS: zolpidem 5 mg Tablet PO (22:55)
[2019-12-30] VITALS (13 sets, daily range): BP systolic 86–123; BP diastolic 53–79; PULSE 99–120; RESP 15–25; TEMP 36.4–36.8; O2SAT 95–100
[2019-12-30] MEDS: levalbuterol 1.25 mg/3 mL Neb INHALATION ×4 (02:03→20:52)
[2019-12-30] MEDS: cefepime 2,000 MG in sodium chloride 0.9% (plus) 50 ML 100 MG IV ×2 (03:53→14:25)
[2019-12-30] MEDS: sucralfate 1 gm/10 mL Oral Liq UDC PO ×4 (06:20→20:26)
--- NOTE | 2019-12-30 08:09 | P.PN_ITS ---
Subjective Subjective: Interval history: The patient has been constipated and has been having some nausea associated with this. The patient was able to get to the bathroom with significant assistance and desaturated quickly. It took him a few minutes to be able to catch his breath. Vitals/I&O/Wt Last Vital Signs Temp 97.9 F 12/30/19 08:00 Pulse 109 H 12/30/19 08:00 Resp 25 H 12/30/19 08:00 BP 96/64 12/30/19 08:00 Pulse Ox 95 12/30/19 08:00 12/29/19 12/30/19 12/30/19 22:59 06:59 14:59 Intake Total 290 / 1250 500 / 1750 Output Total 675 / 800 225 / 1025 Balance -385 / 450 275 / 725 Weight last 48 hrs Weight 123 lb 14.4 oz Weight 126 lb 3.2 oz Physical Exam Narrative: EXAM NARRATIVE: General: Alert and oriented x3. On nasal cannula oxygen at 3.5 L/min. Cardiac: Tachycardic rate with irregular rhythm. Lungs: Decreased air entry bilaterally with mild diffuse wheezes. No crackles in the bases. Abdomen: Soft, nontender without masses noted. Extremities: Trace edema Data : 12/28/19 05:40 12/28/19 05:40 A&P Additional A&P Information 1. Bilateral pneumonia - The patient is currently being treated for pneumonia and pneumonitis with cefepime and Bactrim. He was on Levaquin and Zosyn for 9 days without significant improvement, so was changed to imipenem with Bactrim and Levaquin on 12/08/2019 to help cover for atypicals or resistant strains. The imipenem has been switched to cefepime on 12/12/2019. Levaquin was discontinued on 12/23/2019. The underlying cause is likely secondary to postobstructive pneumonia from his cancer. New sputum sample did not show a specific bacteria as the source. Pneumonitis is likely playing a part in this process as well. 2. Anemia -the patient's hemoglobin is stable. 3. Hypoxia -the patient is currently on 4.5 L of oxygen and saturating 95%. The patient seems to do well at rest, however with any exertion he continues to have significant desaturations. He will require 8 to 10 L of oxygen to recover after walking approximately 8 feet to the bathroom. At this point the patient is not stable to be discharged home, and I would prefer that he goes to the [facility] has the IV antibiotics with cefepime seem to continue to be helping treat his postobstructive pneumonia. We will continue to follow for overall status on this. 4. Metastatic lung cancer -the patient's tumor has shrunk with radiation treatments. There are scattered nodules present though. I am concerned that the cancer is advancing clinically. I spoke with the patient regarding hospice on 12/12/2019 as well as options for continuing with treatment and the patient will think about hospice, however for now would prefer to continue to try antibiotic treatments. The patient is aware that his overall prognosis is poor. I also spoke to the patient's son regarding this on 12/26/2019 and they are still in favor with continuing with aggressive treatment. If his overall status starts to worsen, we will readdress hospice and other similar resources at that time. 5. Pain control -the patient's pain seems to be well controlled with Percocet. Continue with this medication and change if needed. 6. Nausea -improved at this time. The patient is able to tolerate food by mouth well. 7. Thrush -resolving with nystatin. 8. Atrial flutter with RVR -I appreciate Dr. Gutierrez's assistance with this patient. He has changed the patient to flecainide and discontinued digoxin. He is continued on metoprolol. His heart rate is doing well with these changes so far. The patient feels well with these changes as well. 9. Constipation -we will give milk of magnesia for treatment. 10. Prophylaxis -the patient is currently on Eliquis for A. fib prophylaxis and this should cover him for DVT prophylaxis as well. Attestations Medical Necessity Statement*: The patient will be here for greater than 2 midnights and continues to need inpatient care with significant hypoxia and the above issues. 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
--- NOTE | 2019-12-30 09:00 | PC.NURSE ---
pt resting in bed. requesting the bed mireles. placed on bedpan. pt educated on dr wanting pt to ambulated to bedside commode and be up and moving.
[2019-12-30] MEDS: apixaban 5 mg Tablet 2.5 MG PO ×2 (09:17→17:40)
[2019-12-30] MEDS: sennosides-docusate Tablet 1 TAB PO ×2 (09:17→17:41)
[2019-12-30] MEDS: pantoprazole DR 40 mg Tablet PO (09:18)
[2019-12-30] MEDS: guaiFENesin 600 mg Tablet PO ×2 (09:18→17:41)
[2019-12-30] MEDS: multivitamin therapeutic Tablet 1 TAB PO (09:18)
[2019-12-30] MEDS: sulfamethoxazole-trimeth DS 160-800 mg Tablet 1 TAB PO ×2 (09:18→17:40)
[2019-12-30] MEDS: sertraline 100 mg Tablet 200 MG PO (09:18)
[2019-12-30] MEDS: flecainide 100 mg Tablet 50 MG PO ×2 (09:18→20:25)
[2019-12-30] MEDS: metoprolol tartrate 25 mg Tablet PO ×2 (09:18→17:40)
[2019-12-30] MEDS: magnesium hydroxide 30 mL UDC PO (09:21)
--- NOTE | 2019-12-30 12:52 | PC.NURSE ---
pt assisted to bedside commonde. oxygen saturation went from 95% on 5 L nc down to 85% when assisted to commode. when transferred back to bed sats recovered back up to 93% after resting back in bed for approximately 2 minutes.
--- NOTE | 2019-12-30 14:28 | PC.NURSE ---
pt resting in bed. doing a breathing treatment with therapy when nurse entered room. antibiotics started per order. no needs identified at this time. call light within reach. will continue to monitor.
[2019-12-30] MEDS: oxyCODONE-APAP 5-325 mg Tablet 1 TAB PO ×2 (15:35→21:08)
--- NOTE | 2019-12-30 15:38 | PM.PN ---
Subjective Subjective: Interval history: Patient seems to doing okay. He still has significant dyspnea on exertion. In the lying down position, his oxygen requirement is low. He is on 6 L of oxygen by nasal cannula at rest. Denies any chest pain or palpitations. No new Medications: Reviewed: Yes Medication Review Details: Current Medications Alprazolam (Xanax) 0.125 mg PO TID PRN PRN Reason: ANXIETY Last Admin: 12/27/19 12:56 Dose: 0.125 mg Documented by: Apixaban (Eliquis) 2.5 mg PO BID [facility] Last Admin: 12/30/19 09:17 Dose: 2.5 mg Documented by: Flecainide Acetate (Tambocor) 50 mg PO Q12H [facility] Last Admin: 12/30/19 09:18 Dose: 50 mg Documented by: Guaifenesin (Mucinex) 600 mg PO BID [facility] Last Admin: 12/30/19 09:18 Dose: 600 mg Documented by: Cefepime HCl 2,000 mg/ Sodium (Chloride) 50 mls @ 100 mls/hr IV Q12H [facility]; Protocol Last Admin: 12/30/19 14:25 Dose: 100 mls/hr Documented by: Levalbuterol HCl (Xopenex) 1.25 mg INHALATION Q6H.RESPIRATORY [facility] Last Admin: 12/30/19 14:20 Dose: 1.25 mg Documented by: Magnesium Hydroxide (Milk Of Magnesia) 30 ml PO DAILY PRN PRN Reason: CONSTIPATION Last Admin: 12/30/19 09:21 Dose: 30 ml Documented by: Methylprednisolone Sodium Succinate (Solu-Medrol) 20 mg IVP Q12H [facility] Last Admin: 12/30/19 09:22 Dose: 20 mg Documented by: Metoprolol Tartrate (Lopressor) 25 mg PO BID [facility] Last Admin: 12/30/19 09:18 Dose: 25 mg Documented by: Multivitamins Therapeutic (Multivitamin Tab) 1 tab PO DAILY [facility] Last Admin: 12/30/19 09:18 Dose: 1 tab Documented by: Olanzapine (Zyprexa) 10 mg PO BEDTIME [facility] Last Admin: 12/29/19 21:15 Dose: 10 mg Documented by: Olanzapine (Zyprexa) 5 mg PO BEDTIME [facility] Last Admin: 12/29/19 21:15 Dose: 5 mg Documented by: Ondansetron HCl (Zofran) 4 mg IVP Q6H PRN PRN Reason: vomiting, or N/V if npo Last Admin: 12/29/19 12:05 Dose: 4 mg Documented by: Oxycodone/Acetaminophen (Percocet 5-325 Mg) 1 tab PO Q4H PRN PRN Reason: MODERATE PAIN Last Admin: 12/30/19 15:35 Dose: 1 tab Documented by: Pantoprazole Sodium (Protonix) 40 mg PO DAILY [facility] Last Admin: 12/30/19 09:18 Dose: 40 mg Documented by: Prochlorperazine (Compazine) 10 mg PO Q4H PRN PRN Reason: mild nausea Promethazine HCl (Phenergan) 25 mg PO Q6H PRN PRN Reason: NAUSEA Senna/Docusate Sodium (Senna-S) 1 tab PO BID [facility] Last Admin: 12/30/19 09:17 Dose: 1 tab Documented by: Sertraline HCl (Zoloft) 200 mg PO DAILY [facility] Last Admin: 12/30/19 09:18 Dose: 200 mg Documented by: Sucralfate (Carafate Oral Liq) 1 gm PO AC&BEDTIME [facility] Last Admin: 12/30/19 12:38 Dose: 1 gm Documented by: Tamsulosin HCl (Flomax) 0.4 mg PO BEDTIME [facility] Last Admin: 12/29/19 21:15 Dose: 0.4 mg Documented by: Trimethoprim/Sulfamethoxazole (Bactrim Ds) 1 tab PO BID [facility]; Protocol Last Admin: 12/30/19 09:18 Dose: 1 tab Documented by: Zolpidem Tartrate (Ambien) 5 mg PO BEDTIME PRN PRN Reason: ANXIETY Last Admin: 12/29/19 22:55 Dose: 5 mg Documented by: Vitals/I&O/Wt Last Vital Signs Temp 97.9 F 12/30/19 12:00 Pulse 107 H 12/30/19 14:26 Resp 23 H 12/30/19 15:35 BP 99/66 12/30/19 12:00 Pulse Ox 99 12/30/19 15:35 12/30/19 12/30/19 12/30/19 06:59 14:59 22:59 Intake Total 550 / 1800 720 / 720 Output Total 225 / 1025 100 / 100 Balance 325 / 775 620 / 620 Weight last 48 hrs Weight 123 lb 14.4 oz Weight 126 lb 3.2 oz Physical Exam Narrative: EXAM NARRATIVE: GENERAL: The patient is alert and oriented times three. Not in any acute distress. HEENT: No significant pallor, icterus or lymphadenopathy.Oral cavity: There are no mucous membrane lesions. NECK: Trachea appears to be central. No masses noted. No JVD or thyromegaly appreciated. RESPIRATORY: Chest is symmetrical. No intercostals muscle retraction or any accessory muscle activation. There is no chest wall tenderness. Breath sounds are heard bilaterally. Scattered coarse crackles bilaterally. BREASTS: Deferred. HEART: The heart sounds are normal. No S3 or S4. No significant murmurs. No pericardial rub ABDOMEN: No vessel pulsations or distention. No tenderness. No organomegaly appreciated. Bowel sounds are normally heard. : Deferred. RECTAL: Deferred. LYMPHATIC: No lymphadenopathy noted in the neck or groin. EXTREMITIES: No edema or cyanosis. No clubbing. Peripheral pulses are palpated in fairly good volume and amplitude MUSCULOSKELETAL: No acute joint deformities or swelling SKIN: There are no significant rashes or ecchymosis NEUROPSYCHIATRIC: The patient is alert and oriented x3. Appears to be in a good mood. No tremors or rigidity noted. Data : 12/28/19 05:40 12/28/19 05:40 A&P Assessment and plan (1) Intermittent atrial fibrillation: Patient is tolerating flecainide so far well. He has no side effects. Blood pressure seems to be stable. May continue the current dose of the medication. Patient may be discharged home on this medicine, the current dose Status: Acute (2) Squamous cell lung cancer: The worsening oxygen saturation, could be related to the metastatic lung disease. No evidence of heart failure. Management as per the oncology service. Status: Chronic Qualifiers: Laterality: right Qualified Code(s): C34.91 - Malignant neoplasm of unspecified part of right bronchus or lung (3) Anemia: Her hemoglobin seems to be improving. Continue monitoring hemoglobin and hematocrit Status: Acute Qualifiers: Anemia type: unspecified type Qualified Code(s): D64.9 - Anemia, unspecified (4) History of pulmonary embolism: May continue on the current measures. Status: Acute (5) Obstructive pneumonia: Management as per the primary clinically seems to be improving. Status: Acute Additional A&P Information Since the patient's overall cardiovascular status seems to be stable, I may sign off at this time. Please feel free to contact me, if there are any further questions regarding his cardiovascular status. Attestations Medical Necessity Statement*: Disposition as per the primary Coding Level of Care Code Acute [employer] for g Fwd Diagnoses Intermittent atrial fibrillation I48.0 Squamous cell lung cancer C34.91 Laterality: right Anemia D64.9 Anemia type: unspecified type History of pulmonary embolism Z86.711 Obstructive pneumonia J18.9
--- NOTE | 2019-12-30 19:14 | PC.NURSE ---
Patient resting in bed reading his bible. Patient denies any pain and remains alert and oriented. Denies any needs at this time. Will continue to monitor.
[2019-12-30] MEDS: tamsulosin 0.4 mg Capsule PO (20:24)
[2019-12-30] MEDS: OLANZapine 5 mg TABLET PO (20:25)
[2019-12-30] MEDS: OLANZapine 10 mg TABLET PO (20:25)
[2019-12-30] MEDS: zolpidem 5 mg Tablet PO (21:08)
[2019-12-31] VITALS (10 sets, daily range): BP systolic 95–124; BP diastolic 62–78; PULSE 96–107; RESP 17–24; TEMP 36.7–36.8; O2SAT 95–99; BMI 19.6
[2019-12-31] MEDS: cefepime 2,000 MG in sodium chloride 0.9% (plus) 50 ML 100 MG IV (03:42)
[2019-12-31 04:25] LABS: Basophils % 0.2 %; Eosinophils # 0.1 10^3/uL (0.0-0.8); Eosinophils % 0.3 %; Hematocrit 35.9 % (42.0-52.0); Hemoglobin 10.8 g/dL (11.7-16.6); Lymphocytes # 1.8 10^3/uL (0.8-4.8); Lymphocytes % 9.8 %; Mean Corpuscular HGB Conc 30.1 g/dL (30.0-36.0); Mean Corpuscular Hemoglobin 27.4 pg (28.0-34.0); Mean Corpuscular Volume 91.1 fL (80-94); Mean Platelet Volume 9.3 fL (7.4-10.4); Monocytes # 0.8 10^3/uL (0.2-0.9); Monocytes % 4.4 %; Neutrophils # 15.51 10^3/uL (1.8-7.7); Neutrophils % 83.8 %; Nucleated Red Blood Cells % 0 %; Platelet Count 172 10^3/cmm (130-400); Red Blood Count 3.94 10^6/uL (4.1-5.3); Red Cell Distribution Width 20.4 % (12.1-15.1); White Blood Count 18.5 10^3/uL (4.0-10.0)
[2019-12-31 04:58] LABS: Alanine Aminotransferase 34 U/L (0-41); Albumin Level 3.5 g/dL (3.5-5.2); Alkaline Phosphatase 113 IU/L (40-130); Anion Gap 16.4 (5-19); Aspartate Amino Transferase 20 U/L (0-40); Blood Urea Nitrogen 21 mg/dL (8-23); Calcium 9.1 mg/dL (8.5-10.5); Carbon Dioxide 28 mmol/L (22-29); Chloride 98 mmol/L (98-107); Globulin 2.9 g/dL (1.3-4.6); Glomerular Filtration Rate 111.5 mL/min (90-130); Glucose 139 mg/dL (65-115); Osmolality Calculated 285 mOsm/kg (285-295); Potassium 4.4 mmol/L (3.5-5.1); Sodium 138 mmol/L (136-145); Total Bilirubin 0.2 mg/dL (0.15-1.2); Total Protein 6.4 g/dL (6.6-8.7)
[2019-12-31] MEDS: sucralfate 1 gm/10 mL Oral Liq UDC PO ×2 (06:06→11:03)
--- NOTE | 2019-12-31 06:13 | PC.NURSE ---
End of shift: Patient remains alert and oriented. Vitals are stable. Patient does require more oxygen on exertion. patient encouraged to get out of bed to use bedside commode. Will continue to monitor.
--- NOTE | 2019-12-31 08:10 | P.DS_ITS ---
Discharge Providers Date of Admission: 11/30/19 12:16 Date of Discharge: December 31, 2019 Attending Provider at Admission: Cathleen Gil MD Attending Provider at Discharge: Silverio Spain MD Primary Care Provider: Silverio Spain MD Diagnoses at Discharge Discharge Diagnosis (1) Intermittent atrial fibrillation: Status: Acute (2) Squamous cell lung cancer: Status: Chronic Qualifiers: Laterality: right Qualified Code(s): C34.91 - Malignant neoplasm of unspecified part of right bronchus or lung (3) Anemia: Status: Acute Qualifiers: Anemia type: unspecified type Qualified Code(s): D64.9 - Anemia, unspecified (4) History of pulmonary embolism: Status: Acute (5) Obstructive pneumonia: Status: Acute (6) Pneumonitis: Status: Acute (7) Hypoxia: Status: Acute Other Information Additional DC diagnoses/information: 1. Squamous cell carcinoma of the lung 2. Hypoxia 3. Postobstructive pneumonia 4. Pneumonitis 5. Anemia 6. Atrial flutter with RVR 7. Anxiety Reason for Visit Reason for Visit: SOB Hospital Course Hospital Course: The patient has had an extended course and was admitted to the hospital on 11/30/2019. At that time he was found to have a postobstructive pneumonitis and was started on IV antibiotics of Zosyn, levofloxacin and vancomycin. The patient showed mild improvement with this, however continued to worsen so antibiotics were changed and eventually the patient has ended up on cefepime 2 g twice daily and Bactrim that has helped to treat his pneumonia most effectively. I would recommend that he continues with both of these. Sputum cultures were negative. The patient was placed on steroids as well due to underlying COPD and this has helped with his asthma. He is currently on Solu-Medrol 20 mg twice a day. The patient has had significant hypoxia and at one point was in the ICU with high flow nasal cannula oxygen that has gradually improved with treatment of the pneumonia. The patient however continues to need anywhere from 3.5 to 5 L of oxygen at rest and with any exertion his oxygen level quickly desaturate necessitating 8 to 10 L of oxygen just to bring his oxygen levels back up. This exertion includes getting from bed to the bedside chair. Currently he needs significant assistance with this. The patient has an underlying pneumonitis he has not received not to chemotherapy but did receive radiation therapy. He has not received any since being in the hospital. Pneumonitis is primarily on the left lower lung, however his radiation was in the right lung. Lasix therapy was tried to see if this helped with his overall breathing and it did help temporarily at 1 point during his stay, however has not been necessary more recently. The patient is currently euvolemic. Patient was anemic and received blood products while in the hospital. His hemoglobin has been stable over the last 3 weeks approximately. The patient had an episode of oral thrush that cleared quickly with oral nystatin swish and swallow. The patient had an episode of atrial flutter with RVR and he had been on digoxin and metoprolol, however this was not treating it properly and he eventually had elevated digoxin levels. For this reason he was taken off of the digoxin and switched to flecainide. Flecainide his done a good job at controlling his heart rate along with a low-dose of metoprolol. Previously higher doses of beta- blockers had caused problems with hypotension. I have spoken with the patient regarding his overall long-term prognosis with lung cancer and he continues to want to proceed with therapy. We will transfer the patient to [facility] for further care as his oxygen levels are having problems with improving. Our hope is that his oxygen levels can stabilize better so that he can complete his ADLs in the home and not have significant desaturations with any level of exertion. Please feel free to contact me with any questions regarding the patient. Physical Exam Narrative: EXAM NARRATIVE: General: Alert and oriented x3. On nasal cannula oxygen at 4.5 L/min and saturating 92%. Mouth: Oral mucosa without signs of thrush Cardiac: Tachycardic rate with irregular rhythm. Lungs: Decreased air entry bilaterally with mild diffuse wheezes. No crackles in the bases. Diffuse rhonchi Abdomen: Soft, nontender without masses noted. Extremities: No edema Discharge Data Data Completed and Pending: Completed Studies During Hospitalization Category Date Time Status CT angio chest PE protcl 07834 Rout ine Cat Scan 12/15/19 11:[address] angio chest PE protcl 16580 Urge nt Cat Scan 11/30/19 08:[address] head wo con* 7 0450 Routine Cat Scan 12/20/19 16:30 Completed XR chest 1V radha ble 08012 Routine Exams 12/05/19 14:51 Completed XR chest 1V radha ble 10454 Routine Exams 12/09/19 08:30 Completed XR chest 1V radha ble 07743 Routine Exams 12/14/19 09:01 Completed XR chest 1V radha ble 94292 Urgent Exams 11/30/19 08:20 Completed Pending at discharge Category Date Time Status Miscellaneous Kathy t Routine Lab 12/19/19 12:01 Received Labs from last 24 hours 12/31/19 12/31/19 03:36 03:36 WBC 18.5 H RBC 3.94 L Hgb 10.8 L Hct 35.9 L MCV 91.1 MCH 27.4 L MCHC 30.1 RDW 20.4 H Plt Count 172 MPV 9.3 Neut % (Auto) 83.8 Lymph % (Auto) 9.8 [place] % (Auto) 4.4 Eos % (Auto) 0.3 Baso % (Auto) 0.2 Neut # (Auto) 15.51 H Lymph # (Auto) 1.8 [place] # (Auto) 0.8 Eos # (Auto) 0.1 Baso # (Auto) 0.0 Nucleated RBC % (a uto) 0 Nucleated RBCs # 0.0 Sodium 138 Potassium 4.4 Chloride 98 Carbon Dioxide 28 Anion Gap 16.4 BUN 21 Creatinine 0.7 GFR Calculation 111.5 Glucose 139 H Calculated Osmolal ity 285 Calcium 9.1 Total Bilirubin 0.2 AST 20 ALT 34 Alkaline Phosphata se 113 Total Protein 6.4 L Albumin 3.5 Globulin 2.9 Vitals: Last Vital Signs Temp 98.2 F 12/31/19 06:59 Pulse 107 H 12/31/19 06:59 Resp 22 H 12/31/19 06:59 BP 99/66 12/31/19 06:59 Pulse Ox 98 12/31/19 06:59 Discharge Plan Discharge Patient Disposition: Xfer Intermediate Care Fac Condition: Stable Prescriptions: New alprazolam 0.25 mg Tablet 0.125 mg PO TID PRN (Reason: Anxiety) Qty: 30 RF: 0 zolpidem 5 mg Tablet 5 mg PO BEDTIME PRN (Reason: Anxiety) Qty: 30 RF: 0 pantoprazole 40 mg Tablet,Delayed Release (Dr/Ec) 40 mg PO DAILY Qty: 30 RF: 0 sulfamethoxazole-trimethoprim 800-160 mg Tablet 1 tab PO BID Qty: 30 RF: 0 promethazine 25 mg Tablet 25 mg PO Q6H PRN (Reason: Nausea) Qty: 30 RF: 0 flecainide 100 mg Tablet 50 mg PO Q12H Qty: 60 RF: 0 magnesium hydroxide [Milk of Magnesia] 400 mg/5 mL Suspension 30 ml PO DAILY PRN (Reason: Constipation) Qty: 3000 RF: 0 olanzapine 10 mg Tablet 10 mg PO BEDTIME Qty: 30 RF: 0 levalbuterol HCl 1.25 mg/3 mL Solution For Nebulization 1.25 mg inhalation Q6H.RESPIRATORY Qty: 72 RF: 0 metoprolol tartrate 25 mg Tablet 25 mg PO BID Qty: 60 RF: 0 Solu-Medrol (PF) 40 mg/mL Recon Soln 20 mg IVP Q12H Qty: 25 RF: 0 sucralfate 100 mg/mL Suspension 1 g PO AC&BEDTIME Qty: 300 RF: 0 Continued alprazolam [Xanax] 0.5 mg tablet 0.5 mg PO BID PRN (Reason: anxiety) Qty: 60 RF: 1 Zoloft 100 mg tablet 200 mg PO DAILY Qty: 30 RF: 2 multivitamin [Multiple Vitamins] Tablet 1 tab PO DAILY RF: 0 ferrous sulfate 325 mg (65 mg iron) tablet 325 mg PO BID Qty: 60 RF: 2 tamsulosin 0.4 mg capsule 0.4 mg PO BEDTIME RF: 0 sennosides-docusate sodium 8.6-50 mg capsule 1 tab-cap PO BID Qty: 60 RF: 6 oxycodone-acetaminophen 5-325 mg Tablet 1 - 2 tab PO Q4H PRN (Reason: Moderate To Severe Pain) Qty: 120 RF: 0 prochlorperazine maleate 10 mg tablet 10 mg PO Q4H PRN (Reason: mild nausea) RF: 0 ondansetron 8 mg tablet,disintegrating 8 mg PO Q8H PRN (Reason: Nausea) RF: 0 Eliquis 5 mg Tablet 2.5 mg PO BID Qty: 60 RF: 0 Changed zolpidem 5 mg tablet 5 mg PO BEDTIME PRN (Reason: Sleep) Qty: 30 RF: 0 Discontinued Zyprexa 15 mg tablet 15 mg PO BEDTIME Qty: 30 RF: 2 metoprolol tartrate 25 mg tablet 12.5 mg PO BID RF: 0 lorazepam 1 mg tablet 0.5 - 1 mg PO TID PRN (Reason: Anxiety) RF: 0 digoxin 250 mcg (0.25 mg) tablet 250 mcg PO DAILY Qty: 30 RF: 0 Other Ambulatory Orders: DME: Oxygen (Order) Location: None Selected Ordered By: Dimas Demarco Referrals: [facility] [Other] - 4-7 days (you have a scheduled follow up appointment for at 09:30am .important message from thir office : hold medication your,Eliquis !for 24 hour prior to this test.) [facility] [place] [facility] [place] [facility] [place] Silverio Spain MD [Primary Care Provider] - Discharge Diet: Regular Discharge Activity: Increase activity as tolerated Patient Instructions: Lung Cancer (DC), Pneumonia (GEN), Pneumonia Stoplight, Using Oxygen at Home Activity Restrictions/Additional Instructions: Patient is to be transferred to [facility] in [place]. 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
[2019-12-31] MEDS: sulfamethoxazole-trimeth DS 160-800 mg Tablet 1 TAB PO (08:46)
[2019-12-31] MEDS: pantoprazole DR 40 mg Tablet PO (08:46)
[2019-12-31] MEDS: multivitamin therapeutic Tablet 1 TAB PO (08:46)
[2019-12-31] MEDS: metoprolol tartrate 25 mg Tablet PO (08:46)
[2019-12-31] MEDS: apixaban 5 mg Tablet 2.5 MG PO (08:46)
[2019-12-31] MEDS: sennosides-docusate Tablet 1 TAB PO (08:46)
[2019-12-31] MEDS: guaiFENesin 600 mg Tablet PO (08:47)
[2019-12-31] MEDS: sertraline 100 mg Tablet 200 MG PO (08:47)
[2019-12-31] MEDS: levalbuterol 1.25 mg/3 mL Neb INHALATION ×2 (09:17→14:29)
[2019-12-31] MEDS: oxyCODONE-APAP 5-325 mg Tablet 1 TAB PO (10:56)
[2019-12-31] MEDS: flecainide 100 mg Tablet 50 MG PO (10:58)
--- NOTE | 2019-12-31 15:39 | PC.SOCIAL ---
IMM completed on 12/31/2019 @ 6806. Copy of rights given to pt.
--- NOTE | 2019-12-31 16:50 | PC.NURSE ---
pt transferred to other nursing facility for discharge questions.
== END 2019-12-31 16:30 | DRG 193 ==
LOC: ER 11:21 → MEDSURG 12:31 → ICU 12-14 09:16 → MEDSURG 12-19 15:44 → CSU 12-21 09:09
PROVIDERS: Emergency Medicine; Internal Medicine; Student in an Organized Health Care Education/Training Program; Admitting Provider Family Medicine; PCP Family Medicine; Visit Provider Family Medicine
DX: J18.9 Pneumonia, unspecified organism (principal); J96.90 Respiratory failure, unspecified, unspecified whether with hypoxia or hypercapnia; C34.91 Malignant neoplasm of unspecified part of right bronchus or lung; J44.0 Chronic obstructive pulmonary disease with (acute) lower respiratory infection; I48.92 Unspecified atrial flutter; I48.19 Other persistent atrial fibrillation; D64.9 Anemia, unspecified; Z86.711 Personal history of pulmonary embolism; Z79.01 Long term (current) use of anticoagulants; Z92.3 Personal history of irradiation; Z91.81 History of falling; Z87.891 Personal history of nicotine dependence; Z20.828 Contact with and (suspected) exposure to other viral communicable diseases; F41.1 Generalized anxiety disorder
CPT/HCPCS: 12345; 36415; 36430; 36591; 36600; 70450; 71045; 71275; 80048; 80051; 80053; 80162; 80202; 81003; 82810; 83605; 83615; 83735; 83880; 83986; 84100; 84484; 85025; 86141; 86403; 86850; 86900; 86920; 87040; 87070; 87205; 87426; 87449; 87641; 87798; 93005; 94640; 94660; 94760; 96375; 97110; 97161; 97165; 97530; 97535; 99283; J0692; J0743; J1642; J1940; J1956; J2060; J2405; J2543; J2920; J2930; J3370; J3490; J7030; J7050; J7512; J7614; P9016; Q9967

== ENCOUNTER → 2020-01-21 07:52 | Outpatient (BNVA) | payer MEDICARE, MEDICAID, SELFPAY | PROVIDERS: PCP Family Medicine; Visit Provider Nurse Practitioner | DX: F33.2 Major depressive disorder, recurrent severe without psychotic features (principal) | CPT/HCPCS: 99213 ==

== ENCOUNTER 2020-01-27 15:59 | Outpatient (CLI) | payer MEDICARE, MEDICAID, SELFPAY ==
[2020-01-27 16:34] LABS: Basophils # 0.1 10^3/uL (0.0-0.1); Basophils % 0.4 %; Eosinophils # 0.1 10^3/uL (0.0-0.8); Eosinophils % 0.9 %; Hematocrit 39.2 % (42.0-52.0); Hemoglobin 12.1 g/dL (11.7-16.6); Lymphocytes # 1.6 10^3/uL (0.8-4.8); Lymphocytes % 13.3 %; Mean Corpuscular HGB Conc 30.9 g/dL (30.0-36.0); Mean Corpuscular Hemoglobin 29.4 pg (28.0-34.0); Mean Corpuscular Volume 95.1 fL (80-94); Mean Platelet Volume 9.3 fL (7.4-10.4); Monocytes % 8.2 %; Neutrophils # 9.28 10^3/uL (1.8-7.7); Neutrophils % 76.3 %; Nucleated Red Blood Cells % 0 %; Platelet Count 254 10^3/cmm (130-400); Red Blood Count 4.12 10^6/uL (4.1-5.3); White Blood Count 12.2 10^3/uL (4.0-10.0)
[2020-01-27 17:14] LABS: Alanine Aminotransferase 26 U/L (0-41); Alkaline Phosphatase 102 IU/L (40-130); Anion Gap 14.2 (5-19); Aspartate Amino Transferase 18 U/L (0-40); Blood Urea Nitrogen 18 mg/dL (8-23); Calcium 9.1 mg/dL (8.5-10.5); Carbon Dioxide 28 mmol/L (22-29); Chloride 102 mmol/L (98-107); Globulin 2.9 g/dL (1.3-4.6); Glomerular Filtration Rate 133.2 mL/min (90-130); Glucose 125 mg/dL (65-115); Osmolality Calculated 293 mOsm/kg (285-295); Potassium 4.2 mmol/L (3.5-5.1); Sodium 140 mmol/L (136-145); Total Bilirubin 0.2 mg/dL (0.15-1.2); Total Protein 6.9 g/dL (6.6-8.7)
== END 2020-01-27 16:00 | disposition home or self-care (01) ==
PROVIDERS: PCP Family Medicine; Visit Provider Internal Medicine Hematology & Oncology
DX: C34.11 Malignant neoplasm of upper lobe, right bronchus or lung (principal); C77.1 Secondary and unspecified malignant neoplasm of intrathoracic lymph nodes
CPT/HCPCS: 36591; 80053; 85025

== ENCOUNTER 2020-01-28 08:37 | Outpatient (CLI) | payer MEDICARE, MEDICAID, SELFPAY ==
--- NOTE | 2020-01-28 17:11 | ONC FU_ITS ---
Dr. Sibley follow up note Patient: Chalino Jeffrey Unit #: [id number]: 1950 Dicatated By: Samia Sibley M.D.Date of Visit:Jan 28, 2020 Onc Med Follow-up/Prog Note History of Present Illness: Mr. Chalino Jefrfey, is a 69-year-old gentleman with history of hemoptysis, initially noticed in mid July 2019,, it was progressive in nature, as per patient he went to hospital and on 08/13/[address] angiogram which showed no pulmonary emboli but 6.2 x 3.9 x 4.8 cm right superior hilar/upper lobe mass with obstruction of right upper lobe bronchus with postobstructive pneumonia/atelectasis and also volume. Moderate mediastinal and right hilar metastatic adenopathy and probable pleural-based metastasis over the right upper lung field. Moderate centrilobular emphysema. Patient was referred to pulmonology and underwent bronchoscopy on 08/15/2019 biopsy was obtained from the mediastinal lymph nodes and right hilar mass and bronchial washing all confirmed non-small cell lung cancer with immunophenotype consistent with squamous cell carcinoma. Patient decided to go to [facility] far evaluation and management, as per patient he was informed that he has stage IIIB disease so he is not a candidate for surgery, so chemoradiation was recommended but prior to that staging workup with CT PET scan and MRI scan of the head was recommended. Patient decided to come back to [place] for further workup and management. Patient still complaining of mild hemoptysis especially with cough otherwise no fever or chills, no nausea or vomiting, no chest pain, no headaches or blurred vision or double vision. No jaundice, no bony pains, appetite is good. Patient also recently diagnosed with persistent tachycardia etiology unknown Patient has history of heavy smoking the past but quit in 2015 since then he was smoking e-cigarette which he quit recently too. Staging CT PET scan done on September 16, 2019 showed large FDG avid anterior right upper lobe mass extending into the mediastinum measuring 7.7 x 6.7 cm. There are few avid mediastinal precarinal and pretracheal nodes the largest of which measures 1.4 cm. There is a left supraclavicular FDG avid 1.2 cm node. There is a weakly avid posterior left upper lobe 8 mm node. There is a posterior basal left upper lobe perifissural 6 mm node that is non-avid. No evidence of distant metastatic disease otherwise below diaphragm. MRI scan of the head done on September 16, 2019 showed no evidence of metastatic disease Because of persistent off and on hemoptysis and probable post obstructive pneumonitis, he was referred to radiation oncology for palliative radiation therapy which was started on October 06, 2019, and patient was also referred to Dr. everett for Port-A-Cath placement and left supraclavicular lymph node biopsy, patient underwent left supraclavicular biopsy on October 09, 2019 and final pathology report came back benign fibrous soft tissue, adipose fat and dystrophic calcification, no malignancy identified. ? missed lymphnode versus inflammation Patient was admitted to hospital on October 15, 2019 because of postobstructive pneumonia, tachycardia and leukocytosis, chest x-ray done on October 15, 2019 shows dense right hilum, airspace consolidation right upper lobe with volume loss, he was treated with broad-spectrum antibiotics Zosyn, levofloxacin and vancomycin, after 2 days it did not make significant improvement so Zosyn was changed to imipenem with that he started improving his blood count started improving white blood count dropped from 26,000-15,000 and patient was also receiving palliative radiation therapy for obstructive pneumonitis, his dyspnea improved and patient was also given 2 units of packed RBCs and continue with oral iron supplement. Patient also had CT angiogram done on October 16, 2019 which showed no pulmonary embolus identified, interval increase in size of right apical and right upper chest mass with chest wall invasion of anterior lateral second and third rib, moderate right pleural effusion, and new right lower lobe 5.7 mm noncalcified pulmonary nodule. Patient has history of atrial fibrillation now on Eliquis and being followed by Dr. Gutierrez, nut steamer. CT scan of the head done on November 30, 2019 showed no evidence of brain mets CTA done on November 30, 2019 showed no evidence of pulmonary embolism, continued slow improvement of dense neoplastic consolidation in the right upper lobe with volume loss and extension to encase the right hilar structures. Diffuse worsening of opacifications throughout the left lung consistent with superimposed pneumonia. Mild diffuse esophageal mucosal thickening. patient Started on combined chemoradiation on October 06, 2019 with weekly carboplatin/Taxol, patient could not receive recommended weekly carboplatin Taxol concurrent with radiation therapy because of off and on sickness. but completed his radiation therapy on November 19, 2019. And last dose of weekly carboplatin and Taxol was given on November 13, 2019 Came for follow-up, patient was admitted to hospital on November 30, 2019 with postobstructive pneumonitis and intermittent atrial fibrillation, patient was treated with broad-spectrum antibiotics Zosyn, levofloxacin, vancomycin and patient showed some improvement and then eventually switched to cefepime and Bactrim with that her pneumonia improved he was also treated with steroids and her other issue was atrial fibrillation/atrial flutter with RVR, patient was on digoxin and metoprolol and he was switched to flecainide and low-dose metoprolol with excellent heart rate control. 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 Patient said he was referred to [place] for right lung biopsy but because of hospitalization he could not go. Medications: Digoxin 1 Tablet (of 125 mcg) Oral daily, Eliquis 1 Tablet (of 2.5 mg) Oral b.i.d., Ferrous Sulfate 1 Tablet (of 325 (65 fe) mg) Tablet Oral b.i.d., Flomax 1 Tablet (of 0.4 mg) Capsule Oral daily, Metoprolol Tartrate 0.5 Tablet (of 25 mg) Oral b.i.d., oxyCODONE-Acetaminophen 1 Tablet (of 5-325 mg) Tablet Oral q 4 to 6 hours PRN, Xanax 1 Tablet (of 0.5 mg) Oral b.i.d. PRN, Zoloft 2 Tablet (of 100 mg) Oral daily, ZyPREXA 1 Tablet (of 10 mg) Oral daily Allergies: No Known Allergies. Review of Systems: Review of Systems is not available for this patient. Vital Signs: Performed on Jan 28, 2020 16:08 Height - 67.00 in Weight - 118.2 lbs (LOW) BSA - 1.62 sq.m BMI - 18.51 Temperature - 98.9 F (HIGH) Pulse - 118 /min (HIGH) Respiration - 20 /min BP - 101/69 mm(hg) O2 Sat - 98 % Pain - 0 Performance Status: 3 - Capable of only limited self-care, confined to bed or chair more than 50% of waking hours. (ECOG) Physical Examination: ENMT - Poor oral hygiene, no mucositis or thrush or jaundice, Respiratory - Poor air entry with mild wheezing bilaterally, Cardiovascular - Irregular heart rate/rhythm, Abdomen - Soft, bowel sounds present, Extremities - Trace edema bilaterally. Lab/Imaging: Test performed on Nov 12, 2019 10:50 Sodium 133 mmol/L Potassium 4.4 mmol/L Chloride 97 mmol/L CO2 23 mmol/L Anion Gap 17.4 BUN 19 mg/dL Creatinine 0.8 mg/dL Cr Clearance (Est) 67.3600 mL/min eGFR 95.6 mL/min Glucose 230 mg/dL Calcium 9.2 mg/dL Protein, Total 7.7 g/dL Albumin 3.8 g/dL Globulin 3.9 g/dL Bilirubin, Total 0.2 mg/dL ALT (SGPT) 21 U/L AST (SGOT) 16 U/L Alkaline Phosphatase 137 IU/L Test performed on Nov 04, 2019 11:00 WBC 13.4 10 3/uL RBC 4.36 10 6/uL HGB 10.9 g/dL HCT 36.9 % MCV 84.6 fL MCH 25.0 pg MCHC 29.5 g/dL RDW 15.9 % Platelet Count 298 10 3/cmm MPV 9.8 fL Neutrophils 11.38 10 3/uL Lymphocytes 0.8 10 3/uL Monocytes 0.8 10 3/uL Eosinophils 0.3 10 3/uL Basophils 0.1 10 3/uL Neutrophil % 84.8 % Lymphocyte % 6.2 % Monocyte % 6.0 % Eosinophil % 1.9 % Basophils % 0.4 % NRBC % 0 % Impression: squamous cell carcinoma Per bronchoscopy done on 08/15/2019 showed fine-needle aspiration from lymph node, station 7, station 4R, right hilar mass, bronchial brushing right upper lobe, all confirmed squamous cell carcinoma Chest CT angiogram done on 08/13/2019 showed 6.2 x 3.9 x 4.8 cm right suprahilar/upper lobe mass with obstruction of right upper lobe bronchus with postobstructive pneumonia/atelectasis. Moderate mediastinal and right hilar metastatic lymphadenopathy Probable pleural-based metastasis over right upper lung field. No pulmonary embolism. Atrial fibrillation on Eliquis Plan: Discussed with patient regarding his labs white blood count 12.2 hemoglobin 12.1 hematocrit 39.2 platelets 254,000 CMP within normal limits Clinically, patient does not mild distress due to generalized weakness and fatigue, requiring home oxygen. Patient was in hospital for month with obstructive pneumonitis/atrial fibrillation, now recovering. Patient has completed combined chemoradiation with weekly carboplatin Taxol on November 19, 2019. CTA chest done on November 30, 2019 to rule out pulmonary embolism showed improvement in right hilar mass. Treatment options, were discussed but concern is underlying her extensive pulmonary disease and deconditioning, at this point we will request pulmonology to evaluate him to optimize his pulmonary function, if possible. And the patient's overall performance status and nutrition improves, will consider follow-up CT scan of chest to assess disease status and then discussed about treatment options including immunotherapy or palliative chemotherapy or observation or hospice care. In the meantime we will continue supportive care patient return to clinic in 2 weeks for further discussion, with CBC CMP Signed By: Samia Sibley M.D. <<Signature on File>>
== END 2020-01-28 08:38 | disposition home or self-care (01) ==
LOC: ONCMED 08:38
PROVIDERS: PCP Family Medicine; Visit Provider Internal Medicine Hematology & Oncology
DX: C34.11 Malignant neoplasm of upper lobe, right bronchus or lung (principal); C77.1 Secondary and unspecified malignant neoplasm of intrathoracic lymph nodes; I48.91 Unspecified atrial fibrillation; Z79.01 Long term (current) use of anticoagulants; Z99.81 Dependence on supplemental oxygen; Z92.3 Personal history of irradiation; Z92.21 Personal history of antineoplastic chemotherapy
CPT/HCPCS: 99214

== ENCOUNTER 2020-01-29 21:12 | Inpatient (IN) | payer MEDICARE, MEDICAID, SELFPAY ==
[2020-01-29] VITALS (12 sets, daily range): BP systolic 114; BP diastolic 74; PULSE 105–129; RESP 19–40; TEMP 37.4; O2SAT 93–100; BMI 18.8
--- NOTE | 2020-01-29 21:17 | XR_ITS ---
WS: [id number] Portable AP upright chest, 01/29/2020 Clinical Data: fever Comparison: Portable chest, 12/14/2019. Findings: There is density extending from the right hilum and right upper lobe with pleural thickenin g. The appearance of this density has not changes may represent chronic fibrotic change. The right di aphragm is elevated. Left lung shows diffuse interstitial opacities which could represent chronic juany nge, pulmonary vascular congestion or pneumonia. A left Port-A-Cath is in position ending in the supe rior vena cava. There are monitor leads on the chest wall. The patient has had an anterior cervical d isc fusion and there is a screw in the lateral aspect of the left clavicle unchanged XR/XR chest 1V portable [id number] Impression: 1. Probable scarring and fibrosis in the right upper lobe with right lung volum e loss and elevation of the right diaphragm unchanged. 2. Chronic interstitial change throughout the left lung. 3. No change in left Port-A-Cath.
--- NOTE | 2020-01-29 21:19 | ECG_ITS ---
[facility] Test Date: 2020-01-29 Pat Name: Chalino Jeffrey Department: Room: Gender: Male Doctor Chiropractic: : 1950 Requested By: Wagner Phelps Order Number: [id number] Vicky MD: aKit Angela M.D. Measurements Intervals [place] Rate: 122 P: 65 [place]: 173 QRS: -5 QRSD: 88 T: 70 QT: 396 QTc: 566 Interpretive Statements SINUS TACHYCARDIA POSSIBLE RIGHT VENTRICULAR CONDUCTION DELAY [RSR (QR) IN V1/V2] NONSPECIFIC ST & T-WAVE ABNORMALITY Compared to ECG 12/14/2019 15:45:41 No significant changes Electronically Signed On 01-30-2020 18:05:45 CDT by Kait Angela M.D. [id number]
--- NOTE | 2020-01-29 21:23 | W.ED.SOB ---
HPI - SOB/Dyspnea General: Chief Complaint: Shortness of Breath/Dyspnea Stated Complaint: diff breathing Time Seen by Provider: 01/29/20 21:14 Source: patient and EMS Mode of arrival: EMS Limitations: no limitations History of Present Illness: HPI Narrative: 69-year-old male with history of lung cancer states he been having shortness of breath along with cough and fever over the last 2 days. Patient is on a nonrebreather but states he felt improved after breathing treatment and is able to speak in 5-7 word sentences currently. Patient Associated symptoms: Reports fever(s); Deny abdominal pain, chest pain, nausea or vomiting Review of Systems Const: Reports: fever(s) and body aches Eyes: Denies: blurry vision or eye discomfort ENMT: Denies: throat pain or dental pain Card: Denies: chest pain Resp: Reports: dyspnea, non-productive cough and wheezing GI: Denies: abdominal pain, nausea, vomiting or diarrhea : Denies: dysuria Musc: Denies: neck pain or back pain Skin/Breast: Denies: rash Neuro: Denies: headache(s) Psych: Denies: depression Ignacio/Lymph: Denies: easy bruising All/Imm: Denies: urticaria PFSH ED PFSH: Medical History Anemia Anorexia nervosa, restricting type Closed left clavicular fracture Generalized anxiety disorder H/O clavicle fracture with hardware History of pulmonary embolism Intermittent atrial fibrillation Major depressive disorder, recurrent severe without psychotic features Sinus tachycardia SOB (shortness of breath) Squamous cell lung cancer Tachycardia Surgical History H/O neck surgery History of shoulder surgery Hx of cholecystectomy Family History Mother Cancer Bladder Denies family history of Anesthesia complication Bleeding disorder Social History Smoking and tobacco status: former smoker Quit status (tobacco): has quit using tobacco Former quit date comment: 3 months ago Alcohol intake: former Lives independently: Yes Household members: children Current occupational status: disabled History of recent travel: No Current gender identity: Male Physical Exam Const: COMMON NORMALS: patient oriented x3 GENERAL APPEARANCE: in distress and ill appearing HENMT: COMMON NORMALS: normocephalic and atraumatic HEAD & SCALP: normocephalic and atraumatic Eye: COMMON NORMALS: Equal, round and reactive pupils present and EOMs intact bilaterally PUPIL: Yes Equal, round and reactive pupils present Neck/C-Spine: COMMON NORMALS: full ROM and supple Chest: COMMONS NORMALS: normal inspection of the chest and normal palpation of entire chest wall Resp: COMMON NORMALS: No retractions EFFORT & INSPECTION: Yes tachypneic and Yes respiratory distress AUSCULTATION: wheezes Cardio: COMMON NORMALS: regular rate, regular rhythm and No murmurs present (Cardio) RATE: regular rate RHYTHM: regular rhythm GI: COMMON NORMALS: Normal to inspection, nondistended, normoactive bowel sounds present, Soft to palpation, non-tender and no masses PALPATION: Yes Soft to palpation Extremity: COMMON NORMALS: normal to inspection and full ROM Neuro: COMMON NORMALS: patient oriented x3, moves all extremities and no focal motor deficits Psych: COMMON NORMALS: mental status grossly normal, Normal thought process present and cooperative THOUGHT PROCESS: Normal thought process present Skin: COMMON NORMALS: no rashes or lesions noted and no wounds GENERAL SKIN EXAM: no rashes or lesions noted Course Vital Signs: Vital signs: Vital Signs Temperature 99.4 F 01/29/20 21:19 Pulse Rate 111 H 01/29/20 23:00 Respiratory Rate 24 H 01/29/20 23:00 Blood Pressure 114/74 01/29/20 23:00 Pulse Oximetry 99 01/29/20 23:00 MDM - SOB/Dyspnea MDM Narrative: Medical decision making narrative: Patient presents here with shortness of breath along with respiratory distress. X-ray shows a possible pneumonia he is febrile here. Patient blood cultures drawn and started on antibiotics. He is much improved on BiPAP I feel he is stable for the floor. His lactate here is normal he is no signs of septic shock. I spoke to his physician Dr. Spain and will admit to him. Lab Data: Labs: Lab Results 01/29/20 01/29/20 01/29/20 Range/Units 20:12 21:18 21:18 WBC 12.9 H (4.0-10.0) 10^3/ uL RBC 3.80 L (4.1-5.3) 10^6/u L Hgb 11.4 L (11.7-16.6) g/dL Hct 36.4 L (42.0-52.0) % MCV 95.8 H (80-94) fL MCH 30.0 (28.0-34.0) pg MCHC 31.3 (30.0-36.0) g/dL RDW 17.4 H (12.1-15.1) % Plt Count 249 (130-400) 10^3/c mm MPV 9.5 (7.4-10.4) fL Neut % (Auto) 79.1 % Lymph % (Auto) 11.4 % [place] % (Auto) 8.5 % Eos % (Auto) 0.2 % Baso % (Auto) 0.2 % Neut # (Auto) 10.23 H (1.8-7.7) 10^3/u L Lymph # (Auto) 1.5 (0.8-4.8) 10^3/u L [place] # (Auto) 1.1 H (0.2-0.9) 10^3/u L Eos # (Auto) 0.0 (0.0-0.8) 10^3/u L Baso # (Auto) 0.0 (0.0-0.1) 10^3/u L Nucleated RBC % (a uto) 0 % Nucleated RBCs # 0.0 /100WBC PT 16.50 H (12.1-14.9) SECO NDS INR 1.29 H (0.8-1.2) Specimen Type Sample Site ABG pH (7.35-7.45) ABG pCO2 (35-45) mmHg ABG pO2 (80.0-100.0) mmH g ABG HCO3 (22-26) mmol/L ABG Base Excess (-2.0-2.0) mmol/ L Zafar Test Hematocrit (42-52) % O2 Delivery Device FiO2 % Professor/Nurse Anesthetist ID Sodium (136-145) mmol/L Potassium (3.5-5.1) mmol/L Chloride (98-107) mmol/L Carbon Dioxide (22-29) mmol/L Anion Gap (5-19) BUN (8-23) mg/dL Creatinine (0.7-1.2) mg/dL GFR Calculation (90-130) mL/min Glucose (65-115) mg/dL Calculated Osmolal ity (285-295) mOsm/k g Lactate (0.5-2.2) mmol/L Calcium (8.5-10.5) mg/dL Total Bilirubin (0.15-1.2) mg/dL AST (0-40) U/L ALT (0-41) U/L Alkaline Phosphata se (40-130) IU/L NT-Pro-B Natriuret Pep (0-125) pg/mL Total Protein (6.6-8.7) g/dL Albumin (3.5-5.2) g/dL Globulin (1.3-4.6) g/dL SARS-CoV-2 Ag (Rap id) Negative (Negative) 01/29/20 01/29/20 01/29/20 Range/Units 21:18 22:12 22:48 WBC (4.0-10.0) 10^3/ uL RBC (4.1-5.3) 10^6/u L Hgb (11.7-16.6) g/dL Hct (42.0-52.0) % MCV (80-94) fL MCH (28.0-34.0) pg MCHC (30.0-36.0) g/dL RDW (12.1-15.1) % Plt Count (130-400) 10^3/c mm MPV (7.4-10.4) fL Neut % (Auto) % Lymph % (Auto) % [place] % (Auto) % Eos % (Auto) % Baso % (Auto) % Neut # (Auto) (1.8-7.7) 10^3/u L Lymph # (Auto) (0.8-4.8) 10^3/u L [place] # (Auto) (0.2-0.9) 10^3/u L Eos # (Auto) (0.0-0.8) 10^3/u L Baso # (Auto) (0.0-0.1) 10^3/u L Nucleated RBC % (a uto) % Nucleated RBCs # /100WBC PT (12.1-14.9) SECO NDS INR (0.8-1.2) Specimen Type Arterial Sample Site Brachial, right ABG pH 7.38 (7.35-7.45) ABG pCO2 37.5 (35-45) mmHg ABG pO2 155.0 H (80.0-100.0) mmH g ABG HCO3 22.4 (22-26) mmol/L ABG Base Excess -2.4 L (-2.0-2.0) mmol/ L Zafar Test N/a Hematocrit 28.7 L (42-52) % O2 Delivery Device Bipap FiO2 45.0 % Professor/Nurse Anesthetist ID Harkr Sodium 137 (136-145) mmol/L Potassium 4.1 (3.5-5.1) mmol/L Chloride 100 (98-107) mmol/L Carbon Dioxide 24 (22-29) mmol/L Anion Gap 17.1 (5-19) BUN 12 (8-23) mg/dL Creatinine 0.8 (0.7-1.2) mg/dL GFR Calculation 95.6 (90-130) mL/min Glucose 210 H (65-115) mg/dL Calculated Osmolal ity 290 (285-295) mOsm/k g Lactate 0.9 (0.5-2.2) mmol/L Calcium 9.4 (8.5-10.5) mg/dL Total Bilirubin 0.4 (0.15-1.2) mg/dL AST 17 (0-40) U/L ALT 19 (0-41) U/L Alkaline Phosphata se 96 (40-130) IU/L NT-Pro-B Natriuret Pep 501 H (0-125) pg/mL Total Protein 6.8 (6.6-8.7) g/dL Albumin 3.7 (3.5-5.2) g/dL Globulin 3.1 (1.3-4.6) g/dL SARS-CoV-2 Ag (Rap id) (Negative) EKG Data^: EKG 1: Attestation: I personally reviewed and interpreted this EKG as follows: EKG Interpretation Date: 01/29/20 EKG interpretation time: 21:35 Interpretation: sinus tach hr [address] or t wave abnormalities qrs 88 qtc 469 Discharge Plan Discharge Patient Disposition: Admitted As Inpatient Clinical Impression: Lung mass, Pneumonia, Acute respiratory distress Condition: Stable Referrals: Silverio Spain MD [Primary Care Provider] - Coding Level of Care Code ED Engineering Program Manager for Chg Fwd Exam Comprehensive
[2020-01-29 21:32] LABS: Basophils % 0.2 %; Eosinophils % 0.2 %; Hematocrit 36.4 % (42.0-52.0); Hemoglobin 11.4 g/dL (11.7-16.6); Lymphocytes # 1.5 10^3/uL (0.8-4.8); Lymphocytes % 11.4 %; Mean Corpuscular HGB Conc 31.3 g/dL (30.0-36.0); Mean Corpuscular Volume 95.8 fL (80-94); Mean Platelet Volume 9.5 fL (7.4-10.4); Monocytes # 1.1 10^3/uL (0.2-0.9); Monocytes % 8.5 %; Neutrophils # 10.23 10^3/uL (1.8-7.7); Neutrophils % 79.1 %; Nucleated Red Blood Cells % 0 %; Platelet Count 249 10^3/cmm (130-400); Red Cell Distribution Width 17.4 % (12.1-15.1); White Blood Count 12.9 10^3/uL (4.0-10.0)
[2020-01-29 21:40] LABS: INR 1.29 (0.8-1.2)
[2020-01-29 21:58] LABS: Alanine Aminotransferase 19 U/L (0-41); Albumin Level 3.7 g/dL (3.5-5.2); Alkaline Phosphatase 96 IU/L (40-130); Anion Gap 17.1 (5-19); Aspartate Amino Transferase 17 U/L (0-40); Blood Urea Nitrogen 12 mg/dL (8-23); Calcium 9.4 mg/dL (8.5-10.5); Carbon Dioxide 24 mmol/L (22-29); Chloride 100 mmol/L (98-107); Globulin 3.1 g/dL (1.3-4.6); Glomerular Filtration Rate 95.6 mL/min (90-130); Glucose 210 mg/dL (65-115); NT Pro B Type Natriuretic Pept 501 pg/mL (0-125); Osmolality Calculated 290 mOsm/kg (285-295); Potassium 4.1 mmol/L (3.5-5.1); Sodium 137 mmol/L (136-145); Total Bilirubin 0.4 mg/dL (0.15-1.2); Total Protein 6.8 g/dL (6.6-8.7)
[2020-01-29] MEDS: sodium chloride 0.9% 1,000 ML 999 ML IV (21:58)
[2020-01-29] MEDS: acetaminophen 325 mg Tablet 650 MG PO (21:58)
[2020-01-29] MEDS: piperacillin-tazobactam 3.375 GM in sodium chloride 0.9% (plus) 50 ML IV (21:58)
[2020-01-29 22:35] LABS: Lactate (Lactic Acid level) 0.9 mmol/L (0.5-2.2)
[2020-01-29] MEDS: vancomycin 1,000 MG in sodium chloride 0.9% 250 ML 250 MG IV (22:43)
[2020-01-29 22:45] LABS: SARS Covid-2 Antigen Negative (Negative)
[2020-01-29 22:58] LABS: ABG PCO2 37.5 mmHg (35-45); ABG PH Result 7.38 (7.35-7.45); Arterial Blood Gas Hematocrit 28.7 % (42-52); Base Excess ABG -2.4 mmol/L (-2.0-2.0); Blood Gas Sample Type Arterial; HCO3 ABG 22.4 mmol/L (22-26)
[2020-01-29 22:59] LABS: Blood Gas Operator Identificat HARKR; Blood Gas Sample Site Brachial, right; Oxygen Device BIPAP
[2020-01-29 23:43] LABS: Add Urine Microscopic? YES; Bilirubin Urine Neg (Negative); Blood Urine Neg (Negative); Glucose Urine UA Norm (Normal); Ketones Urine 1+ (Negative); Leukocyte Esterase Urine Negative (Negative); Nitrate Urine Negative (Negative); Protein Urine Trace (Negative); Urine Appearance Clear (CLEAR); Urine Color Yellow (Yellow); Urobilinogen Urine Norm (Negative); pH Urine 5 (5-7)
[2020-01-29 23:49] LABS: Amorphous Sediment Urine 1+ /hpf; Bacteria Urine TRACE /hpf; Mucus Urine 2+ /hpf; RBC Urine RARE /hpf (0-2); Squamous Epithelial Cell Urine 0-4 /hpf (0-5); Uric Acid Crystals Urine 0-4 /hpf; WBC Urine 0-4 /hpf (0-5)
[2020-01-29 23:50] LABS: Add Urine Culture? No; Coarse Granular Casts Urine RARE /lpf
[2020-01-30] VITALS (21 sets, daily range): BP systolic 104–155; BP diastolic 69–85; PULSE 88–144; RESP 17–34; TEMP 36.2–37.1; O2SAT 93–100
--- NOTE | 2020-01-30 08:03 | PC.RESP ---
Therapist came in room and noticed patient was really short of breath. Patient was on a 5LPM NC at this time. Therapist recommended patient to go on BIPAP at this time. Patient agreed and was placed on Bipap at this time.
--- NOTE | 2020-01-30 12:01 | PC.RESP ---
Pulmonary Rehab information sent to patient.
--- NOTE | 2020-01-30 13:34 | P.HP_ITS ---
Providers/Chief Complaint Admitting Physician: Afshin Simons MD Primary Care Provider: Silverio Spain MD Chief Complaint: diff breathing History of Present Illness Chalino Jeffrey is a 69 year old male with past medical history of metastatic lung cancer and recent history of prolonged admission secondary to pneumonia and hypoxia. The patient was discharged from [facility] on 01/14/2020 after approximately 6 weeks in the hospital. The patient presented to the emergency department secondary to significant shortness of breath that started rapidly. The patient quickly desaturated and his oxygen was in the 60s despite wearing 5 L of oxygen via nasal cannula. The patient was placed on BiPAP in the ER and he improved well with this. There was concern that he may have further pneumonia especially in the left lower lung and due to his increased oxygen needs he was admitted for further observation. The patient had fevers at home for the last 2 days and a mildly elevated temperature in the ER. The patient has had nausea. He denies any diarrhea, vomiting, dysur ia. He has had some constipation. He denies any recent exposure to COVID that he is aware of. He tested negative for COVID in the ER. Medications/Allergies Home Medications Medication Instructions Recorded Confirmed Last Taken Type multivitamin [Multiple Vitamins] 1 tab PO DAILY 08/13/19 01/30/20 11/29/19 History ferrous sulfate 325 mg PO BID #60 tab 08/15/19 01/30/20 11/29/19 Rx tamsulosin 0.4 mg PO BEDTIME 10/07/19 01/30/20 11/29/19 History oxycodone-acetaminophen 1 - 2 tab PO Q4H PRN #120 tab 10/21/19 01/30/20 11/17/19 Rx ondansetron 8 mg PO Q8H PRN 11/07/19 01/30/20 11/17/19 History prochlorperazine maleate 10 mg PO Q4H PRN 11/07/19 01/30/20 11/15/19 History Eliquis 2.5 mg PO BID #60 tab 11/08/19 01/30/20 11/30/19 Rx alprazolam 0.125 mg PO TID PRN #30 tab 12/31/19 01/30/20 Unknown Rx flecainide 50 mg PO Q12H #60 tab 12/31/19 01/30/20 Unknown Rx levalbuterol HCl 1.25 mg INHALATION Q6H.RESPIRATORY 12/31/19 01/30/20 Unknown Rx #72 ml magnesium hydroxide [Milk of 30 ml PO DAILY PRN #3000 ml 12/31/19 01/30/20 Unknown Rx Magnesia] metoprolol tartrate 25 mg PO BID #60 tab 12/31/19 01/30/20 Unknown Rx pantoprazole 40 mg PO DAILY #30 tab 12/31/19 01/30/20 Unknown Rx sucralfate 1 g PO AC&BEDTIME #300 ml 12/31/19 01/30/20 Unknown Rx alprazolam 0.5 mg tablet 0.5 mg PO BID PRN #60 tab 01/21/20 01/30/20 Unknown Rx sertraline 100 mg tablet 200 mg PO DAILY #30 tab 01/21/20 01/30/20 Unknown Rx sennosides-docusate sodium 1 tab-cap PO BID PRN 01/30/20 01/30/20 Unknown History zolpidem 5 mg PO BEDTIME PRN 01/30/20 01/30/20 Unknown History Allergies Allergy/AdvReac Type Severity Reaction Status Date / Time No Known Allergies Allergy Verified 11/30/19 08:30 PFSH Acute PFSH: Medical History Anemia Anorexia nervosa, restricting type Closed left clavicular fracture Generalized anxiety disorder H/O clavicle fracture with hardware History of pulmonary embolism Intermittent atrial fibrillation Major depressive disorder, recurrent severe without psychotic features Sinus tachycardia SOB (shortness of breath) Squamous cell lung cancer Tachycardia Surgical History H/O neck surgery History of shoulder surgery Hx of cholecystectomy Family History Mother Cancer Bladder Denies family history of Anesthesia complication Bleeding disorder Social History Smoking and tobacco status: former smoker Quit status (tobacco): has quit using tobacco Former quit date comment: 3 months ago Alcohol intake: former Lives independently: Yes Household members: children Current occupational status: disabled History of recent travel: No Current gender identity: Male Vitals/I&O/Wt Last Vital Signs Temp 97.6 F 01/30/20 11:49 Pulse 112 H 01/30/20 11:49 Resp 18 01/30/20 11:49 BP 116/74 01/30/20 11:49 Pulse Ox 98 01/30/20 11:49 01/29/20 01/30/20 01/30/20 22:59 06:59 14:59 Intake Total 50 / 50 1250 / 1300 120 / 120 Output Total 500 / 500 220 / 220 Balance 50 / 50 750 / 800 -100 / -100 Weight last 48 hrs Weight 120 lb Physical Exam Narrative: EXAM NARRATIVE: General: Alert and oriented x3 Neck: No masses appreciated Heart: Tachycardia with regular rate. No murmurs. Lungs: Diffuse wheezes noted. Crackles in the bilateral bases. Diffuse rhonc hi. Patient is currently on BiPAP. Abdomen: No significant hepatosplenomegaly. No significant pain. Extremities: No edema. Data : 01/29/20 21:18 01/29/20 21:18 Micro: Microbiology 01/29/20 23:47 Blood Culture - Preliminary Blood SPECIMEN COLLECTED 01/29/20 22:12 Blood Culture - Preliminary Blood SPECIMEN COLLECTED A&P Additional A&P Information 1. Hypoxia with respiratory failure -the patient presented with significant hypoxia and had been placed on BiPAP. The patient is breathing better with BiPAP and at this time we will try and see if we can wean him off of it. If possible we will move to oxygen via nonrebreather and then taper down to nasal cannula as possible. The patient was on 3 to 5 L of oxygen at home. The patient was recently hospitalized for just over a month here and another 2 weeks at [facility]. He was discharged on 01/14/2020. I will give the patient Lasix as his BNP is elevated and this could be other reasons for his rapid hypoxia. Steroids secondary to underlying COPD. 2. Metastatic lung cancer -the patient has metastatic lung cancer in both lungs and received radiation treatment. The patient sees Dr. Sibley for oncology. The patient saw Dr. Sibley earlier this week and he recommended no further ch emotherapy until his lungs are improved. I am not sure that the patient's lungs will improve significantly enough to be able to receive chemotherapy. The patient does not want hospice at this time, but this should be an open discussion. 3. Suspected pneumonia -the patient improved with cefepime and Bactrim during his last admission, so we will restart these as well as vancomycin secondary to his recent hospitalization. Chest x-ray shows signs of possible pneumonia. Clinically he had an elevated temperature. No signs of sepsis at this time. 4. History of pulmonary embolism -the patient is on Eliquis for prophylaxis. 5. Anxiety -continue with Xanax as needed. 6. Constipation -milk of magnesia or senna for constipation. 7. Prophylaxis -the patient is on Eliquis for prophylaxis. Attestations Medical Necessity Statement*: The patient be here for greater than 2 midnights due to treatment of the above issues. Coding Level of Care Code Acute Labor Training Manager for Padmini Killian
[2020-01-30] MEDS: FUROsemide 10 mg/mL SDV 10mL 60 MG IVP (14:00)
[2020-01-30] MEDS: cefepime 1,000 MG in sodium chloride 0.9% (plus) 50 ML 100 MG IV (14:22)
--- NOTE | 2020-01-30 14:52 | PC.NURSE ---
Updated patient's son Milad at this time. Informed patient that Milad stated that he would not be able to visit until tomorrow.
[2020-01-30] MEDS: ALPRAZolam 0.5 mg Tablet PO ×2 (15:22→23:40)
[2020-01-30] MEDS: oxyCODONE-APAP 5-325 mg Tablet PO ×2 (15:22→22:32)
[2020-01-30] MEDS: vancomycin 1,000 MG in sodium chloride 0.9% 250 ML 250 MG IV (16:29)
[2020-01-30] MEDS: metoprolol tartrate 25 mg Tablet PO (17:49)
[2020-01-30] MEDS: sulfamethoxazole-trimeth DS 160-800 mg Tablet 1 TAB PO (17:49)
[2020-01-30] MEDS: ferrous sulfate EC 325 mg Tablet PO (17:49)
[2020-01-30] MEDS: guaiFENesin 600 mg Tablet 1200 MG PO (17:50)
[2020-01-30] MEDS: sucralfate 1 gm/10 mL Oral Liq UDC PO ×2 (17:51→20:35)
--- NOTE | 2020-01-30 19:00 | NUR.SHIFT ---
Report to Ame GARCIA
[2020-01-30] MEDS: apixaban 5 mg Tablet 2.5 MG PO (20:35)
[2020-01-30] MEDS: tamsulosin 0.4 mg Capsule PO (20:36)
[2020-01-30] MEDS: flecainide 100 mg Tablet 50 MG PO (20:36)
[2020-01-30] MEDS: levalbuterol 1.25 mg/3 mL Neb INHALATION (20:42)
[2020-01-30] MEDS: zolpidem 5 mg Tablet PO (23:40)
[2020-01-31] VITALS (17 sets, daily range): BP systolic 93–134; BP diastolic 48–84; PULSE 84–125; RESP 15–25; TEMP 36.3–37.1; O2SAT 89–98
[2020-01-31] MEDS: levalbuterol 1.25 mg/3 mL Neb INHALATION ×3 (03:04→14:02)
[2020-01-31] MEDS: cefepime 1,000 MG in sodium chloride 0.9% (plus) 50 ML 100 MG IV ×2 (03:31→14:33)
[2020-01-31 05:18] LABS: Basophils % 0.1 %; Hematocrit 28.1 % (42.0-52.0); Hemoglobin 8.7 g/dL (11.7-16.6); Lymphocytes # 0.6 10^3/uL (0.8-4.8); Lymphocytes % 6.2 %; Mean Corpuscular Hemoglobin 29.8 pg (28.0-34.0); Mean Corpuscular Volume 96.2 fL (80-94); Mean Platelet Volume 9.9 fL (7.4-10.4); Monocytes # 0.5 10^3/uL (0.2-0.9); Monocytes % 5.4 %; Neutrophils # 7.91 10^3/uL (1.8-7.7); Nucleated Red Blood Cells % 0 %; Platelet Count 200 10^3/cmm (130-400); Red Blood Count 2.92 10^6/uL (4.1-5.3); Red Cell Distribution Width 17.1 % (12.1-15.1)
[2020-01-31 05:32] LABS: INR 1.28 (0.8-1.2)
[2020-01-31 05:52] LABS: Alanine Aminotransferase 73 U/L (0-41); Albumin Level 2.9 g/dL (3.5-5.2); Alkaline Phosphatase 109 IU/L (40-130); Anion Gap 13.7 (5-19); Aspartate Amino Transferase 31 U/L (0-40); Blood Urea Nitrogen 10 mg/dL (8-23); Calcium 8.9 mg/dL (8.5-10.5); Carbon Dioxide 25 mmol/L (22-29); Chloride 101 mmol/L (98-107); Globulin 3.3 g/dL (1.3-4.6); Glomerular Filtration Rate 164.4 mL/min (90-130); Glucose 129 mg/dL (65-115); NT Pro B Type Natriuretic Pept 796 pg/mL (0-125); Osmolality Calculated 283 mOsm/kg (285-295); Potassium 3.7 mmol/L (3.5-5.1); Sodium 136 mmol/L (136-145); Total Bilirubin 0.2 mg/dL (0.15-1.2); Total Protein 6.2 g/dL (6.6-8.7)
[2020-01-31] MEDS: sucralfate 1 gm/10 mL Oral Liq UDC PO ×3 (06:27→23:09)
[2020-01-31] MEDS: multivitamin therapeutic Tablet 1 TAB PO (07:59)
[2020-01-31] MEDS: pantoprazole DR 40 mg Tablet PO (07:59)
[2020-01-31] MEDS: apixaban 5 mg Tablet 2.5 MG PO ×2 (07:59→23:07)
[2020-01-31] MEDS: sertraline 100 mg Tablet 200 MG PO (07:59)
[2020-01-31] MEDS: metoprolol tartrate 25 mg Tablet PO (07:59)
[2020-01-31] MEDS: guaiFENesin 600 mg Tablet 1200 MG PO ×2 (07:59→18:21)
[2020-01-31] MEDS: ferrous sulfate EC 325 mg Tablet PO ×2 (07:59→18:21)
[2020-01-31] MEDS: sulfamethoxazole-trimeth DS 160-800 mg Tablet 1 TAB PO (07:59)
[2020-01-31] MEDS: flecainide 100 mg Tablet 50 MG PO ×2 (09:11→23:08)
[2020-01-31] MEDS: vancomycin 1,000 MG in sodium chloride 0.9% 250 ML 250 MG IV (10:40)
--- NOTE | 2020-01-31 12:50 | CTR_ITS ---
PROCEDURE INFORMATION: Exam: CT Angiography Chest With Contrast Exam date and time: 01/31/2020 1:04 PM Age: 69 years old Clinical indication: Fever and shortness of breath; Prior surgery; Surgery date: 6+ months; Surgery type: Port, shoulder; Patient HX: HX of lung CA C/O fever and worsening SOB; Additional info: R/O pe TECHNIQUE: Imaging protocol: Computed tomographic angiography of the chest with intravenous contrast. 3D rendering (Not supervised by radiologist): MIP and/or 3D reconstructed images were created by the technologist. Radiation optimization: All CT scans at this facility use at least one of these dose optimization techniques: automated exposure control; mA and/or kV adjustment per patient size (includes targeted exams where dose is matched to clinical indication); or iterative reconstruction. Contrast material: OMNI 350; Contrast volume: 75 ml; Contrast route: INTRAVENOUS (IV); COMPARISON: CT angio chest PE protcl [id number] 12/15/2019 2:51 PM RADIATION DOSE METRICS: Total DLP (mGy-cm): 601.14 FINDINGS: Tubes, catheters and devices: There is a central venous catheter positioned in the right atrium. Pulmonary arteries: Normal. No pulmonary emboli. Aorta: There is scattered atherosclerotic plaque in the thoracic aorta. Lungs: There are multifocal bilateral pulmonary infiltrates and ground-glass opacities worsened when compared to the prior study. Pleural space: There are bilateral pleural effusions with underlying compressive atelectasis or infiltrate. Heart: Unremarkable. No cardiomegaly. No pericardial effusion. Mediastinal space: Mucosal thickening of the esophagus is stable from the prior study. Lymph nodes: There are calcified mediastinal and perihilar lymph nodes consistent with prior granulomatous exposure. There is mediastinal and perihilar lymphadenopathy. Stomach and bowel: The stomach is distended, worsened when compared to the prior study. Bones/joints: Possible right thoracotomy changes with volume loss in the right upper lobe. There is heterogeneous density in the remaining right upper lobe consistent with residual and/or recurrent neoplasm which extends to the mediastinum and surrounds the right perihilar structures. This was seen on the prior study as well. There are some air fluid collections in the heterogeneous density which may represent necrosis or infection. Heterogeneous density in the right 2nd and 3rd ribs anteriorly is similar to the prior study. Soft tissues: Unremarkable. CT/CT angio chest PE protcl [id number] IMPRESSION: 1. No evidence for pulmonary embolus. 2. There is heterogeneous consolidation in the right upper lobe similar to the prior study consistent with neoplasm. Air-fluid levels are present in the consolidated regions which may represent necrosis or infection. 3. Multifocal bilateral pulmonary infiltrates and ground-glass opacities have worsened when compared to the prior study and are consistent with pneumonia. Imaging features can be seen with COVID-19 pneumonia, though are nonspecific and can occur with a variety of infectious and noninfectious processes. (Reference: Ricardo) 4. There are bilateral pleural effusions with underlying compressive atelectasis or infiltrate. 5. The stomach is distended raising concern for gastric outlet obstruction. 6. Esophageal mucosal thickening is similar to the prior study. REFERENCES: Ricardo Kim, et al., Radiological Society of [place] Expert Consensus Statement on Reporting Chest CT Findings Related to COVID-19. Endorsed by the Society of Thoracic Radiology, the [place] [employer], and RSNA. Published July 09, 2019. Radiation Dose CTDIVOL = (mGy): DLP = 601.14 (mGy-cm)
[2020-01-31] MEDS: iohexol 350 mg/mL 100 mL Btl IV (13:31)
[2020-01-31 13:33] LABS: D Dimer 1.26 ug/mIFEU (0-0.59)
[2020-01-31 13:44] LABS: Procalcitonin 0.12 ng/mL (0-0.5)
[2020-01-31 13:54] LABS: Iron 30 ug/dL (59-158); Percent Saturation 17.7 % (20-50); Total Iron Binding Capacity 169 mcg/dl; Unsaturated Iron Binding 139 ug/dL (112-347)
--- NOTE | 2020-01-31 14:04 | PC.NURSE ---
took pt to CT via bed
[2020-01-31] MEDS: benzonatate 100 mg Capsule PO (14:28)
--- NOTE | 2020-01-31 15:06 | CTR_ITS ---
PROCEDURE INFORMATION: Exam: CT Abdomen And Pelvis Without Contrast Exam date and time: 01/31/2020 3:40 PM Age: 69 years old Clinical indication: Bloating; Prior surgery; Surgery date: 6+ months; Surgery type: Gb; Patient HX: HX of lung CA w abd distention; Additional info: Gastric outlet obstruction/sbo TECHNIQUE: Imaging protocol: Computed tomography of the abdomen and pelvis without contrast. Radiation optimization: All CT scans at this facility use at least one of these dose optimization techniques: automated exposure control; mA and/or kV adjustment per patient size (includes targeted exams where dose is matched to clinical indication); or iterative reconstruction. COMPARISON: CT abdomen pelvis w con* [id number] 10/21/2018 9:36 AM RADIATION DOSE METRICS: Total DLP (mGy-cm): 279.45 FINDINGS: Lungs: Please see the CT scan of the thorax for description of the lung bases and lower thorax. Liver: Normal. No mass. Gallbladder and bile ducts: The gallbladder has been removed. Pancreas: Normal. No ductal dilation. Spleen: There are benign-appearing calcifications in the spleen. Adrenals: Normal. No mass. Kidneys and ureters: There is a small amount of residual contrast in the renal calices. Stomach and bowel: The stomach is distended. There is mild mucosal thickening of the descending and sigmoid colon. Proximal colonic constipation. Appendix: A normal appendix is identified. Intraperitoneal space: Unremarkable. No free air. No significant fluid collection. Vasculature: Unremarkable. No abdominal aortic aneurysm. Lymph nodes: Unremarkable. No enlarged lymph nodes. Urinary bladder: There are multiple small bladder diverticula. Bladder wall is somewhat thickened. Reproductive: Prostate gland is mildly enlarged measuring 4.9 cm in the transverse dimension. Bones/joints: Unremarkable. No acute fracture. Soft tissues: Unremarkable. Other findings: Motion artifact does moderately limit the sensitivity of this examination. CT/CT abdomen pelvis wo con [id number] IMPRESSION: 1. There is mild mucosal thickening of the descending and sigmoid colon consistent with a nonspecific colitis. There is proximal colonic constipation. 2. The stomach is distended. 3. The bladder wall is thickened. This is nonspecific and may represent bladder outlet obstruction, inflammation or infection. Neoplastic process is included in the differential. Radiation Dose CTDIVOL = (mGy): DLP = 279.45 (mGy-cm)
--- NOTE | 2020-01-31 15:08 | PM.PN ---
Vitals/I&O/Wt Last Vital Signs Temp 97.9 F 01/31/20 11:25 Pulse 112 H 01/31/20 14:11 Resp 18 01/31/20 14:11 BP 111/63 01/31/20 12:06 Pulse Ox 92 01/31/20 14:11 01/31/20 01/31/20 01/31/20 06:59 14:59 22:59 Intake Total 170 / 927 480 / 480 Output Total 400 / 1570 500 / 500 Balance -230 / -643 - Weight last 48 hrs Weight 54.431 kg Physical Exam Narrative: EXAM NARRATIVE: General: Alert and oriented x3 Neck: No masses appreciated Heart: Tachycardia with regular rate. No murmurs. Lungs: Diffuse wheezes noted. Crackles in the bilateral bases. Diffuse rhonchi. Patient is currently on nasal cannula. Abdomen: No significant hepatosplenomegaly. No significant pain. Extremities: No edema. Data : 01/31/20 04:45 01/31/20 04:45 Micro: Microbiology 01/30/20 23:20 Bacterial Antigens - Final Urine Kidney 01/30/20 23:20 Legionella Urinary Antigen - Final Urethra 01/29/20 23:47 Blood Culture - Preliminary Blood NEGATIVE TO DATE 01/29/20 22:12 Blood Culture - Preliminary Blood NEGATIVE TO DATE A&P Assessment and plan (1) Hypoxia: Status: Acute (2) Acute respiratory distress: Status: Acute (3) Pneumonitis: Status: Acute (4) History of pulmonary embolism: Status: Acute (5) Metastatic lung cancer (metastasis from lung to other site): Status: Acute (6) Atrial fibrillation with rapid ventricular response: Status: Acute (7) Physical deconditioning: Status: Acute (8) Anemia: Status: Acute Qualifiers: Anemia type: unspecified type Qualified Code(s): D64.9 - Anemia, unspecified (9) Nausea: Status: Acute Additional A&P Information 1. Hypoxia with respiratory failure: Multifactorial because of metastatic lung cancer along with pneumonia with history of pulmonary embolism in the past. Recently had a prolonged hospitalization when he was discharged to [facility]. Most discharged from [facility] on January 13 started having difficulty in breathing acutely a day prior to discharge. Currently patient on vancomycin, cefepime, oral Bactrim. Check sputum culture, bacterial antigen, urine Legionella, MRSA swab, procalcitonin. D-dimer checked today and elevated. proBNP results appreciated. Check CTA to rule out pulmonary embolism. We will change antibiotics as per the results. Continue with levalbuterol, ipratropium every 6 hours as needed. Add Pulmicort. Continue methylprednisolone 60 IV every 12. Tessalon Perles. Oxygen supplementation keeping saturation over 88%. COVID-19 antigen negative. Patient has remained afebrile for now. If patient spikes fever or depending on the CT scan results will plan for COVID-19 PCR. For now hold off. Atrial fibrillation: Continue home dose of flecainide. Will increase home dose of metoprolol to 50 mg twice daily Anticoagulation with Eliquis. History of pulmonary embolism -the patient is on Eliquis for prophylaxis. Anxiety -continue with Xanax as needed. Home dose Zoloft. Constipation -milk of magnesia or senna for constipation. Prophylaxis -the patient is on Eliquis for prophylaxis. Attestations Medical Necessity Statement*: Needs further hospitalization for management of hypoxic respiratory failure Time Spent in Patient Care: Greater than 35 minutes (>than 50% of time spent in counselling and/or direct pt care on unit). Coding Level of Care Code Acute Emanations Analysis Technician for Padmini Killian Diagnoses Hypoxia R09.02 Acute respiratory distress R06.03 Pneumonitis J18.9 History of pulmonary embolism Z86.711 Metastatic lung cancer (metastasis from lung to other site) C34.90 Atrial fibrillation with rapid ventricular response I48.91 Physical deconditioning R53.81 Anemia D64.9 Anemia type: unspecified type Nausea R11.0
[2020-01-31] MEDS: piperacillin-tazobactam 3.375 GM in sodium chloride 0.9% (plus) 50 ML IV (16:40)
--- NOTE | 2020-01-31 18:10 | XRR_ITS ---
PROCEDURE INFORMATION: Exam: XR Chest, 1 View Exam date and time: 01/31/2020 6:12 PM Age: 69 years old Clinical indication: Device placement; Ng tube; Additional info: Ng tube placement TECHNIQUE: Imaging protocol: XR of the chest Views: 1 view. COMPARISON: CR XR chest 1V portable [id number] 01/29/2020 9:35 PM FINDINGS: Tubes, catheters and devices: There is a G-tube in place with the distal fenestration in the left upper quadrant stomach body. Left subclavian central venous catheter tip projects over the right atrium. Lungs: Multifocal bilateral pulmonary infiltrates and ground-glass opacities. Pleural space: Blunting of the costophrenic angles is suggestive of small pleural effusions. Heart/Mediastinum: There is right upper lobe consolidation with cystic regions extending to the right superior mediastinum and right perihilar structures. Diaphragm: There is elevation of the right hemidiaphragm. Bones/joints: There is a fixation screw in the lateral left clavicle at a chronic/healed fracture site. Organs: Clips are present in the right upper quadrant consistent with prior cholecystectomy. XR/XR chest 1V portable [id number] IMPRESSION: 1. Multifocal bilateral pulmonary ground-glass opacities and infiltrates.Imaging features can be seen with COVID-19 pneumonia, though are nonspecific and can occur with a variety of infectious and noninfectious processes. (Reference: Ricardo) 2. Fenestration of the distal G-tube is positioned in the stomach body. REFERENCES: Ricardo Kim et al., Radiological Society of [place] Expert Consensus Statement on Reporting Chest CT Findings Related to COVID-19. Endorsed by the Society of Thoracic Radiology, the [place] [employer], and RSNA. Published July 09, 2019.
[2020-01-31] MEDS: ALPRAZolam 0.5 mg Tablet PO (18:21)
[2020-01-31] MEDS: metoprolol tartrate 50 mg Tablet PO (18:21)
[2020-01-31] MEDS: budesonide 0.5 mg/2 mL Neb INHALATION (19:49)
[2020-01-31] MEDS: tamsulosin 0.4 mg Capsule PO (23:09)
[2020-02-01] VITALS (14 sets, daily range): BP systolic 101–164; BP diastolic 66–101; PULSE 83–131; RESP 18–34; TEMP 36.3–37.2; O2SAT 87–97
[2020-02-01] MEDS: zolpidem 5 mg Tablet PO (00:30)
[2020-02-01] MEDS: metoclopramide 5 mg/mL SDV 2 mL IVP ×3 (00:31→15:49)
[2020-02-01] MEDS: piperacillin-tazobactam 3.375 GM in sodium chloride 0.9% (plus) 50 ML IV ×3 (00:32→15:49)
[2020-02-01] MEDS: levalbuterol 1.25 mg/3 mL Neb INHALATION ×3 (02:07→14:16)
[2020-02-01 03:55] LABS: Alanine Aminotransferase 62 U/L (0-41); Alkaline Phosphatase 129 IU/L (40-130); Aspartate Amino Transferase 30 U/L (0-40); Blood Urea Nitrogen 12 mg/dL (8-23); Calcium 9.2 mg/dL (8.5-10.5); Carbon Dioxide 23 mmol/L (22-29); Chloride 99 mmol/L (98-107); Globulin 3.3 g/dL (1.3-4.6); Glomerular Filtration Rate 133.2 mL/min (90-130); Glucose 116 mg/dL (65-115); Osmolality Calculated 283 mOsm/kg (285-295); Sodium 136 mmol/L (136-145); Total Bilirubin 0.2 mg/dL (0.15-1.2); Total Protein 6.3 g/dL (6.6-8.7); Vancomycin Trough 7.5 ug/mL (10-15)
[2020-02-01 04:22] LABS: Anion Gap 17.4 (5-19); Potassium 3.4 mmol/L (3.5-5.1)
--- NOTE | 2020-02-01 04:35 | PC.PHAR ---
Vancomycin trough on dosage of 1gm IVPB every 18 hours is 7.5. Dosage is increased to 1gm IVPB every 12 hours with another trough to be obtained before the fourth dose at this rate.
[2020-02-01] MEDS: vancomycin 1,000 MG in sodium chloride 0.9% 250 ML 250 MG IV ×3 (05:16→20:19)
[2020-02-01 05:30] LABS: Basophils % 0.1 %; Hematocrit 32.7 % (42.0-52.0); Hemoglobin 10.3 g/dL (11.7-16.6); Lymphocytes # 0.5 10^3/uL (0.8-4.8); Lymphocytes % 3.6 %; Mean Corpuscular HGB Conc 31.5 g/dL (30.0-36.0); Mean Corpuscular Hemoglobin 30.1 pg (28.0-34.0); Mean Corpuscular Volume 95.6 fL (80-94); Mean Platelet Volume 9.9 fL (7.4-10.4); Monocytes # 0.9 10^3/uL (0.2-0.9); Monocytes % 6.1 %; Neutrophils # 13.21 10^3/uL (1.8-7.7); Nucleated Red Blood Cells % 0 %; Platelet Count 292 10^3/cmm (130-400); Red Blood Count 3.42 10^6/uL (4.1-5.3); Red Cell Distribution Width 17.2 % (12.1-15.1); White Blood Count 14.9 10^3/uL (4.0-10.0)
--- NOTE | 2020-02-01 07:47 | ECG_ITS ---
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 Measurements Intervals [place] Rate: 119 P: 51 VT: 165 QRS: 1 QRSD: 91 T: 60 QT: 415 QTc: 584 Interpretive Statements SINUS TACHYCARDIA POSSIBLE LEFT ATRIAL ENLARGEMENT [-0.1mV P WAVE IN V1/V2] INCOMPLETE RIGHT BUNDLE BRANCH BLOCK [90+ ms QRS DURATION, TERMINAL R IN V1/V2, 40+ ms S IN I/aVL/V4/V5/V6] NONSPECIFIC T-WAVE ABNORMALITY ABNORMAL RHYTHM ECG Compared to ECG 01/29/2020 21:35:40 Incomplete right bundle-branch block now present T-wave abnormality still present Electronically Signed On 02-01-2020 19:54:20 CDT by Lopez Gutierrez M.D. [id number]
[2020-02-01] MEDS: sertraline 100 mg Tablet 200 MG PO (08:35)
[2020-02-01] MEDS: metoprolol tartrate 50 mg Tablet PO ×2 (08:35→17:25)
[2020-02-01] MEDS: pantoprazole DR 40 mg Tablet PO (08:35)
[2020-02-01] MEDS: benzonatate 100 mg Capsule PO ×3 (08:36→21:57)
[2020-02-01] MEDS: apixaban 5 mg Tablet 2.5 MG PO ×2 (08:36→21:57)
[2020-02-01] MEDS: guaiFENesin 600 mg Tablet 1200 MG PO ×2 (08:36→17:25)
[2020-02-01] MEDS: flecainide 100 mg Tablet 50 MG PO ×2 (08:36→21:56)
[2020-02-01] MEDS: multivitamin therapeutic Tablet 1 TAB PO (08:36)
[2020-02-01] MEDS: ferrous sulfate EC 325 mg Tablet PO ×2 (08:36→17:25)
[2020-02-01] MEDS: oxyCODONE-APAP 5-325 mg Tablet PO ×2 (08:42→15:48)
[2020-02-01 09:01] LABS: Procalcitonin 0.14 ng/mL (0-0.5)
[2020-02-01 09:07] LABS: ABG PCO2 40.1 mmHg (35-45); ABG PH Result 7.46 (7.35-7.45); Alveolar-Arterial Oxygen Gradi 5.5 mmHg (5-10); Base Excess ABG 4.7 mmol/L (-2.0-2.0); Blood Gas Allen Test Pos; Blood Gas Sample Site Brachial, right; Blood Gas Sample Type Arterial; Carboxyhemoglobin 1.3 %THgb (0.4-20.1); HCO3 ABG 28.8 mmol/L (22-26); HGB O2 Sat 89.2 % (95-100); Ionized Calcium Level - ABG 1.2 mmol/L (1.1-1.4); Methemoglobin 0.7 % (0.4-1.5); Oxygen Device NC; PO2 ABG 58.3 mmHg (80.0-100.0); Potassium Level - ABG 3.5 mmol/L (3.5-5.0); Total Hemoglobin 13.1 g/dL (14-18)
[2020-02-01] MEDS: sucralfate 1 gm/10 mL Oral Liq UDC PO ×3 (11:26→21:57)
[2020-02-01] MEDS: ALPRAZolam 0.5 mg Tablet PO (13:42)
--- NOTE | 2020-02-01 14:17 | PC.RESP ---
One time tx ordered per Dr. Hernandez. Given in line through bipap, big negative pressure hepa filter in room and on at time of treatment. Called to room due to respiratory distress, placed on bipap prior to tx.
[2020-02-01] MEDS: levalbuterol 1.25 mg/3 mL Neb (14:48)
--- NOTE | 2020-02-01 16:25 | P.PN_ITS ---
Subjective Subjective: Interval history: Patient continues to remain critically ill. In last [address] abdomen chest pelvis results are appreciated. NG tube was placed and 400 cc bilious secretion was drained. Since then NG tube was removed earlier today morning as patient was not able to tolerate the NG tube well. Patient has mostly remained BiPAP dependent. Overnight was placed on high flow oxygen supplementation. On examination patient is extremely anxious on BiPAP. Vitals/I&O/Wt Last Vital Signs Temp 98.2 F 02/01/20 15:48 Pulse 118 H 02/01/20 15:48 Resp 23 H 02/01/20 15:48 BP 101/66 02/01/20 15:48 Pulse Ox 91 02/01/20 15:48 02/01/20 02/01/20 02/01/20 06:59 14:59 22:59 Intake Total 300 / 1130 50 / 50 Output Total 750 / 1400 600 / 600 Balance -450 / -270 -550 / -550 Physical Exam Narrative: EXAM NARRATIVE: General: Alert and oriented x3 Neck: No masses appreciated Heart: Tachycardia with regular rate. No murmurs. Lungs: Diffuse wheezes noted. Crackles in the bilateral bases. Diffuse rhonchi. Patient is currently on nasal cannula. Abdomen: No significant hepatosplenomegaly. No significant pain. Extremities: No edema. Data : 02/01/20 04:40 02/01/20 03:09 Micro: Microbiology 01/31/20 13:15 MRSA Culture - Final Nose 01/30/20 23:20 Bacterial Antigens - Final Urine Kidney 01/30/20 23:20 Legionella Urinary Antigen - Final Urethra A&P Assessment and plan (1) Hypoxia: Status: Acute (2) Acute respiratory distress: Status: Acute (3) Pneumonitis: Status: Acute (4) History of pulmonary embolism: Status: Acute (5) Metastatic lung cancer (metastasis from lung to other site): Status: Acute (6) Atrial fibrillation with rapid ventricular response: Status: Acute (7) Physical deconditioning: Status: Acute (8) Anemia: Status: Acute Qualifiers: Anemia type: unspecified type Qualified Code(s): D64.9 - Anemia, unspecified (9) Nausea: Status: Acute Additional A&P Information 1. Hypoxia with respiratory failure: Multifactorial because of metastatic lung cancer along with pneumonia with history of pulmonary embolism in the past. Recently had a prolonged hospitalization when he was discharged to [facility]. Most discharged from LTAC on January 13 started having difficulty in breathing acutely a day prior to discharge. Currently patient on vancomycin, cefepime, oral Bactrim. Check sputum culture, bacterial antigen, urine Legionella, MRSA swab, procalcitonin. D-dimer checked today and elevated. proBNP results appreciated. CTA negative for any pulmonary embolism. Consistent with overly distended stomach so cannot rule out aspiration. We will change cefepime to Zosyn. As per the CT results high chances of COVID-19. Will check COVID-19 PCR as well. Isolation precautions for now. Switch to Advair and Spiriva to decrease aerosolization along with albuterol as needed. Continue methylprednisolone 60 IV every 12. Tessalon Perles. Oxygen supplementation keeping saturation over 88%. Atrial fibrillation: Continue home dose of flecainide. Will increase home dose of metoprolol to 50 mg twice daily Anticoagulation with Eliquis. History of pulmonary embolism -the patient is on Eliquis for prophylaxis. Anxiety -continue with Xanax as needed. Home dose Zoloft. Constipation -milk of magnesia or senna for constipation. Prophylaxis -the patient is on Eliquis for prophylaxis. N.p.o. for now. Eliquis will help with DVT prophylaxis also. Protonix for PUD prophylaxis Attestations Medical Necessity Statement*: Needs controlled hospitalization for management of hypoxic respiratory failure, COVID-19 not ruled out Time Spent in Patient Care: Greater than 35 minutes (>than 50% of time spent in counselling and/or direct pt care on unit) . Coding Level of Care Code Acute Semiconductor Technician for [facility] Maria D Diagnoses Hypoxia R09.02 Acute respiratory distress R06.03 Pneumonitis J18.9 History of pulmonary embolism Z86.711 Metastatic lung cancer (metastasis from lung to other site) C34.90 Atrial fibrillation with rapid ventricular response I48.91 Physical deconditioning R53.81 Anemia D64.9 Anemia type: unspecified type Nausea R11.0
--- NOTE | 2020-02-01 17:52 | PC.NURSE ---
Hung Zosyn on patient and had to re-time Vanc due to administration time being to close to zosyn and patient having only one IV. Notified pharmacy and was told to go ahead and re-time vanc.
[2020-02-01] MEDS: tamsulosin 0.4 mg Capsule PO (21:57)
[2020-02-02] VITALS (16 sets, daily range): BP systolic 86–133; BP diastolic 61–85; PULSE 113–153; RESP 16–32; TEMP 36.2–36.9; O2SAT 87–133
[2020-02-02] MEDS: piperacillin-tazobactam 3.375 GM in sodium chloride 0.9% (plus) 50 ML IV ×3 (00:49→18:44)
[2020-02-02] MEDS: zolpidem 5 mg Tablet PO ×2 (00:50→22:42)
[2020-02-02] MEDS: ALPRAZolam 0.5 mg Tablet PO ×2 (00:50→18:39)
[2020-02-02] MEDS: metoclopramide 5 mg/mL SDV 2 mL IVP ×3 (00:50→18:40)
[2020-02-02] MEDS: dilTIAZem 30 mg Tablet 15 MG PO (06:54)
--- NOTE | 2020-02-02 07:23 | PC.RESP ---
RT called to pt room for low sats, pt was sating 86% on 60% fio2, RT increased fio2 to 90%, pt kept saying he was not getting enough air, RT increased bipap to 20/12. Nurse notified.
[2020-02-02] MEDS: vancomycin 1,000 MG in sodium chloride 0.9% 250 ML 250 MG IV ×2 (07:52→23:05)
[2020-02-02] MEDS: guaiFENesin 600 mg Tablet 1200 MG PO ×2 (07:54→18:39)
[2020-02-02] MEDS: ferrous sulfate EC 325 mg Tablet PO ×2 (07:55→18:39)
[2020-02-02] MEDS: sertraline 100 mg Tablet 200 MG PO (07:55)
[2020-02-02] MEDS: benzonatate 100 mg Capsule PO ×3 (07:55→20:40)
[2020-02-02] MEDS: pantoprazole DR 40 mg Tablet PO (07:56)
[2020-02-02] MEDS: metoprolol tartrate 50 mg Tablet PO ×2 (07:56→18:39)
[2020-02-02] MEDS: multivitamin therapeutic Tablet 1 TAB PO (07:56)
[2020-02-02] MEDS: apixaban 5 mg Tablet 2.5 MG PO ×2 (07:58→20:40)
[2020-02-02] MEDS: flecainide 100 mg Tablet 50 MG PO (08:30)
--- NOTE | 2020-02-02 09:15 | PC.SOCIAL ---
IMM Page 2 of IMM given to patient. Initialed, dated, and timed and placed in chart.
[2020-02-02] MEDS: metoprolol tartrate 1 mg/1 mL SDV 5 mL 5 MG IV ×2 (13:26→22:42)
[2020-02-02] MEDS: sucralfate 1 gm/10 mL Oral Liq UDC PO ×2 (13:31→18:41)
--- NOTE | 2020-02-02 14:29 | PM.PN ---
Subjective Subjective: Interval history: The patient is having more shortness of breath and is not tolerating being off BiPAP. The patient's oxygen levels decreased to the low 80s without BiPAP. He becomes very short of breath with this. He denies any active chest pains. Vitals/I&O/Wt Last Vital Signs Temp 97.6 F 02/02/20 12:00 Pulse 132 H 02/02/20 12:00 Resp 24 H 02/02/20 12:00 BP 104/73 02/02/20 12:00 Pulse Ox 133 H 02/02/20 14:09 02/01/20 02/02/20 02/02/20 22:59 06:59 14:59 Intake Total 300 / 350 50 / 400 Output Total 350 / 950 125 / 125 Balance -50 / -600 50 / -550 -125 / -125 Physical Exam Narrative: EXAM NARRATIVE: General: Alert and oriented x3 Neck: No masses appreciated Heart: Tachycardia with regular rate. No murmurs. Lungs: Mild crackles in the bilateral bases. Diffuse rhonchi. Patient is currently on BiPAP. Mild diffuse wheezes. Abdomen: No significant hepatosplenomegaly. No significant pain. Extremities: No edema. Data : 02/03/20 04:39 02/03/20 04:39 Micro: Microbiology 01/31/20 13:15 MRSA Culture - Final Nose A&P Additional A&P Information 1. Hypoxia with respiratory failure -the patient presented with significant hypoxia and had been placed on BiPAP. The patient is breathing better with BiPAP and at this time we will try and see if we can wean him off of it. If possible we will move to oxygen via nonrebreather and then taper down to nasal cannula as possible. The patient was on 3 to 5 L of oxygen at home. The patient was recently hospitalized for just over a month here and another 2 weeks at [facility]. He was discharged on 01/14/2020. The patient seems to be on oxygen overall. If he continues to worsen, he may need to go to the ICU. 2. Metastatic lung cancer -the patient has metastatic lung cancer in both lungs and received radiation treatment. The patient sees Dr. Sibley for oncology. The patient saw Dr. Sibley earlier this week and he recommended no further chemotherapy until his lungs are improved. I am not sure that the patient's lungs will improve significantly enough to be able to receive chemotherapy. The patient does not want hospice at this time, but this should be an open discussion. 3. Pneumonia -the patient is currently on Bactrim, Zosyn and vancomycin. Chest x-ray shows signs of pneumonia. Clinically he had an elevated temperature. We will get a repeat chest x-ray today. 4. History of pulmonary embolism -the patient is on Eliquis for prophylaxis. 5. Anxiety -continue with Xanax as needed. 6. Constipation -milk of magnesia or senna for constipation. 7. Prophylaxis -the patient is on Eliquis for prophylaxis. Attestations Medical Necessity Statement*: The patient will be here for greater than 2 midnights secondary to the above treatments. Coding Level of Care Code Acute Esthetician/Spa Coordinator for Padmini Killian
--- NOTE | 2020-02-02 14:33 | XRR_ITS ---
PROCEDURE INFORMATION: Exam: XR Chest, 1 View Exam date and time: 02/02/2020 2:34 PM Age: 69 years old Clinical indication: Dyspnea TECHNIQUE: Imaging protocol: XR of the chest Views: 1 view. COMPARISON: CR XR chest 1V portable [id number] 01/31/2020 6:26 PM FINDINGS: Lungs: There is a parenchymal densities in the left lower lobe similar to prior examination. This finding may reflect pneumonia Right perihilar pneumonia seen on prior examination has decreased in density. Pleural space: There is right apical opacity seen stable since prior examination consistent with apical pleural thickening.. No pleural effusion. No pneumothorax. Elevation of the right hemidiaphragm is seen stable since prior Heart/Mediastinum: Unremarkable. No cardiomegaly. Bones/joints: Surgical hardware is seen in the cervical spine. Metallic screw is seen in the distal shaft of the left clavicle. A sense central line is in place on the left side extending into the SVC. XR/XR chest 1V portable [id number] IMPRESSION: 1. Stable left lower lobe parenchymal density probable pneumonia 2. Resolving pneumonia right perihilar region. 3. Right apical pleural thickening 4. Elevation of the right hemidiaphragm. 5. Left central line in good position. 6. Postsurgical hardware cervical spine and left clavicle
--- NOTE | 2020-02-02 17:14 | PM.CONSULT ---
Providers/Reason For Consult Consulting Physican/Specialty*: Dr. Angela, cardiology Reason for Consult*: Tachycardia, respiratory failure, history of paroxysmal atrial fibrillation Attending Physician: Sumeet De Oliveira MD Primary Care Provider: Silverio Spain MD History of Present Illness History of Present Illness Chalino Jeffrey is a 69 year old male presented to the hospital with worsening shortness of breath. 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 Not a candidate for surgery and has been started on chemoradiation. He was hospitalized and stayed for a month (11/29-01/02) with obstructive pneumonia. He completed his chemo radiation in November 2019. He stayed in LTAC for 2 weeks and was discharged home on 13 January. It seems like he was using oxygen 3 L at home and noted that he was desaturating to 69% in spite of using 5 L of oxygen via nasal cannula. He presented to the ER for further evaluation. He was placed on BiPAP. His EKG showed sinus tachycardia with nonspecific ST-T wave abnormality. CT angiogram of chest was done which did not show any evidence of pulmonary embolism. Heterogeneous consolidation in right upper lobe similar to prior study consistent with neoplasm air-fluid levels and consolidated regions. Multifocal bilateral pulmonary infiltrates and groundglass opacities were noted consistent with pneumonia. Bilateral pleural effusion and distended stomach. Rapid Covid test was negative negative and Covid PCR is pending. He is requiring significant amount of oxygen via high flow nasal cannula off or BiPAP. It seems like patient heart rate has been ranging from 140s to 160s throughout the day. I have been asked to assist in evaluating further management. EKG today shows atrial flutter with 2 is to 1 conduction and heart rate at 149 bpm. Nonspecific T wave abnormality. Patient at the time of evaluation is on high flow nasal cannula with oxygen saturation ranging from 89-94%. Denies having any chest pain tachycardia. He continues to have shortness of breath. Review of Systems Const: Reports: fever(s) and body aches Eyes: Denies: blurry vision or eye discomfort ENMT: Denies: throat pain, dental pain or epistaxis Card: Denies: chest pain Resp: Reports: dyspnea, non-productive cough and wheezing GI: Denies: abdominal pain, nausea, vomiting or diarrhea : Denies: dysuria or hematuria Musc: Denies: neck pain, back pain or extremity swelling Skin/Breast: Denies: rash Neuro: Denies: headache(s) Psych: Denies: depression Ignacio/Lymph: Denies: easy bruising, petechiae or purpura All/Imm: Denies: urticaria Meds/Allergies Home Medications and Allergies Home Medications Medication Instructions Recorded Confirmed Last Taken Type multivitamin [Multiple Vitamins] 1 tab PO DAILY 08/13/19 01/30/20 11/29/19 History ferrous sulfate 325 mg PO BID #60 tab 08/15/19 01/30/20 11/29/19 Rx tamsulosin 0.4 mg PO BEDTIME 10/07/19 01/30/20 11/29/19 History oxycodone-acetaminophen 1 - 2 tab PO Q4H PRN #120 tab 10/21/19 01/30/20 11/17/19 Rx ondansetron 8 mg PO Q8H PRN 11/07/19 01/30/20 11/17/19 History prochlorperazine maleate 10 mg PO Q4H PRN 11/07/19 01/30/20 11/15/19 History Eliquis 2.5 mg PO BID #60 tab 11/08/19 01/30/20 11/30/19 Rx alprazolam 0.125 mg PO TID PRN #30 tab 12/31/19 01/30/20 Unknown Rx flecainide 50 mg PO Q12H #60 tab 12/31/19 01/30/20 Unknown Rx levalbuterol HCl 1.25 mg INHALATION Q6H.RESPIRATORY 12/31/19 01/30/20 Unknown Rx #72 ml magnesium hydroxide [Milk of 30 ml PO DAILY PRN #3000 ml 12/31/19 01/30/20 Unknown Rx Magnesia] metoprolol tartrate 25 mg PO BID #60 tab 12/31/19 01/30/20 Unknown Rx pantoprazole 40 mg PO DAILY #30 tab 12/31/19 01/30/20 Unknown Rx sucralfate 1 g PO AC&BEDTIME #300 ml 12/31/19 01/30/20 Unknown Rx alprazolam 0.5 mg tablet 0.5 mg PO BID PRN #60 tab 01/21/20 01/30/20 Unknown Rx sertraline 100 mg tablet 200 mg PO DAILY #30 tab 01/21/20 01/30/20 Unknown Rx sennosides-docusate sodium 1 tab-cap PO BID PRN 01/30/20 01/30/20 Unknown History zolpidem 5 mg PO BEDTIME PRN 01/30/20 01/30/20 Unknown History Allergies Allergy/AdvReac Type Severity Reaction Status Date / Time No Known Allergies Allergy Verified 11/30/19 08:30 Current Medications Current Medications Generic Name Dose Route Start Last Admin Trade Name Freq PRN Reason Stop Dose Admin Alprazolam 0.5 mg 01/30/20 13:27 02/02/20 00:50 Xanax PO 0.5 mg BID PRN Administration anxiety Apixaban 2.5 mg 01/30/20 21:00 02/02/20 07:58 Eliquis PO 2.5 mg Q12H VIKY Administration Benzonatate 100 mg 01/31/20 15:00 02/02/20 07:55 Tessalon Pearls PO 100 mg TID VIKY Administration Budesonide 0.5 mg 01/31/20 18:00 01/31/20 19:49 Pulmicort INHALATION 0.5 mg BID VIKY Administration Ferrous Sulfate 325 mg 01/30/20 18:00 02/02/20 07:55 Ferrous Sulfate PO 325 mg BID VIKY Administration Flecainide Acetate 50 mg 01/30/20 21:00 02/02/20 08:30 Tambocor PO 50 mg Q12H VIKY Administration Guaifenesin 1,200 mg 01/30/20 18:00 02/02/20 07:54 Mucinex PO 1,200 mg BID VIKY Administration Piperacillin Sod/Tazobactam 50 mls @ 12.5 mls/hr 01/31/20 16:00 02/02/20 09:46 Sod 3.375 gm/ Sodium Chloride IV 12.5 mls/hr Q8H VIKY Administration Protocol Vancomycin HCl 1,000 mg/ 250 mls @ 250 mls/hr 02/01/20 20:00 02/02/20 07:52 Sodium Chloride IV 250 mls/hr Q12H VIKY Administration Protocol Levalbuterol HCl 1.25 mg 01/30/20 15:00 02/01/20 02:07 Xopenex INHALATION 1.25 mg Q6H.RESPIRATORY VIKY Administration Methylprednisolone Sodium Succinate 60 mg 02/01/20 14:00 02/02/20 13:28 Solu-Medrol IVP 60 mg Q8H VIKY Administration Metoclopramide HCl 5 mg 01/31/20 16:30 02/02/20 07:56 Reglan IVP 5 mg Q8H VIKY Administration Metoprolol Tartrate 50 mg 01/31/20 18:00 02/02/20 07:56 Lopressor PO 50 mg BID VIKY Administration Multivitamins Therapeutic 1 tab 01/31/20 09:00 02/02/20 07:56 Multivitamin Tab PO 1 tab DAILY VIKY Administration Oxycodone/Acetaminophen 1 - 2 tab 01/30/20 13:27 02/01/20 15:48 Percocet 5-325 Mg PO 2 tab Q4H PRN Administration Moderate To Severe Pain Pantoprazole Sodium 40 mg 01/31/20 09:00 02/02/20 07:56 Protonix PO 40 mg DAILY VIKY Administration Fluticasone/Salmeterol 1 puff 02/01/20 08:00 02/02/20 11:45 Advair Diskus 500-50 INHALATION Not Given BID.RESPIRATORY VIKY Sertraline HCl 200 mg 01/31/20 09:00 02/02/20 07:55 Zoloft PO 200 mg DAILY VIKY Administration Sucralfate 1 gm 01/30/20 17:00 02/02/20 13:31 Carafate Oral Liq PO 1 gm AC&BEDTIME VIKY Administration Tamsulosin HCl 0.4 mg 01/30/20 21:00 02/01/20 21:57 Flomax PO 0.4 mg BEDTIME VIKY Administration Tiotropium [place] 18 mcg 02/01/20 08:00 02/02/20 11:45 Spiriva INHALATION Not Given DAILY.RESPIRATORY VIKY Zolpidem Tartrate 5 mg 01/30/20 13:27 02/02/20 00:50 Ambien PO 5 mg BEDTIME PRN Administration Sleep PFSH Acute PFSH: Medical History Anemia Anorexia nervosa, restricting type Closed left clavicular fracture Generalized anxiety disorder H/O clavicle fracture with hardware History of pulmonary embolism Intermittent atrial fibrillation Major depressive disorder, recurrent severe without psychotic features Sinus tachycardia SOB (shortness of breath) Squamous cell lung cancer Tachycardia Surgical History H/O neck surgery History of shoulder surgery Hx of cholecystectomy Family History Mother Cancer Bladder Denies family history of Anesthesia complication Bleeding disorder Social History Smoking and tobacco status: former smoker Quit status (tobacco): has quit using tobacco Former quit date comment: 3 months ago Alcohol intake: former Lives independently: Yes Household members: children Current occupational status: disabled History of recent travel: No Current gender identity: Male Vitals/I&O/Wt Last Vital Signs Temp 97.8 F 02/02/20 16:00 Pulse 147 H 02/02/20 16:00 Resp 22 H 02/02/20 16:00 BP 111/68 02/02/20 16:00 Pulse Ox 96 02/02/20 16:00 02/02/20 02/02/20 02/02/20 06:59 14:59 22:59 Intake Total 50 / 400 Output Total 125 / 125 Balance 50 / -550 -125 / -125 Physical Exam Narrative: EXAM NARRATIVE: GENERAL: Frail man lying in bed in respiratory distress HEENT: Extraocular movement intact. Pupils equal round reactive to light. No pallor or icterus. NECK: No JVD. CARDIOVASCULAR SYSTEM: S1-S2 regular. tachycardia+. No murmur rubs or gallops. RESPIRATORY SYSTEM: coarse bilateral breath sounds, decreased at bases ABDOMEN: Soft, nontender and nondistended. Normal bowel sounds present. EXTREMITIES: No cyanosis or clubbing. No edema. No signs of chronic venous insufficiency. HOME ENERGY RATER: Patient is alert oriented ?3. No focal neurological deficits. SKIN: Normal turgor and temperature. PSYCH: Normal insight and judgment. Data Imaging^: CT Abd/Pel: Radiologist's impression: IMPRESSION: 1. There is mild mucosal thickening of the descending and sigmoid colon consistent with a nonspecific colitis. There is proximal colonic constipation. 2. The stomach is distended. 3. The bladder wall is thickened. This is nonspecific and may represent bladder outlet obstruction, inflammation or infection. Neoplastic process is included in the differential. CTA Chest: Radiologist's impression: IMPRESSION: 1. No evidence for pulmonary embolus. 2. There is heterogeneous consolidation in the right upper lobe similar to the prior study consistent with neoplasm. Air-fluid levels are present in the consolidated regions which may represent necrosis or infection. 3. Multifocal bilateral pulmonary infiltrates and ground-glass opacities have worsened when compared to the prior study and are consistent with pneumonia. Imaging features can be seen with COVID-19 pneumonia, though are nonspecific and can occur with a variety of infectious and noninfectious processes. (Reference: Silva) 4. There are bilateral pleural effusions with underlying compressive atelectasis or infiltrate. 5. The stomach is distended raising concern for gastric outlet obstruction. 6. Esophageal mucosal thickening is similar to the prior study. CXR: Radiologist's impression: IMPRESSION: 1. Stable left lower lobe parenchymal density probable pneumonia 2. Resolving pneumonia right perihilar region. 3. Right apical pleural thickening 4. Elevation of the right hemidiaphragm. 5. Left central line in good position. 6. Postsurgical hardware cervical spine and left clavicle Other Data: Attestation for Other Data: I personally reviewed and interpreted the following: Other data: Transthoracic echocardiogram 09 November 2019 CONCLUSIONS Possibly normal LV size and ejection fraction. Aortic valve appears to be stenotic. Possibly normal RV size and ejection fraction. No pericardial effusion Technically very limited study. No previous study is available for comparison. A&P Assessment and plan (1) Atrial flutter with rapid ventricular response: Increase flecainide 100 mg twice daily, -Continue Eliquis and metoprolol tartrate 50 mg twice daily. May use metoprolol tartrate 5 mg IV as needed. -He did not tolerate digoxin in the past. No CP/palpitations. -May have to consider amiodarone (however not the best choice given current status of his lungs.). Another option would be CV, however he is not fully anticoagulated with Eliquis 2.5 twice a day. Status: Acute (2) Intermittent atrial fibrillation: Status: Acute (3) Respiratory failure with hypoxia: I think he would be better off in CSU/ICU Status: Acute Qualifiers: Chronicity: acute on chronic Qualified Code(s): J96.21 - Acute and chronic respiratory failure with hypoxia (4) Metastatic lung cancer (metastasis from lung to other site): Status: Acute Qualifiers: Laterality: unspecified laterality Qualified Code(s): C34.90 - Malignant neoplasm of unspecified part of unspecified bronchus or lung (5) Nausea: Status: Acute Additional A&P Information Pneumonia: on antibiotics per primary team. Hypokalemia Anemia Constipation Thank you for allowing me to participate in patient's care. Please feel free to call with questions or concerns. Consult Attestations Medical Necessity Statement: As per primary team Coding Level of Care Code Acute Electrostatic Painter for Padmini Fwleandra History Comprehensive Exam Comprehensive Medical Decision Making High Complexity Diagnoses Atrial flutter with rapid ventricular response I48.92 Intermittent atrial fibrillation I48.0 Respiratory failure with hypoxia J96.21 Chronicity: acute on chronic Metastatic lung cancer (metastasis from lung to other site) C34.90 Laterality: unspecified laterality Nausea R11.0
--- NOTE | 2020-02-02 18:04 | ECG_ITS ---
[facility] Test Date: 2020-02-02 Pat Name: Chalino Jeffrey Department: Room: 253 Gender: Male [employer] Activities Director: : 1950 Requested By: Kait Angela Order Number: [id number] Vicky MD: Kait Angela M.D. Measurements Intervals [place] Rate: 149 P: [place]: -1 QRS: 5 QRSD: 87 T: 46 QT: 288 QTc: 454 Interpretive Statements ATRIAL FLUTTER WITH RAPID VENTRICULAR RESPONSE POSSIBLE RIGHT VENTRICULAR CONDUCTION DELAY [RSR (QR) IN V1/V2] NONSPECIFIC T-WAVE ABNORMALITY ABNORMAL RHYTHM ECG Compared to ECG 02/01/2020 09:17:17 Sinus tachycardia no longer present Incomplete right bundle-branch block no longer present T-wave abnormality still present Electronically Signed On 02-02-2020 19:28:58 CDT by Kait Angela M.D. [id number]
[2020-02-02 20:04] LABS: Vancomycin Trough 11.9 ug/mL (10-15)
[2020-02-02] MEDS: amiodarone 50 mg/mL SDV 3 mL 150 MG IVP (20:39)
[2020-02-02] MEDS: flecainide 100 mg Tablet PO (20:40)
[2020-02-02] MEDS: tamsulosin 0.4 mg Capsule PO (20:43)
--- NOTE | 2020-02-02 21:51 | PC.NURSE ---
Patient arrived to CSU at 2150 from [place].
--- NOTE | 2020-02-02 22:18 | PC.NURSE ---
Got the COVID PCR negative report back. Dr. Simons called and asked him if he wanted to keep patient on isolation and if not if we could discontinue to the isolation. Orders received to discontinue isolation at this time. read back verbal order.
--- NOTE | 2020-02-02 23:27 | PC.NURSE ---
Patient resting in bed watching TV, had Metoprolol IVP ordered and BP is 86/[address] Simons and alexander to hold metoprolol dose. Patient is on Heated high flow oxygen at 55 L and 75% FiO2. Alert and orientated. Accessed port to administer ordered medications, doctor aware.
[2020-02-03] VITALS (23 sets, daily range): BP systolic 90–126; BP diastolic 61–90; PULSE 95–149; RESP 20–28; TEMP 36.4–36.8; O2SAT 87–99
[2020-02-03] MEDS: piperacillin-tazobactam 3.375 GM in sodium chloride 0.9% (plus) 50 ML IV ×3 (01:03→18:14)
--- NOTE | 2020-02-03 04:35 | PC.NURSE ---
Patient's heart rate continues to run 120's-140's with amio gtt running and currently at maintenance dose per protocol. Doctor Ronak aware, no new orders at this time.
[2020-02-03 05:49] LABS: Basophils % 0.1 %; Hematocrit 48.5 % (42.0-52.0); Lymphocytes # 0.6 10^3/uL (0.8-4.8); Lymphocytes % 4.2 %; Mean Corpuscular HGB Conc 30.9 g/dL (30.0-36.0); Mean Corpuscular Hemoglobin 29.3 pg (28.0-34.0); Mean Corpuscular Volume 94.7 fL (80-94); Mean Platelet Volume 10.1 fL (7.4-10.4); Monocytes # 0.6 10^3/uL (0.2-0.9); Monocytes % 4.4 %; Neutrophils % 90.3 %; Nucleated Red Blood Cells % 0 %; Platelet Count 250 10^3/cmm (130-400); Red Blood Count 5.12 10^6/uL (4.1-5.3); Red Cell Distribution Width 17.1 % (12.1-15.1); White Blood Count 13.6 10^3/uL (4.0-10.0)
[2020-02-03] MEDS: sucralfate 1 gm/10 mL Oral Liq UDC PO ×4 (06:02→20:47)
[2020-02-03 06:12] LABS: Alanine Aminotransferase 44 U/L (0-41); Albumin Level 3.4 g/dL (3.5-5.2); Alkaline Phosphatase 143 IU/L (40-130); Anion Gap 17.1 (5-19); Aspartate Amino Transferase 18 U/L (0-40); Blood Urea Nitrogen 24 mg/dL (8-23); Calcium 8.9 mg/dL (8.5-10.5); Carbon Dioxide 26 mmol/L (22-29); Chloride 99 mmol/L (98-107); Globulin 2.3 g/dL (1.3-4.6); Glomerular Filtration Rate 133.2 mL/min (90-130); Glucose 146 mg/dL (65-115); Magnesium 2.1 mg/dL (1.7-2.3); NT Pro B Type Natriuretic Pept 4821 pg/mL (0-125); Osmolality Calculated 293 mOsm/kg (285-295); Phosphorus 3.4 mg/dL (2.5-4.5); Potassium 4.1 mmol/L (3.5-5.1); Sodium 138 mmol/L (136-145); Total Bilirubin 0.4 mg/dL (0.15-1.2); Total Protein 5.7 g/dL (6.6-8.7)
[2020-02-03] MEDS: morphine 4 mg/mL SDV 1 mL 1 MG IVP (06:22)
[2020-02-03] MEDS: ALPRAZolam 0.5 mg Tablet PO ×2 (06:25→21:48)
--- NOTE | 2020-02-03 06:27 | PC.NURSE ---
Patients BP more stable at this time, patient is experiencing more air hunger and anxiety related to air hunger. PRN morphine and xanax administered to help with air hunger and anxiety per orders. Patient is currently resting in bed with eyes open. Heart rate is elevated. Dr. Simons aware, RT aware, call light within reach, continue care.
[2020-02-03] MEDS: digoxin 250 mcg/ml INJ 2 mL 500 MCG IVP (07:43)
--- NOTE | 2020-02-03 08:55 | PC.NURSE ---
Dr ramesh at bedside for assessment and rounding
--- NOTE | 2020-02-03 09:06 | P.PN_ITS ---
Subjective Subjective: Interval history: The patient continues have dyspnea with BiPAP. It is a little better with BiPAP. His heart rate continues to be quite elevated. He denies any active chest pains. Vitals/I&O/Wt Last Vital Signs Temp 97.8 F 02/03/20 06:45 Pulse 147 H 02/03/20 06:45 Resp 25 H 02/03/20 06:45 BP 105/83 02/03/20 06:45 Pulse Ox 94 02/03/20 06:45 02/02/20 02/03/20 02/03/20 22:59 06:59 14:59 Intake Total 230 / 530 571.025 / 1101.025 Output Total 650 / 775 100 / 875 100 / 100 Balance -420 / -245 471.025 / 226.025 -100 / -100 Physical Exam Narrative: EXAM NARRATIVE: General: Alert and oriented x3 Neck: No masses appreciated Heart: Tachycardia with regular rate. No murmurs. Lungs: Diffuse rhonchi. Patient is currently on BiPAP. Mild diffuse wheezes. Tachypnea present. Abdomen: No significant hepatosplenomegaly. No significant pain. Extremities: No edema. Data : 02/03/20 04:39 02/03/20 04:39 A&P Additional A&P Information 1. Hypoxia with respiratory failure -patient continues to have significant hypoxia and is currently in the upper 90s on BiPAP with 90% oxygen. Continue with BiPAP at this time and treatment of the underlying pneumonia. 2. Metastatic lung cancer -the patient has metastatic lung cancer in both lungs and received radiation treatment. The patient sees Dr. Sibley for oncology. The patient saw Dr. Sibley earlier this week and he recommended no further chemotherapy until his lungs are improved. I am not sure that the patient's lungs will improve significantly enough to be able to receive chemotherapy. I spoke with the patient today and he continues to want everything done. He also would like to have resuscitation if his heart were to stop. I had a katie discussion with him that our chances of being able to bring him back successfully would be low, however he stated that he still wants everything done possible. 3. Pneumonia -the patient is currently on Bactrim, Zosyn and vancomycin. Chest x-ray shows signs of pneumonia that is showing signs of improvement. Likely secondary to underlying cancer. 4. History of pulmonary embolism -the patient is on Eliquis for prophylaxis. 5. Anxiety -continue with Xanax as needed. 6. Constipation -milk of magnesia or senna for constipation. 7. Atrial flutter with RVR -Dr. Mckinney has kindly agreed to see the patient and the patient was increased on flecainide, however continues to have elevated heart rate problems. For this reason an amiodarone drip was started overnight and he still continues to be in a heart rate of 140s. Dr. Angela will speak with the patient regarding further options including possible cardioversion. 8. Prophylaxis -the patient is on Eliquis for prophylaxis. Attestations Medical Necessity Statement*: The patient will be here for continued management of the above issues and his stay will cross 2 midnights. Coding Level of Care Code Acute Stunner And Shackler for Padmini Killian
[2020-02-03 09:15] LABS: Coronavirus Lab Test PTC Negative
[2020-02-03] MEDS: apixaban 5 mg Tablet PO ×2 (09:17→20:46)
[2020-02-03] MEDS: sertraline 100 mg Tablet 200 MG PO (09:17)
[2020-02-03] MEDS: guaiFENesin 600 mg Tablet 1200 MG PO ×2 (09:17→18:13)
[2020-02-03] MEDS: benzonatate 100 mg Capsule PO ×3 (09:17→20:46)
[2020-02-03] MEDS: metoprolol tartrate 50 mg Tablet PO ×2 (09:17→18:13)
[2020-02-03] MEDS: ferrous sulfate EC 325 mg Tablet PO ×2 (09:18→18:12)
[2020-02-03] MEDS: levalbuterol 1.25 mg/3 mL Neb INHALATION ×4 (09:18→20:50)
[2020-02-03] MEDS: pantoprazole DR 40 mg Tablet PO (09:19)
[2020-02-03] MEDS: oxyCODONE-APAP 5-325 mg Tablet PO (10:38)
[2020-02-03] MEDS: metoprolol tartrate 1 mg/1 mL SDV 5 mL 5 MG IV (10:40)
[2020-02-03] MEDS: flecainide 100 mg Tablet PO (10:40)
[2020-02-03] MEDS: digoxin 250 mcg/ml INJ 2 mL IVP ×2 (13:23→18:29)
[2020-02-03] MEDS: vancomycin 1,000 MG in sodium chloride 0.9% 250 ML 250 MG IV ×2 (13:24→23:00)
--- NOTE | 2020-02-03 15:14 | PC.NURSE ---
Bi pap removed long enough for a drink and to take a medication patients o2 dropped to 89%
--- NOTE | 2020-02-03 17:54 | P.PN_ITS ---
Subjective Subjective: Interval history: Patient continues to have high oxygen requirement being on BiPAP and high flow oxygen via nasal cannula. Overnight he was transferred down to C[facility]. He remains in atrial flutter with heart rate in 130s to 140s. He was started on amiodarone drip after amiodarone 150 mg IV bolus. He also received digoxin 500 mcg bolus earlier today followed by 250 mcg x 1. Medications: Reviewed: Yes Medication Review Details: Current Medications Apixaban (Eliquis) 5 mg PO Q12H [facility]KY Last Admin: 02/03/20 09:17 Dose: 5 mg Documented by: Benzonatate (Tessalon Pearls) 100 mg PO TID [facility]KY Last Admin: 02/03/20 15:11 Dose: 100 mg Documented by: Budesonide (Pulmicort) 0.5 mg INHALATION BID [facility] Last Admin: 01/31/20 19:49 Dose: 0.5 mg Documented by: Ferrous Sulfate (Ferrous Sulfate) 325 mg PO BID [facility] Last Admin: 02/03/20 09:18 Dose: 325 mg Documented by: Flecainide Acetate (Tambocor) 100 mg PO Q12H [facility] Last Admin: 02/03/20 10:40 Dose: 100 mg Documented by: Guaifenesin (Mucinex) 1,200 mg PO BID [facility] Last Admin: 02/03/20 09:17 Dose: 1,200 mg Documented by: Piperacillin Sod/Tazobactam (Sod 3.375 gm/ Sodium Chloride) 50 mls @ 12.5 mls/hr IV Q8H [facility]KY; Protocol Last Infusion: 02/03/20 15:12 Dose: Infused Documented by: Amiodarone HCl 900 mg/Dextrose/ IV Miscellaneous Supplies 518 mls @ 0 mls/hr IV .Q0M [facility]KY; Protocol Last Admin: 02/03/20 15:13 Dose: 1 mg/min, 34.5 mls/hr Documented by: Vancomycin HCl 1,000 mg/ (Sodium Chloride) 250 mls @ 250 mls/hr IV Q12H [facility]; Protocol Last Infusion: 02/03/20 15:12 Dose: Infused Documented by: Ipratropium Sidney (Atrovent Neb) 0.5 mg INHALATION Q6H.RESPIRATORY [facility]KY Levalbuterol HCl (Xopenex) 1.25 mg INHALATION Q6H.RESPIRATORY [facility]KY Last Admin: 02/03/20 16:01 Dose: 1.25 mg Documented by: Magnesium Hydroxide (Milk Of Magnesia) 30 ml PO DAILY PRN PRN Reason: Constipation Methylprednisolone Sodium Succinate (Solu-Medrol) 60 mg IVP Q8H [facility] Last Admin: 02/03/20 13:23 Dose: 60 mg Documented by: Metoclopramide HCl (Reglan) 5 mg IVP Q8H [facility] Last Admin: 02/02/20 18:40 Dose: 5 mg Documented by: Metoprolol Tartrate (Lopressor) 50 mg PO BID [facility] Last Admin: 02/03/20 09:17 Dose: 50 mg Documented by: Metoprolol Tartrate (Metoprolol Tartrate) 5 mg IV Q4H [facility] Last Admin: 02/03/20 13:38 Dose: Not Given Documented by: Morphine Sulfate (Morphine) 1 mg IVP Q4H PRN PRN Reason: SEVERE PAIN Last Admin: 02/03/20 06:22 Dose: 1 mg Documented by: Multivitamins Therapeutic (Multivitamin Tab) 1 tab PO DAILY [facility] Last Admin: 02/02/20 07:56 Dose: 1 tab Documented by: Ondansetron HCl (Zofran) 8 mg PO Q8H PRN PRN Reason: Nausea Oxycodone/Acetaminophen (Percocet 5-325 Mg) 1 - 2 tab PO Q4H PRN PRN Reason: Moderate To Severe Pain Last Admin: 02/03/20 10:38 Dose: 2 tab Documented by: Pantoprazole Sodium (Protonix) 40 mg PO DAILY [facility] Last Admin: 02/03/20 09:19 Dose: 40 mg Documented by: Fluticasone/Salmeterol (Advair Diskus 500-50) 1 puff INHALATION BID.RESPIRATORY [facility] Last Admin: 02/02/20 20:39 Dose: Not Given Documented by: Senna/Docusate Sodium (Senna-S) 1 tab PO BID PRN PRN Reason: Constipation Sertraline HCl (Zoloft) 200 mg PO DAILY [facility] Last Admin: 02/03/20 09:17 Dose: 200 mg Documented by: Sucralfate (Carafate Oral Liq) 1 gm PO AC&BEDTIME [facility] Last Admin: 02/03/20 10:54 Dose: 1 gm Documented by: Tamsulosin HCl (Flomax) 0.4 mg PO BEDTIME [facility] Last Admin: 02/02/20 20:43 Dose: 0.4 mg Documented by: Tiotropium Sidney (Spiriva) 18 mcg INHALATION DAILY.RESPIRATORY [facility] Last Admin: 02/03/20 09:19 Dose: 2 puff Documented by: Vitals/I&O/Wt Last Vital Signs Temp 97.8 F 02/03/20 15:04 Pulse 120 H 02/03/20 16:06 Resp 20 H 02/03/20 16:06 BP 90/61 02/03/20 15:04 Pulse Ox 94 02/03/20 16:06 02/03/20 02/03/20 02/03/20 06:59 14:59 22:59 Intake Total 571.025 / 1101.025 887.077 / 887.077 861.825 / 1748.902 Output Total 100 / 875 100 / 100 400 / 500 Balance 471.025 / 226.025 787.077 / 787.077 461.825 / 1248.902 Physical Exam Narrative: EXAM NARRATIVE: GENERAL: Frail appearing man lying in bed in respiratory distress HEENT: Extraocular movement intact. Pupils equal round reactive to light. No pallor or icterus. NECK: No JVD. CARDIOVASCULAR SYSTEM: S1-S2 regular. tachycardia+. No murmur rubs or gallops. RESPIRATORY SYSTEM: coarse bilateral breath sounds, decreased at bases ABDOMEN: Soft, nontender and nondistended. Normal bowel sounds present. EXTREMITIES: No cyanosis or clubbing. No edema. No signs of chronic venous insufficiency. 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 No focal neurological deficits. SKIN: Normal turgor and temperature. PSYCH: Normal insight and judgment. Data : 02/03/20 04:39 02/03/20 04:39 A&P Assessment and plan (1) Atrial flutter with rapid ventricular response: -Difficult to control in setting of underlying respiratory failure. -Continue Eliquis and metoprolol tartrate 50 mg twice daily. continue to use metoprolol tartrate 5 mg IV as needed. -He did not tolerate digoxin in the past. He has been started again on digoxin. -He was started on amiodarone overnight (however not the best choice given cu rrent status of his lungs.) I will continue with the same. Discontinue flecainide. -Increase Eliquis to 5 mg twice a day. -Another option would be BRIDGER/CV but he would need to be intubated for that. May consider cardioversion without BRIDGER taking the risk of stroke. -These potential options were discussed in detail with patient and his son Milad. The decision was made to try medications another day and opt for cardioversion based on how he does today. -Given his underlying respiratory status, he may not stay in sinus rhythm in spite of being cardioverted. - Status: Acute (2) Intermittent atrial fibrillation: Status: Acute (3) Respiratory failure with hypoxia: I think he would be better off in CSU/ICU Status: Acute Qualifiers: Chronicity: acute on chronic Qualified Code(s): J96.21 - Acute and chronic respiratory failure with hypoxia (4) Metastatic lung cancer (metastasis from lung to other site): Status: Acute Qualifiers: Laterality: unspecified laterality Qualified Code(s): C34.90 - Malignant neoplasm of unspecified part of unspecified bronchus or lung (5) Nausea: Status: Acute Additional A&P Information Pneumonia: on antibiotics per primary team. Hypokalemia Anemia Constipation Thank you for allowing me to participate in patient's care. Please feel free to call with questions or concerns. Attestations Medical Necessity Statement*: As per primary team Coding Level of Care Code Acute Martial Arts Instructor for Padmini Killian Diagnoses Atrial flutter with rapid ventricular response I48.92 Intermittent atrial fibrillation I48.0 Respiratory failure with hypoxia J96.21 Chronicity: acute on chronic Metastatic lung cancer (metastasis from lung to other site) C34.90 Laterality: unspecified laterality Nausea R11.0
[2020-02-03] MEDS: ipratropium 0.5 mg/2.5 mL Neb INHALATION ×2 (18:01→20:50)
--- NOTE | 2020-02-03 18:38 | PC.NURSE ---
spoke with Dr maradiaga to clarify orders instructions given to hold IVP metoprolol give PO metoprolol IV digoxin instructions to continue amio drip at 1mg per min unless heart is stable at 110-20 then titrate amio and turn off 2 hours after po amio is given
--- NOTE | 2020-02-03 20:19 | PC.NURSE ---
Rounding: Patient is resting in bed on bipap. Patient denies any pain at this time. Patient is alert and oriented.
[2020-02-03] MEDS: tamsulosin 0.4 mg Capsule PO (20:46)
[2020-02-03] MEDS: amiodarone 200 mg Tablet 400 MG PO (20:46)
--- NOTE | 2020-02-03 21:38 | PC.NURSE ---
Dr. Simons called due to patient requesting his xanax and ambien. Patient states he is anxious and cant sleep. told provider what patient was taking the previous night. Orders to place an order for 0.5mg Xanax BID PO and Ambien 5mg PO. Read back verbal orders.
[2020-02-03] MEDS: zolpidem 5 mg Tablet PO (21:48)
[2020-02-04] VITALS (22 sets, daily range): BP systolic 109–129; BP diastolic 78–87; PULSE 67–120; RESP 18–40; TEMP 36.1–36.8; O2SAT 87–97
--- NOTE | 2020-02-04 01:11 | PC.NURSE ---
Patient HR just became stable under 120. Amio turned off per Dr. Angela orders.
[2020-02-04] MEDS: piperacillin-tazobactam 3.375 GM in sodium chloride 0.9% (plus) 50 ML IV ×2 (02:05→09:04)
[2020-02-04] MEDS: ALPRAZolam 0.5 mg Tablet PO ×2 (06:57→20:59)
[2020-02-04] MEDS: morphine 4 mg/mL SDV 1 mL 1 MG IVP (06:58)
--- NOTE | 2020-02-04 07:27 | PM.PN ---
Subjective Subjective: Interval history: The patient is having significant shortness of breath. The patient has had some tightness in his chest that he feels is from breathing hard. He denies any nausea, vomiting, abdominal pain. Vitals/I&O/Wt Last Vital Signs Temp 97.5 F L 02/04/20 04:00 Pulse 96 02/04/20 04:00 Resp 37 H 02/04/20 06:58 BP 126/87 02/04/20 04:00 Pulse Ox 88 L 02/04/20 06:58 02/03/20 02/04/20 02/04/20 22:59 06:59 14:59 Intake Total 861.825 / 1748.902 993.275 / 2742.177 Output Total 1050 / 1150 200 / 1350 Balance -188.175 / 598.902 793.275 / 1392.177 Physical Exam Narrative: EXAM NARRATIVE: General: Alert and oriented x3 Neck: No masses appreciated Heart: Tachycardia with irregular rate. No murmurs. Lungs: Patient is currently on BiPAP. Mild diffuse wheezes. Significant tachypnea present. Abdomen: No significant hepatosplenomegaly. No significant pain. Extremities: No edema. Data : 02/03/20 04:39 02/03/20 04:39 Micro: Microbiology 01/29/20 23:47 Blood Culture - Final Blood NO GROWTH AFTER 5 DAYS 01/29/20 22:12 Blood Culture - Final Blood NO GROWTH AFTER 5 DAYS A&P Additional A&P Information 1. Hypoxia with respiratory failure -patient continues to have significant hypoxia and is currently in the upper 90s on BiPAP with 90% oxygen. He is significantly more tachypneic today than yesterday and I am concerned that BiPAP is not going to be able to keep his oxygen levels up sufficiently. Intubation may be necessary at some point, however I would be highly concerned that he would not make it off the vent. The patient is currently a full code. I feel that his prognosis is quite poor. Continue with BiPAP at this time and treatment of the underlying pneumonia. I appreciate pulmonology's recommendations and continued management. 2. Metastatic lung cancer -the patient has metastatic lung cancer in both lungs and received radiation treatment. The patient sees Dr. Sibley for oncology. The patient saw Dr. Sibley earlier this week and he recommended no further chemotherapy until his lungs are improved. I am not sure that the patient's lungs will improve significantly enough to be able to receive chemotherapy. I spoke with the patient on 02/03/2020 and he continues to want everything done. He also would like to have resuscitation if his heart were to stop. I had a katie discussion with him that our chances of being able to bring him back successfully would be low, however he stated that he still wants everything done possible. 3. Pneumonia -the patient is currently on Bactrim, Zosyn and vancomycin. Chest x-ray shows signs of pneumonia that is showing signs of improvement. Likely secondary to underlying cancer. 4. History of pulmonary embolism -the patient is on Eliquis for prophylaxis. 5. Anxiety -continue with Xanax as needed. 6. Constipation -milk of magnesia or senna for constipation. 7. Atrial flutter with RVR -Dr. Angela has evaluated the patient and she is currently on digoxin, metoprolol. The amiodarone drip has been turned off currently. 8. Prophylaxis -the patient is on Eliquis for prophylaxis. Attestations Medical Necessity Statement*: The patient continues need inpatient care and is critically ill. His care will continue to cross 2 midnights. Coding Level of Care Code Acute Director Of Creative Services for Padmini Killian
--- NOTE | 2020-02-04 07:34 | XRR_ITS ---
PROCEDURE INFORMATION: Exam: XR Chest, 1 View Exam date and time: 02/04/2020 7:37 AM Age: 69 years old Clinical indication: Dyspnea; Type not specified; Patient HX: Lung cancer, chest pain TECHNIQUE: Imaging protocol: XR of the chest Views: 1 view. COMPARISON: CR XR chest 1V portable [id number] 02/02/2020 3:08 PM FINDINGS: Lungs: reticulonodular pattern throughout the left lung. Stable. Apparent resection of the right upper lobe. Volume loss on the right. Apical pleural thickening. Findings in the apex without change from 02-02-20. Please refer to the CT chest dated 01-31-20. Pleural space: See Lungs finding. Heart/Mediastinum: Unremarkable. No cardiomegaly. Vasculature: Chest port via the left subclavian approach with the tip overlying the superior vena cava. Bones/joints: Prior surgical fixation of the caudal aspect of the cervical spine. XR/XR chest 1V portable [id number] IMPRESSION: 1. Reticulonodular pattern throughout the left lung. Stable. No focal consolidation on the left. 2. Apparent resection of the right upper lobe. Volume loss on the right. Apical pleural thickening. Findings in the apex without change from 02-02-20. Please refer to the CT chest dated 01-31-20.
--- NOTE | 2020-02-04 07:47 | PC.NURSE ---
[id number] Dr Spain at bedside for assessment and POC
--- NOTE | 2020-02-04 07:59 | P.CONIM_ITS ---
Providers/Reason For Consult Consulting Physican/Specialty*: SAURABH DATAR /PULMONARY Reason for Consult*: ACUTE HYPOXEMIC RESPIRATORY FAILURE Attending Physician: Sumeet De Oliveira MD Primary Care Provider: Silverio Spain MD History of Present Illness History of Present Illness Chalino Jeffrey is a 69 year old male with past medical history of metastatic lung cancer and recent prolonged admission secondary to pneumonia and hypoxia. Patient was discharged from [facility] on January 14, 2020 after approximately 6 weeks in hospital. This time patient presented to emergency room secondary to significant shortness of breath at and increasing O2 requirements. Initially placed on BiPAP and later changed to high flow nasal cannula and was admitted with concern for recurrent pneumonia in left lower lung with increasing oxygen requirements. Pulmonary Consulted to evaluate for worsening oxygen requirement in the setting of what looks like recurrent superimposing pneumonia in a patient with underlying lung cancer.. Today patient at bedside is on BiPAP 16/10 with FiO2 80%. Appears to be in moderate respiratory distress. Review of Systems General: Reports: 10 or more systems reviewed and unremarkable except in HPI and below Meds/Allergies Home Medications and Allergies Home Medications Medication Instructions Recorded Confirmed Last Taken Type multivitamin [Multiple Vitamins] 1 tab PO DAILY 08/13/19 01/30/20 11/29/19 History ferrous sulfate 325 mg PO BID #60 tab 08/15/19 01/30/20 11/29/19 Rx tamsulosin 0.4 mg PO BEDTIME 10/07/19 01/30/20 11/29/19 History oxycodone-acetaminophen 1 - 2 tab PO Q4H PRN #120 tab 10/21/19 01/30/20 11/17/19 Rx ondansetron 8 mg PO Q8H PRN 11/07/19 01/30/20 11/17/19 History prochlorperazine maleate 10 mg PO Q4H PRN 11/07/19 01/30/20 11/15/19 History Eliquis 2.5 mg PO BID #60 tab 11/08/19 01/30/20 11/30/19 Rx alprazolam 0.125 mg PO TID PRN #30 tab 12/31/19 01/30/20 Unknown Rx flecainide 50 mg PO Q12H #60 tab 12/31/19 01/30/20 Unknown Rx levalbuterol HCl 1.25 mg INHALATION Q6H.RESPIRATORY 12/31/19 01/30/20 Unknown Rx #72 ml magnesium hydroxide [Milk of 30 ml PO DAILY PRN #3000 ml 12/31/19 01/30/20 Unknown Rx Magnesia] metoprolol tartrate 25 mg PO BID #60 tab 12/31/19 01/30/20 Unknown Rx pantoprazole 40 mg PO DAILY #30 tab 12/31/19 01/30/20 Unknown Rx sucralfate 1 g PO AC&BEDTIME #300 ml 12/31/19 01/30/20 Unknown Rx alprazolam 0.5 mg tablet 0.5 mg PO BID PRN #60 tab 01/21/20 01/30/20 Unknown Rx sertraline 100 mg tablet 200 mg PO DAILY #30 tab 01/21/20 01/30/20 Unknown Rx sennosides-docusate sodium 1 tab-cap PO BID PRN 01/30/20 01/30/20 Unknown History zolpidem 5 mg PO BEDTIME PRN 01/30/20 01/30/20 Unknown History Allergies Allergy/AdvReac Type Severity Reaction Status Date / Time No Known Allergies Allergy Verified 11/30/19 08:30 Current Medications Current Medications Generic Name Dose Route Start Last Admin Trade Name Freq PRN Reason Stop Dose Admin Alprazolam 0.5 mg 02/03/20 21:34 02/04/20 06:57 Xanax PO 0.5 mg BID PRN Administration ANXIETY Amiodarone HCl 400 mg 02/03/20 21:00 02/03/20 20:46 Cordarone PO 400 mg Q12H VIKY Administration Apixaban 5 mg 02/03/20 09:33 02/03/20 20:46 Eliquis PO 5 mg Q12H VIKY Administration Benzonatate 100 mg 01/31/20 15:00 02/03/20 20:46 Tessalon Pearls PO 100 mg TID VIKY Administration Budesonide 0.5 mg 01/31/20 18:00 01/31/20 19:49 Pulmicort INHALATION 0.5 mg BID VIKY Administration Ferrous Sulfate 325 mg 01/30/20 18:00 02/03/20 18:12 Ferrous Sulfate PO 325 mg BID VIKY Administration Guaifenesin 1,200 mg 01/30/20 18:00 02/03/20 18:13 Mucinex PO 1,200 mg BID VIKY Administration Piperacillin Sod/Tazobactam 50 mls @ 12.5 mls/hr 01/31/20 16:00 02/04/20 02:05 Sod 3.375 gm/ Sodium Chloride IV 12.5 mls/hr Q8H VIKY Administration Protocol Amiodarone HCl 900 mg/ 518 mls @ 0 mls/hr 02/02/20 21:00 02/04/20 01:10 Dextrose/ IV Miscellaneous IV 0 mg/min Supplies .Q0M VIKY 0 mls/hr Titration Protocol Per Protocol Vancomycin HCl 1,000 mg/ 250 mls @ 250 mls/hr 02/02/20 23:00 02/04/20 01:09 Sodium Chloride IV Infused Q12H VIKY Infusion Protocol Ipratropium [place] 0.5 mg 02/03/20 21:00 02/04/20 07:15 Atrovent Neb INHALATION Not Given Q6H.RESPIRATORY VIKY Levalbuterol HCl 1.25 mg 01/30/20 15:00 02/04/20 07:15 Xopenex INHALATION Not Given Q6H.RESPIRATORY VIKY Methylprednisolone Sodium Succinate 60 mg 02/01/20 14:00 02/04/20 06:03 Solu-Medrol IVP 60 mg Q8H VIKY Administration Metoclopramide HCl 5 mg 01/31/20 16:30 02/02/20 18:40 Reglan IVP 5 mg Q8H VIKY Administration Morphine Sulfate 1 mg 02/01/20 13:56 02/04/20 06:58 Morphine IVP 1 mg Q4H PRN Administration SEVERE PAIN Multivitamins Therapeutic 1 tab 01/31/20 09:00 02/02/20 07:56 Multivitamin Tab PO 1 tab DAILY VIKY Administration Oxycodone/Acetaminophen 1 - 2 tab 01/30/20 13:27 02/03/20 10:38 Percocet 5-325 Mg PO 2 tab Q4H PRN Administration Moderate To Severe Pain Pantoprazole Sodium 40 mg 01/31/20 09:00 02/03/20 09:19 Protonix PO 40 mg DAILY VIKY Administration Fluticasone/Salmeterol 1 puff 02/01/20 08:00 02/02/20 20:39 Advair Diskus 500-50 INHALATION Not Given BID.RESPIRATORY VIKY Sucralfate 1 gm 01/30/20 17:00 02/04/20 06:03 Carafate Oral Liq PO Not Given AC&BEDTIME VIKY Tamsulosin HCl 0.4 mg 01/30/20 21:00 02/03/20 20:46 Flomax PO 0.4 mg BEDTIME VIKY Administration Tiotropium [place] 18 mcg 02/01/20 08:00 02/03/20 09:19 Spiriva INHALATION 2 puff DAILY.RESPIRATORY VIKY Administration Zolpidem Tartrate 5 mg 02/03/20 21:35 02/03/20 21:48 Ambien PO 5 mg BEDTIME PRN Administration SLEEP PFSH Acute 2 PFSH: Medical History Anemia Anorexia nervosa, restricting type Closed left clavicular fracture Generalized anxiety disorder H/O clavicle fracture with hardware History of pulmonary embolism Intermittent atrial fibrillation Major depressive disorder, recurrent severe without psychotic features Sinus tachycardia SOB (shortness of breath) Squamous cell lung cancer Tachycardia Surgical History H/O neck surgery History of shoulder surgery Hx of cholecystectomy Family History Mother Cancer Bladder Denies family history of Anesthesia complication Bleeding disorder Social History Smoking and tobacco status: former smoker Quit status (tobacco): has quit using tobacco Former quit date comment: 3 months ago Alcohol intake: former Lives independently: Yes Household members: children Current occupational status: disabled History of recent travel: No Current gender identity: Male Vitals/I&O/Wt Last Vital Signs Temp 97.5 F L 02/04/20 04:00 Pulse 96 02/04/20 04:00 Resp 37 H 02/04/20 06:58 BP 126/87 02/04/20 04:00 Pulse Ox 88 L 02/04/20 06:58 02/03/20 02/04/20 02/04/20 22:59 06:59 14:59 Intake Total 861.825 / 1748.902 993.275 / 2742.177 Output Total 1050 / 1150 200 / 1350 Balance -188.175 / 598.902 793.275 / 1392.177 Physical Exam Narrative: EXAM NARRATIVE: General: alert, in moderate respiratory distress HEENT: conj clear, EOMI, PERRL, mmm, Neck: supple, no meningismus Heme: no cervical LAP Pulmonary: Bilateral diffuse expiratory and inspiratory wheeze Cardiovascular: rrr, nl s1s2, no mrg Abdomen: soft, nt, nd, no r/g, bs+ Extremities: pulses +, no edema, no c/c : no CVA tenderness Skin: intact, no rash MSK: no back or neck pain Neurologic: grossly intact Data Micro: Micro: Microbiology 01/29/20 23:47 Blood Culture - Fi nal Blood NO GROWTH AFTER 5 DAYS 01/29/20 22:12 Blood Culture - Fi nal Blood NO GROWTH AFTER 5 DAYS Other Data: Other data: Chest x-ray 02/04/2020: 1. Reticulonodular pattern throughout the left lung. Stable. No focal consolidation on the left. 2. Apparent resection of the right upper lobe. Volume loss on the right. Apical pleural thickening. Findings in the apex without change from 02-02-20. Please refer to the CT chest dated 01-31-20. CT chest 01/31/2020: 1. No evidence for pulmonary embolus. 2. There is heterogeneous consolidation in the right upper lobe similar to the prior study consistent with neoplasm. Air-fluid levels are present in the consolidated regions which may represent necrosis or infection. 3. Multifocal bilateral pulmonary infiltrates and ground-glass opacities have worsened when compared to the prior study and are consistent with pneumonia. Imaging features can be seen with COVID-19 pneumonia, though are nonspecific and can occur with a variety of infectious and noninfectious processes. (Reference: Ricardo) 4. There are bilateral pleural effusions with underlying compressive atelectasis or infiltrate. 5. The stomach is distended raising concern for gastric outlet obstruction. 6. Esophageal mucosal thickening is similar to the prior study. A&P Assessment and plan (1) Respiratory failure with hypoxia: Status: Acute Qualifiers: Chronicity: acute on chronic Qualified Code(s): J96.21 - Acute and chronic respiratory failure with hypoxia (2) Atrial flutter with rapid ventricular response: Status: Acute (3) Pneumonitis: Status: Acute (4) Pneumonia: Status: Acute Qualifiers: Pneumonia type: due to unspecified organism Laterality: left Lung location: lower lobe of lung Qualified Code(s): J18.9 - Pneumonia, unspecified organism (5) Squamous cell carcinoma of lung, stage III: Status: Acute Qualifiers: Laterality: right Qualified Code(s): C34.91 - Malignant neoplasm of unspecified part of right bronchus or lung (6) Centrilobular emphysema: Status: Acute #Acute hypoxic respiratory failure likely due to COPD exacerbated by pneumonia in patient with stage IIIb squamous cell lung carcinoma -Currently saturating more than 90% on BiPAP 16/10 and 80% FiO2 -CT chest on admission ruled out PE, but showed heterogeneous consolidation in right upper lobe similar to prior CT in November, air-fluid levels in consolidated areas representing necrosis or infection. Multifocal bilateral pulmonary infiltrates and groundglass opacities worsened. -COVID-19 PCR negative, urine Legionella and bacterial antigens negative, MRSA nares negative, blood cultures so far negative -BNP> 3000 last echo October 2019 reported as possibly normal LV size and ejection fraction with possible stenotic aortic valve - Currently covered with Zosyn, vancomycin, Bactrim -recommend to DC Zosyn and broaden coverage with meropenem or imipenem for ESBL/Pseudomonas coverage. Can DC vancomycin as MRSA nares is negative -On IV Solu-Medrol and nebulizations with Xopenex and Atrovent for COPD -Worsening respiratory status with increasing FiO2 requirements and lungs with cancer, GGO's, infiltrates-seems like patient will get intubated. If that happens it will be very difficult extubation. Patient understands this and would want to go for intubation if needed. be cavities. -At this point patient has A. fib RVR and is on Eliquis and amiodarone-not ideal to do bronchoscopy and biopsy -Recommended to send AFB's to rule out TB, TB QuantiFERON, Fungitell, galactomannan, induced sputum for PCP; respiratory viral panel, procalcitonin- Meanwhile will treat for underlying possible bacterial pneumonia and would not hesitate to start fungal coverage with IV micafungin or oral voriconazole in view of right upper cavities. -Repeat echo to evaluate for LV function and status of aortic stenosis -Recommended to give Lasix if hemodynamics allow to keep patient even to negative fluid balance -Received chemoradiation on October 06, 2019 with weekly carboplatin/Taxol and completed radiation therapy on November 19, 2019. He could not get recommended weekly carboplatin/Taxol because of on and off sickness. Last dose of weekly carboplatin/Taxol was given on November 13, 2019. -In the context of recent radiation-cannot rule out underlying radiation pneumonitis-however patient is already covered with steroids Medical condition, labs, investigations, medications, plan of care including CODE STATUS-everything explained in detail to the patient and son. Both verbalized understanding and agreed with the plan of care. Overall patient prognosis is very poor. Recommendations conveyed to Dr. Spain-hospitalist covering the patient Consult Attestations Medical Necessity Statement: Acute hypoxic respiratory failure secondary to COPD exacerbation worsened by pneumonia in patient with underlying stage IIIb lung squamous cell carcinoma s/p chemoradiation with possible underlying radiation pneumonitis Time Spent in Patient Care: 16 - 35 minutes (>than 50% of time spent in counselling and/or direct pt care on unit) . Critical Care Time: Critical Care Time (min): 45 Coding Level of Care Code New Pt Acute Cream Dipper for Chg Fwd Patient Type New History Comprehensive Exam Comprehensive Medical Decision Making High Complexity Diagnoses Respiratory failure with hypoxia J96.21 Chronicity: acute on chronic Atrial flutter with rapid ventricular response I48.92 Pneumonitis J18.9 Pneumonia J18.9 Pneumonia type: due to unspecified organism Laterality: left Lung location: lower lobe of lung Squamous cell carcinoma of lung, stage III C34.91 Laterality: right Centrilobular emphysema J43.2 Time Spent (min) 45
[2020-02-04] MEDS: levalbuterol 1.25 mg/3 mL Neb INHALATION ×3 (08:12→20:08)
[2020-02-04] MEDS: ipratropium 0.5 mg/2.5 mL Neb INHALATION ×3 (08:12→20:08)
[2020-02-04 08:16] LABS: Basophils % 0.2 %; Hematocrit 34.2 % (42.0-52.0); Hemoglobin 10.5 g/dL (11.7-16.6); Lymphocytes # 0.3 10^3/uL (0.8-4.8); Lymphocytes % 1.7 %; Mean Corpuscular HGB Conc 30.7 g/dL (30.0-36.0); Mean Corpuscular Volume 97.7 fL (80-94); Mean Platelet Volume 10.1 fL (7.4-10.4); Monocytes # 0.8 10^3/uL (0.2-0.9); Monocytes % 4.3 %; Neutrophils # 16.73 10^3/uL (1.8-7.7); Neutrophils % 92.6 %; Nucleated Red Blood Cells % 0 %; Platelet Count 279 10^3/cmm (130-400); Red Cell Distribution Width 16.7 % (12.1-15.1); White Blood Count 18.1 10^3/uL (4.0-10.0)
[2020-02-04 08:19] LABS: Troponin T (5th) Once 14 ng/L (0-15)
[2020-02-04] MEDS: digoxin 250 mcg/ml INJ 2 mL 125 MCG IVP (09:05)
[2020-02-04 09:06] LABS: Alanine Aminotransferase 39 U/L (0-41); Albumin Level 2.9 g/dL (3.5-5.2); Alkaline Phosphatase 156 IU/L (40-130); Blood Urea Nitrogen 19 mg/dL (8-23); Calcium 8.9 mg/dL (8.5-10.5); Carbon Dioxide 23 mmol/L (22-29); Chloride 101 mmol/L (98-107); Globulin 3.2 g/dL (1.3-4.6); Glomerular Filtration Rate 164.4 mL/min (90-130); Glucose 129 mg/dL (65-115); NT Pro B Type Natriuretic Pept 3286 pg/mL (0-125); Osmolality Calculated 288 mOsm/kg (285-295); Sodium 137 mmol/L (136-145); Total Bilirubin 0.3 mg/dL (0.15-1.2); Total Protein 6.1 g/dL (6.6-8.7)
[2020-02-04 09:07] LABS: Anion Gap 17.4 (5-19); Aspartate Amino Transferase 28 U/L (0-40); Potassium 4.4 mmol/L (3.5-5.1)
--- NOTE | 2020-02-04 09:15 | PC.NURSE ---
upon medication rounding. Patient states I don't feel up to taking my meds right now educated patient on importance of medications that have been ordered for heart rate control patient verbalizes understanding and is in agreement to try in a few minutes. Dr Angela on unit for assessments and rounding Dr Angela made aware of patient request to wait to take medications verbal instructions to at min have him take amioderone eliquis and metoprolol may non admin others if patient chooses.
--- NOTE | 2020-02-04 09:19 | DCPLANNER ---
IMM completed 02/04/2020 @ 0914. Copy of rights given to pt.
[2020-02-04] MEDS: metoprolol tartrate 25 mg Tablet PO ×3 (09:33→21:00)
[2020-02-04] MEDS: apixaban 5 mg Tablet PO ×2 (09:33→20:59)
[2020-02-04] MEDS: amiodarone 200 mg Tablet 400 MG PO ×2 (09:33→20:59)
[2020-02-04] MEDS: guaiFENesin 600 mg Tablet 1200 MG PO ×2 (09:36→18:36)
[2020-02-04] MEDS: pantoprazole DR 40 mg Tablet PO (09:36)
[2020-02-04] MEDS: sertraline 100 mg Tablet PO (09:36)
[2020-02-04] MEDS: benzonatate 100 mg Capsule PO ×3 (09:36→21:00)
[2020-02-04] MEDS: ferrous sulfate EC 325 mg Tablet PO ×2 (09:36→18:36)
--- NOTE | 2020-02-04 09:44 | PC.NURSE ---
patient did take po medications tolerated ok de-saturation noted while bipap was removed to give po medications noted increased rate in breathing and work of breathing patient recovered ok when bipap was replaced
--- NOTE | 2020-02-04 12:37 | P.PN_ITS ---
Subjective Subjective: Interval history: No new complaints. Continues to be short of breath with drop in oxygen saturation with minimal exertion. Medications: Reviewed: Yes Medication Review Details: Current Medications Alprazolam (Xanax) 0.5 mg PO BID PRN PRN Reason: ANXIETY Last Admin: 02/04/20 06:57 Dose: 0.5 mg Documented by: Amiodarone HCl (Cordarone) 400 mg PO Q12H [facility] Last Admin: 02/04/20 09:33 Dose: 400 mg Documented by: Apixaban (Eliquis) 5 mg PO Q12H [facility] Last Admin: 02/04/20 09:33 Dose: 5 mg Documented by: Benzonatate (Tessalon Pearls) 100 mg PO TID [facility] Last Admin: 02/04/20 09:36 Dose: 100 mg Documented by: Budesonide (Pulmicort) 0.5 mg INHALATION BID [facility] Last Admin: 01/31/20 19:49 Dose: 0.5 mg Documented by: Digoxin (Lanoxin) 125 mcg IVP DAILY [facility] Last Admin: 02/04/20 09:05 Dose: 125 mcg Documented by: Ferrous Sulfate (Ferrous Sulfate) 325 mg PO BID [facility] Last Admin: 02/04/20 09:36 Dose: 325 mg Documented by: Guaifenesin (Mucinex) 1,200 mg PO BID [facility] Last Admin: 02/04/20 09:36 Dose: 1,200 mg Documented by: Piperacillin Sod/Tazobactam (Sod 3.375 gm/ Sodium Chloride) 50 mls @ 12.5 mls/hr IV Q8H [facility]; Protocol Last Admin: 02/04/20 09:04 Dose: 12.5 mls/hr Documented by: Amiodarone HCl 900 mg/Dextrose/ IV Miscellaneous Supplies 518 mls @ 0 mls/hr IV .Q0M [facility]; Protocol Last Titration: 02/04/20 01:10 Dose: 0 mg/min, 0 mls/hr Documented by: Vancomycin HCl 1,000 mg/ (Sodium Chloride) 250 mls @ 250 mls/hr IV Q12H [facility]; Protocol Last Infusion: 02/04/20 01:09 Dose: Infused Documented by: Ipratropium [place] (Atrovent Neb) 0.5 mg INHALATION Q6H.RESPIRATORY [facility] Last Admin: 02/04/20 08:12 Dose: 0.5 mg Documented by: Levalbuterol HCl (Xopenex) 1.25 mg INHALATION Q6H.RESPIRATORY [facility] Last Admin: 02/04/20 08:12 Dose: 1.25 mg Documented by: Magnesium Hydroxide (Milk Of Magnesia) 30 ml PO DAILY PRN PRN Reason: Constipation Methylprednisolone Sodium Succinate (Solu-Medrol) 60 mg IVP Q8H [facility] Last Admin: 02/04/20 06:03 Dose: 60 mg Documented by: Metoclopramide HCl (Reglan) 5 mg IVP Q8H [facility] Last Admin: 02/02/20 18:40 Dose: 5 mg Documented by: Metoprolol Tartrate (Lopressor) 25 mg PO TID [facility] Last Admin: 02/04/20 09:33 Dose: 25 mg Documented by: Metoprolol Tartrate (Metoprolol Tartrate) 5 mg IV Q4H PRN PRN Reason: tachycardia for HR>120 Morphine Sulfate (Morphine) 1 mg IVP Q4H PRN PRN Reason: SEVERE PAIN Last Admin: 02/04/20 06:58 Dose: 1 mg Documented by: Multivitamins Therapeutic (Multivitamin Tab) 1 tab PO DAILY [facility] Last Admin: 02/02/20 07:56 Dose: 1 tab Documented by: Ondansetron HCl (Zofran) 8 mg PO Q8H PRN PRN Reason: Nausea Oxycodone/Acetaminophen (Percocet 5-325 Mg) 1 - 2 tab PO Q4H PRN PRN Reason: Moderate To Severe Pain Last Admin: 02/03/20 10:38 Dose: 2 tab Documented by: Pantoprazole Sodium (Protonix) 40 mg PO DAILY [facility] Last Admin: 02/04/20 09:36 Dose: 40 mg Documented by: Fluticasone/Salmeterol (Advair Diskus 500-50) 1 puff INHALATION BID.RESPIRATORY [facility] Last Admin: 02/02/20 20:39 Dose: Not Given Documented by: Senna/Docusate Sodium (Senna-S) 1 tab PO BID PRN PRN Reason: Constipation Sertraline HCl (Zoloft) 100 mg PO DAILY [facility] Last Admin: 02/04/20 09:36 Dose: 100 mg Documented by: Sucralfate (Carafate Oral Liq) 1 gm PO AC&BEDTIME [facility] Last Admin: 02/04/20 06:03 Dose: Not Given Documented by: Tamsulosin HCl (Flomax) 0.4 mg PO BEDTIME [facility] Last Admin: 02/03/20 20:46 Dose: 0.4 mg Documented by: Tiotropium [place] (Spiriva) 18 mcg INHALATION DAILY.RESPIRATORY [facility] Last Admin: 02/04/20 08:12 Dose: Not Given Documented by: Zolpidem Tartrate (Ambien) 5 mg PO BEDTIME PRN PRN Reason: SLEEP Last Admin: 02/03/20 21:48 Dose: 5 mg Documented by: Vitals/I&O/Wt Last Vital Signs Temp 97.0 F L 02/04/20 08:26 Pulse 109 H 02/04/20 12:28 Resp 26 H 02/04/20 12:28 BP 109/82 02/04/20 08:26 Pulse Ox 94 02/04/20 12:28 02/03/20 02/04/20 02/04/20 22:59 06:59 14:59 Intake Total 861.825 / 7319.814 7622.275 / 2792.177 Output Total 1050 / 1150 200 / 1350 100 / 100 Balance -188.175 / 598.902 843.275 / 1442.177 -100 / -100 Physical Exam Narrative: EXAM NARRATIVE: GENERAL: Frail appearing man lying in bed in respiratory distress HEENT: Extraocular movement intact. Pupils equal round reactive to light. No pallor or icterus. NECK: No JVD. CARDIOVASCULAR SYSTEM: S1-S2 regular. tachycardia+. No murmur rubs or gallops. RESPIRATORY SYSTEM: coarse bilateral breath sounds, decreased at bases. Currently on BiPAP with high FiO2 requirement. ABDOMEN: Soft, nontender and nondistended. Normal bowel sounds present. EXTREMITIES: No cyanosis or clubbing. No edema. No signs of chronic venous insufficiency. 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 No focal neurological deficits. SKIN: Normal turgor and temperature. PSYCH: Normal insight and judgment. Data : 02/04/20 07:44 02/04/20 07:44 Micro: Microbiology 01/29/20 23:47 Blood Culture - Final Blood NO GROWTH AFTER 5 DAYS 01/29/20 22:12 Blood Culture - Final Blood NO GROWTH AFTER 5 DAYS A&P Assessment and plan (1) Atrial flutter with rapid ventricular response: -Difficult to control in setting of underlying respiratory failure. -Continue Eliquis and metoprolol tartrate 25 mg TID. continue to use metoprolol tartrate 5 mg IV as needed. - He has been started again on digoxin. -He was started on amiodarone overnight (however not the best choice given current status of his lungs.) I will continue with the same. Discontinue flecainide. -Started on amiodarone 400 mg twice daily -Increase Eliquis to 5 mg twice a day. -Another option would be BRIDGER/CV but he would need to be intubated for that (unsure if he would be able to be extubated). May consider cardioversion without BRIDGER taking the risk of stroke.Given his underlying respiratory status, he may not stay in sinus rhythm in spite of being cardioverted. -These potential options were discussed in detail with patient and his son Milad. -The decision was made to try medications for now and opt for cardioversion based on how he does. Status: Acute (2) Intermittent atrial fibrillation: Status: Acute (3) Respiratory failure with hypoxia: May need to be intubated however his ability to come off vent is doubtful. -Remains full code Status: Acute Qualifiers: Chronicity: acute on chronic Qualified Code(s): J96.21 - Acute and chronic respiratory failure with hypoxia (4) Metastatic lung cancer (metastasis from lung to other site): Squamous cell metastatic lung cancer s/p radiation -Further immunotherapy/palliative chemotherapy held given status ofhis lungs Status: Acute Qualifiers: Laterality: unspecified laterality Qualified Code(s): C34.90 - M alignant neoplasm of unspecified part of unspecified bronchus or lung (5) Nausea: Status: Acute Additional A&P Information Pneumonia: on antibiotics per primary team. Hypokalemia Anemia Anxiety Constipation Thank you for allowing me to participate in patient's care. Please feel free to call with questions or concerns. Attestations Medical Necessity Statement*: As per primary team Coding Level of Care Code Acute [place] [employer] for Padmini Fwleandra Diagnoses Atrial flutter with rapid ventricular response I48.92 Intermittent atrial fibrillation I48.0 Respiratory failure with hypoxia J96.21 Chronicity: acute on chronic Metastatic lung cancer (metastasis from lung to other site) C34.90 Laterality: unspecified laterality Nausea R11.0
[2020-02-04] MEDS: sucralfate 1 gm/10 mL Oral Liq UDC PO (12:44)
[2020-02-04] MEDS: vancomycin 1,000 MG in sodium chloride 0.9% 250 ML 250 MG IV (12:44)
[2020-02-04] MEDS: oxyCODONE-APAP 5-325 mg Tablet PO (13:13)
[2020-02-04 18:15] LABS: ABG PCO2 47.6 mmHg (35-45); ABG PH Result 7.41 (7.35-7.45); Alveolar-Arterial Oxygen Gradi 52.1 mmHg (5-10); Arterial Blood Gas Hematocrit 33.2 % (42-52); Base Excess ABG 4.6 mmol/L (-2.0-2.0); Blood Gas Allen Test Pos; Blood Gas Sample Site Brachial, right; Blood Gas Sample Type Arterial; Carboxyhemoglobin 1.2 %THgb (0.4-20.1); HGB O2 Sat 97.3 % (95-100); Ionized Calcium Level - ABG 1.2 mmol/L (1.1-1.4); Methemoglobin 0.6 % (0.4-1.5); Oxygen Device BIPAP; Oxygen Saturation ABG 99.1; Potassium Level - ABG 4.4 mmol/L (3.5-5.0); Total Hemoglobin 10.8 g/dL (14-18)
[2020-02-04] MEDS: FUROsemide 10 mg/mL SDV 2mL 40 MG IVP (18:36)
[2020-02-04] MEDS: tamsulosin 0.4 mg Capsule PO (20:59)
[2020-02-04] MEDS: zolpidem 5 mg Tablet PO (20:59)
[2020-02-04 21:58] LABS: Procalcitonin 0.12 ng/mL (0-0.5)
[2020-02-05] VITALS (28 sets, daily range): BP systolic 128–155; BP diastolic 76–113; PULSE 84–104; RESP 13–36; TEMP 35.7–36.4; O2SAT 92–98
[2020-02-05] MEDS: ipratropium 0.5 mg/2.5 mL Neb INHALATION ×4 (03:34→20:27)
[2020-02-05] MEDS: levalbuterol 1.25 mg/3 mL Neb INHALATION ×4 (03:34→20:27)
[2020-02-05 05:08] LABS: Basophils % 0.1 %; Hematocrit 32.5 % (42.0-52.0); Hemoglobin 9.9 g/dL (11.7-16.6); Lymphocytes # 0.5 10^3/uL (0.8-4.8); Lymphocytes % 3.3 %; Mean Corpuscular HGB Conc 30.5 g/dL (30.0-36.0); Mean Corpuscular Volume 95.3 fL (80-94); Mean Platelet Volume 10.1 fL (7.4-10.4); Monocytes # 0.4 10^3/uL (0.2-0.9); Neutrophils # 13.33 10^3/uL (1.8-7.7); Neutrophils % 91.5 %; Nucleated Red Blood Cells % 0 %; Platelet Count 259 10^3/cmm (130-400); Red Blood Count 3.41 10^6/uL (4.1-5.3); Red Cell Distribution Width 16.4 % (12.1-15.1); White Blood Count 14.6 10^3/uL (4.0-10.0)
[2020-02-05 05:53] LABS: Alanine Aminotransferase 36 U/L (0-41); Alkaline Phosphatase 158 IU/L (40-130); Anion Gap 11.9 (5-19); Aspartate Amino Transferase 14 U/L (0-40); Blood Urea Nitrogen 18 mg/dL (8-23); Calcium 9.1 mg/dL (8.5-10.5); Carbon Dioxide 34 mmol/L (22-29); Chloride 99 mmol/L (98-107); Globulin 3.1 g/dL (1.3-4.6); Glomerular Filtration Rate 212.7 mL/min (90-130); Glucose 137 mg/dL (65-115); Magnesium 2.1 mg/dL (1.7-2.3); NT Pro B Type Natriuretic Pept 2331 pg/mL (0-125); Osmolality Calculated 296 mOsm/kg (285-295); Phosphorus 2.7 mg/dL (2.5-4.5); Potassium 3.9 mmol/L (3.5-5.1); Sodium 141 mmol/L (136-145); Total Bilirubin 0.2 mg/dL (0.15-1.2); Total Protein 6.1 g/dL (6.6-8.7)
--- NOTE | 2020-02-05 06:11 | PC.NURSE ---
End of shift: Patient has rested well this shift on bipap. Patient remains alert and oriented. Patient is at 70% Fio2
[2020-02-05] MEDS: ALPRAZolam 0.5 mg Tablet PO ×2 (07:46→21:09)
[2020-02-05] MEDS: oxyCODONE-APAP 5-325 mg Tablet PO ×3 (07:46→20:26)
[2020-02-05] MEDS: sucralfate 1 gm/10 mL Oral Liq UDC PO ×4 (07:48→20:25)
[2020-02-05] MEDS: pantoprazole DR 40 mg Tablet PO (07:59)
[2020-02-05] MEDS: metoprolol tartrate 25 mg Tablet PO ×3 (07:59→20:25)
[2020-02-05] MEDS: ferrous sulfate EC 325 mg Tablet PO ×2 (08:00→18:21)
[2020-02-05] MEDS: guaiFENesin 600 mg Tablet 1200 MG PO ×2 (08:00→18:20)
[2020-02-05] MEDS: benzonatate 100 mg Capsule PO ×3 (08:00→20:25)
[2020-02-05] MEDS: sertraline 100 mg Tablet PO (08:00)
[2020-02-05] MEDS: amiodarone 200 mg Tablet 400 MG PO ×2 (08:00→20:25)
[2020-02-05] MEDS: apixaban 5 mg Tablet PO ×2 (08:00→20:26)
--- NOTE | 2020-02-05 08:00 | PC.NURSE ---
Initial rounding Pt noted desaturation of SpO2=84-86% on FiO2=70% on face mask BIPAP, noted to be sinus tachycardia in HR-110s, diaphoretic and fine tremors noted on hands. Pt reported of headache. Noted pt using a urinal and had a moderate amt of loose BM in bed. RT called for assistance. The Fio2 was increase to 100%. Pt SpO2 up to 94%. Bed linen change and eunice cares provided. 0830- RT at bedside and doctor at bedside, notified Dr at bedside on the event. Administered Xanax and Oxycodone for pain and 9 am meds. RT decrease FiO2 to 80% at this time.
--- NOTE | 2020-02-05 08:03 | USCV_ITS ---
Jeffrey Chalino Age: 69 Gender: M : 1950 Exam Date: 02/05/2020 11:40 Ordering Phys: Kait Angela MD ([email or web address]) Technologist: Patience Toribio [place] [facility] [place]: short of breath BP: 138 / 91 HR: 100 Rhythm: Sinus Technical Quality: Adequate MEASUREMENTS (Male / Female) Normal Values 2D ECHO LV Diastolic Diameter PLAX 3.9 cm 4.2 - 5.9 / 3.9 - 5.3 cm LV Systolic Diameter PLAX 2.4 cm IVS Diastolic Thickness 0.6 cm 0.6 - 1.0 / 0.6 - 0.9 cm IVS Systolic Thickness 1.0 cm LVPW Diastolic Thickness 0.7 cm 0.6 - 1.0 / 0.6 - 0.9 cm LVPW Systolic Thickness 1.4 cm LV Ejection Fraction 2D Teich 68.4 % LV Ejection Fraction MOD 2C 83.4 % LV Ejection Fraction 2C AL 83.9 % LA Diameter 2.5 cm LA Width 2.8 cm LA Height 3.2 cm RA Width 3.2 cm RA Height 4.1 cm M-MODE LV Diastolic Diameter MM 4.3 cm 4.2 - 5.9 / 3.9 - 5.3 cm LV Systolic Diameter MM 2.6 cm LV Ejection Fraction MM Teich 69.8 % IVS Diastolic Thickness MM 0.5 cm 0.6 - 1.0 / 0.6 - 0.9 cm IVS Systolic Thickness MM 0.9 cm LVPW Diastolic Thickness MM 0.7 cm 0.6 - 1.0 / 0.6 - 0.9 cm LVPW Systolic Thickness MM 1.5 cm Aortic Annulus Diameter 3.1 cm LA Ao Ratio MM 1.0 MV E Point Septal Separation 0.5 cm DOPPLER AV Peak Velocity 104.0 cm/s LVOT Peak Velocity 107.0 cm/s MV Peak Velocity 84.0 cm/s MV Area PHT 4.8 cm squared Mitral E to A Ratio 1.1 MV E' Velocity 42.0 cm/s Mitral E to MV E' Ratio 11.3 Mitral E to LV E' Lateral Ratio 9.7 Mitral E to LV E' Septal Ratio 13.5 TR Peak Velocity 286.5 cm/s TR Peak Gradient 32.8 mmHg Right Atrial Pressure 3.0 mmHg Pulmonary Artery Systolic Pressu 35.8 mmHg PV Peak Velocity 89.7 cm/s RV Acceleration Time 0.1 s FINDINGS Left Ventricle Normal left ventricular size, systolic function and wall thickness, with no regional wall motion abnormalities. Left ventricular ejection fraction is estimated at 65-70%. Indeterminate diastolic function. Right Ventricle Normal right ventricular size and systolic function, RVSP 35.8 mmHg. Right Atrium Upper normal right atrial size. Left Atrium Right atrial pressure estimated at 3 mmHg. Mitral Valve Structurally normal mitral valve. No mitral valve stenosis. Trace mitral valve regurgitation. Aortic Valve Structurally normal trileaflet aortic valve. No aortic valve stenosis. No aortic valve regurgitation. Tricuspid Valve Structurally normal tricuspid valve. Mild tricuspid valve regurgitation. Pulmonic Valve Structurally normal pulmonic valve. No pulmonary valve stenosis. Mild pulmonary valve regurgitation. Pericardium No pericardial effusion. Aorta Normal size aortic root and proximal ascending aorta. CONCLUSIONS 1. This is a technically difficult study. Ultrasound enhancing agent Optison was used per protocol. 2. Normal left ventricular size, systolic function and wall thickness, with no regional wall motion abnormalities. Left ventricular ejection fraction is estimated at 65-70%. Indeterminate diastolic function. 3. Normal right ventricular size and systolic function, RVSP 35.8 mmHg. 4. Mild tricuspid valve regurgitation. 5. Direct comparison to previous study is not possible given technically difficult previous study. Kait Angela MD (Electronically Signed) Final Date: 06 February 2020 10:26 S
--- NOTE | 2020-02-05 08:04 | PM.PN ---
Subjective Subjective: Interval history: The patient is feeling short of breath and sweaty. The patient denies any active chest pains. He had some diarrhea today. The patient denies any significant abdominal pain. Nursing notes that the patient's oxygen significantly desaturates with any significant movement including cleaning after a bowel movement. Vitals/I&O/Wt Last Vital Signs Temp 97.9 F 02/04/20 22:59 Pulse 101 H 02/05/20 07:49 Resp 36 H 02/05/20 07:49 BP 155/113 02/05/20 07:49 Pulse Ox 93 02/05/20 07:49 02/04/20 02/05/20 02/05/20 22:59 06:59 14:59 Intake Total 460 / 510 200 / 710 Output Total 760 / 1260 875 / 2135 100 / 100 Balance -300 / -750 -675 / -1425 -100 / -100 Physical Exam Narrative: EXAM NARRATIVE: General: Alert and oriented x3 Neck: No masses appreciated Heart: Tachycardia with irregular rate. No murmurs. Lungs: Patient is currently on BiPAP. Moderate diffuse wheezes. Significant tachypnea present. Diffuse rhonchi. Abdomen: No significant hepatosplenomegaly. No significant pain. Extremities: No edema. Data : 02/05/20 04:00 02/05/20 04:00 A&P Additional A&P Information 1. Hypoxia with respiratory failure -patient continues to have significant hypoxia and is currently in the upper 90s on BiPAP with 80% FiO2. He is significantly more tachypneic today than yesterday and I am concerned that BiPAP is not going to be able to keep his oxygen levels up sufficiently. Intubation may be necessary at some point, however I would be highly concerned that he would not make it off the vent. The patient is currently a full code. I feel that his prognosis is quite poor. Continue with BiPAP at this time and treatment of the underlying pneumonia. I appreciate pulmonology's recommendations and continued management. They have sent off for fungal and viral panels and have recommended Lasix therapy to see if this helps as well. 2. Metastatic lung cancer -the patient has metastatic lung cancer in both lungs and received radiation treatment. The patient sees Dr. Sibley for oncology. The patient saw Dr. Sibley earlier this week and he recommended no further chemotherapy until his lungs are improved. I am not sure that the patient's lungs will improve significantly enough to be able to receive chemotherapy. I spoke with the patient on 02/03/2020 and he continues to want everything done. He also would like to have resuscitation if his heart were to stop. I had a katie discussion with him that our chances of being able to bring him back successfully would be low, however he stated that he still wants everything done possible. 3. Pneumonia -the patient is currently on Bactrim, Zosyn and imipenem. Chest x-ray shows signs of pneumonia that is showing signs of improvement. Viral and fungal cultures are pending. We will treat depending on results. 4. History of pulmonary embolism -the patient is on Eliquis for prophylaxis. 5. Anxiety -continue with Xanax as needed. 6. Constipation -resolved 7. Atrial flutter with RVR -Dr. Angela has evaluated the patient and he is currently on digoxin, metoprolol. The amiodarone drip has been turned off and currently his heart rate is in the 100s. Continue with current meds. 8. Diarrhea -the patient has diarrhea and this may be secondary to underlying medications. We will check a C. difficile to be sure that this is not complicating issues. 9. Prophylaxis -the patient is on Eliquis for prophylaxis. Attestations Medical Necessity Statement*: Patient will be here for continued inpatient management as he is quite ill. His stay will continue to cross 2 midnights. Coding Level of Care Code Acute Melt House Supervisor for Padmini Killian
--- NOTE | 2020-02-05 10:07 | PM.PN ---
Subjective Subjective: Interval history: He continues to feel short of breath. He converted into sinus rhythm around 930 last night. He received a loading dose of Lasix yesterday and your urine output yesterday was 2.4 L. He is -1.7 L. Had an episode of diarrhea today and is currently on BiPAP with FiO2 70%. He did need to be placed on FiO2 of 100% briefly earlier today. Medications: Reviewed: Yes Medication Review Details: Current Medications Alprazolam (Xanax) 0.5 mg PO BID PRN PRN Reason: ANXIETY Last Admin: 02/05/20 07:46 Dose: 0.5 mg Documented by: Amiodarone HCl (Cordarone) 400 mg PO Q12H [facility] Last Admin: 02/05/20 08:00 Dose: 400 mg Documented by: Apixaban (Eliquis) 5 mg PO Q12H [facility] Last Admin: 02/05/20 08:00 Dose: 5 mg Documented by: Benzonatate (Tessalon Pearls) 100 mg PO TID [facility] Last Admin: 02/05/20 08:00 Dose: 100 mg Documented by: Budesonide (Pulmicort) 0.5 mg INHALATION BID [facility] Last Admin: 01/31/20 19:49 Dose: 0.5 mg Documented by: Digoxin (Lanoxin) 125 mcg IVP DAILY [facility] Last Admin: 02/04/20 09:05 Dose: 125 mcg Documented by: Ferrous Sulfate (Ferrous Sulfate) 325 mg PO BID [facility] Last Admin: 02/05/20 08:00 Dose: 325 mg Documented by: Guaifenesin (Mucinex) 1,200 mg PO BID [facility] Last Admin: 02/05/20 08:00 Dose: 1,200 mg Documented by: Amiodarone HCl 900 mg/Dextrose/ IV Miscellaneous Supplies 518 mls @ 0 mls/hr IV .Q0M [facility]; Protocol Last Titration: 02/04/20 01:10 Dose: 0 mg/min, 0 mls/hr Documented by: Imipenem/Cilastatin Sodium 250 (mg/ Sodium Chloride) 100 mls @ 200 mls/hr IV Q6H [facility]; Protocol Last Infusion: 02/05/20 06:22 Dose: Infused Documented by: Ipratropium [place] (Atrovent Neb) 0.5 mg INHALATION Q6H.RESPIRATORY [facility] Last Admin: 02/05/20 08:01 Dose: 0.5 mg Documented by: Levalbuterol HCl (Xopenex) 1.25 mg INHALATION Q6H.RESPIRATORY [facility] Last Admin: 02/05/20 08:02 Dose: 1.25 mg Documented by: Magnesium Hydroxide (Milk Of Magnesia) 30 ml PO DAILY PRN PRN Reason: Constipation Methylprednisolone Sodium Succinate (Solu-Medrol) 60 mg IVP Q8H [facility] Last Admin: 02/05/20 05:41 Dose: 60 mg Documented by: Metoclopramide HCl (Reglan) 5 mg IVP Q8H [facility] Last Admin: 02/02/20 18:40 Dose: 5 mg Documented by: Metoprolol Tartrate (Lopressor) 25 mg PO TID [facility] Last Admin: 02/05/20 07:59 Dose: 25 mg Documented by: Metoprolol Tartrate (Metoprolol Tartrate) 5 mg IV Q4H PRN PRN Reason: tachycardia for HR>120 Morphine Sulfate (Morphine) 1 mg IVP Q4H PRN PRN Reason: SEVERE PAIN Last Admin: 02/04/20 06:58 Dose: 1 mg Documented by: Multivitamins Therapeutic (Multivitamin Tab) 1 tab PO DAILY [facility] Last Admin: 02/02/20 07:56 Dose: 1 tab Documented by: Ondansetron HCl (Zofran) 8 mg PO Q8H PRN PRN Reason: Nausea Pantoprazole Sodium (Protonix) 40 mg PO DAILY [facility] Last Admin: 02/05/20 07:59 Dose: 40 mg Documented by: Fluticasone/Salmeterol (Advair Diskus 500-50) 1 puff INHALATION BID.RESPIRATORY [facility] Last Admin: 02/02/20 20:39 Dose: Not Given Documented by: Senna/Docusate Sodium (Senna-S) 1 tab PO BID PRN PRN Reason: Constipation Sertraline HCl (Zoloft) 100 mg PO DAILY [facility] Last Admin: 02/05/20 08:00 Dose: 100 mg Documented by: Sucralfate (Carafate Oral Liq) 1 gm PO AC&BEDTIME [facility] Last Admin: 02/05/20 07:48 Dose: 1 gm Documented by: Tamsulosin HCl (Flomax) 0.4 mg PO BEDTIME [facility] Last Admin: 02/04/20 20:59 Dose: 0.4 mg Documented by: Tiotropium [place] (Spiriva) 18 mcg INHALATION DAILY.RESPIRATORY [facility] Last Admin: 02/05/20 08:02 Dose: Not Given Documented by: Zolpidem Tartrate (Ambien) 5 mg PO BEDTIME PRN PRN Reason: SLEEP Last Admin: 02/04/20 20:59 Dose: 5 mg Documented by: Vitals/I&O/Wt Last Vital Signs Temp 97.9 F 02/04/20 22:59 Pulse 101 H 02/05/20 08:27 Resp 14 02/05/20 08:00 BP 155/113 02/05/20 07:49 Pulse Ox 98 02/05/20 08:27 02/04/20 02/05/20 02/05/20 22:59 06:59 14:59 Intake Total 460 / 510 200 / 710 30 / 30 Output Total 760 / 1260 875 / 2135 400 / 400 Balance -300 / -750 -675 / -1425 -370 / -370 Physical Exam Narrative: EXAM NARRATIVE: GENERAL: Frail appearing man lying propped up in bed in respiratory distress HEENT: Extraocular movement intact. Pupils equal round reactive to light. No pallor or icterus. NECK: No JVD. CARDIOVASCULAR SYSTEM: S1-S2 regular. tachycardia+. No murmur rubs or gallops. RESPIRATORY SYSTEM: coarse bilateral breath sounds, decreased at bases. Currently on BiPAP with high FiO2 requirement. ABDOMEN: Soft, nontender and nondistended. Normal bowel sounds present. EXTREMITIES: No cyanosis or clubbing. No edema. No signs of chronic venous insufficiency. SALESPERSON AUTOMOBILES: Patient is alert oriented ?3. No focal neurological deficits. SKIN: Normal turgor and temperature. PSYCH: Normal insight and judgment. Data : 02/05/20 04:00 02/05/20 04:00 A&P Assessment and plan (1) Atrial flutter with rapid ventricular response: Paroxysmal, [id number] score of at least 2, 1 for hypertension and 1 for age. -Difficult to control in setting of underlying respiratory failure. -Continue Eliquis and metoprolol tartrate 25 mg TID. continue to use metoprolol tartrate 5 mg IV as needed. - He has been started again on digoxin. -He was started on amiodarone overnight (however not the best choice given current status of his lungs.) I will continue with the same. Discontinued flecainide. -Continue on amiodarone 400 mg twice daily, Eliquis to 5 mg twice a day and digoxin 125 mcg daily. We will get a digoxin level tomorrow -Now that he has converted and heart rate is running 90s to low 100s; it would be a good time to get another echocardiogram on him. Status: Acute (2) Intermittent atrial fibrillation: Status: Acute (3) Respiratory failure with hypoxia: May need to be intubated however his ability to come off vent is doubtful. 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 Anemia Anxiety Thank you for allowing me to participate in patient's care. Please feel free to call with questions or concerns. Attestations Medical Necessity Statement*: Remains critically ill Coding Level of Care Code Acute Superintendent Meter Tests for Padmini Killian Diagnoses Atrial flutter with rapid ventricular response I48.92 Intermittent atrial fibrillation I48.0 Respiratory failure with hypoxia J96.21 Chronicity: acute on chronic Metastatic lung cancer (metastasis from lung to other site) C34.90 Laterality: unspecified laterality
[2020-02-05] MEDS: digoxin 125 mcg Tablet PO (12:52)
[2020-02-05] MEDS: perflutren protein-a microsphr 0.22 mg/mL SDV 3 mL IV (13:05)
--- NOTE | 2020-02-05 15:10 | PC.NURSE ---
Addendum entered by Mike Palencia RN 02/05/20 16:17: Pharmacy called regarding renewal of pt's scheduled Oxycodone in the MAR. Original Note: Called Dr on patient's pain medication Pt reported of headache 9/10 pain scale. Oxycodone has been discontinued. telephone order read back to renew oxycodone
--- NOTE | 2020-02-05 18:33 | PC.NURSE ---
Maximum Feeding assistance on High Flow Therapy per [place] Assisted pt on eating to decrease exertion demand. HOB= 90 degrees. On HFT on Flow= 50 L/min; O2=70%; VS=HR 90 to 95, SpO2=92% while eating. Tolerated the assistance well. Not in distress. Ate 100% of dinner. Relaxed in appearance. SpO2 maintains at 93 to 95%.
[2020-02-05] MEDS: tamsulosin 0.4 mg Capsule PO (20:26)
[2020-02-05] MEDS: zolpidem 5 mg Tablet PO (21:02)
--- NOTE | 2020-02-05 22:38 | PC.NURSE ---
Patient resting in bed with eyes closed and Bipap in place at this time. Patient very anxious earlier this shift and gave PRN xanax to help alleviate anxiety per patients request. Patient's call light is within reach. Continue care.
[2020-02-06] VITALS (68 sets, daily range): BP systolic 131–161; BP diastolic 80–104; PULSE 75–110; RESP 12–36; TEMP 36.3–36.6; O2SAT 84–99
--- NOTE | 2020-02-06 01:03 | PC.NURSE ---
Patient resting soundly with eyes closed at this time. O2 sats are currently in upper 90's on Bipap. Call light within reach, continue care.
[2020-02-06] MEDS: levalbuterol 1.25 mg/3 mL Neb INHALATION ×4 (02:10→21:52)
[2020-02-06] MEDS: ipratropium 0.5 mg/2.5 mL Neb INHALATION ×3 (02:10→14:09)
[2020-02-06 05:02] LABS: Basophils % 0.1 %; Hematocrit 31.5 % (42.0-52.0); Hemoglobin 9.5 g/dL (11.7-16.6); Lymphocytes # 0.4 10^3/uL (0.8-4.8); Lymphocytes % 3.3 %; Mean Corpuscular HGB Conc 30.2 g/dL (30.0-36.0); Mean Corpuscular Hemoglobin 29.7 pg (28.0-34.0); Mean Corpuscular Volume 98.4 fL (80-94); Mean Platelet Volume 9.7 fL (7.4-10.4); Monocytes # 0.4 10^3/uL (0.2-0.9); Monocytes % 3.5 %; Neutrophils # 10.07 10^3/uL (1.8-7.7); Neutrophils % 90.5 %; Nucleated Red Blood Cells % 0 %; Platelet Count 226 10^3/cmm (130-400); Red Cell Distribution Width 16.2 % (12.1-15.1); White Blood Count 11.1 10^3/uL (4.0-10.0)
[2020-02-06 05:39] LABS: Alanine Aminotransferase 31 U/L (0-41); Alkaline Phosphatase 150 IU/L (40-130); Anion Gap 11.1 (5-19); Aspartate Amino Transferase 13 U/L (0-40); Blood Urea Nitrogen 21 mg/dL (8-23); Calcium 9.4 mg/dL (8.5-10.5); Carbon Dioxide 34 mmol/L (22-29); Chloride 100 mmol/L (98-107); Globulin 2.7 g/dL (1.3-4.6); Glomerular Filtration Rate 164.4 mL/min (90-130); Glucose 145 mg/dL (65-115); Magnesium 2.4 mg/dL (1.7-2.3); NT Pro B Type Natriuretic Pept 1009 pg/mL (0-125); Osmolality Calculated 298 mOsm/kg (285-295); Potassium 4.1 mmol/L (3.5-5.1); Sodium 141 mmol/L (136-145); Total Bilirubin 0.2 mg/dL (0.15-1.2); Total Protein 5.7 g/dL (6.6-8.7)
[2020-02-06] MEDS: sucralfate 1 gm/10 mL Oral Liq UDC PO ×4 (05:51→20:39)
--- NOTE | 2020-02-06 06:16 | PC.NURSE ---
SHIFT SUMMARY: Patient anxious in the beginning of the shift, prn medication given per orders and per patients request to alleviate anxiety and promote sleep. Patient rested soundly all night, v/s remained stable and WNL. Respirations were more stable and less labored during this shift while resting, Bipap in place all night and currently. Call light within reach, continue care.
--- NOTE | 2020-02-06 09:18 | DCPLANNER ---
IMM completed today 02/06/2020 @ 0912. Copy of rights given to pt.
[2020-02-06] MEDS: amiodarone 200 mg Tablet 400 MG PO ×2 (09:19→20:38)
[2020-02-06] MEDS: guaiFENesin 600 mg Tablet 1200 MG PO ×2 (09:19→18:44)
[2020-02-06] MEDS: pantoprazole DR 40 mg Tablet PO (09:19)
[2020-02-06] MEDS: digoxin 125 mcg Tablet PO (09:19)
[2020-02-06] MEDS: benzonatate 100 mg Capsule PO ×3 (09:19→20:37)
[2020-02-06] MEDS: metoprolol tartrate 25 mg Tablet PO ×3 (09:19→20:38)
[2020-02-06] MEDS: sertraline 100 mg Tablet PO (09:20)
[2020-02-06] MEDS: apixaban 5 mg Tablet PO ×2 (09:20→20:38)
[2020-02-06] MEDS: ferrous sulfate EC 325 mg Tablet PO ×2 (09:20→18:43)
--- NOTE | 2020-02-06 13:42 | PM.PN ---
Subjective Subjective: Interval history: Patient feels better today. Her shortness of breath has improved. His white count is trending down. No events on telemetry. Medications: Reviewed: Yes Medication Review Details: Current Medications Alprazolam (Xanax) 0.5 mg PO BID PRN PRN Reason: ANXIETY Last Admin: 02/05/20 21:09 Dose: 0.5 mg Documented by: Amiodarone HCl (Cordarone) 400 mg PO Q12H [facility] Last Admin: 02/06/20 09:19 Dose: 400 mg Documented by: Apixaban (Eliquis) 5 mg PO Q12H [facility] Last Admin: 02/06/20 09:20 Dose: 5 mg Documented by: Benzonatate (Tessalon Pearls) 100 mg PO TID [facility] Last Admin: 02/06/20 09:19 Dose: 100 mg Documented by: Budesonide (Pulmicort) 0.5 mg INHALATION BID [facility] Last Admin: 01/31/20 19:49 Dose: 0.5 mg Documented by: Digoxin (Lanoxin) 125 mcg PO DAILY [facility] Last Admin: 02/06/20 09:19 Dose: 125 mcg Documented by: Ferrous Sulfate (Ferrous Sulfate) 325 mg PO BID [facility] Last Admin: 02/06/20 09:20 Dose: 325 mg Documented by: Guaifenesin (Mucinex) 1,200 mg PO BID [facility] Last Admin: 02/06/20 09:19 Dose: 1,200 mg Documented by: Amiodarone HCl 900 mg/Dextrose/ IV Miscellaneous Supplies 518 mls @ 0 mls/hr IV .Q0M [facility]; Protocol Last Titration: 02/04/20 01:10 Dose: 0 mg/min, 0 mls/hr Documented by: Imipenem/Cilastatin Sodium 250 (mg/ Sodium Chloride) 100 mls @ 200 mls/hr IV Q6H [facility]; Protocol Last Admin: 02/06/20 12:38 Dose: 100 mls/hr Documented by: Ipratropium [place] (Atrovent Neb) 0.5 mg INHALATION Q6H.RESPIRATORY [facility] Last Admin: 02/06/20 08:47 Dose: 0.5 mg Documented by: Levalbuterol HCl (Xopenex) 1.25 mg INHALATION Q6H.RESPIRATORY [facility] Last Admin: 02/06/20 08:46 Dose: 1.25 mg Documented by: Magnesium Hydroxide (Milk Of Magnesia) 30 ml PO DAILY PRN PRN Reason: Constipation Methylprednisolone Sodium Succinate (Solu-Medrol) 60 mg IVP Q8H [facility] Last Admin: 02/06/20 05:16 Dose: 60 mg Documented by: Metoclopramide HCl (Reglan) 5 mg IVP Q8H [facility] Last Admin: 02/02/20 18:40 Dose: 5 mg Documented by: Metoprolol Tartrate (Lopressor) 25 mg PO TID [facility] Last Admin: 02/06/20 09:19 Dose: 25 mg Documented by: Metoprolol Tartrate (Metoprolol Tartrate) 5 mg IV Q4H PRN PRN Reason: tachycardia for HR>120 Multivitamins Therapeutic (Multivitamin Tab) 1 tab PO DAILY [facility] Last Admin: 02/02/20 07:56 Dose: 1 tab Documented by: Ondansetron HCl (Zofran) 8 mg PO Q8H PRN PRN Reason: Nausea Oxycodone/Acetaminophen (Percocet 5-325 Mg) 1 - 2 tab PO Q4H PRN PRN Reason: Moderate To Severe Pain Last Admin: 02/05/20 20:26 Dose: 1 tab Documented by: Pantoprazole Sodium (Protonix) 40 mg PO DAILY [facility] Last Admin: 02/06/20 09:19 Dose: 40 mg Documented by: Fluticasone/Salmeterol (Advair Diskus 500-50) 1 puff INHALATION BID.RESPIRATORY [facility] Last Admin: 02/02/20 20:39 Dose: Not Given Documented by: Senna/Docusate Sodium (Senna-S) 1 tab PO BID PRN PRN Reason: Constipation Sertraline HCl (Zoloft) 100 mg PO DAILY [facility] Last Admin: 02/06/20 09:20 Dose: 100 mg Documented by: Sucralfate (Carafate Oral Liq) 1 gm PO AC&BEDTIME [facility] Last Admin: 02/06/20 10:49 Dose: 1 gm Documented by: Tamsulosin HCl (Flomax) 0.4 mg PO BEDTIME [facility] Last Admin: 02/05/20 20:26 Dose: 0.4 mg Documented by: Tiotropium [place] (Spiriva) 18 mcg INHALATION DAILY.RESPIRATORY [facility] Last Admin: 02/06/20 08:46 Dose: Not Given Documented by: Zolpidem Tartrate (Ambien) 5 mg PO BEDTIME PRN PRN Reason: SLEEP Last Admin: 02/05/20 21:02 Dose: 5 mg Documented by: Vitals/I&O/Wt Last Vital Signs Temp 97.4 F L 02/06/20 08:00 Pulse 91 02/06/20 11:38 Resp 18 02/06/20 11:38 BP 138/87 02/06/20 08:00 Pulse Ox 96 02/06/20 11:38 02/05/20 02/06/20 02/06/20 22:59 06:59 14:59 Intake Total 497 / 627 860 / 1487 480 / 480 Output Total 150 / 550 450 / 1000 250 / 250 Balance 347 / 77 410 / 487 230 / 230 Physical Exam Narrative: EXAM NARRATIVE: GENERAL: Frail appearing man lying propped up in bed in respiratory distress HEENT: Extraocular movement intact. Pupils equal round reactive to light. No pallor or icterus. NECK: No JVD. CARDIOVASCULAR SYSTEM: S1-S2 regular. No murmur rubs or gallops. RESPIRATORY SYSTEM: Improved air entry. Currently on high flow nasal cannula. ABDOMEN: Soft, nontender and nondistended. Normal bowel sounds present. EXTREMITIES: No cyanosis or clubbing. No edema. No signs of chronic venous insufficiency. C WPF DEVELOPER: Patient is alert oriented ?3. No focal neurological deficits. SKIN: Normal turgor and temperature. PSYCH: Normal insight and judgment. Data : 02/06/20 03:50 02/06/20 04:43 Micro: Microbiology 02/05/20 15:10 C.difficile Toxin B Gene (PCR) - Final Stool A&P Assessment and plan (1) Atrial flutter with rapid ventricular response: Paroxysmal, [id number] score of at least 2, 1 for hypertension and 1 for age. -Difficult to control in setting of underlying respiratory failure. -Continue Eliquis and metoprolol tartrate 25 mg TID. May use metoprolol tartrate 5 mg IV as needed. -Continue on amiodarone 400 mg twice daily today and change to 200 BID starting tomorrow, Eliquis to 5 mg twice a day and D/C digoxin 125 mcg daily. -Normal LV function on echocardiogram. Status: Acute (2) Intermittent atrial fibrillation: Status: Acute (3) Respiratory failure with hypoxia: May need to be intubated however his ability to come off vent is doubtful. 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 Anemia Anxiety Thank you for allowing me to participate in patient's care. Please feel free to call with questions or concerns. Attestations Medical Necessity Statement*: As per primay team. Coding Level of Care Code Acute Carpenter Supervisor Wooden Ship for Padmini Killian Diagnoses Atrial flutter with rapid ventricular response I48.92 Intermittent atrial fibrillation I48.0 Respiratory failure with hypoxia J96.21 Chronicity: acute on chronic Metastatic lung cancer (metastasis from lung to other site) C34.90 Laterality: unspecified laterality
[2020-02-06 14:19] LABS: Digoxin 1.5 ng/mL (0.6-1.2)
--- NOTE | 2020-02-06 14:45 | P.PN_ITS ---
Subjective Subjective: Interval history: The patient is breathing better compared to yesterday. He denies any chest pains. The patient denies any nausea or vomiting. He continues to have some diarrhea, however it is slightly better than yesterday. Vitals/I&O/Wt Last Vital Signs Temp 97.4 F L 02/06/20 08:00 Pulse 95 02/06/20 14:10 Resp 22 H 02/06/20 13:57 BP 138/87 02/06/20 08:00 Pulse Ox 96 02/06/20 13:57 02/05/20 02/06/20 02/06/20 22:59 06:59 14:59 Intake Total 497 / 627 860 / 1487 480 / 480 Output Total 150 / 550 450 / 1000 250 / 250 Balance 347 / 77 410 / 487 230 / 230 Physical Exam Narrative: EXAM NARRATIVE: General: Alert and oriented x3 Neck: No masses appreciated Heart: Tachycardia with irregular rate. No murmurs. Lungs: Patient is currently on high flow nasal oxygen. Mild diffuse wheezes. Significant tachypnea present. Diffuse rhonchi. Decreased air entry on the right lower lung. Abdomen: No significant hepatosplenomegaly. No significant pain. Extremities: No edema. Data : 02/06/20 03:50 02/06/20 04:43 Micro: Microbiology 02/05/20 15:10 C.difficile Toxin B Gene (PCR) - Final Stool A&P Additional A&P Information 1. Hypoxia with respiratory failure -the patient continues to have significant hypoxia, however this is improved and he is down to 60% FiO2 on high flow nasal cannula oxygen. He is now off of the BiPAP. The patient is currently a full code. I feel that his prognosis is quite poor long-term. Continue with Lasix therapy for likely fluid overload as well as antibiotics. I appreciate Dr. Monahan's recommendations and continued management. They have sent off for fungal and viral panels. 2. Metastatic lung cancer -the patient has metastatic lung cancer in both lungs and received chemo and radiation treatment in October. The patient sees Dr. Sibley for oncology. The patient saw Dr. Sibley earlier this week and he recommended no further chemotherapy until his lungs are improved. I am not sure that the patient's lungs will improve significantly enough to be able to receive chemotherapy. I spoke with the patient on 02/03/2020 and he continues to want everything done. He also would like to have resuscitation if his heart were to stop. I had a katie discussion with him that our chances of being able to bring him back successfully would be low, however he stated that he still wants everything done possible. 3. Pneumonia -the patient is currently on Bactrim and imipenem. Chest x-ray shows signs of pneumonia that is showing signs of improvement. Viral and fungal cultures are pending. We will treat depending on results. 4. History of pulmonary embolism -the patient is on Eliquis for prophylaxis. 5. Anxiety -continue with Xanax as needed. 6. Constipation -resolved 7. Atrial flutter with RVR -Dr. Angela has evaluated the patient and he is currently on digoxin, amiodarone and metoprolol. He is now in sinus rhythm with a heart rate in the 90s. 8. Diarrhea -the patient has diarrhea and this may be secondary to current medications. C. difficile was negative. 9. Prophylaxis -the patient is on Eliquis for prophylaxis. Attestations Medical Necessity Statement*: The patient continues need inpatient therapy for the above issues. His stay continues to cross 2 midnights. Coding Level of Care Code Acute Television Maintenance Worker for Padmini Killian
--- NOTE | 2020-02-06 17:38 | PM.PN ---
Subjective Subjective: Interval history: Patient reported his breathing is better than yesterday denied any other new complaints Medications: Reviewed: Yes Medication Review Details: Current Medications Alprazolam (Xanax) 0.5 mg PO BID PRN PRN Reason: ANXIETY Last Admin: 02/05/20 21:09 Dose: 0.5 mg Documented by: Amiodarone HCl (Cordarone) 400 mg PO Q12H [facility] Last Admin: 02/06/20 09:19 Dose: 400 mg Documented by: Apixaban (Eliquis) 5 mg PO Q12H [facility] Last Admin: 02/06/20 09:20 Dose: 5 mg Documented by: Benzonatate (Tessalon Pearls) 100 mg PO TID [facility] Last Admin: 02/06/20 09:19 Dose: 100 mg Documented by: Budesonide (Pulmicort) 0.5 mg INHALATION BID [facility] Last Admin: 01/31/20 19:49 Dose: 0.5 mg Documented by: Digoxin (Lanoxin) 125 mcg PO DAILY [facility] Last Admin: 02/06/20 09:19 Dose: 125 mcg Documented by: Ferrous Sulfate (Ferrous Sulfate) 325 mg PO BID [facility] Last Admin: 02/06/20 09:20 Dose: 325 mg Documented by: Guaifenesin (Mucinex) 1,200 mg PO BID [facility] Last Admin: 02/06/20 09:19 Dose: 1,200 mg Documented by: Amiodarone HCl 900 mg/Dextrose/ IV Miscellaneous Supplies 518 mls @ 0 mls/hr IV .Q0M [facility]; Protocol Last Titration: 02/04/20 01:10 Dose: 0 mg/min, 0 mls/hr Documented by: Imipenem/Cilastatin Sodium 250 (mg/ Sodium Chloride) 100 mls @ 200 mls/hr IV Q6H [facility]; Protocol Last Admin: 02/06/20 12:38 Dose: 100 mls/hr Documented by: Ipratropium Novi (Atrovent Neb) 0.5 mg INHALATION Q6H.RESPIRATORY [facility] Last Admin: 02/06/20 08:47 Dose: 0.5 mg Documented by: Levalbuterol HCl (Xopenex) 1.25 mg INHALATION Q6H.RESPIRATORY [facility] Last Admin: 02/06/20 08:46 Dose: 1.25 mg Documented by: Magnesium Hydroxide (Milk Of Magnesia) 30 ml PO DAILY PRN PRN Reason: Constipation Methylprednisolone Sodium Succinate (Solu-Medrol) 60 mg IVP Q8H [facility] Last Admin: 02/06/20 05:16 Dose: 60 mg Documented by: Metoclopramide HCl (Reglan) 5 mg IVP Q8H [facility] Last Admin: 02/02/20 18:40 Dose: 5 mg Documented by: Metoprolol Tartrate (Lopressor) 25 mg PO TID [facility] Last Admin: 02/06/20 09:19 Dose: 25 mg Documented by: Metoprolol Tartrate (Metoprolol Tartrate) 5 mg IV Q4H PRN PRN Reason: tachycardia for HR>120 Multivitamins Therapeutic (Multivitamin Tab) 1 tab PO DAILY [facility] Last Admin: 02/02/20 07:56 Dose: 1 tab Documented by: Ondansetron HCl (Zofran) 8 mg PO Q8H PRN PRN Reason: Nausea Oxycodone/Acetaminophen (Percocet 5-325 Mg) 1 - 2 tab PO Q4H PRN PRN Reason: Moderate To Severe Pain Last Admin: 02/05/20 20:26 Dose: 1 tab Documented by: Pantoprazole Sodium (Protonix) 40 mg PO DAILY [facility] Last Admin: 02/06/20 09:19 Dose: 40 mg Documented by: Fluticasone/Salmeterol (Advair Diskus 500-50) 1 puff INHALATION BID.RESPIRATORY [facility] Last Admin: 02/02/20 20:39 Dose: Not Given Documented by: Senna/Docusate Sodium (Senna-S) 1 tab PO BID PRN PRN Reason: Constipation Sertraline HCl (Zoloft) 100 mg PO DAILY [facility] Last Admin: 02/06/20 09:20 Dose: 100 mg Documented by: Sucralfate (Carafate Oral Liq) 1 gm PO AC&BEDTIME [facility] Last Admin: 02/06/20 10:49 Dose: 1 gm Documented by: Tamsulosin HCl (Flomax) 0.4 mg PO BEDTIME [facility] Last Admin: 02/05/20 20:26 Dose: 0.4 mg Documented by: Tiotropium Novi (Spiriva) 18 mcg INHALATION DAILY.RESPIRATORY [facility] Last Admin: 02/06/20 08:46 Dose: Not Given Documented by: Zolpidem Tartrate (Ambien) 5 mg PO BEDTIME PRN PRN Reason: SLEEP Last Admin: 02/05/20 21:02 Dose: 5 mg Documented by: Vitals/I&O/Wt Last Vital Signs Temp 97.4 F L 02/06/20 08:00 Pulse 90 02/06/20 15:18 Resp 22 H 02/06/20 15:18 BP 146/91 02/06/20 15:18 Pulse Ox 93 02/06/20 15:18 02/06/20 02/06/20 02/06/20 06:59 14:59 22:59 Intake Total 860 / 1487 720 / 720 Output Total 450 / 1000 250 / 250 Balance 410 / 487 470 / 470 Physical Exam Narrative: EXAM NARRATIVE: General: alert, in mild respiratory distress HEENT: conj clear, EOMI, PERRL, mmm, Neck: supple, no meningismus Heme: no cervical LAP Pulmonary: Decreased bilateral diffuse wheezing Cardiovascular: rrr, nl s1s2, no mrg Abdomen: soft, nt, nd, no r/g, bs+ Extremities: pulses +, no edema, no c/c : no CVA tenderness Skin: intact, no rash MSK: no back or neck pain Neurologic: grossly intact Data : 02/06/20 03:50 02/06/20 04:43 Micro: Microbiology 02/05/20 15:10 C.difficile Toxin B Gene (PCR) - Final Stool A&P Assessment and plan (1) Respiratory failure with hypoxia: Status: Acute Qualifiers: Chronicity: acute on chronic Qualified Code(s): J96.21 - Acute and chronic respiratory failure with hypoxia (2) Atrial flutter with rapid ventricular response: Status: Acute (3) Pneumonitis: Status: Acute (4) Pneumonia: Status: Acute Qualifiers: Laterality: left Lung location: lower lobe of lung Pneumonia type: due to unspecified organism Qualified Code(s): J18.9 - Pneumonia, unspecified organism (5) Squamous cell carcinoma of lung, stage III: Status: Acute Qualifiers: Laterality: right Qualified Code(s): C34.91 - Malignant neoplasm of unspecified part of right bronchus or lung (6) Centrilobular emphysema: Status: Acute #Acute hypoxic respiratory failure likely due to COPD exacerbated by pneumonia in patient with stage IIIb squamous cell lung carcinoma -Currently saturating more than 92% on High flow 40L 60% -CT chest on admission ruled out PE, but showed heterogeneous consolidation in right upper lobe similar to prior CT in November, air-fluid levels in consolidated areas representing necrosis or infection. Multifocal bilateral pulmonary infiltrates and groundglass opacities worsened. -COVID-19 PCR negative, urine Legionella and bacterial antigens negative, MRSA nares negative, blood cultures so far negative; - RVP, TB QuantiFERON, Fungitell, galactomannan, induced sputum for PCP pending; - Oxygenation improved after changing antibiotic to broaden coverage with imipenem for ESBL/Pseudomonas coverage & Bactrim -On IV Solu-Medrol and scheduled nebulizations with Xopenex and Atrovent for COPD -At this point patient has A. fib RVR and is on Eliquis and amiodarone/digoxin-not ideal to do bronchoscopy and biopsy -Meanwhile will treat for underlying possible bacterial pneumonia and have low threshold to start fungal coverage with IV micafungin or oral voriconazole in view of right upper cavities If pt does not improve clincally -Elevated BNP and last echo October 2019 reported as possibly normal LV size and ejection fraction with possible stenotic aortic valve -Repeat echo to evaluate for LV function and status of aortic stenosis - recommended Lasix 40 mg once to keep pt net negative to even -Received chemoradiation on October 06, 2019 with weekly carboplatin/Taxol and completed radiation therapy on November 19, 2019. He could not get recommended weekly carboplatin/Taxol because of on and off sickness. Last dose of weekly carboplatin/Taxol was given on November 13, 2019. -In the context of recent radiation-cannot rule out underlying radiation pneumonitis-however patient is already covered with steroids - Taper steroids to 60 mg q12hr If pt respirotory status worsens, patient would want to go for intubation inspite of knowing that it will be difficult to extubate du eto underlying malignancy and radiation pneumonitis. Medical condition, labs, investigations, medications, plan of care including CODE STATUS-everything explained in detail to the patient and son. Both verbalized understanding and agreed with the plan of care. Overall patient prognosis is very poor. Recommendations conveyed to Dr. Spain-hospitalist covering the patient Attestations Medical Necessity Statement*: Acute hypoxic respiratory failure patient with lung adenocarcinoma, radiation pneumonitis with possible COPD exacerbation and superimposed pneumonia still requiring high flow oxygen Time Spent in Patient Care: 16 - 35 minutes (>than 50% of time spent in counselling and/or direct pt care on unit). Coding Level of Care Code Established Pt Acute Consultant Dietitian for Chg Fwd Patient Type Established History Comprehensive Exam Comprehensive Medical Decision Making High Complexity Diagnoses Respiratory failure with hypoxia J96.21 Chronicity: acute on chronic Atrial flutter with rapid ventricular response I48.92 Pneumonitis J18.9 Pneumonia J18.9 Laterality: left Lung location: lower lobe of lung Pneumonia type: due to unspecified organism Squamous cell carcinoma of lung, stage III C34.91 Laterality: right Centrilobular emphysema J43.2 Time Spent (min) 30
[2020-02-06] MEDS: FUROsemide 10 mg/mL SDV 4mL 40 MG IVP (18:43)
[2020-02-06] MEDS: sulfamethoxazole-trimeth DS 160-800 mg Tablet 1 TAB PO (18:44)
[2020-02-06] MEDS: oxyCODONE-APAP 5-325 mg Tablet PO (18:48)
[2020-02-06] MEDS: ALPRAZolam 0.5 mg Tablet PO (20:38)
[2020-02-06] MEDS: zolpidem 5 mg Tablet PO (20:38)
[2020-02-06] MEDS: tamsulosin 0.4 mg Capsule PO (20:39)
[2020-02-06 20:54] LABS: Lactate Dehydrogenase 335 U/L (135-225)
--- NOTE | 2020-02-06 23:04 | PC.NURSE ---
ASSUMED CARE AT SHIFT CHANGE. PT DENIES PAIN, BUT IS ANXIOUS. PRN XANAX AND PRN AMBIEN WERE GIVEN AT HS. PT APPEARS TO BE DOING BETTER NOW. WILL CONTINUE TO MONITOR.
[2020-02-07] VITALS (20 sets, daily range): BP systolic 131–141; BP diastolic 76–91; PULSE 73–99; RESP 10–24; TEMP 36.4–36.7; O2SAT 87–97
[2020-02-07] MEDS: levalbuterol 1.25 mg/3 mL Neb INHALATION ×4 (03:44→20:38)
[2020-02-07 05:43] LABS: Basophils % 0.2 %; Hematocrit 35.4 % (42.0-52.0); Hemoglobin 10.9 g/dL (11.7-16.6); Lymphocytes # 0.8 10^3/uL (0.8-4.8); Lymphocytes % 5.1 %; Mean Corpuscular HGB Conc 30.8 g/dL (30.0-36.0); Mean Corpuscular Hemoglobin 29.6 pg (28.0-34.0); Mean Corpuscular Volume 96.2 fL (80-94); Mean Platelet Volume 10.5 fL (7.4-10.4); Monocytes # 0.6 10^3/uL (0.2-0.9); Monocytes % 3.9 %; Neutrophils # 13.69 10^3/uL (1.8-7.7); Neutrophils % 87.5 %; Nucleated Red Blood Cells % 0 %; Platelet Count 294 10^3/cmm (130-400); Red Blood Count 3.68 10^6/uL (4.1-5.3); Red Cell Distribution Width 15.9 % (12.1-15.1); White Blood Count 15.7 10^3/uL (4.0-10.0)
[2020-02-07] MEDS: sucralfate 1 gm/10 mL Oral Liq UDC PO ×4 (06:09→20:22)
--- NOTE | 2020-02-07 06:24 | PC.NURSE ---
PT DIDN'T GET MUCH REST. PT DENIES PAIN AT THIS TIME. WILL CONTINUE TO MONITOR.
[2020-02-07 06:32] LABS: Alanine Aminotransferase 39 U/L (0-41); Albumin Level 3.2 g/dL (3.5-5.2); Alkaline Phosphatase 157 IU/L (40-130); Anion Gap 10.6 (5-19); Aspartate Amino Transferase 18 U/L (0-40); Blood Urea Nitrogen 19 mg/dL (8-23); Calcium 9.1 mg/dL (8.5-10.5); Carbon Dioxide 37 mmol/L (22-29); Chloride 94 mmol/L (98-107); Globulin 2.9 g/dL (1.3-4.6); Glomerular Filtration Rate 212.7 mL/min (90-130); Glucose 118 mg/dL (65-115); NT Pro B Type Natriuretic Pept 1136 pg/mL (0-125); Osmolality Calculated 289 mOsm/kg (285-295); Potassium 3.6 mmol/L (3.5-5.1); Sodium 138 mmol/L (136-145); Total Bilirubin 0.2 mg/dL (0.15-1.2); Total Protein 6.1 g/dL (6.6-8.7)
--- NOTE | 2020-02-07 08:48 | P.PN_ITS ---
Subjective Subjective: Interval history: Patient feels better today, remains on high flow nasal cannula with FiO2 of 60%. Medications: Reviewed: Yes Vitals/I&O/Wt Last Vital Signs Temp 97.8 F 02/06/20 23:45 Pulse 99 02/07/20 08:40 Resp 18 02/07/20 08:34 BP 141/88 02/07/20 07:57 Pulse Ox 93 02/07/20 08:34 02/06/20 02/07/20 02/07/20 22:59 06:59 14:59 Intake Total 200 / 1020 100 / 1120 360 / 360 Output Total 990 / 1240 975 / 2215 Balance -790 / -220 -875 / -1095 360 / 360 Physical Exam Narrative: EXAM NARRATIVE: GENERAL: Frail appearing man lying propped up in bed in respiratory distress HEENT: Extraocular movement intact. Pupils equal round reactive to light. No pallor or icterus. NECK: No JVD. CARDIOVASCULAR SYSTEM: S1-S2 regular. No murmur rubs or gallops. RESPIRATORY SYSTEM: Improved air entry. Currently on high flow nasal cannula. ABDOMEN: Soft, nontender and nondistended. Normal bowel sounds present. EXTREMITIES: No cyanosis or clubbing. No edema. No signs of chronic venous insufficiency. TELEMEDICINE PHYSICIAN: Patient is alert oriented ?3. No focal neurological deficits. SKIN: Normal turgor and temperature. PSYCH: Normal insight and judgment. Data : 02/07/20 04:50 02/07/20 04:50 A&P Assessment and plan (1) Atrial flutter with rapid ventricular response: Paroxysmal, [id number] score of at least 2, 1 for hypertension and 1 for age. -Difficult to control in setting of underlying respiratory failure. -Change metoprolol tartrate to 50 mg twice daily. May use metoprolol tartrate 5 mg IV as needed. -Continue on amiodarone 200 BID, Eliquis 5 mg twice a day and D/C digoxin 125 mcg daily. -Normal LV function on echocardiogram. Status: Acute (2) Intermittent atrial fibrillation: Status: Acute (3) Respiratory failure with hypoxia: May need to be intubated however his ability to come off vent is doubtful. 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 COPD Anemia Anxiety Thank you for allowing me to participate in patient's care. Please feel free to call with questions or concerns. Attestations Medical Necessity Statement*: As per primary team Coding Level of Care Code Acute Machine Tool Dresser for Padmini Fwd Diagnoses Atrial flutter with rapid ventricular response I48.92 Intermittent atrial fibrillation I48.0 Respiratory failure with hypoxia J96.21 Chronicity: acute on chronic Metastatic lung cancer (metastasis from lung to other site) C34.90 Laterality: unspecified laterality
[2020-02-07] MEDS: benzonatate 100 mg Capsule PO ×3 (09:22→20:22)
[2020-02-07] MEDS: guaiFENesin 600 mg Tablet 1200 MG PO ×2 (09:22→17:11)
[2020-02-07] MEDS: apixaban 5 mg Tablet PO ×2 (09:22→20:22)
[2020-02-07] MEDS: sulfamethoxazole-trimeth DS 160-800 mg Tablet 1 TAB PO ×2 (09:22→17:11)
[2020-02-07] MEDS: amiodarone 200 mg Tablet PO ×2 (09:22→20:23)
[2020-02-07] MEDS: ferrous sulfate EC 325 mg Tablet PO ×2 (09:22→17:11)
[2020-02-07] MEDS: sertraline 100 mg Tablet PO (09:22)
[2020-02-07] MEDS: pantoprazole DR 40 mg Tablet PO (09:22)
[2020-02-07] MEDS: metoprolol tartrate 50 mg Tablet PO ×2 (09:22→17:11)
[2020-02-07] MEDS: oxyCODONE-APAP 5-325 mg Tablet PO ×2 (09:23→20:30)
--- NOTE | 2020-02-07 13:04 | PM.PN ---
Subjective Subjective: Interval history: This morning patient was examined, he is on 60 L 40% FiO2, remained afebrile overnight, no complaints of shortness of breath, no lightheadedness, dizziness, continues to have a poor appetite, over 2 L urine output, no lightheadedness, no dizziness, no chest pain Vitals/I&O/Wt Last Vital Signs Temp 97.7 F 02/07/20 11:42 Pulse 96 02/07/20 11:42 Resp 14 02/07/20 11:42 BP 131/91 02/07/20 11:42 Pulse Ox 94 02/07/20 11:42 02/06/20 02/07/20 02/07/20 22:59 06:59 14:59 Intake Total 200 / 1020 100 / 1120 940 / 940 Output Total 990 / 1240 975 / 2215 Balance -790 / -220 -875 / -1095 940 / 940 Physical Exam Const: COMMON NORMALS: no acute distress and patient oriented x3 GENERAL APPEARANCE: ill appearing NUTRITIONAL APPEARANCE: thin Neck/C-Spine: COMMON NORMALS: no JVD Resp: COMMON NORMALS: normal respiratory effort, No retractions and No use of accessory muscles AUSCULTATION: crackles and wheezes Cardio: COMMON NORMALS: no JVD, regular rate, regular rhythm, S1 normal heart sound present and S2 normal heart sound present RATE: regular rate RHYTHM: regular rhythm HEART SOUNDS: S1 normal heart sound present and S2 normal heart sound present GI: COMMON NORMALS: Normal to inspection, nondistended, normoactive bowel sounds present, Soft to palpation, non-tender, No hepatosplenomegaly present, no masses and no bruits PALPATION: Yes Soft to palpation and Yes No hepatosplenomegaly present Extremity: COMMON NORMALS: capillary refill normal, no clubbing, cyanosis or edema, no calf tenderness and no pedal edema Neuro: COMMON NORMALS: patient oriented x3 Psych: COMMON NORMALS: mental status grossly normal Data : 02/07/20 04:50 02/07/20 04:50 A&P Assessment and plan (1) Hypoxia: Status: Acute (2) Acute respiratory distress: Status: Acute (3) Pneumonitis: Status: Acute (4) History of pulmonary embolism: Status: Acute (5) Metastatic lung cancer (metastasis from lung to other site): Status: Acute Qualifiers: Laterality: unspecified laterality Qualified Code(s): C34.90 - Malignant neoplasm of unspecified part of unspecified bronchus or lung (6) Atrial fibrillation with rapid ventricular response: Status: Acute (7) Physical deconditioning: Status: Acute (8) Anemia: Status: Acute Qualifiers: Anemia type: unspecified type Qualified Code(s): D64.9 - Anemia, unspecified (9) Nausea: Status: Acute Additional A&P Information 1. Acute hypoxic respiratory failure: Multifactorial related to COPD, pneumonia, stage IIIb squamous cell carcinoma, history of pulmonary embolism -Recently had a prolonged hospitalization when he was discharged to [facility]. Most discharged from [facility] on January 13 started having difficulty in breathing acutely a day prior to discharge. -Currently on 60 L, 40% FiO2 continue IV Solu-Medrol -Currently patient on Primaxin and Bactrim -Continue IV Solu-Medrol -continue inhaler therapy -COVID-19 PCR negative -Urine Legionella and bacterial antigens negative -MRSA nares negative -Blood cultures negative so far -QuantiFERON, galactomannan, PCP -If patient has fevers, clinical deterioration will consider adding antifungals -Continue Lasix therapy -Patient is a full code Atrial fibrillation: Continue amiodarone 200 mg twice daily Continue maternal 25 3 times daily Anticoagulation with Eliquis. History of pulmonary embolism -the patient is on Eliquis for prophylaxis. Anxiety -continue with Xanax as needed. Home dose Zoloft. Constipation -milk of magnesia or senna for constipation. Prophylaxis -the patient is on Eliquis for prophylaxis. Dysphagia diet Eliquis will help with DVT prophylaxis also. Protonix for PUD prophylaxis Attestations Medical Necessity Statement*: Patient requires hospitalization, for acute respiratory failure Coding Level of Care Code Acute Steel Spar Operator for g Fwd Diagnoses Hypoxia R09.02 Acute respiratory distress R06.03 Pneumonitis J18.9 History of pulmonary embolism Z86.711 Metastatic lung cancer (metastasis from lung to other site) C34.90 Laterality: unspecified laterality Atrial fibrillation with rapid ventricular response I48.91 Physical deconditioning R53.81 Anemia D64.9 Anemia type: unspecified type Nausea R11.0
[2020-02-07 14:53] LABS: Quantiferon Mitogen 2.32 IU/mL; Quantiferon Nil 0.01 IU/mL; Quantiferon TB Gold NEGATIVE (NEGATIVE)
--- NOTE | 2020-02-07 15:01 | PC.NURSE ---
pt resting in bed, requested the bed mireles. pt placed on bed mireles. call light within reach and instructed to push when he was finished and we would clean him up. will continue to monitor.
[2020-02-07] MEDS: zolpidem 5 mg Tablet PO (20:22)
[2020-02-07] MEDS: tamsulosin 0.4 mg Capsule PO (20:23)
[2020-02-07] MEDS: ALPRAZolam 0.5 mg Tablet PO (20:23)
--- NOTE | 2020-02-07 22:04 | PC.NURSE ---
ASSUMED CARE AT SHIFT CHANGE. PT DENIES PAIN. PT STATES THAT THEY ARE ANXIOUS. PRN XANAX AND PRN AMBIEN WERE GIVEN AT HS. WILL CONTINUE TO MONITOR.
[2020-02-08] VITALS (89 sets, daily range): BP systolic 79–150; BP diastolic 52–80; PULSE 76–120; RESP 12–28; TEMP 36.4–36.9; O2SAT 75–97
[2020-02-08] MEDS: levalbuterol 1.25 mg/3 mL Neb INHALATION ×4 (02:14→19:59)
[2020-02-08 05:17] LABS: Basophils # 0.1 10^3/uL (0.0-0.1); Basophils % 0.2 %; Hematocrit 35.9 % (42.0-52.0); Hemoglobin 11.2 g/dL (11.7-16.6); Lymphocytes # 0.9 10^3/uL (0.8-4.8); Lymphocytes % 4.3 %; Mean Corpuscular HGB Conc 31.2 g/dL (30.0-36.0); Mean Corpuscular Hemoglobin 29.6 pg (28.0-34.0); Mean Platelet Volume 10.4 fL (7.4-10.4); Monocytes # 0.8 10^3/uL (0.2-0.9); Monocytes % 4.1 %; Neutrophils # 17.72 10^3/uL (1.8-7.7); Neutrophils % 87.5 %; Nucleated Red Blood Cells % 0 %; Platelet Count 300 10^3/cmm (130-400); Red Blood Count 3.78 10^6/uL (4.1-5.3); Red Cell Distribution Width 15.7 % (12.1-15.1); White Blood Count 20.3 10^3/uL (4.0-10.0)
[2020-02-08 05:40] LABS: Alanine Aminotransferase 35 U/L (0-41); Albumin Level 3.2 g/dL (3.5-5.2); Alkaline Phosphatase 165 IU/L (40-130); Anion Gap 11.8 (5-19); Aspartate Amino Transferase 17 U/L (0-40); Blood Urea Nitrogen 18 mg/dL (8-23); Carbon Dioxide 34 mmol/L (22-29); Chloride 96 mmol/L (98-107); Globulin 2.7 g/dL (1.3-4.6); Glomerular Filtration Rate 164.4 mL/min (90-130); Glucose 114 mg/dL (65-115); Magnesium 2.2 mg/dL (1.7-2.3); Osmolality Calculated 289 mOsm/kg (285-295); Phosphorus 2.3 mg/dL (2.5-4.5); Potassium 3.8 mmol/L (3.5-5.1); Sodium 138 mmol/L (136-145); Total Bilirubin 0.2 mg/dL (0.15-1.2); Total Protein 5.9 g/dL (6.6-8.7)
[2020-02-08 05:47] LABS: NT Pro B Type Natriuretic Pept 895 pg/mL (0-125); Procalcitonin 0.08 ng/mL (0-0.5)
[2020-02-08] MEDS: sucralfate 1 gm/10 mL Oral Liq UDC PO ×3 (06:19→21:09)
--- NOTE | 2020-02-08 06:34 | PC.NURSE ---
PT RESTING IN BED. PT DENIES PAIN AT THIS TIME. PT HAS 0 C/O. PT IS A BIT ANXIOUS ABOUT O2 STATS. WILL CONTINUE TO MONITOR.
--- NOTE | 2020-02-08 08:00 | PC.NURSE ---
pt breathing is labored. pt placed back on bipap from high flow this morning due to sat being 70's and not being able to recover. pt sat is in 90's on bipap. dr singh at bedside. decision to be moved to icu made by . asked pt if he were to need to be intubated if he wanted that pt replied with no. pt wants chest compression but no intubation. call light within reach, will continue to monitor.
[2020-02-08] MEDS: FUROsemide 10 mg/mL SDV 4mL 40 MG IVP ×2 (09:31→22:13)
--- NOTE | 2020-02-08 09:40 | PC.NURSE ---
report called to charline in icu. pt going to room 3. awaiting respiratory to help transport pt. will continue to monitor.
[2020-02-08] MEDS: azithromycin 500 MG in sodium chloride 0.9% 250 ML 250 MG IV ×2 (10:27→10:38)
[2020-02-08] MEDS: oxyCODONE-APAP 5-325 mg Tablet PO (10:32)
[2020-02-08] MEDS: multivitamin therapeutic Tablet 1 TAB PO (10:33)
[2020-02-08] MEDS: apixaban 5 mg Tablet PO ×2 (10:33→21:08)
[2020-02-08] MEDS: ferrous sulfate EC 325 mg Tablet PO ×2 (10:33→17:52)
[2020-02-08] MEDS: amiodarone 200 mg Tablet PO ×2 (10:33→21:08)
[2020-02-08] MEDS: guaiFENesin 600 mg Tablet 1200 MG PO ×2 (10:33→17:52)
[2020-02-08] MEDS: pantoprazole DR 40 mg Tablet PO (10:34)
[2020-02-08] MEDS: sertraline 100 mg Tablet PO (10:34)
[2020-02-08] MEDS: benzonatate 100 mg Capsule PO ×2 (10:34→21:08)
[2020-02-08] MEDS: metoprolol tartrate 50 mg Tablet PO ×2 (10:35→17:52)
--- NOTE | 2020-02-08 10:37 | PM.PN ---
Subjective Subjective: Interval history: Patient feels SOB today, he is on BiPap 16/10 FiO2 of 60%. Medications: Reviewed: Yes Vitals/I&O/Wt Last Vital Signs Temp 97.6 F 02/08/20 08:00 Pulse 105 H 02/08/20 10:05 Resp 24 H 02/08/20 10:05 BP 132/79 02/08/20 08:00 Pulse Ox 89 L 02/08/20 10:05 02/07/20 02/08/20 02/08/20 22:59 06:59 14:59 Intake Total 460 / 1500 100 / 1600 Output Total 1075 / 1075 450 / 1525 150 / 150 Balance -615 / 425 -350 / 75 -150 / -150 Physical Exam Narrative: EXAM NARRATIVE: GENERAL: Frail appearing man lying propped up in bed in respiratory distress HEENT: Extraocular movement intact. Pupils equal round reactive to light. No pallor or icterus. NECK: No JVD. CARDIOVASCULAR SYSTEM: S1-S2 regular. No murmur rubs or gallops. RESPIRATORY SYSTEM: coarse bilateral BS. ABDOMEN: Soft, nontender and nondistended. Normal bowel sounds present. EXTREMITIES: No cyanosis or clubbing. No edema. No signs of chronic venous insufficiency. [place] TECHNICIAN: Patient is alert oriented ?3. No focal neurological deficits. SKIN: Normal turgor and temperature. PSYCH: Normal insight and judgment. Data : 02/08/20 04:43 02/08/20 04:43 A&P Assessment and plan (1) Atrial flutter with rapid ventricular response: Paroxysmal, [id number] score of at least 2, 1 for hypertension and 1 for age. -Difficult to control in setting of underlying respiratory failure. -continue metoprolol tartrate 50 mg twice daily. May use metoprolol tartrate 5 mg IV as needed. -Continue on amiodarone 200 BID x 1 week and then 200 mg daily on 02/12, Eliquis 5 mg twice a day. -Normal LV function on echocardiogram. Status: Acute (2) Intermittent atrial fibrillation: Status: Acute (3) Respiratory failure with hypoxia: May need to be intubated however his ability to come off vent is doubtful. -Remains full code -agree with lasix. Status: Acute Qualifiers: Chronicity: acute on chronic Qualified Code(s): J96.21 - Acute and chronic respiratory failure with hypoxia (4) Metastatic lung cancer (metastasis from lung to other site): Squamous cell metastatic lung cancer s/p radiation -Further immunotherapy/palliative chemotherapy held given status of his lungs Status: Acute Qualifiers: Laterality: unspecified laterality Qualified Code(s): C34.90 - Malignant neoplasm of unspecified part of unspecified bronchus or lung Additional A&P Information Pneumonia: on antibiotics per primary team. COPD Anemia Anxiety Thank you for allowing me to participate in patient's care. Please feel free to call with questions or concerns. Attestations Medical Necessity Statement*: As per primary team Coding Level of Care Code Acute Medication Care Manager for Padmini Fwd Diagnoses Atrial flutter with rapid ventricular response I48.92 Intermittent atrial fibrillation I48.0 Respiratory failure with hypoxia J96.21 Chronicity: acute on chronic Metastatic lung cancer (metastasis from lung to other site) C34.90 Laterality: unspecified laterality
--- NOTE | 2020-02-08 10:58 | PC.SOCIAL ---
IMM Updated Page 2 of IMM updated and given to patient. Initialed, dated, and timed and placed back in chart.
--- NOTE | 2020-02-08 11:24 | P.PN_ITS ---
Subjective Subjective: Interval history: This morning Leo, patient's respiratory status worsen, had episodes of shortness of breath, placed on BiPAP, having intercostal retractions, nasal flaring, difficulty breathing, I discussed patient's goals of care. I had a discussion about the next step of intubation mechanical ventilation, discussed morbidity and mortality associated with him given his underlying condition, discussed the possible success. Patient voiced understanding, all questions answered, patient does not want to be intubated, does not want mechanical ventilation. I advised patient that we will continue BiPAP, however there might reach a point in which BiPAP will fail, at that point we will have to discuss about comfort care versus hospice, currently is not ready to make a decision. I discussed the remainder the patient's CODE STATUS, he wants to have chest compressions, he wants to have defibrillation, meds per ACLS protocol. I advised patient the neck step will be to move to the ICU, continue to monitor his respiratory status closely, I have broaden his antibiot ic coverage, added Lasix therapy,, add antifungal therapy, and monitor his respiratory status closely. Vitals/I&O/Wt Last Vital Signs Temp 97.6 F 02/08/20 08:00 Pulse 120 H 02/08/20 10:45 Resp 19 H 02/08/20 10:45 BP 132/79 02/08/20 10:15 Pulse Ox 90 02/08/20 10:45 02/07/20 02/08/20 02/08/20 22:59 06:59 14:59 Intake Total 460 / 1500 100 / 1600 245.833 / 245.833 Output Total 1075 / 1075 450 / 1525 1100 / 1100 Balance -615 / 425 -350 / 75 -854.167 / -854.167 Physical Exam Const: COMMON NORMALS: no acute distress and patient oriented x3 GENERAL APPEARANCE: ill appearing NUTRITIONAL APPEARANCE: thin HENMT: COMMON NORMALS: normocephalic HEAD & SCALP: normocephalic Neck/C-Spine: COMMON NORMALS: no JVD Resp: COMMON NORMALS: normal respiratory effort EFFORT & INSPECTION: Yes tachypneic, Yes retractions and Yes uses accessory muscles AUSCULTATION: crackles and breath sounds absent Cardio: COMMON NORMALS: no JVD, regular rhythm, S1 normal heart sound present and S2 normal heart sound present RATE: tachycardic RHYTHM: regular rhythm HEART SOUNDS: S1 normal heart sound present and S2 normal heart sound present GI: COMMON NORMALS: Normal to inspection, nondistended, normoactive bowel s ounds present, Soft to palpation, non-tender, No hepatosplenomegaly present, no masses and no bruits PALPATION: Yes Soft to palpation and Yes No hepatosplenomegaly present Extremity: COMMON NORMALS: capillary refill normal, no clubbing, cyanosis or edema, no calf tenderness and no pedal edema Neuro: COMMON NORMALS: patient oriented x3 Psych: COMMON NORMALS: mental status grossly normal Data : 02/08/20 04:43 02/08/20 04:43 A&P Assessment and plan (1) Hypoxia: Status: Acute (2) Acute respiratory distress: Status: Acute (3) Pneumonitis: Status: Acute (4) History of pulmonary embolism: Status: Acute (5) Metastatic lung cancer (metastasis from lung to other site): Status: Acute Qualifiers: Laterality: unspecified laterality Qualified Code(s): C34.90 - Malignant neoplasm of unspecified part of unspecified bronchus or lung (6) Atrial fibrillation with rapid ventricular response: Status: Acute (7) Physical deconditioning: Status: Acute (8) Anemia: Status: Acute Qualifiers: Anemia type: unspecified type Qualified Code(s): D64.9 - Anemia, unspecified (9) Nausea: Status: Acute Additional A&P Information 1. Acute hypoxic respiratory failure: Multifactorial related to COPD, pneumonia, stage IIIb squamous cell carcinoma, history of pulmonary embolism -Recently had a prolonged hospitalization when he was discharged to [facility]. Most discharged from LTAC on January 13 started having difficulty in breathing acutely a day prior to discharge. - This morning worsening respiratory failure -Currently on BiPAP, pulse 120, respiratory 19 -Broaden antibiotic coverage to vancomycin, Primaxin, azithromycin, IV Bactrim, added voriconazole for antifungal coverage -Increase Solu-Medrol to 60 mg every 8 hours -continue inhaler therapy -COVID-19 PCR negative -Urine Legionella and bacterial antigens negative -MRSA nares negative -Blood cultures negative so far -QuantiFERON, galactomannan, PCP -If patient has fevers, clinical deterioration will consider adding antifungals -Given Bactrim goes in 500 cc of fluid, will increase Lasix to 40 every 12 hours -Patient wants chest compression, defibrillation, ACLS medications, declines intubation Atrial fibrillation: Continue amiodarone 200 mg twice daily Continue metoprolol 25 3 times daily Anticoagulation with Eliquis. History of pulmonary embolism -the patient is on Eliquis for prophylaxis. Anxiety -continue with Xanax as needed. Home dose Zoloft. Constipation -milk of magnesia or senna for constipation. Prophylaxis -the patient is on Eliquis for prophylaxis. Dysphagia diet Eliquis will help with DVT prophylaxis also. 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
[2020-02-08] MEDS: vancomycin 1,000 MG in sodium chloride 0.9% 250 ML 250 MG IV (12:38)
[2020-02-08] MEDS: metoclopramide 5 mg/mL SDV 2 mL IVP ×2 (17:53→23:51)
[2020-02-08] MEDS: budesonide 0.5 mg/2 mL Neb INHALATION (19:53)
[2020-02-08] MEDS: ALPRAZolam 0.25 mg Tablet 0.125 MG PO (19:53)
[2020-02-08] MEDS: zolpidem 5 mg Tablet PO (22:13)
[2020-02-09] VITALS (32 sets, daily range): BP systolic 81–120; BP diastolic 54–74; PULSE 80–113; RESP 12–33; TEMP 36.7–36.8; O2SAT 83–99
[2020-02-09] MEDS: vancomycin 1,000 MG in sodium chloride 0.9% 250 ML 250 MG IV ×3 (00:07→23:55)
[2020-02-09] MEDS: levalbuterol 1.25 mg/3 mL Neb INHALATION ×4 (02:51→20:08)
[2020-02-09 03:59] LABS: Basophils # 0.1 10^3/uL (0.0-0.1); Basophils % 0.2 %; Hematocrit 35.6 % (42.0-52.0); Hemoglobin 11.4 g/dL (11.7-16.6); Lymphocytes # 1.1 10^3/uL (0.8-4.8); Lymphocytes % 4.4 %; Mean Corpuscular Hemoglobin 29.9 pg (28.0-34.0); Mean Corpuscular Volume 93.4 fL (80-94); Mean Platelet Volume 10.1 fL (7.4-10.4); Monocytes # 0.4 10^3/uL (0.2-0.9); Monocytes % 1.7 %; Neutrophils # 22.19 10^3/uL (1.8-7.7); Neutrophils % 90.4 %; Nucleated Red Blood Cells % 0 %; Platelet Count 292 10^3/cmm (130-400); Red Blood Count 3.81 10^6/uL (4.1-5.3); Red Cell Distribution Width 15.9 % (12.1-15.1); White Blood Count 24.6 10^3/uL (4.0-10.0)
[2020-02-09 04:10] LABS: INR 1.66 (0.8-1.2)
[2020-02-09 04:23] LABS: Lactic Sepsis W/Reflex 1.4 mmol/L (0.5-2.2)
[2020-02-09 04:26] LABS: Alanine Aminotransferase 32 U/L (0-41); Albumin Level 3.4 g/dL (3.5-5.2); Alkaline Phosphatase 148 IU/L (40-130); Anion Gap 12.6 (5-19); Aspartate Amino Transferase 17 U/L (0-40); Blood Urea Nitrogen 20 mg/dL (8-23); Calcium 8.9 mg/dL (8.5-10.5); Carbon Dioxide 34 mmol/L (22-29); Chloride 93 mmol/L (98-107); Globulin 2.1 g/dL (1.3-4.6); Glomerular Filtration Rate 111.5 mL/min (90-130); Glucose 122 mg/dL (65-115); Magnesium 2.3 mg/dL (1.7-2.3); Osmolality Calculated 286 mOsm/kg (285-295); Phosphorus 3.1 mg/dL (2.5-4.5); Potassium 3.6 mmol/L (3.5-5.1); Sodium 136 mmol/L (136-145); Total Bilirubin 0.2 mg/dL (0.15-1.2); Total Protein 5.5 g/dL (6.6-8.7)
[2020-02-09 04:28] LABS: NT Pro B Type Natriuretic Pept 753 pg/mL (0-125)
[2020-02-09 04:51] LABS: C Reactive Protein 41.6 mg/L (0.0-4.9)
[2020-02-09 04:58] LABS: NT Pro B Type Natriuretic Pept 701 pg/mL (0-125)
[2020-02-09 05:08] LABS: Creatine Phosphokinase 29 U/L (39-308)
[2020-02-09 06:01] LABS: ABG PCO2 43.5 mmHg (35-45); ABG PH Result 7.49 (7.35-7.45); Arterial Blood Gas Hematocrit 33.7 % (42-52); Base Excess ABG 8.8 mmol/L (-2.0-2.0); Blood Gas Operator Identificat JB; Blood Gas Sample Site Brachial, right; Blood Gas Sample Type Arterial; HCO3 ABG 33.1 mmol/L (22-26); Oxygen Device HAG; PO2 ABG 62.1 mmHg (80.0-100.0)
[2020-02-09] MEDS: sucralfate 1 gm/10 mL Oral Liq UDC PO ×4 (06:37→21:10)
[2020-02-09] MEDS: ALPRAZolam 0.25 mg Tablet 0.125 MG PO ×3 (06:42→21:11)
--- NOTE | 2020-02-09 07:00 | XR_ITS ---
WS: [id number] Exam: XR chest 1V portable [id number] Date/Time of Exam: 02/09/2020 7:00 AM Reason For Exam: sob Findings: Comparison 02/04/2020. Diffuse reticular nodular infiltrate throughout the left lung shows no change. Signs of partial right -sided pneumonectomy. Fibrous scarring at the right pulmonary hilum and pleural thickening. No pneumo thorax. Left subclavian port is noted and appears end at the cavoatrial junction. Heart size is zeina l. Hardware noted in the lower C-spine. XR/XR chest 1V portable [id number] IMPRESSION: 1. Reticular nodular infiltrates throughout the left lung showing no change. 2. Chronic right-sided pulmonary and pleural changes. 3. Left subclavian port remaining in good position.
[2020-02-09] MEDS: pantoprazole DR 40 mg Tablet PO (08:11)
[2020-02-09] MEDS: ferrous sulfate EC 325 mg Tablet PO ×2 (08:11→17:10)
[2020-02-09] MEDS: apixaban 5 mg Tablet PO ×2 (08:12→21:11)
[2020-02-09] MEDS: multivitamin therapeutic Tablet 1 TAB PO (08:12)
[2020-02-09] MEDS: sertraline 100 mg Tablet PO (08:13)
[2020-02-09] MEDS: benzonatate 100 mg Capsule PO ×3 (08:13→21:11)
[2020-02-09] MEDS: metoclopramide 5 mg/mL SDV 2 mL IVP ×3 (08:13→23:56)
[2020-02-09] MEDS: amiodarone 200 mg Tablet PO ×2 (08:13→21:11)
[2020-02-09] MEDS: guaiFENesin 600 mg Tablet 1200 MG PO ×2 (08:13→17:10)
[2020-02-09] MEDS: metoprolol tartrate 50 mg Tablet PO ×2 (08:13→17:10)
[2020-02-09] MEDS: oxyCODONE-APAP 5-325 mg Tablet PO ×3 (08:15→19:34)
--- NOTE | 2020-02-09 08:31 | P.PN_ITS ---
Subjective Subjective: Interval history: The patient is feeling a little better in terms of breathing compared to yesterday. He denies any chest pains. He denies any significant cough. The patient continues to have some diarrhea however no abdominal pain. The patient was able to eat his breakfast this morning. Vitals/I&O/Wt Last Vital Signs Temp 97.8 F 02/08/20 19:00 Pulse 87 02/09/20 06:35 Resp 22 H 02/09/20 08:15 BP 115/74 02/09/20 06:00 Pulse Ox 92 02/09/20 08:15 02/08/20 02/09/20 02/09/20 22:59 06:59 14:59 Intake Total 300 / 1095.833 365.625 / 1461.458 865.625 / 865.625 Output Total 2150 / 3400 525 / 3925 Balance -1850 / -2304.167 -159.375 / -2463.542 865.625 / 865.625 Physical Exam Narrative: EXAM NARRATIVE: General: Alert and oriented x3 Neck: No masses appreciated Heart: Tachycardia with irregular rate. No murmurs. Lungs: Patient is currently on high flow nasal oxygen. Mild diffuse wheezes. Significant tachypnea present. Diffuse rhonchi. Decreased air entry on the right lower lung. Abdomen: No significant hepatosplenomegaly. No significant pain. Extremities: No edema. Data : 02/09/20 03:18 02/09/20 03:18 A&P Additional A&P Information 1. Hypoxia with respiratory failure -the patient continues to have significant hypoxia, however this is improved and he is down to 55% FiO2 on high flow nasal cannula oxygen. He has been off and on BiPAP over the weekend. The patient is currently a full code. He told me that he changed his mind today regarding intubation and that if it was necessary that he would be okay with this. He asked me to change this in the chart. I feel that his prognosis is quite poor long-term. I discussed with him that getting him off the ventilator may be exceedingly difficult and that it should be avoided if possible. Continue with Lasix therapy for likely fluid overload as well as antibiotics. I appreciate Dr. Monahan's recommendations and continued management. They have sent off for fungal and viral panels. 2. Metastatic lung cancer -the patient has metastatic lung cancer in both lungs and received chemo and radiation treatment in October. The patient sees Dr. Sibley for oncology. The patient saw Dr. Sibley earlier this week and he recommended no further chemotherapy until his lungs are improved. I am not sure that the patient's lungs will improve significantly enough to be able to receive chemotherapy. I spoke with the patient on 02/03/2020 and he continues to want everything done. He also would like to have resuscitation if his heart were to stop. I had a katie discussion with him that our chances of being able to bring him back successfully would be low, however he stated that he still wants everything done possible. 3. Pneumonia -the patient is currently on Bactrim and imipenem. Vancomycin, azithromycin and voriconazole were added over the weekend. Chest x-ray by my read today appears relatively unchanged. Viral and fungal cultures are pending. We will treat depending on results. 4. History of pulmonary embolism -the patient is on Eliquis for prophylaxis. 5. Anxiety -continue with Xanax as needed. 6. Constipation -resolved 7. Atrial flutter with RVR -Dr. Angela has evaluated the patient and he is currently on digoxin, amiodarone and metoprolol. He is now in sinus rhythm with a heart rate in the 90s. 8. Diarrhea -the patient has diarrhea and this may be secondary to current medications. C. difficile was negative. 9. Prophylaxis -the patient is on Eliquis for prophylaxis. Attestations Medical Necessity Statement*: Patient continues to need ICU care secondary to significant hypoxia. His stay will continue to cross 2 midnights. 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
[2020-02-09] MEDS: budesonide 0.5 mg/2 mL Neb INHALATION ×2 (08:46→20:08)
[2020-02-09] MEDS: FUROsemide 10 mg/mL SDV 4mL 40 MG IVP (09:13)
--- NOTE | 2020-02-09 09:36 | PC.CHAP ---
Pastoral Care Encounter/Spiritual Assessment Type of Contact [] Declined home school coordinator visit [] Patient/Family/Request visit [] Outpatient visit [] Follow-up visit [] Physician referral [] Code/Alert [] Routine visit [] Staff referral [] Actively dying [] Patient sleeping [] Family support [] [] Out of room [] Palliative care [] [] Receiving care in room [] Pre-surgical visit [] Trauma [] Long length of stay [] ICU visit [] Other: Relational/Emotional Strength [] Patient feels connected with others/family/visitors/staff [] Distress [] Loneliness/isolation [] Abandonment Spirituality of Patient [] Person of Maru [] Attends Rastafarian of their Maru [] Believes in Prayer [] Reads Bible or Gnosticist materials [] There are Spiritual issues to be addressed Bowling Ball Grader And Marker Interventions [x] Prayer [] Active listening [] Non-anxious presence [] Spiritual/emotional support [] Crisis/trauma care [] Spiritual counseling [] Bereavement support [] Provided bereavement packet [] Provided Bible/devotional materials [] Provided toy/stuffed animal, coloring book to patient or family member [] Provided Communion [] Anointing/[place] [] Salvation [x] Completed spiritual assessment [] Other: Impact on Illness or Injury [] Angry [] Fearful [] Anxious [] Often cries [] Exhaustion [] Unable to work [] Unable to attend presybeterian [] Unable to walk/stand [] Unable to read [] Unable to drive [] Unable to eat/drink [] Unable to sleep [] Unable to be with family [] Patient intubated [] Other: Summary patient received prayer from the [address].... Time spent with patient
[2020-02-09] MEDS: azithromycin 500 MG in sodium chloride 0.9% 250 ML 250 MG IV (09:53)
--- NOTE | 2020-02-09 11:54 | P.PN_ITS ---
Subjective Subjective: Interval history: Over weekend patient respiratory status worsened and required high flow oxygen this time and was transferred to ICU for impending respiratory failure. Yesterday patient did not want intubation but he changed his mind today and wanted full code. Today morning patient is on 50 L and 55% FiO2 maintaining saturation 94%. Requirements have come down since yesterday but patient is still in moderate distress. Very poor prognosis patient understands that and still wants full code. Added vancomycin, azithromycin, voriconazole over the weekend. Medications: Reviewed: Yes Medication Review Details: Current Medications Alprazolam (Xanax) 0.5 mg PO BID PRN PRN Reason: ANXIETY Last Admin: 02/05/20 21:09 Dose: 0.5 mg Documented by: Amiodarone HCl (Cordarone) 400 mg PO Q12H [facility] Last Admin: 02/06/20 09:19 Dose: 400 mg Documented by: Apixaban (Eliquis) 5 mg PO Q12H [facility] Last Admin: 02/06/20 09:20 Dose: 5 mg Documented by: Benzonatate (Tessalon Pearls) 100 mg PO TID [facility] Last Admin: 02/06/20 09:19 Dose: 100 mg Documented by: Budesonide (Pulmicort) 0.5 mg INHALATION BID [facility] Last Admin: 01/31/20 19:49 Dose: 0.5 mg Documented by: Digoxin (Lanoxin) 125 mcg PO DAILY [facility] Last Admin: 02/06/20 09:19 Dose: 125 mcg Documented by: Ferrous Sulfate (Ferrous Sulfate) 325 mg PO BID [facility] Last Admin: 02/06/20 09:20 Dose: 325 mg Documented by: Guaifenesin (Mucinex) 1,200 mg PO BID [facility] Last Admin: 02/06/20 09:19 Dose: 1,200 mg Documented by: Amiodarone HCl 900 mg/Dextrose/ IV Miscellaneous Supplies 518 mls @ 0 mls/hr IV .Q0M [facility]; Protocol Last Titration: 02/04/20 01:10 Dose: 0 mg/min, 0 mls/hr Documented by: Imipenem/Cilastatin Sodium 250 (mg/ Sodium Chloride) 100 mls @ 200 mls/hr IV Q6H [facility]; Protocol Last Admin: 02/06/20 12:38 Dose: 100 mls/hr Documented by: Ipratropium [place] (Atrovent Neb) 0.5 mg INHALATION Q6H.RESPIRATORY [facility] Last Admin: 02/06/20 08:47 Dose: 0.5 mg Documented by: Levalbuterol HCl (Xopenex) 1.25 mg INHALATION Q6H.RESPIRATORY [facility] Last Admin: 02/06/20 08:46 Dose: 1.25 mg Documented by: Magnesium Hydroxide (Milk Of Magnesia) 30 ml PO DAILY PRN PRN Reason: Constipation Methylprednisolone Sodium Succinate (Solu-Medrol) 60 mg IVP Q8H [facility] Last Admin: 02/06/20 05:16 Dose: 60 mg Documented by: Metoclopramide HCl (Reglan) 5 mg IVP Q8H [facility] Last Admin: 02/02/20 18:40 Dose: 5 mg Documented by: Metoprolol Tartrate (Lopressor) 25 mg PO TID [facility] Last Admin: 02/06/20 09:19 Dose: 25 mg Documented by: Metoprolol Tartrate (Metoprolol Tartrate) 5 mg IV Q4H PRN PRN Reason: tachycardia for HR>120 Multivitamins Therapeutic (Multivitamin Tab) 1 tab PO DAILY [facility] Last Admin: 02/02/20 07:56 Dose: 1 tab Documented by: Ondansetron HCl (Zofran) 8 mg PO Q8H PRN PRN Reason: Nausea Oxycodone/Acetaminophen (Percocet 5-325 Mg) 1 - 2 tab PO Q4H PRN PRN Reason: Moderate To Severe Pain Last Admin: 02/05/20 20:26 Dose: 1 tab Documented by: Pantoprazole Sodium (Protonix) 40 mg PO DAILY [facility] Last Admin: 02/06/20 09:19 Dose: 40 mg Documented by: Fluticasone/Salmeterol (Advair Diskus 500-50) 1 puff INHALATION BID.RESPIRATORY [facility] Last Admin: 02/02/20 20:39 Dose: Not Given Documented by: Senna/Docusate Sodium (Senna-S) 1 tab PO BID PRN PRN Reason: Constipation Sertraline HCl (Zoloft) 100 mg PO DAILY [facility] Last Admin: 02/06/20 09:20 Dose: 100 mg Documented by: Sucralfate (Carafate Oral Liq) 1 gm PO AC&BEDTIME [facility] Last Admin: 02/06/20 10:49 Dose: 1 gm Documented by: Tamsulosin HCl (Flomax) 0.4 mg PO BEDTIME [facility] Last Admin: 02/05/20 20:26 Dose: 0.4 mg Documented by: Tiotropium [place] (Spiriva) 18 mcg INHALATION DAILY.RESPIRATORY [facility] Last Admin: 02/06/20 08:46 Dose: Not Given Documented by: Zolpidem Tartrate (Ambien) 5 mg PO BEDTIME PRN PRN Reason: SLEEP Last Admin: 02/05/20 21:02 Dose: 5 mg Documented by: Vitals/I&O/Wt Last Vital Signs Temp 98.1 F 02/09/20 08:00 Pulse 106 H 02/09/20 11:00 Resp 27 H 02/09/20 11:00 BP 93/54 02/09/20 11:00 Pulse Ox 94 02/09/20 11:00 02/08/20 02/09/20 02/09/20 22:59 06:59 14:59 Intake Total 300 / 1095.833 365.625 / 8036.318 7029.625 / 1215.625 Output Total 2150 / 3400 525 / 3925 Balance -1850 / -2304.167 -159.375 / -2463.542 1215.625 / 1215.625 Physical Exam Narrative: EXAM NARRATIVE: General: alert, in moderate respiratory distress HEENT: conj clear, EOMI, PERRL, mmm, Neck: supple, no meningismus Heme: no cervical LAP Pulmonary: Bilateral expiratory rhonchi and end expiratory wheeze Cardiovascular: rrr, nl s1s2, no mrg Abdomen: soft, nt, nd, no r/g, bs+ Extremities: pulses +, no edema, no c/c : no CVA tenderness Skin: intact, no rash MSK: no back or neck pain Neurologic: grossly intact Data : 02/09/20 03:18 02/09/20 03:18 A&P Assessment and plan (1) Respiratory failure with hypoxia: Status: Acute Qualifiers: Chronicity: acute on chronic Qualified Code(s): J96.21 - Acute and chronic respiratory failure with hypoxia (2) Atrial flutter with rapid ventricular response: Status: Acute (3) Pneumonitis: Status: Acute (4) Pneumonia: Status: Acute Qualifiers: Laterality: left Lung location: lower lobe of lung Pneumonia type: due to unspecified organism Qualified Code(s): J18.9 - Pneumonia, unspecified organism (5) Squamous cell carcinoma of lung, stage III: Status: Acute Qualifiers: Laterality: right Qualified Code(s): C34.91 - Malignant neoplasm of unspecified part of right bronchus or lung (6) Centrilobular emphysema: Status: Acute #Acute hypoxic respiratory failure likely due to COPD exacerbated by pneumonia in patient with stage IIIb squamous cell lung carcinoma -Currently saturating more than 9 4 % on High flow 50 L 55% -ABG today on 50% FiO2 7.4 //30 3/99% -CT chest on admission ruled out PE, but showed heterogeneous consolidation in right upper lobe similar to prior CT in November, air-fluid levels in consolidated areas representing necrosis or infection. Multifocal bilateral pulmonary infiltrates and groundglass opacities worsened. -COVID-19 PCR negative, urine Legionella and bacterial antigens negative, MRSA nares negative, blood cultures so far negative; - TB QuantiFERON negative, -On IV Solu-Medrol and scheduled nebulizations with Xopenex and Atrovent for COPD -At this point patient has A. fib RVR and is on Eliquis and amiodarone/digoxin -not ideal to do bronchoscopy and biopsy -Meanwhile will treat for underlying possible bacterial/fungal pneumonia -Agree with antibiotic coverage vancomycin, imipenem, Bactrim, voriconazole, -Can discontinue azithromycin -RVP, Fungitell, galactomannan, induced sputum for PCP pending; - -Elevated BNP and last echo October 2019 reported as possibly normal LV size and ejection fraction with possible stenotic aortic valve -Repeat echo to evaluate for LV function and status of aortic stenosis - Hold on Lasix as pt. is developing metabolic alkalosis -Received chemoradiation on October 06, 2019 with weekly carboplatin/Taxol and completed radiation therapy on November 19, 2019. He could not get recommended weekly carboplatin/Taxol because of on and off sickness. Last dose of weekly carboplatin/Taxol was given on November 13, 2019. -In the context of recent radiation-cannot rule out underlying radiation pneumonitis-however patient is already covered with steroids If pt respirotory status worsens, patient would want to go for intubation harjinder pite of knowing that it will be difficult to extubate due to underlying malignancy and radiation pneumonitis. Medical condition, labs, investigations, medications, plan of care including CODE STATUS-everything explained in detail to the patient. He verbalized understanding and agreed with the plan of care. Overall patient prognosis is very poor. Recommendations conveyed to Dr. Spain-hospitalist covering the patient Attestations Medical Necessity Statement*: Acute hypoxic respiratory failure requiring high flow oxygen secondary to underlying lung cancer and radiation pneumonitis Time Spent in Patient Care: 16 - 35 minutes (>than 50% of time spent in counselling and/or direct pt care on unit) . 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
[2020-02-09 12:29] LABS: Vancomycin Trough 10.5 ug/mL (10-15)
--- NOTE | 2020-02-09 19:15 | PC.NURSE ---
Patient's pain medication has . Contacted Dr. Spain who gave order to renew previous order of Percocet 5/325 1-2 tabs PO q4 hours prn.
[2020-02-09] MEDS: zolpidem 5 mg Tablet PO (21:10)
[2020-02-10] VITALS (43 sets, daily range): BP systolic 84–162; BP diastolic 57–99; PULSE 80–122; RESP 9–88; TEMP 36.7–37; O2SAT 84–95
--- NOTE | 2020-02-10 00:30 | PC.NURSE ---
Patient continuing to desat on high flow. Encouraged patient to allow Bipap to be used. Patient agreed to Bipap. O2 sat maintaining at 90-92%
[2020-02-10] MEDS: levalbuterol 1.25 mg/3 mL Neb INHALATION ×4 (02:16→20:05)
--- NOTE | 2020-02-10 02:29 | PC.NURSE ---
Patient is refusing Bipap mask stating it is pinching off my nose . RT switched back to High flow. Patient continuing to de-sat. Dr. Simons notified. Dr. Simons ordered one time dose of ativan 1 mg IVP to be given now.
[2020-02-10] MEDS: LORazepam 2 mg/mL INJ 1 mL 1 MG IVP (02:35)
[2020-02-10 03:50] LABS: Basophils # 0.1 10^3/uL (0.0-0.1); Basophils % 0.2 %; Hematocrit 34.1 % (42.0-52.0); Hemoglobin 10.7 g/dL (11.7-16.6); Lymphocytes # 0.5 10^3/uL (0.8-4.8); Lymphocytes % 1.2 %; Mean Corpuscular HGB Conc 31.4 g/dL (30.0-36.0); Mean Corpuscular Hemoglobin 29.6 pg (28.0-34.0); Mean Corpuscular Volume 94.2 fL (80-94); Mean Platelet Volume 10.1 fL (7.4-10.4); Monocytes % 4.6 %; Neutrophils # 39.94 10^3/uL (1.8-7.7); Neutrophils % 90.5 %; Nucleated Red Blood Cells % 0 %; Platelet Count 332 10^3/cmm (130-400); Red Blood Count 3.62 10^6/uL (4.1-5.3); Red Cell Distribution Width 16.3 % (12.1-15.1)
[2020-02-10 03:54] LABS: White Blood Count 44.1 10^3/uL (4.0-10.0)
[2020-02-10 04:01] LABS: INR 1.65 (0.8-1.2)
--- NOTE | 2020-02-10 04:06 | PC.NURSE ---
Patient has had minimal (100 mL) urine output for shift to this point - 0400. When asked if he needs to urinate he responds that he does not at this time. Patient is alert and oriented and using his urinal appropriately. Dr. Simons notified. No new orders. Will continue to monitor.
[2020-02-10 04:10] LABS: Lactic Sepsis W/Reflex 2.1 mmol/L (0.5-2.2)
[2020-02-10 04:19] LABS: Alanine Aminotransferase 28 U/L (0-41); Albumin Level 3.4 g/dL (3.5-5.2); Alkaline Phosphatase 167 IU/L (40-130); Anion Gap 9.2 (5-19); Aspartate Amino Transferase 25 U/L (0-40); Blood Urea Nitrogen 23 mg/dL (8-23); Calcium 9.2 mg/dL (8.5-10.5); Carbon Dioxide 35 mmol/L (22-29); Chloride 95 mmol/L (98-107); Globulin 2.4 g/dL (1.3-4.6); Glomerular Filtration Rate 111.5 mL/min (90-130); Glucose 130 mg/dL (65-115); Magnesium 2.3 mg/dL (1.7-2.3); Osmolality Calculated 285 mOsm/kg (285-295); Phosphorus 3.1 mg/dL (2.5-4.5); Potassium 4.2 mmol/L (3.5-5.1); Sodium 135 mmol/L (136-145); Total Bilirubin 0.2 mg/dL (0.15-1.2); Total Protein 5.8 g/dL (6.6-8.7)
[2020-02-10 04:25] LABS: C Reactive Protein 24.3 mg/L (0.0-4.9)
[2020-02-10 04:32] LABS: NT Pro B Type Natriuretic Pept 708 pg/mL (0-125)
[2020-02-10 04:35] LABS: NT Pro B Type Natriuretic Pept 727 pg/mL (0-125); Procalcitonin 0.17 ng/mL (0-0.5)
[2020-02-10 04:46] LABS: Creatine Phosphokinase 46 U/L (39-308)
[2020-02-10] MEDS: oxyCODONE-APAP 5-325 mg Tablet PO ×3 (05:12→19:53)
[2020-02-10] MEDS: ALPRAZolam 0.25 mg Tablet 0.125 MG PO ×3 (05:13→21:56)
[2020-02-10 05:29] LABS: Reflex Lactate Order REFLEX LACTIC ORDERD
--- NOTE | 2020-02-10 05:33 | XR_ITS ---
WS: [id number] Exam: XR chest 1V portable [id number] Date/Time of Exam: 02/10/2020 5:44 AM Reason For Exam: SOB, hypoxia Findings: Comparison 02/09/2020. Diffuse infiltrate in the left lung is unchanged. Chronic pulmonary changes in the right lung. Pleura l thickening in the right pulmonary apex. Chronic elevation of the right diaphragm. The cardiomediast inal structures are unremarkable. Left-sided subclavian port ends at the cavoatrial junction unchange d. XR/XR chest 1V portable [id number] IMPRESSION: 1. Left-sided pulmonary infiltrates unchanged.
--- NOTE | 2020-02-10 05:34 | ECG_ITS ---
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1950 Requested By: Silverio Lau Order Number: [id number] Reading MD: Measurements Intervals [place] Rate: 97 P: 53 NH: 158 QRS: -26 QRSD: 84 T: 64 QT: 352 QTc: 448 Interpretive Statements SINUS RHYTHM POSSIBLE LEFT ATRIAL ENLARGEMENT [-0.1mV P WAVE IN V1/V2] BORDERLINE LEFT AXIS DEVIATION [QRS AXIS < -20] POSSIBLE RIGHT VENTRICULAR CONDUCTION DELAY [RSR (QR) IN V1/V2] NONSPECIFIC ST & T-WAVE ABNORMALITY Compared to ECG 02/02/2020 19:08:42 Atrial flutter no longer present T-wave abnormality still present [id number]
[2020-02-10] MEDS: FUROsemide 10 mg/mL SDV 4mL 40 MG IVP (05:49)
--- NOTE | 2020-02-10 06:03 | PC.NURSE ---
0500 Patient continuing to be in distress. Oxygen saturation 80-84%. Patient switched back to high-flow. Oxygen saturation maintaining at 90-92% on high-flow. Patient continuing to appear in distress- breathing rapidly and diaphoretic. Dr. Simons notified and agreed to come assess patient. Dr. Spain notified and ordered Lasix 40 mg IV, EKG series, Chest x-ray, and Troponin series. 0530 Dr. Simons at bedside. Discussed with patient possibility of intubation. Dr. Simons called Dr. Spain and it was decided to hold-off on intubation at this point. Will give Lasix and perform EKG/Troponin series and Chest x-ray. Will continue to monitor at this time.
[2020-02-10 06:25] LABS: Troponin(5th) Baseline 16 ng/L (0-15)
--- NOTE | 2020-02-10 06:33 | PC.NURSE ---
Dr. Spain at bedside. Patient resting more comfortably now. No new orders at this time given. Will continue to monitor.
--- NOTE | 2020-02-10 06:36 | P.PN_ITS ---
Subjective Subjective: Interval history: I was called to see the patient urgently secondary to significant worsening in respiratory status. He was becoming quite tachypneic and they were having difficulties keeping his oxygen levels above 90%. The patient was switched to BiPAP and the patient did not tolerate it well. The patient was placed back on high flow nasal cannula oxygen and a chest x-ray was done, he was given Lasix, labs were done and he was given Percocet and Xanax. With these treatments the patient is now resting in bed. His oxygen levels are now in the 93% range on high flow nasal cannula oxygen at 75% FiO2. Vitals/I&O/Wt Last Vital Signs Temp 98.1 F 02/09/20 19:00 Pulse 105 H 02/10/20 06:00 Resp 25 H 02/10/20 06:00 BP 118/62 02/10/20 06:00 Pulse Ox 84 L 02/10/20 06:00 02/09/20 02/09/20 02/10/20 14:59 22:59 06:59 Intake Total 1812.625 / 1812.625 815.625 / 2628.250 365.625 / 2993.875 Output Total 300 / 300 175 / 475 Balance 1512.625 / 1512.625 640.625 / 2153.250 365.625 / 2518.875 Physical Exam Narrative: EXAM NARRATIVE: General: Resting in bed and breathing more easily. Responding to stimuli. Neck: No masses appreciated Heart: Tachycardia with regular rate. No murmurs. Lungs: Patient is currently on high flow nasal oxygen. Moderate diffuse wheezes. Breathing is now slower and approximately 15 times per minute. Diffuse rhonchi. Decreased air entry on the right lower lung. Abdomen: No significant hepatosplenomegaly. No significant pain. No rebound tenderness noted. Extremities: No edema. Data : 02/10/20 03:30 02/10/20 03:30 A&P Additional A&P Information 1. Hypoxia with respiratory failure -the patient continues to have significant was difficult to treat overnight, however with a low-dose of Xanax and Percocet for pain with a dose of IV Lasix, the patient's breathing is better and he is now saturating in the 93% range with a slow respiratory rate. He has been off and on BiPAP over the weekend and he did not tolerate it overnight. The patient is currently a full code. He told me that he changed his mind on 02/09/2020 regarding intubation and that if it was necessary that he would be okay with this. He asked me to change this in the chart. I feel that his prognosis is quite poor long-term. I discussed with him that getting him off the ventilator may be exceedingly difficult and that it should be avoided if possible. I appreciate Dr. Monahan's recommendations and continued management. He has sent off for fungal and viral panels. 2. Metastatic lung cancer -the patient has metastatic lung cancer in both lungs and received chemo and radiation treatment in October. The patient sees Dr. Sibley for oncology. The patient saw Dr. Sibley in mid January and he recommended no further chemotherapy until his lungs are improved. I am not sure that the patient's lungs will improve significantly enough to be able to receive chemotherapy. I spoke with the patient on 02/03/2020 and he continues to want everything done. He also would like to have resuscitation if his heart were to stop. I had a katie discussion with him that our chances of being able to bring him back successfully would be low, however he stated that he still wants everything done possible. 3. Pneumonia -the patient is currently on Bactrim, imipenem, Vancomycin and voriconazole. Chest x-ray appears to be relatively unchanged. Viral and fungal cultures are pending. I am quite concerned that the patient's white blood cell count has significantly jumped to 44 since yesterday. The assumption would be that the infection is coming from his lungs, however I cannot rule out another source like a GI source. The patient currently denies any pain. He had diarrhea with a negative C. difficile over the weekend, however his loose stools have now stopped. If he begins having more pain in the abdomen, we will need to evaluate this further. I will get blood cultures secondary to the increasing white blood cell count and follow. I am not sure that he will tolerate having a CT scan right now as any movement even just to use the urinal will cause him to desaturate. I may start with an acute abdominal series if needed. 4. History of pulmonary embolism -the patient is on Eliquis for prophylaxis. 5. Anxiety -continue with Xanax as needed. We will increase the frequency to every 6 hours as it seems to have helped with his breathing overnight. 6. Constipation -resolved 7. Atrial flutter with RVR -Dr. Angela has evaluated the patient and he is currently on digoxin, amiodarone and metoprolol. He is now in sinus rhythm with a heart rate in the 90s. 8. Diarrhea -the patient had diarrhea and this may have been secondary to current medications. C. difficile was negative. He has not had a bowel movemen t in a couple of days. We will need to follow this. 9. Prophylaxis -the patient is on Eliquis for prophylaxis. Attestations Medical Necessity Statement*: The patient continues need inpatient care and care in the ICU as he is critically ill. 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
[2020-02-10] MEDS: sucralfate 1 gm/10 mL Oral Liq UDC PO ×4 (07:26→21:55)
[2020-02-10 07:31] LABS: Lactic Acid level (Lactate) 2.5 mmol/L (0.5-2.2)
[2020-02-10 07:33] LABS: Digoxin 0.6 ng/mL (0.6-1.2); Troponin 5 2HR 16.54 ng/L (0-15); Troponin 5 2HR Delta 0.54 ABS# (0-10)
--- NOTE | 2020-02-10 07:34 | ECG_ITS ---
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1950 Requested By: Silverio Lau Order Number: [id number] Reading MD: Measurements Intervals [place] Rate: 95 P: 45 CT: 160 QRS: -28 QRSD: 84 T: 66 QT: 352 QTc: 444 Interpretive Statements SINUS RHYTHM LEFT ATRIAL ENLARGEMENT [-0.15mV P WAVE IN V1/V2] BORDERLINE LEFT AXIS DEVIATION [QRS AXIS < -20] S1-S2-S3 PATTERN, CONSISTENT WITH PULMONARY DISEASE, RVH, OR NORMAL VARIANT POSSIBLE RIGHT VENTRICULAR CONDUCTION DELAY [RSR (QR) IN V1/V2] NONSPECIFIC ST & T-WAVE ABNORMALITY Compared to ECG 02/10/2020 05:41:05 Right ventricular hypertrophy now present T-wave abnormality still present [id number]
[2020-02-10] MEDS: budesonide 0.5 mg/2 mL Neb INHALATION ×2 (08:00→20:06)
[2020-02-10] MEDS: sertraline 100 mg Tablet PO (08:44)
[2020-02-10] MEDS: ferrous sulfate EC 325 mg Tablet PO ×2 (08:44→18:16)
[2020-02-10] MEDS: metoprolol tartrate 50 mg Tablet PO ×2 (08:44→18:16)
[2020-02-10] MEDS: pantoprazole DR 40 mg Tablet PO (08:44)
[2020-02-10] MEDS: amiodarone 200 mg Tablet PO ×2 (08:44→21:55)
[2020-02-10] MEDS: multivitamin therapeutic Tablet 1 TAB PO (08:44)
[2020-02-10] MEDS: apixaban 5 mg Tablet PO ×2 (08:44→21:56)
[2020-02-10] MEDS: metoclopramide 5 mg/mL SDV 2 mL IVP ×2 (08:45→15:40)
[2020-02-10] MEDS: benzonatate 100 mg Capsule PO ×3 (08:45→19:55)
[2020-02-10] MEDS: guaiFENesin 600 mg Tablet 1200 MG PO ×2 (08:45→18:16)
--- NOTE | 2020-02-10 09:10 | PC.CHAP ---
Pastoral Care Encounter/Spiritual Assessment Type of Contact [] Declined production line operator visit [] Patient/Family/Request visit [] Outpatient visit [] Follow-up visit [] Physician referral [] Code/Alert [] Routine visit [] Staff referral [] Actively dying [] Patient sleeping [] Family support [] [] Out of room [] Palliative care [] [] Receiving care in room [] Pre-surgical visit [] Trauma [] Long length of stay [] ICU visit [x] Other: resting Relational/Emotional Strength [] Patient feels connected with others/family/visitors/staff [] Distress [] Loneliness/isolation [] Abandonment Spirituality of Patient [] Person of Maru [] Attends Protestant of their Maru [] Believes in Prayer [] Reads Bible or Anabaptism materials [] There are Spiritual issues to be addressed Supervisor Pigment Making Interventions [x] Prayer [] Active listening [] Non-anxious presence [] Spiritual/emotional support [] Crisis/trauma care [] Spiritual counseling [] Bereavement support [] Provided bereavement packet [] Provided Bible/devotional materials [] Provided toy/stuffed animal, coloring book to patient or family member [] Provided Communion [] Anointing/[place] [] Salvation [x] Completed spiritual assessment [] Other: Impact on Illness or Injury [] Angry [] Fearful [] Anxious [] Often cries [] Exhaustion [] Unable to work [] Unable to attend latter-day [] Unable to walk/stand [] Unable to read [] Unable to drive [] Unable to eat/drink [] Unable to sleep [] Unable to be with family [] Patient intubated [] Other: Summary Time spent with patient
--- NOTE | 2020-02-10 11:34 | ECG_ITS ---
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
[2020-02-10] MEDS: vancomycin 1,000 MG in sodium chloride 0.9% 250 ML 250 MG IV (12:23)
--- NOTE | 2020-02-10 12:37 | PC.SOCIAL ---
IMM Update Pg.2 of IMM updated. Initialed, dated, and timed and placed in patient's chart. Copy provided to patient.
--- NOTE | 2020-02-10 17:58 | PM.PN ---
Subjective Subjective: Interval history: Patient is requiring higher FiO2. Currently placed on BiPAP 01/19 to 80% FiO2 saturating 94%. Today's labs revealed worsening leukocytosis 44K and lactic acid 2.5 Blood cultures sent Currently covered with vancomycin, imipenem, voriconazole, Bactrim Urine output 1000 mL since a.m. Patient is requiring Xanax for anxiety and Percocet for pain after receiving these medications he seems less distressed BiPAP Medications: Reviewed: Yes Medication Review Details: Current Medications Alprazolam (Xanax) 0.5 mg PO BID PRN PRN Reason: ANXIETY Last Admin: 02/05/20 21:09 Dose: 0.5 mg Documented by: Amiodarone HCl (Cordarone) 400 mg PO Q12H [facility] Last Admin: 02/06/20 09:19 Dose: 400 mg Documented by: Apixaban (Eliquis) 5 mg PO Q12H [facility] Last Admin: 02/06/20 09:20 Dose: 5 mg Documented by: Benzonatate (Tessalon Pearls) 100 mg PO TID [facility] Last Admin: 02/06/20 09:19 Dose: 100 mg Documented by: Budesonide (Pulmicort) 0.5 mg INHALATION BID [facility] Last Admin: 01/31/20 19:49 Dose: 0.5 mg Documented by: Digoxin (Lanoxin) 125 mcg PO DAILY [facility] Last Admin: 02/06/20 09:19 Dose: 125 mcg Documented by: Ferrous Sulfate (Ferrous Sulfate) 325 mg PO BID [facility] Last Admin: 02/06/20 09:20 Dose: 325 mg Documented by: Guaifenesin (Mucinex) 1,200 mg PO BID [facility] Last Admin: 02/06/20 09:19 Dose: 1,200 mg Documented by: Amiodarone HCl 900 mg/Dextrose/ IV Miscellaneous Supplies 518 mls @ 0 mls/hr IV .Q0M [facility]; Protocol Last Titration: 02/04/20 01:10 Dose: 0 mg/min, 0 mls/hr Documented by: Imipenem/Cilastatin Sodium 250 (mg/ Sodium Chloride) 100 mls @ 200 mls/hr IV Q6H [facility]; Protocol Last Admin: 02/06/20 12:38 Dose: 100 mls/hr Documented by: Ipratropium [place] (Atrovent Neb) 0.5 mg INHALATION Q6H.RESPIRATORY VIKY Last Admin: 02/06/20 08:47 Dose: 0.5 mg Documented by: Levalbuterol HCl (Xopenex) 1.25 mg INHALATION Q6H.RESPIRATORY [facility] Last Admin: 02/06/20 08:46 Dose: 1.25 mg Documented by: Magnesium Hydroxide (Milk Of Magnesia) 30 ml PO DAILY PRN PRN Reason: Constipation Methylprednisolone Sodium Succinate (Solu-Medrol) 60 mg IVP Q8H [facility] Last Admin: 02/06/20 05:16 Dose: 60 mg Documented by: Metoclopramide HCl (Reglan) 5 mg IVP Q8H [facility] Last Admin: 02/02/20 18:40 Dose: 5 mg Documented by: Metoprolol Tartrate (Lopressor) 25 mg PO TID [facility] Last Admin: 02/06/20 09:19 Dose: 25 mg Documented by: Metoprolol Tartrate (Metoprolol Tartrate) 5 mg IV Q4H PRN PRN Reason: tachycardia for HR>120 Multivitamins Therapeutic (Multivitamin Tab) 1 tab PO DAILY [facility] Last Admin: 02/02/20 07:56 Dose: 1 tab Documented by: Ondansetron HCl (Zofran) 8 mg PO Q8H PRN PRN Reason: Nausea Oxycodone/Acetaminophen (Percocet 5-325 Mg) 1 - 2 tab PO Q4H PRN PRN Reason: Moderate To Severe Pain Last Admin: 02/05/20 20:26 Dose: 1 tab Documented by: Pantoprazole Sodium (Protonix) 40 mg PO DAILY [facility] Last Admin: 02/06/20 09:19 Dose: 40 mg Documented by: Fluticasone/Salmeterol (Advair Diskus 500-50) 1 puff INHALATION BID.RESPIRATORY [facility] Last Admin: 02/02/20 20:39 Dose: Not Given Documented by: Senna/Docusate Sodium (Senna-S) 1 tab PO BID PRN PRN Reason: Constipation Sertraline HCl (Zoloft) 100 mg PO DAILY [facility] Last Admin: 02/06/20 09:20 Dose: 100 mg Documented by: Sucralfate (Carafate Oral Liq) 1 gm PO AC&BEDTIME [facility] Last Admin: 02/06/20 10:49 Dose: 1 gm Documented by: Tamsulosin HCl (Flomax) 0.4 mg PO BEDTIME VIKY Last Admin: 02/05/20 20:26 Dose: 0.4 mg Documented by: Tiotropium [place] (Spiriva) 18 mcg INHALATION DAILY.RESPIRATORY VIKY Last Admin: 02/06/20 08:46 Dose: Not Given Documented by: Zolpidem Tartrate (Ambien) 5 mg PO BEDTIME PRN PRN Reason: SLEEP Last Admin: 02/05/20 21:02 Dose: 5 mg Documented by: Vitals/I&O/Wt Last Vital Signs Temp 98.1 F 02/10/20 15:00 Pulse 121 H 02/10/20 16:41 Resp 15 02/10/20 16:00 BP 100/72 02/10/20 16:00 Pulse Ox 87 L 02/10/20 16:41 02/10/20 02/10/20 02/10/20 06:59 14:59 22:59 Intake Total 981.250 / 3609.500 470 / 470 Output Total 375 / 375 Balance 981.250 / 3134.500 95 / 95 Physical Exam Narrative: EXAM NARRATIVE: General: alert, in moderate respiratory distress on BiPAP HEENT: conj clear, EOMI, PERRL, mmm, Neck: supple, no meningismus Heme: no cervical LAP Pulmonary: Mild end expiratory wheeze Cardiovascular: rrr, nl s1s2, no mrg Abdomen: soft, nt, nd, no r/g, bs+ Extremities: pulses +, no edema, no c/c : no CVA tenderness Skin: intact, no rash MSK: no back or neck pain Neurologic: grossly intact Urinary Catheter Management^: Dickey: Cath Placed During This Visit: yes Reason for Continuing Indwelling Catheter: Accurate Measurement of Urinary Output in Critically Ill Patients Urinary Catheter Date of Insertion: 02/10/20 Urinary Catheter Time of Insertion: 07:15 Data : 02/10/20 03:30 02/10/20 03:30 Micro: Microbiology 02/10/20 11:55 Blood Culture - Preliminary Blood SPECIMEN COLLECTED 02/10/20 08:32 Blood Culture - Preliminary Blood SPECIMEN COLLECTED A&P Assessment and plan (1) Respiratory failure with hypoxia: Status: Acute Qualifiers: Chronicity: acute on chronic Qualified Code(s): J96.21 - Acute and chronic respiratory failure with hypoxia (2) Atrial flutter with rapid ventricular response: Status: Acute (3) Pneumonitis: Status: Acute (4) Pneumonia: Status: Acute Qualifiers: Laterality: left Lung location: lower lobe of lung Pneumonia type: due to unspecified organism Qualified Code(s): J18.9 - Pneumonia, unspecified organism (5) Squamous cell carcinoma of lung, stage III: Status: Acute Qualifiers: Laterality: right Qualified Code(s): C34.91 - Malignant neoplasm of unspecified part of right bronchus or lung (6) Centrilobular emphysema: Status: Acute #Acute hypoxic respiratory failure likely due to COPD exacerbated by pneumonia in patient with stage IIIb squamous cell lung carcinoma #Worsening leukocytosis -Currently saturating more than 9 4 % on BiPAP 10/6 FiO2 80%. -Patient is more anxious and ill doing better with Xanax and Percocet pain -Start low-dose Precedex drip and watch for bradycardia/hypotension if patient is extremely anxious -CT chest on admission ruled out PE, but showed heterogeneous consolidation in right upper lobe similar to prior CT in November, air-fluid levels in consolidated areas representing necrosis or infection. Multifocal bilateral pulmonary infiltrates and groundglass opacities worsened. -COVID-19 PCR negative, urine Legionella and bacterial antigens negative, MRSA nares negative, blood cultures so far negative; - TB QuantiFERON negative, -On IV Solu-Medrol and scheduled nebulizations with Xopenex and Atrovent for COPD -At this point patient has A. fib RVR and is on Eliquis and amiodarone/digoxin -not ideal to do bronchoscopy and biopsy -Meanwhile will treat for underlying possible bacterial/fungal pneumonia -Agree with antibiotic coverage vancomycin, imipenem, Bactrim, voriconazole, -Can discontinue azithromycin -RVP, Fungitell, galactomannan, induced sputum for PCP pending; -Follow-up repeat blood cultures sent in view of worsening leukocytosis- -Elevated BNP and last echo October 2019 reported as possibly normal LV size and ejection fraction with possible stenotic aortic valve - Hold on Lasix as pt. is developing metabolic alkalosis -Received chemoradiation on October 06, 2019 with weekly carboplatin/Taxol and completed radiation therapy on November 19, 2019. He could not get recommended weekly carboplatin/Taxol because of on and off sickness. Last dose of weekly carboplatin/Taxol was given on November 13, 2019. -In the context of recent radiation-cannot rule out underlying radiation pneumonitis-however patient is already covered with steroids If pt respirotory status worsens, patient would want to go for intubation despite of knowing that it will be difficult to extubate due to underlying malignancy and radiation pneumonitis. Medical condition, labs, investigations, medications, plan of care including CODE STATUS-everything explained in detail to the patient. He verbalized understanding and agreed with the plan of care. Overall patient prognosis is very poor. Recommendations conveyed to RN taking care of the patient and will let Dr. Spain know-hospitalist covering the patient Attestations Medical Necessity Statement*: Acute hypoxic respiratory failure requiring high flow oxygen Time Spent in Patient Care: 16 - 35 minutes (>than 50% of time spent in counselling and/or direct pt care on unit). 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
--- NOTE | 2020-02-10 18:27 | PC.RESP ---
bipap changes made by Dr. Deleon.
[2020-02-10 18:37] LABS: Procalcitonin 0.22 ng/mL (0-0.5)
[2020-02-10] MEDS: dexmedetomidine 400 MCG in sodium chloride 0.9% (100 ml) 100 ML IV (20:43)
[2020-02-10] MEDS: zolpidem 5 mg Tablet PO (21:57)
[2020-02-11] VITALS (40 sets, daily range): BP systolic 84–131; BP diastolic 55–103; PULSE 85–116; RESP 10–38; TEMP 36.6–37.2; O2SAT 75–97
[2020-02-11] MEDS: metoclopramide 5 mg/mL SDV 2 mL IVP ×3 (00:22→16:18)
[2020-02-11] MEDS: vancomycin 1,000 MG in sodium chloride 0.9% 250 ML 250 MG IV ×2 (00:22→12:41)
[2020-02-11] MEDS: levalbuterol 1.25 mg/3 mL Neb INHALATION ×4 (02:06→20:09)
[2020-02-11] MEDS: oxyCODONE-APAP 5-325 mg Tablet PO (03:57)
[2020-02-11 04:04] LABS: Basophils # 0.1 10^3/uL (0.0-0.1); Basophils % 0.2 %; Hematocrit 32.7 % (42.0-52.0); Hemoglobin 9.8 g/dL (11.7-16.6); Lymphocytes # 0.3 10^3/uL (0.8-4.8); Lymphocytes % 0.8 %; Mean Corpuscular Hemoglobin 29.4 pg (28.0-34.0); Mean Corpuscular Volume 98.2 fL (80-94); Mean Platelet Volume 9.8 fL (7.4-10.4); Monocytes # 1.5 10^3/uL (0.2-0.9); Monocytes % 3.3 %; Neutrophils # 40.27 10^3/uL (1.8-7.7); Neutrophils % 92.9 %; Nucleated Red Blood Cells % 0 %; Platelet Count 309 10^3/cmm (130-400); Red Blood Count 3.33 10^6/uL (4.1-5.3); Red Cell Distribution Width 16.8 % (12.1-15.1)
[2020-02-11 04:05] LABS: INR 2.45 (0.8-1.2)
[2020-02-11 04:09] LABS: C Reactive Protein 166.6 mg/L (0.0-4.9)
[2020-02-11 04:13] LABS: Lactic Sepsis W/Reflex 0.7 mmol/L (0.5-2.2)
[2020-02-11 04:19] LABS: NT Pro B Type Natriuretic Pept 1110 pg/mL (0-125); Procalcitonin 0.38 ng/mL (0-0.5)
[2020-02-11 04:30] LABS: Alanine Aminotransferase 29 U/L (0-41); Albumin Level 3.2 g/dL (3.5-5.2); Alkaline Phosphatase 186 IU/L (40-130); Anion Gap 12.3 (5-19); Aspartate Amino Transferase 47 U/L (0-40); Blood Urea Nitrogen 29 mg/dL (8-23); Carbon Dioxide 30 mmol/L (22-29); Chloride 92 mmol/L (98-107); Creatine Phosphokinase 124 U/L (39-308); Globulin 2.6 g/dL (1.3-4.6); Glomerular Filtration Rate 95.6 mL/min (90-130); Glucose 95 mg/dL (65-115); Magnesium 2.4 mg/dL (1.7-2.3); Osmolality Calculated 276 mOsm/kg (285-295); Phosphorus 5.2 mg/dL (2.5-4.5); Potassium 4.3 mmol/L (3.5-5.1); Sodium 130 mmol/L (136-145); Total Bilirubin 0.2 mg/dL (0.15-1.2); Total Protein 5.8 g/dL (6.6-8.7)
[2020-02-11 04:56] LABS: White Blood Count 43.3 10^3/uL (4.0-10.0)
[2020-02-11] MEDS: dexmedetomidine 400 MCG in sodium chloride 0.9% (100 ml) 100 ML IV (06:42)
--- NOTE | 2020-02-11 07:22 | ECG_ITS ---
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1950 Requested By: Jhon Domingo Order Number: [id number] Reading MD: Measurements Intervals [place] Rate: 110 P: 34 PA: 194 QRS: -32 QRSD: 94 T: 33 QT: 286 QTc: 388 Interpretive Statements SINUS TACHYCARDIA POSSIBLE LEFT ATRIAL ENLARGEMENT [-0.1mV P WAVE IN V1/V2] MARKED LEFT AXIS DEVIATION [QRS AXIS < -30] INCOMPLETE RIGHT BUNDLE BRANCH BLOCK [90+ ms QRS DURATION, TERMINAL R IN V1/V2, 40+ ms S IN I/aVL/V4/V5/V6] NONSPECIFIC ST & T-WAVE ABNORMALITY Compared to ECG 02/10/2020 11:13:46 Incomplete right bundle-branch block now present Right ventricular hypertrophy no longer present T-wave abnormality still present [id number]
[2020-02-11 08:01] LABS: ABG PH Result 7.31 (7.35-7.45); Alveolar-Arterial Oxygen Gradi 66.6 mmHg (5-10); Arterial Blood Gas Hematocrit 31.5 % (42-52); Base Excess ABG 4.3 mmol/L (-2.0-2.0); Blood Gas Allen Test Pos; Blood Gas Operator Identificat BD; Blood Gas Sample Site Radial, right; Blood Gas Sample Type Arterial; Carboxyhemoglobin 1.6 %THgb (0.4-20.1); HCO3 ABG 31.9 mmol/L (22-26); HGB O2 Sat 84.5 % (95-100); Ionized Calcium Level - ABG 1.3 mmol/L (1.1-1.4); Methemoglobin 0.7 % (0.4-1.5); Oxygen Device BIPAP; Oxygen Saturation ABG 86.5; PO2 ABG 54.9 mmHg (80.0-100.0); Potassium Level - ABG 4.3 mmol/L (3.5-5.0); Total Hemoglobin 10.3 g/dL (14-18)
[2020-02-11 08:04] LABS: Troponin T (5th) Once 22 ng/L (0-15)
--- NOTE | 2020-02-11 08:25 | PM.PN ---
Subjective Subjective: Interval history: The patient has taken a turn for the worse and his consciousness is starting to decline. The patient is able to state a few words, however he does show signs of confusion. Overall the patient states that he has some pain in his back otherwise denies any other pain. He states that he is short of breath. Vitals/I&O/Wt Last Vital Signs Temp 97.9 F 02/11/20 06:00 Pulse 106 H 02/11/20 08:21 Resp 27 H 02/11/20 08:00 BP 131/80 02/11/20 08:00 Pulse Ox 92 02/11/20 08:21 02/10/20 02/11/20 02/11/20 22:59 06:59 14:59 Intake Total 645.625 / 1115.625 763.578 / 1879.203 0 / 0 Output Total 350 / 725 375 / 1100 0 / 0 Balance 295.625 / 390.625 388.578 / 779.203 0 / 0 Physical Exam Narrative: EXAM NARRATIVE: General: Resting in bed and breathing more easily. Responding to stimuli. Neck: No masses appreciated Heart: Tachycardia with regular rate. No murmurs. Lungs: Patient is currently on BiPAP with 100% FiO2. Moderate diffuse wheezes. Breathing is now slower and labored. Diffuse rhonchi. Decreased air entry on the right lower lung. Abdomen: No significant hepatosplenomegaly. No significant pain. No rebound tenderness noted. Extremities: No edema. Urinary Catheter Management^: Dickey: Cath Placed During This Visit: yes Reason for Continuing Indwelling Catheter: Accurate Measurement of Urinary Output in Critically Ill Patients Urinary Catheter Date of Insertion: 02/10/20 Urinary Catheter Time of Insertion: 07:15 Data : 02/11/20 03:20 02/11/20 03:20 Micro: Microbiology 02/10/20 11:55 Blood Culture - Preliminary Blood SPECIMEN COLLECTED 02/10/20 08:32 Blood Culture - Preliminary Blood SPECIMEN COLLECTED A&P Additional A&P Information 1. Hypoxia with respiratory failure -the patient is currently on BiPAP with 100% FiO2. His settings are being maxed out and the neck step would be intubation. The patient mentioned to the nurse overnight that he wanted comfort measures. We have spoken with the patient's son and he says that he will come in and see the patient soon and that the patient may be on comfort measures if he were to decline before he arrives. At this point the patient will be a DO NOT INTUBATE and DO NOT RESUSCITATE. 2. Metastatic lung cancer -the patient has metastatic lung cancer in both lungs and received chemo and radiation treatment in October. The patient sees Dr. Sibley for oncology. The patient saw Dr. Sibley in mid January and he recommended no further chemotherapy until his lungs are improved. I do not feel that the patient's overall status will improve to be able to tolerate chemotherapy in the future. 3. Pneumonia with sepsis-the patient is currently on Bactrim, imipenem, Vancomycin and voriconazole. Chest x-ray appears to be relatively unchanged. Viral and fungal cultures are pending. I am quite concerned that the patient's white blood cell count has continued to elevate and there are signs of multiorgan dysfunction with INR significantly increasing. The patient now has hematuria. We will continue with broad-spectrum antibiotics for treatment, however I am concerned that the patient will continue to decline despite maximal therapies. I discussed this with the patient's son and he expresses understanding. 4. History of pulmonary embolism -the patient is on Eliquis for prophylaxis. This may need to be stopped if his bleeding persists. 5. Anxiety -continue with Xanax as needed. We will increase the frequency to every 6 hours as it seems to have helped with his breathing overnight. 6. Constipation -resolved 7. Atrial flutter with RVR -Dr. Angela has evaluated the patient and he is currently on digoxin, amiodarone and metoprolol. He is now in sinus rhythm with a heart rate in the 100s. 8. Diarrhea -resolved at this time. 9. Prophylaxis -the patient is on Eliquis for prophylaxis. Attestations Medical Necessity Statement*: The patient is critically ill and continues to need inpatient therapy. 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
[2020-02-11] MEDS: budesonide 0.5 mg/2 mL Neb INHALATION ×2 (08:26→20:09)
[2020-02-11] MEDS: morphine 4 mg/mL SDV 1 mL 2 MG IVP (08:27)
--- NOTE | 2020-02-11 10:27 | XR_ITS ---
WS: [id number] Exam: XR chest 1V portable [id number] Date/Time of Exam: 02/11/2020 10:27 AM Reason For Exam: et tube Comparison 02/10/2020. Extensive infiltrate in the left lung again noted and showing very little change. There is also proba celsa some acute infiltrate in the right lung with superimposed chronic changes. Right-sided pleural th ickening and scarring again noted. ET tube is in place ending about 5 cm above the magaly unchanged. An enteric tube is in the fundus of the stomach. The side-port of the tube is probably near the gastr oesophageal junction. No pneumothorax. Monitoring leads superimpose the chest. Left subclavian centra l line ending at the expected region of the cavoatrial junction. XR/XR chest 1V portable [id number] IMPRESSION: 1. Extensive infiltrate in the left lung showing minimal change since prior michelle dy. 2. There is also probably some acute infiltrate in the right lung with superimp osed chronic changes. 3. ET tube and left subclavian central line remaining in satisfactory position. 4. Enteric tube noted in the fundus of the stomach however the side-port of the tube is probably near the gastroesophageal junction. It is recommended that th e enteric tube be advanced another 3 to 4 cm for optimal position.
[2020-02-11] MEDS: succinylcholine 20 mg/mL SDV 10mL 400 MG (10:52)
[2020-02-11] MEDS: etomidate 20 ML 20 MG (10:52)
--- NOTE | 2020-02-11 10:53 | PC.NURSE ---
INTUBATION Son came in and spoke with patient. decision to intubate patient was made between the two. Preintubation vitals at 1022 O2:92% on bibpap 90%fio2 bp:131/103 1024 30mg Etomodate 1024 100mg Succs 1025 ETT placed positive CO2 monitor readings drugs wasted with RADHA Vee postintubation vitals at 1027 O2: 89% BP:106/70 HR:105 precedex gtt at 0.7 fentanly gtt started at 1027 @50mcg/hr OG placed by nurse. positive sounds heard. Xray in room for confirmation bilateral soft wrist restraints placed on patient at 1030. son updated by nurse, , and IsabellaRN.
[2020-02-11 11:17] LABS: Aspergillus AG,EIA,Serum NOT DETECTED; Aspergillus Galactomannan Inde <0.50
[2020-02-11] MEDS: sucralfate 1 gm/10 mL Oral Liq UDC PO ×3 (11:19→21:28)
[2020-02-11 11:44] LABS: Arterial Blood Gas Hematocrit 29.1 % (42-52); Base Excess ABG 4.5 mmol/L (-2.0-2.0); Blood Gas Allen Test Pos; Blood Gas Operator Identificat BD; Blood Gas Sample Site Radial, right; Blood Gas Sample Type Arterial; Carboxyhemoglobin 1.6 %THgb (0.4-20.1); HCO3 ABG 32.2 mmol/L (22-26); HGB O2 Sat 91.8 % (95-100); Ionized Calcium Level - ABG 1.3 mmol/L (1.1-1.4); Methemoglobin 0.9 % (0.4-1.5); Oxygen Device VENT; Oxygen Saturation ABG 94.2; PO2 ABG 75.1 mmHg (80.0-100.0); Total Hemoglobin 9.5 g/dL (14-18)
[2020-02-11 11:45] LABS: ABG PCO2 65.6 mmHg (35-45)
[2020-02-11] MEDS: propofol 1,000 MG/100 ML INJ 8.2 MG IV (12:29)
--- NOTE | 2020-02-11 14:35 | PM.PN ---
Subjective Subjective: Interval history: Today morning patient went into respiratory failure even on 100% FiO2 and on BiPAP. Patient was intubated and placed on mechanical ventilation with 100% FiO2 and PEEP of 6 but still his plateau pressures were significantly high due to noncompliant lungs. Placed on pressure control ventilation and patient was still overbreathing the vent, so sedated with fentanyl 150 MCG, Versed 4 plan is to start propofol if needed/paralytic. Maps around 65 and might need Levophed if it drops below. Persistent leukocytosis, cultures negative so far Did deep suctioning and sent for sputum cultures Overall very bad prognosis given his underlying lung cancer and noncompliant lungs. Medications: Reviewed: Yes Medication Review Details: Current Medications Alprazolam (Xanax) 0.5 mg PO BID PRN PRN Reason: ANXIETY Last Admin: 02/05/20 21:09 Dose: 0.5 mg Documented by: Amiodarone HCl (Cordarone) 400 mg PO Q12H [facility] Last Admin: 02/06/20 09:19 Dose: 400 mg Documented by: Apixaban (Eliquis) 5 mg PO Q12H [facility] Last Admin: 02/06/20 09:20 Dose: 5 mg Documented by: Benzonatate (Tessalon Pearls) 100 mg PO TID [facility] Last Admin: 02/06/20 09:19 Dose: 100 mg Documented by: Budesonide (Pulmicort) 0.5 mg INHALATION BID [facility] Last Admin: 01/31/20 19:49 Dose: 0.5 mg Documented by: Digoxin (Lanoxin) 125 mcg PO DAILY [facility] Last Admin: 02/06/20 09:19 Dose: 125 mcg Documented by: Ferrous Sulfate (Ferrous Sulfate) 325 mg PO BID [facility] Last Admin: 02/06/20 09:20 Dose: 325 mg Documented by: Guaifenesin (Mucinex) 1,200 mg PO BID [facility] Last Admin: 02/06/20 09:19 Dose: 1,200 mg Documented by: Amiodarone HCl 900 mg/Dextrose/ IV Miscellaneous Supplies 518 mls @ 0 mls/hr IV .Q0M [facility]; Protocol Last Titration: 02/04/20 01:10 Dose: 0 mg/min, 0 mls/hr Documented by: Imipenem/Cilastatin Sodium 250 (mg/ Sodium Chloride) 100 mls @ 200 mls/hr IV Q6H [facility]; Protocol Last Admin: 02/06/20 12:38 Dose: 100 mls/hr Documented by: Ipratropium [place]cadia (Atrovent Neb) 0.5 mg INHALATION Q6H.RESPIRATORY [facility] Last Admin: 02/06/20 08:47 Dose: 0.5 mg Documented by: Levalbuterol HCl (Xopenex) 1.25 mg INHALATION Q6H.RESPIRATORY [facility] Last Admin: 02/06/20 08:46 Dose: 1.25 mg Documented by: Magnesium Hydroxide (Milk Of Magnesia) 30 ml PO DAILY PRN PRN Reason: Constipation Methylprednisolone Sodium Succinate (Solu-Medrol) 60 mg IVP Q8H [facility] Last Admin: 02/06/20 05:16 Dose: 60 mg Documented by: Metoclopramide HCl (Reglan) 5 mg IVP Q8H [facility] Last Admin: 02/02/20 18:40 Dose: 5 mg Documented by: Metoprolol Tartrate (Lopressor) 25 mg PO TID [facility] Last Admin: 02/06/20 09:19 Dose: 25 mg Documented by: Metoprolol Tartrate (Metoprolol Tartrate) 5 mg IV Q4H PRN PRN Reason: tachycardia for HR>120 Multivitamins Therapeutic (Multivitamin Tab) 1 tab PO DAILY [facility] Last Admin: 02/02/20 07:56 Dose: 1 tab Documented by: Ondansetron HCl (Zofran) 8 mg PO Q8H PRN PRN Reason: Nausea Oxycodone/Acetaminophen (Percocet 5-325 Mg) 1 - 2 tab PO Q4H PRN PRN Reason: Moderate To Severe Pain Last Admin: 02/05/20 20:26 Dose: 1 tab Documented by: Pantoprazole Sodium (Protonix) 40 mg PO DAILY [facility] Last Admin: 02/06/20 09:19 Dose: 40 mg Documented by: Fluticasone/Salmeterol (Advair Diskus 500-50) 1 puff INHALATION BID.RESPIRATORY [facility] Last Admin: 02/02/20 20:39 Dose: Not Given Documented by: Senna/Docusate Sodium (Senna-S) 1 tab PO BID PRN PRN Reason: Constipation Sertraline HCl (Zoloft) 100 mg PO DAILY [facility] Last Admin: 02/06/20 09:20 Dose: 100 mg Documented by: Sucralfate (Carafate Oral Liq) 1 gm PO AC&BEDTIME VIKY Last Admin: 02/06/20 10:49 Dose: 1 gm Documented by: Tamsulosin HCl (Flomax) 0.4 mg PO BEDTIME [facility]KY Last Admin: 02/05/20 20:26 Dose: 0.4 mg Documented by: Tiotropium Arcadia (Spiriva) 18 mcg INHALATION DAILY.RESPIRATORY [facility] Last Admin: 02/06/20 08:46 Dose: Not Given Documented by: Zolpidem Tartrate (Ambien) 5 mg PO BEDTIME PRN PRN Reason: SLEEP Last Admin: 02/05/20 21:02 Dose: 5 mg Documented by: Vitals/I&O/Wt Last Vital Signs Temp 98.4 F 02/11/20 13:00 Pulse 96 02/11/20 14:31 Resp 21 H 02/11/20 14:32 BP 101/67 02/11/20 14:00 Pulse Ox 94 02/11/20 14:31 02/10/20 02/11/20 02/11/20 22:59 06:59 14:59 Intake Total 645.625 / 1115.625 763.578 / 1879.203 405.821 / 405.821 Output Total 350 / 725 375 / 1100 0 / 0 Balance 295.625 / 390.625 388.578 / 779.203 405.821 / 405.821 Physical Exam Narrative: EXAM NARRATIVE: General: Intubated and connected to ventilator, sedated HEENT: conj clear, PERRL, mmm, Neck: supple, no meningismus Heme: no cervical LAP Pulmonary: Significant end expiratory wheeze Cardiovascular: rrr, nl s1s2, no mrg Abdomen: soft, nt, nd, no r/g, bs+ Extremities: pulses +, no edema, no c/c : no CVA tenderness Skin: intact, no rash MSK: no back or neck pain Neurologic: Sedated Urinary Catheter Management^: Dickey: Cath Placed During This Visit: yes Reason for Continuing Indwelling Catheter: Accurate Measurement of Urinary Output in Critically Ill Patients Urinary Catheter Date of Insertion: 02/10/20 Urinary Catheter Time of Insertion: 07:15 Data : 02/11/20 03:20 02/11/20 03:20 Micro: Microbiology 10/27/20 11:55 Blood Culture - Preliminary Blood NEGATIVE TO DATE 02/10/20 08:32 Blood Culture - Preliminary Blood NEGATIVE TO DATE A&P Assessment and plan (1) Respiratory failure with hypoxia: Status: Acute Qualifiers: Chronicity: acute on chronic Qualified Code(s): J96.21 - Acute and chronic respiratory failure with hypoxia (2) Atrial flutter with rapid ventricular response: Status: Acute (3) Pneumonitis: Status: Acute (4) Pneumonia: Status: Acute Qualifiers: Laterality: left Lung location: lower lobe of lung Pneumonia type: due to unspecified organism Qualified Code(s): J18.9 - Pneumonia, unspecified organism (5) Squamous cell carcinoma of lung, stage III: Status: Acute Qualifiers: Laterality: right Qualified Code(s): C34.91 - Malignant neoplasm of unspecified part of right bronchus or lung (6) Centrilobular emphysema: Status: Acute (7) ARDS (adult respiratory distress syndrome): Status: Acute #Acute hypoxic respiratory failure/ARDS likely due to underlying stage IIIb squamous cell lung carcinoma-? Underlying pneumonia #Worsening leukocytosis - -Currently Intubated and connected to ventilator on pressure control mode with PIP 30 pulling tidal volumes 300-3 50 with high plateau pressures suggestive of very noncompliant lungs -ABG 7.2 4/70/70 6/92% 100% FiO2 PEEP of 8/radiation pneumonitis -Sedated with fentanyl, Versed. We will add propofol and possible paralytic -CT chest on admission ruled out PE, but showed heterogeneous consolidation in right upper lobe similar to prior CT in November, air-fluid levels in consolidated areas representing necrosis or infection. Multifocal bilateral pulmonary infiltrates and groundglass opacities worsened. -COVID-19 PCR negative, urine Legionella and bacterial antigens negative, MRSA nares negative, blood cultures so far negative; - TB QuantiFERON negative, -On IV Solu-Medrol and scheduled nebulizations with Xopenex and Atrovent for COPD -At this point patient has A. fib RVR and is on Eliquis and amiodarone/digoxin -Meanwhile will treat for underlying possible bacterial/fungal pneumonia -Agree with antibiotic coverage vancomycin, imipenem, Bactrim, -Will DC voriconazole and start caspofungin -RVP, Fungitell, galactomannan, induced sputum for PCP pending; -BNP 1100 give Lasix 40 mg once -Follow-up repeat blood cultures, urine cultures sputum cultures sent in view of worsening leukocytosis- -Elevated BNP and last echo October 2019 reported as possibly normal LV size and ejection fraction with possible stenotic aortic valve -Received chemoradiation on October 06, 2019 with weekly carboplatin/Taxol and completed radiation therapy on November 19, 2019. He could not get recommended weekly carboplatin/Taxol because of on and off sickness. Last dose of weekly carboplatin/Taxol was given on November 13, 2019. -In the context of recent radiation-cannot rule out underlying radiation pneumonitis-however patient is already covered with steroids Patient is very critical with extremely poor prognosis given his underlying lung carcinoma with possible lymphangitic spread. Very noncompliant lungs as evidenced by high plateau pressures on ventilator, barely saturating 90% on 100% FiO2 with PEEP of 8 and pulling tidal volumes not enough to achieve adequate ventilation to maintain normal pH. I strongly feel patient is deteriorating and would have cardiac arrest at any time. Explained everything in detail to patient's son and he understands the grave prognosis but still wants to respect his father's wishes and would want to do CPR at least once and try to resuscitate. He would want to be notified after first code resuscitation to reconsider his decision to make his father comfort care at that time. Recommendations conveyed to Dr. Spain -hospitalist covering the patient Attestations Medical Necessity Statement*: Hypoxic respiratory failure secondary to ARDS likely due to underlying lymphatic spread of squamous cell carcinoma Coding Level of Care Code Acute [employer] for [facility] [employer] Fwd Diagnoses Respiratory failure with hypoxia J96.21 Chronicity: acute on chronic Atrial flutter with rapid ventricular response I48.92 Pneumonitis J18.9 Pneumonia J18.9 Laterality: left Lung location: lower lobe of lung Pneumonia type: due to unspecified organism Squamous cell carcinoma of lung, stage III C34.91 Laterality: right Centrilobular emphysema J43.2 ARDS (adult respiratory distress syndrome) J80
[2020-02-11 14:42] LABS: ABG PH Result 7.24 (7.35-7.45); Alveolar-Arterial Oxygen Gradi 71.4 mmHg (5-10); Arterial Blood Gas Hematocrit 29.1 % (42-52); Base Excess ABG 3.7 mmol/L (-2.0-2.0); Blood Gas Allen Test Pos; Blood Gas Operator Identificat BD; Blood Gas Sample Site Radial, right; Blood Gas Sample Type Arterial; Carboxyhemoglobin 1.8 %THgb (0.4-20.1); HCO3 ABG 32.3 mmol/L (22-26); HGB O2 Sat 89.8 % (95-100); Ionized Calcium Level - ABG 1.3 mmol/L (1.1-1.4); Methemoglobin 0.8 % (0.4-1.5); Oxygen Device VENT; Oxygen Saturation ABG 92.2; PO2 ABG 74.8 mmHg (80.0-100.0); Potassium Level - ABG 4.1 mmol/L (3.5-5.0); Total Hemoglobin 9.5 g/dL (14-18)
[2020-02-11 14:44] LABS: ABG PCO2 74.7 mmHg (35-45)
[2020-02-11] MEDS: FUROsemide 10 mg/mL SDV 4mL 40 MG IVP (15:00)
[2020-02-11] MEDS: benzonatate 100 mg Capsule PO (15:00)
--- NOTE | 2020-02-11 15:12 | XR_ITS ---
WS: [id number] PORTABLE CHEST HISTORY: DECREASED O2 COMPARISON: 02/11/2020. Endotracheal tube and nasogastric tubes are in good position. LEFT subclavian Port-A-Cath remains in good position also. Lung volumes are decreased. Similar interstitial thickening as compared to the pr ior study. There is no pneumothorax. Small RIGHT pleural effusion. Cardiac size: Normal. Mediastinum/Aorta: Mild atherosclerosis aorta. No osseous abnormality seen. XR/XR chest 1V portable [id number] IMPRESSION: 1. No pneumothorax. 2. Nasogastric and endotracheal tubes in good position. 3. Interstitial lung disease is similar to the prior study.
[2020-02-11] MEDS: guaiFENesin 600 mg Tablet 1200 MG PO (17:22)
[2020-02-11] MEDS: ferrous sulfate EC 325 mg Tablet PO (17:22)
--- NOTE | 2020-02-11 18:00 | PC.NURSE ---
Shift Summary Upon nursing arriving to shift, patient was working hard to breath with oxygen saturations in the high 80s on 90% fio2 on the bipap. Miguel Angel,RN had called to come and assess patient. Patient had made statements of wanting to be comfort care to nurse. Spain and at bedside. conversation about near future made by Doctors. Due to patient being on precedex and narcotics, britany Stinson was called to make final decisions. son stated over the phone to physicians that if he were to decline before son got here, we did not want to be coded. patient code status changed to AND. Son at bedside speaking with patient. patient stated that he would like to be intubated at this time. patient stated that if he were to code during intubation, he would like everything done for him. code status changed back to Full code. patient intubated by , see ntubation note. Levophed started to help low blood pressure. Propofol started per verbal order by for patient comfort. Verbal order from to increase fentanyl gtt to 200mcg MAX if needed for patient comfort. Patient oxygen saturation continuing to stay in mid 80s with 100%FIO2 on ventilator. at bedside with RT. called and updated son on patient status. See update in reports.
[2020-02-11 18:41] LABS: Urine Color Red (Yellow)
[2020-02-11 18:42] LABS: Add Urine Microscopic? YES; Bilirubin Urine Neg (Negative); Blood Urine 3+ (Negative); Glucose Urine UA Norm (Normal); Ketones Urine Negative (Negative); Leukocyte Esterase Urine Negative (Negative); Nitrate Urine Negative (Negative); Protein Urine Neg (Negative); Specific Gravity, Urine 1.015 (1.005-1.030); Urine Appearance Cloudy (CLEAR); Urobilinogen Urine Norm (Negative); pH Urine 5 (5-7)
[2020-02-11 18:43] LABS: RBC Urine 80-100 /hpf (0-2); WBC Urine 0-4 /hpf (0-5)
[2020-02-11 18:44] LABS: Add Urine Culture? Yes; Bacteria Urine TRACE /hpf; Fine Granular Casts Urine 0-4 /lpf; Hyaline Casts Urine 0-4 /lpf; Squamous Epithelial Cell Urine 0-4 /hpf (0-5)
[2020-02-11 20:34] LABS: ABG PH Result 7.29 (7.35-7.45); Alveolar-Arterial Oxygen Gradi 75.3 mmHg (5-10); Arterial Blood Gas Hematocrit 28.9 % (42-52); Base Excess ABG 4.4 mmol/L (-2.0-2.0); Blood Gas Allen Test Pos; Blood Gas Sample Site Radial, right; Blood Gas Sample Type Arterial; Carboxyhemoglobin 1.6 %THgb (0.4-20.1); HCO3 ABG 32.3 mmol/L (22-26); HGB O2 Sat 80.3 % (95-100); Ionized Calcium Level - ABG 1.2 mmol/L (1.1-1.4); Methemoglobin 0.6 % (0.4-1.5); Oxygen Device VENT; Oxygen Saturation ABG 82.1; PO2 ABG 49.3 mmHg (80.0-100.0); Total Hemoglobin 9.4 g/dL (14-18)
[2020-02-11 20:37] LABS: ABG PCO2 68.1 mmHg (35-45)
[2020-02-11] MEDS: amiodarone 200 mg Tablet PO (21:28)
[2020-02-11] MEDS: apixaban 5 mg Tablet PO (21:29)
--- NOTE | 2020-02-11 23:37 | PC.NURSE ---
CHANGE OF SHIFT Upon change of shift report, patient on 10 mcg/min of levophed, 15 mcg/kg/min of propofol, 4 mg/hour of versed, and 150 mcg/hour of fentanyl per order from Dr. Monahan.
[2020-02-12] VITALS (41 sets, daily range): BP systolic 77–124; BP diastolic 47–71; PULSE 106–150; RESP 22–42; TEMP 37.1–37.6; O2SAT 83–93
[2020-02-12 00:09] LABS: Vancomycin Trough 24.1 ug/mL (10-15)
[2020-02-12] MEDS: metoclopramide 5 mg/mL SDV 2 mL IVP ×4 (00:33→23:56)
--- NOTE | 2020-02-12 00:57 | PC.NURSE ---
O2 DESATURATION At around 2349 patient began to become tachycardic between 110-130 and oxygen began decreasing to 88% and is now down to 84% and sustaining there as well as heart rate of 130. Patients BP is 112/67 on 10 mcg/min of levophed. Dr. Hidalgo notified by nurse of increasing heart rate and decreasing oxygen, & Dr. Monahan notified by respiratory and asked to speak with nurse also. Dr. Monahan informed nurse that he spoke with son about patients diagnosis and prognosis. No new orders at this time.
--- NOTE | 2020-02-12 01:30 | PC.NURSE ---
FAMILY CALLED Patients granddaughter called, Chyna, but she was not on patients list for information. Informed that she would have to contact another family member or patients son.
[2020-02-12] MEDS: propofol 1,000 MG/100 ML INJ 8.2 MG IV ×2 (01:52→18:10)
--- NOTE | 2020-02-12 02:10 | PC.PHAR ---
Vancomycin trough on 1gm IVPB ever 12 hours if 24.1. Vanomycin is held for 48 hours and resumed at 1gm IVPB ever 24 hours with trough to be obtained before third dose.
[2020-02-12] MEDS: levalbuterol 1.25 mg/3 mL Neb INHALATION ×3 (02:31→14:44)
--- NOTE | 2020-02-12 03:07 | PC.NURSE ---
OXYGEN/HR Patients oxygen has came back up to 87% and has not decreased anymore. Heart rate remains between 120-130.
[2020-02-12] MEDS: sucralfate 1 gm/10 mL Oral Liq UDC PO ×4 (05:54→20:40)
--- NOTE | 2020-02-12 06:29 | PC.NURSE ---
SHIFT SUMMARY Patient has had eventful night. Around 2344 last night patients oxygen began to decrease and patient became tachycardic. Since then oxygen has increased back to an average of 88% on 100% FiO2. Patients heart rate has sustained between 120-130 since then also. BP has not been an issue. Patient remains on levophed at 10 mcg/min, propofol at 15 mcg/kg/min, versed at 4 mg/hour, and fentanyl at 150 mcg/hour per Dr. Dennison critical care order to nurse. Patient has had 800 mL of urine output. Patient has not been responsive this shift. Very small amount of sputum with in line suctioning and oral care.
--- NOTE | 2020-02-12 06:34 | PC.NURSE ---
CUFF LEAK Patient had audible cuff leak around 0500. Respiratory notified, air injected by RT and cuff pressure checked. No issues since then.
[2020-02-12 07:41] LABS: Basophils # 0.1 10^3/uL (0.0-0.1); Basophils % 0.2 %; Hematocrit 31.8 % (42.0-52.0); Hemoglobin 9.5 g/dL (11.7-16.6); Lymphocytes # 0.2 10^3/uL (0.8-4.8); Lymphocytes % 0.6 %; Mean Corpuscular HGB Conc 29.9 g/dL (30.0-36.0); Mean Corpuscular Hemoglobin 29.5 pg (28.0-34.0); Mean Corpuscular Volume 98.8 fL (80-94); Mean Platelet Volume 9.9 fL (7.4-10.4); Monocytes # 0.6 10^3/uL (0.2-0.9); Monocytes % 1.6 %; Neutrophils # 34.77 10^3/uL (1.8-7.7); Neutrophils % 95.2 %; Nucleated Red Blood Cells % 0 %; Platelet Count 337 10^3/cmm (130-400); Red Blood Count 3.22 10^6/uL (4.1-5.3); Red Cell Distribution Width 17.1 % (12.1-15.1)
[2020-02-12 07:58] LABS: Lactate (Lactic Acid level) 0.6 mmol/L (0.5-2.2)
[2020-02-12 07:59] LABS: Alanine Aminotransferase 31 U/L (0-41); Albumin Level 2.9 g/dL (3.5-5.2); Alkaline Phosphatase 201 IU/L (40-130); Anion Gap 11.4 (5-19); Aspartate Amino Transferase 28 U/L (0-40); Blood Urea Nitrogen 32 mg/dL (8-23); Calcium 8.7 mg/dL (8.5-10.5); Carbon Dioxide 31 mmol/L (22-29); Chloride 94 mmol/L (98-107); Globulin 3.1 g/dL (1.3-4.6); Glomerular Filtration Rate 83.4 mL/min (90-130); Glucose 187 mg/dL (65-115); Osmolality Calculated 286 mOsm/kg (285-295); Potassium 4.4 mmol/L (3.5-5.1); Sodium 132 mmol/L (136-145); Total Bilirubin 0.2 mg/dL (0.15-1.2)
[2020-02-12] MEDS: budesonide 0.5 mg/2 mL Neb INHALATION (08:12)
[2020-02-12 08:18] LABS: White Blood Count 36.5 10^3/uL (4.0-10.0)
--- NOTE | 2020-02-12 08:36 | PC.NURSE ---
Reported critical WBC to primary nurse RADHA Madrid
[2020-02-12] MEDS: guaiFENesin 600 mg Tablet 1200 MG PO ×2 (09:02→18:04)
[2020-02-12] MEDS: amiodarone 200 mg Tablet PO ×2 (09:07→20:40)
[2020-02-12] MEDS: multivitamin therapeutic Tablet 1 TAB PO (09:08)
[2020-02-12] MEDS: ferrous sulfate EC 325 mg Tablet PO ×2 (09:09→18:05)
[2020-02-12] MEDS: sertraline 100 mg Tablet PO (09:09)
[2020-02-12] MEDS: benzonatate 100 mg Capsule PO ×2 (09:10→15:05)
--- NOTE | 2020-02-12 10:23 | PC.SOCIAL ---
IMM Update Pg. 2 of IMM Updated. Initialed, dated, and timed, and placed in chart. Copy provided to patient.
[2020-02-12] MEDS: pantoprazole 40 mg SDV IVP (10:26)
--- NOTE | 2020-02-12 10:30 | PC.NURSE ---
Son, Milad called, updated him on pt's condition.
[2020-02-12 11:05] LABS: ABG PH Result 7.21 (7.35-7.45); Alveolar-Arterial Oxygen Gradi 72.3 mmHg (5-10); Arterial Blood Gas Hematocrit 28.7 % (42-52); Base Excess ABG 2.3 mmol/L (-2.0-2.0); Blood Gas Allen Test Pos; Blood Gas Operator Identificat MB; Blood Gas Sample Site Radial, right; Blood Gas Sample Type Arterial; Carboxyhemoglobin 1.4 %THgb (0.4-20.1); HCO3 ABG 31.5 mmol/L (22-26); HGB O2 Sat 84.9 % (95-100); Ionized Calcium Level - ABG 1.3 mmol/L (1.1-1.4); Methemoglobin 0.9 % (0.4-1.5); Oxygen Device VENT; Oxygen Saturation ABG 86.9; Potassium Level - ABG 4.2 mmol/L (3.5-5.0); Total Hemoglobin 9.4 g/dL (14-18)
[2020-02-12 11:06] LABS: ABG PCO2 79.7 mmHg (35-45)
--- NOTE | 2020-02-12 11:16 | PC.RESP ---
VERBAL ORDER FROM DR. LAZARO RR TO 24
--- NOTE | 2020-02-12 11:37 | PC.NURSE ---
Abhijeet Jeffrey called, stated she was pt's daughter, she was not found on contact info. Informed her of this. Phone was then passed off to Luana Guerra, won is listed as pt's grand daughter. Update her on pt's condition, and changes on ventilator.
--- NOTE | 2020-02-12 14:12 | P.PN_ITS ---
Subjective Subjective: Interval history: Unchanged respiratory status on pressure control mode with PIP 38, PEEP 10, rate 22 still pulling low tidal volumes with high plateau pressures and ABG showing worsening respiratory acidosis. Sedated with fentanyl 150 MCG, Versed 4 and propofol On Levophed 10 Persistent leukocytosis but improving, cultures negative so far Awaiting culture results Overall very bad prognosis given his underlying lung cancer and noncompliant lungs. Medications: Reviewed: Yes Medication Review Details: Current Medications Alprazolam (Xanax) 0.5 mg PO BID PRN PRN Reason: ANXIETY Last Admin: 02/05/20 21:09 Dose: 0.5 mg Documented by: Amiodarone HCl (Cordarone) 400 mg PO Q12H [facility] Last Admin: 02/06/20 09:19 Dose: 400 mg Documented by: Apixaban (Eliquis) 5 mg PO Q12H [facility] Last Admin: 02/06/20 09:20 Dose: 5 mg Documented by: Benzonatate (Tessalon Pearls) 100 mg PO TID [facility] Last Admin: 02/06/20 09:19 Dose: 100 mg Documented by: Budesonide (Pulmicort) 0.5 mg INHALATION BID [facility] Last Admin: 01/31/20 19:49 Dose: 0.5 mg Documented by: Digoxin (Lanoxin) 125 mcg PO DAILY [facility] Last Admin: 02/06/20 09:19 Dose: 125 mcg Documented by: Ferrous Sulfate (Ferrous Sulfate) 325 mg PO BID [facility] Last Admin: 02/06/20 09:20 Dose: 325 mg Documented by: Guaifenesin (Mucinex) 1,200 mg PO BID [facility] Last Admin: 02/06/20 09:19 Dose: 1,200 mg Documented by: Amiodarone HCl 900 mg/Dextrose/ IV Miscellaneous Supplies 518 mls @ 0 mls/hr IV .Q0M [facility]; Protocol Last Titration: 02/04/20 01:10 Dose: 0 mg/min, 0 mls/hr Documented by: Imipenem/Cilastatin Sodium 250 (mg/ Sodium Chloride) 100 mls @ 200 mls/hr IV Q6H [facility]; Protocol Last Admin: 02/06/20 12:38 Dose: 100 mls/hr Documented by: Ipratropium Carolina (Atrovent Neb) 0.5 mg INHALATION Q6H.RESPIRATORY [facility] Last Admin: 02/06/20 08:47 Dose: 0.5 mg Documented by: Levalbuterol HCl (Xopenex) 1.25 mg INHALATION Q6H.RESPIRATORY [facility] Last Admin: 02/06/20 08:46 Dose: 1.25 mg Documented by: Magnesium Hydroxide (Milk Of Magnesia) 30 ml PO DAILY PRN PRN Reason: Constipation Methylprednisolone Sodium Succinate (Solu-Medrol) 60 mg IVP Q8H [facility] Last Admin: 02/06/20 05:16 Dose: 60 mg Documented by: Metoclopramide HCl (Reglan) 5 mg IVP Q8H [facility] Last Admin: 02/02/20 18:40 Dose: 5 mg Documented by: Metoprolol Tartrate (Lopressor) 25 mg PO TID [facility] Last Admin: 02/06/20 09:19 Dose: 25 mg Documented by: Metoprolol Tartrate (Metoprolol Tartrate) 5 mg IV Q4H PRN PRN Reason: tachycardia for HR>120 Multivitamins Therapeutic (Multivitamin Tab) 1 tab PO DAILY [facility] Last Admin: 02/02/20 07:56 Dose: 1 tab Documented by: Ondansetron HCl (Zofran) 8 mg PO Q8H PRN PRN Reason: Nausea Oxycodone/Acetaminophen (Percocet 5-325 Mg) 1 - 2 tab PO Q4H PRN PRN Reason: Moderate To Severe Pain Last Admin: 02/05/20 20:26 Dose: 1 tab Documented by: Pantoprazole Sodium (Protonix) 40 mg PO DAILY [facility] Last Admin: 02/06/20 09:19 Dose: 40 mg Documented by: Fluticasone/Salmeterol (Advair Diskus 500-50) 1 puff INHALATION BID.RESPIRATORY [facility] Last Admin: 02/02/20 20:39 Dose: Not Given Documented by: Senna/Docusate Sodium (Senna-S) 1 tab PO BID PRN PRN Reason: Constipation Sertraline HCl (Zoloft) 100 mg PO DAILY [facility] Last Admin: 02/06/20 09:20 Dose: 100 mg Documented by: Sucralfate (Carafate Oral Liq) 1 gm PO AC&BEDTIME [facility] Last Admin: 02/06/20 10:49 Dose: 1 gm Documented by: Tamsulosin HCl (Flomax) 0.4 mg PO BEDTIME [facility] Last Admin: 02/05/20 20:26 Dose: 0.4 mg Documented by: Tiotropium Carolina (Spiriva) 18 mcg INHALATION DAILY.RESPIRATORY [facility] Last Admin: 02/06/20 08:46 Dose: Not Given Documented by: Zolpidem Tartrate (Ambien) 5 mg PO BEDTIME PRN PRN Reason: SLEEP Last Admin: 02/05/20 21:02 Dose: 5 mg Documented by: Vitals/I&O/Wt Last Vital Signs Temp 99.2 F 02/12/20 12:00 Pulse 115 H 02/12/20 13:00 Resp 24 H 02/12/20 13:38 BP 99/62 02/12/20 13:00 Pulse Ox 92 02/12/20 13:00 02/11/20 02/12/20 02/12/20 22:59 06:59 14:59 Intake Total 493.533 / 042.972 9237.217 / 2278.571 313.767 / 313.767 Output Total 550 / 550 800 / 1350 50 / 50 Balance -56.467 / 349.354 579.217 / 928.571 263.767 / 263.767 Weight last 48 hrs Weight 121 lb 12.8 oz Physical Exam Narrative: EXAM NARRATIVE: General: Intubated and connected to ventilator, sedated HEENT: conj clear, PERRL, mmm, Neck: supple, no meningismus Heme: no cervical LAP Pulmonary: Significant end expiratory wheeze Cardiovascular: rrr, nl s1s2, no mrg Abdomen: soft, nt, nd, no r/g, bs+ Extremities: pulses +, no edema, no c/c : no CVA tenderness Skin: intact, no rash MSK: no back or neck pain Neurologic: Sedated Urinary Catheter Management^: Dickey: Cath Placed During This Visit: yes Reason for Continuing Indwelling Catheter: Accurate Measurement of Urinary Output in Critically Ill Patients Urinary Catheter Date of Insertion: 02/10/20 Urinary Catheter Time of Insertion: 07:15 Data : 02/12/20 07:33 02/12/20 07:33 Micro: Microbiology 02/11/20 12:15 Sputum Culture - Preliminary Sputum - Endotracheal Tube Aspirate 02/10/20 11:55 Blood Culture - Preliminary Blood NEGATIVE TO DATE A&P Assessment and plan (1) Respiratory failure with hypoxia: Status: Acute Qualifiers: Chronicity: acute on chronic Qualified Code(s): J96.21 - Acute and chronic respiratory failure with hypoxia (2) Atrial flutter with rapid ventricular response: Status: Acute (3) Pneumonitis: Status: Acute (4) Pneumonia: Status: Acute Qualifiers: Laterality: left Lung location: lower lobe of lung Pneumonia type: due to unspecified organism Qualified Code(s): J18.9 - Pneumonia, unspecified organism (5) Squamous cell carcinoma of lung, stage III: Status: Acute Qualifiers: Laterality: right Qualified Code(s): C34.91 - Malignant neoplasm of unspecified part of right bronchus or lung (6) Centrilobular emphysema: Status: Acute (7) ARDS (adult respiratory distress syndrome): Status: Acute #Acute hypoxic respiratory failure/ARDS likely due to underlying stage IIIb squamous cell lung carcinoma-? Underlying pneumonia recent history of PCP pneumonia #Worsening leukocytosis - -Currently Intubated and connected to ventilator on pressure control mode with PIP 30 pulling tidal volumes 300-3 50 with high plateau pressures suggestive of very noncompliant lungs -ABG 7.3 /61/30 184% 100% FiO2 PEEP of 10 -Sedated with fentanyl, Versed and propofol -CT chest on admission ruled out PE, but showed heterogeneous consolidation in right upper lobe similar to prior CT in November, air-fluid levels in consolidated areas representing necrosis or infection. Multifocal bilateral pulmonary infiltrates and groundglass opacities worsened. 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 fib RVR and is on Eliquis and amiodarone/digoxin -Meanwhile will treat for underlying possible bacterial/fungal pneumonia -Agree with antibiotic coverage vancomycin, imipenem, Bactrim, -We will DC caspofungin as galactomannan negative normal blood cultures showed any fungal infection -RVP, Fungitell, induced sputum for PCP pending; -BNP 1100 give Lasix 40 mg once -Follow-up repeat blood cultures, urine cultures sputum cultures sent in view of worsening leukocytosis- -Elevated BNP and last echo October 2019 reported as possibly normal LV size and ejection fraction with possible stenotic aortic valve -Received chemoradiation on October 06, 2019 with weekly carboplatin/Taxol and completed radiation therapy on November 19, 2019. He could not get recommended weekly carboplatin/Taxol because of on and off sickness. Last dose of weekly carboplatin/Taxol was given on November 13, 2019. -In the context of recent radiation-cannot rule out underlying radiation pneumonitis-however patient is already covered with steroids Patient is very critical with extremely poor prognosis given his underlying lung carcinoma with possible lymphangitic spread. Very noncompliant lungs as evidenced by high plateau pressures on ventilator, barely saturating 90% on 100% FiO2 with PEEP of 10 and pulling tidal volumes not enough to achieve adequate ventilation to maintain acceptable pH. I strongly feel patient is deteriorating and would have cardiac arrest at any time. Explained everything in detail to patient's son and he understands the grave prognosis but still wants to respect his father's wishes and would want to do CPR at least once and try to resuscitate. He would want to be notified after first code resuscitation to reconsider his decision to make his father comfort care at that time. Recommendations conveyed to Dr. Spain -hospitalist covering the patient Attestations Medical Necessity Statement*: Critically ill acute hypoxemic respiratory failure requiring mechanical ventilation with 100% FiO2 and high PEEP settings, requiring pressors and gradually deteriorating. High risk for cardiac arrest. Time Spent in Patient Care: Greater than 35 minutes (>than 50% of time spent in counselling and/or direct pt care on unit) . Critical Care Time: Critical Care Time (min): 45 Coding Level of Care Code Established Pt Acute Cattle Examiner for Chg Fwd Patient Type Established History Comprehensive Exam Comprehensive Medical Decision Making High Complexity Diagnoses Respiratory failure with hypoxia J96.21 Chronicity: acute on chronic Atrial flutter with rapid ventricular response I48.92 Pneumonitis J18.9 Pneumonia J18.9 Laterality: left Lung location: lower lobe of lung Pneumonia type: due to unspecified organism Squamous cell carcinoma of lung, stage III C34.91 Laterality: right Centrilobular emphysema J43.2 ARDS (adult respiratory distress syndrome) J80 Time Spent (min) 45
[2020-02-12 15:43] LABS: Adenovirus Not Detected (Not Detected); Human Metapneumovirus Not Detected (Not Detected); Human Parainflu Virus 1 Not Detected (Not Detected); Human Parainflu Virus 2 Not Detected (Not Detected); Human Parainflu Virus 3 Not Detected (Not Detected); Human Rsv A Not Detected (Not Detected); Influenza A Not Detected (Not Detected); Influenza B Not Detected (Not Detected); Rhinovirus/Enterovirus Not Detected (Not Detected)
--- NOTE | 2020-02-12 18:30 | PC.NURSE ---
Dr Spain called, went to voicemail. Left a update: Pt's heart rate is increasing, his blood pressure and O2s sats are decreasing. Pt turned to the left, sats dropped to 80, moved him supine, O2 sats clilmbed back up but still ow, Currently at 87%. Please call back.
--- NOTE | 2020-02-12 19:32 | PC.NURSE ---
Shift summary: Pt has been sedated and on vent . Vent settings changed peep 8 to 10, respiratory rate 22 to 24. He still requires 100% FIO2. Lungs sound are very coarse throughout. His O2 sats have been 87-93% today. He desats when he is lying on his left side. No changes in Fentanyl, Propofol or Versed rates today, See MAR. Og placement good, meds through OG today. Left chest port access changed today. It draws blood and flushes easily. He had two peripheral IVs , bilat forearm than flush easily. Pedal pulses very faint, used doppler. Hematuria noted throughout day. Eliquis on hold today. Metoprolol discontinued today due to Levophed infusing.
--- NOTE | 2020-02-12 21:27 | P.PN_ITS ---
Subjective Subjective: Interval history: The patient is currently intubated. I have been following him throughout the day. Currently he is on 100% FiO2 and vent settings have been adjusted by pulmonology. The patient has had a run of tachycardia in the 150s. This is likely secondary to being off of his metoprolol because of hypotension. He is currently on 10 of Levophed. His pH is gradually decreasing. Vitals/I&O/Wt Last Vital Signs Temp 99.5 F 02/12/20 18:00 Pulse 133 H 02/12/20 21:00 Resp 27 H 02/12/20 20:14 BP 110/66 02/12/20 21:00 Pulse Ox 90 02/12/20 21:00 02/12/20 02/12/20 02/12/20 06:59 14:59 22:59 Intake Total 1379.217 / 2278.571 513.767 / 513.767 602.458 / 1116.225 Output Total 800 / 1350 50 / 50 500 / 550 Balance 579.217 / 928.571 463.767 / 463.767 102.458 / 566.225 Weight last 48 hrs Weight 121 lb 12.8 oz Physical Exam Narrative: EXAM NARRATIVE: General: Sedated and intubated. No apparent distress. Heart: Tachycardia with regular rate. No murmurs. Lungs: Patient is currently intubated. Moderate diffuse wheezes. Diffuse rhonchi. Decreased air entry on the right. Abdomen: No significant hepatosplenomegaly. No significant pain. No rebound tenderness noted. Extremities: No edema. Urinary Catheter Management^: Dickey: Cath Placed During This Visit: yes Reason for Continuing Indwelling Catheter: Accurate Measurement of Urinary Output in Critically Ill Patients Urinary Catheter Date of Insertion: 02/10/20 Urinary Catheter Time of Insertion: 07:15 Data : 02/13/20 05:00 02/13/20 05:00 Micro: Microbiology 02/11/20 12:15 Sputum Culture - Preliminary Sputum - Endotracheal Tube Aspirate A&P Additional A&P Information 1. Hypoxia with respiratory failure -the patient is currently intubated and this is being managed by pulmonology. The patient is on 10 of PEEP and 100% FiO2. I appreciate pulmonology's assistance with this patient. The patient overall has significant resistance and his chances for being extubated are low. 2. Metastatic lung cancer -the patient has metastatic lung cancer in both lungs and received chemo and radiation treatment in October. The patient sees Dr. Sibley for oncology. The patient saw Dr. Sibley in mid January and he recommended no further chemotherapy until his lungs are improved. I do not feel that the patient's overall status will improve to be able to tolerate chemotherapy in the future. 3. Pneumonia with sepsis-the patient is currently on Bactrim, imipenem, Vancomycin and voriconazole. Chest x-ray appears to be relatively unchanged. Viral and fungal cultures are pending. I am quite concerned that the patient's white blood cell count has continued to elevate and there are signs of multiorgan dysfunction with INR significantly increasing. The patient now has hematuria. We will continue with broad-spectrum antibiotics for treatment, however I am concerned that the patient will continue to decline despite maximal therapies. The patient's son stated that per his father's wishes they will proceed with chest compressions if his heart were to stop. He stated to Dr. Monahan that if he comes back from this, that they may consider changing his status to comfort care if declining again. 4. History of pulmonary embolism -the patient is on Eliquis for prophylaxis. This may need to be stopped if his bleeding persists. 5. Anxiety -the patient is currently sedated. 6. Constipation -resolved 7. Atrial flutter with RVR -Dr. Angela has evaluated the patient and he is currently on digoxin, amiodarone and metoprolol. He is now in sinus rhythm with a heart rate in the 100s. 8. Diarrhea -resolved at this time. 9. Prophylaxis -the patient has been on Eliquis, however this was stopped due to hematuria. We will likely need to start Lovenox. Attestations Medical Necessity Statement*: The patient continues to be critically ill and continues need ICU care. Critical Care Time: Critical Care Time (min): 45 Coding Level of Care Code Acute Admissions Gate Attendant for Padmini Killian
--- NOTE | 2020-02-12 21:52 | PC.NURSE ---
HR/O2 Upon change of shift, patients oxygen began to decrease to high 70s and HR increased to 140-150s. Patient sustained a rate of about 140-150 until about 2100. His heart rate has came down between 100-110, and oxygen is currently 91% on 100% FiO2. Day shift nurse called Dr. Spain, left message.
--- NOTE | 2020-02-12 21:53 | PC.NURSE ---
PHYSICIAN CALLED Dr. Spain returned call to night manager nurse. Discussed patients increased heart rate and decreased oxygen. Informed him of Dr. Monahan increasing respiratory rate and PEEP on ventilator settings. Physician was notified of no morning labs ordered and ordered labs. Physician also came down to see patient while in house and patients oxygen had increased to 91% and heart rate had decreased to 100-110 when physician rounded.
--- NOTE | 2020-02-12 22:07 | PC.NURSE ---
SON CALLED Patients sonMilad, called for an update. Given update on fathers condition and of little change. Will call son if anything changes.
[2020-02-13] VITALS (37 sets, daily range): BP systolic 94–116; BP diastolic 61–78; PULSE 104–132; RESP 21–35; TEMP 36.6–37.3; O2SAT 80–96
--- NOTE | 2020-02-13 02:37 | PC.NURSE ---
VERSED GTT Patient on 4 mg/hour of versed at change of shift, and was just titrated to 3 mg/hour per randall scale.
[2020-02-13] MEDS: levalbuterol 1.25 mg/3 mL Neb INHALATION ×4 (03:00→20:44)
[2020-02-13 04:16] LABS: INR 1.62 (0.8-1.2)
[2020-02-13 04:47] LABS: Alanine Aminotransferase 31 U/L (0-41); Albumin Level 2.7 g/dL (3.5-5.2); Alkaline Phosphatase 188 IU/L (40-130); Anion Gap 10.2 (5-19); Aspartate Amino Transferase 18 U/L (0-40); Blood Urea Nitrogen 28 mg/dL (8-23); Calcium 8.5 mg/dL (8.5-10.5); Carbon Dioxide 31 mmol/L (22-29); Chloride 91 mmol/L (98-107); Globulin 2.5 g/dL (1.3-4.6); Glomerular Filtration Rate 95.6 mL/min (90-130); Glucose 177 mg/dL (65-115); Magnesium 2.4 mg/dL (1.7-2.3); NT Pro B Type Natriuretic Pept 2461 pg/mL (0-125); Osmolality Calculated 276 mOsm/kg (285-295); Potassium 4.2 mmol/L (3.5-5.1); Sodium 128 mmol/L (136-145); Total Bilirubin 0.2 mg/dL (0.15-1.2); Total Protein 5.2 g/dL (6.6-8.7)
[2020-02-13 05:14] LABS: Basophils # 0.1 10^3/uL (0.0-0.1); Basophils % 0.1 %; Hematocrit 27.9 % (42.0-52.0); Hemoglobin 8.5 g/dL (11.7-16.6); Lymphocytes # 0.2 10^3/uL (0.8-4.8); Lymphocytes % 0.7 %; Mean Corpuscular HGB Conc 30.5 g/dL (30.0-36.0); Mean Corpuscular Hemoglobin 29.7 pg (28.0-34.0); Mean Corpuscular Volume 97.6 fL (80-94); Mean Platelet Volume 10.1 fL (7.4-10.4); Monocytes # 0.8 10^3/uL (0.2-0.9); Monocytes % 2.2 %; Neutrophils # 32.65 10^3/uL (1.8-7.7); Nucleated Red Blood Cells % 0 %; Platelet Count 281 10^3/cmm (130-400); Red Blood Count 2.86 10^6/uL (4.1-5.3); Red Cell Distribution Width 16.9 % (12.1-15.1)
[2020-02-13 05:31] LABS: White Blood Count 34.4 10^3/uL (4.0-10.0)
[2020-02-13 05:38] LABS: INR 1.58 (0.8-1.2)
[2020-02-13] MEDS: sucralfate 1 gm/10 mL Oral Liq UDC PO ×4 (05:38→20:46)
[2020-02-13] MEDS: propofol 1,000 MG/100 ML INJ 8.2 MG IV (06:07)
[2020-02-13 06:16] LABS: Alanine Aminotransferase 32 U/L (0-41); Albumin Level 2.9 g/dL (3.5-5.2); Alkaline Phosphatase 192 IU/L (40-130); Anion Gap 10.4 (5-19); Aspartate Amino Transferase 19 U/L (0-40); Blood Urea Nitrogen 29 mg/dL (8-23); Calcium 8.6 mg/dL (8.5-10.5); Carbon Dioxide 30 mmol/L (22-29); Chloride 92 mmol/L (98-107); Globulin 2.6 g/dL (1.3-4.6); Glomerular Filtration Rate 95.6 mL/min (90-130); Glucose 157 mg/dL (65-115); Magnesium 2.5 mg/dL (1.7-2.3); NT Pro B Type Natriuretic Pept 2498 pg/mL (0-125); Osmolality Calculated 275 mOsm/kg (285-295); Potassium 4.4 mmol/L (3.5-5.1); Sodium 128 mmol/L (136-145); Total Bilirubin 0.2 mg/dL (0.15-1.2); Total Protein 5.5 g/dL (6.6-8.7)
[2020-02-13] MEDS: FUROsemide 10 mg/mL SDV 4mL 40 MG IVP (06:34)
--- NOTE | 2020-02-13 07:09 | PC.NURSE ---
LEVOPHED GTT Patient has had steady trend of blood pressures this entire shift without a MAP below 65. Levophed titrated off throughout the night according to BP trend. Currently paused and patients BP is 115/70.
--- NOTE | 2020-02-13 07:10 | PC.NURSE ---
SHIFT SUMMARY Patient has had eventful night as far as heart rate and oxygen. At about 0300 patients heart rate began to increase and oxygen began to decrease once again. Lowest oxygen of 76% this shift and heart rate as high as 150. Patient remains on 100 FiO2, RR of 24, PEEP of 10. Urine output of 750 mL and one time 40 mg dose IV lasix just given. Highest temperature of 99.5. See levophed and versed notes. Patient currently on 15 mcg/kg/min of propofol and 125 mcg/hour of fentanyl. Patients breathing effort has continued to worsen with notable accessory muscle use and abdominal breathing. Morning labs drawn and lab called with critical on WBC and H&H. Hemoglobin of 5.6 and hematocrit of 18.6. Lab called to talk about result since that was significant drop since last draw. eyewear manufacturing tech stated that specimen appeared diluted, so labs redrawn. H & H not critically low with redraw and WBC of 34.3. Dr. Spain was called to notify of critical result and ordered 1 unit PRBC, but not given due to redraw results.
[2020-02-13] MEDS: budesonide 0.5 mg/2 mL Neb INHALATION ×2 (08:10→20:44)
[2020-02-13] MEDS: morphine 4 mg/mL SDV 1 mL 2 MG IVP (08:19)
[2020-02-13] MEDS: metoclopramide 5 mg/mL SDV 2 mL IVP ×2 (08:21→16:53)
[2020-02-13 08:23] LABS: ABG PCO2 63.7 mmHg (35-45); ABG PH Result 7.29 (7.35-7.45); Alveolar-Arterial Oxygen Gradi 76.3 mmHg (5-10); Arterial Blood Gas Hematocrit 26.7 % (42-52); Base Excess ABG 3.2 mmol/L (-2.0-2.0); Blood Gas Allen Test Pos; Blood Gas Sample Site Brachial, left; Blood Gas Sample Type Arterial; Carboxyhemoglobin 1.7 %THgb (0.4-20.1); HCO3 ABG 30.7 mmol/L (22-26); HGB O2 Sat 86.9 % (95-100); Ionized Calcium Level - ABG 1.2 mmol/L (1.1-1.4); Methemoglobin 0.6 % (0.4-1.5); Oxygen Device VENT; PO2 ABG 58.9 mmHg (80.0-100.0); Total Hemoglobin 8.7 g/dL (14-18)
--- NOTE | 2020-02-13 08:55 | PC.NURSE ---
Milad, son called, updated on father's condition.
[2020-02-13] MEDS: ferrous sulfate EC 325 mg Tablet PO ×2 (10:11→18:10)
[2020-02-13] MEDS: sertraline 100 mg Tablet PO (10:11)
[2020-02-13] MEDS: multivitamin therapeutic Tablet 1 TAB PO (10:11)
[2020-02-13] MEDS: guaiFENesin 600 mg Tablet 1200 MG PO ×2 (10:11→18:09)
[2020-02-13] MEDS: apixaban 5 mg Tablet PO ×2 (10:11→20:46)
[2020-02-13] MEDS: pantoprazole 40 mg SDV IVP (10:12)
[2020-02-13] MEDS: amiodarone 200 mg Tablet PO ×2 (10:12→20:46)
[2020-02-13] MEDS: benzonatate 100 mg Capsule PO ×3 (10:12→20:46)
--- NOTE | 2020-02-13 10:15 | XR_ITS ---
WS: [id number] PORTABLE CHEST HISTORY: pneumonia and ET tube placement COMPARISON: 02/11/2020 Endotracheal tube and nasogastric tubes remain in good position. The proximal port of the NG tube is at the GE junction. LEFT subclavian Port-A-Cath with tip in the distal SVC. Mild elevation of the RIGHT hemidiaphragm. There is continued small layering RIGHT pleural effusion. Scattered opacifications bilaterally. The reticular nodular interstitial thickening throughout the LE FT lung is not changed. Scattered opacifications throughout the aerated RIGHT lung are also stable. N o pneumothorax. Cardiac size: Normal. Mediastinum/Aorta: Mild atherosclerosis aorta. No osseous abnormality seen. Prior cholecystectomy. XR/XR chest 1V portable [id number] IMPRESSION: 1. Endotracheal and nasogastric tubes remain in good position. 2. Continued bilateral reticular nodular interstitial lung disease without pro gression or improvement. 3. No pneumothorax.
[2020-02-13] MEDS: vancomycin 1,000 MG in sodium chloride 0.9% 250 ML 250 MG IV (12:26)
[2020-02-13] MEDS: lidocaine 1% INJ 20 mL INJECTION (13:26)
--- NOTE | 2020-02-13 15:23 | P.OP_ITS ---
Operative Report Date of procedure: February 13, 2020 Procedure: Bronchoscopy with BAL Pre-Operative Diagnosis: Squamous cell carcinoma radiation pneumonitis/? Lymphatic spread with possible pneumonia Post-Operative Diagnosis: Same Indication: To obtain BAL samples for cell differential and send for cultures and PCP PCR as patient is ventilated at 100% FiO2 and PEEP 12 but no improvement in his respiratory status Anesthesia: Already on fentanyl 150 drip and propofol 10 drip for sedation, given 2 mg Versed, 1% lidocaine instilled into the trachea 6 mL Pre-procedure Evaluation: Patient was evaluated clinically and ancillary testing reviewed. The risk of having active MTB infection is very low in my clinical judgement. ASA: 4 Malampati score: unable to evaluate due to presence of endotracheal tube Consent: Consents were obtained from [facility] and placed in the chart. Everything explained in detail to [facility] regarding the procedure technique, possible complications, in this patient's case desaturation and possible cardiac arrest which might need resuscitation. He verbalized understanding and agreed to proceed with the procedure and gave consent as evidenced by the RN taking care of the patient. Procedure Details: Time out was performed by the procedure team and nursing staff. Patient was already 90% FiO2 and PEEP of 12 and saturating 92% for procedure. FiO2 increased to 100% and PEEP decreased to 8 before procedure. The bronchoscope was introduced through the ETT. A bronchoscopic airway exam was performed to evaluate the visible tracheobronchial tree to the segmental level. The right bronchial tree was assessed to include the right mainstem bronchus, RBI, and RUL/RML/RLL bronchi to the segmental level. The left bronchial tree was assessed to include the left mainstem bronchus, LUCAS, Lingula, and LLL bronchi to the segmental level. The bronchoscope was then removed and the procedure terminated. Summary of Significant Findings: Distal trachea and sharp magaly noticed with no abnormality. Endobronchial lesions noted on right upper lobe. Rest of the right side segments subsegments mucosa appeared normal with no endobronchial lesions, no bleeding or mucus secretions noted. Left segment and subsegments visualized with normal mucosa with no obvious endobronchial abnormalities, no thick mucus secretions or blood. BAL aspirated from left lower lobe yielded a bloody aliquot suspicious for DAH. Second aliquot obtained from same subsegment was also bloody. Patient started desaturating and his saturations were about 83% and procedure terminated. Post bronchoscopy vitals improved saturation to prebronchoscopy reading of 92% while on vent 100% FiO2 and PEEP of 12. Vitals remained stable throughout the procedure.. Estimated Blood Loss: 15 to 20 mL Specimens: BAL taken from left lower lobe sent for microbiology culture and Gram stain, fungal cultures, BAL for PCP PCR, cell count and differential, cytology Complications: after taking 2 aliquots desaturated to 83%. Terminated the procedure and saturations went back up to 90%. Disposition: Remains critically ill and in ICU Jhon Monahan MD Pulmonary critical Care Medicine Pre-op Diagnosis: Lung cancer
--- NOTE | 2020-02-13 15:39 | PM.PN ---
Subjective Subjective: Interval history: Clinical remains same. ABG showed some improvement in pH from 7.21 to 7.29 and CO2 79 to 62. Satu Increase PEEP to 12 and saturation FiO2 90% and patient saturating at 92 to 93%. Chest x-ray remains unchanged with bilateral interstitial infiltrates likely ARDS/DAH/? Lymphatic spread of underlying lung cancer -Bronchoscopy performed and BAL sent for various cultures, cell count and differential, cytology Hematuria resolved after stopping Eliquis Medications: Reviewed: Yes Medication Review Details: Current Medications Alprazolam (Xanax) 0.5 mg PO BID PRN PRN Reason: ANXIETY Last Admin: 02/05/20 21:09 Dose: 0.5 mg Documented by: Amiodarone HCl (Cordarone) 400 mg PO Q12H [facility] Last Admin: 02/06/20 09:19 Dose: 400 mg Documented by: Apixaban (Eliquis) 5 mg PO Q12H [facility] Last Admin: 02/06/20 09:20 Dose: 5 mg Documented by: Benzonatate (Tessalon Pearls) 100 mg PO TID [facility] Last Admin: 02/06/20 09:19 Dose: 100 mg Documented by: Budesonide (Pulmicort) 0.5 mg INHALATION BID [facility] Last Admin: 01/31/20 19:49 Dose: 0.5 mg Documented by: Digoxin (Lanoxin) 125 mcg PO DAILY [facility] Last Admin: 02/06/20 09:19 Dose: 125 mcg Documented by: Ferrous Sulfate (Ferrous Sulfate) 325 mg PO BID [facility] Last Admin: 02/06/20 09:20 Dose: 325 mg Documented by: Guaifenesin (Mucinex) 1,200 mg PO BID [facility] Last Admin: 02/06/20 09:19 Dose: 1,200 mg Documented by: Amiodarone HCl 900 mg/Dextrose/ IV Miscellaneous Supplies 518 mls @ 0 mls/hr IV .Q0M [facility]; Protocol Last Titration: 02/04/20 01:10 Dose: 0 mg/min, 0 mls/hr Documented by: Imipenem/Cilastatin Sodium 250 (mg/ Sodium Chloride) 100 mls @ 200 mls/hr IV Q6H [facility]; Protocol Last Admin: 02/06/20 12:38 Dose: 100 mls/hr Documented by: Ipratropium [place] (Atrovent Neb) 0.5 mg INHALATION Q6H.RESPIRATORY [facility] Last Admin: 02/06/20 08:47 Dose: 0.5 mg Documented by: Levalbuterol HCl (Xopenex) 1.25 mg INHALATION Q6H.RESPIRATORY [facility] Last Admin: 02/06/20 08:46 Dose: 1.25 mg Documented by: Magnesium Hydroxide (Milk Of Magnesia) 30 ml PO DAILY PRN PRN Reason: Constipation Methylprednisolone Sodium Succinate (Solu-Medrol) 60 mg IVP Q8H [facility] Last Admin: 02/06/20 05:16 Dose: 60 mg Documented by: Metoclopramide HCl (Reglan) 5 mg IVP Q8H [facility] Last Admin: 02/02/20 18:40 Dose: 5 mg Documented by: Metoprolol Tartrate (Lopressor) 25 mg PO TID [facility] Last Admin: 02/06/20 09:19 Dose: 25 mg Documented by: Metoprolol Tartrate (Metoprolol Tartrate) 5 mg IV Q4H PRN PRN Reason: tachycardia for HR>120 Multivitamins Therapeutic (Multivitamin Tab) 1 tab PO DAILY [facility] Last Admin: 02/02/20 07:56 Dose: 1 tab Documented by: Ondansetron HCl (Zofran) 8 mg PO Q8H PRN PRN Reason: Nausea Oxycodone/Acetaminophen (Percocet 5-325 Mg) 1 - 2 tab PO Q4H PRN PRN Reason: Moderate To Severe Pain Last Admin: 02/05/20 20:26 Dose: 1 tab Documented by: Pantoprazole Sodium (Protonix) 40 mg PO DAILY [facility] Last Admin: 02/06/20 09:19 Dose: 40 mg Documented by: Fluticasone/Salmeterol (Advair Diskus 500-50) 1 puff INHALATION BID.RESPIRATORY [facility] Last Admin: 02/02/20 20:39 Dose: Not Given Documented by: Senna/Docusate Sodium (Senna-S) 1 tab PO BID PRN PRN Reason: Constipation Sertraline HCl (Zoloft) 100 mg PO DAILY [facility] Last Admin: 02/06/20 09:20 Dose: 100 mg Documented by: Sucralfate (Carafate Oral Liq) 1 gm PO AC&BEDTIME [facility] Last Admin: 02/06/20 10:49 Dose: 1 gm Documented by: Tamsulosin HCl (Flomax) 0.4 mg PO BEDTIME [facility] Last Admin: 02/05/20 20:26 Dose: 0.4 mg Documented by: Tiotropium [place] (Spiriva) 18 mcg INHALATION DAILY.RESPIRATORY [facility] Last Admin: 02/06/20 08:46 Dose: Not Given Documented by: Zolpidem Tartrate (Ambien) 5 mg PO BEDTIME PRN PRN Reason: SLEEP Last Admin: 02/05/20 21:02 Dose: 5 mg Documented by: Vitals/I&O/Wt Last Vital Signs Temp 98.5 F 02/13/20 12:00 Pulse 111 H 02/13/20 14:44 Resp 26 H 02/13/20 14:35 BP 112/77 02/13/20 14:00 Pulse Ox 92 02/13/20 14:44 02/13/20 02/13/20 02/13/20 06:59 14:59 22:59 Intake Total 1161.367 / 2337.592 461.460 / 461.460 0 / 461.460 Output Total 750 / 1300 Balance 411.367 / 1037.592 461.460 / 461.460 0 / 461.460 Weight last 48 hrs Weight 128 lb 4.8 oz Weight 121 lb 12.8 oz Physical Exam Narrative: EXAM NARRATIVE: General: Intubated and connected to ventilator, sedated HEENT: conj clear, PERRL, mmm, Neck: supple, no meningismus Heme: no cervical LAP Pulmonary: Significant end expiratory wheeze Cardiovascular: rrr, nl s1s2, no mrg Abdomen: soft, nt, nd, no r/g, bs+ Extremities: pulses +, no edema, no c/c : no CVA tenderness Skin: intact, no rash MSK: no back or neck pain Neurologic: Sedated Urinary Catheter Management^: Dickey: Cath Placed During This Visit: yes Reason for Continuing Indwelling Catheter: Accurate Measurement of Urinary Output in Critically Ill Patients Urinary Catheter Date of Insertion: 02/10/20 Urinary Catheter Time of Insertion: 07:15 Data : 02/13/20 05:00 02/13/20 05:00 Micro: Microbiology 02/11/20 12:15 Sputum Culture - Final Sputum - Endotracheal Tube Aspirate A&P Assessment and plan (1) Respiratory failure with hypoxia: Status: Acute Qualifiers: Chronicity: acute on chronic Qualified Code(s): J96.21 - Acute and chronic respiratory failure with hypoxia (2) Atrial flutter with rapid ventricular response: Status: Acute (3) Pneumonitis: Status: Acute (4) Pneumonia: Status: Acute Qualifiers: Laterality: left Lung location: lower lobe of lung Pneumonia type: due to unspecified organism Qualified Code(s): J18.9 - Pneumonia, unspecified organism (5) Squamous cell carcinoma of lung, stage III: Status: Acute Qualifiers: Laterality: right Qualified Code(s): C34.91 - Malignant neoplasm of unspecified part of right bronchus or lung (6) Centrilobular emphysema: Status: Acute (7) ARDS (adult respiratory distress syndrome): Status: Acute #Acute hypoxic respiratory failure/ARDS likely due to underlying stage IIIb squamous cell lung carcinoma-ultifactorial [id number] pneumonia, recent history of PCP pneumonia,? WBC, radiation pneumonitis, diffuse alveolar hemorrhage #Worsening leukocytosis - -Currently Intubated and connected to ventilator on pressure control mode with PIP 30 pulling tidal volumes 250-350 with high plateau pressures -ABG 7.20 9/63/58/30/80 9% 100% FiO2 -Sedated with fentanyl, Versed and propofol -CT chest on admission ruled out PE, but showed heterogeneous consolidation in right upper lobe similar to prior CT in November, air-fluid levels in consolidated areas representing necrosis or infection. Multifocal bilateral pulmonary infiltrates and groundglass opacities worsened. -COVID-19 PCR negative, urine Legionella and bacterial antigens negative, MRSA nares negative, blood cultures so far negative; - TB QuantiFERON negative, -On IV Solu-Medrol and scheduled nebulizations with Xopenex and Atrovent for COPD -We will DC caspofungin as galactomannan negative normal blood cultures showed any fungal infection -Bronchoscopy performed 02/13/2020, BAL was bloody suspicious for DAH, -BAL cultures, fungal cultures, cell count and differential, cytology, PCP DNR pending -Elevated BNP given Lasix 40 mg 1 dose monitor input output -repeat blood cultures, urine cultures sputum cultures sent in view of worsening leukocytosis- negative so far - -Meanwhile will treat for underlying possible bacterial pneumonia -Agree with antibiotic coverage vancomycin, imipenem, Bactrim, -Elevated BNP and last echo October 2019 reported as possibly normal LV size and ejection fraction with possible stenotic aortic valve negative so far negative so far -Received chemoradiation on October 06, 2019 with weekly carboplatin/Taxol and completed radiation therapy on November 19, 2019. He could not get recommended weekly carboplatin/Taxol because of on and off sickness. Last dose of weekly carboplatin/Taxol was given on November 13, 2019. -In the context of recent radiation-cannot rule out underlying radiation pneumonitis-however patient is already covered with steroids Patient is very critical with extremely poor prognosis given his underlying lung carcinoma with possible lymphangitic spread. very poor prognosis Recommendations conveyed to Dr. Spain -hospitalist covering the patient Attestations Medical Necessity Statement*: Critically ill still on ventilator for acute hypoxemic respiratory failure likely secondary to ARDS/DAH/? Lymphatic spread of lung adenocarcinoma/pneumonia Time Spent in Patient Care: Greater than 35 minutes (>than 50% of time spent in counselling and/or direct pt care on unit). Critical Care Time: Critical Care Time (min): 45 Coding Level of Care Code Acute Mash Grinder for [facility] Fwd Diagnoses Respiratory failure with hypoxia J96.21 Chronicity: acute on chronic Atrial flutter with rapid ventricular response I48.92 Pneumonitis J18.9 Pneumonia J18.9 Laterality: left Lung location: lower lobe of lung Pneumonia type: due to unspecified organism Squamous cell carcinoma of lung, stage III C34.91 Laterality: right Centrilobular emphysema J43.2 ARDS (adult respiratory distress syndrome) J80
--- NOTE | 2020-02-13 16:45 | PM.PN ---
Subjective Subjective: Interval history: The patient continues to be on the ventilator and his overall saturation is staying in the low 90s and upper 80s. Vent settings have been changed to 12 of PEEP with 90% FiO2. The patient is currently off of pressors. Heart rate has decreased down into the 110 range. Vitals/I&O/Wt Last Vital Signs Temp 98.5 F 02/13/20 12:00 Pulse 112 H 02/13/20 16:07 Resp 25 H 02/13/20 16:07 BP 110/70 02/13/20 16:07 Pulse Ox 90 02/13/20 16:07 02/13/20 02/13/20 02/13/20 06:59 14:59 22:59 Intake Total 1161.367 / 2337.592 461.460 / 461.460 0 / 461.460 Output Total 750 / 1300 Balance 411.367 / 1037.592 461.460 / 461.460 0 / 461.460 Weight last 48 hrs Weight 128 lb 4.8 oz Weight 121 lb 12.8 oz Physical Exam Narrative: EXAM NARRATIVE: General: Sedated and intubated. No apparent distress. Heart: Tachycardia with regular rate. No murmurs. Lungs: Patient is currently intubated. Moderate diffuse wheezes. Diffuse rhonchi. Decreased air entry on the right. Abdomen: No significant hepatosplenomegaly. No significant pain. No rebound tenderness noted. Extremities: No edema. Urinary Catheter Management^: Dickey: Cath Placed During This Visit: yes Reason for Continuing Indwelling Catheter: Accurate Measurement of Urinary Output in Critically Ill Patients Urinary Catheter Date of Insertion: 02/10/20 Urinary Catheter Time of Insertion: 07:15 Data : 02/13/20 05:00 02/13/20 05:00 Micro: Microbiology 02/11/20 12:15 Sputum Culture - Final Sputum - Endotracheal Tube Aspirate A&P Additional A&P Information 1. Hypoxia with respiratory failure -the patient is currently intubated and this is being managed by pulmonology. The patient is on 12 of PEEP and 90% FiO2 currently. I appreciate pulmonology's assistance with this patient. The patient overall has significant resistance and his chances for being extubated are low. Bronchoscopy was done this afternoon and there were no signs of mucous plugging present. Bronchial washings were done and sent for culture. 2. Metastatic lung cancer -the patient has metastatic lung cancer in both lungs and received chemo and radiation treatment in October. The patient sees Dr. Sibley for oncology. The patient saw Dr. iSbley in mid January and he recommended no further chemotherapy until his lungs are improved. I do not feel that the patient's overall status will improve to be able to tolerate chemotherapy in the future. 3. Pneumonia with sepsis-the patient is currently on Bactrim, imipenem and vancomycin. Voriconazole has been stopped. Chest x-ray appears to be relatively unchanged. Viral cultures are pending. The patient's white blood cell count is gradually decreasing. We will continue with broad-spectrum antibiotics for treatment, however I am concerned that the patient will continue to decline despite maximal therapies. The patient's son stated that per his father's wishes they will proceed with chest compressions if his heart were to stop. He stated to Dr. Monahan that if he comes back from this, that they may consider changing his status to comfort care if declining again. 4. History of pulmonary embolism -hematuria has improved. Will need to start heparin for prophylaxis. 5. Anxiety -the patient is currently sedated. 6. Constipation -resolved 7. Atrial flutter with RVR -Dr. Angela has evaluated the patient and he is currently on digoxin, amiodarone. Metoprolol is being held due to borderline blood pressures. He is now in sinus rhythm with a heart rate in the 100s. 8. Diarrhea -resolved at this time. 9. Prophylaxis -the patient had been on Eliquis, however this was stopped due to hematuria. We will likely need to start heparin. Attestations Medical Necessity Statement*: The patient will be here for continued management as he is critically ill and ventilated. Critical Care Time: Critical Care Time (min): 25 Coding Level of Care Code Acute Organic Extractions Technician for Padmin[facility] Killian
[2020-02-13] MEDS: propofol 1,000 MG/100 ML INJ 9.8 MG IV (16:59)
[2020-02-13 17:05] LABS: Apprearance, Bronch Wash Bloody (CLEAR); Color, Bronc Wash Red
[2020-02-13 17:06] LABS: PATH Referral Yes
[2020-02-13 17:12] LABS: Total Cells Counted Bronch 300
--- NOTE | 2020-02-13 18:20 | PC.NURSE ---
All care and charting provided by SN Keyshawn ( also MARGOTH) supervised by this nurse.
--- NOTE | 2020-02-13 19:41 | PC.NURSE ---
Shift summary: Pt remains sedated and intubated. Vent on AC, FIO2 decreased to 90%. Pt has poor tidal volumes, doesn't reach 300. [facility] washings collected today by Dr Monahan. Dr Monahan said to keep pt well sedate, it is easier on the pt. He remains on Fentanyl, increased back to 150mcg/mn, Propofol increased to 40mg/kg/min. Versed off, but available should pt need it for comfort. Urine output 450 ml.
[2020-02-13] MEDS: propofol 1,000 MG/100 ML INJ 13.1 MG IV (22:41)
[2020-02-14] VITALS (70 sets, daily range): BP systolic 55–149; BP diastolic 44–93; PULSE 0–132; RESP 24–55; TEMP 36.2–37.2; O2SAT 78–98
[2020-02-14] MEDS: metoclopramide 5 mg/mL SDV 2 mL IVP ×3 (00:17→16:01)
[2020-02-14] MEDS: levalbuterol 1.25 mg/3 mL Neb INHALATION ×3 (02:39→14:19)
--- NOTE | 2020-02-14 04:14 | PC.NURSE ---
O2 desat to 84 85, RT increased FIO2 to 100%, O2 sat 96 at this time
[2020-02-14] MEDS: sucralfate 1 gm/10 mL Oral Liq UDC PO ×3 (06:01→18:14)
--- NOTE | 2020-02-14 06:16 | NUR.SHIFT ---
fairly uneventful night, O2 sat decreased to 85, RT increased Fio2 to 100%, currently at 95%, intermittent labored see saw respirations which were reported from previous shift, opened eyes and looked at this nurse briefly during bed bath, withdrawals from pain, supine 45 degrees, call light within reach
[2020-02-14] MEDS: propofol 1,000 MG/100 ML INJ 13.1 MG IV ×2 (06:30→16:01)
--- NOTE | 2020-02-14 07:42 | XRR_ITS ---
PROCEDURE INFORMATION: Exam: XR Chest, 1 View Exam date and time: 02/14/2020 7:55 AM Age: 69 years old Clinical indication: Shortness of breath; Additional info: SOB TECHNIQUE: Imaging protocol: XR of the chest Views: 1 view. COMPARISON: CR XR chest 1V portable [id number] 02/13/2020 10:24 AM FINDINGS: Tubes, catheters and devices: Endotracheal tube, central venous catheter, and feeding tube again demonstrated. The endotracheal tube terminates 4.2 cm above the magaly. Lungs: Stable interstitial/airspace disease. Poorly defined density overlying the right suprahilar region. Pleural space: Pleural No cardiomegaly. Diaphragm: Asymmetric elevation of the right hemidiaphragm. Bones/joints: Osteopenia and degenerative change. Cervical spine fusion. When correlating with the previous study, no significant interval changes are present. XR/XR chest 1V portable [id number] IMPRESSION: Stable appearance of the chest, not significantly changed from 02/13/2020 .
[2020-02-14 08:01] LABS: ABG PH Result 7.21 (7.35-7.45); Base Excess ABG 0.3 mmol/L (-2.0-2.0); Blood Gas Allen Test Pos; Blood Gas Operator Identificat CAK; Blood Gas Sample Site Radial, left; Blood Gas Sample Type Arterial; HCO3 ABG 28.8 mmol/L (22-26); Oxygen Device VENT; PO2 ABG 53.9 mmHg (80.0-100.0)
[2020-02-14 08:02] LABS: ABG PCO2 71.6 mmHg (35-45)
[2020-02-14 08:14] LABS: Basophils # 0.1 10^3/uL (0.0-0.1); Basophils % 0.1 %; Eosinophils % 0.1 %; Hematocrit 23.3 % (42.0-52.0); Hemoglobin 7.2 g/dL (11.7-16.6); Lymphocytes # 0.3 10^3/uL (0.8-4.8); Lymphocytes % 0.6 %; Mean Corpuscular HGB Conc 30.9 g/dL (30.0-36.0); Mean Corpuscular Hemoglobin 31.2 pg (28.0-34.0); Mean Corpuscular Volume 100.9 fL (80-94); Mean Platelet Volume 10.6 fL (7.4-10.4); Monocytes % 2.3 %; Neutrophils # 39.56 10^3/uL (1.8-7.7); Neutrophils % 93.9 %; Nucleated Red Blood Cells % 0.1 %; Platelet Count 231 10^3/cmm (130-400); Red Blood Count 2.31 10^6/uL (4.1-5.3); Red Cell Distribution Width 16.8 % (12.1-15.1)
[2020-02-14] MEDS: budesonide 0.5 mg/2 mL Neb INHALATION (08:32)
[2020-02-14 08:33] LABS: White Blood Count 42.2 10^3/uL (4.0-10.0)
[2020-02-14 08:40] LABS: Lactic Sepsis W/Reflex 1.3 mmol/L (0.5-2.2)
--- NOTE | 2020-02-14 08:40 | PC.NURSE ---
Agonal breathing noted. O2 sats at 87%
[2020-02-14 08:41] LABS: NT Pro B Type Natriuretic Pept 3460 pg/mL (0-125)
[2020-02-14 08:53] LABS: Alanine Aminotransferase 30 U/L (0-41); Albumin Level 2.6 g/dL (3.5-5.2); Alkaline Phosphatase 175 IU/L (40-130); Aspartate Amino Transferase 27 U/L (0-40); Blood Urea Nitrogen 46 mg/dL (8-23); C Reactive Protein 77.9 mg/L (0.0-4.9); Calcium 8.2 mg/dL (8.5-10.5); Carbon Dioxide 27 mmol/L (22-29); Chloride 91 mmol/L (98-107); Globulin 2.4 g/dL (1.3-4.6); Glomerular Filtration Rate 42.9 mL/min (90-130); Glucose 153 mg/dL (65-115); Magnesium 2.4 mg/dL (1.7-2.3); Osmolality Calculated 279 mOsm/kg (285-295); Phosphorus 3.1 mg/dL (2.5-4.5); Sodium 127 mmol/L (136-145); Total Bilirubin 0.2 mg/dL (0.15-1.2)
[2020-02-14] MEDS: ferrous sulfate EC 325 mg Tablet PO ×2 (09:03→18:14)
[2020-02-14] MEDS: benzonatate 100 mg Capsule PO ×2 (09:03→14:59)
[2020-02-14] MEDS: amiodarone 200 mg Tablet PO (09:03)
[2020-02-14] MEDS: apixaban 5 mg Tablet PO (09:03)
[2020-02-14] MEDS: guaiFENesin 600 mg Tablet 1200 MG PO ×2 (09:04→18:14)
[2020-02-14] MEDS: pantoprazole 40 mg SDV IVP (09:07)
[2020-02-14] MEDS: multivitamin therapeutic Tablet 1 TAB PO (09:07)
[2020-02-14] MEDS: sertraline 100 mg Tablet PO (09:07)
--- NOTE | 2020-02-14 09:21 | XRR_ITS ---
PROCEDURE INFORMATION: Exam: XR Abdomen, 1 View Exam date and time: 02/14/2020 10:58 AM Age: 69 years old Clinical indication: Constipation; Additional info: Toxic megacolon? TECHNIQUE: Imaging protocol: XR of the abdomen. Views: Frontal supine view of the abdomen. 1 View. COMPARISON: CT abdomen pelvis con [id number] 01/31/2020 3:51 PM FINDINGS: Lungs: Interstitial/airspace disease in the visualized left lung base. Diaphragm: Elevation of the right hemidiaphragm. Gastrointestinal tract: Improved gaseous dilatation of the stomach with feeding tube terminating in the proximal stomach. Prominent stool. Organs: Status post cholecystectomy. Bones/joints: Osteopenia and degenerative change. Vascular: vascular calcification. XR/XR KUB portable [id number] IMPRESSION: 1. Improved gaseous dilatation of the stomach with feeding tube terminating in the proximal stomach. 2. Additional findings as described above.
--- NOTE | 2020-02-14 09:33 | PC.SOCIAL ---
IMM Updated Updated pt's Son, via phone, Pg 2 IMM. No questions voiced. Signed, dated, & timed copy in chart.
[2020-02-14] MEDS: sodium chloride 0.9% 1,000 ML 75 ML IV (10:04)
[2020-02-14] MEDS: lactulose oral liq 20 gm/30 mL UDC PO (10:04)
--- NOTE | 2020-02-14 10:12 | PC.RESP ---
Dr. Monahan called of pt. status. he stated no new vent changes.
--- NOTE | 2020-02-14 10:15 | PC.NURSE ---
09 Granddaughter, Luana called to check on her grandfather's condition. Informed that pt was not doing as well as yesterday. WBC are elevated more. He is having difficulty breathing, agonal breaths. He remains sedated and on 100% Oxygen but is is still struggling to get breaths. His O2 sat are 87%. (While we were speaking the O2 sats dropped to 80%.) She requeted I call Milad. I then called Milad and informed him of higher WBC, lower Hgb, the doctor would like to give blood. He consented. I explained how hard pt is working to breath while on 100% oxygen and sedated. He was going to speak with his family. 1000: Pt' s sats dropped to 68%. Dr Bishop notified via telephone of low sats and pt's struggle to breath, the agonal breaths. Dr to speak with family. DANYA ordered. RT Gregg notifyiing Datar. Vent settings adjusted again.
[2020-02-14] MEDS: FUROsemide 10 mg/mL SDV 4mL 40 MG IVP (10:57)
[2020-02-14 11:08] LABS: Arterial Blood Gas Hematocrit 22.5 % (42-52); Base Excess ABG -1.3 mmol/L (-2.0-2.0); Blood Gas Allen Test Pos; Blood Gas Operator Identificat CAK; Blood Gas Sample Site Brachial, left; Blood Gas Sample Type Arterial; HCO3 ABG 28.3 mmol/L (22-26); Oxygen Device VENT; PO2 ABG 75.7 mmHg (80.0-100.0)
[2020-02-14 11:09] LABS: ABG PCO2 86.2 mmHg (35-45); ABG PH Result 7.13 (7.35-7.45)
[2020-02-14 11:48] LABS: Vancomycin Trough 18.6 ug/mL (10-15)
--- NOTE | 2020-02-14 11:51 | PC.CHAP ---
Pastoral Care Encounter/Spiritual Assessment Type of Contact [] Declined corporate director of pharmacy visit [] Patient/Family/Request visit [] Outpatient visit [] Follow-up visit [] Physician referral [] Code/Alert [] Routine visit [X] Staff referral [] Actively dying [] Patient sleeping [] Family support [] [] Out of room [] Palliative care [] [] Receiving care in room [] Pre-surgical visit [] Trauma [] Long length of stay [] ICU visit [] Other: Relational/Emotional Strength [] Patient feels connected with others/family/visitors/staff [] Distress [] Loneliness/isolation [] Abandonment Spirituality of Patient [] Person of Maru [] Attends Mormon of their Maru [] Believes in Prayer [] Reads Bible or Hinduism materials [] There are Spiritual issues to be addressed Geography Faculty Member Interventions [X] Prayer [] Active listening [] Non-anxious presence [] Spiritual/emotional support [] Crisis/trauma care [] Spiritual counseling [] Bereavement support [] Provided bereavement packet [] Provided Bible/devotional materials [] Provided toy/stuffed animal, coloring book to patient or family member [] Provided Communion [] Anointing/Jay [] Salvation [] Completed spiritual assessment [] Other: Impact on Illness or Injury [] Angry [] Fearful [] Anxious [] Often cries [] Exhaustion [] Unable to work [] Unable to attend jewish [] Unable to walk/stand [] Unable to read [] Unable to drive [] Unable to eat/drink [] Unable to sleep [] Unable to be with family [] Patient intubated [] Other: Summary: Pt's nurse asked that I pray over him. He is intubated and not doing well. Time spent with patient: 4 minutes
--- NOTE | 2020-02-14 12:15 | PM.PN ---
Subjective Subjective: Interval history: Patient had a bedside bronchoscopy by Dr. Monahan yesterday evening, this morning patient was examined, he remains on the ventilator, fentanyl, propofol, has agonal breathing, had hypotensive episodes overnight, had episodes of tachycardia and tachypnea this morning, ABG this morning shows a pH of 7.13, PCO2 86.2, PO2 of 75.7 on 100% FiO2, discussed with Dr. Monahan and respiratory therapy in detail, have changed ventilator mode to CMV, tidal volumes of 350, 100% FiO2, PEEP of 10, respiratory rate 24. White blood cell count up to 42.2, hemoglobin down to 7.2, creatinine up to 1.6 serum sodium 127. Urine output was 1300 cc per last shift. Unfortunately patient's prognosis is poor, status is critical, he is on maximal medical therapy at this point. Currently he has a high risk of morbidity and mortality. I am highly concerned for his risk of cardiac arrest, and morbidity associated, and the further treatment might be futile. I discussed the case in detail with patient's son, Milad, he tells me that it was his father's wish to remain full code, his father wanted all interventions, he says that if my father were to have cardiac arrest, continue chest compressions for 1 round, and then he will decide how far he would want us to go. Discussed risk and benefits, voiced understanding, all questions answered, agreed to proceed. Vitals/I&O/Wt Last Vital Signs Temp 97.2 F L 02/14/20 08:15 Pulse 112 H 02/14/20 10:30 Resp 35 H 02/14/20 12:06 BP 129/65 02/14/20 10:30 Pulse Ox 79 L 02/14/20 10:00 02/13/20 02/14/20 02/14/20 22:59 06:59 14:59 Intake Total 676.112 / 1137.572 665.625 / 1803.197 325.625 / 325.625 Output Total 650 / 650 250 / 900 Balance 26.112 / 487.572 415.625 / 903.197 325.625 / 325.625 Weight last 48 hrs Weight 58.604 kg Weight 58.196 kg Physical Exam Const: OTHER: Intubated, sedated, has agonal breathing HENMT: COMMON NORMALS: normocephalic HEAD & SCALP: normocephalic Chest: OTHER: Port in place Resp: AUSCULTATION: diminished lung sounds OTHER: Intubated, sedated, with agonal breathing, decreased breath sounds bilaterally Cardio: COMMON NORMALS: regular rhythm, S1 normal heart sound present and S2 normal heart sound present RATE: tachycardic RHYTHM: regular rhythm HEART SOUNDS: S1 normal heart sound present and S2 normal heart sound present GI: COMMON NORMALS: Normal to inspection, nondistended, normoactive bowel sounds present, Soft to palpation and No hepatosplenomegaly present PALPATION: Yes Soft to palpation and Yes No hepatosplenomegaly present : OTHER: Dickey catheter in place Neuro: OTHER: Intubated, sedated, does not follow neurologic exam Urinary Catheter Management^: Dickey: Cath Placed During This Visit: yes Reason for Continuing Indwelling Catheter: Accurate Measurement of Urinary Output in Critically Ill Patients Urinary Catheter Date of Insertion: 02/10/20 Urinary Catheter Time of Insertion: 07:15 Data : 02/14/20 08:05 02/14/20 08:05 Micro: Microbiology 02/13/20 13:36 Gram Stain - Final Lung Left Lower Lobe - #1 02/11/20 12:15 Sputum Culture - Final Sputum - Endotracheal Tube Aspirate A&P Assessment and plan (1) Hypoxia: Status: Acute (2) Acute respiratory distress: Status: Acute (3) Pneumonitis: Status: Acute (4) History of pulmonary embolism: Status: Acute (5) Metastatic lung cancer (metastasis from lung to other site): Status: Acute Qualifiers: Laterality: unspecified laterality Qualified Code(s): C34.90 - Malignant neoplasm of unspecified part of unspecified bronchus or lung (6) Atrial fibrillation with rapid ventricular response: Status: Acute (7) Physical deconditioning: Status: Acute (8) Anemia: Status: Acute Qualifiers: Anemia type: unspecified type Qualified Code(s): D64.9 - Anemia, unspecified (9) Nausea: Status: Acute Additional A&P Information 1. Acute hypoxic respiratory failure: Multifactorial related to COPD, acute respiratory distress syndrome, pneumonia, stage IIIb squamous cell carcinoma, radiation pneumonitis, recent history of PCP pneumonia - currently intubated, sedated with propofol and fentanyl -Ventilator settings: CMV, PEEP of 12, 350 tidal volume, increased respiratory rate at 30, monitor plateau pressures, avoid auto PEEP -ABG pH 7.13, PCO2 86.2, PO2 75.7 on 100% FiO2 -CT of the chest showed heterogeneous consolidation the right upper lobe similar to prior study, multifocal bilateral pulmonary infiltrates, -COVID-19 PCR negative, urine Legionella and bacterial antigens negative, MRSA nares negative, blood culture so far negative, TB QuantiFERON negative -On IV Solu-Medrol -On vancomycin, imipenem, Bactrim -Off antifungals -Xopenex Atrovent -Bronchoscopy on 02/13/2020, BAL was bloody suspicious for diffuse alveolar hemorrhage -Give 40 mg of Lasix today -Acute kidney injury creatinine 1.6 -Hyponatremia serum sodium 127, started on gentle IV hydration, will stop in the afternoon -Anticoagulated with Eliquis 5 mg twice daily -We will give 1 dose of lactulose -Given elevated white blood cell count, will start p.o. vancomycin for possible C. difficile, C. difficile studies in the past have been negative - on consult for pulmonary, appreciate help -Currently patient's prognosis is poor, status is critical, is a full code, patient's son Milad wants all intervention if patient goes into cardiac arrest, attempt CPR until breath says otherwise Atrial fibrillation: Continue amiodarone 200 mg twice daily Continue metoprolol 25 3 times daily Anticoagulation with Eliquis. Dysphagia diet currently n.p.o. Eliquis will help with DVT prophylaxis also. Protonix for PUD prophylaxis Attestations Medical Necessity Statement*: She requires hospitalization due to acute hypoxic respiratory failure Coding Level of Care Code Acute Sample Cutter for [facility] Diagnoses Hypoxia R09.02 Acute respiratory distress R06.03 Pneumonitis J18.9 History of pulmonary embolism Z86.711 Metastatic lung cancer (metastasis from lung to other site) C34.90 Laterality: unspecified laterality Atrial fibrillation with rapid ventricular response I48.91 Physical deconditioning R53.81 Anemia D64.9 Anemia type: unspecified type Nausea R11.0
[2020-02-14] MEDS: vancomycin 1,000 MG in sodium chloride 0.9% 250 ML 250 MG IV (12:55)
--- NOTE | 2020-02-14 13:00 | PC.NURSE ---
Addendum entered by Mercy Márquez RN 02/14/20 17:28: Dr Bishop stopped in unit to check on pt. Original Note: Leo, pharmacist notified of vanc trough of 18.6. LEvels below 20 are good. ok to give vanc IV.
--- NOTE | 2020-02-14 13:10 | PC.NURSE ---
Pt noted to still have work of breathing. The agonal breaths have slowed down. O2 sats 87-94%.
--- NOTE | 2020-02-14 13:44 | PC.NURSE ---
Blood transfusion began. Delay in transfusion related to need of another peripheral IV site.
[2020-02-14] MEDS: sodium chloride 0.9% (100 ml) 100 ML (13:51)
[2020-02-14 14:13] LABS: ABG PCO2 71.4 mmHg (35-45); ABG PH Result 7.18 (7.35-7.45); Alveolar-Arterial Oxygen Gradi 75.3 mmHg (5-10); Arterial Blood Gas Hematocrit 19.7 % (42-52); Base Excess ABG -2.1 mmol/L (-2.0-2.0); Blood Gas Allen Test Pos; Blood Gas Operator Identificat CAK; Blood Gas Sample Site Brachial, left; Blood Gas Sample Type Arterial; Carboxyhemoglobin 1.9 %THgb (0.4-20.1); HCO3 ABG 26.3 mmol/L (22-26); HGB O2 Sat 81.9 % (95-100); Ionized Calcium Level - ABG 1.2 mmol/L (1.1-1.4); Methemoglobin 1.7 % (0.4-1.5); Oxygen Device VENT; Oxygen Saturation ABG 84.9; PO2 ABG 54.7 mmHg (80.0-100.0); Potassium Level - ABG 5.1 mmol/L (3.5-5.0); Total Hemoglobin 6.4 g/dL (14-18)
--- NOTE | 2020-02-14 16:28 | PC.NURSE ---
Addendum entered by Mercy Márquez RN 02/14/20 17:10: Agonal breaths more frequent now. Original Note: Os sats 87%, agonal breathing noted. Eyes re open no sign of awareness when name called. Sceral edema remains.
--- NOTE | 2020-02-14 19:27 | PC.NURSE ---
Addendum entered by Wally Godinez RN 02/14/20 22:15: Dr. Prince at bedside 1929 gave verbal order for Levophed max of 20 mg/min Original Note: Beginning of shift assessment Labored agonal shallow respirations, O2 sat low 80's on 100% fio2, BP 72/55, LevoPhed started per V.O. from Dr. Mcdaniel, HCP at bedside 1929
--- NOTE | 2020-02-14 19:45 | PC.NURSE ---
Shift summary: Pt has remained sedate and on vent. Pt having agonal breaths throughout the day. Difficulty maintaining O2 sats more than 87%Hemaglobin dropped, 1 unit of PRBC transfused today. WBC increased, BNP increased. Lasix admin , only 100ml of teas colored urine after 3 hours produced. Fentayl gtt at 150mcg/min and propofol at 40 mcg/kg/min infusing to tkeep pt comfortable. New peripheral IVs started today. At end of shift pt's O2 sats are decreasing more, at 84%. Heart rate in 120's. Report given to RADHA Lo. Dr Prince called an notified of decrease in O2 sats and events of the day to keep him abreast of the situation. during call, O2 sats decreased even more. to come see pt.
--- NOTE | 2020-02-14 20:00 | PC.NURSE ---
Dr Prince, on unit, updated olamide on pt. Pt's B/P started dropping. O2 sats at 78%. Orders to start Levophed gtt received and started.
--- NOTE | 2020-02-14 20:09 | PC.NURSE ---
Addendum entered by Mercy Márquez RN 02/14/20 20:34: Dr Prince, still in unit,. at bedside. Original Note: Code called. Pt in V-tach. Attempted to call sonCarina 3 times. No answer. [phone]
--- NOTE | 2020-02-14 20:11 | PC.NURSE ---
Attempt to call grand daughter, Luana, grand daughter, to inform of code. Went to voice mail. Message left for need of call back.
--- NOTE | 2020-02-14 20:12 | PC.NURSE ---
Another ttempt to call britany Stinson, No answer.
--- NOTE | 2020-02-14 20:13 | PC.NURSE ---
Attempt to call brothmaisha Avendano, answering machine picked up. Message left for a call back.
--- NOTE | 2020-02-14 20:14 | PC.NURSE ---
Time of . See CODE summary.
--- NOTE | 2020-02-14 20:16 | PC.NURSE ---
Juan Alberto Jeffrey, called unit back, notified of . Staed he would get a hold of Milad and have him call up back.
--- NOTE | 2020-02-14 20:26 | PC.NURSE ---
MTS notified per Reina, reference number [id number]
--- NOTE | 2020-02-14 20:36 | PC.NURSE ---
Donte Stinson contacted, informed of pt passing
--- NOTE | 2020-02-14 22:04 | PC.NURSE ---
Shanthi from [employer] approved to release the body, not a candidate
--- NOTE | 2020-02-14 22:09 | PC.NURSE ---
Milad Jeffrey, patient's son at bedside. Requested we notify Elsa Reeder of the . Elsa Reeder answering service notified and spoke to Alexa who took the information and will notify the home. Son notified that we would call as soon as we heard back from them.
--- NOTE | 2020-02-14 22:42 | PC.NURSE ---
Katelyn came for body. Son notified by phone.
--- NOTE | 2020-02-14 23:16 | PC.NURSE ---
Addendum entered by Liv Hawthorne RN 02/14/20 23:58: Witnessed waste of 75 mL of Fentanyl Original Note: Waste Wasted remaining 75 ml Fentanyl from drip
--- NOTE | 2020-02-15 14:13 | PM.DDS ---
Discharge Providers DDS Date of Admission: 01/30/20 00:20 Date Summary Completed: 02/15/20 Attending Provider at Admission: Afshin Simons MD Time of : 20:21 Attending Provider at Discharge: Dave Bishop MD Primary Care Provider: Silverio Spain MD DS Diagnoses Hospital Diagnoses (1) Hypoxia: (2) Acute respiratory distress: (3) Pneumonitis: (4) History of pulmonary embolism: (5) Metastatic lung cancer (metastasis from lung to other site): Qualifiers: Laterality: unspecified laterality Qualified Code(s): C34.90 - Malignant neoplasm of unspecified part of unspecified bronchus or lung (6) Atrial fibrillation with rapid ventricular response: Problem details: Converted to sinus tachycardia in the ER Initiated Eliquis Added digoxin to metoprolol. (7) Physical deconditioning: (8) Anemia: Qualifiers: Anemia type: unspecified type Qualified Code(s): D64.9 - Anemia, unspecified (9) Nausea: Reason for Visit Reason for Visit: diff breathing Summary Date and Time of : Date of : 02/14/20 Time of : 20:21 Summary: Summary: This is a 69-year-old male with a past medical history of stage IIIb squamous cell lung cancer, received chemoradiation, history of pulmonary embolism, physical deconditioning, acute on chronic anemia who presented to [facility] on 01/30/2020 due to shortness of breath. Patient was recently discharged from [facility] on 01/14/2020, after being approximately 6 weeks in the hospital previously. Patient was admitted to [facility] for acute hypoxic respiratory failure multifactorial related to COPD, pneumonia, acute respiratory distress syndrome, stage IIIb squamous cell carcinoma, radiation pneumonitis, recent history of PCP pneumonia. Pulmonary was consulted to help with patient's acute respiratory failure. Patient was admitted initially to cardiac stepdown unit, started on broad-spectrum antibiotic therapy, steroids, Lasix therapy, received high flow, and was clinically monitored. He developed episodes of A. fib with RVR, managed with cardiology, placed on anticoagulation, managed with initially IV medications, transitioned to oral amiodarone and metoprolol. However patient's respiratory failure worsened, and he was moved to the intensive care unit. In the intensive care unit, his antibiotic therapy was broadened, received more aggressive Lasix therapy, steroid therapy, clinically monitored. Patient wanted to remain a full code, even after discussion of our concerns about his poor prognosis, high risk of morbidity and mortality on the ventilator with full interventions. Patient had episodes of acute respiratory failure, managed by BiPAP and medical therapy, however on 02/11/2020, patient went into acute respiratory failure, requiring intubation, mechanical ventilation, and sedation. Patient's Covid PCR was negative. Urine and Legionella bacterial antigens negative, MRSA nares negative. Blood cultures so far negative. TB QuantiFERON negative. Galactomannan blood test negative. Patient had a bronchoscopy by Dr. Monahan at bedside, there were concerns for possible diffuse alveolar hemorrhage. On the morning of 02/14/2020, patient developed significant episodes of desaturations on 100% FiO2, patient's ventilator settings were adjusted, however he continued to have these episodes, had episodes of agonal breathing. After discussion with patient's son, I advised of patient's critical status, poor prognosis, significant morbidity and mortality, and futility of further intervention and remaining a full code. Patient's son, Milad, told me that it was patient's wish to remain a full code, to continue all interventions, declined comfort care. Advised of risk and benefits, voiced understanding, all questions answered, agreed to remain a full code, continue all interventions. On 02/14/2020, patient was found to have a weak pulse, CODE BLUE was called, received 8 minutes of CPR, 2 doses of epinephrine, patient time of was 2020 on 02/14/2020. Additional Data: Confirmation of as documented by pronouncing clinician: no pulse Family: contacted Additional persons at bedside: nursing staff Attending/PCP notified?: I am attending Advance directives?: Yes Discharge Plan Discharge Patient Disposition: At Medical Facility Condition: Stable Prescriptions: No Action alprazolam [Xanax] 0.5 mg tablet 0.5 mg PO BID PRN (Reason: anxiety) Qty: 60 RF: 2 Zoloft 100 mg tablet 200 mg PO DAILY Qty: 30 RF: 2 multivitamin [Multiple Vitamins] Tablet 1 tab PO DAILY RF: 0 ferrous sulfate 325 mg (65 mg iron) tablet 325 mg PO BID Qty: 60 RF: 2 tamsulosin 0.4 mg capsule 0.4 mg PO BEDTIME RF: 0 oxycodone-acetaminophen 5-325 mg Tablet 1 - 2 tab PO Q4H PRN (Reason: Moderate To Severe Pain) Qty: 120 RF: 0 prochlorperazine maleate 10 mg tablet 10 mg PO Q4H PRN (Reason: mild nausea) RF: 0 ondansetron 8 mg tablet,disintegrating 8 mg PO Q8H PRN (Reason: Nausea) RF: 0 Eliquis 5 mg Tablet 2.5 mg PO BID Qty: 60 RF: 0 sucralfate 100 mg/mL Suspension 1 g PO AC&BEDTIME Qty: 300 RF: 0 alprazolam 0.25 mg Tablet 0.125 mg PO TID PRN (Reason: Anxiety) Qty: 30 RF: 0 metoprolol tartrate 25 mg Tablet 25 mg PO BID Qty: 60 RF: 0 magnesium hydroxide [Milk of Magnesia] 400 mg/5 mL Suspension 30 ml PO DAILY PRN (Reason: Constipation) Qty: 3000 RF: 0 pantoprazole 40 mg Tablet,Delayed Release (Dr/Ec) 40 mg PO DAILY Qty: 30 RF: 0 flecainide 100 mg Tablet 50 mg PO Q12H Qty: 60 RF: 0 levalbuterol HCl 1.25 mg/3 mL Solution For Nebulization 1.25 mg inhalation Q6H.RESPIRATORY Qty: 72 RF: 0 zolpidem 5 mg tablet 5 mg PO BEDTIME PRN (Reason: Sleep) RF: 0 sennosides-docusate sodium 8.6-50 mg capsule 1 tab-cap PO BID PRN (Reason: Constipation) RF: 0 Referrals: Silverio Spain MD [Primary Care Provider] - Discharge Date/Time: 02/14/20 22:30 Probable Cause of Probable cause of : Cardiac arrest DS Attestations Time Spent in /Discharge Care*: less than 30 min Quality - AMI: AMI present?: No Quality - Stroke: CVA present?: No Quality - VTE: VTE present?: No Coding Level of Care Code Acute Cylinder Block Mechanic for g [facility]wd Diagnoses Hypoxia R09.02 Acute respiratory distress R06.03 Pneumonitis J18.9 History of pulmonary embolism Z86.711 Metastatic lung cancer (metastasis from lung to other site) C34.90 Laterality: unspecified laterality Atrial fibrillation with rapid ventricular response I48.91 Physical deconditioning R53.81 Anemia D64.9 Anemia type: unspecified type Nausea R11.0
[2020-02-18 22:03] LABS: Pneumocystis Jirovecii DNA PCR NO DNA DETECTED copies/mL; Pneumocystis Jirovecii Source BAL
== END 2020-02-14 22:30 | disposition expired | DRG 208 ==
LOC: ER 23:17 → MEDSURG 01-30 00:20 → CSU 02-02 22:15 → ICU 02-08 10:20
PROVIDERS: Internal Medicine Cardiovascular Disease; Internal Medicine Pulmonary Disease; Student in an Organized Health Care Education/Training Program; Admitting Provider Internal Medicine; Emergency Provider Emergency Medicine; PCP Family Medicine; Visit Provider Family Medicine
DX: J70.0 Acute pulmonary manifestations due to radiation (principal); J96.21 Acute and chronic respiratory failure with hypoxia; C34.91 Malignant neoplasm of unspecified part of right bronchus or lung; C77.9 Secondary and unspecified malignant neoplasm of lymph node, unspecified; C78.02 Secondary malignant neoplasm of left lung; F50.01 Anorexia nervosa, restricting type; F33.2 Major depressive disorder, recurrent severe without psychotic features; D64.9 Anemia, unspecified; Z68.20 Body mass index [BMI] 20.0-20.9, adult; F41.1 Generalized anxiety disorder; Z86.711 Personal history of pulmonary embolism; I48.91 Unspecified atrial fibrillation; Z87.891 Personal history of nicotine dependence; F10.21 Alcohol dependence, in remission; Z92.3 Personal history of irradiation; K59.00 Constipation, unspecified; E87.6 Hypokalemia; W88.1XXD Exposure to radioactive isotopes, subsequent encounter; J43.2 Centrilobular emphysema; I95.9 Hypotension, unspecified; R19.7 Diarrhea, unspecified; I46.9 Cardiac arrest, cause unspecified
CPT/HCPCS: 12345; 36415; 36430; 36591; 36600; 51702; 71045; 71275; 74018; 74176; 80051; 80053; 80162; 80202; 80500; 81001; 82330; 82550; 82803; 82805; 82810; 83540; 83550; 83605; 83615; 83735; 83880; 83986; 84100; 84145; 84484; 85025; 85378; 85610; 86140; 86141; 86403; 86480; 86850; 86900; 86920; 87040; 87070; 87102; 87205; 87206; 87305; 87426; 87449; 87493; 87635; 87641; 87799; 88112; 88305; 89050; 93005; 94002; 94003; 94640; 94660; 94799; 96375; 99284; A4570; C8929; C9113; J0282; J0330; J0456; J0637; J0692; J0743; J1160; J1940; J2060; J2250; J2270; J2543; J2704; J2765; J2930; J3010; J3370; J3490; J7030; J7050; J7060; J7614; J7626; J7644; P9016; Q9956; Q9967